=== PATIENT | female | born 1955 | race Caucasian/White ===

== ENCOUNTER 2018-03-20 15:46 | Inpatient (IN) | payer MEDICAID ==
[2018-03-20] MEDS ORDERED: Nystatin Cream 100,000 u/gm Cream 15 gm TP ONE (18:45)
[2018-03-20] MEDS ORDERED: Diatrizoate Meglumine/Diatri 30 mL Sol ONE (19:26)
[2018-03-20 19:33] LABS: % BASOPHILS 0.2 % (0.0-2.0); % LYMPHOCYTES 25.4 % (20.0-50.0); % MONOCYTES 9.1 % (2.0-10.0); % NEUTROPHILS 64.3 % (40.0-80.0); EOSINOPHILE ABSOLUTE 0.1 Th/cmm (0.1-0.4); HEMATOCRIT 45.2 % (41.0-60); HEMOGLOBIN 15.3 gm/dL (12-16); LYMPHOCYTE ABSOLUTE 2.7 Th/cmm (1.5-3.0); MEAN CELL VOLUME 99.4 fl (81-100); MEAN CORPUSCULAR HEMOGLOBIN 33.7 pg (27.0-31.0); MEAN CORPUSCULAR HGB CONC 33.9 pg (28.0-36.0); MEAN PLATELET VOLUME 9.4 fl; NEUTROPHILE ABSOLUTE 6.8 Th/cmm (1.8-8.0); PLATELET COUNT 260 Th/cmm (150-400); RED BLOOD COUNT 4.55 Mil/cmm (3.80-5.10); RED CELL DISTRIBUTION WIDTH 11.1 % (11.5-20.0); WHITE BLOOD COUNT 10.6 Th/cmm (4.8-10.8)
--- NOTE | 2018-03-20 20:17 | ED Physician Chart ---
ED Chief Complaint/HPI - Patient Information Date Seen:: 03/20/18 Time Seen:: 16:06 Chief Complaint:: need for gtube replacement History of Present Illness:: need for gtube replacement in a patient who has a mercedes catheter in place. brown/yellow pus with 4 x 4 Allergies:: Allergies Allergy/AdvReac Type Severity Reaction Status Date / Time No Known Allergies Allergy Verified 03/20/18 15:49 Vitals:: Vital Signs - 8 hr 03/20/18 03/20/18 16:06 19:37 Temp 99.1 F 99.1 F HR 105 105 RR 18 20 BP 121/77 121/77 O2 Sat % 99 99 Review:: Nurse's Note Reviewed, Transfer documents Reviewed ED Review of Systems - Review of Systems General/Constitutional: No fever, No chills, No weight loss, No weakness, No diaphoresis, No edema, No loss of appetite Skin: No skin lesions, Rash, No rash, No bruising, Other (cellulitis around g tube site) Head: No headache, No light-headedness Eyes: No loss of vision, No pain, No diplopia ENT: No earache, No nasal drainage, No sore throat, No tinnitus Neck: No neck pain, No swelling, No thyromegaly, No stiffness, No mass noted Cardio Vascular: No chest pain, No palpitations, No PND, No orthopnea, No edema GI: No nausea, No vomiting, No diarrhea, No pain, No melena, No hematochezia, No constipation, No hematemesis, Other (gtube fell out and was replaced by a mercedes catheter. previous gtube was a 22 slovenian.) G/U: No dysuria, No frequency, No hematuria Musculoskeletal: No bone or joint pain, No back pain, No muscle pain Endocrine: No polyuria, No polydipsia Psychiatric: No prior psych history, No depression, No anxiety, No suicidal ideation Hematopoietic: No bruising, No lymphadenopathy Allergic/Immuno: No urticaria, No angioedema Neurological: No syncope, No focal symptoms, No weakness, No paresthesia, No headache, No seizure, No dizziness, No confusion, No vertigo ED Past Medical History - Past Medical History Obtainable: No Past Medical History: HTN, PUD/GERD, Seizures, Other (Hepatitis B and C; developmentally disabled; quadriplegic) Family Medical History - Family Member Mother History Unknown: Yes ED Physical Exam - Physical Examination General/Constitutional: Awake, Alert, No distress Other Gen/Cons comments:: chronically ill appearing. Head: Atraumatic Eyes: Lids, conjuctiva normal, PERRL, EOMI Other Skin comments:: cellulitis around g tube site. ENMT: External ears, nose nl Neck: Nontender, No nuchal rigidity, No stridor Respiratory: Nl effort/Exclusion, Clear to Auscultation, No Wheeze/Rhonchi/Rales Cardio Vascular: RRR, No murmur, gallop, rubs, NL S1 S2 GI: No tenderness/rebounding/guarding, No organomegaly, No hernia, Normal BS's, Nondistended, No mass/bruits, No McBurney tenderness Other GI comments:: g tube with cellulitis around it of 3 x 3 inches in size. brown/yellow pus on gauze dressing. Other Extremities comments:: contracted extremities. ED Labs/Radiology/EKG Results - Lab Results Results: Laboratory Tests 03/20/18 19:15 WBC 10.6 RBC 4.55 Hgb 15.3 Hct 45.2 MCV 99.4 MCH 33.7 H MCHC Differential 33.9 RDW 11.1 L Plt Count 260 MPV 9.4 Neutrophils % 64.3 Lymphocytes % 25.4 Monocytes % 9.1 Eosinophils % 1.0 Basophils % 0.2 ED Assessment - Assessment General Assessment: gastrograffin extravasation of 50% of dye inserted. 50% in GI tract. Will order a CT scan. sign out to Dr. Green at 8:22 p.m. - Procedures Procedures:: g tube replace with a 22 Danish without any difficulty. ky jelly used and gtube easily inserted without difficulty. ED Septic Shock - . Is Septic Shock (SBP<90, OR Lactate>4 mmol\L) present?: No - <6hrs of presentation: Vital Signs: Vital Signs - 8 hr 03/20/18 03/20/18 16:06 19:37 Temp 99.1 F 99.1 F HR 105 105 RR 18 20 BP 121/77 121/77 O2 Sat % 99 99
[2018-03-20] MEDS: Sodium Chloride 0.9% 1,000 ML IV SCH (20:30)
[2018-03-20 20:38] LABS: ALBUMIN 3.6 gm/dL (3.7-5.3); ALKALINE PHOSPHATASE 93 U/L (34-104); ANION GAP 13.6 (7.0-16.0); BILIRUBIN,TOTAL 0.7 mg/dL (0.3-1.0); BUN - UREA NITROGEN 16 mg/dL (7-25); CALCIUM SERUM 8.9 mg/dL (8.6-10.3); CHLORIDE 104 mEq/L (98-107); CREATININE - SERUM 0.4 mg/dL (0.6-1.2); GFR AFRICAN-AMERICAN > 60.0 ml/min (>90); GFR NON AFRICAN-AMERICAN > 60.0 ml/min; GLUCOSE 109 mg/dL (70-105); MAGNESIUM 1.9 mg/dL (1.9-2.7); PHOSPHOROUS 3.2 mg/dL (2.5-5.0); POTASSIUM SERUM 3.6 mEq/L (3.5-5.1); SGOT 20 U/L (13-39); SGPT/ALT 25 U/L (7-52); SODIUM SERUM 143 mEq/L (136-145); TOTAL PROTEIN,SERUM 7.3 gm/dL (6.0-8.3)
[2018-03-20] MEDS: cefTRIAXone 1 GM in Sodium Chloride 0.9% 50 ML IV SCH (22:04)
[2018-03-21 05:14] LABS: RED CELL DISTRIBUTION WIDTH 11.2 % (11.5-20.0)
[2018-03-21 05:34] LABS: % BASOPHILS 1.1 % (0.0-2.0); % EOSINOPHILS 2.4 % (0.0-5.0); % LYMPHOCYTES 26.9 % (20.0-50.0); % MONOCYTES 8.9 % (2.0-10.0); % NEUTROPHILS 60.7 % (40.0-80.0); BASOPHILE ABSOLUTE 0.1 Th/cumm (0-0.2); EOSINOPHILE ABSOLUTE 0.2 Th/cmm (0.1-0.4); HEMATOCRIT 43.3 % (41.0-60); HEMOGLOBIN 14.9 gm/dL (12-16); LYMPHOCYTE ABSOLUTE 2.5 Th/cmm (1.5-3.0); MEAN CELL VOLUME 99.1 fl (81-100); MEAN CORPUSCULAR HEMOGLOBIN 34.2 pg (27.0-31.0); MEAN CORPUSCULAR HGB CONC 34.5 pg (28.0-36.0); MEAN PLATELET VOLUME 10.1 fl; MONOCYTE ABSOLUTE 0.8 Th/cmm (0.3-1.0); NEUTROPHILE ABSOLUTE 5.7 Th/cmm (1.8-8.0); PLATELET COUNT 263 Th/cmm (150-400); RED BLOOD COUNT 4.37 Mil/cmm (3.80-5.10); WHITE BLOOD COUNT 9.3 Th/cmm (4.8-10.8)
[2018-03-21 05:52] LABS: ANION GAP 15.1 (7.0-16.0); BUN - UREA NITROGEN 18 mg/dL (7-25); CALCIUM SERUM 8.7 mg/dL (8.6-10.3); CARBON DIOXIDE 24.9 mEq/L (21.0-31.0); CHLORIDE 108 mEq/L (98-107); CHOLESTEROL 156 mg/dL (<200); CREATININE - SERUM 0.4 mg/dL (0.6-1.2); GFR AFRICAN-AMERICAN > 60.0 ml/min (>90); GFR NON AFRICAN-AMERICAN > 60.0 ml/min; GLUCOSE 103 mg/dL (70-105); HDL -HIGH DENSITY LIPOPROTEIN 65 mg/dL (23-92); MAGNESIUM 1.9 mg/dL (1.9-2.7); SODIUM SERUM 144 mEq/L (136-145); TRIGLYCERIDES 60 mg/dL (<150)
--- NOTE | 2018-03-21 07:12 | Diagnostic Imaging Report ---
Exam: CT examination abdomen pelvis HISTORY: Gastrostomy tube replacement Total DLP equals 411 CTDI equals 10.1 Findings: Multiple contiguous thin section of the abdomen pelvis obtained from lower thorax to pubic symphysis without the administration of the intravenous contrast material. Oral contrast was utilized. The study was correlated with the prior examination of 07/15/2016. The study demonstrates normal aeration of lung parenchyma the bases. There is evidence for severe scoliosis of thoracic and lumbar spine to the right. The liver parenchyma spleen are normal. There is evidence of nonobstructing calculi bilaterally. Pancreas poorly visualized. The gallbladder contains calcifications consistent with cholelithiasis. No free fluid is noted. There is evidence for fecal impaction. Gastrostomy tube in the stomach. There is evidence for extravasated contrast material on the skin. The insertion of the gastrostomy tube. The uterine bladder is poorly visualized. IMPRESSION: Cholelithiasis. Multiple nonobstructing bilateral calculi. Fecal impaction. Gastrostomy tube in the stomach with extravasated contrast material on the skin surface. Clinical correlation recommended. The oral contrast progresses normal fashion to small bowel loops with reflux into the colon. The uterus is intact. Severe deformity of the hip joints bilaterally appreciated.
--- NOTE | 2018-03-21 07:50 | Diagnostic Imaging Report ---
Exam: Gastrostomy tube placement HISTORY: Replacement gastrostomy tube Findings: Upon injection of contrast material into gastrostomy tube there is normal opacification stomach. IMPRESSION: Gastrostomy tube in the stomach.
[2018-03-21] MEDS: Nystatin Cream 100,000 u/gm Cream 15 gm TP SCH ×2 (08:45→18:14)
[2018-03-21] MEDS ORDERED: Lactulose 10 Gm/15 mL 30mL UDC GT PRN (10:47)
[2018-03-21] MEDS ORDERED: Fleet Enema 135 mL RC PRN (10:47)
[2018-03-21] MEDS ORDERED: Albuterol/Ipratropium Neb 3 ML AERS HHN PRN (10:47)
[2018-03-21] MEDS ORDERED: Magnesium Hydroxide (MOM) 30 mL UDC GT PRN (10:49)
[2018-03-21] MEDS ORDERED: Non-Formulary Item 1 EA (Amino Acids/Protein Hydrolys [Pro-Stat Awc Liquid] 30 ML) GT SCH (11:00)
[2018-03-21] MEDS: Sodium Chloride 0.9% 1,000 ML IV SCH (12:05)
[2018-03-21] MEDS: Calcium Carb/Vit D 500 mg/200 U Tab GT SCH ×2 (13:42→18:10)
[2018-03-21] MEDS: Docusate Sodium 100 mg/10 mL UD GT SCH ×2 (13:42→18:10)
[2018-03-21] MEDS: Levetiracetam 500 mg/5mL 5mL UDSyr *for ORAL USE ONLY GT SCH ×2 (13:42→18:09)
[2018-03-21] MEDS: carBAMazepine 200 mg/10 mL UDC GT SCH ×2 (13:42→22:48)
[2018-03-21] MEDS: Multivitamin w/ Minerals Tab GT SCH (13:42)
--- NOTE | 2018-03-21 15:45 | History & Physical ---
ADMIT DATE: 03/20/2018 CHIEF COMPLAINT: G-tube discharge/cellulitis. HISTORY OF PRESENT ILLNESS: This is a 62-year-old female brought in from [facility] with the above-mentioned findings. It is unclear as to how long it has been noted that her G-tube had drainage and redness. She was brought into the ED where ER physician replaced the G-tube, however the old G-tube site was noted to have copious amounts of brown yellowish discharge as well as extensive surrounding skin redness consistent with cellulitis. Pertinent findings include an abdominal pelvis CT that showed: 1. Cholelithiasis. 2. Multiple obstructing bilateral calculi. 3. Fecal impaction. 4. Gastrostomy tube in the stomach with extravasated contrast material on the skin surface. 5. Oral contrast progresses in normal fashion to the small bowel loops with reflux into the colon. The G-tube was replaced by the ER physician and upper GI series showed confirmation of the G-tube been in place. PAST MEDICAL HISTORY: Previous GI bleed, admitted on 07/15/2016 for GI bleed, previous G-tube cellulitis, history of constipation, seizure disorder, mental retardation, intellectual disability, dementia, and quadriplegia. PAST SURGICAL HISTORY: G-tube placement and replacement. FAMILY HISTORY: Likely noncontributory to this admission. SOCIAL HISTORY: No tobacco, ETOH or illicit drug usage. Lives at a half-way ([facility]). ALLERGIES: NKDA. OUTPATIENT MEDICATIONS: Tylenol 650 q. 4 p.r.n. for fever or pain, amino acids and proteins 30 mL every day, aspirin 81 every day, Dulcolax 10 mg per rectum q.96 hours p.r.n. for constipation, calcium citrate and vitamin D3 b.i.d., carbamazepine 400 mg q. 12, Catapres 0.1 q. 12, docusate sodium 200 mg b.i.d., Nexium 40 mg day, Fleet enema 135 mL per rectum q.96 hours for severe constipation, DuoNeb q. 6 hours p.r.n. for SOB, lactulose 10 grams b.i.d. to every day, Keppra 5 mL via G-tube b.i.d., milk of magnesia 30 mL q. 72 hours, metoprolol 12.5 q.p.m., multivitamins and minerals daily. REVIEW OF SYSTEMS: Unable to be done given patient's condition, but there are no reports of fever, chills, no reports of nausea, vomiting, coffee-ground emesis or diarrhea. There is a chronic component of constipation given her history, but no reports of recent constipation or diarrhea noted. PHYSICAL EXAMINATION: VITAL SIGNS: Temperature 98.2. She has been afebrile, pulse 98-99, respirations 18-19, blood pressure 128/75 with sats of 94-97% on room air. GENERAL: She is a developmentally delayed female who appears to be well nourished, in no distress. Currently, she is curled up in bed, appeared to be comfortable, nontoxic. HEAD AND NECK: Normocephalic, atraumatic. Pupils are reactive to light. Extraocular movements are intact. Oropharynx is moist and clear. NECK: There is no JVD or LAD. CARDIOVASCULAR: Regular rate and rhythm without any murmurs. LUNGS: Decreased at the bases, but otherwise clear to auscultation bilaterally. ABDOMEN: Soft, supple, nontender, nondistended. G-tube site, there is redness around the G-tube stoma and the gauze has a brown yellowish discharge. LOWER EXTREMITIES: No pedal edema. LABORATORY DATA ON ADMISSION: CBC was essentially within normal limits. Chem-7 was essentially within normal limits. Lactic acid level 1.2. LFTs were within normal limits. Albumin 3.6. DIAGNOSTICS: Please refer to the HPI. ASSESSMENT: 1. G-tube site cellulitis, rule out abscess/fistula. 2. History of dysphagia with PEG placement. 3. History of previous GI bleed -- currently stable. 4. History of previous gastritis. 5. History of seizure disorder. 6. History of essential hypertension. 7. History of hepatitis B positive. 8. History of mental retardation/intellectual disability. PLAN: The patient has been admitted to the medical floor for further management and care. The patient has been started on IV antibiotics, IV fluids, and Nystatin cream to cover for possible fungal dermatitis. She will be kept on her other medications as scheduled and I will ask for a GI consult for further management and care. [facility]# [id number] [facility]
[2018-03-21] MEDS: cefTRIAXone 1 GM in Sodium Chloride 0.9% 50 ML IV SCH (22:50)
[2018-03-22 05:10] LABS: % EOSINOPHILS 7.7 % (0.0-5.0); % LYMPHOCYTES 36.5 % (20.0-50.0); % MONOCYTES 10.4 % (2.0-10.0); % NEUTROPHILS 44.4 % (40.0-80.0); BASOPHILE ABSOLUTE 0.1 Th/cumm (0-0.2); EOSINOPHILE ABSOLUTE 0.5 Th/cmm (0.1-0.4); HEMATOCRIT 39.6 % (41.0-60); HEMOGLOBIN 13.4 gm/dL (12-16); LYMPHOCYTE ABSOLUTE 2.4 Th/cmm (1.5-3.0); MEAN CELL VOLUME 99.4 fl (81-100); MEAN CORPUSCULAR HEMOGLOBIN 33.5 pg (27.0-31.0); MEAN CORPUSCULAR HGB CONC 33.7 pg (28.0-36.0); MEAN PLATELET VOLUME 9.3 fl; MONOCYTE ABSOLUTE 0.7 Th/cmm (0.3-1.0); NEUTROPHILE ABSOLUTE 2.9 Th/cmm (1.8-8.0); PLATELET COUNT 242 Th/cmm (150-400); RED BLOOD COUNT 3.99 Mil/cmm (3.80-5.10); WHITE BLOOD COUNT 6.6 Th/cmm (4.8-10.8)
[2018-03-22 05:28] LABS: ANION GAP 11.6 (7.0-16.0); BUN - UREA NITROGEN 15 mg/dL (7-25); CALCIUM SERUM 8.3 mg/dL (8.6-10.3); CARBON DIOXIDE 29.2 mEq/L (21.0-31.0); CHLORIDE 107 mEq/L (98-107); CREATININE - SERUM 0.4 mg/dL (0.6-1.2); GFR AFRICAN-AMERICAN > 60.0 ml/min (>90); GFR NON AFRICAN-AMERICAN > 60.0 ml/min; GLUCOSE 98 mg/dL (70-105); MAGNESIUM 1.8 mg/dL (1.9-2.7); POTASSIUM SERUM 3.8 mEq/L (3.5-5.1); SODIUM SERUM 144 mEq/L (136-145)
[2018-03-22] MEDS: Nystatin Cream 100,000 u/gm Cream 15 gm TP SCH (09:45)
[2018-03-22] MEDS: Levetiracetam 500 mg/5mL 5mL UDSyr *for ORAL USE ONLY GT SCH ×2 (09:45→17:58)
[2018-03-22] MEDS: Multivitamin w/ Minerals Tab GT SCH (09:46)
[2018-03-22] MEDS: carBAMazepine 200 mg/10 mL UDC GT SCH ×2 (09:46→23:04)
[2018-03-22] MEDS: Sodium Chloride 0.9% 1,000 ML IV SCH (09:47)
[2018-03-22] MEDS: Docusate Sodium 100 mg/10 mL UD GT SCH ×2 (09:50→17:57)
[2018-03-22] MEDS: Calcium Carb/Vit D 500 mg/200 U Tab GT SCH ×2 (09:50→17:57)
[2018-03-22 09:59] LABS: ESR SEDIMENTATION SED RATE 41 mm/hr (0-30)
[2018-03-22] MEDS ORDERED: MINERAL OIL ENEMA 135 ML BOTTLE RC ONE (10:00)
[2018-03-22] MEDS ORDERED: D5-0.45NS w/10 mEq KCL 1,000 ML IV SCH ×2 (10:00→16:00)
[2018-03-22] MEDS ORDERED: Mag Sulfate 2gm/50mL Premix 2 GM/50 ML BAG IV ONE (10:04)
--- NOTE | 2018-03-22 12:10 | Diagnostic Imaging Report ---
CHEST X-RAY: AP view INDICATION: Pneumonia COMPARISON: Chest x-ray 07/15/[address] abdomen and pelvis on 03/20/2018 FINDINGS: There is elevation of left hemidiaphragm. Suboptimal lung markings are noted. Left basal atelectatic changes seen with no focal consolidation or effusions. Advanced degenerative changes of spine are noted. Borderline prominent heart is noted. Gas-filled loops of the upper abdomen are noted. IMPRESSION: Left basal subsegmental atelectatic changes. No focal consolidation identified Suboptimal lung volumes. Gas-filled loops of bowel noted possibly due to an ileus..
--- NOTE | 2018-03-22 12:11 | Diagnostic Imaging Report ---
KUB single view HISTORY: Abdominal pain. COMPARISON: CT abdomen and pelvis on 03/20/2018 FINDINGS: There is mild decrease in the burden of stool when compared to prior recent CT examination. Moderate stool is noted greatest within the ascending colon and rectum. Generalized gaseous filled loops of bowel are noted. Advanced degenerative changes of the spine are noted with severe scoliosis. Deformities of the pelvis are again noted. Percutaneous gastric feeding tube is noted. IMPRESSION: Overall mild decrease in stool burden compared recent CT examination on 03/20/2018. Persistent moderate stool is seen in the region of the ascending colon and rectum.
[2018-03-22] MEDS: metroNIDAZOLE 500mg/NS 100mL 500 MG/100 ML BAG IV SCH ×2 (13:47→20:44)
[2018-03-22] MEDS ORDERED: Amino Acids 3% / Electrolytes 1,000 ML IV SCH (16:00)
[2018-03-22] MEDS: Albuterol/Ipratropium Neb 3 ML AERS HHN PRN ×2 (17:24→21:56)
[2018-03-22] MEDS: Zinc Oxide Ointment 60 gm TP SCH (20:44)
[2018-03-22] MEDS: cefTRIAXone 1 GM in Sodium Chloride 0.9% 50 ML IV SCH (23:07)
[2018-03-23] MEDS ORDERED: Levetiracetam 500 mg/5mL 5mL Vial IV ONE (00:40)
[2018-03-23] MEDS: metroNIDAZOLE 500mg/NS 100mL 500 MG/100 ML BAG IV SCH ×3 (05:36→20:38)
[2018-03-23] MEDS: Albuterol/Ipratropium Neb 3 ML AERS HHN PRN (07:16)
[2018-03-23 08:28] LABS: % BASOPHILS 0.2 % (0.0-2.0); % EOSINOPHILS 4.4 % (0.0-5.0); % LYMPHOCYTES 29.3 % (20.0-50.0); % MONOCYTES 9.1 % (2.0-10.0); EOSINOPHILE ABSOLUTE 0.3 Th/cmm (0.1-0.4); HEMATOCRIT 37.8 % (41.0-60); HEMOGLOBIN 12.6 gm/dL (12-16); LYMPHOCYTE ABSOLUTE 1.8 Th/cmm (1.5-3.0); MEAN CORPUSCULAR HEMOGLOBIN 32.9 pg (27.0-31.0); MEAN CORPUSCULAR HGB CONC 33.3 pg (28.0-36.0); MEAN PLATELET VOLUME 9.5 fl; MONOCYTE ABSOLUTE 0.6 Th/cmm (0.3-1.0); NEUTROPHILE ABSOLUTE 3.4 Th/cmm (1.8-8.0); PLATELET COUNT 244 Th/cmm (150-400); RED BLOOD COUNT 3.81 Mil/cmm (3.80-5.10); RED CELL DISTRIBUTION WIDTH 10.7 % (11.5-20.0); WHITE BLOOD COUNT 6.1 Th/cmm (4.8-10.8)
[2018-03-23 08:38] LABS: ANION GAP 12.1 (7.0-16.0); BUN - UREA NITROGEN 10 mg/dL (7-25); CARBON DIOXIDE 25.7 mEq/L (21.0-31.0); CHLORIDE 98 mEq/L (98-107); CREATININE - SERUM 0.4 mg/dL (0.6-1.2); GFR AFRICAN-AMERICAN > 60.0 ml/min (>90); GFR NON AFRICAN-AMERICAN > 60.0 ml/min; GLUCOSE 113 mg/dL (70-105); MAGNESIUM 2.2 mg/dL (1.9-2.7); PHOSPHOROUS 3.7 mg/dL (2.5-5.0); POTASSIUM SERUM 4.8 mEq/L (3.5-5.1); SODIUM SERUM 131 mEq/L (136-145)
[2018-03-23] MEDS ORDERED: D5-0.45NS 1,000 ML IV SCH (09:15)
[2018-03-23] MEDS: Nystatin Cream 100,000 u/gm Cream 15 gm TP SCH (09:34)
[2018-03-23] MEDS ORDERED: MINERAL OIL ENEMA 135 ML BOTTLE RC ONE (09:44)
--- NOTE | 2018-03-23 09:44 | GI Progress Note ---
Subjective - Review of Systems Service Date: 03/23/18 Subjective: G tube site still erythematous, with some drainage around the tube Objective - Results Result Diagrams: 03/23/18 08:08 03/23/18 08:08 Recent Labs: Laboratory Last Values WBC 6.1 Th/cmm (4.8-10.8) 03/23/18 08:08 RBC 3.81 Mil/cmm (3.80-5.10) 03/23/18 08:08 Hgb 12.6 gm/dL (12-16) 03/23/18 08:08 Hct 37.8 % (41.0-60) L 03/23/18 08:08 MCV 99.0 fl (81-100) 03/23/18 08:08 MCH 32.9 pg (27.0-31.0) H 03/23/18 08:08 MCHC Differential 33.3 pg (28.0-36.0) 03/23/18 08:08 RDW 10.7 % (11.5-20.0) L 03/23/18 08:08 Plt Count 244 Th/cmm (150-400) 03/23/18 08:08 MPV 9.5 fl 03/23/18 08:08 Neutrophils % 57.0 % (40.0-80.0) 03/23/18 08:08 Lymphocytes % 29.3 % (20.0-50.0) 03/23/18 08:08 Monocytes % 9.1 % (2.0-10.0) 03/23/18 08:08 Eosinophils % 4.4 % (0.0-5.0) 03/23/18 08:08 Basophils % 0.2 % (0.0-2.0) 03/23/18 08:08 ESR 41 mm/hr (0-30) H 03/22/18 04:50 Sodium 131 mEq/L (136-145) L 03/23/18 08:08 Potassium 4.8 mEq/L (3.5-5.1) 03/23/18 08:08 Chloride 98 mEq/L (98-107) 03/23/18 08:08 Carbon Dioxide 25.7 mEq/L (21.0-31.0) 03/23/18 08:08 Anion Gap 12.1 (7.0-16.0) 03/23/18 08:08 BUN 10 mg/dL (7-25) 03/23/18 08:08 Creatinine 0.4 mg/dL (0.6-1.2) L 03/23/18 08:08 Est GFR ( Amer) > 60.0 ml/min (>90) 03/23/18 08:08 Est GFR (Non-Af Amer) > 60.0 ml/min 03/23/18 08:08 BUN/Creatinine Ratio 25.0 03/23/18 08:08 Glucose 113 mg/dL (70-105) H 03/23/18 08:08 Whole Bld Lactic Acid 1.20 mmol/L (0.60-1.99) 03/20/18 19:15 Calcium 8.0 mg/dL (8.6-10.3) L 03/23/18 08:08 Phosphorus 3.7 mg/dL (2.5-5.0) 03/23/18 08:08 Magnesium 2.2 mg/dL (1.9-2.7) 03/23/18 08:08 Total Bilirubin 0.7 mg/dL (0.3-1.0) 03/20/18 19:15 AST 20 U/L (13-39) 03/20/18 19:15 ALT 25 U/L (7-52) 03/20/18 19:15 Alkaline Phosphatase 93 U/L (34-104) 03/20/18 19:15 C-Reactive Protein < 0.2 mg/dL (0.0-0.9) 03/22/18 04:50 Total Protein 7.3 gm/dL (6.0-8.3) 03/20/18 19:15 Albumin 3.6 gm/dL (3.7-5.3) L 03/20/18 19:15 Globulin 3.7 gm/dL 03/20/18 19:15 Albumin/Globulin Ratio 1.0 (1.0-1.8) 03/20/18 19:15 Prealbumin 13 mg/dL (10-36) 03/22/18 04:50 Triglycerides 60 mg/dL (<150) 03/21/18 04:45 Cholesterol 156 mg/dL (<200) 03/21/18 04:45 LDL Cholesterol Direct 87 mg/dL (75-193) 03/21/18 04:45 HDL Cholesterol 65 mg/dL (23-92) 03/21/18 04:45 TSH 1.11 uIU/ml (0.34-5.60) 03/21/18 04:45 Vancomycin Trough 5.0 ug/mL (5-10) 03/23/18 08:08 - Physical Exam Vitals and I&O: Vital Signs Temp 97.1 F 03/23/18 07:44 Pulse 84 03/23/18 07:44 Resp 18 03/23/18 07:44 BP 135/84 03/23/18 07:44 Pulse Ox 98 03/23/18 07:44 Intake & Output 03/22/18 03/23/18 03/23/18 18:59 06:59 18:59 Intake Total 350 500 Balance 350 500 Weight (lbs) 45.813 kg Intake: Intake, IV Amount 350 100 Vancomycin HCl 1 gm In 250 Sodium Chloride 0.9% 250 ml @ 166.667 mls/hr IV Q24HR@0900 [facility] Rx#: [id number] metroNIDAZOLE 500mg/NS 100 100 100mL 500 mg In 100 ml @ 100 mls/hr IV Q8HR [facility] Rx #:[id number] TPN/PPN 400 Other: # Voids 2 # Bowel Movements 1 Weight Source Bedscale Active Medications: Current Medications Acetaminophen (Tylenol 650mg/20.3ml Suspension) 650 mg GT Q4HR PRN PRN Reason: Pain Or Fever >100 Stop: 05/20/18 10:46 Albuterol/Ipratropium (Duoneb Neb) 3 ml HHN [id number] PRN PRN Reason: sob Stop: 05/20/18 10:46 Last Admin: 03/23/18 07:16 Dose: 3 ml Bisacodyl (Dulcolax 10 Mg Supp) 10 mg RC Q96H PRN PRN Reason: Constipation Stop: 05/20/18 10:46 Last Admin: 03/22/18 19:42 Dose: 10 mg Calcium/Vitamin D (Oscal W/Vitamin D) 2 tab GT BID [facility] Stop: 05/20/18 10:59 Last Admin: 03/22/18 17:57 Dose: Not Given Carbamazepine (Tegretol) 400 mg GT Q12HR@0900,2100 [facility] Stop: 05/20/18 10:59 Last Admin: 03/22/18 23:04 Dose: Not Given Docusate Sodium (Colace) 200 mg GT BID [facility] Stop: 05/20/18 10:59 Last Admin: 03/22/18 17:57 Dose: Not Given Ceftriaxone Sodium 1 gm/ (Sodium Chloride) 50 mls @ 100 mls/hr IV Q24H [facility] Stop: 05/19/18 21:59 Last Admin: 03/22/18 23:07 Dose: 100 mls/hr Vancomycin HCl 1 gm/ Sodium (Chloride) 250 mls @ 166.667 mls/hr IV Q24HR@0900 [facility] Stop: 05/20/18 10:59 Last Admin: 03/23/18 09:34 Dose: 167 mls/hr Metronidazole (Flagyl) 500 mg in 100 mls @ 100 mls/hr IV Q8HR [facility] Stop: 05/21/18 12:59 Last Admin: 03/23/18 05:36 Dose: 100 mls/hr Amino Acids/Electrolytes (Procalamine) 1,000 mls @ 41 mls/hr IV .Q24H [facility] Stop: 05/21/18 15:59 Last Admin: 03/22/18 19:01 Dose: 41 mls/hr Levetiracetam 500 mg/ Sodium (Chloride) 105 mls @ 400 mls/hr IV Q12H [facility] Stop: 05/21/18 22:59 Last Admin: 03/23/18 00:49 Dose: 400 mls/hr Dextrose/Sodium Chloride (D5-0.45ns) 1,000 mls @ 35 mls/hr IV .Q24H [facility] Stop: 05/22/18 09:14 Last Admin: 03/23/18 09:35 Dose: 35 mls/hr Lactulose (Cephulac) 10 gm GT DAILY PRN PRN Reason: Constipation Last Admin: 03/22/18 13:47 Dose: 10 gm Magnesium Hydroxide (Milk Of Magnesia) 30 ml GT Q72H PRN PRN Reason: Constipation Stop: 05/20/18 10:48 Metoprolol Tartrate (Lopressor) 12.5 mg GT QPM [facility] Stop: 05/20/18 16:59 Last Admin: 03/22/18 17:58 Dose: Not Given Miscellaneous (Vancomycin Iv Per Pharmacy) 1 ea MC DAILY [facility] Stop: 05/20/18 11:29 Miscellaneous (Ppn Per Pharmacy) 1 ea PRN PRN PRN Reason: PROTOCOL Stop: 05/21/18 14:48 Nystatin (Mycostatin Cream) 1 appl TP DAILY [facility] Stop: 05/22/18 08:59 Last Admin: 03/23/18 09:34 Dose: 1 appl Petrolatum (Zinc Oxide) 1 appl TP HS [facility] Stop: 05/21/18 20:59 Last Admin: 03/22/18 20:44 Dose: 1 appl Sodium Phosphate (Fleet Enema) 135 ml RC Q96H PRN PRN Reason: IF DULCOLAX INEFFECTIVE Stop: 05/20/18 10:46 General: Alert Cardiovascular: Regular rate Abdomen: Bowel sounds, Other (g tube site with ring of erythema, drainage coming from around the tube), no Soft, no Tender, no Hepatomegaly, no Splenomegaly - Procedures Procedures: Procedures Procedure Code Date ASPIR CURETT UTERUS NEC 69.59 06/12/11 CHANGE FEEDING DEVICE IN UP INTEST TRACT, TELEPHONE BETTING CLERK APPROACH 6J52XQB 01/27/16 CHANGE GASTROSTOMY TUBE 86490 05/21/15 DILATION AND CURETTAGE 32502 06/12/11 EGD BIOPSY SINGLE/MULTIPLE 92875 07/15/16 EXCISION OF STOMACH, ENDO, DIAGN [id number] 07/15/16 INSERTION OF FEEDING DEVICE INTO STOMACH, ENDO [id number] 07/15/16 LAPARO PROC ABDM/PER/OMENT 06553 07/29/13 LAPAROSCOP APPENDECTOMY 47.01 07/29/13 LAPAROSCOP LYSIS-PERITONEAL ADHES 54.51 07/29/13 LAPAROSCOPY APPENDECTOMY 18993 07/29/13 REPLACE GASTROSTOMY TUBE 97.02 07/26/14 Assessment/Plan - Assessment Assessment: # G tube site cellulitis # Dysphagia # Developmental delay At this point, unclear if we will be able to save this tube. The erythema appears about the same today, despite vancomycin and nystatin cream. CT scan does not show obvious abscess Plan: - hold feeding, and convert meds to IV form if possible - if the site does not improve with this conservative approach, then will need to pull the tube. In that case, new G tube would likely need to wait until the area has completely healed - typically 1-2 weeks - nystatin and zinc cream orderd - cont abx
[2018-03-23] MEDS: Docusate Sodium 100 mg/10 mL UD GT SCH ×2 (09:51→16:48)
[2018-03-23] MEDS: carBAMazepine 200 mg/10 mL UDC GT SCH ×2 (09:51→21:06)
[2018-03-23] MEDS: Calcium Carb/Vit D 500 mg/200 U Tab GT SCH (09:51)
[2018-03-23] MEDS: Multivitamin w/ Minerals Tab GT SCH (09:51)
--- NOTE | 2018-03-23 13:47 | Consultation ---
DATE OF CONSULTATION: 03/22/2018 INPATIENT GASTROINTESTINAL CONSULTATION CONSULTING PHYSICIAN: Dr. Loaiza. REASON FOR CONSULTATION: G-tube site cellulitis and leaking around the G-tube. HISTORY OF PRESENT ILLNESS: The patient is a 62-year-old female with past medical history significant for seizure disorder, developmental delay and quadriplegia, admitted to the hospital with leakage and redness around her G-tube from her facility. It is unclear when the patient developed these signs of infection, but on presentation, she has copious leakage around the tube as well as redness around her tube as well. A CT scan has shown that the G-tube is in the correct location and there is no obvious abscess. At current time, she is having some liquid around the tube even though no tube feeds are going in. PAST MEDICAL HISTORY: Developmental delay, quadriplegia, constipation, dysphagia with a G-tube, seizure disorder. PAST SURGICAL HISTORY: G-tube placement. FAMILY HISTORY: Noncontributory. SOCIAL HISTORY: No illicit drug use. She lives at a [place] [facility]. ALLERGIES: No known drug allergies. REVIEW OF SYSTEMS: Not possible, the patient is not able to participate in the interview. CURRENT MEDICATIONS: Include Tylenol, albuterol, bisacodyl, calcium, vitamin D, carbamazepine, ceftriaxone, Colace, lactulose, Keppra, milk of magnesia, Lopressor, Flagyl, Nystatin, zinc, Fleet enema, vancomycin. PHYSICAL EXAMINATION: VITAL SIGNS: Blood pressure is 148/86, pulse 97 beats per minute, respiratory rate of 20, temperature is 98.3. GENERAL: The patient is lying on her back. She is alert and oriented x 0, in no apparent distress. HEAD, EARS, EYES, NOSE AND THROAT: Normocephalic, atraumatic appearing head. Her eyes are open, she does not track. Pupils are otherwise equal and reactive. Moist mucous membrane. NECK: No obvious JVD or thyromegaly. CHEST: There are some crackles at the bases. CARDIOVASCULAR: S1 and S2 are present, regular rate and rhythm. ABDOMEN: The gastrocutaneous fistula is located in the upper left quadrant. There is a 3-4 cm ring of erythema around this as well as some leakage from around the tube itself. There is no obvious induration. Otherwise, the abdomen is soft and nontender. EXTREMITIES: Frail, contracted. No pitting edema. Pulses are not present. SKIN: There is no obvious jaundice. LABORATORY DATA: White blood cell count of 6.6, hemoglobin 13.4, platelet count was 242. Sodium 144, BUN 15, creatinine 0.4. AST 20, ALT 25, total bilirubin 0.7. IMAGING: An abdomen CT scan was performed and this shows evidence of severe scoliosis. Liver parenchyma is normal. Gallbladder contains gallstones. There is no free fluid. Gastrostomy tube is in the stomach. There is extravasated contrast material on the skin. IMPRESSION: This is a 62-year-old female with history of developmental delay, quadriplegia, dysphagia with a G-tube, admitted to the hospital with G-tube site malfunction. 1. G-tube site cellulitis. 2. G-tube site leakage. 3. Developmental delay. 4. Quadriplegia. 5. Dysphagia. DISCUSSION: Given how this G-tube appears on exam, it may not be able to be saved with just antibiotics alone. We will try to stop the feeding and see if the redness may decrease with the appropriate antibiotics as well as zinc and Nystatin creams; however, if the redness stays how it is and she continues to have leakage around the tube, then I think the tube will need to be pulled out and the area should be allowed to heal. In that scenario, we will need to wait likely several weeks before insertion of a new tube so the area can completely heal. RECOMMENDATIONS: 1. We will add zinc based cream to be given at night and then continue the Nystatin cream during the day. 2. Continue antibiotic therapy that covers skin jackie, which she is on vancomycin and Flagyl. 3. We would add at least PPN at this point given I do not think she is going to be able to have feeding for an extended period of time. 4. If the skin looks the same over the next day or two, I think we will have to pull out the tube in which case we would need the skin to completely heal before insertion of a new tube. Thank you for allowing me to participate in her care. Please call with any further questions. JOB# [id number]
[2018-03-23] MEDS ORDERED: TPN 8.5%-70% CUSTOM IV SCH (16:00)
[2018-03-23] MEDS: INSULIN ASPART SLIDING SCALE 100 UNITS/ML UNIT SUBQ SCH (16:09)
[2018-03-23] MEDS: D5-0.45NS 1,000 ML IV SCH (16:34)
[2018-03-23] MEDS: Zinc Oxide Ointment 60 gm TP SCH (21:07)
[2018-03-23] MEDS: cefTRIAXone 1 GM in Sodium Chloride 0.9% 50 ML IV SCH (23:50)
[2018-03-24] MEDS: INSULIN ASPART SLIDING SCALE 100 UNITS/ML UNIT SUBQ SCH ×5 (00:10→22:00)
[2018-03-24] MEDS: metroNIDAZOLE 500mg/NS 100mL 500 MG/100 ML BAG IV SCH ×2 (04:44→12:37)
[2018-03-24 06:24] VITALS: BP 161/104
[2018-03-24 06:43] LABS: % BASOPHILS 0.9 % (0.0-2.0); % EOSINOPHILS 3.7 % (0.0-5.0); % LYMPHOCYTES 25.6 % (20.0-50.0); % NEUTROPHILS 60.8 % (40.0-80.0); BASOPHILE ABSOLUTE 0.1 Th/cumm (0-0.2); EOSINOPHILE ABSOLUTE 0.3 Th/cmm (0.1-0.4); HEMATOCRIT 40.7 % (41.0-60); HEMOGLOBIN 13.4 gm/dL (12-16); LYMPHOCYTE ABSOLUTE 1.8 Th/cmm (1.5-3.0); MEAN CELL VOLUME 99.8 fl (81-100); MEAN CORPUSCULAR HEMOGLOBIN 32.9 pg (27.0-31.0); MEAN PLATELET VOLUME 9.7 fl; MONOCYTE ABSOLUTE 0.6 Th/cmm (0.3-1.0); NEUTROPHILE ABSOLUTE 4.2 Th/cmm (1.8-8.0); PLATELET COUNT 278 Th/cmm (150-400); RED BLOOD COUNT 4.08 Mil/cmm (3.80-5.10); RED CELL DISTRIBUTION WIDTH 10.7 % (11.5-20.0)
[2018-03-24 06:58] LABS: ANION GAP 11.5 (7.0-16.0); BUN - UREA NITROGEN 13 mg/dL (7-25); CALCIUM SERUM 8.2 mg/dL (8.6-10.3); CARBON DIOXIDE 26.3 mEq/L (21.0-31.0); CHLORIDE 106 mEq/L (98-107); CREATININE - SERUM 0.3 mg/dL (0.6-1.2); GFR AFRICAN-AMERICAN > 60.0 ml/min (>90); GFR NON AFRICAN-AMERICAN > 60.0 ml/min; GLUCOSE 122 mg/dL (70-105); MAGNESIUM 1.9 mg/dL (1.9-2.7); PHOSPHOROUS 2.6 mg/dL (2.5-5.0); SODIUM SERUM 141 mEq/L (136-145)
[2018-03-24 07:11] LABS: POTASSIUM SERUM 2.8 mEq/L (3.5-5.1)
[2018-03-24] MEDS: Nystatin Cream 100,000 u/gm Cream 15 gm TP SCH (08:25)
[2018-03-24] MEDS: carBAMazepine 200 mg/10 mL UDC GT SCH ×2 (08:25→20:09)
[2018-03-24] MEDS: Docusate Sodium 100 mg/10 mL UD GT SCH ×2 (08:25→18:26)
[2018-03-24] MEDS: KCL 20mEq/100mL Premix Bag IV SCH ×2 (09:15→11:21)
--- NOTE | 2018-03-24 09:17 | GI Progress Note ---
Subjective - Review of Systems Service Date: 03/24/18 Subjective: G tube site a bit less red today, still some leakage Objective - Results Result Diagrams: 03/24/18 06:00 03/24/18 06:00 Recent Labs: Laboratory Last Values WBC 7.0 Th/cmm (4.8-10.8) 03/24/18 06:00 RBC 4.08 Mil/cmm (3.80-5.10) 03/24/18 06:00 Hgb 13.4 gm/dL (12-16) 03/24/18 06:00 Hct 40.7 % (41.0-60) L 03/24/18 06:00 MCV 99.8 fl (81-100) 03/24/18 06:00 MCH 32.9 pg (27.0-31.0) H 03/24/18 06:00 MCHC Differential 33.0 pg (28.0-36.0) 03/24/18 06:00 RDW 10.7 % (11.5-20.0) L 03/24/18 06:00 Plt Count 278 Th/cmm (150-400) 03/24/18 06:00 MPV 9.7 fl 03/24/18 06:00 Neutrophils % 60.8 % (40.0-80.0) 03/24/18 06:00 Lymphocytes % 25.6 % (20.0-50.0) 03/24/18 06:00 Monocytes % 9.0 % (2.0-10.0) 03/24/18 06:00 Eosinophils % 3.7 % (0.0-5.0) 03/24/18 06:00 Basophils % 0.9 % (0.0-2.0) 03/24/18 06:00 ESR 41 mm/hr (0-30) H 03/22/18 04:50 Sodium 141 mEq/L (136-145) 03/24/18 06:00 Potassium 2.8 mEq/L (3.5-5.1) L* D 03/24/18 06:00 Chloride 106 mEq/L (98-107) 03/24/18 06:00 Carbon Dioxide 26.3 mEq/L (21.0-31.0) 03/24/18 06:00 Anion Gap 11.5 (7.0-16.0) 03/24/18 06:00 BUN 13 mg/dL (7-25) 03/24/18 06:00 Creatinine 0.3 mg/dL (0.6-1.2) L 03/24/18 06:00 Est GFR ( Amer) > 60.0 ml/min (>90) 03/24/18 06:00 Est GFR (Non-Af Amer) > 60.0 ml/min 03/24/18 06:00 BUN/Creatinine Ratio 43.3 03/24/18 06:00 Glucose 122 mg/dL (70-105) H 03/24/18 06:00 POC Glucose 118 MG/DL (70 - 105) H 03/24/18 05:45 Whole Bld Lactic Acid 1.20 mmol/L (0.60-1.99) 03/20/18 19:15 Calcium 8.2 mg/dL (8.6-10.3) L 03/24/18 06:00 Phosphorus 2.6 mg/dL (2.5-5.0) 03/24/18 06:00 Magnesium 1.9 mg/dL (1.9-2.7) 03/24/18 06:00 Total Bilirubin 0.7 mg/dL (0.3-1.0) 03/20/18 19:15 AST 20 U/L (13-39) 03/20/18 19:15 ALT 25 U/L (7-52) 03/20/18 19:15 Alkaline Phosphatase 93 U/L (34-104) 03/20/18 19:15 C-Reactive Protein < 0.2 mg/dL (0.0-0.9) 03/22/18 04:50 Total Protein 7.3 gm/dL (6.0-8.3) 03/20/18 19:15 Albumin 3.6 gm/dL (3.7-5.3) L 03/20/18 19:15 Globulin 3.7 gm/dL 03/20/18 19:15 Albumin/Globulin Ratio 1.0 (1.0-1.8) 03/20/18 19:15 Prealbumin 13 mg/dL (10-36) 03/22/18 04:50 Triglycerides 60 mg/dL (<150) 03/21/18 04:45 Cholesterol 156 mg/dL (<200) 03/21/18 04:45 LDL Cholesterol Direct 87 mg/dL (75-193) 03/21/18 04:45 HDL Cholesterol 65 mg/dL (23-92) 03/21/18 04:45 TSH 1.11 uIU/ml (0.34-5.60) 03/21/18 04:45 Vancomycin Trough 5.0 ug/mL (5-10) 03/23/18 08:08 - Physical Exam Vitals and I&O: Vital Signs Temp 99 F 03/24/18 04:00 Pulse 95 03/24/18 04:00 Resp 18 03/24/18 04:00 BP 161/104 03/24/18 06:23 Pulse Ox 98 03/24/18 04:00 Intake & Output 03/23/18 03/24/18 03/24/18 18:59 06:59 18:59 Intake Total 205 350 Balance 205 350 Intake: Intake, IV Amount 205 350 Levetiracetam 500 mg In 105 Sodium Chloride 0.9% 100 ml @ 400 mls/hr IV Q12H [facility] Rx#:[id number] Vancomycin HCl 1 gm In 250 Sodium Chloride 0.9% 250 ml @ 165 mls/hr IV Q12H [facility] Rx#:[id number] metroNIDAZOLE 500mg/NS 100 100 100mL 500 mg In 100 ml @ 100 mls/hr IV Q8HR [facility] Rx #:[id number] Active Medications: Current Medications Acetaminophen (Tylenol 650mg/20.3ml Suspension) 650 mg GT Q4HR PRN PRN Reason: Pain Or Fever >100 Stop: 05/20/18 10:46 Albuterol/Ipratropium (Duoneb Neb) 3 ml HHN [id number] PRN PRN Reason: sob Stop: 05/20/18 10:46 Last Admin: 03/23/18 07:16 Dose: 3 ml Bisacodyl (Dulcolax 10 Mg Supp) 10 mg RC Q96H PRN PRN Reason: Constipation Stop: 05/20/18 10:46 Last Admin: 03/22/18 19:42 Dose: 10 mg Carbamazepine (Tegretol) 400 mg GT Q12HR@0900,2100 [facility] Stop: 05/20/18 10:59 Last Admin: 03/24/18 08:25 Dose: Not Given Docusate Sodium (Colace) 200 mg GT BID [facility] Stop: 05/20/18 10:59 Last Admin: 03/24/18 08:25 Dose: Not Given Ceftriaxone Sodium 1 gm/ (Sodium Chloride) 50 mls @ 100 mls/hr IV Q24H [facility] Stop: 05/19/18 21:59 Last Admin: 03/23/18 23:50 Dose: 100 mls/hr Metronidazole (Flagyl) 500 mg in 100 mls @ 100 mls/hr IV Q8HR [facility] Stop: 05/21/18 12:59 Last Admin: 03/24/18 04:44 Dose: 100 mls/hr Levetiracetam 500 mg/ Sodium (Chloride) 105 mls @ 400 mls/hr IV Q12H [facility] Stop: 05/21/18 22:59 Last Admin: 03/24/18 00:59 Dose: 400 mls/hr Vancomycin HCl 1 gm/ Sodium (Chloride) 250 mls @ 165 mls/hr IV Q12H [facility] Stop: 05/22/18 20:59 Last Admin: 03/24/18 08:25 Dose: 165 mls/hr Multivitamins/Minerals 5 ml/Chromium/Copper/Manganese/Zinc 1 ml/ Sodium Chloride 45 meq/Sodium Phosphate 10 mmole/Calcium Gluconate 1.5 gm/Magnesium Sulfate 8.7 meq/Dextrose/ Amino Acids/Electrolytes/ Fat Emulsion Intravenous/ Sterile Water 1,560 mls @ 65 mls/hr IV .Q24H [facility] Stop: 04/21/18 15:59 Last Admin: 03/23/18 16:32 Dose: 65 mls/hr Dextrose/Sodium Chloride (D5-0.45ns) 1,000 mls @ 10 mls/hr IV .Q24H [facility] Stop: 05/22/18 15:59 Last Admin: 03/23/18 16:34 Dose: 10 mls/hr Potassium Chloride (Potassium Chloride) 20 meq in 100 mls @ 50 mls/hr IV Q2H [facility] Stop: 03/24/18 12:44 Insulin Aspart (Novolog Insulin Sliding Scale) 0 units SUBQ Q6H [facility]; Protocol Stop: 05/22/18 15:59 Last Admin: 03/24/18 05:46 Dose: Not Given Lactulose (Cephulac) 10 gm GT DAILY PRN PRN Reason: Constipation Last Admin: 03/22/18 13:47 Dose: 10 gm Magnesium Hydroxide (Milk Of Magnesia) 30 ml GT Q72H PRN PRN Reason: Constipation Stop: 05/20/18 10:48 Metoprolol Tartrate (Lopressor) 12.5 mg GT QPM [facility] Stop: 05/20/18 16:59 Last Admin: 03/23/18 16:48 Dose: Not Given Miscellaneous (Vancomycin Iv Per Pharmacy) 1 ea MC DAILY [facility] Stop: 05/20/18 11:29 Miscellaneous (Ppn Per Pharmacy) 1 ea MC PRN PRN PRN Reason: PROTOCOL Stop: 05/21/18 14:48 Nystatin (Mycostatin Cream) 1 appl TP DAILY [facility] Stop: 05/22/18 08:59 Last Admin: 03/24/18 08:25 Dose: 1 appl Petrolatum (Zinc Oxide) 1 appl TP HS [facility] Stop: 05/21/18 20:59 Last Admin: 03/23/18 21:07 Dose: 1 appl Sodium Phosphate (Fleet Enema) 135 ml RC Q96H PRN PRN Reason: IF DULCOLAX INEFFECTIVE Stop: 05/20/18 10:46 General: Alert HEENT: Atraumatic Neck: Supple Cardiovascular: Regular rate Abdomen: Bowel sounds, Other (g tube site with ring of erythema, drainage coming from around the tube), no Soft, no Tender, no Hepatomegaly, no Splenomegaly, no Distended, no Rebound, no Mass Skin: Rash - Procedures Procedures: Procedures Procedure Code Date ASPIR CURETT UTERUS NEC 69.59 06/12/11 CHANGE FEEDING DEVICE IN UP INTEST TRACT, REMOTE SENSING ANALYST APPROACH [id number] 01/27/16 CHANGE GASTROSTOMY TUBE 23132 05/21/15 DILATION AND CURETTAGE 92798 06/12/11 EGD BIOPSY SINGLE/MULTIPLE 08299 07/15/16 EXCISION OF STOMACH, ENDO, DIAGN [id number] 07/15/16 INSERTION OF FEEDING DEVICE INTO STOMACH, ENDO [id number] 07/15/16 [facility]O PROC ABDM/PER/OMENT 77488 07/29/13 LAPAROSCOP APPENDECTOMY 47.01 07/29/13 LAPAROSCOP LYSIS-PERITONEAL ADHES 54.51 07/29/13 LAPAROSCOPY APPENDECTOMY 26998 07/29/13 REPLACE GASTROSTOMY TUBE 97.02 07/26/14 Assessment/Plan - Assessment Assessment: # G tube site cellulitis # Dysphagia # Developmental delay At this point, unclear if we will be able to save this tube. T May be a bit improved as of 03/24/18 in terms of erythema Plan: - cont hold feeds and try avoid using tube during healing - may need another few days to a week to heal up. She can be here or at SNF for this - if the site does not improve with this conservative approach, then will need to pull the tube. In that case, new G tube would likely need to wait until the area has completely healed - typically 1-2 weeks - nystatin and zinc cream orderd - cont abx
[2018-03-24] MEDS ORDERED: Potassium Chloride 20 mEq ER Tab PO ONE (12:41)
--- NOTE | 2018-03-24 13:06 | Internal Medicine Prog Note ---
Internal Medicine Subjective - Subjective Service Date: 03/23/18 Patient seen and examined:: with staff Patient is:: awake, non-verbal Per staff patient has:: no adverse event (TPN STARTED) Internal Medicine Objective - Results Result Diagrams: 03/24/18 06:00 03/24/18 06:00 Recent Labs: Laboratory Last Values WBC 7.0 Th/cmm (4.8-10.8) 03/24/18 06:00 RBC 4.08 Mil/cmm (3.80-5.10) 03/24/18 06:00 Hgb 13.4 gm/dL (12-16) 03/24/18 06:00 Hct 40.7 % (41.0-60) L 03/24/18 06:00 MCV 99.8 fl (81-100) 03/24/18 06:00 MCH 32.9 pg (27.0-31.0) H 03/24/18 06:00 MCHC Differential 33.0 pg (28.0-36.0) 03/24/18 06:00 RDW 10.7 % (11.5-20.0) L 03/24/18 06:00 Plt Count 278 Th/cmm (150-400) 03/24/18 06:00 MPV 9.7 fl 03/24/18 06:00 Neutrophils % 60.8 % (40.0-80.0) 03/24/18 06:00 Lymphocytes % 25.6 % (20.0-50.0) 03/24/18 06:00 Monocytes % 9.0 % (2.0-10.0) 03/24/18 06:00 Eosinophils % 3.7 % (0.0-5.0) 03/24/18 06:00 Basophils % 0.9 % (0.0-2.0) 03/24/18 06:00 ESR 41 mm/hr (0-30) H 03/22/18 04:50 Sodium 141 mEq/L (136-145) 03/24/18 06:00 Potassium 2.8 mEq/L (3.5-5.1) L* D 03/24/18 06:00 Chloride 106 mEq/L (98-107) 03/24/18 06:00 Carbon Dioxide 26.3 mEq/L (21.0-31.0) 03/24/18 06:00 Anion Gap 11.5 (7.0-16.0) 03/24/18 06:00 BUN 13 mg/dL (7-25) 03/24/18 06:00 Creatinine 0.3 mg/dL (0.6-1.2) L 03/24/18 06:00 Est GFR ( Amer) > 60.0 ml/min (>90) 03/24/18 06:00 Est GFR (Non-Af Amer) > 60.0 ml/min 03/24/18 06:00 BUN/Creatinine Ratio 43.3 03/24/18 06:00 Glucose 122 mg/dL (70-105) H 03/24/18 06:00 POC Glucose 118 MG/DL (70 - 105) H 03/24/18 05:45 Whole Bld Lactic Acid 1.20 mmol/L (0.60-1.99) 03/20/18 19:15 Calcium 8.2 mg/dL (8.6-10.3) L 03/24/18 06:00 Phosphorus 2.6 mg/dL (2.5-5.0) 03/24/18 06:00 Magnesium 1.9 mg/dL (1.9-2.7) 03/24/18 06:00 Total Bilirubin 0.7 mg/dL (0.3-1.0) 03/20/18 19:15 AST 20 U/L (13-39) 03/20/18 19:15 ALT 25 U/L (7-52) 03/20/18 19:15 Alkaline Phosphatase 93 U/L (34-104) 03/20/18 19:15 C-Reactive Protein < 0.2 mg/dL (0.0-0.9) 03/22/18 04:50 Total Protein 7.3 gm/dL (6.0-8.3) 03/20/18 19:15 Albumin 3.6 gm/dL (3.7-5.3) L 03/20/18 19:15 Globulin 3.7 gm/dL 03/20/18 19:15 Albumin/Globulin Ratio 1.0 (1.0-1.8) 03/20/18 19:15 Prealbumin 13 mg/dL (10-36) 03/22/18 04:50 Triglycerides 60 mg/dL (<150) 03/21/18 04:45 Cholesterol 156 mg/dL (<200) 03/21/18 04:45 LDL Cholesterol Direct 87 mg/dL (75-193) 03/21/18 04:45 HDL Cholesterol 65 mg/dL (23-92) 03/21/18 04:45 TSH 1.11 uIU/ml (0.34-5.60) 03/21/18 04:45 Vancomycin Trough 5.0 ug/mL (5-10) 03/23/18 08:08 - Physical Exam Vitals and I&O: Vital Signs Temp 98.6 F 03/24/18 11:52 Pulse 72 03/24/18 11:52 Resp 18 03/24/18 11:52 BP 143/70 03/24/18 11:52 Pulse Ox 98 03/24/18 11:52 Intake & Output 03/23/18 03/24/18 03/24/18 18:59 06:59 18:59 Intake Total 205 555 400 Balance 205 555 400 Weight (lbs) 45.949 kg Intake: Intake, IV Amount 205 555 100 KCL 20mEq/100mL Premix 20 100 meq In 100 ml @ 50 mls/ hr IV Q2H [facility] Rx#: [id number] Levetiracetam 500 mg In 105 105 Sodium Chloride 0.9% 100 ml @ 400 mls/hr IV Q12H [facility] Rx#:[id number] Vancomycin HCl 1 gm In 250 Sodium Chloride 0.9% 250 ml @ 165 mls/hr IV Q12H [facility] Rx#:[id number] metroNIDAZOLE 500mg/NS 100 200 100mL 500 mg In 100 ml @ 100 mls/hr IV Q8HR [facility] Rx #:[id number] Oral 0 Tube Feeding 0 TPN/PPN 300 Other: Weight Source Bedscale Active Medications: Current Medications Acetaminophen (Tylenol 650mg/20.3ml Suspension) 650 mg GT Q4HR PRN PRN Reason: Pain Or Fever >100 Stop: 05/20/18 10:46 Albuterol/Ipratropium (Duoneb Neb) 3 ml HHN [id number] PRN PRN Reason: sob Stop: 05/20/18 10:46 Last Admin: 03/23/18 07:16 Dose: 3 ml Bisacodyl (Dulcolax 10 Mg Supp) 10 mg RC Q96H PRN PRN Reason: Constipation Stop: 05/20/18 10:46 Last Admin: 03/22/18 19:42 Dose: 10 mg Carbamazepine (Tegretol) 400 mg GT Q12HR@0900,2100 [facility] Stop: 05/20/18 10:59 Last Admin: 03/24/18 08:25 Dose: Not Given Docusate Sodium (Colace) 200 mg GT BID [facility] Stop: 05/20/18 10:59 Last Admin: 03/24/18 08:25 Dose: Not Given Ceftriaxone Sodium 1 gm/ (Sodium Chloride) 50 mls @ 100 mls/hr IV Q24H [facility] Stop: 05/19/18 21:59 Last Admin: 03/23/18 23:50 Dose: 100 mls/hr Metronidazole (Flagyl) 500 mg in 100 mls @ 100 mls/hr IV Q8HR [facility] Stop: 05/21/18 12:59 Last Admin: 03/24/18 12:37 Dose: 100 mls/hr Levetiracetam 500 mg/ Sodium (Chloride) 105 mls @ 400 mls/hr IV Q12H [facility] Stop: 05/21/18 22:59 Last Admin: 03/24/18 10:21 Dose: 400 mls/hr Vancomycin HCl 1 gm/ Sodium (Chloride) 250 mls @ 165 mls/hr IV Q12H [facility] Stop: 05/22/18 20:59 Last Admin: 03/24/18 08:25 Dose: 165 mls/hr Dextrose/Sodium Chloride (D5-0.45ns) 1,000 mls @ 10 mls/hr IV .Q24H [facility] Stop: 05/22/18 15:59 Last Admin: 03/23/18 16:34 Dose: 10 mls/hr Multivitamins/Minerals 5 ml/Chromium/Copper/Manganese/Zinc 1 ml/ Sodium Chloride 45 meq/Sodium Phosphate 10 mmole/Calcium Gluconate 1.5 gm/Magnesium Sulfate 8.7 meq/Potassium Chloride 30 meq/Dextrose/ Amino Acids/Electrolytes/ Fat Emulsion Intravenous/ Sterile Water 1,560 mls @ 65 mls/hr IV .Q24H [facility] Stop: 05/22/18 15:59 Insulin Aspart (Novolog Insulin Sliding Scale) 0 units SUBQ Q6H [facility]; Protocol Stop: 04/07/19 15:59 Last Admin: 03/24/18 10:19 Dose: Not Given Lactulose (Cephulac) 10 gm GT DAILY PRN PRN Reason: Constipation Last Admin: 03/22/18 13:47 Dose: 10 gm Magnesium Hydroxide (Milk Of Magnesia) 30 ml GT Q72H PRN PRN Reason: Constipation Stop: 05/20/18 10:48 Metoprolol Tartrate (Lopressor) 12.5 mg GT QPM [facility] Stop: 05/20/18 16:59 Last Admin: 03/23/18 16:48 Dose: Not Given Miscellaneous (Vancomycin Iv Per Pharmacy) 1 ea MC DAILY [facility] Stop: 05/20/18 11:29 Miscellaneous (Ppn Per Pharmacy) 1 ea PRN PRN PRN Reason: PROTOCOL Stop: 05/21/18 14:48 Nystatin (Mycostatin Cream) 1 appl TP DAILY [facility] Stop: 05/22/18 08:59 Last Admin: 03/24/18 08:25 Dose: 1 appl Petrolatum (Zinc Oxide) 1 appl TP HS [facility] Stop: 05/21/18 20:59 Last Admin: 03/23/18 21:07 Dose: 1 appl Potassium Chloride (Klor-Con) 40 meq PO X1 [facility] Stop: 03/24/18 12:42 Sodium Phosphate (Fleet Enema) 135 ml RC Q96H PRN PRN Reason: IF DULCOLAX INEFFECTIVE Stop: 05/20/18 10:46 General: NAD HEENT: NC/AT, PERRLA, EOMI Neck: No JVD, no No thyromegaly Lungs: CTAB Cardiovascular: RRR Abdomen: soft, non-tender, +GT - redness, +GT - discharge Extremities: clear - Procedures Procedures: Procedures Procedure Code Date ASPIR CURETT UTERUS NEC 69.59 06/12/11 CHANGE FEEDING DEVICE IN UP INTEST TRACT, DIMENSION WAREHOUSE SUPERVISOR APPROACH [id number] 01/27/16 CHANGE GASTROSTOMY TUBE 90521 05/21/15 DILATION AND CURETTAGE 14869 06/12/11 EGD BIOPSY SINGLE/MULTIPLE 19447 07/15/16 EXCISION OF STOMACH, ENDO, DIAGN [id number] 07/15/16 INSERTION OF FEEDING DEVICE INTO STOMACH, ENDO [id number] 07/15/16 [facility] PROC ABDM/PER/OMENT 16197 07/29/13 LAPAROSCOP APPENDECTOMY 47.01 06/14/14 LAPAROSCOP LYSIS-PERITONEAL ADHES 54.51 07/29/13 LAPAROSCOPY APPENDECTOMY 91838 07/29/13 REPLACE GASTROSTOMY TUBE 97.02 07/26/14 Internal Medicine Assmt/Plan - Assessment Assessment: 1. GTUBE MALFUNCTION WITH LEAKAGE 2. GT SITE CELLULITIS/DRAINAGE 3. HISTORY OF DYSPHAGIA-PEG PLACEMENT 4. HX OF CONSTIPATION 5. HYPONATREMIA 6. HX OF SEIZURE DISORDER-STABLE 7. HX OF INTELLECTUAL DISABILITY - Plan Plan: CONT WITH CURRENT TX PLAN AND MGT CONT TO WITHHOLD GT FEED FOR NOW CONT WITH TPN CONT WITH IV ABXS, AND LOCAL WOUBD CARE FOLLOW C/S, LABS GI PLAN NOTED Nutritional Asmnt/Malnutr-PDOC - Dietary Evaluation Malnutrition Findings (Please click <Entered> for more info): Nutritional Asmnt/Malnutrition Start: 03/21/18 13: 29 Text: Status: Complete Freq: Protocol: Document 03/21/18 13:29 LCHEBERG (Rec: 03/21/18 13:45 LCHEBERG CHARO-FN) Nutritional Asmnt/Malnutrition Patient General Information Nutritional Screening High Risk Consult Diagnosis displacement of Gtube, Gtube site cellulitis Pertinent Medical Hx/Surgical Hx HTN, PUD?GERD, seizures, hepatitis B and C, developmentally disabled, quadriplegic Subjective Information Consult reiceved for shayna score 11. Pt seen in bed, non verbal noted. Per nurse pt is tolerating current tube feeding. CALEB Rdz asked about TF rate since pt was receiving Jevity 1.5 at custod[facility] and our hospital only carries Jevity 1.2. Current Diet Order/ Nutrition Support Jevity 1.2 at 40ml/hr x 20hr, providing 960kcal and 44g protein Pertinent Medications oscal w/vit D, colace, nacl 0. 9%, vancomycin Pertinent Labs 2/4 Cl 108, Cr 0.4 2/3 Cr 0.4, glucose 109, alb 3 .6 Nutritional Hx/Data Height 1.6 m Height (Calculated Centimeters) 160.0 Current Weight (lbs) 45.359 kg Weight (Calculated Kilograms) 45.4 Weight (Calculated Grams) 90682.2 [place] Body Weight 115 Body Mass Index (BMI) 17.6 Weight Status Underweight GI Symptoms GI Symptoms None Last BM not indicated Usual diet at home Jevity 1.5 at 40ml/hr x 20hr at [facility] Skin Integrity/Comment: cellulitis reddened to Gtube site shayna 11 Estimated Nutritional Goals Calories/Kcals/Kg 25-30 IBW 52kg Kcals Calculated 2470-2780 Protein g/k-1.2 Protein Calculated 52-62 Fluid: ml 1300-1560ml (1ml/kcal) Nutritional Problem 1. Problem Problem inadequate intake from enteral feeding Etiology current TF regimen not meeting nutritional needs Signs/Symptoms: current TF providing 960kcal and 44g protein Malnutrition Related to Morbid Obesity Malnutrition related to morbid obesity No Intervention/Recommendation Comments 1. Recommend to increase TF rate to Jevity 1.2 at 55ml/hr x 20hr. It provides 1320kcal, 61g protein, 888ml free water, meeting 100% of nutritional needs. CALEB Rdz notified. 2. Monitor TF rate, tolerance, wt, skin integrity and labs 3. F/U as high risk in 2-3 days, 2/5-2/6 Expected Outcomes/Goals Expected Outcomes/Goals 1. Pt to meet at least 90% of nutritional needs via nutrition support with tolerance 2. Wt stability, skin to remain intact, labs to approach WNL.
[2018-03-24] MEDS: Ciprofloxacin 200mg Premix PB 200 MG/100 ML BAG IV SCH ×2 (15:24→21:43)
[2018-03-24] MEDS: Zinc Oxide Ointment 60 gm TP SCH (21:17)
[2018-03-24] MEDS: [UNRECOGNIZED DRUG - OTHER] IV SCH (22:44)
[2018-03-24] MEDS: MULTIVITAMIN IV SCH (22:44)
[2018-03-24] MEDS: SODIUM CHLORIDE IV SCH (22:44)
[2018-03-24] MEDS: TRACE ELEMENT IV SCH (22:44)
[2018-03-25] MEDS: D5-0.45NS 1,000 ML IV SCH (01:16)
[2018-03-25 06:27] LABS: ANION GAP 14.5 (7.0-16.0); BUN - UREA NITROGEN 12 mg/dL (7-25); CALCIUM SERUM 8.6 mg/dL (8.6-10.3); CARBON DIOXIDE 24.8 mEq/L (21.0-31.0); CHLORIDE 106 mEq/L (98-107); CREATININE - SERUM 0.4 mg/dL (0.6-1.2); GFR AFRICAN-AMERICAN > 60.0 ml/min (>90); GFR NON AFRICAN-AMERICAN > 60.0 ml/min; GLUCOSE 102 mg/dL (70-105); PHOSPHOROUS 2.2 mg/dL (2.5-5.0); POTASSIUM SERUM 3.3 mEq/L (3.5-5.1); SODIUM SERUM 142 mEq/L (136-145)
[2018-03-25] MEDS: INSULIN ASPART SLIDING SCALE 100 UNITS/ML UNIT SUBQ SCH ×4 (06:44→22:08)
[2018-03-25] MEDS: carBAMazepine 200 mg/10 mL UDC GT SCH ×2 (09:12→21:12)
[2018-03-25] MEDS: Docusate Sodium 100 mg/10 mL UD GT SCH ×2 (09:12→16:31)
--- NOTE | 2018-03-25 09:22 | Internal Medicine Prog Note ---
Internal Medicine Subjective - Subjective Patient is:: awake, non-verbal Per staff patient has:: no adverse event (TPN STARTED) Internal Medicine Objective - Results Result Diagrams: 03/24/18 06:00 03/25/18 04:40 Recent Labs: Laboratory Last Values WBC 7.0 Th/cmm (4.8-10.8) 03/24/18 06:00 RBC 4.08 Mil/cmm (3.80-5.10) 03/24/18 06:00 Hgb 13.4 gm/dL (12-16) 03/24/18 06:00 Hct 40.7 % (41.0-60) L 03/24/18 06:00 MCV 99.8 fl (81-100) 03/24/18 06:00 MCH 32.9 pg (27.0-31.0) H 03/24/18 06:00 MCHC Differential 33.0 pg (28.0-36.0) 03/24/18 06:00 RDW 10.7 % (11.5-20.0) L 03/24/18 06:00 Plt Count 278 Th/cmm (150-400) 03/24/18 06:00 MPV 9.7 fl 03/24/18 06:00 Neutrophils % 60.8 % (40.0-80.0) 03/24/18 06:00 Lymphocytes % 25.6 % (20.0-50.0) 03/24/18 06:00 Monocytes % 9.0 % (2.0-10.0) 03/24/18 06:00 Eosinophils % 3.7 % (0.0-5.0) 03/24/18 06:00 Basophils % 0.9 % (0.0-2.0) 03/24/18 06:00 ESR 41 mm/hr (0-30) H 03/22/18 04:50 Sodium 142 mEq/L (136-145) 03/25/18 04:40 Potassium 3.3 mEq/L (3.5-5.1) L 03/25/18 04:40 Chloride 106 mEq/L (98-107) 03/25/18 04:40 Carbon Dioxide 24.8 mEq/L (21.0-31.0) 03/25/18 04:40 Anion Gap 14.5 (7.0-16.0) 03/25/18 04:40 BUN 12 mg/dL (7-25) 03/25/18 04:40 Creatinine 0.4 mg/dL (0.6-1.2) L 03/25/18 04:40 Est GFR ( Amer) > 60.0 ml/min (>90) 03/25/18 04:40 Est GFR (Non-Af Amer) > 60.0 ml/min 03/25/18 04:40 BUN/Creatinine Ratio 30.0 03/25/18 04:40 Glucose 102 mg/dL (70-105) 03/25/18 04:40 POC Glucose 120 MG/DL (70 - 105) H 03/25/18 06:42 Whole Bld Lactic Acid 1.20 mmol/L (0.60-1.99) 03/20/18 19:15 Calcium 8.6 mg/dL (8.6-10.3) 03/25/18 04:40 Phosphorus 2.2 mg/dL (2.5-5.0) L 03/25/18 04:40 Magnesium 2.0 mg/dL (1.9-2.7) 03/25/18 04:40 Total Bilirubin 0.7 mg/dL (0.3-1.0) 03/20/18 19:15 AST 20 U/L (13-39) 03/20/18 19:15 ALT 25 U/L (7-52) 03/20/18 19:15 Alkaline Phosphatase 93 U/L (34-104) 03/20/18 19:15 C-Reactive Protein < 0.2 mg/dL (0.0-0.9) 03/22/18 04:50 Total Protein 7.3 gm/dL (6.0-8.3) 03/20/18 19:15 Albumin 3.6 gm/dL (3.7-5.3) L 03/20/18 19:15 Globulin 3.7 gm/dL 03/20/18 19:15 Albumin/Globulin Ratio 1.0 (1.0-1.8) 03/20/18 19:15 Prealbumin 13 mg/dL (10-36) 03/22/18 04:50 Triglycerides 60 mg/dL (<150) 03/21/18 04:45 Cholesterol 156 mg/dL (<200) 03/21/18 04:45 LDL Cholesterol Direct 87 mg/dL (75-193) 03/21/18 04:45 HDL Cholesterol 65 mg/dL (23-92) 03/21/18 04:45 TSH 1.11 uIU/ml (0.34-5.60) 03/21/18 04:45 Vancomycin Trough 14.4 ug/mL (5-10) H 03/24/18 20:28 - Physical Exam Vitals and I&O: Vital Signs Temp 98.4 F 03/25/18 04:00 Pulse 70 03/25/18 07:30 Resp 18 03/25/18 07:30 BP 122/78 03/25/18 04:00 Pulse Ox 98 03/25/18 07:30 Intake & Output 03/24/18 03/25/18 03/25/18 18:59 06:59 18:59 Intake Total 605 327 Balance 605 327 Weight (lbs) 45.949 kg Intake: Intake, IV Amount 305 327 Ciprofloxacin 200mg 100 Premix PB 200 mg In 100 ml @ 100 mls/hr IV Q12HR [facility] Rx#:[id number] D5-0.45NS 1,000 ml @ 10 327 mls/hr IV .Q24H [facility] Rx#: [id number] KCL 20mEq/100mL Premix 20 100 meq In 100 ml @ 50 mls/ hr IV Q2H [facility] Rx#: [id number] Levetiracetam 500 mg In 105 Sodium Chloride 0.9% 100 ml @ 400 mls/hr IV Q12H [facility] Rx#:[id number] Oral 0 Tube Feeding 0 TPN/PPN 300 Other: Weight Source Bedscale Active Medications: Current Medications Acetaminophen (Tylenol 650mg/20.3ml Suspension) 650 mg GT Q4HR PRN PRN Reason: Pain Or Fever >100 Stop: 05/20/18 10:46 Albuterol/Ipratropium (Duoneb Neb) 3 ml HHN [id number] PRN PRN Reason: sob Stop: 05/20/18 10:46 Last Admin: 03/23/18 07:16 Dose: 3 ml Bisacodyl (Dulcolax 10 Mg Supp) 10 mg RC Q96H PRN PRN Reason: Constipation Stop: 05/20/18 10:46 Last Admin: 03/22/18 19:42 Dose: 10 mg Carbamazepine (Tegretol) 400 mg GT Q12HR@0900,2100 [facility] Stop: 05/20/18 10:59 Last Admin: 03/25/18 09:12 Dose: Not Given Docusate Sodium (Colace) 200 mg GT BID [facility] Stop: 05/20/18 10:59 Last Admin: 03/25/18 09:12 Dose: Not Given Hydralazine HCl (Apresoline 20 Mg/Ml) 20 mg IV Q6HR PRN PRN Reason: SBP>160 Stop: 05/23/18 13:11 Levetiracetam 500 mg/ Sodium (Chloride) 105 mls @ 400 mls/hr IV Q12H [facility] Stop: 05/21/18 22:59 Last Admin: 03/24/18 23:46 Dose: 400 mls/hr Dextrose/Sodium Chloride (D5-0.45ns) 1,000 mls @ 10 mls/hr IV .Q24H [facility] Stop: 05/22/18 15:59 Last Admin: 03/25/18 01:16 Dose: 10 mls/hr Multivitamins/Minerals 5 ml/Chromium/Copper/Manganese/Zinc 1 ml/ Sodium Chloride 45 meq/Sodium Phosphate 10 mmole/Calcium Gluconate 1.5 gm/Magnesium Sulfate 8.7 meq/Potassium Chloride 30 meq/Dextrose/ Amino Acids/Electrolytes/ Fat Emulsion Intravenous/ Sterile Water 1,560 mls @ 65 mls/hr IV .Q24H [facility] Stop: 05/22/18 15:59 Last Admin: 03/24/18 22:44 Dose: 65 mls/hr Ciprofloxacin (Cipro 200mg Premix Pb) 200 mg in 100 mls @ 100 mls/hr IV Q12HR [facility] Stop: 05/23/18 13:29 Last Admin: 03/24/18 21:43 Dose: 100 mls/hr Insulin Aspart (Novolog Insulin Sliding Scale) 0 units SUBQ Q6H [facility]; Protocol Stop: 05/22/18 15:59 Last Admin: 03/25/18 06:44 Dose: Not Given Lactulose (Cephulac) 10 gm GT DAILY PRN PRN Reason: Constipation Last Admin: 03/22/18 13:47 Dose: 10 gm Magnesium Hydroxide (Milk Of Magnesia) 30 ml GT Q72H PRN PRN Reason: Constipation Stop: 05/20/18 10:48 Metoprolol Tartrate (Lopressor) 12.5 mg GT QPM [facility] Stop: 05/20/18 16:59 Last Admin: 03/24/18 16:35 Dose: Not Given Miscellaneous (Ppn Per Pharmacy) 1 ea MC PRN PRN PRN Reason: PROTOCOL Stop: 05/21/18 14:48 Nystatin (Mycostatin Cream) 1 appl TP DAILY [facility] Stop: 05/22/18 08:59 Last Admin: 03/24/18 08:25 Dose: 1 appl Petrolatum (Zinc Oxide) 1 appl TP HS [facility] Stop: 05/21/18 20:59 Last Admin: 03/24/18 21:17 Dose: 1 appl Sodium Phosphate (Fleet Enema) 135 ml RC Q96H PRN PRN Reason: IF DULCOLAX INEFFECTIVE Stop: 05/20/18 10:46 General: NAD HEENT: NC/AT, PERRLA, EOMI Neck: No JVD, no No thyromegaly Lungs: CTAB Cardiovascular: RRR Abdomen: soft, non-tender, +GT - redness, +GT - discharge Extremities: clear - Procedures Procedures: Procedures Procedure Code Date ASPIR CURETT UTERUS NEC 69.59 06/12/11 CHANGE FEEDING DEVICE IN UP INTEST TRACT, PUMP TESTER APPROACH [id number] 01/27/16 CHANGE GASTROSTOMY TUBE 57255 05/21/15 DILATION AND CURETTAGE 18573 06/12/11 EGD BIOPSY SINGLE/MULTIPLE 22613 07/15/16 EXCISION OF STOMACH, ENDO, DIAGN [id number] 07/15/16 INSERTION OF FEEDING DEVICE INTO STOMACH, ENDO [id number] 07/15/16 [facility] PROC ABDM/PER/OMENT 68688 07/29/13 LAPAROSCOP APPENDECTOMY 47.01 07/29/13 LAPAROSCOP LYSIS-PERITONEAL ADHES 54.51 07/29/13 LAPAROSCOPY APPENDECTOMY 18798 07/29/13 REPLACE GASTROSTOMY TUBE 97.02 07/26/14 Internal Medicine Assmt/Plan - Assessment Assessment: 1. GTUBE MALFUNCTION WITH LEAKAGE 2. GT SITE CELLULITIS/DRAINAGE 3. HISTORY OF DYSPHAGIA-PEG PLACEMENT 4. HX OF CONSTIPATION 5. HYPONATREMIA--RESOLVED 6. HX OF SEIZURE DISORDER-STABLE 7. HX OF INTELLECTUAL DISABILITY - Plan Plan: CONT WITH CURRENT TX PLAN AND MGT CONT TO HOLD GT FEEDS FOR NOW CONT WITH PPN CONT WITH IV ABXS, AND LOCAL WOUBD CARE FOLLOW C/S, LABS GI PLAN NOTED Nutritional Asmnt/Malnutr-PDOC - Dietary Evaluation Malnutrition Findings (Please click <Entered> for more info): Nutritional Asmnt/Malnutrition Start: 03/21/18 13: 29 Text: Status: Complete Freq: Protocol: Document 03/21/18 13:29 LCHENG (Rec: 03/21/18 13:45 [email or web address] [email or web address]) Nutritional Asmnt/Malnutrition Patient General Information Nutritional Screening High Risk Consult Diagnosis displacement of Gtube, Gtube site cellulitis Pertinent Medical Hx/Surgical Hx HTN, PUD?GERD, seizures, hepatitis B and C, developmentally disabled, quadriplegic Subjective Information Consult reiceved for shayna score 11. Pt seen in bed, non verbal noted. Per nurse pt is tolerating current tube feeding. CALEB Rdz asked about TF rate since pt was receiving Jevity 1.5 at long term and our hospital only carries Jevity 1.2. Current Diet Order/ Nutrition Support Jevity 1.2 at 40ml/hr x 20hr, providing 960kcal and 44g protein Pertinent Medications oscal w/vit D, colace, nacl 0. 9%, vancomycin Pertinent Labs 2/4 Cl 108, Cr 0.4 2/3 Cr 0.4, glucose 109, alb 3 .6 Nutritional Hx/Data Height 1.6 m Height (Calculated Centimeters) 160.0 Current Weight (lbs) 45.359 kg Weight (Calculated Kilograms) 45.4 Weight (Calculated Grams) 51407.2 [place] Body Weight 115 Body Mass Index (BMI) 17.6 Weight Status Underweight GI Symptoms GI Symptoms None Last BM not indicated Usual diet at home Jevity 1.5 at 40ml/hr x 20hr at [facility] Skin Integrity/Comment: cellulitis reddened to Gtube site shayna 11 Estimated Nutritional Goals Calories/Kcals/Kg 25-30 IBW 52kg Kcals Calculated 7117-7742 Protein g/k-1.2 Protein Calculated 52-62 Fluid: ml 1300-1560ml (1ml/kcal) Nutritional Problem 1. Problem Problem inadequate intake from enteral feeding Etiology current TF regimen not meeting nutritional needs Signs/Symptoms: current TF providing 960kcal and 44g protein Malnutrition Related to Morbid Obesity Malnutrition related to morbid obesity No Intervention/Recommendation Comments 1. Recommend to increase TF rate to Jevity 1.2 at 55ml/hr x 20hr. It provides 1320kcal, 61g protein, 888ml free water, meeting 100% of nutritional needs. CALEB Rdz notified. 2. Monitor TF rate, tolerance, wt, skin integrity and labs 3. F/U as high risk in 2-3 days, 2/-2/ Expected Outcomes/Goals Expected Outcomes/Goals 1. Pt to meet at least 90% of nutritional needs via nutrition support with tolerance 2. Wt stability, skin to remain intact, labs to approach WNL.
[2018-03-25] MEDS: MULTIVITAMIN IV SCH (09:24)
[2018-03-25] MEDS: [UNRECOGNIZED DRUG - OTHER] IV SCH (09:24)
[2018-03-25] MEDS: SODIUM CHLORIDE IV SCH (09:24)
[2018-03-25] MEDS: TRACE ELEMENT IV SCH (09:24)
[2018-03-25] MEDS: Nystatin Cream 100,000 u/gm Cream 15 gm TP SCH (09:27)
[2018-03-25] MEDS ORDERED: KCL 20mEq/100mL Premix 20 MEQ/100 ML PIGGYBACK IV SCH (09:30)
[2018-03-25] MEDS ORDERED: Potassium Phosphate 30 MMOLE in Sodium Chloride 0.9% 250 ML IV ONE (09:30)
--- NOTE | 2018-03-25 09:51 | GI Progress Note ---
Subjective - Review of Systems Service Date: 03/25/18 Subjective: G tube site looks worse today, leakage around the tube Objective - Results Result Diagrams: 03/24/18 06:00 03/25/18 04:40 Recent Labs: Laboratory Last Values WBC 7.0 Th/cmm (4.8-10.8) 03/24/18 06:00 RBC 4.08 Mil/cmm (3.80-5.10) 03/24/18 06:00 Hgb 13.4 gm/dL (12-16) 03/24/18 06:00 Hct 40.7 % (41.0-60) L 03/24/18 06:00 MCV 99.8 fl (81-100) 03/24/18 06:00 MCH 32.9 pg (27.0-31.0) H 03/24/18 06:00 MCHC Differential 33.0 pg (28.0-36.0) 03/24/18 06:00 RDW 10.7 % (11.5-20.0) L 03/24/18 06:00 Plt Count 278 Th/cmm (150-400) 03/24/18 06:00 MPV 9.7 fl 03/24/18 06:00 Neutrophils % 60.8 % (40.0-80.0) 03/24/18 06:00 Lymphocytes % 25.6 % (20.0-50.0) 03/24/18 06:00 Monocytes % 9.0 % (2.0-10.0) 03/24/18 06:00 Eosinophils % 3.7 % (0.0-5.0) 03/24/18 06:00 Basophils % 0.9 % (0.0-2.0) 03/24/18 06:00 ESR 41 mm/hr (0-30) H 03/22/18 04:50 Sodium 142 mEq/L (136-145) 03/25/18 04:40 Potassium 3.3 mEq/L (3.5-5.1) L 03/25/18 04:40 Chloride 106 mEq/L (98-107) 03/25/18 04:40 Carbon Dioxide 24.8 mEq/L (21.0-31.0) 03/25/18 04:40 Anion Gap 14.5 (7.0-16.0) 03/25/18 04:40 BUN 12 mg/dL (7-25) 03/25/18 04:40 Creatinine 0.4 mg/dL (0.6-1.2) L 03/25/18 04:40 Est GFR ( Amer) > 60.0 ml/min (>90) 03/25/18 04:40 Est GFR (Non-Af Amer) > 60.0 ml/min 03/25/18 04:40 BUN/Creatinine Ratio 30.0 03/25/18 04:40 Glucose 102 mg/dL (70-105) 03/25/18 04:40 POC Glucose 128 MG/DL (70 - 105) H 03/25/18 09:17 Whole Bld Lactic Acid 1.20 mmol/L (0.60-1.99) 03/20/18 19:15 Calcium 8.6 mg/dL (8.6-10.3) 03/25/18 04:40 Phosphorus 2.2 mg/dL (2.5-5.0) L 03/25/18 04:40 Magnesium 2.0 mg/dL (1.9-2.7) 03/25/18 04:40 Total Bilirubin 0.7 mg/dL (0.3-1.0) 03/20/18 19:15 AST 20 U/L (13-39) 03/20/18 19:15 ALT 25 U/L (7-52) 03/20/18 19:15 Alkaline Phosphatase 93 U/L (34-104) 03/20/18 19:15 C-Reactive Protein < 0.2 mg/dL (0.0-0.9) 03/22/18 04:50 Total Protein 7.3 gm/dL (6.0-8.3) 03/20/18 19:15 Albumin 3.6 gm/dL (3.7-5.3) L 03/20/18 19:15 Globulin 3.7 gm/dL 03/20/18 19:15 Albumin/Globulin Ratio 1.0 (1.0-1.8) 03/20/18 19:15 Prealbumin 13 mg/dL (10-36) 03/22/18 04:50 Triglycerides 60 mg/dL (<150) 03/21/18 04:45 Cholesterol 156 mg/dL (<200) 03/21/18 04:45 LDL Cholesterol Direct 87 mg/dL (75-193) 03/21/18 04:45 HDL Cholesterol 65 mg/dL (23-92) 03/21/18 04:45 TSH 1.11 uIU/ml (0.34-5.60) 03/21/18 04:45 Vancomycin Trough 14.4 ug/mL (5-10) H 03/24/18 20:28 - Physical Exam Vitals and I&O: Vital Signs Temp 98.4 F 03/25/18 04:00 Pulse 70 03/25/18 07:30 Resp 18 03/25/18 07:30 BP 122/78 03/25/18 04:00 Pulse Ox 98 03/25/18 07:30 Intake & Output 03/24/18 03/25/18 03/25/18 18:59 06:59 18:59 Intake Total 605 327 693.333 Balance 605 327 693.333 Weight (lbs) 45.949 kg Intake: Intake, IV Amount 305 327 693.333 Ciprofloxacin 200mg 100 Premix PB 200 mg In 100 ml @ 100 mls/hr IV Q12HR [facility] Rx#:[id number] D5-0.45NS 1,000 ml @ 10 327 mls/hr IV .Q24H [facility] Rx#: [id number] KCL 20mEq/100mL Premix 20 100 meq In 100 ml @ 50 mls/ hr IV Q2H [facility] Rx#: [id number] Levetiracetam 500 mg In 105 Sodium Chloride 0.9% 100 ml @ 400 mls/hr IV Q12H [facility] Rx#:[id number] Multivitamin Inj 5 ml 693.333 Trace Element 1 ml Sodium Chloride 45 meq Sodium Phosphate 10 mmole Calcium Gluconate 1.5 gm Magnesium Sulfate 8.7 meq Potassium Chloride 30 meq In Dextrose 70% 207. 2739 ml In Amino Acids 8. 5% 600 ml In Intralipids 20% 200 ml In Water, Sterile 500 ml @ 65 mls/ hr IV .Q24H [facility] Rx#: [id number] Oral 0 Tube Feeding 0 TPN/PPN 300 Other: Weight Source Bedscale Active Medications: Current Medications Acetaminophen (Tylenol 650mg/20.3ml Suspension) 650 mg GT Q4HR PRN PRN Reason: Pain Or Fever >100 Stop: 05/20/18 10:46 Albuterol/Ipratropium (Duoneb Neb) 3 ml HHN [id number] PRN PRN Reason: sob Stop: 05/20/18 10:46 Last Admin: 03/23/18 07:16 Dose: 3 ml Bisacodyl (Dulcolax 10 Mg Supp) 10 mg RC Q96H PRN PRN Reason: Constipation Stop: 05/20/18 10:46 Last Admin: 03/22/18 19:42 Dose: 10 mg Carbamazepine (Tegretol) 400 mg GT Q12HR@0900,2100 [facility] Stop: 05/20/18 10:59 Last Admin: 03/25/18 09:12 Dose: Not Given Docusate Sodium (Colace) 200 mg GT BID [facility] Stop: 05/20/18 10:59 Last Admin: 03/25/18 09:12 Dose: Not Given Hydralazine HCl (Apresoline 20 Mg/Ml) 20 mg IV Q6HR PRN PRN Reason: SBP>160 Stop: 05/23/18 13:11 Levetiracetam 500 mg/ Sodium (Chloride) 105 mls @ 400 mls/hr IV Q12H [facility] Stop: 05/21/18 22:59 Last Admin: 03/24/18 23:46 Dose: 400 mls/hr Multivitamins/Minerals 5 ml/Chromium/Copper/Manganese/Zinc 1 ml/ Sodium Chloride 45 meq/Sodium Phosphate 10 mmole/Calcium Gluconate 1.5 gm/Magnesium Sulfate 8.7 meq/Potassium Chloride 30 meq/Dextrose/ Amino Acids/Electrolytes/ Fat Emulsion Intravenous/ Sterile Water 1,560 mls @ 65 mls/hr IV .Q24H [facility] Stop: 03/25/18 16:00 Last Admin: 03/25/18 09:24 Dose: 65 mls/hr Ciprofloxacin (Cipro 200mg Premix Pb) 200 mg in 100 mls @ 100 mls/hr IV Q12HR [facility] Stop: 05/23/18 13:29 Last Admin: 03/24/18 21:43 Dose: 100 mls/hr Multivitamins/Minerals 10 ml/Dextrose/ Amino Acids/Electrolytes/ Sterile Water 1,810 mls @ 75 mls/hr IV .Q24H [facility] Stop: 04/23/18 15:59 Potassium Phosphate 30 mmole/ (Sodium Chloride) 260 mls @ 42.5 mls/hr IV X1 ONE Stop: 03/25/18 15:37 Insulin Aspart (Novolog Insulin Sliding Scale) 0 units SUBQ Q6H [facility]; Protocol Stop: 05/22/18 15:59 Last Admin: 03/25/18 09:26 Dose: Not Given Lactulose (Cephulac) 10 gm GT DAILY PRN PRN Reason: Constipation Last Admin: 03/22/18 13:47 Dose: 10 gm Magnesium Hydroxide (Milk Of Magnesia) 30 ml GT Q72H PRN PRN Reason: Constipation Stop: 05/20/18 10:48 Metoprolol Tartrate (Lopressor) 12.5 mg GT QPM [facility] Stop: 05/20/18 16:59 Last Admin: 03/24/18 16:35 Dose: Not Given Miscellaneous (Ppn Per Pharmacy) 1 ea MC PRN PRN PRN Reason: PROTOCOL Stop: 05/21/18 14:48 Nystatin (Mycostatin Cream) 1 appl TP DAILY [facility] Stop: 05/22/18 08:59 Last Admin: 03/25/18 09:27 Dose: 1 appl Petrolatum (Zinc Oxide) 1 appl TP HS [facility] Stop: 05/21/18 20:59 Last Admin: 03/24/18 21:17 Dose: 1 appl Sodium Phosphate (Fleet Enema) 135 ml RC Q96H PRN PRN Reason: IF DULCOLAX INEFFECTIVE Stop: 05/20/18 10:46 General: Alert HEENT: Atraumatic Neck: Supple Cardiovascular: Regular rate Abdomen: Bowel sounds, Other (g tube site with ring of erythema, drainage coming from around the tube), no Soft, no Tender, no Hepatomegaly, no Splenomegaly, no Distended, no Rebound, no Mass Skin: Rash - Procedures Procedures: Procedures Procedure Code Date ASPIR CURETT UTERUS NEC 69.59 06/12/11 CHANGE FEEDING DEVICE IN UP INTEST TRACT, SEATING CAPTAIN APPROACH [id number] 01/27/16 CHANGE GASTROSTOMY TUBE 46884 05/21/15 DILATION AND CURETTAGE 23101 06/12/11 EGD BIOPSY SINGLE/MULTIPLE 22321 07/15/16 EXCISION OF STOMACH, ENDO, DIAGN [id number] 07/15/16 INSERTION OF FEEDING DEVICE INTO STOMACH, ENDO [id number] 05/31/17 [facility] PROC ABDM/PER/OMENT 85780 07/29/13 LAPAROSCOP APPENDECTOMY 47.01 07/29/13 LAPAROSCOP LYSIS-PERITONEAL ADHES 54.51 07/29/13 LAPAROSCOPY APPENDECTOMY 15801 07/29/13 REPLACE GASTROSTOMY TUBE 97.02 07/26/14 Assessment/Plan - Assessment Assessment: # G tube site cellulitis # Dysphagia # Developmental delay As of 03/25, the site looked worse thus the G tube was pulled. Will need to wait for the area to heal prior to inserting a new one Plan: - can likely insert NG tube in a few days for feeding. Until then, PPN - new G tube will be inserted after the site heals. This can take up to 2 weeks - wound care consult - nystatin and zinc cream orderd - cont abx
[2018-03-25] MEDS: Ciprofloxacin 200mg Premix PB 200 MG/100 ML BAG IV SCH ×2 (09:56→21:02)
[2018-03-25] MEDS: PPN IV SCH (15:47)
[2018-03-25] MEDS ORDERED: Probiotic Screen MC PRN (17:11)
[2018-03-25] MEDS: Albuterol/Ipratropium Neb 3 ML AERS HHN PRN (20:04)
[2018-03-25] MEDS: Zinc Oxide Ointment 60 gm TP SCH (21:06)
[2018-03-26] MEDS: INSULIN ASPART SLIDING SCALE 100 UNITS/ML UNIT SUBQ SCH ×4 (04:19→22:54)
[2018-03-26 06:56] LABS: ANION GAP 14.1 (7.0-16.0); BUN - UREA NITROGEN 15 mg/dL (7-25); CALCIUM SERUM 8.3 mg/dL (8.6-10.3); CARBON DIOXIDE 23.6 mEq/L (21.0-31.0); CHLORIDE 106 mEq/L (98-107); CREATININE - SERUM 0.4 mg/dL (0.6-1.2); GFR AFRICAN-AMERICAN > 60.0 ml/min (>90); GFR NON AFRICAN-AMERICAN > 60.0 ml/min; GLUCOSE 142 mg/dL (70-105); MAGNESIUM 1.9 mg/dL (1.9-2.7); PHOSPHOROUS 2.8 mg/dL (2.5-5.0); POTASSIUM SERUM 3.7 mEq/L (3.5-5.1); SODIUM SERUM 140 mEq/L (136-145)
[2018-03-26] MEDS: Lactobacillus Rhamnosus GG 15 Billion CFU CAP.SPRINK PO SCH (08:02)
[2018-03-26] MEDS: carBAMazepine 200 mg/10 mL UDC GT SCH ×2 (08:02→21:25)
[2018-03-26] MEDS: Docusate Sodium 100 mg/10 mL UD GT SCH ×2 (08:02→16:35)
[2018-03-26] MEDS: Ciprofloxacin 200mg Premix PB 200 MG/100 ML BAG IV SCH ×2 (08:33→21:29)
[2018-03-26] MEDS: Nystatin Cream 100,000 u/gm Cream 15 gm TP SCH (08:33)
--- NOTE | 2018-03-26 14:07 | General Progress Note ---
Subjective - Review of Systems Service Date: 03/26/18 Subjective: alert, nonverbal Objective - Results Result Diagrams: 03/24/18 06:00 03/26/18 05:05 Recent Labs: Laboratory Last Values WBC 7.0 Th/cmm (4.8-10.8) 03/24/18 06:00 RBC 4.08 Mil/cmm (3.80-5.10) 03/24/18 06:00 Hgb 13.4 gm/dL (12-16) 03/24/18 06:00 Hct 40.7 % (41.0-60) L 03/24/18 06:00 MCV 99.8 fl (81-100) 03/24/18 06:00 MCH 32.9 pg (27.0-31.0) H 03/24/18 06:00 MCHC Differential 33.0 pg (28.0-36.0) 03/24/18 06:00 RDW 10.7 % (11.5-20.0) L 03/24/18 06:00 Plt Count 278 Th/cmm (150-400) 03/24/18 06:00 MPV 9.7 fl 03/24/18 06:00 Neutrophils % 60.8 % (40.0-80.0) 03/24/18 06:00 Lymphocytes % 25.6 % (20.0-50.0) 03/24/18 06:00 Monocytes % 9.0 % (2.0-10.0) 03/24/18 06:00 Eosinophils % 3.7 % (0.0-5.0) 03/24/18 06:00 Basophils % 0.9 % (0.0-2.0) 03/24/18 06:00 ESR 41 mm/hr (0-30) H 03/22/18 04:50 Sodium 140 mEq/L (136-145) 03/26/18 05:05 Potassium 3.7 mEq/L (3.5-5.1) 03/26/18 05:05 Chloride 106 mEq/L (98-107) 03/26/18 05:05 Carbon Dioxide 23.6 mEq/L (21.0-31.0) 03/26/18 05:05 Anion Gap 14.1 (7.0-16.0) 03/26/18 05:05 BUN 15 mg/dL (7-25) 03/26/18 05:05 Creatinine 0.4 mg/dL (0.6-1.2) L 03/26/18 05:05 Est GFR ( Amer) > 60.0 ml/min (>90) 03/26/18 05:05 Est GFR (Non-Af Amer) > 60.0 ml/min 03/26/18 05:05 BUN/Creatinine Ratio 37.5 03/26/18 05:05 Glucose 142 mg/dL (70-105) H 03/26/18 05:05 POC Glucose 125 MG/DL (70 - 105) H 03/26/18 09:15 Whole Bld Lactic Acid 1.20 mmol/L (0.60-1.99) 03/20/18 19:15 Calcium 8.3 mg/dL (8.6-10.3) L 03/26/18 05:05 Phosphorus 2.8 mg/dL (2.5-5.0) 03/26/18 05:05 Magnesium 1.9 mg/dL (1.9-2.7) 03/26/18 05:05 Total Bilirubin 0.7 mg/dL (0.3-1.0) 03/20/18 19:15 AST 20 U/L (13-39) 03/20/18 19:15 ALT 25 U/L (7-52) 03/20/18 19:15 Alkaline Phosphatase 93 U/L (34-104) 03/20/18 19:15 C-Reactive Protein < 0.2 mg/dL (0.0-0.9) 03/22/18 04:50 Total Protein 7.3 gm/dL (6.0-8.3) 03/20/18 19:15 Albumin 3.6 gm/dL (3.7-5.3) L 03/20/18 19:15 Globulin 3.7 gm/dL 03/20/18 19:15 Albumin/Globulin Ratio 1.0 (1.0-1.8) 03/20/18 19:15 Prealbumin 13 mg/dL (10-36) 03/22/18 04:50 Triglycerides 60 mg/dL (<150) 03/21/18 04:45 Cholesterol 156 mg/dL (<200) 03/21/18 04:45 LDL Cholesterol Direct 87 mg/dL (75-193) 03/21/18 04:45 HDL Cholesterol 65 mg/dL (23-92) 03/21/18 04:45 TSH 1.11 uIU/ml (0.34-5.60) 03/21/18 04:45 Vancomycin Trough 14.4 ug/mL (5-10) H 03/24/18 20:28 - Physical Exam Vitals and I&O: Vital Signs Temp 96.6 F 03/26/18 12:25 Pulse 60 03/26/18 12:25 Resp 18 03/26/18 12:25 BP 121/69 03/26/18 12:25 Pulse Ox 99 03/26/18 12:25 Intake & Output 03/25/18 03/26/18 03/26/18 18:59 06:59 18:59 Intake Total 1598.333 205 Balance 1598.333 205 Weight (lbs) 46.266 kg Intake: Intake, IV Amount 898.333 205 Ciprofloxacin 200mg 100 100 Premix PB 200 mg In 100 ml @ 100 mls/hr IV Q12HR [facility] Rx#:[id number] Levetiracetam 500 mg In 105 105 Sodium Chloride 0.9% 100 ml @ 400 mls/hr IV Q12H [facility] Rx#:[id number] Multivitamin Inj 5 ml 693.333 Trace Element 1 ml Sodium Chloride 45 meq Sodium Phosphate 10 mmole Calcium Gluconate 1.5 gm Magnesium Sulfate 8.7 meq Potassium Chloride 30 meq In Dextrose 70% 207. 2739 ml In Amino Acids 8. 5% 600 ml In Intralipids 20% 200 ml In Water, Sterile 500 ml @ 65 mls/ hr IV .Q24H [facility] Rx#: [id number] TPN/PPN 700 Other: # Voids 3 # Bowel Movements 0 Weight Source Bedscale Active Medications: Current Medications Acetaminophen (Tylenol 650mg/20.3ml Suspension) 650 mg GT Q4HR PRN PRN Reason: Pain Or Fever >100 Stop: 05/20/18 10:46 Albuterol/Ipratropium (Duoneb Neb) 3 ml HHN [id number] PRN PRN Reason: sob Stop: 05/20/18 10:46 Last Admin: 03/25/18 20:04 Dose: 3 ml Bisacodyl (Dulcolax 10 Mg Supp) 10 mg RC Q96H PRN PRN Reason: Constipation Stop: 05/20/18 10:46 Last Admin: 03/22/18 19:42 Dose: 10 mg Carbamazepine (Tegretol) 400 mg GT Q12HR@0900,2100 [facility] Stop: 05/20/18 10:59 Last Admin: 03/26/18 08:02 Dose: Not Given Docusate Sodium (Colace) 200 mg GT BID [facility] Stop: 05/20/18 10:59 Last Admin: 03/26/18 08:02 Dose: Not Given Hydralazine HCl (Apresoline 20 Mg/Ml) 20 mg IV Q6HR PRN PRN Reason: SBP>160 Stop: 05/23/18 13:11 Levetiracetam 500 mg/ Sodium (Chloride) 105 mls @ 400 mls/hr IV Q12H [facility] Stop: 05/21/18 22:59 Last Admin: 03/26/18 10:16 Dose: 400 mls/hr Ciprofloxacin (Cipro 200mg Premix Pb) 200 mg in 100 mls @ 100 mls/hr IV Q12HR [facility] Stop: 05/23/18 13:29 Last Admin: 03/26/18 08:33 Dose: 100 mls/hr Multivitamins/Minerals 10 ml/Dextrose/ Amino Acids/Electrolytes/ Sterile Water 1,810 mls @ 75 mls/hr IV .Q24H [facility] Stop: 04/23/18 15:59 Last Admin: 03/25/18 15:47 Dose: 75 mls/hr Insulin Aspart (Novolog Insulin Sliding Scale) 0 units SUBQ Q6H [facility]; Protocol Stop: 05/22/18 15:59 Last Admin: 03/26/18 09:22 Dose: Not Given Lactobacillus Rhamnosus (Culturelle 15b) 1 each PO DAILY [facility] Stop: 05/25/18 08:59 Last Admin: 03/26/18 08:02 Dose: Not Given Lactulose (Cephulac) 10 gm GT DAILY PRN PRN Reason: Constipation Last Admin: 03/22/18 13:47 Dose: 10 gm Magnesium Hydroxide (Milk Of Magnesia) 30 ml GT Q72H PRN PRN Reason: Constipation Stop: 05/20/18 10:48 Metoprolol Tartrate (Lopressor) 12.5 mg GT QPM [facility] Stop: 05/20/18 16:59 Last Admin: 03/25/18 16:31 Dose: Not Given Miscellaneous (Ppn Per Pharmacy) 1 ea [facility] PRN PRN PRN Reason: PROTOCOL Stop: 05/21/18 14:48 Miscellaneous (Probiotic Screen) 1 ea [facility] PRN PRN PRN Reason: PROTOCOL Stop: 05/24/18 17:10 Nystatin (Mycostatin Cream) 1 appl TP DAILY [facility] Stop: 05/22/18 08:59 Last Admin: 03/26/18 08:33 Dose: 1 appl Petrolatum (Zinc Oxide) 1 appl TP HS [facility] Stop: 05/21/18 20:59 Last Admin: 03/25/18 21:06 Dose: 1 appl Sodium Phosphate (Fleet Enema) 135 ml RC Q96H PRN PRN Reason: IF DULCOLAX INEFFECTIVE Stop: 05/20/18 10:46 General: Alert, No acute distress HEENT: Atraumatic, Mucous membr. moist/pink Neck: Supple, +2 carotid pulse wo bruit Cardiovascular: Regular rate, Normal S1, Normal S2 Lungs: Clear to auscultation Abdomen: Bowel sounds, Soft, Other (g tube site with ring of erythema, drainage coming from around the tube) Extremities: no Edema Neurological: Sensation intact Skin: Rash Psych/Mental Status: Mood NL - Procedures Procedures: Procedures Procedure Code Date ASPIR CURETT UTERUS NEC 69.59 06/12/11 CHANGE FEEDING DEVICE IN UP INTEST TRACT, TRAVEL RN OR APPROACH [id number] 01/27/16 CHANGE GASTROSTOMY TUBE 07537 05/21/15 DILATION AND CURETTAGE 08791 06/12/11 EGD BIOPSY SINGLE/MULTIPLE 83138 07/15/16 EXCISION OF STOMACH, ENDO, DIAGN [id number] 07/15/16 INSERTION OF FEEDING DEVICE INTO STOMACH, ENDO [id number] 07/15/16 [facility] PROC ABDM/PER/OMENT 17063 07/29/13 LAPAROSCOP APPENDECTOMY 47.01 07/29/13 LAPAROSCOP LYSIS-PERITONEAL ADHES 54.51 07/29/13 LAPAROSCOPY APPENDECTOMY 36018 07/29/13 REPLACE GASTROSTOMY TUBE 97.02 07/26/14 Assessment/Plan - Assessment Assessment: GT site malfunc w/ leakage GT site Cellulitis Hyponatremia resolved Constipation Epilepsy Intellectual Disability - Plan Plan: Lab - Result Diagrams 03/24/18 06:00 03/26/18 05:05 Current Medications Acetaminophen (Tylenol 650mg/20.3ml Suspension) 650 mg GT Q4HR PRN PRN Reason: Pain Or Fever >100 Stop: 05/20/18 10:46 Albuterol/Ipratropium (Duoneb Neb) 3 ml HHN [id number] PRN PRN Reason: sob Stop: 05/20/18 10:46 Last Admin: 03/25/18 20:04 Dose: 3 ml Bisacodyl (Dulcolax 10 Mg Supp) 10 mg RC Q96H PRN PRN Reason: Constipation Stop: 05/20/18 10:46 Last Admin: 03/22/18 19:42 Dose: 10 mg Carbamazepine (Tegretol) 400 mg GT Q12HR@0900,2100 [facility] Stop: 05/20/18 10:59 Last Admin: 03/26/18 08:02 Dose: Not Given Docusate Sodium (Colace) 200 mg GT BID [facility] Stop: 05/20/18 10:59 Last Admin: 03/26/18 08:02 Dose: Not Given Hydralazine HCl (Apresoline 20 Mg/Ml) 20 mg IV Q6HR PRN PRN Reason: SBP>160 Stop: 05/23/18 13:11 Levetiracetam 500 mg/ Sodium (Chloride) 105 mls @ 400 mls/hr IV Q12H [facility] Stop: 05/21/18 22:59 Last Admin: 03/26/18 10:16 Dose: 400 mls/hr Ciprofloxacin (Cipro 200mg Premix Pb) 200 mg in 100 mls @ 100 mls/hr IV Q12HR [facility] Stop: 05/23/18 13:29 Last Admin: 03/26/18 08:33 Dose: 100 mls/hr Multivitamins/Minerals 10 ml/Dextrose/ Amino Acids/Electrolytes/ Sterile Water 1,810 mls @ 75 mls/hr IV .Q24H [facility] Stop: 04/23/18 15:59 Last Admin: 03/25/18 15:47 Dose: 75 mls/hr Insulin Aspart (Novolog Insulin Sliding Scale) 0 units SUBQ Q6H [facility]; Protocol Stop: 05/22/18 15:59 Last Admin: 03/26/18 09:22 Dose: Not Given Lactobacillus Rhamnosus (Culturelle 15b) 1 each PO DAILY [facility] Stop: 05/25/18 08:59 Last Admin: 03/26/18 08:02 Dose: Not Given Lactulose (Cephulac) 10 gm GT DAILY PRN PRN Reason: Constipation Last Admin: 03/22/18 13:47 Dose: 10 gm Magnesium Hydroxide (Milk Of Magnesia) 30 ml GT Q72H PRN PRN Reason: Constipation Stop: 05/20/18 10:48 Metoprolol Tartrate (Lopressor) 12.5 mg GT QPM [facility] Stop: 05/20/18 16:59 Last Admin: 03/25/18 16:31 Dose: Not Given Miscellaneous (Ppn Per Pharmacy) 1 ea PRN PRN PRN Reason: PROTOCOL Stop: 05/21/18 14:48 Miscellaneous (Probiotic Screen) 1 ea [facility] PRN PRN PRN Reason: PROTOCOL Stop: 05/24/18 17:10 Nystatin (Mycostatin Cream) 1 appl TP DAILY [facility] Stop: 05/22/18 08:59 Last Admin: 03/26/18 08:33 Dose: 1 appl Petrolatum (Zinc Oxide) 1 appl TP HS [facility] Stop: 05/21/18 20:59 Last Admin: 03/25/18 21:06 Dose: 1 appl Sodium Phosphate (Fleet Enema) 135 ml RC Q96H PRN PRN Reason: IF DULCOLAX INEFFECTIVE Stop: 05/20/18 10:46 Lab - Result Diagrams 03/24/18 06:00 03/26/18 05:05 continue PPN @ 40 ml/hr maintain on Cipro monitor for fever Nutritional Asmnt/Malnutr-PDOC - Dietary Evaluation Malnutrition Findings (Please click <Entered> for more info): Nutritional Asmnt/Malnutrition Start: 03/21/18 13: 29 Text: Status: Complete Freq: Protocol: Document 03/21/18 13:29 JONY (Rec: 03/21/18 13:45 JONY [email or web address]) Nutritional Asmnt/Malnutrition Patient General Information Nutritional Screening High Risk Consult Diagnosis displacement of Gtube, Gtube site cellulitis Pertinent Medical Hx/Surgical Hx HTN, PUD?GERD, seizures, hepatitis B and C, developmentally disabled, quadriplegic Subjective Information Consult reiceved for shayna score 11. Pt seen in bed, non verbal noted. Per nurse pt is tolerating current tube feeding. CALEB Rdz asked about TF rate since pt was receiving Jevity 1.5 at skilled nursing and our hospital only carries Jevity 1.2. Current Diet Order/ Nutrition Support Jevity 1.2 at 40ml/hr x 20hr, providing 960kcal and 44g protein Pertinent Medications oscal w/vit D, colace, nacl 0. 9%, vancomycin Pertinent Labs 2/4 Cl 108, Cr 0.4 2/3 Cr 0.4, glucose 109, alb 3 .6 Nutritional Hx/Data Height 1.6 m Height (Calculated Centimeters) 160.0 Current Weight (lbs) 45.359 kg Weight (Calculated Kilograms) 45.4 Weight (Calculated Grams) 56777.2 [place] Body Weight 115 Body Mass Index (BMI) 17.6 Weight Status Underweight GI Symptoms GI Symptoms None Last BM not indicated Usual diet at home Jevity 1.5 at 40ml/hr x 20hr at [facility] Skin Integrity/Comment: cellulitis reddened to Gtube site shayna 11 Estimated Nutritional Goals Calories/Kcals/Kg 25-30 IBW 52kg Kcals Calculated 0190-0911 Protein g/k-1.2 Protein Calculated 52-62 Fluid: ml 1300-1560ml (1ml/kcal) Nutritional Problem 1. Problem Problem inadequate intake from enteral feeding Etiology current TF regimen not meeting nutritional needs Signs/Symptoms: current TF providing 960kcal and 44g protein Malnutrition Related to Morbid Obesity Malnutrition related to morbid obesity No Intervention/Recommendation Comments 1. Recommend to increase TF rate to Jevity 1.2 at 55ml/hr x 20hr. It provides 1320kcal, 61g protein, 888ml free water, meeting 100% of nutritional needs. CALEB Rdz notified. 2. Monitor TF rate, tolerance, wt, skin integrity and labs 3. F/U as high risk in 2-3 days, 2/5-2/6 Expected Outcomes/Goals Expected Outcomes/Goals 1. Pt to meet at least 90% of nutritional needs via nutrition support with tolerance 2. Wt stability, skin to remain intact, labs to approach WNL.
[2018-03-26] MEDS: PPN IV SCH (15:01)
[2018-03-26] MEDS: Albuterol/Ipratropium Neb 3 ML AERS HHN PRN (19:00)
--- NOTE | 2018-03-26 21:32 | GI Progress Note ---
Subjective - Review of Systems Service Date: 03/26/18 Events since last encounter: NO EVENTS Subjective: Smiling NAD Objective - Results Result Diagrams: 03/24/18 06:00 03/26/18 05:05 Recent Labs: Laboratory Last Values WBC 7.0 Th/cmm (4.8-10.8) 03/24/18 06:00 RBC 4.08 Mil/cmm (3.80-5.10) 03/24/18 06:00 Hgb 13.4 gm/dL (12-16) 03/24/18 06:00 Hct 40.7 % (41.0-60) L 03/24/18 06:00 MCV 99.8 fl (81-100) 03/24/18 06:00 MCH 32.9 pg (27.0-31.0) H 03/24/18 06:00 MCHC Differential 33.0 pg (28.0-36.0) 03/24/18 06:00 RDW 10.7 % (11.5-20.0) L 03/24/18 06:00 Plt Count 278 Th/cmm (150-400) 03/24/18 06:00 MPV 9.7 fl 03/24/18 06:00 Neutrophils % 60.8 % (40.0-80.0) 03/24/18 06:00 Lymphocytes % 25.6 % (20.0-50.0) 03/24/18 06:00 Monocytes % 9.0 % (2.0-10.0) 03/24/18 06:00 Eosinophils % 3.7 % (0.0-5.0) 03/24/18 06:00 Basophils % 0.9 % (0.0-2.0) 03/24/18 06:00 ESR 41 mm/hr (0-30) H 03/22/18 04:50 Sodium 140 mEq/L (136-145) 03/26/18 05:05 Potassium 3.7 mEq/L (3.5-5.1) 03/26/18 05:05 Chloride 106 mEq/L (98-107) 03/26/18 05:05 Carbon Dioxide 23.6 mEq/L (21.0-31.0) 03/26/18 05:05 Anion Gap 14.1 (7.0-16.0) 03/26/18 05:05 BUN 15 mg/dL (7-25) 03/26/18 05:05 Creatinine 0.4 mg/dL (0.6-1.2) L 03/26/18 05:05 Est GFR ( Amer) > 60.0 ml/min (>90) 03/26/18 05:05 Est GFR (Non-Af Amer) > 60.0 ml/min 03/26/18 05:05 BUN/Creatinine Ratio 37.5 03/26/18 05:05 Glucose 142 mg/dL (70-105) H 03/26/18 05:05 POC Glucose 130 MG/DL (70 - 105) H 03/26/18 15:20 Whole Bld Lactic Acid 1.20 mmol/L (0.60-1.99) 03/20/18 19:15 Calcium 8.3 mg/dL (8.6-10.3) L 03/26/18 05:05 Phosphorus 2.8 mg/dL (2.5-5.0) 03/26/18 05:05 Magnesium 1.9 mg/dL (1.9-2.7) 03/26/18 05:05 Total Bilirubin 0.7 mg/dL (0.3-1.0) 03/20/18 19:15 AST 20 U/L (13-39) 03/20/18 19:15 ALT 25 U/L (7-52) 03/20/18 19:15 Alkaline Phosphatase 93 U/L (34-104) 03/20/18 19:15 C-Reactive Protein < 0.2 mg/dL (0.0-0.9) 03/22/18 04:50 Total Protein 7.3 gm/dL (6.0-8.3) 03/20/18 19:15 Albumin 3.6 gm/dL (3.7-5.3) L 03/20/18 19:15 Globulin 3.7 gm/dL 03/20/18 19:15 Albumin/Globulin Ratio 1.0 (1.0-1.8) 03/20/18 19:15 Prealbumin 13 mg/dL (10-36) 03/22/18 04:50 Triglycerides 60 mg/dL (<150) 03/21/18 04:45 Cholesterol 156 mg/dL (<200) 03/21/18 04:45 LDL Cholesterol Direct 87 mg/dL (75-193) 03/21/18 04:45 HDL Cholesterol 65 mg/dL (23-92) 03/21/18 04:45 TSH 1.11 uIU/ml (0.34-5.60) 03/21/18 04:45 Vancomycin Trough 14.4 ug/mL (5-10) H 03/24/18 20:28 - Physical Exam Vitals and I&O: Vital Signs Temp 96.7 F 03/26/18 15:58 Pulse 89 03/26/18 19:01 Resp 20 03/26/18 19:01 BP 128/71 03/26/18 15:58 Pulse Ox 98 03/26/18 19:01 Intake & Output 03/26/18 03/26/18 03/27/18 06:59 18:59 06:59 Intake Total 205 2567.5 Balance 205 2567.5 Weight (lbs) 45.359 kg Intake: Intake, IV Amount 205 1742.5 Ciprofloxacin 200mg 100 Premix PB 200 mg In 100 ml @ 100 mls/hr IV Q12HR [facility] Rx#:[id number] Levetiracetam 500 mg In 105 Sodium Chloride 0.9% 100 ml @ 400 mls/hr IV Q12H [facility] Rx#:[id number] Multivitamin Inj 10 ml In 1742.5 Dextrose 70% 250 ml In Amino Acids 15% 400 ml In Water, Sterile 1,150 ml @ 75 mls/hr IV .Q24H [facility] Rx#:[id number] TPN/PPN 825 Other: # Voids 4 # Bowel Movements 1 Weight Source Bedscale Active Medications: Current Medications Acetaminophen (Tylenol 650mg/20.3ml Suspension) 650 mg GT Q4HR PRN PRN Reason: Pain Or Fever >100 Stop: 05/20/18 10:46 Albuterol/Ipratropium (Duoneb Neb) 3 ml HHN [id number] PRN PRN Reason: sob Stop: 05/20/18 10:46 Last Admin: 03/26/18 19:00 Dose: 3 ml Bisacodyl (Dulcolax 10 Mg Supp) 10 mg RC Q96H PRN PRN Reason: Constipation Stop: 05/20/18 10:46 Last Admin: 03/22/18 19:42 Dose: 10 mg Carbamazepine (Tegretol) 400 mg GT Q12HR@0900,2100 [facility] Stop: 05/20/18 10:59 Last Admin: 03/26/18 21:25 Dose: Not Given Docusate Sodium (Colace) 200 mg GT BID [facility] Stop: 05/20/18 10:59 Last Admin: 03/26/18 16:35 Dose: Not Given Hydralazine HCl (Apresoline 20 Mg/Ml) 20 mg IV Q6HR PRN PRN Reason: SBP>160 Stop: 05/23/18 13:11 Levetiracetam 500 mg/ Sodium (Chloride) 105 mls @ 400 mls/hr IV Q12H [facility] Stop: 05/21/18 22:59 Last Admin: 03/26/18 10:16 Dose: 400 mls/hr Ciprofloxacin (Cipro 200mg Premix Pb) 200 mg in 100 mls @ 100 mls/hr IV Q12HR [facility] Stop: 05/23/18 13:29 Last Admin: 03/26/18 08:33 Dose: 100 mls/hr Multivitamins/Minerals 10 ml/Dextrose/ Amino Acids/Electrolytes/ Sterile Water 1,810 mls @ 75 mls/hr IV .Q24H [facility] Stop: 04/23/18 15:59 Last Admin: 03/26/18 15:01 Dose: 75 mls/hr Insulin Aspart (Novolog Insulin Sliding Scale) 0 units SUBQ Q6H [facility]; Protocol Stop: 05/22/18 15:59 Last Admin: 03/26/18 15:26 Dose: Not Given Lactobacillus Rhamnosus (Culturelle 15b) 1 each PO DAILY [facility] Stop: 05/25/18 08:59 Last Admin: 03/26/18 08:02 Dose: Not Given Lactulose (Cephulac) 10 gm GT DAILY PRN PRN Reason: Constipation Last Admin: 03/22/18 13:47 Dose: 10 gm Magnesium Hydroxide (Milk Of Magnesia) 30 ml GT Q72H PRN PRN Reason: Constipation Stop: 05/20/18 10:48 Metoprolol Tartrate (Lopressor) 12.5 mg GT QPM [facility] Stop: 05/20/18 16:59 Last Admin: 03/26/18 16:35 Dose: Not Given Miscellaneous (Ppn Per Pharmacy) 1 ea [facility] PRN PRN PRN Reason: PROTOCOL Stop: 05/21/18 14:48 Miscellaneous (Probiotic Screen) 1 [facility] PRN PRN PRN Reason: PROTOCOL Stop: 05/24/18 17:10 Nystatin (Mycostatin Cream) 1 appl TP DAILY [facility] Stop: 05/22/18 08:59 Last Admin: 03/26/18 08:33 Dose: 1 appl Petrolatum (Zinc Oxide) 1 appl TP HS [facility] Stop: 05/21/18 20:59 Last Admin: 03/25/18 21:06 Dose: 1 appl Sodium Phosphate (Fleet Enema) 135 ml RC Q96H PRN PRN Reason: IF DULCOLAX INEFFECTIVE Stop: 05/20/18 10:46 General: Alert, No acute distress HEENT: Atraumatic Neck: Supple Cardiovascular: Regular rate, Normal S1, Normal S2 Lungs: Clear to auscultation Abdomen: Bowel sounds, Soft, Other (g tube site with ring of erythema, drainage coming from the site), no Tender, no Distended, no Rebound Extremities: no Edema Neurological: Sensation intact Skin: Rash Psych/Mental Status: Mood NL - Procedures Procedures: Procedures Procedure Code Date ASPIR CURETT UTERUS NEC 69.59 06/12/11 CHANGE FEEDING DEVICE IN UP INTEST TRACT, AUDIO VIDEO REPAIRER APPROACH [id number] 01/27/16 CHANGE GASTROSTOMY TUBE 96913 05/21/15 DILATION AND CURETTAGE 39832 06/12/11 EGD BIOPSY SINGLE/MULTIPLE 13239 07/15/16 EXCISION OF STOMACH, ENDO, DIAGN [id number] 07/15/16 INSERTION OF FEEDING DEVICE INTO STOMACH, ENDO [id number] 07/15/16 [facility] PROC ABDM/PER/OMENT 45991 07/29/13 LAPAROSCOP APPENDECTOMY 47.01 07/29/13 LAPAROSCOP LYSIS-PERITONEAL ADHES 54.51 07/29/13 LAPAROSCOPY APPENDECTOMY 57600 07/29/13 REPLACE GASTROSTOMY TUBE 97.02 07/26/14 Assessment/Plan - Assessment Assessment: # G tube site cellulitis # Dysphagia # Developmental delay - Plan Plan: # G tube site cellulitis # Dysphagia # Developmental delay As of 03/25, the site looked worse thus the G tube was pulled. Will need to wait for the area to heal prior to inserting a new one Plan: - can likely insert NG tube in a few days for feeding. Until then, PPN - new G tube will be inserted after the site heals. This can take up to 2 weeks - wound care consult - nystatin and zinc cream orderd - cont abx
[2018-03-26] MEDS: Zinc Oxide Ointment 60 gm TP SCH (22:54)
[2018-03-27] MEDS: INSULIN ASPART SLIDING SCALE 100 UNITS/ML UNIT SUBQ SCH ×4 (05:18→22:31)
[2018-03-27 07:35] LABS: ANION GAP 13.6 (7.0-16.0); BUN - UREA NITROGEN 14 mg/dL (7-25); CALCIUM SERUM 8.6 mg/dL (8.6-10.3); CARBON DIOXIDE 25.6 mEq/L (21.0-31.0); CHLORIDE 104 mEq/L (98-107); CREATININE - SERUM 0.4 mg/dL (0.6-1.2); GFR AFRICAN-AMERICAN > 60.0 ml/min (>90); GFR NON AFRICAN-AMERICAN > 60.0 ml/min; GLUCOSE 132 mg/dL (70-105); MAGNESIUM 2.2 mg/dL (1.9-2.7); PHOSPHOROUS 2.9 mg/dL (2.5-5.0); POTASSIUM SERUM 4.2 mEq/L (3.5-5.1); SODIUM SERUM 139 mEq/L (136-145)
[2018-03-27] MEDS: carBAMazepine 200 mg/10 mL UDC GT SCH ×2 (09:03→22:29)
[2018-03-27] MEDS: Docusate Sodium 100 mg/10 mL UD GT SCH ×2 (09:03→16:01)
[2018-03-27] MEDS: Lactobacillus Rhamnosus GG 15 Billion CFU CAP.SPRINK PO SCH (09:03)
[2018-03-27] MEDS: Nystatin Cream 100,000 u/gm Cream 15 gm TP SCH (09:07)
[2018-03-27] MEDS: Ciprofloxacin 200mg Premix PB 200 MG/100 ML BAG IV SCH (09:08)
--- NOTE | 2018-03-27 10:14 | GI Progress Note ---
Subjective - Review of Systems Service Date: 03/27/18 Events since last encounter: No events Subjective: Smiling NAD Objective - Results Result Diagrams: 03/24/18 06:00 03/27/18 06:00 Recent Labs: Laboratory Last Values WBC 7.0 Th/cmm (4.8-10.8) 03/24/18 06:00 RBC 4.08 Mil/cmm (3.80-5.10) 03/24/18 06:00 Hgb 13.4 gm/dL (12-16) 03/24/18 06:00 Hct 40.7 % (41.0-60) L 03/24/18 06:00 MCV 99.8 fl (81-100) 03/24/18 06:00 MCH 32.9 pg (27.0-31.0) H 03/24/18 06:00 MCHC Differential 33.0 pg (28.0-36.0) 03/24/18 06:00 RDW 10.7 % (11.5-20.0) L 03/24/18 06:00 Plt Count 278 Th/cmm (150-400) 03/24/18 06:00 MPV 9.7 fl 03/24/18 06:00 Neutrophils % 60.8 % (40.0-80.0) 03/24/18 06:00 Lymphocytes % 25.6 % (20.0-50.0) 03/24/18 06:00 Monocytes % 9.0 % (2.0-10.0) 03/24/18 06:00 Eosinophils % 3.7 % (0.0-5.0) 03/24/18 06:00 Basophils % 0.9 % (0.0-2.0) 03/24/18 06:00 ESR 41 mm/hr (0-30) H 03/22/18 04:50 Sodium 139 mEq/L (136-145) 03/27/18 06:00 Potassium 4.2 mEq/L (3.5-5.1) 03/27/18 06:00 Chloride 104 mEq/L (98-107) 03/27/18 06:00 Carbon Dioxide 25.6 mEq/L (21.0-31.0) 03/27/18 06:00 Anion Gap 13.6 (7.0-16.0) 03/27/18 06:00 BUN 14 mg/dL (7-25) 03/27/18 06:00 Creatinine 0.4 mg/dL (0.6-1.2) L 03/27/18 06:00 Est GFR ( Amer) > 60.0 ml/min (>90) 03/27/18 06:00 Est GFR (Non-Af Amer) > 60.0 ml/min 03/27/18 06:00 BUN/Creatinine Ratio 35.0 03/27/18 06:00 Glucose 132 mg/dL (70-105) H 03/27/18 06:00 POC Glucose 131 MG/DL (70 - 105) H 03/27/18 05:15 Whole Bld Lactic Acid 1.20 mmol/L (0.60-1.99) 03/20/18 19:15 Calcium 8.6 mg/dL (8.6-10.3) 03/27/18 06:00 Phosphorus 2.9 mg/dL (2.5-5.0) 03/27/18 06:00 Magnesium 2.2 mg/dL (1.9-2.7) 03/27/18 06:00 Total Bilirubin 0.7 mg/dL (0.3-1.0) 03/20/18 19:15 AST 20 U/L (13-39) 03/20/18 19:15 ALT 25 U/L (7-52) 03/20/18 19:15 Alkaline Phosphatase 93 U/L (34-104) 03/20/18 19:15 C-Reactive Protein < 0.2 mg/dL (0.0-0.9) 03/22/18 04:50 Total Protein 7.3 gm/dL (6.0-8.3) 03/20/18 19:15 Albumin 3.6 gm/dL (3.7-5.3) L 03/20/18 19:15 Globulin 3.7 gm/dL 03/20/18 19:15 Albumin/Globulin Ratio 1.0 (1.0-1.8) 03/20/18 19:15 Prealbumin 13 mg/dL (10-36) 03/22/18 04:50 Triglycerides 60 mg/dL (<150) 03/21/18 04:45 Cholesterol 156 mg/dL (<200) 03/21/18 04:45 LDL Cholesterol Direct 87 mg/dL (75-193) 03/21/18 04:45 HDL Cholesterol 65 mg/dL (23-92) 03/21/18 04:45 TSH 1.11 uIU/ml (0.34-5.60) 03/21/18 04:45 Vancomycin Trough 14.4 ug/mL (5-10) H 03/24/18 20:28 - Physical Exam Vitals and I&O: Vital Signs Temp 98.0 F 03/27/18 08:00 Pulse 97 03/27/18 08:00 Resp 18 03/27/18 08:00 BP 138/89 03/27/18 08:00 Pulse Ox 100 03/27/18 08:00 Intake & Output 03/26/18 03/27/18 03/27/18 18:59 06:59 18:59 Intake Total 2772.5 100 Balance 2772.5 100 Weight (lbs) 45.359 kg 40.234 kg Intake: Intake, IV Amount 1947.5 100 Ciprofloxacin 200mg 100 100 Premix PB 200 mg In 100 ml @ 100 mls/hr IV Q12HR [facility] Rx#:[id number] Levetiracetam 500 mg In 105 Sodium Chloride 0.9% 100 ml @ 400 mls/hr IV Q12H [facility] Rx#:[id number] Multivitamin Inj 10 ml In 1742.5 Dextrose 70% 250 ml In Amino Acids 15% 400 ml In Water, Sterile 1,150 ml @ 75 mls/hr IV .Q24H [facility] Rx#:[id number] TPN/PPN 825 Other: # Voids 4 2 # Bowel Movements 1 Weight Source Bedscale Bedscale Active Medications: Current Medications Acetaminophen (Tylenol 650mg/20.3ml Suspension) 650 mg GT Q4HR PRN PRN Reason: Pain Or Fever >100 Stop: 05/20/18 10:46 Albuterol/Ipratropium (Duoneb Neb) 3 ml HHN [id number] PRN PRN Reason: sob Stop: 05/20/18 10:46 Last Admin: 03/26/18 19:00 Dose: 3 ml Bisacodyl (Dulcolax 10 Mg Supp) 10 mg RC Q96H PRN PRN Reason: Constipation Stop: 05/20/18 10:46 Last Admin: 03/22/18 19:42 Dose: 10 mg Carbamazepine (Tegretol) 400 mg GT Q12HR@0900,2100 [facility] Stop: 05/20/18 10:59 Last Admin: 03/27/18 09:03 Dose: Not Given Docusate Sodium (Colace) 200 mg GT BID [facility] Stop: 05/20/18 10:59 Last Admin: 03/27/18 09:03 Dose: Not Given Hydralazine HCl (Apresoline 20 Mg/Ml) 20 mg IV Q6HR PRN PRN Reason: SBP>160 Stop: 05/23/18 13:11 Levetiracetam 500 mg/ Sodium (Chloride) 105 mls @ 400 mls/hr IV Q12H [facility] Stop: 05/21/18 22:59 Last Admin: 03/26/18 23:05 Dose: 400 mls/hr Ciprofloxacin (Cipro 200mg Premix Pb) 200 mg in 100 mls @ 100 mls/hr IV Q12HR [facility] Stop: 05/23/18 13:29 Last Admin: 03/27/18 09:08 Dose: 100 mls/hr Multivitamins/Minerals 10 ml/Dextrose/ Amino Acids/Electrolytes/ Sterile Water 1,810 mls @ 75 mls/hr IV .Q24H [facility] Stop: 04/23/18 15:59 Last Admin: 03/26/18 15:01 Dose: 75 mls/hr Insulin Aspart (Novolog Insulin Sliding Scale) 0 units SUBQ Q6H [facility]; Protocol Stop: 05/22/18 15:59 Last Admin: 03/27/18 05:18 Dose: Not Given Lactobacillus Rhamnosus (Culturelle 15b) 1 each PO DAILY [facility] Stop: 05/25/18 08:59 Last Admin: 03/27/18 09:03 Dose: Not Given Lactulose (Cephulac) 10 gm GT DAILY PRN PRN Reason: Constipation Last Admin: 03/22/18 13:47 Dose: 10 gm Magnesium Hydroxide (Milk Of Magnesia) 30 ml GT Q72H PRN PRN Reason: Constipation Stop: 05/20/18 10:48 Metoprolol Tartrate (Lopressor) 12.5 mg GT QPM [facility] Stop: 05/20/18 16:59 Last Admin: 03/26/18 16:35 Dose: Not Given Miscellaneous (Ppn Per Pharmacy) 1 ea PRN PRN PRN Reason: PROTOCOL Stop: 05/21/18 14:48 Miscellaneous (Probiotic Screen) 1 [facility] PRN PRN PRN Reason: PROTOCOL Stop: 05/24/18 17:10 Nystatin (Mycostatin Cream) 1 appl TP DAILY [facility] Stop: 05/22/18 08:59 Last Admin: 03/27/18 09:07 Dose: 1 appl Petrolatum (Zinc Oxide) 1 appl TP HS [facility] Stop: 05/21/18 20:59 Last Admin: 03/26/18 22:54 Dose: 1 appl Sodium Phosphate (Fleet Enema) 135 ml RC Q96H PRN PRN Reason: IF DULCOLAX INEFFECTIVE Stop: 05/20/18 10:46 General: Alert, No acute distress HEENT: Atraumatic Neck: Supple Cardiovascular: Regular rate, Normal S1, Normal S2 Lungs: Clear to auscultation Abdomen: Bowel sounds, Soft, Other (g tube site with ring of erythema, drainage coming from the site), no Tender, no Distended, no Rebound Extremities: no Edema Neurological: Sensation intact Skin: Rash Psych/Mental Status: Mood NL - Procedures Procedures: Procedures Procedure Code Date ASPIR CURETT UTERUS NEC 69.59 06/12/11 CHANGE FEEDING DEVICE IN UP INTEST TRACT, HIDE EXAMINER APPROACH [id number] 01/27/16 CHANGE GASTROSTOMY TUBE 15030 05/21/15 DILATION AND CURETTAGE 51909 06/12/11 EGD BIOPSY SINGLE/MULTIPLE 67137 07/15/16 EXCISION OF STOMACH, ENDO, DIAGN [id number] 07/15/16 INSERTION OF FEEDING DEVICE INTO STOMACH, ENDO [id number] 07/15/16 LAPARO PROC ABDM/PER/OMENT 34900 07/29/13 LAPAROSCOP APPENDECTOMY 47.01 07/29/13 LAPAROSCOP LYSIS-PERITONEAL ADHES 54.51 07/29/13 LAPAROSCOPY APPENDECTOMY 13681 07/29/13 REPLACE GASTROSTOMY TUBE 97.02 07/26/14 Assessment/Plan - Assessment Assessment: # G tube site cellulitis # Dysphagia # Developmental delay - Plan Plan: # G tube site cellulitis # Dysphagia # Developmental delay As of 03/25, the site looked worse thus the G tube was pulled. Will need to wait for the area to heal prior to inserting a new one Plan: - can likely insert NG tube in a few days for feeding. Until then, PPN - new G tube will be inserted after the site heals. This can take up to 2 weeks - wound care consult - nystatin and zinc cream orderd - cont abx
[2018-03-27] MEDS: PPN IV SCH (15:43)
--- NOTE | 2018-03-27 16:19 | General Progress Note ---
Subjective - Review of Systems Service Date: 03/27/18 Subjective: alert, nonverbal Objective - Results Result Diagrams: 03/24/18 06:00 03/27/18 06:00 Recent Labs: Laboratory Last Values WBC 7.0 Th/cmm (4.8-10.8) 03/24/18 06:00 RBC 4.08 Mil/cmm (3.80-5.10) 03/24/18 06:00 Hgb 13.4 gm/dL (12-16) 03/24/18 06:00 Hct 40.7 % (41.0-60) L 03/24/18 06:00 MCV 99.8 fl (81-100) 03/24/18 06:00 MCH 32.9 pg (27.0-31.0) H 03/24/18 06:00 MCHC Differential 33.0 pg (28.0-36.0) 03/24/18 06:00 RDW 10.7 % (11.5-20.0) L 03/24/18 06:00 Plt Count 278 Th/cmm (150-400) 03/24/18 06:00 MPV 9.7 fl 03/24/18 06:00 Neutrophils % 60.8 % (40.0-80.0) 03/24/18 06:00 Lymphocytes % 25.6 % (20.0-50.0) 03/24/18 06:00 Monocytes % 9.0 % (2.0-10.0) 03/24/18 06:00 Eosinophils % 3.7 % (0.0-5.0) 03/24/18 06:00 Basophils % 0.9 % (0.0-2.0) 03/24/18 06:00 ESR 41 mm/hr (0-30) H 03/22/18 04:50 Sodium 139 mEq/L (136-145) 03/27/18 06:00 Potassium 4.2 mEq/L (3.5-5.1) 03/27/18 06:00 Chloride 104 mEq/L (98-107) 03/27/18 06:00 Carbon Dioxide 25.6 mEq/L (21.0-31.0) 03/27/18 06:00 Anion Gap 13.6 (7.0-16.0) 03/27/18 06:00 BUN 14 mg/dL (7-25) 03/27/18 06:00 Creatinine 0.4 mg/dL (0.6-1.2) L 03/27/18 06:00 Est GFR ( Amer) > 60.0 ml/min (>90) 03/27/18 06:00 Est GFR (Non-Af Amer) > 60.0 ml/min 03/27/18 06:00 BUN/Creatinine Ratio 35.0 03/27/18 06:00 Glucose 132 mg/dL (70-105) H 03/27/18 06:00 POC Glucose 109 MG/DL (70 - 105) H 03/27/18 15:59 Whole Bld Lactic Acid 1.20 mmol/L (0.60-1.99) 03/20/18 19:15 Calcium 8.6 mg/dL (8.6-10.3) 03/27/18 06:00 Phosphorus 2.9 mg/dL (2.5-5.0) 03/27/18 06:00 Magnesium 2.2 mg/dL (1.9-2.7) 03/27/18 06:00 Total Bilirubin 0.7 mg/dL (0.3-1.0) 03/20/18 19:15 AST 20 U/L (13-39) 03/20/18 19:15 ALT 25 U/L (7-52) 03/20/18 19:15 Alkaline Phosphatase 93 U/L (34-104) 03/20/18 19:15 C-Reactive Protein < 0.2 mg/dL (0.0-0.9) 03/22/18 04:50 Total Protein 7.3 gm/dL (6.0-8.3) 03/20/18 19:15 Albumin 3.6 gm/dL (3.7-5.3) L 03/20/18 19:15 Globulin 3.7 gm/dL 03/20/18 19:15 Albumin/Globulin Ratio 1.0 (1.0-1.8) 03/20/18 19:15 Prealbumin 13 mg/dL (10-36) 03/22/18 04:50 Triglycerides 60 mg/dL (<150) 03/21/18 04:45 Cholesterol 156 mg/dL (<200) 03/21/18 04:45 LDL Cholesterol Direct 87 mg/dL (75-193) 03/21/18 04:45 HDL Cholesterol 65 mg/dL (23-92) 03/21/18 04:45 TSH 1.11 uIU/ml (0.34-5.60) 03/21/18 04:45 Vancomycin Trough 14.4 ug/mL (5-10) H 03/24/18 20:28 - Physical Exam Vitals and I&O: Vital Signs Temp 98.0 F 03/27/18 16:10 Pulse 85 03/27/18 16:10 Resp 19 03/27/18 16:10 BP 132/91 03/27/18 16:10 Pulse Ox 100 03/27/18 16:10 Intake & Output 03/26/18 03/27/18 03/27/18 18:59 06:59 18:59 Intake Total 2772.5 205 2014 Balance 2772.5 205 2014 Weight (lbs) 45.359 kg 40.234 kg Intake: Intake, IV Amount 1947.5 205 2014 Ciprofloxacin 200mg 100 100 100 Premix PB 200 mg In 100 ml @ 100 mls/hr IV Q12HR [facility] Rx#:[id number] Levetiracetam 500 mg In 105 105 105 Sodium Chloride 0.9% 100 ml @ 400 mls/hr IV Q12H [facility] Rx#:[id number] Multivitamin Inj 10 ml In 1742.5 1810 Dextrose 70% 250 ml In Amino Acids 15% 400 ml In Water, Sterile 1,150 ml @ 75 mls/hr IV .Q24H [facility] Rx#:[id number] TPN/PPN 825 Other: # Voids 4 2 # Bowel Movements 1 Weight Source Bedscale Bedscale Active Medications: Current Medications Acetaminophen (Tylenol 650mg/20.3ml Suspension) 650 mg GT Q4HR PRN PRN Reason: Pain Or Fever >100 Stop: 05/20/18 10:46 Albuterol/Ipratropium (Duoneb Neb) 3 ml HHN [id number] PRN PRN Reason: sob Stop: 05/20/18 10:46 Last Admin: 03/26/18 19:00 Dose: 3 ml Bisacodyl (Dulcolax 10 Mg Supp) 10 mg RC Q96H PRN PRN Reason: Constipation Stop: 05/20/18 10:46 Last Admin: 03/22/18 19:42 Dose: 10 mg Carbamazepine (Tegretol) 400 mg GT Q12HR@0900,2100 [facility] Stop: 05/20/18 10:59 Last Admin: 03/27/18 09:03 Dose: Not Given Docusate Sodium (Colace) 200 mg GT BID [facility] Stop: 05/20/18 10:59 Last Admin: 03/27/18 16:01 Dose: Not Given Hydralazine HCl (Apresoline 20 Mg/Ml) 20 mg IV Q6HR PRN PRN Reason: SBP>160 Stop: 05/23/18 13:11 Levetiracetam 500 mg/ Sodium (Chloride) 105 mls @ 400 mls/hr IV Q12H [facility] Stop: 05/21/18 22:59 Last Infusion: 03/27/18 15:56 Dose: Infused Ciprofloxacin (Cipro 200mg Premix Pb) 200 mg in 100 mls @ 100 mls/hr IV Q12HR [facility] Stop: 05/23/18 13:29 Last Infusion: 03/27/18 10:53 Dose: Infused Multivitamins/Minerals 10 ml/Dextrose/ Amino Acids/Electrolytes/ Sterile Water 1,810 mls @ 75 mls/hr IV .Q24H [facility] Stop: 04/23/18 15:59 Last Admin: 03/27/18 15:43 Dose: 75 mls/hr Insulin Aspart (Novolog Insulin Sliding Scale) 0 units SUBQ Q6H [facility]; Protocol Stop: 05/22/18 15:59 Last Admin: 03/27/18 16:00 Dose: Not Given Lactobacillus Rhamnosus (Culturelle 15b) 1 each PO DAILY [facility] Stop: 05/25/18 08:59 Last Admin: 03/27/18 09:03 Dose: Not Given Lactulose (Cephulac) 10 gm GT DAILY PRN PRN Reason: Constipation Last Admin: 03/22/18 13:47 Dose: 10 gm Magnesium Hydroxide (Milk Of Magnesia) 30 ml GT Q72H PRN PRN Reason: Constipation Stop: 05/20/18 10:48 Metoprolol Tartrate (Lopressor) 12.5 mg GT QPM [facility] Stop: 05/20/18 16:59 Last Admin: 03/27/18 16:01 Dose: Not Given Miscellaneous (Ppn Per Pharmacy) 1 ea [facility] PRN PRN PRN Reason: PROTOCOL Stop: 05/21/18 14:48 Miscellaneous (Probiotic Screen) 1 ea [facility] PRN PRN PRN Reason: PROTOCOL Stop: 05/24/18 17:10 Nystatin (Mycostatin Cream) 1 appl TP DAILY [facility] Stop: 05/22/18 08:59 Last Admin: 03/27/18 09:07 Dose: 1 appl Petrolatum (Zinc Oxide) 1 appl TP HS [facility] Stop: 05/21/18 20:59 Last Admin: 03/26/18 22:54 Dose: 1 appl Sodium Phosphate (Fleet Enema) 135 ml RC Q96H PRN PRN Reason: IF DULCOLAX INEFFECTIVE Stop: 05/20/18 10:46 General: Alert, No acute distress HEENT: Atraumatic, Mucous membr. moist/pink Neck: Supple, +2 carotid pulse wo bruit Cardiovascular: Regular rate, Normal S1, Normal S2 Lungs: Clear to auscultation Abdomen: Bowel sounds, Soft, Other (g tube site with ring of erythema, drainage coming from the site), no Tender, no Distended, no Rebound Extremities: no Edema Neurological: Sensation intact Skin: Rash Psych/Mental Status: Mood NL - Procedures Procedures: Procedures Procedure Code Date ASPIR CURETT UTERUS NEC 69.59 06/12/11 CHANGE FEEDING DEVICE IN UP INTEST TRACT, GROMMET WORKER APPROACH [id number] 01/27/16 CHANGE GASTROSTOMY TUBE 93962 05/21/15 DILATION AND CURETTAGE 58389 06/12/11 EGD BIOPSY SINGLE/MULTIPLE 12148 07/15/16 EXCISION OF STOMACH, ENDO, DIAGN [id number] 07/15/16 INSERTION OF FEEDING DEVICE INTO STOMACH, ENDO [id number] 07/15/16 [facility] PROC ABDM/PER/OMENT 81882 07/29/13 LAPAROSCOP APPENDECTOMY 47.01 07/29/13 LAPAROSCOP LYSIS-PERITONEAL ADHES 54.51 07/29/13 LAPAROSCOPY APPENDECTOMY 59571 07/29/13 REPLACE GASTROSTOMY TUBE 97.02 07/26/14 Assessment/Plan - Assessment Assessment: GT site malfunc w/ leakage GT site Cellulitis Hyponatremia resolved Constipation Epilepsy Intellectual Disability - Plan Plan: Lab - Result Diagrams 03/24/18 06:00 03/26/18 05:05 Current Medications Acetaminophen (Tylenol 650mg/20.3ml Suspension) 650 mg GT Q4HR PRN PRN Reason: Pain Or Fever >100 Stop: 05/20/18 10:46 Albuterol/Ipratropium (Duoneb Neb) 3 ml HHN [id number] PRN PRN Reason: sob Stop: 05/20/18 10:46 Last Admin: 03/25/18 20:04 Dose: 3 ml Bisacodyl (Dulcolax 10 Mg Supp) 10 mg RC Q96H PRN PRN Reason: Constipation Stop: 05/20/18 10:46 Last Admin: 03/22/18 19:42 Dose: 10 mg Carbamazepine (Tegretol) 400 mg GT Q12HR@0900,2100 [facility] Stop: 05/20/18 10:59 Last Admin: 03/26/18 08:02 Dose: Not Given Docusate Sodium (Colace) 200 mg GT BID [facility] Stop: 05/20/18 10:59 Last Admin: 03/26/18 08:02 Dose: Not Given Hydralazine HCl (Apresoline 20 Mg/Ml) 20 mg IV Q6HR PRN PRN Reason: SBP>160 Stop: 05/23/18 13:11 Levetiracetam 500 mg/ Sodium (Chloride) 105 mls @ 400 mls/hr IV Q12H [facility] Stop: 05/21/18 22:59 Last Admin: 03/26/18 10:16 Dose: 400 mls/hr Ciprofloxacin (Cipro 200mg Premix Pb) 200 mg in 100 mls @ 100 mls/hr IV Q12HR [facility] Stop: 05/23/18 13:29 Last Admin: 03/26/18 08:33 Dose: 100 mls/hr Multivitamins/Minerals 10 ml/Dextrose/ Amino Acids/Electrolytes/ Sterile Water 1,810 mls @ 75 mls/hr IV .Q24H [facility] Stop: 04/23/18 15:59 Last Admin: 03/25/18 15:47 Dose: 75 mls/hr Insulin Aspart (Novolog Insulin Sliding Scale) 0 units SUBQ Q6H [facility]; Protocol Stop: 05/22/18 15:59 Last Admin: 03/26/18 09:22 Dose: Not Given Lactobacillus Rhamnosus (Culturelle 15b) 1 each PO DAILY [facility] Stop: 05/25/18 08:59 Last Admin: 03/26/18 08:02 Dose: Not Given Lactulose (Cephulac) 10 gm GT DAILY PRN PRN Reason: Constipation Last Admin: 03/22/18 13:47 Dose: 10 gm Magnesium Hydroxide (Milk Of Magnesia) 30 ml GT Q72H PRN PRN Reason: Constipation Stop: 05/20/18 10:48 Metoprolol Tartrate (Lopressor) 12.5 mg GT QPM [facility] Stop: 05/20/18 16:59 Last Admin: 03/25/18 16:31 Dose: Not Given Miscellaneous (Ppn Per Pharmacy) 1 ea PRN PRN PRN Reason: PROTOCOL Stop: 05/21/18 14:48 Miscellaneous (Probiotic Screen) 1 ea PRN PRN PRN Reason: PROTOCOL Stop: 05/24/18 17:10 Nystatin (Mycostatin Cream) 1 appl TP DAILY [facility] Stop: 05/22/18 08:59 Last Admin: 03/26/18 08:33 Dose: 1 appl Petrolatum (Zinc Oxide) 1 appl TP HS [facility] Stop: 05/21/18 20:59 Last Admin: 03/25/18 21:06 Dose: 1 appl Sodium Phosphate (Fleet Enema) 135 ml RC Q96H PRN PRN Reason: IF DULCOLAX INEFFECTIVE Stop: 05/20/18 10:46 Lab - Result Diagrams 03/24/18 06:00 Lab - Result Diagrams 03/27/18 06:00 continue PPN @ 40 ml/hr maintain on Cipro monitor for fever Nutritional Asmnt/Malnutr-PDOC - Dietary Evaluation Malnutrition Findings (Please click <Entered> for more info): Nutritional Asmnt/Malnutrition Start: 03/21/18 13: 29 Text: Status: Complete Freq: Protocol: Document 03/21/18 13:29 LCHENG (Rec: 03/21/18 13:45 [email or web address] [email or web address]) Nutritional Asmnt/Malnutrition Patient General Information Nutritional Screening High Risk Consult Diagnosis displacement of Gtube, Gtube site cellulitis Pertinent Medical Hx/Surgical Hx HTN, PUD?GERD, seizures, hepatitis B and C, developmentally disabled, quadriplegic Subjective Information Consult reiceved for shayna score 11. Pt seen in bed, non verbal noted. Per nurse pt is tolerating current tube feeding. CALEB Rdz asked about TF rate since pt was receiving Jevity 1.5 at alf and our hospital only carries Jevity 1.2. Current Diet Order/ Nutrition Support Jevity 1.2 at 40ml/hr x 20hr, providing 960kcal and 44g protein Pertinent Medications oscal w/vit D, colace, nacl 0. 9%, vancomycin Pertinent Labs 2/4 Cl 108, Cr 0.4 2/3 Cr 0.4, glucose 109, alb 3 .6 Nutritional Hx/Data Height 1.6 m Height (Calculated Centimeters) 160.0 Current Weight (lbs) 45.359 kg Weight (Calculated Kilograms) 45.4 Weight (Calculated Grams) 26544.2 [place] Body Weight 115 Body Mass Index (BMI) 17.6 Weight Status Underweight GI Symptoms GI Symptoms None Last BM not indicated Usual diet at home Jevity 1.5 at 40ml/hr x 20hr at [facility] Skin Integrity/Comment: cellulitis reddened to Gtube site shayna 11 Estimated Nutritional Goals Calories/Kcals/Kg 25-30 IBW 52kg Kcals Calculated 4224-9171 Protein g/k-1.2 Protein Calculated 52-62 Fluid: ml 1300-1560ml (1ml/kcal) Nutritional Problem 1. Problem Problem inadequate intake from enteral feeding Etiology current TF regimen not meeting nutritional needs Signs/Symptoms: current TF providing 960kcal and 44g protein Malnutrition Related to Morbid Obesity Malnutrition related to morbid obesity No Intervention/Recommendation Comments 1. Recommend to increase TF rate to Jevity 1.2 at 55ml/hr x 20hr. It provides 1320kcal, 61g protein, 888ml free water, meeting 100% of nutritional needs. CALEB Rdz notified. 2. Monitor TF rate, tolerance, wt, skin integrity and labs 3. F/U as high risk in 2-3 days, 2/5-2/6 Expected Outcomes/Goals Expected Outcomes/Goals 1. Pt to meet at least 90% of nutritional needs via nutrition support with tolerance 2. Wt stability, skin to remain intact, labs to approach WNL.
[2018-03-27] MEDS: Zinc Oxide Ointment 60 gm TP SCH (22:37)
[2018-03-28] MEDS: Ciprofloxacin 200mg Premix PB 200 MG/100 ML BAG IV SCH ×3 (00:41→21:45)
[2018-03-28] MEDS: INSULIN ASPART SLIDING SCALE 100 UNITS/ML UNIT SUBQ SCH (04:43)
[2018-03-28 05:59] LABS: ANION GAP 15.5 (7.0-16.0); BUN - UREA NITROGEN 14 mg/dL (7-25); CHLORIDE 104 mEq/L (98-107); CREATININE - SERUM 0.4 mg/dL (0.6-1.2); GFR AFRICAN-AMERICAN > 60.0 ml/min (>90); GFR NON AFRICAN-AMERICAN > 60.0 ml/min; GLUCOSE 127 mg/dL (70-105); PHOSPHOROUS 3.6 mg/dL (2.5-5.0); POTASSIUM SERUM 4.5 mEq/L (3.5-5.1); SODIUM SERUM 140 mEq/L (136-145)
--- NOTE | 2018-03-28 08:49 | GI Progress Note ---
Subjective - Review of Systems Service Date: 03/28/18 Subjective: No overnight events Objective - Results Result Diagrams: 03/24/18 06:00 03/28/18 04:55 Recent Labs: Laboratory Last Values WBC 7.0 Th/cmm (4.8-10.8) 03/24/18 06:00 RBC 4.08 Mil/cmm (3.80-5.10) 03/24/18 06:00 Hgb 13.4 gm/dL (12-16) 03/24/18 06:00 Hct 40.7 % (41.0-60) L 03/24/18 06:00 MCV 99.8 fl (81-100) 03/24/18 06:00 MCH 32.9 pg (27.0-31.0) H 03/24/18 06:00 MCHC Differential 33.0 pg (28.0-36.0) 03/24/18 06:00 RDW 10.7 % (11.5-20.0) L 03/24/18 06:00 Plt Count 278 Th/cmm (150-400) 03/24/18 06:00 MPV 9.7 fl 03/24/18 06:00 Neutrophils % 60.8 % (40.0-80.0) 03/24/18 06:00 Lymphocytes % 25.6 % (20.0-50.0) 03/24/18 06:00 Monocytes % 9.0 % (2.0-10.0) 03/24/18 06:00 Eosinophils % 3.7 % (0.0-5.0) 03/24/18 06:00 Basophils % 0.9 % (0.0-2.0) 03/24/18 06:00 ESR 41 mm/hr (0-30) H 03/22/18 04:50 Sodium 140 mEq/L (136-145) 03/28/18 04:55 Potassium 4.5 mEq/L (3.5-5.1) 03/28/18 04:55 Chloride 104 mEq/L (98-107) 03/28/18 04:55 Carbon Dioxide 25.0 mEq/L (21.0-31.0) 03/28/18 04:55 Anion Gap 15.5 (7.0-16.0) 03/28/18 04:55 BUN 14 mg/dL (7-25) 03/28/18 04:55 Creatinine 0.4 mg/dL (0.6-1.2) L 03/28/18 04:55 Est GFR ( Amer) > 60.0 ml/min (>90) 03/28/18 04:55 Est GFR (Non-Af Amer) > 60.0 ml/min 03/28/18 04:55 BUN/Creatinine Ratio 35.0 03/28/18 04:55 Glucose 127 mg/dL (70-105) H 03/28/18 04:55 POC Glucose 108 MG/DL (70 - 105) H 03/28/18 04:37 Whole Bld Lactic Acid 1.20 mmol/L (0.60-1.99) 03/20/18 19:15 Calcium 9.0 mg/dL (8.6-10.3) 03/28/18 04:55 Phosphorus 3.6 mg/dL (2.5-5.0) 03/28/18 04:55 Magnesium 2.0 mg/dL (1.9-2.7) 03/28/18 04:55 Total Bilirubin 0.7 mg/dL (0.3-1.0) 03/20/18 19:15 AST 20 U/L (13-39) 03/20/18 19:15 ALT 25 U/L (7-52) 03/20/18 19:15 Alkaline Phosphatase 93 U/L (34-104) 03/20/18 19:15 C-Reactive Protein < 0.2 mg/dL (0.0-0.9) 03/22/18 04:50 Total Protein 7.3 gm/dL (6.0-8.3) 03/20/18 19:15 Albumin 3.6 gm/dL (3.7-5.3) L 03/20/18 19:15 Globulin 3.7 gm/dL 03/20/18 19:15 Albumin/Globulin Ratio 1.0 (1.0-1.8) 03/20/18 19:15 Prealbumin 13 mg/dL (10-36) 03/22/18 04:50 Triglycerides 60 mg/dL (<150) 03/21/18 04:45 Cholesterol 156 mg/dL (<200) 03/21/18 04:45 LDL Cholesterol Direct 87 mg/dL (75-193) 03/21/18 04:45 HDL Cholesterol 65 mg/dL (23-92) 03/21/18 04:45 TSH 1.11 uIU/ml (0.34-5.60) 03/21/18 04:45 Vancomycin Trough 14.4 ug/mL (5-10) H 03/24/18 20:28 - Physical Exam Vitals and I&O: Vital Signs Temp 98.7 F 03/28/18 04:00 Pulse 82 03/28/18 04:00 Resp 17 03/28/18 04:00 BP 132/74 03/28/18 04:00 Pulse Ox 99 03/28/18 04:00 Intake & Output 03/27/18 03/28/18 03/28/18 18:59 06:59 18:59 Intake Total 2014 1105 Balance 2014 1105 Weight (lbs) 40.234 kg 39.916 kg Intake: Intake, IV Amount 2014 205 Ciprofloxacin 200mg 100 100 Premix PB 200 mg In 100 ml @ 100 mls/hr IV Q12HR [facility] Rx#:[id number] Levetiracetam 500 mg In 105 105 Sodium Chloride 0.9% 100 ml @ 400 mls/hr IV Q12H [facility] Rx#:[id number] Multivitamin Inj 10 ml In 1810 Dextrose 70% 250 ml In Amino Acids 15% 400 ml In Water, Sterile 1,150 ml @ 75 mls/hr IV .Q24H [facility] Rx#:[id number] Oral 0 TPN/PPN 900 Other: # Voids 2 2 # Bowel Movements 0 Weight Source Bedscale Bedscale Active Medications: Current Medications Acetaminophen (Tylenol 650mg/20.3ml Suspension) 650 mg GT Q4HR PRN PRN Reason: Pain Or Fever >100 Stop: 05/20/18 10:46 Albuterol/Ipratropium (Duoneb Neb) 3 ml HHN [id number] PRN PRN Reason: sob Stop: 05/20/18 10:46 Last Admin: 03/26/18 19:00 Dose: 3 ml Bisacodyl (Dulcolax 10 Mg Supp) 10 mg RC Q96H PRN PRN Reason: Constipation Stop: 05/20/18 10:46 Last Admin: 03/22/18 19:42 Dose: 10 mg Carbamazepine (Tegretol) 400 mg GT Q12HR@0900,2100 [facility] Stop: 05/20/18 10:59 Last Admin: 03/27/18 22:29 Dose: Not Given Docusate Sodium (Colace) 200 mg GT BID [facility] Stop: 05/20/18 10:59 Last Admin: 03/27/18 16:01 Dose: Not Given Hydralazine HCl (Apresoline 20 Mg/Ml) 20 mg IV Q6HR PRN PRN Reason: SBP>160 Stop: 05/23/18 13:11 Levetiracetam 500 mg/ Sodium (Chloride) 105 mls @ 400 mls/hr IV Q12H [facility] Stop: 05/21/18 22:59 Last Infusion: 03/28/18 04:19 Dose: Infused Ciprofloxacin (Cipro 200mg Premix Pb) 200 mg in 100 mls @ 100 mls/hr IV Q12HR [facility] Stop: 05/23/18 13:29 Last Infusion: 03/28/18 00:55 Dose: Infused Multivitamins/Minerals 10 ml/Dextrose/ Amino Acids/Electrolytes/ Sterile Water 1,810 mls @ 75 mls/hr IV .Q24H [facility] Stop: 04/23/18 15:59 Last Admin: 03/27/18 15:43 Dose: 75 mls/hr Insulin Aspart (Novolog Insulin Sliding Scale) 0 units SUBQ Q6H [facility]; Protocol Stop: 05/22/18 15:59 Last Admin: 03/28/18 04:43 Dose: Not Given Lactobacillus Rhamnosus (Culturelle 15b) 1 each PO DAILY [facility] Stop: 05/25/18 08:59 Last Admin: 03/27/18 09:03 Dose: Not Given Lactulose (Cephulac) 10 gm GT DAILY PRN PRN Reason: Constipation Last Admin: 03/22/18 13:47 Dose: 10 gm Magnesium Hydroxide (Milk Of Magnesia) 30 ml GT Q72H PRN PRN Reason: Constipation Stop: 05/20/18 10:48 Metoprolol Tartrate (Lopressor) 12.5 mg GT QPM [facility] Stop: 05/20/18 16:59 Last Admin: 03/27/18 16:01 Dose: Not Given Miscellaneous (Ppn Per Pharmacy) 1 ea MC PRN PRN PRN Reason: PROTOCOL Stop: 05/21/18 14:48 Miscellaneous (Probiotic Screen) 1 ea MC PRN PRN PRN Reason: PROTOCOL Stop: 05/24/18 17:10 Nystatin (Mycostatin Cream) 1 appl TP DAILY [facility] Stop: 05/22/18 08:59 Last Admin: 03/27/18 09:07 Dose: 1 appl Petrolatum (Zinc Oxide) 1 appl TP HS [facility] Stop: 05/21/18 20:59 Last Admin: 03/27/18 22:37 Dose: 1 appl Sodium Phosphate (Fleet Enema) 135 ml RC Q96H PRN PRN Reason: IF DULCOLAX INEFFECTIVE Stop: 05/20/18 10:46 General: Alert, No acute distress HEENT: Atraumatic, Mucous membr. moist/pink Neck: Supple Cardiovascular: Regular rate Lungs: Clear to auscultation Abdomen: Bowel sounds, Soft, Other (GC fistula with erythema, bandaged. Scant leakage), no Tender, no Distended, no Rebound Extremities: no Edema Neurological: Sensation intact Skin: Rash Psych/Mental Status: Mood NL - Procedures Procedures: Procedures Procedure Code Date ASPIR CURETT UTERUS NEC 69.59 06/12/11 CHANGE FEEDING DEVICE IN UP INTEST TRACT, H[employer] MAN APPROACH [id number] 01/27/16 CHANGE GASTROSTOMY TUBE 10695 05/21/15 DILATION AND CURETTAGE 46098 06/12/11 EGD BIOPSY SINGLE/MULTIPLE 93768 07/15/16 EXCISION OF STOMACH, ENDO, DIAGN [id number] 07/15/16 INSERTION OF FEEDING DEVICE INTO STOMACH, ENDO [id number] 07/15/16 LAPARO PROC ABDM/PER/OMENT 87089 07/29/13 LAPAROSCOP APPENDECTOMY 47.01 07/29/13 LAPAROSCOP LYSIS-PERITONEAL ADHES 54.51 07/29/13 LAPAROSCOPY APPENDECTOMY 97199 07/29/13 REPLACE GASTROSTOMY TUBE 97.02 07/26/14 Assessment/Plan - Assessment Assessment: # G tube site cellulitis # Dysphagia # Developmental delay As of 03/25, the site looked worse thus the G tube was pulled. Will need to wait for the area to heal prior to inserting a new one Plan: - can likely insert NG tube in one or 2 days for feeding. Until then, PPN - new G tube will be inserted after the site heals. This can take up to 2 weeks - wound care consult - nystatin and zinc cream orderd - cont abx to complete a 7 day course
--- NOTE | 2018-03-28 09:31 | Internal Medicine Prog Note ---
Internal Medicine Subjective - Subjective Service Date: 03/28/17 Patient is:: awake, non-verbal Per staff patient has:: no adverse event (TPN STARTED) Internal Medicine Objective - Results Result Diagrams: 03/24/18 06:00 03/28/18 04:55 Recent Labs: Laboratory Last Values WBC 7.0 Th/cmm (4.8-10.8) 03/24/18 06:00 RBC 4.08 Mil/cmm (3.80-5.10) 03/24/18 06:00 Hgb 13.4 gm/dL (12-16) 03/24/18 06:00 Hct 40.7 % (41.0-60) L 03/24/18 06:00 MCV 99.8 fl (81-100) 03/24/18 06:00 MCH 32.9 pg (27.0-31.0) H 03/24/18 06:00 MCHC Differential 33.0 pg (28.0-36.0) 03/24/18 06:00 RDW 10.7 % (11.5-20.0) L 03/24/18 06:00 Plt Count 278 Th/cmm (150-400) 03/24/18 06:00 MPV 9.7 fl 03/24/18 06:00 Neutrophils % 60.8 % (40.0-80.0) 03/24/18 06:00 Lymphocytes % 25.6 % (20.0-50.0) 03/24/18 06:00 Monocytes % 9.0 % (2.0-10.0) 03/24/18 06:00 Eosinophils % 3.7 % (0.0-5.0) 03/24/18 06:00 Basophils % 0.9 % (0.0-2.0) 03/24/18 06:00 ESR 41 mm/hr (0-30) H 03/22/18 04:50 Sodium 140 mEq/L (136-145) 03/28/18 04:55 Potassium 4.5 mEq/L (3.5-5.1) 03/28/18 04:55 Chloride 104 mEq/L (98-107) 03/28/18 04:55 Carbon Dioxide 25.0 mEq/L (21.0-31.0) 03/28/18 04:55 Anion Gap 15.5 (7.0-16.0) 03/28/18 04:55 BUN 14 mg/dL (7-25) 03/28/18 04:55 Creatinine 0.4 mg/dL (0.6-1.2) L 03/28/18 04:55 Est GFR ( Amer) > 60.0 ml/min (>90) 03/28/18 04:55 Est GFR (Non-Af Amer) > 60.0 ml/min 03/28/18 04:55 BUN/Creatinine Ratio 35.0 03/28/18 04:55 Glucose 127 mg/dL (70-105) H 03/28/18 04:55 POC Glucose 108 MG/DL (70 - 105) H 03/28/18 04:37 Whole Bld Lactic Acid 1.20 mmol/L (0.60-1.99) 03/20/18 19:15 Calcium 9.0 mg/dL (8.6-10.3) 03/28/18 04:55 Phosphorus 3.6 mg/dL (2.5-5.0) 03/28/18 04:55 Magnesium 2.0 mg/dL (1.9-2.7) 03/28/18 04:55 Total Bilirubin 0.7 mg/dL (0.3-1.0) 03/20/18 19:15 AST 20 U/L (13-39) 03/20/18 19:15 ALT 25 U/L (7-52) 03/20/18 19:15 Alkaline Phosphatase 93 U/L (34-104) 03/20/18 19:15 C-Reactive Protein < 0.2 mg/dL (0.0-0.9) 03/22/18 04:50 Total Protein 7.3 gm/dL (6.0-8.3) 03/20/18 19:15 Albumin 3.6 gm/dL (3.7-5.3) L 03/20/18 19:15 Globulin 3.7 gm/dL 03/20/18 19:15 Albumin/Globulin Ratio 1.0 (1.0-1.8) 03/20/18 19:15 Prealbumin 13 mg/dL (10-36) 03/22/18 04:50 Triglycerides 60 mg/dL (<150) 03/21/18 04:45 Cholesterol 156 mg/dL (<200) 03/21/18 04:45 LDL Cholesterol Direct 87 mg/dL (75-193) 03/21/18 04:45 HDL Cholesterol 65 mg/dL (23-92) 03/21/18 04:45 TSH 1.11 uIU/ml (0.34-5.60) 03/21/18 04:45 Vancomycin Trough 14.4 ug/mL (5-10) H 03/24/18 20:28 - Physical Exam Vitals and I&O: Vital Signs Temp 97.2 F 03/28/18 08:00 Pulse 105 03/28/18 08:00 Resp 18 03/28/18 08:00 BP 151/76 03/28/18 08:00 Pulse Ox 98 03/28/18 08:00 Intake & Output 03/27/18 03/28/18 03/28/18 18:59 06:59 18:59 Intake Total 2014 1105 Balance 2014 1105 Weight (lbs) 40.234 kg 39.916 kg Intake: Intake, IV Amount 2014 205 Ciprofloxacin 200mg 100 100 Premix PB 200 mg In 100 ml @ 100 mls/hr IV Q12HR [facility] Rx#:[id number] Levetiracetam 500 mg In 105 105 Sodium Chloride 0.9% 100 ml @ 400 mls/hr IV Q12H [facility] Rx#:[id number] Multivitamin Inj 10 ml In 1810 Dextrose 70% 250 ml In Amino Acids 15% 400 ml In Water, Sterile 1,150 ml @ 75 mls/hr IV .Q24H [facility] Rx#:[id number] Oral 0 TPN/PPN 900 Other: # Voids 2 2 # Bowel Movements 0 Weight Source Bedscale Bedscale Active Medications: Current Medications Acetaminophen (Tylenol 650mg/20.3ml Suspension) 650 mg GT Q4HR PRN PRN Reason: Pain Or Fever >100 Stop: 05/20/18 10:46 Albuterol/Ipratropium (Duoneb Neb) 3 ml HHN [id number] PRN PRN Reason: sob Stop: 05/20/18 10:46 Last Admin: 03/26/18 19:00 Dose: 3 ml Bisacodyl (Dulcolax 10 Mg Supp) 10 mg RC Q96H PRN PRN Reason: Constipation Stop: 05/20/18 10:46 Last Admin: 03/22/18 19:42 Dose: 10 mg Carbamazepine (Tegretol) 400 mg GT Q12HR@0900,2100 [facility] Stop: 05/20/18 10:59 Last Admin: 03/27/18 22:29 Dose: Not Given Docusate Sodium (Colace) 200 mg GT BID [facility] Stop: 05/20/18 10:59 Last Admin: 03/27/18 16:01 Dose: Not Given Hydralazine HCl (Apresoline 20 Mg/Ml) 20 mg IV Q6HR PRN PRN Reason: SBP>160 Stop: 05/23/18 13:11 Levetiracetam 500 mg/ Sodium (Chloride) 105 mls @ 400 mls/hr IV Q12H [facility] Stop: 05/21/18 22:59 Last Infusion: 03/28/18 04:19 Dose: Infused Ciprofloxacin (Cipro 200mg Premix Pb) 200 mg in 100 mls @ 100 mls/hr IV Q12HR [facility] Stop: 05/23/18 13:29 Last Infusion: 03/28/18 00:55 Dose: Infused Multivitamins/Minerals 10 ml/Dextrose/ Amino Acids/Electrolytes/ Sterile Water 1,810 mls @ 75 mls/hr IV .Q24H [facility] Stop: 04/23/18 15:59 Last Admin: 03/27/18 15:43 Dose: 75 mls/hr Insulin Aspart (Novolog Insulin Sliding Scale) 0 units SUBQ Q6H [facility]; Protocol Stop: 05/22/18 15:59 Last Admin: 03/28/18 04:43 Dose: Not Given Lactobacillus Rhamnosus (Culturelle 15b) 1 each PO DAILY [facility] Stop: 05/25/18 08:59 Last Admin: 03/27/18 09:03 Dose: Not Given Lactulose (Cephulac) 10 gm GT DAILY PRN PRN Reason: Constipation Last Admin: 03/22/18 13:47 Dose: 10 gm Magnesium Hydroxide (Milk Of Magnesia) 30 ml GT Q72H PRN PRN Reason: Constipation Stop: 05/20/18 10:48 Metoprolol Tartrate (Lopressor) 12.5 mg GT QPM [facility] Stop: 05/20/18 16:59 Last Admin: 03/27/18 16:01 Dose: Not Given Miscellaneous (Ppn Per Pharmacy) 1 ea PRN PRN PRN Reason: PROTOCOL Stop: 05/21/18 14:48 Miscellaneous (Probiotic Screen) 1 ea MC PRN PRN PRN Reason: PROTOCOL Stop: 05/24/18 17:10 Nystatin (Mycostatin Cream) 1 appl TP DAILY [facility] Stop: 05/22/18 08:59 Last Admin: 03/27/18 09:07 Dose: 1 appl Petrolatum (Zinc Oxide) 1 appl TP HS [facility] Stop: 05/21/18 20:59 Last Admin: 03/27/18 22:37 Dose: 1 appl Sodium Phosphate (Fleet Enema) 135 ml RC Q96H PRN PRN Reason: IF DULCOLAX INEFFECTIVE Stop: 05/20/18 10:46 General: NAD HEENT: NC/AT, PERRLA, EOMI Neck: No JVD, no No thyromegaly Lungs: CTAB Cardiovascular: RRR Abdomen: soft, non-tender, +GT - redness, +GT - discharge Extremities: clear - Procedures Procedures: Procedures Procedure Code Date ASPIR CURETT UTERUS NEC 69.59 06/12/11 CHANGE FEEDING DEVICE IN UP INTEST TRACT, GENERAL STORE MANAGER APPROACH [id number] 01/27/16 CHANGE GASTROSTOMY TUBE 63734 05/21/15 DILATION AND CURETTAGE 79521 06/12/11 EGD BIOPSY SINGLE/MULTIPLE 08417 07/15/16 EXCISION OF STOMACH, ENDO, DIAGN [id number] 07/15/16 INSERTION OF FEEDING DEVICE INTO STOMACH, ENDO [id number] 07/15/16 [facility] PROC ABDM/PER/OMENT 86928 07/29/13 LAPAROSCOP APPENDECTOMY 47.01 07/29/13 LAPAROSCOP LYSIS-PERITONEAL ADHES 54.51 07/29/13 LAPAROSCOPY APPENDECTOMY 66738 07/29/13 REPLACE GASTROSTOMY TUBE 97.02 07/26/14 Internal Medicine Assmt/Plan - Assessment Assessment: 1. GTUBE MALFUNCTION WITH LEAKAGE 2. GT SITE CELLULITIS/DRAINAGE (GC FISTULA) 3. HISTORY OF DYSPHAGIA-PEG PLACEMENT 4. HX OF CONSTIPATION 5. HYPONATREMIA--RESOLVED 6. HX OF SEIZURE DISORDER-STABLE 7. HX OF INTELLECTUAL DISABILITY - Plan Plan: CONT WITH CURRENT TX PLAN AND MGT CONT TO HOLD GT FEEDS FOR NOW CONT WITH PPN CONT WITH IV ABXS, AND LOCAL WOUND CARE FOLLOW C/S, LABS GI FU Nutritional Asmnt/Malnutr-PDOC - Dietary Evaluation Malnutrition Findings (Please click <Entered> for more info): Nutritional Asmnt/Malnutrition Start: 03/21/18 13: 29 Text: Status: Complete Freq: Protocol: Document 03/21/18 13:29 JONY (Rec: 03/21/18 13:45 [id number] [id number]) Nutritional Asmnt/Malnutrition Patient General Information Nutritional Screening High Risk Consult Diagnosis displacement of Gtube, Gtube site cellulitis Pertinent Medical Hx/Surgical Hx HTN, PUD?GERD, seizures, hepatitis B and C, developmentally disabled, quadriplegic Subjective Information Consult reiceved for shayna score 11. Pt seen in bed, non verbal noted. Per nurse pt is tolerating current tube feeding. CALEB Rdz asked about TF rate since pt was receiving Jevity 1.5 at [facility] and our hospital only carries Jevity 1.2. Current Diet Order/ Nutrition Support Jevity 1.2 at 40ml/hr x 20hr, providing 960kcal and 44g protein Pertinent Medications oscal w/vit D, colace, nacl 0. 9%, vancomycin Pertinent Labs 2/4 Cl 108, Cr 0.4 2/3 Cr 0.4, glucose 109, alb 3 .6 Nutritional Hx/Data Height 1.6 m Height (Calculated Centimeters) 160.0 Current Weight (lbs) 45.359 kg Weight (Calculated Kilograms) 45.4 Weight (Calculated Grams) 42385.2 [place] Body Weight 115 Body Mass Index (BMI) 17.6 Weight Status Underweight GI Symptoms GI Symptoms None Last BM not indicated Usual diet at home Jevity 1.5 at 40ml/hr x 20hr at [facility] Skin Integrity/Comment: cellulitis reddened to Gtube site shayna 11 Estimated Nutritional Goals Calories/Kcals/Kg 25-30 IBW 52kg Kcals Calculated 7915-5438 Protein g/k-1.2 Protein Calculated 52-62 Fluid: ml 1300-1560ml (1ml/kcal) Nutritional Problem 1. Problem Problem inadequate intake from enteral feeding Etiology current TF regimen not meeting nutritional needs Signs/Symptoms: current TF providing 960kcal and 44g protein Malnutrition Related to Morbid Obesity Malnutrition related to morbid obesity No Intervention/Recommendation Comments 1. Recommend to increase TF rate to Jevity 1.2 at 55ml/hr x 20hr. It provides 1320kcal, 61g protein, 888ml free water, meeting 100% of nutritional needs. RN Kajal notified. 2. Monitor TF rate, tolerance, wt, skin integrity and labs 3. F/U as high risk in 2-3 days, 03/22-03/23 Expected Outcomes/Goals Expected Outcomes/Goals 1. Pt to meet at least 90% of nutritional needs via nutrition support with tolerance 2. Wt stability, skin to remain intact, labs to approach WNL.
[2018-03-28] MEDS: Docusate Sodium 100 mg/10 mL UD GT SCH ×4 (11:39→18:11)
[2018-03-28] MEDS: Nystatin Cream 100,000 u/gm Cream 15 gm TP SCH (11:43)
[2018-03-28] MEDS: INSULIN LISPRO SLIDING SCALE 100 UNITS/ML UNIT SUBQ SCH ×3 (12:00→23:58)
[2018-03-28] MEDS: carBAMazepine 200 mg/10 mL UDC GT SCH ×3 (17:50→22:03)
[2018-03-28] MEDS: PPN IV SCH (17:55)
[2018-03-28] MEDS: Lactobacillus Rhamnosus GG 15 Billion CFU CAP.SPRINK PO SCH ×2 (18:07→18:10)
[2018-03-28] MEDS: Zinc Oxide Ointment 60 gm TP SCH (21:46)
[2018-03-29] MEDS: INSULIN LISPRO SLIDING SCALE 100 UNITS/ML UNIT SUBQ SCH ×3 (04:35→21:18)
[2018-03-29 05:17] LABS: ALB/GLOB RATIO 0.9 (1.0-1.8); ALBUMIN 3.3 gm/dL (3.7-5.3); ALKALINE PHOSPHATASE 84 U/L (34-104); ANION GAP 13.6 (7.0-16.0); BILIRUBIN,DIRECT 0.47 mg/dL (0.0-0.2); BILIRUBIN,TOTAL 0.9 mg/dL (0.3-1.0); BUN - UREA NITROGEN 17 mg/dL (7-25); CALCIUM SERUM 8.9 mg/dL (8.6-10.3); CARBON DIOXIDE 27.8 mEq/L (21.0-31.0); CHLORIDE 104 mEq/L (98-107); CHOLESTEROL 140 mg/dL (<200); CREATININE - SERUM 0.3 mg/dL (0.6-1.2); GFR AFRICAN-AMERICAN > 60.0 ml/min (>90); GFR NON AFRICAN-AMERICAN > 60.0 ml/min; GLUCOSE 114 mg/dL (70-105); MAGNESIUM 1.8 mg/dL (1.9-2.7); POTASSIUM SERUM 4.4 mEq/L (3.5-5.1); SGOT 37 U/L (13-39); SGPT/ALT 56 U/L (7-52); SODIUM SERUM 141 mEq/L (136-145); TOTAL PROTEIN,SERUM 6.8 gm/dL (6.0-8.3); TRIGLYCERIDES 72 mg/dL (<150)
--- NOTE | 2018-03-29 09:05 | GI Progress Note ---
Subjective - Review of Systems Service Date: 03/29/18 Subjective: No overnight events Objective - Results Result Diagrams: 03/24/18 06:00 03/29/18 04:35 Recent Labs: Laboratory Last Values WBC 7.0 Th/cmm (4.8-10.8) 03/24/18 06:00 RBC 4.08 Mil/cmm (3.80-5.10) 03/24/18 06:00 Hgb 13.4 gm/dL (12-16) 03/24/18 06:00 Hct 40.7 % (41.0-60) L 03/24/18 06:00 MCV 99.8 fl (81-100) 03/24/18 06:00 MCH 32.9 pg (27.0-31.0) H 03/24/18 06:00 MCHC Differential 33.0 pg (28.0-36.0) 03/24/18 06:00 RDW 10.7 % (11.5-20.0) L 03/24/18 06:00 Plt Count 278 Th/cmm (150-400) 03/24/18 06:00 MPV 9.7 fl 03/24/18 06:00 Neutrophils % 60.8 % (40.0-80.0) 03/24/18 06:00 Lymphocytes % 25.6 % (20.0-50.0) 03/24/18 06:00 Monocytes % 9.0 % (2.0-10.0) 03/24/18 06:00 Eosinophils % 3.7 % (0.0-5.0) 03/24/18 06:00 Basophils % 0.9 % (0.0-2.0) 03/24/18 06:00 ESR 41 mm/hr (0-30) H 03/22/18 04:50 Sodium 141 mEq/L (136-145) 03/29/18 04:35 Potassium 4.4 mEq/L (3.5-5.1) 03/29/18 04:35 Chloride 104 mEq/L (98-107) 03/29/18 04:35 Carbon Dioxide 27.8 mEq/L (21.0-31.0) 03/29/18 04:35 Anion Gap 13.6 (7.0-16.0) 03/29/18 04:35 BUN 17 mg/dL (7-25) 03/29/18 04:35 Creatinine 0.3 mg/dL (0.6-1.2) L 03/29/18 04:35 Est GFR ( Amer) > 60.0 ml/min (>90) 03/29/18 04:35 Est GFR (Non-Af Amer) > 60.0 ml/min 03/29/18 04:35 BUN/Creatinine Ratio 56.7 03/29/18 04:35 Glucose 114 mg/dL (70-105) H 03/29/18 04:35 POC Glucose 102 MG/DL (70 - 105) 03/29/18 04:20 Whole Bld Lactic Acid 1.20 mmol/L (0.60-1.99) 03/20/18 19:15 Calcium 8.9 mg/dL (8.6-10.3) 03/29/18 04:35 Phosphorus 4.0 mg/dL (2.5-5.0) 03/29/18 04:35 Magnesium 1.8 mg/dL (1.9-2.7) L 03/29/18 04:35 Total Bilirubin 0.9 mg/dL (0.3-1.0) 03/29/18 04:35 Direct Bilirubin 0.47 mg/dL (0.0-0.2) H 03/29/18 04:35 AST 37 U/L (13-39) 03/29/18 04:35 ALT 56 U/L (7-52) H 03/29/18 04:35 Alkaline Phosphatase 84 U/L (34-104) 03/29/18 04:35 C-Reactive Protein < 0.2 mg/dL (0.0-0.9) 03/22/18 04:50 Total Protein 6.8 gm/dL (6.0-8.3) 03/29/18 04:35 Albumin 3.3 gm/dL (3.7-5.3) L 03/29/18 04:35 Globulin 3.5 gm/dL 03/29/18 04:35 Albumin/Globulin Ratio 0.9 (1.0-1.8) L 03/29/18 04:35 Prealbumin 13 mg/dL (10-36) 03/22/18 04:50 Triglycerides 72 mg/dL (<150) 03/29/18 04:35 Cholesterol 140 mg/dL (<200) 03/29/18 04:35 LDL Cholesterol Direct 87 mg/dL (75-193) 03/21/18 04:45 HDL Cholesterol 65 mg/dL (23-92) 03/21/18 04:45 TSH 1.11 uIU/ml (0.34-5.60) 03/21/18 04:45 Vancomycin Trough 14.4 ug/mL (5-10) H 03/24/18 20:28 - Physical Exam Vitals and I&O: Vital Signs Temp 98.2 F 03/29/18 04:00 Pulse 82 03/29/18 07:16 Resp 18 03/29/18 07:16 BP 128/67 03/29/18 04:00 Pulse Ox 97 03/29/18 07:16 Intake & Output 03/28/18 03/29/18 03/29/18 18:59 06:59 18:59 Intake Total 1910 100 Balance 1910 100 Weight (lbs) 39.916 kg Intake: Intake, IV Amount 1910 100 Ciprofloxacin 200mg 100 100 Premix PB 200 mg In 100 ml @ 100 mls/hr IV Q12HR [facility] Rx#:[id number] Multivitamin Inj 10 ml In 1810 Dextrose 70% 250 ml In Amino Acids 15% 400 ml In Water, Sterile 1,150 ml @ 75 mls/hr IV .Q24H [facility] Rx#:[id number] Other: # Voids 4 # Bowel Movements 0 Weight Source Bedscale Active Medications: Current Medications Acetaminophen (Tylenol 650mg/20.3ml Suspension) 650 mg GT Q4HR PRN PRN Reason: Pain Or Fever >100 Stop: 05/20/18 10:46 Albuterol/Ipratropium (Duoneb Neb) 3 ml HHN [id number] PRN PRN Reason: sob Stop: 05/20/18 10:46 Last Admin: 03/26/18 19:00 Dose: 3 ml Bisacodyl (Dulcolax 10 Mg Supp) 10 mg RC Q96H PRN PRN Reason: Constipation Stop: 05/20/18 10:46 Last Admin: 03/22/18 19:42 Dose: 10 mg Carbamazepine (Tegretol) 400 mg GT Q12HR@0900,2100 [facility] Stop: 05/20/18 10:59 Last Admin: 03/28/18 22:03 Dose: Not Given Docusate Sodium (Colace) 200 mg GT BID [facility] Stop: 05/20/18 10:59 Last Admin: 03/28/18 18:11 Dose: Not Given Hydralazine HCl (Apresoline 20 Mg/Ml) 20 mg IV Q6HR PRN PRN Reason: SBP>160 Stop: 05/23/18 13:11 Levetiracetam 500 mg/ Sodium (Chloride) 105 mls @ 400 mls/hr IV Q12H [facility] Stop: 05/21/18 22:59 Last Admin: 03/28/18 23:59 Dose: Not Given Ciprofloxacin (Cipro 200mg Premix Pb) 200 mg in 100 mls @ 100 mls/hr IV Q12HR [facility] Stop: 05/23/18 13:29 Last Infusion: 03/28/18 23:59 Dose: Infused Multivitamins/Minerals 10 ml/Dextrose/ Amino Acids/Electrolytes/ Sterile Water 1,810 mls @ 75 mls/hr IV .Q24H [facility] Stop: 04/23/18 15:59 Last Admin: 03/28/18 17:55 Dose: 75 mls/hr Insulin Human Lispro (Humalog Insulin Sliding Scale) 0 units SUBQ Q6H [facility]; Protocol Stop: 05/22/18 15:59 Last Admin: 03/29/18 04:35 Dose: Not Given Lactobacillus Rhamnosus (Culturelle 15b) 1 each PO DAILY [facility] Stop: 05/25/18 08:59 Last Admin: 03/28/18 18:10 Dose: Not Given Lactulose (Cephulac) 10 gm GT DAILY PRN PRN Reason: Constipation Last Admin: 03/22/18 13:47 Dose: 10 gm Magnesium Hydroxide (Milk Of Magnesia) 30 ml GT Q72H PRN PRN Reason: Constipation Stop: 05/20/18 10:48 Metoprolol Tartrate (Lopressor) 12.5 mg GT QPM [facility] Stop: 05/20/18 16:59 Last Admin: 03/28/18 18:08 Dose: Not Given Miscellaneous (Ppn Per Pharmacy) 1 ea PRN PRN PRN Reason: PROTOCOL Stop: 05/21/18 14:48 Miscellaneous (Probiotic Screen) 1 ea PRN PRN PRN Reason: PROTOCOL Stop: 05/24/18 17:10 Nystatin (Mycostatin Cream) 1 appl TP DAILY [facility] Stop: 05/22/18 08:59 Last Admin: 03/28/18 11:43 Dose: 1 appl Petrolatum (Zinc Oxide) 1 appl TP HS [facility] Stop: 05/21/18 20:59 Last Admin: 03/28/18 21:46 Dose: 1 appl Sodium Phosphate (Fleet Enema) 135 ml RC Q96H PRN PRN Reason: IF DULCOLAX INEFFECTIVE Stop: 05/20/18 10:46 General: Alert, No acute distress HEENT: Atraumatic, Mucous membr. moist/pink Neck: Supple Cardiovascular: Regular rate Lungs: Clear to auscultation Abdomen: Bowel sounds, Soft, Other (GC fistula with erythema, bandaged. Scant leakage), no Tender, no Distended, no Rebound Extremities: no Edema Neurological: Sensation intact Skin: Rash Psych/Mental Status: Mood NL - Procedures Procedures: Procedures Procedure Code Date ASPIR CURETT UTERUS NEC 69.59 06/12/11 CHANGE FEEDING DEVICE IN UP INTEST TRACT, [employer] APPROACH [id number] 01/27/16 CHANGE GASTROSTOMY TUBE 50542 05/21/15 DILATION AND CURETTAGE 99428 06/12/11 EGD BIOPSY SINGLE/MULTIPLE 34210 07/15/16 EXCISION OF STOMACH, ENDO, DIAGN [id number] 07/15/16 INSERTION OF FEEDING DEVICE INTO STOMACH, ENDO [id number] 07/15/16 LAPARO PROC ABDM/PER/OMENT 78027 07/29/13 LAPAROSCOP APPENDECTOMY 47.01 07/29/13 LAPAROSCOP LYSIS-PERITONEAL ADHES 54.51 07/29/13 LAPAROSCOPY APPENDECTOMY 63591 07/29/13 REPLACE GASTROSTOMY TUBE 97.02 07/26/14 Assessment/Plan - Assessment Assessment: # G tube site cellulitis # Dysphagia # Developmental delay As of 03/25, the site looked worse thus the G tube was pulled. Will need to wait for the area to heal prior to inserting a new one Plan: - can likely insert NG tube in one or 2 days for feeding. Until then, PPN - new G tube will be inserted after the site heals. This can take up to 2 weeks - wound care consult - nystatin and zinc cream orderd - cont abx to complete a 7 day course
[2018-03-29] MEDS: Ciprofloxacin 200mg Premix PB 200 MG/100 ML BAG IV SCH ×2 (09:46→20:30)
[2018-03-29] MEDS: carBAMazepine 200 mg/10 mL UDC GT SCH ×2 (09:49→21:13)
[2018-03-29] MEDS: Docusate Sodium 100 mg/10 mL UD GT SCH (09:50)
--- NOTE | 2018-03-29 10:22 | Internal Medicine Prog Note ---
Internal Medicine Subjective - Subjective Service Date: 03/29/18 (continues with PPN/s/p peripheral line change-yesterday) Patient seen and examined:: with staff Patient is:: awake, non-verbal Per staff patient has:: no adverse event (TPN STARTED) Internal Medicine Objective - Results Result Diagrams: 03/24/18 06:00 03/29/18 04:35 Recent Labs: Laboratory Last Values WBC 7.0 Th/cmm (4.8-10.8) 03/24/18 06:00 RBC 4.08 Mil/cmm (3.80-5.10) 03/24/18 06:00 Hgb 13.4 gm/dL (12-16) 03/24/18 06:00 Hct 40.7 % (41.0-60) L 03/24/18 06:00 MCV 99.8 fl (81-100) 03/24/18 06:00 MCH 32.9 pg (27.0-31.0) H 03/24/18 06:00 MCHC Differential 33.0 pg (28.0-36.0) 03/24/18 06:00 RDW 10.7 % (11.5-20.0) L 03/24/18 06:00 Plt Count 278 Th/cmm (150-400) 03/24/18 06:00 MPV 9.7 fl 03/24/18 06:00 Neutrophils % 60.8 % (40.0-80.0) 03/24/18 06:00 Lymphocytes % 25.6 % (20.0-50.0) 03/24/18 06:00 Monocytes % 9.0 % (2.0-10.0) 03/24/18 06:00 Eosinophils % 3.7 % (0.0-5.0) 03/24/18 06:00 Basophils % 0.9 % (0.0-2.0) 03/24/18 06:00 ESR 41 mm/hr (0-30) H 03/22/18 04:50 Sodium 141 mEq/L (136-145) 03/29/18 04:35 Potassium 4.4 mEq/L (3.5-5.1) 03/29/18 04:35 Chloride 104 mEq/L (98-107) 03/29/18 04:35 Carbon Dioxide 27.8 mEq/L (21.0-31.0) 03/29/18 04:35 Anion Gap 13.6 (7.0-16.0) 03/29/18 04:35 BUN 17 mg/dL (7-25) 03/29/18 04:35 Creatinine 0.3 mg/dL (0.6-1.2) L 03/29/18 04:35 Est GFR ( Amer) > 60.0 ml/min (>90) 03/29/18 04:35 Est GFR (Non-Af Amer) > 60.0 ml/min 03/29/18 04:35 BUN/Creatinine Ratio 56.7 03/29/18 04:35 Glucose 114 mg/dL (70-105) H 03/29/18 04:35 POC Glucose 103 MG/DL (70 - 105) 03/29/18 09:59 Whole Bld Lactic Acid 1.20 mmol/L (0.60-1.99) 03/20/18 19:15 Calcium 8.9 mg/dL (8.6-10.3) 03/29/18 04:35 Phosphorus 4.0 mg/dL (2.5-5.0) 03/29/18 04:35 Magnesium 1.8 mg/dL (1.9-2.7) L 03/29/18 04:35 Total Bilirubin 0.9 mg/dL (0.3-1.0) 03/29/18 04:35 Direct Bilirubin 0.47 mg/dL (0.0-0.2) H 03/29/18 04:35 AST 37 U/L (13-39) 03/29/18 04:35 ALT 56 U/L (7-52) H 03/29/18 04:35 Alkaline Phosphatase 84 U/L (34-104) 03/29/18 04:35 C-Reactive Protein < 0.2 mg/dL (0.0-0.9) 03/22/18 04:50 Total Protein 6.8 gm/dL (6.0-8.3) 03/29/18 04:35 Albumin 3.3 gm/dL (3.7-5.3) L 03/29/18 04:35 Globulin 3.5 gm/dL 03/29/18 04:35 Albumin/Globulin Ratio 0.9 (1.0-1.8) L 03/29/18 04:35 Prealbumin 13 mg/dL (10-36) 03/22/18 04:50 Triglycerides 72 mg/dL (<150) 03/29/18 04:35 Cholesterol 140 mg/dL (<200) 03/29/18 04:35 LDL Cholesterol Direct 87 mg/dL (75-193) 03/21/18 04:45 HDL Cholesterol 65 mg/dL (23-92) 03/21/18 04:45 TSH 1.11 uIU/ml (0.34-5.60) 03/21/18 04:45 Vancomycin Trough 14.4 ug/mL (5-10) H 03/24/18 20:28 - Physical Exam Vitals and I&O: Vital Signs Temp 98.2 F 03/29/18 04:00 Pulse 82 03/29/18 07:16 Resp 18 03/29/18 07:16 BP 128/67 03/29/18 04:00 Pulse Ox 97 03/29/18 07:16 Intake & Output 03/28/18 03/29/18 03/29/18 18:59 06:59 18:59 Intake Total 1910 100 Balance 1910 100 Weight (lbs) 39.916 kg Intake: Intake, IV Amount 1910 100 Ciprofloxacin 200mg 100 100 Premix PB 200 mg In 100 ml @ 100 mls/hr IV Q12HR [facility] Rx#:[id number] Multivitamin Inj 10 ml In 1810 Dextrose 70% 250 ml In Amino Acids 15% 400 ml In Water, Sterile 1,150 ml @ 75 mls/hr IV .Q24H [facility] Rx#:[id number] Other: # Voids 4 # Bowel Movements 0 Weight Source Bedscale Active Medications: Current Medications Acetaminophen (Tylenol 650mg/20.3ml Suspension) 650 mg GT Q4HR PRN PRN Reason: Pain Or Fever >100 Stop: 05/20/18 10:46 Albuterol/Ipratropium (Duoneb Neb) 3 ml HHN [id number] PRN PRN Reason: sob Stop: 05/20/18 10:46 Last Admin: 03/26/18 19:00 Dose: 3 ml Bisacodyl (Dulcolax 10 Mg Supp) 10 mg RC Q96H PRN PRN Reason: Constipation Stop: 05/20/18 10:46 Last Admin: 03/22/18 19:42 Dose: 10 mg Carbamazepine (Tegretol) 400 mg GT Q12HR@0900,2100 [facility] Stop: 05/20/18 10:59 Last Admin: 03/29/18 09:49 Dose: Not Given Docusate Sodium (Colace) 200 mg GT BID [facility] Stop: 05/20/18 10:59 Last Admin: 03/29/18 09:50 Dose: Not Given Hydralazine HCl (Apresoline 20 Mg/Ml) 20 mg IV Q6HR PRN PRN Reason: SBP>160 Stop: 05/23/18 13:11 Levetiracetam 500 mg/ Sodium (Chloride) 105 mls @ 400 mls/hr IV Q12H [facility] Stop: 05/21/18 22:59 Last Admin: 03/28/18 23:59 Dose: Not Given Ciprofloxacin (Cipro 200mg Premix Pb) 200 mg in 100 mls @ 100 mls/hr IV Q12HR [facility] Stop: 05/23/18 13:29 Last Admin: 03/29/18 09:46 Dose: 100 mls/hr Multivitamins/Minerals 10 ml/Dextrose/ Amino Acids/Electrolytes/ Sterile Water 1,810 mls @ 75 mls/hr IV .Q24H [facility] Stop: 04/23/18 15:59 Last Admin: 03/28/18 17:55 Dose: 75 mls/hr Insulin Human Lispro (Humalog Insulin Sliding Scale) 0 units SUBQ Q6H [facility]; Protocol Stop: 05/22/18 15:59 Last Admin: 03/29/18 04:35 Dose: Not Given Lactobacillus Rhamnosus (Culturelle 15b) 1 each PO DAILY [facility] Stop: 05/25/18 08:59 Last Admin: 03/28/18 18:10 Dose: Not Given Lactulose (Cephulac) 10 gm GT DAILY PRN PRN Reason: Constipation Last Admin: 03/22/18 13:47 Dose: 10 gm Magnesium Hydroxide (Milk Of Magnesia) 30 ml GT Q72H PRN PRN Reason: Constipation Stop: 05/20/18 10:48 Metoprolol Tartrate (Lopressor) 12.5 mg GT QPM [facility] Stop: 05/20/18 16:59 Last Admin: 03/28/18 18:08 Dose: Not Given Miscellaneous (Ppn Per Pharmacy) 1 ea MC PRN PRN PRN Reason: PROTOCOL Stop: 05/21/18 14:48 Miscellaneous (Probiotic Screen) 1 ea MC PRN PRN PRN Reason: PROTOCOL Stop: 05/24/18 17:10 Nystatin (Mycostatin Cream) 1 appl TP DAILY [facility] Stop: 05/22/18 08:59 Last Admin: 03/28/18 11:43 Dose: 1 appl Petrolatum (Zinc Oxide) 1 appl TP HS [facility] Stop: 05/21/18 20:59 Last Admin: 03/28/18 21:46 Dose: 1 appl Sodium Phosphate (Fleet Enema) 135 ml RC Q96H PRN PRN Reason: IF DULCOLAX INEFFECTIVE Stop: 05/20/18 10:46 General: thin, NAD HEENT: NC/AT, PERRLA, EOMI Neck: No JVD, no No thyromegaly Lungs: CTAB Cardiovascular: RRR Abdomen: soft, non-tender, +GT - redness, +GT - discharge Extremities: clear - Procedures Procedures: Procedures Procedure Code Date ASPIR CURETT UTERUS NEC 69.59 06/12/11 CHANGE FEEDING DEVICE IN UP INTEST TRACT, TOBACCO WETTER APPROACH [id number] 01/27/16 CHANGE GASTROSTOMY TUBE 34303 05/21/15 DILATION AND CURETTAGE 60186 06/12/11 EGD BIOPSY SINGLE/MULTIPLE 77473 07/15/16 EXCISION OF STOMACH, ENDO, DIAGN [id number] 07/15/16 INSERTION OF FEEDING DEVICE INTO STOMACH, ENDO [id number] 07/15/16 [facility]ARO PROC ABDM/PER/OMENT 94106 07/29/13 LAPAROSCOP APPENDECTOMY 47.01 07/29/13 LAPAROSCOP LYSIS-PERITONEAL ADHES 54.51 07/29/13 LAPAROSCOPY APPENDECTOMY 81230 07/29/13 REPLACE GASTROSTOMY TUBE 97.02 07/26/14 Internal Medicine Assmt/Plan - Assessment Assessment: 1. GTUBE MALFUNCTION WITH LEAKAGE 2. GT SITE CELLULITIS/DRAINAGE (GC FISTULA?) 3. HISTORY OF DYSPHAGIA-PEG PLACEMENT 4. HX OF CONSTIPATION 5. HYPONATREMIA--RESOLVED 6. HX OF SEIZURE DISORDER-STABLE 7. HX OF INTELLECTUAL DISABILITY - Plan Plan: CONT WITH CURRENT TX PLAN AND MGT CONT TO HOLD GT FEEDS FOR NOW CONT WITH PPN CONT WITH IV ABXS, AND LOCAL WOUND CARE FOLLOW C/S, LABS PICC LINE PLACEMENT OK TO TRANSFER TO SNF--SHORT-TERM STAY (FOR COMPLETION OF IV ABXS) GI FU Nutritional Asmnt/Malnutr-PDOC - Dietary Evaluation Malnutrition Findings (Please click <Entered> for more info): Nutritional Asmnt/Malnutrition Start: 03/21/18 13: 29 Text: Status: Complete Freq: Protocol: Document 03/21/18 13:29 LCHENG (Rec: 03/21/18 13:45 LCHENG [email or web address]) Nutritional Asmnt/Malnutrition Patient General Information Nutritional Screening High Risk Consult Diagnosis displacement of Gtube, Gtube site cellulitis Pertinent Medical Hx/Surgical Hx HTN, PUD?GERD, seizures, hepatitis B and C, developmentally disabled, quadriplegic Subjective Information Consult reiceved for shayna score 11. Pt seen in bed, non verbal noted. Per nurse pt is tolerating current tube feeding. CALEB Rdz asked about TF rate since pt was receiving Jevity 1.5 at [facility] and our hospital only carries Jevity 1.2. Current Diet Order/ Nutrition Support Jevity 1.2 at 40ml/hr x 20hr, providing 960kcal and 44g protein Pertinent Medications oscal w/vit D, colace, nacl 0. 9%, vancomycin Pertinent Labs 2/4 Cl 108, Cr 0.4 2/3 Cr 0.4, glucose 109, alb 3 .6 Nutritional Hx/Data Height 1.6 m Height (Calculated Centimeters) 160.0 Current Weight (lbs) 45.359 kg Weight (Calculated Kilograms) 45.4 Weight (Calculated Grams) 50802.2 [place] Body Weight 115 Body Mass Index (BMI) 17.6 Weight Status Underweight GI Symptoms GI Symptoms None Last BM not indicated Usual diet at home Jevity 1.5 at 40ml/hr x 20hr at [facility] Skin Integrity/Comment: cellulitis reddened to Gtube site shayna 11 Estimated Nutritional Goals Calories/Kcals/Kg 25-30 IBW 52kg Kcals Calculated 8155-9599 Protein g/k-1.2 Protein Calculated 52-62 Fluid: ml 1300-1560ml (1ml/kcal) Nutritional Problem 1. Problem Problem inadequate intake from enteral feeding Etiology current TF regimen not meeting nutritional needs Signs/Symptoms: current TF providing 960kcal and 44g protein Malnutrition Related to Morbid Obesity Malnutrition related to morbid obesity No Intervention/Recommendation Comments 1. Recommend to increase TF rate to Jevity 1.2 at 55ml/hr x 20hr. It provides 1320kcal, 61g protein, 888ml free water, meeting 100% of nutritional needs. CALEB Rdz notified. 2. Monitor TF rate, tolerance, wt, skin integrity and labs 3. F/U as high risk in 2-3 days, 2-2/ Expected Outcomes/Goals Expected Outcomes/Goals 1. Pt to meet at least 90% of nutritional needs via nutrition support with tolerance 2. Wt stability, skin to remain intact, labs to approach WNL.
[2018-03-29] MEDS: Lactobacillus Rhamnosus GG 15 Billion CFU CAP.SPRINK PO SCH (11:36)
[2018-03-29] MEDS: Zinc Oxide Ointment 60 gm TP SCH (21:19)
[2018-03-30] MEDS: INSULIN LISPRO SLIDING SCALE 100 UNITS/ML UNIT SUBQ SCH ×5 (04:42→22:48)
[2018-03-30 06:44] LABS: ALBUMIN 3.1 gm/dL (3.7-5.3); ALKALINE PHOSPHATASE 79 U/L (34-104); ANION GAP 12.5 (7.0-16.0); BILIRUBIN,TOTAL 0.5 mg/dL (0.3-1.0); BUN - UREA NITROGEN 15 mg/dL (7-25); CALCIUM SERUM 8.5 mg/dL (8.6-10.3); CARBON DIOXIDE 25.2 mEq/L (21.0-31.0); CHLORIDE 106 mEq/L (98-107); CREATININE - SERUM 0.3 mg/dL (0.6-1.2); GFR AFRICAN-AMERICAN > 60.0 ml/min (>90); GFR NON AFRICAN-AMERICAN > 60.0 ml/min; GLUCOSE 143 mg/dL (70-105); MAGNESIUM 1.9 mg/dL (1.9-2.7); PHOSPHOROUS 3.1 mg/dL (2.5-5.0); POTASSIUM SERUM 3.7 mEq/L (3.5-5.1); SGOT 32 U/L (13-39); SGPT/ALT 46 U/L (7-52); SODIUM SERUM 140 mEq/L (136-145); TOTAL PROTEIN,SERUM 6.3 gm/dL (6.0-8.3)
[2018-03-30] MEDS: Ciprofloxacin 200mg Premix PB 200 MG/100 ML BAG IV SCH ×2 (08:13→20:28)
[2018-03-30] MEDS: carBAMazepine 200 mg/10 mL UDC GT SCH ×2 (08:19→20:29)
--- NOTE | 2018-03-30 08:25 | Diagnostic Imaging Report ---
Exam: Chest x-ray HISTORY: PICC line placement COMPARISON 03/22/2018 Frontal examination of chest demonstrates left-sided PICC line terminates in superior vena cava in most likely entering the right atrium. There is evidence for severe scoliosis thoracic spine. No acute pulmonic infiltrates are noted mild congestion cannot be excluded. Pression: Left-sided PICC line terminates in the distal superior vena cava most likely entering the right atrium, pullback 3 cm recommended. Mild congestion cannot be excluded.
--- NOTE | 2018-03-30 09:00 | GI Progress Note ---
Subjective - Review of Systems Service Date: 03/30/18 Subjective: GC fistula site appears a bit worse today, some leakage noted Objective - Results Result Diagrams: 03/24/18 06:00 03/30/18 05:25 Recent Labs: Laboratory Last Values WBC 7.0 Th/cmm (4.8-10.8) 03/24/18 06:00 RBC 4.08 Mil/cmm (3.80-5.10) 03/24/18 06:00 Hgb 13.4 gm/dL (12-16) 03/24/18 06:00 Hct 40.7 % (41.0-60) L 03/24/18 06:00 MCV 99.8 fl (81-100) 03/24/18 06:00 MCH 32.9 pg (27.0-31.0) H 03/24/18 06:00 MCHC Differential 33.0 pg (28.0-36.0) 03/24/18 06:00 RDW 10.7 % (11.5-20.0) L 03/24/18 06:00 Plt Count 278 Th/cmm (150-400) 03/24/18 06:00 MPV 9.7 fl 03/24/18 06:00 Neutrophils % 60.8 % (40.0-80.0) 03/24/18 06:00 Lymphocytes % 25.6 % (20.0-50.0) 03/24/18 06:00 Monocytes % 9.0 % (2.0-10.0) 03/24/18 06:00 Eosinophils % 3.7 % (0.0-5.0) 03/24/18 06:00 Basophils % 0.9 % (0.0-2.0) 03/24/18 06:00 ESR 41 mm/hr (0-30) H 03/22/18 04:50 Sodium 140 mEq/L (136-145) 03/30/18 05:25 Potassium 3.7 mEq/L (3.5-5.1) 03/30/18 05:25 Chloride 106 mEq/L (98-107) 03/30/18 05:25 Carbon Dioxide 25.2 mEq/L (21.0-31.0) 03/30/18 05:25 Anion Gap 12.5 (7.0-16.0) 03/30/18 05:25 BUN 15 mg/dL (7-25) 03/30/18 05:25 Creatinine 0.3 mg/dL (0.6-1.2) L 03/30/18 05:25 Est GFR ( Amer) > 60.0 ml/min (>90) 03/30/18 05:25 Est GFR (Non-Af Amer) > 60.0 ml/min 03/30/18 05:25 BUN/Creatinine Ratio 50.0 03/30/18 05:25 Glucose 143 mg/dL (70-105) H 03/30/18 05:25 POC Glucose 107 MG/DL (70 - 105) H 03/30/18 04:03 Whole Bld Lactic Acid 1.20 mmol/L (0.60-1.99) 03/20/18 19:15 Calcium 8.5 mg/dL (8.6-10.3) L 03/30/18 05:25 Phosphorus 3.1 mg/dL (2.5-5.0) 03/30/18 05:25 Magnesium 1.9 mg/dL (1.9-2.7) 03/30/18 05:25 Total Bilirubin 0.5 mg/dL (0.3-1.0) 03/30/18 05:25 Direct Bilirubin 0.47 mg/dL (0.0-0.2) H 03/29/18 04:35 AST 32 U/L (13-39) 03/30/18 05:25 ALT 46 U/L (7-52) 03/30/18 05:25 Alkaline Phosphatase 79 U/L (34-104) 03/30/18 05:25 C-Reactive Protein < 0.2 mg/dL (0.0-0.9) 03/22/18 04:50 Total Protein 6.3 gm/dL (6.0-8.3) 03/30/18 05:25 Albumin 3.1 gm/dL (3.7-5.3) L 03/30/18 05:25 Globulin 3.2 gm/dL 03/30/18 05:25 Albumin/Globulin Ratio 1.0 (1.0-1.8) 03/30/18 05:25 Prealbumin 13 mg/dL (10-36) 03/22/18 04:50 Triglycerides 72 mg/dL (<150) 03/29/18 04:35 Cholesterol 140 mg/dL (<200) 03/29/18 04:35 LDL Cholesterol Direct 87 mg/dL (75-193) 03/21/18 04:45 HDL Cholesterol 65 mg/dL (23-92) 03/21/18 04:45 TSH 1.11 uIU/ml (0.34-5.60) 03/21/18 04:45 Vancomycin Trough 14.4 ug/mL (5-10) H 03/24/18 20:28 - Physical Exam Vitals and I&O: Vital Signs Temp 96.1 F 03/30/18 08:23 Pulse 81 03/30/18 08:23 Resp 18 03/30/18 08:23 BP 129/75 03/30/18 08:23 Pulse Ox 100 03/30/18 08:23 Intake & Output 03/29/18 03/30/18 03/30/18 18:59 06:59 18:59 Intake Total 205 205 Balance 205 205 Weight (lbs) 39.916 kg Intake: Intake, IV Amount 205 205 Ciprofloxacin 200mg 100 100 Premix PB 200 mg In 100 ml @ 100 mls/hr IV Q12HR [facility] Rx#:[id number] Levetiracetam 500 mg In 105 105 Sodium Chloride 0.9% 100 ml @ 400 mls/hr IV Q12H [facility] Rx#:[id number] Oral 0 Other: # Voids 3 # Bowel Movements 0 Weight Source Bedscale Active Medications: Current Medications Acetaminophen (Tylenol 650mg/20.3ml Suspension) 650 mg GT Q4HR PRN PRN Reason: Pain Or Fever >100 Stop: 05/20/18 10:46 Albuterol/Ipratropium (Duoneb Neb) 3 ml HHN [id number] PRN PRN Reason: sob Stop: 05/20/18 10:46 Last Admin: 03/26/18 19:00 Dose: 3 ml Bisacodyl (Dulcolax 10 Mg Supp) 10 mg RC Q96H PRN PRN Reason: Constipation Stop: 05/20/18 10:46 Last Admin: 03/22/18 19:42 Dose: 10 mg Carbamazepine (Tegretol) 400 mg GT Q12HR@0900,2100 [facility] Stop: 05/20/18 10:59 Last Admin: 03/30/18 08:19 Dose: Not Given Docusate Sodium (Colace) 200 mg GT BID [facility] [place] Stop: 05/20/18 10:59 Last Admin: 03/29/18 09:50 Dose: Not Given Hydralazine HCl (Apresoline 20 Mg/Ml) 20 mg IV Q6HR PRN PRN Reason: SBP>160 Stop: 05/23/18 13:11 Levetiracetam 500 mg/ Sodium (Chloride) 105 mls @ 400 mls/hr IV Q12H [facility] Stop: 05/21/18 22:59 Last Infusion: 03/30/18 00:02 Dose: Infused Ciprofloxacin (Cipro 200mg Premix Pb) 200 mg in 100 mls @ 100 mls/hr IV Q12HR [facility] [place] Stop: 05/23/18 13:29 Last Admin: 03/30/18 08:13 Dose: 100 mls/hr Multivitamins/Minerals 10 ml/Dextrose/ Amino Acids/Electrolytes/ Sterile Water 1,810 mls @ 75 mls/hr IV .Q24H [facility] [place] Stop: 04/23/18 15:59 Last Admin: 03/28/18 17:55 Dose: 75 mls/hr Insulin Human Lispro (Humalog Insulin Sliding Scale) 0 units SUBQ Q6H [facility] [place]; Protocol Stop: 05/22/18 15:59 Last Admin: 03/30/18 04:42 Dose: Not Given Lactobacillus Rhamnosus (Culturelle 15b) 1 each PO DAILY [facility] [place] Stop: 05/25/18 08:59 Last Admin: 03/29/18 11:36 Dose: Not Given Lactulose (Cephulac) 10 gm GT DAILY PRN PRN Reason: Constipation Last Admin: 03/22/18 13:47 Dose: 10 gm Magnesium Hydroxide (Milk Of Magnesia) 30 ml GT Q72H PRN PRN Reason: Constipation Stop: 05/20/18 10:48 Metoprolol Tartrate (Lopressor) 12.5 mg GT QPM [facility] Stop: 05/20/18 16:59 Last Admin: 03/28/18 18:08 Dose: Not Given Miscellaneous (Ppn Per Pharmacy) 1 ea PRN PRN PRN Reason: PROTOCOL Stop: 05/21/18 14:48 Miscellaneous (Probiotic Screen) 1 ea PRN PRN PRN Reason: PROTOCOL Stop: 05/24/18 17:10 Nystatin (Mycostatin Cream) 1 appl TP DAILY [facility] Stop: 05/22/18 08:59 Last Admin: 03/28/18 11:43 Dose: 1 appl Petrolatum (Zinc Oxide) 1 appl TP HS [facility] Stop: 05/21/18 20:59 Last Admin: 03/29/18 21:19 Dose: 1 appl Sodium Phosphate (Fleet Enema) 135 ml RC Q96H PRN PRN Reason: IF DULCOLAX INEFFECTIVE Stop: 05/20/18 10:46 General: Alert, No acute distress HEENT: Atraumatic, Mucous membr. moist/pink Neck: Supple Cardiovascular: Regular rate Lungs: Clear to auscultation Abdomen: Bowel sounds, Soft, Other (GC fistula with erythema, bandaged. Scant leakage), no Tender, no Distended, no Rebound Extremities: no Edema Neurological: Sensation intact Skin: Rash Psych/Mental Status: Mood NL - Procedures Procedures: Procedures Procedure Code Date ASPIR CURETT UTERUS NEC 69.59 06/12/11 CHANGE FEEDING DEVICE IN UP INTEST TRACT, INSTANT PRINTER OPERATOR APPROACH [id number] 01/27/16 CHANGE GASTROSTOMY TUBE 60950 05/21/15 DILATION AND CURETTAGE 16491 06/12/11 EGD BIOPSY SINGLE/MULTIPLE 77585 07/15/16 EXCISION OF STOMACH, ENDO, DIAGN [id number] 07/15/16 INSERTION OF FEEDING DEVICE INTO STOMACH, ENDO [id number] 07/15/16 LAP[facility]O PROC ABDM/PER/OMENT 32582 07/29/13 LAPAROSCOP APPENDECTOMY 47.01 07/29/13 LAPAROSCOP LYSIS-PERITONEAL ADHES 54.51 07/29/13 LAPAROSCOPY APPENDECTOMY 51808 07/29/13 REPLACE GASTROSTOMY TUBE 97.02 07/26/14 Assessment/Plan - Assessment Assessment: # G tube site cellulitis # Dysphagia # Developmental delay As of 03/25, the site looked worse thus the G tube was pulled. Will need to wait for the area to heal prior to inserting a new one On 03/30, there is still erythema and some leakage from the area. Unclear if proper wound care is being applied to this area. Plan: - ideally would want to put NG tube for feeding, but there is still leakage from the GC fistula. I stressed the importance of wound care to nursing staff - new G tube will be inserted after the site heals. This can take up to 2 weeks - wound care consult - nystatin and zinc cream orderd - cont abx to complete a 7 day course
--- NOTE | 2018-03-30 09:34 | Internal Medicine Prog Note ---
Internal Medicine Subjective - Subjective Service Date: 03/30/18 (S/P PICC LINE PLACEMENT YESTERDAY (lue)) Patient is:: awake, non-verbal Per staff patient has:: no adverse event (TPN STARTED) Internal Medicine Objective - Results Result Diagrams: 03/24/18 06:00 03/30/18 05:25 Recent Labs: Laboratory Last Values WBC 7.0 Th/cmm (4.8-10.8) 03/24/18 06:00 RBC 4.08 Mil/cmm (3.80-5.10) 03/24/18 06:00 Hgb 13.4 gm/dL (12-16) 03/24/18 06:00 Hct 40.7 % (41.0-60) L 03/24/18 06:00 MCV 99.8 fl (81-100) 03/24/18 06:00 MCH 32.9 pg (27.0-31.0) H 03/24/18 06:00 MCHC Differential 33.0 pg (28.0-36.0) 03/24/18 06:00 RDW 10.7 % (11.5-20.0) L 03/24/18 06:00 Plt Count 278 Th/cmm (150-400) 03/24/18 06:00 MPV 9.7 fl 03/24/18 06:00 Neutrophils % 60.8 % (40.0-80.0) 03/24/18 06:00 Lymphocytes % 25.6 % (20.0-50.0) 03/24/18 06:00 Monocytes % 9.0 % (2.0-10.0) 03/24/18 06:00 Eosinophils % 3.7 % (0.0-5.0) 03/24/18 06:00 Basophils % 0.9 % (0.0-2.0) 03/24/18 06:00 ESR 41 mm/hr (0-30) H 03/22/18 04:50 Sodium 140 mEq/L (136-145) 03/30/18 05:25 Potassium 3.7 mEq/L (3.5-5.1) 03/30/18 05:25 Chloride 106 mEq/L (98-107) 03/30/18 05:25 Carbon Dioxide 25.2 mEq/L (21.0-31.0) 03/30/18 05:25 Anion Gap 12.5 (7.0-16.0) 03/30/18 05:25 BUN 15 mg/dL (7-25) 03/30/18 05:25 Creatinine 0.3 mg/dL (0.6-1.2) L 03/30/18 05:25 Est GFR ( Amer) > 60.0 ml/min (>90) 03/30/18 05:25 Est GFR (Non-Af Amer) > 60.0 ml/min 03/30/18 05:25 BUN/Creatinine Ratio 50.0 03/30/18 05:25 Glucose 143 mg/dL (70-105) H 03/30/18 05:25 POC Glucose 107 MG/DL (70 - 105) H 03/30/18 04:03 Whole Bld Lactic Acid 1.20 mmol/L (0.60-1.99) 03/20/18 19:15 Calcium 8.5 mg/dL (8.6-10.3) L 03/30/18 05:25 Phosphorus 3.1 mg/dL (2.5-5.0) 03/30/18 05:25 Magnesium 1.9 mg/dL (1.9-2.7) 03/30/18 05:25 Total Bilirubin 0.5 mg/dL (0.3-1.0) 03/30/18 05:25 Direct Bilirubin 0.47 mg/dL (0.0-0.2) H 03/29/18 04:35 AST 32 U/L (13-39) 03/30/18 05:25 ALT 46 U/L (7-52) 03/30/18 05:25 Alkaline Phosphatase 79 U/L (34-104) 03/30/18 05:25 C-Reactive Protein < 0.2 mg/dL (0.0-0.9) 03/22/18 04:50 Total Protein 6.3 gm/dL (6.0-8.3) 03/30/18 05:25 Albumin 3.1 gm/dL (3.7-5.3) L 03/30/18 05:25 Globulin 3.2 gm/dL 03/30/18 05:25 Albumin/Globulin Ratio 1.0 (1.0-1.8) 03/30/18 05:25 Prealbumin 14 mg/dL (10-36) 03/29/18 04:35 Triglycerides 72 mg/dL (<150) 03/29/18 04:35 Cholesterol 140 mg/dL (<200) 03/29/18 04:35 LDL Cholesterol Direct 87 mg/dL (75-193) 03/21/18 04:45 HDL Cholesterol 65 mg/dL (23-92) 03/21/18 04:45 TSH 1.11 uIU/ml (0.34-5.60) 03/21/18 04:45 Vancomycin Trough 14.4 ug/mL (5-10) H 03/24/18 20:28 - Physical Exam Vitals and I&O: Vital Signs Temp 96.1 F 03/30/18 08:23 Pulse 81 03/30/18 08:23 Resp 18 03/30/18 08:23 BP 129/75 03/30/18 08:23 Pulse Ox 100 03/30/18 08:23 Intake & Output 03/29/18 03/30/18 03/30/18 18:59 06:59 18:59 Intake Total 205 205 Balance 205 205 Weight (lbs) 39.916 kg Intake: Intake, IV Amount 205 205 Ciprofloxacin 200mg 100 100 Premix PB 200 mg In 100 ml @ 100 mls/hr IV Q12HR COUNT INCLUDES THE [facility] Rx#:[id number] Levetiracetam 500 mg In 105 105 Sodium Chloride 0.9% 100 ml @ 400 mls/hr IV Q12H COUNT INCLUDES THE [facility] Rx#:[id number] Oral 0 Other: # Voids 3 # Bowel Movements 0 Weight Source Bedscale Active Medications: Current Medications Acetaminophen (Tylenol 650mg/20.3ml Suspension) 650 mg GT Q4HR PRN PRN Reason: Pain Or Fever >100 Stop: 05/20/18 10:46 Albuterol/Ipratropium (Duoneb Neb) 3 ml HHN [id number] PRN PRN Reason: sob Stop: 05/20/18 10:46 Last Admin: 03/26/18 19:00 Dose: 3 ml Bisacodyl (Dulcolax 10 Mg Supp) 10 mg RC Q96H PRN PRN Reason: Constipation Stop: 05/20/18 10:46 Last Admin: 03/22/18 19:42 Dose: 10 mg Carbamazepine (Tegretol) 400 mg GT Q12HR@0900,2100 COUNT INCLUDES THE [facility] Stop: 05/20/18 10:59 Last Admin: 03/30/18 08:19 Dose: Not Given Docusate Sodium (Colace) 200 mg GT BID COUNT INCLUDES THE [facility] Stop: 05/20/18 10:59 Last Admin: 03/29/18 09:50 Dose: Not Given Hydralazine HCl (Apresoline 20 Mg/Ml) 20 mg IV Q6HR PRN PRN Reason: SBP>160 Stop: 05/23/18 13:11 Levetiracetam 500 mg/ Sodium (Chloride) 105 mls @ 400 mls/hr IV Q12H COUNT INCLUDES THE [facility] Stop: 05/21/18 22:59 Last Infusion: 03/30/18 00:02 Dose: Infused Ciprofloxacin (Cipro 200mg Premix Pb) 200 mg in 100 mls @ 100 mls/hr IV Q12HR COUNT INCLUDES THE [facility] Stop: 05/23/18 13:29 Last Admin: 03/30/18 08:13 Dose: 100 mls/hr Multivitamins/Minerals 10 ml/Dextrose/ Amino Acids/Electrolytes/ Sterile Water 1,810 mls @ 75 mls/hr IV .Q24H COUNT INCLUDES THE [facility] Stop: 04/23/18 15:59 Last Admin: 03/28/18 17:55 Dose: 75 mls/hr Insulin Human Lispro (Humalog Insulin Sliding Scale) 0 units SUBQ Q6H COUNT INCLUDES THE [facility]; Protocol Stop: 05/22/18 15:59 Last Admin: 03/30/18 04:42 Dose: Not Given Lactobacillus Rhamnosus (Culturelle 15b) 1 each PO DAILY COUNT INCLUDES THE [facility] Stop: 05/25/18 08:59 Last Admin: 03/29/18 11:36 Dose: Not Given Lactulose (Cephulac) 10 gm GT DAILY PRN PRN Reason: Constipation Last Admin: 03/22/18 13:47 Dose: 10 gm Magnesium Hydroxide (Milk Of Magnesia) 30 ml GT Q72H PRN PRN Reason: Constipation Stop: 05/20/18 10:48 Metoprolol Tartrate (Lopressor) 12.5 mg GT QPM [facility] Stop: 05/20/18 16:59 Last Admin: 03/28/18 18:08 Dose: Not Given Miscellaneous (Ppn Per Pharmacy) 1 ea MC PRN PRN PRN Reason: PROTOCOL Stop: 05/21/18 14:48 Miscellaneous (Probiotic Screen) 1 ea MC PRN PRN PRN Reason: PROTOCOL Stop: 05/24/18 17:10 Nystatin (Mycostatin Cream) 1 appl TP DAILY [facility] Stop: 05/22/18 08:59 Last Admin: 03/28/18 11:43 Dose: 1 appl Petrolatum (Zinc Oxide) 1 appl TP HS [facility] Stop: 05/21/18 20:59 Last Admin: 03/29/18 21:19 Dose: 1 appl Sodium Phosphate (Fleet Enema) 135 ml RC Q96H PRN PRN Reason: IF DULCOLAX INEFFECTIVE Stop: 05/20/18 10:46 General: thin, NAD HEENT: NC/AT, PERRLA, EOMI Neck: No JVD, no No thyromegaly Lungs: CTAB Cardiovascular: RRR Abdomen: soft, non-tender, +GT - redness, +GT - discharge Extremities: clear - Procedures Procedures: Procedures Procedure Code Date ASPIR CURETT UTERUS NEC 69.59 06/12/11 CHANGE FEEDING DEVICE IN UP INTEST TRACT, DIRECTOR OF CONTRACTS APPROACH [id number] 01/27/16 CHANGE GASTROSTOMY TUBE 04162 05/21/15 DILATION AND CURETTAGE 35901 06/12/11 EGD BIOPSY SINGLE/MULTIPLE 26831 07/15/16 EXCISION OF STOMACH, ENDO, DIAGN [id number] 07/15/16 INSERTION OF FEEDING DEVICE INTO STOMACH, ENDO [id number] 07/15/16 [facility] PROC ABDM/PER/OMENT 01107 07/29/13 LAPAROSCOP APPENDECTOMY 47.01 07/29/13 LAPAROSCOP LYSIS-PERITONEAL ADHES 54.51 07/29/13 LAPAROSCOPY APPENDECTOMY 86659 07/29/13 REPLACE GASTROSTOMY TUBE 97.02 07/26/14 Internal Medicine Assmt/Plan - Assessment Assessment: 1. GTUBE MALFUNCTION WITH LEAKAGE 2. GT SITE CELLULITIS/DRAINAGE (GC FISTULA?) 3. HISTORY OF DYSPHAGIA-PEG PLACEMENT 4. HX OF CONSTIPATION 5. HYPONATREMIA--RESOLVED 6. HX OF SEIZURE DISORDER-STABLE 7. HX OF INTELLECTUAL DISABILITY 8. S/P PICC LINE PLACEMENT - Plan Plan: CONT WITH CURRENT TX PLAN AND MGT CONT TO HOLD GT FEEDS FOR NOW CONT WITH TPN CONT WITH IV ABXS, AND LOCAL WOUND CARE FOLLOW C/S, LABS OK TO TRANSFER TO SNF ONCE BED AVAILABLE--SHORT-TERM STAY (FOR COMPLETION OF IV ABXS) GI FU Nutritional Asmnt/Malnutr-PDOC - Dietary Evaluation Malnutrition Findings (Please click <Entered> for more info): Nutritional Asmnt/Malnutrition Start: 03/21/18 13: 29 Text: Status: Complete Freq: Protocol: Document 03/21/18 13:29 GREYLIZBETH (Rec: 03/21/18 13:45 LCILZBETH [email or web address]) Nutritional Asmnt/Malnutrition Patient General Information Nutritional Screening High Risk Consult Diagnosis displacement of Gtube, Gtube site cellulitis Pertinent Medical Hx/Surgical Hx HTN, PUD?GERD, seizures, hepatitis B and C, developmentally disabled, quadriplegic Subjective Information Consult reiceved for shayna score 11. Pt seen in bed, non verbal noted. Per nurse pt is tolerating current tube feeding. CALEB Rdz asked about TF rate since pt was receiving Jevity 1.5 at shelter and our hospital only carries Jevity 1.2. Current Diet Order/ Nutrition Support Jevity 1.2 at 40ml/hr x 20hr, providing 960kcal and 44g protein Pertinent Medications oscal w/vit D, colace, nacl 0. 9%, vancomycin Pertinent Labs 2/4 Cl 108, Cr 0.4 2/3 Cr 0.4, glucose 109, alb 3 .6 Nutritional Hx/Data Height 1.6 m Height (Calculated Centimeters) 160.0 Current Weight (lbs) 45.359 kg Weight (Calculated Kilograms) 45.4 Weight (Calculated Grams) 19881.2 [place] Body Weight 115 Body Mass Index (BMI) 17.6 Weight Status Underweight GI Symptoms GI Symptoms None Last BM not indicated Usual diet at home Jevity 1.5 at 40ml/hr x 20hr at [facility] Skin Integrity/Comment: cellulitis reddened to Gtube site shayna 11 Estimated Nutritional Goals Calories/Kcals/Kg 25-30 IBW 52kg Kcals Calculated 9585-6766 Protein g/k-1.2 Protein Calculated 52-62 Fluid: ml 1300-1560ml (1ml/kcal) Nutritional Problem 1. Problem Problem inadequate intake from enteral feeding Etiology current TF regimen not meeting nutritional needs Signs/Symptoms: current TF providing 960kcal and 44g protein Malnutrition Related to Morbid Obesity Malnutrition related to morbid obesity No Intervention/Recommendation Comments 1. Recommend to increase TF rate to Jevity 1.2 at 55ml/hr x 20hr. It provides 1320kcal, 61g protein, 888ml free water, meeting 100% of nutritional needs. RN Kaajl notified. 2. Monitor TF rate, tolerance, wt, skin integrity and labs 3. F/U as high risk in 2-3 days, 2/5-2/ Expected Outcomes/Goals Expected Outcomes/Goals 1. Pt to meet at least 90% of nutritional needs via nutrition support with tolerance 2. Wt stability, skin to remain intact, labs to approach WNL.
[2018-03-30] MEDS: Nystatin Cream 100,000 u/gm Cream 15 gm TP SCH (15:26)
[2018-03-30] MEDS: Lactobacillus Rhamnosus GG 15 Billion CFU CAP.SPRINK PO SCH (15:26)
[2018-03-30] MEDS: PPN IV SCH (18:07)
[2018-03-30] MEDS: Zinc Oxide Ointment 60 gm TP SCH (20:30)
[2018-03-31] MEDS: INSULIN LISPRO SLIDING SCALE 100 UNITS/ML UNIT SUBQ SCH ×4 (04:28→22:32)
[2018-03-31] MEDS: Albuterol/Ipratropium Neb 3 ML AERS HHN PRN ×2 (07:46→16:12)
--- NOTE | 2018-03-31 08:14 | GI Progress Note ---
Subjective - Review of Systems Service Date: 03/31/18 Subjective: Erythema and leakage around the GC fistula Objective - Results Result Diagrams: 03/24/18 06:00 03/30/18 05:25 Recent Labs: Laboratory Last Values WBC 7.0 Th/cmm (4.8-10.8) 03/24/18 06:00 RBC 4.08 Mil/cmm (3.80-5.10) 03/24/18 06:00 Hgb 13.4 gm/dL (12-16) 03/24/18 06:00 Hct 40.7 % (41.0-60) L 03/24/18 06:00 MCV 99.8 fl (81-100) 03/24/18 06:00 MCH 32.9 pg (27.0-31.0) H 03/24/18 06:00 MCHC Differential 33.0 pg (28.0-36.0) 03/24/18 06:00 RDW 10.7 % (11.5-20.0) L 03/24/18 06:00 Plt Count 278 Th/cmm (150-400) 03/24/18 06:00 MPV 9.7 fl 03/24/18 06:00 Neutrophils % 60.8 % (40.0-80.0) 03/24/18 06:00 Lymphocytes % 25.6 % (20.0-50.0) 03/24/18 06:00 Monocytes % 9.0 % (2.0-10.0) 03/24/18 06:00 Eosinophils % 3.7 % (0.0-5.0) 03/24/18 06:00 Basophils % 0.9 % (0.0-2.0) 03/24/18 06:00 ESR 41 mm/hr (0-30) H 03/22/18 04:50 Sodium 140 mEq/L (136-145) 03/30/18 05:25 Potassium 3.7 mEq/L (3.5-5.1) 03/30/18 05:25 Chloride 106 mEq/L (98-107) 03/30/18 05:25 Carbon Dioxide 25.2 mEq/L (21.0-31.0) 03/30/18 05:25 Anion Gap 12.5 (7.0-16.0) 03/30/18 05:25 BUN 15 mg/dL (7-25) 03/30/18 05:25 Creatinine 0.3 mg/dL (0.6-1.2) L 03/30/18 05:25 Est GFR ( Amer) > 60.0 ml/min (>90) 03/30/18 05:25 Est GFR (Non-Af Amer) > 60.0 ml/min 03/30/18 05:25 BUN/Creatinine Ratio 50.0 03/30/18 05:25 Glucose 143 mg/dL (70-105) H 03/30/18 05:25 POC Glucose 127 MG/DL (70 - 105) H 03/31/18 04:26 Whole Bld Lactic Acid 1.20 mmol/L (0.60-1.99) 03/20/18 19:15 Calcium 8.5 mg/dL (8.6-10.3) L 03/30/18 05:25 Phosphorus 3.1 mg/dL (2.5-5.0) 03/30/18 05:25 Magnesium 1.9 mg/dL (1.9-2.7) 03/30/18 05:25 Total Bilirubin 0.5 mg/dL (0.3-1.0) 03/30/18 05:25 Direct Bilirubin 0.47 mg/dL (0.0-0.2) H 03/29/18 04:35 AST 32 U/L (13-39) 03/30/18 05:25 ALT 46 U/L (7-52) 03/30/18 05:25 Alkaline Phosphatase 79 U/L (34-104) 03/30/18 05:25 C-Reactive Protein < 0.2 mg/dL (0.0-0.9) 03/22/18 04:50 Total Protein 6.3 gm/dL (6.0-8.3) 03/30/18 05:25 Albumin 3.1 gm/dL (3.7-5.3) L 03/30/18 05:25 Globulin 3.2 gm/dL 03/30/18 05:25 Albumin/Globulin Ratio 1.0 (1.0-1.8) 03/30/18 05:25 Prealbumin 14 mg/dL (10-36) 03/29/18 04:35 Triglycerides 72 mg/dL (<150) 03/29/18 04:35 Cholesterol 140 mg/dL (<200) 03/29/18 04:35 LDL Cholesterol Direct 87 mg/dL (75-193) 03/21/18 04:45 HDL Cholesterol 65 mg/dL (23-92) 03/21/18 04:45 TSH 1.11 uIU/ml (0.34-5.60) 03/21/18 04:45 Vancomycin Trough 14.4 ug/mL (5-10) H 03/24/18 20:28 - Physical Exam Vitals and I&O: Vital Signs Temp 99.3 F 03/31/18 08:00 Pulse 85 03/31/18 08:00 Resp 18 03/31/18 08:00 BP 151/86 03/31/18 08:00 Pulse Ox 100 03/31/18 08:00 Intake & Output 03/30/18 03/31/18 03/31/18 18:59 06:59 18:59 Intake Total 1105 1105 Balance 1105 1105 Weight (lbs) 44.497 kg 44.77 kg Intake: Intake, IV Amount 205 205 Ciprofloxacin 200mg 100 100 Premix PB 200 mg In 100 ml @ 100 mls/hr IV Q12HR [facility] Rx#:[id number] Levetiracetam 500 mg In 105 105 Sodium Chloride 0.9% 100 ml @ 400 mls/hr IV Q12H [facility] Rx#:[id number] Oral 0 TPN/PPN 900 900 Other: # Voids 3 Weight Source Bedscale Bedscale Active Medications: Current Medications Acetaminophen (Tylenol 650mg/20.3ml Suspension) 650 mg GT Q4HR PRN PRN Reason: Pain Or Fever >100 Stop: 05/20/18 10:46 Albuterol/Ipratropium (Duoneb Neb) 3 ml HHN [id number] PRN PRN Reason: sob Stop: 05/20/18 10:46 Last Admin: 03/31/18 07:46 Dose: 3 ml Bisacodyl (Dulcolax 10 Mg Supp) 10 mg RC Q96H PRN PRN Reason: Constipation Stop: 05/20/18 10:46 Last Admin: 03/22/18 19:42 Dose: 10 mg Carbamazepine (Tegretol) 400 mg GT Q12HR@0900,2100 [facility] Stop: 05/20/18 10:59 Last Admin: 03/30/18 20:29 Dose: Not Given Docusate Sodium (Colace) 200 mg GT BID [facility] Stop: 05/20/18 10:59 Last Admin: 03/29/18 09:50 Dose: Not Given Hydralazine HCl (Apresoline 20 Mg/Ml) 20 mg IV Q6HR PRN PRN Reason: SBP>160 Stop: 05/23/18 13:11 Levetiracetam 500 mg/ Sodium (Chloride) 105 mls @ 400 mls/hr IV Q12H [facility] Stop: 05/21/18 22:59 Last Infusion: 03/30/18 23:50 Dose: Infused Ciprofloxacin (Cipro 200mg Premix Pb) 200 mg in 100 mls @ 100 mls/hr IV Q12HR [facility] Stop: 05/23/18 13:29 Last Infusion: 03/30/18 21:28 Dose: Infused Multivitamins/Minerals 10 ml/Dextrose/ Amino Acids/Electrolytes/ Sterile Water 1,810 mls @ 75 mls/hr IV .Q24H [facility] Stop: 04/23/18 15:59 Last Admin: 03/30/18 18:07 Dose: 75 mls/hr Insulin Human Lispro (Humalog Insulin Sliding Scale) 0 units SUBQ Q6H [facility]; Protocol Stop: 05/22/18 15:59 Last Admin: 03/31/18 04:28 Dose: Not Given Lactobacillus Rhamnosus (Culturelle 15b) 1 each PO DAILY [facility] Stop: 05/25/18 08:59 Last Admin: 03/30/18 15:26 Dose: 1 each Lactulose (Cephulac) 10 gm GT DAILY PRN PRN Reason: Constipation Last Admin: 03/22/18 13:47 Dose: 10 gm Magnesium Hydroxide (Milk Of Magnesia) 30 ml GT Q72H PRN PRN Reason: Constipation Stop: 05/20/18 10:48 Metoprolol Tartrate (Lopressor) 12.5 mg GT QPM [facility] Stop: 05/20/18 16:59 Last Admin: 03/30/18 15:44 Dose: Not Given Miscellaneous (Ppn Per Pharmacy) 1 ea PRN PRN PRN Reason: PROTOCOL Stop: 05/21/18 14:48 Miscellaneous (Probiotic Screen) 1 ea PRN PRN PRN Reason: PROTOCOL Stop: 05/24/18 17:10 Petrolatum (Zinc Oxide) 1 appl TP HS [facility] Stop: 05/21/18 20:59 Last Admin: 03/30/18 20:30 Dose: 1 appl Sodium Phosphate (Fleet Enema) 135 ml RC Q96H PRN PRN Reason: IF DULCOLAX INEFFECTIVE Stop: 05/20/18 10:46 General: Alert, No acute distress HEENT: Atraumatic Neck: Supple Cardiovascular: Regular rate Lungs: Clear to auscultation Abdomen: Bowel sounds, Soft, Other (GC fistula with erythema, bandaged. Scant leakage), no Tender, no Distended, no Rebound, no Mass, no Guarding Extremities: no Edema Neurological: Sensation intact Skin: Rash - Procedures Procedures: Procedures Procedure Code Date ASPIR CURETT UTERUS NEC 69.59 06/12/11 CHANGE FEEDING DEVICE IN UP INTEST TRACT, CALL CENTER TRAINER APPROACH [id number] 01/27/16 CHANGE GASTROSTOMY TUBE 26985 05/21/15 DILATION AND CURETTAGE 08526 06/12/11 EGD BIOPSY SINGLE/MULTIPLE 15639 07/15/16 EXCISION OF STOMACH, ENDO, DIAGN [id number] 07/15/16 INSERTION OF FEEDING DEVICE INTO STOMACH, ENDO [id number] 07/15/16 [facility]O PROC ABDM/PER/OMENT 99110 07/29/13 LAPAROSCOP APPENDECTOMY 47.01 07/29/13 LAPAROSCOP LYSIS-PERITONEAL ADHES 54.51 07/29/13 LAPAROSCOPY APPENDECTOMY 13023 07/29/13 REPLACE GASTROSTOMY TUBE 97.02 07/26/14 Assessment/Plan - Assessment Assessment: # G tube site cellulitis # Dysphagia # Developmental delay As of 03/25, the site looked worse thus the G tube was pulled. Will need to wait for the area to heal prior to inserting a new one On 03/30, there is still erythema and some leakage from the area. Unclear if proper wound care is being applied to this area. Plan: - Will try NG tube feeding. If there is worse and copious leakage from the GC fistula, the feeds will need to be stopped. If she tolerates NG feeding, then she can be d/c-ed to SNF and await a new G tube in 1-2 weeks after the skin has healed - new G tube will be inserted after the site heals. This can take up to 2 weeks - wound care consult - nystatin and zinc cream orderd - cont abx to complete a 7 day course
[2018-03-31 08:36] LABS: ANION GAP 12.5 (7.0-16.0); BUN - UREA NITROGEN 14 mg/dL (7-25); CALCIUM SERUM 8.5 mg/dL (8.6-10.3); CARBON DIOXIDE 27.3 mEq/L (21.0-31.0); CHLORIDE 105 mEq/L (98-107); CREATININE - SERUM 0.3 mg/dL (0.6-1.2); GFR AFRICAN-AMERICAN > 60.0 ml/min (>90); GFR NON AFRICAN-AMERICAN > 60.0 ml/min; GLUCOSE 125 mg/dL (70-105); PHOSPHOROUS 3.4 mg/dL (2.5-5.0); POTASSIUM SERUM 3.8 mEq/L (3.5-5.1); SODIUM SERUM 141 mEq/L (136-145)
[2018-03-31] MEDS: Docusate Sodium 100 mg/10 mL UD GT SCH ×2 (09:00→17:12)
[2018-03-31] MEDS: Lactobacillus Rhamnosus GG 15 Billion CFU CAP.SPRINK PO SCH (09:00)
[2018-03-31] MEDS: carBAMazepine 200 mg/10 mL UDC GT SCH ×2 (09:00→22:21)
[2018-03-31] MEDS: Ciprofloxacin 200mg Premix PB 200 MG/100 ML BAG IV SCH ×2 (09:37→21:39)
--- NOTE | 2018-03-31 11:33 | Internal Medicine Prog Note ---
Internal Medicine Subjective - Subjective Service Date: 03/31/18 (above noted and reviewed. No acute events.) Patient is:: awake, non-verbal Per staff patient has:: no adverse event (TPN STARTED) Internal Medicine Objective - Results Result Diagrams: 03/24/18 06:00 03/31/18 06:10 Recent Labs: Laboratory Last Values WBC 7.0 Th/cmm (4.8-10.8) 03/24/18 06:00 RBC 4.08 Mil/cmm (3.80-5.10) 03/24/18 06:00 Hgb 13.4 gm/dL (12-16) 03/24/18 06:00 Hct 40.7 % (41.0-60) L 03/24/18 06:00 MCV 99.8 fl (81-100) 03/24/18 06:00 MCH 32.9 pg (27.0-31.0) H 03/24/18 06:00 MCHC Differential 33.0 pg (28.0-36.0) 03/24/18 06:00 RDW 10.7 % (11.5-20.0) L 03/24/18 06:00 Plt Count 278 Th/cmm (150-400) 03/24/18 06:00 MPV 9.7 fl 03/24/18 06:00 Neutrophils % 60.8 % (40.0-80.0) 03/24/18 06:00 Lymphocytes % 25.6 % (20.0-50.0) 03/24/18 06:00 Monocytes % 9.0 % (2.0-10.0) 03/24/18 06:00 Eosinophils % 3.7 % (0.0-5.0) 03/24/18 06:00 Basophils % 0.9 % (0.0-2.0) 03/24/18 06:00 ESR 41 mm/hr (0-30) H 03/22/18 04:50 Sodium 141 mEq/L (136-145) 03/31/18 06:10 Potassium 3.8 mEq/L (3.5-5.1) 03/31/18 06:10 Chloride 105 mEq/L (98-107) 03/31/18 06:10 Carbon Dioxide 27.3 mEq/L (21.0-31.0) 03/31/18 06:10 Anion Gap 12.5 (7.0-16.0) 03/31/18 06:10 BUN 14 mg/dL (7-25) 03/31/18 06:10 Creatinine 0.3 mg/dL (0.6-1.2) L 03/31/18 06:10 Est GFR ( Amer) > 60.0 ml/min (>90) 03/31/18 06:10 Est GFR (Non-Af Amer) > 60.0 ml/min 03/31/18 06:10 BUN/Creatinine Ratio 46.7 03/31/18 06:10 Glucose 125 mg/dL (70-105) H 03/31/18 06:10 POC Glucose 127 MG/DL (70 - 105) H 03/31/18 04:26 Whole Bld Lactic Acid 1.20 mmol/L (0.60-1.99) 03/20/18 19:15 Calcium 8.5 mg/dL (8.6-10.3) L 03/31/18 06:10 Phosphorus 3.4 mg/dL (2.5-5.0) 03/31/18 06:10 Magnesium 2.0 mg/dL (1.9-2.7) 03/31/18 06:10 Total Bilirubin 0.5 mg/dL (0.3-1.0) 03/30/18 05:25 Direct Bilirubin 0.47 mg/dL (0.0-0.2) H 03/29/18 04:35 AST 32 U/L (13-39) 03/30/18 05:25 ALT 46 U/L (7-52) 03/30/18 05:25 Alkaline Phosphatase 79 U/L (34-104) 03/30/18 05:25 C-Reactive Protein < 0.2 mg/dL (0.0-0.9) 03/22/18 04:50 Total Protein 6.3 gm/dL (6.0-8.3) 03/30/18 05:25 Albumin 3.1 gm/dL (3.7-5.3) L 03/30/18 05:25 Globulin 3.2 gm/dL 03/30/18 05:25 Albumin/Globulin Ratio 1.0 (1.0-1.8) 03/30/18 05:25 Prealbumin 14 mg/dL (10-36) 03/29/18 04:35 Triglycerides 72 mg/dL (<150) 03/29/18 04:35 Cholesterol 140 mg/dL (<200) 03/29/18 04:35 LDL Cholesterol Direct 87 mg/dL (75-193) 03/21/18 04:45 HDL Cholesterol 65 mg/dL (23-92) 03/21/18 04:45 TSH 1.11 uIU/ml (0.34-5.60) 03/21/18 04:45 Vancomycin Trough 14.4 ug/mL (5-10) H 03/24/18 20:28 - Physical Exam Vitals and I&O: Vital Signs Temp 97.1 F 03/31/18 08:00 Pulse 105 03/31/18 08:00 Resp 17 03/31/18 08:00 BP 115/80 03/31/18 08:00 Pulse Ox 93 03/31/18 08:00 Intake & Output 03/30/18 03/31/18 03/31/18 18:59 06:59 18:59 Intake Total 1105 1105 Balance 1105 1105 Weight (lbs) 44.497 kg 44.77 kg 44.77 kg Intake: Intake, IV Amount 205 205 Ciprofloxacin 200mg 100 100 Premix PB 200 mg In 100 ml @ 100 mls/hr IV Q12HR [facility] Rx#:[id number] Levetiracetam 500 mg In 105 105 Sodium Chloride 0.9% 100 ml @ 400 mls/hr IV Q12H [facility] Rx#:[id number] Oral 0 TPN/PPN 900 900 Other: # Voids 3 Weight Source Bedscale Bedscale Bedscale Active Medications: Current Medications Acetaminophen (Tylenol 650mg/20.3ml Suspension) 650 mg GT Q4HR PRN PRN Reason: Pain Or Fever >100 Stop: 05/20/18 10:46 Albuterol/Ipratropium (Duoneb Neb) 3 ml HHN [id number] PRN PRN Reason: sob Stop: 05/20/18 10:46 Last Admin: 03/31/18 07:46 Dose: 3 ml Bisacodyl (Dulcolax 10 Mg Supp) 10 mg RC Q96H PRN PRN Reason: Constipation Stop: 05/20/18 10:46 Last Admin: 03/22/18 19:42 Dose: 10 mg Carbamazepine (Tegretol) 400 mg GT Q12HR@0900,2100 [facility] Stop: 05/20/18 10:59 Last Admin: 03/31/18 09:00 Dose: Not Given Docusate Sodium (Colace) 200 mg GT BID [facility] Stop: 05/20/18 10:59 Last Admin: 03/31/18 09:00 Dose: Not Given Hydralazine HCl (Apresoline 20 Mg/Ml) 20 mg IV Q6HR PRN PRN Reason: SBP>160 Stop: 05/23/18 13:11 Levetiracetam 500 mg/ Sodium (Chloride) 105 mls @ 400 mls/hr IV Q12H [facility] Stop: 05/21/18 22:59 Last Infusion: 03/30/18 23:50 Dose: Infused Ciprofloxacin (Cipro 200mg Premix Pb) 200 mg in 100 mls @ 100 mls/hr IV Q12HR [facility] Stop: 05/23/18 13:29 Last Admin: 03/31/18 09:37 Dose: 100 mls/hr Multivitamins/Minerals 10 ml/Dextrose/ Amino Acids/Electrolytes/ Sterile Water 1,810 mls @ 75 mls/hr IV .Q24H [facility] Stop: 04/23/18 15:59 Last Admin: 03/30/18 18:07 Dose: 75 mls/hr Insulin Human Lispro (Humalog Insulin Sliding Scale) 0 units SUBQ Q6H [facility]; Protocol Stop: 05/22/18 15:59 Last Admin: 03/31/18 04:28 Dose: Not Given Lactobacillus Rhamnosus (Culturelle 15b) 1 each PO DAILY [facility] Stop: 05/25/18 08:59 Last Admin: 03/30/18 15:26 Dose: 1 each Lactulose (Cephulac) 10 gm GT DAILY PRN PRN Reason: Constipation Last Admin: 03/22/18 13:47 Dose: 10 gm Magnesium Hydroxide (Milk Of Magnesia) 30 ml GT Q72H PRN PRN Reason: Constipation Stop: 05/20/18 10:48 Metoprolol Tartrate (Lopressor) 12.5 mg GT QPM [facility] Stop: 05/20/18 16:59 Last Admin: 03/30/18 15:44 Dose: Not Given Miscellaneous (Ppn Per Pharmacy) 1 ea [facility] PRN PRN PRN Reason: PROTOCOL Stop: 05/21/18 14:48 Miscellaneous (Probiotic Screen) 1 [facility] PRN PRN PRN Reason: PROTOCOL Stop: 05/24/18 17:10 Petrolatum (Zinc Oxide) 1 appl TP HS [facility] Stop: 05/21/18 20:59 Last Admin: 03/30/18 20:30 Dose: 1 appl Sodium Phosphate (Fleet Enema) 135 ml RC Q96H PRN PRN Reason: IF DULCOLAX INEFFECTIVE Stop: 05/20/18 10:46 General: thin, NAD HEENT: NC/AT, PERRLA, EOMI Neck: No JVD, no No thyromegaly Lungs: CTAB Cardiovascular: RRR Abdomen: soft, non-tender, +GT - redness, +GT - discharge Extremities: clear - Procedures Procedures: Procedures Procedure Code Date ASPIR CURETT UTERUS NEC 69.59 06/12/11 CHANGE FEEDING DEVICE IN UP INTEST TRACT, VENDING MANAGER APPROACH [id number] 01/27/16 CHANGE GASTROSTOMY TUBE 63371 05/21/15 DILATION AND CURETTAGE 94437 06/12/11 EGD BIOPSY SINGLE/MULTIPLE 18960 07/15/16 EXCISION OF STOMACH, ENDO, DIAGN [id number] 07/15/16 INSERTION OF FEEDING DEVICE INTO STOMACH, ENDO [id number] 07/15/16 [facility]ARO PROC ABDM/PER/OMENT 50545 07/29/13 LAPAROSCOP APPENDECTOMY 47.01 07/29/13 LAPAROSCOP LYSIS-PERITONEAL ADHES 54.51 07/29/13 LAPAROSCOPY APPENDECTOMY 85483 07/29/13 REPLACE GASTROSTOMY TUBE 97.02 07/26/14 Internal Medicine Assmt/Plan - Assessment Assessment: 1. GTUBE MALFUNCTION WITH LEAKAGE 2. GT SITE CELLULITIS/DRAINAGE (GC FISTULA) 3. COMPLEX WOUND INFX-PSEUDOMONAS AERUGINOSA 3. HISTORY OF DYSPHAGIA-PEG PLACEMENT 4. HX OF CONSTIPATION 5. HYPONATREMIA--RESOLVED 6. HX OF SEIZURE DISORDER-STABLE 7. HX OF INTELLECTUAL DISABILITY 8. S/P PICC LINE PLACEMENT - Plan Plan: CONT WITH CURRENT TX PLAN AND MGT CONT TO HOLD GT FEEDS FOR NOW CONT WITH TPN CONT WITH IV ABXS (MEROPENEM), AND LOCAL WOUND CARE GI PLAN NOTED: NGT PLACEMENT-IF TOLERATED (NO LEAKAGE), WILL DC TO SNF FOR WC AND IV ABXS WITH EVENTUAL RE-INSERTION WHEN SITE HEALS. FOLLOW C/S, LABS OK TO TRANSFER TO SNF ONCE BED AVAILABLE--SHORT-TERM STAY (FOR COMPLETION OF IV ABXS) GI FU Nutritional Asmnt/Malnutr-PDOC - Dietary Evaluation Malnutrition Findings (Please click <Entered> for more info): Nutritional Asmnt/Malnutrition Start: 03/21/18 13: 29 Text: Status: Complete Freq: Protocol: Document 03/21/18 13:29 LCHENG (Rec: 03/21/18 13:45 LCHENG [email or web address]) Nutritional Asmnt/Malnutrition Patient General Information Nutritional Screening High Risk Consult Diagnosis displacement of Gtube, Gtube site cellulitis Pertinent Medical Hx/Surgical Hx HTN, PUD?GERD, seizures, hepatitis B and C, developmentally disabled, quadriplegic Subjective Information Consult reiceved for shayna score 11. Pt seen in bed, non verbal noted. Per nurse pt is tolerating current tube feeding. CALEB Rdz asked about TF rate since pt was receiving Jevity 1.5 at assisted and our hospital only carries Jevity 1.2. Current Diet Order/ Nutrition Support Jevity 1.2 at 40ml/hr x 20hr, providing 960kcal and 44g protein Pertinent Medications oscal w/vit D, colace, nacl 0. 9%, vancomycin Pertinent Labs 2/4 Cl 108, Cr 0.4 2/3 Cr 0.4, glucose 109, alb 3 .6 Nutritional Hx/Data Height 1.6 m Height (Calculated Centimeters) 160.0 Current Weight (lbs) 45.359 kg Weight (Calculated Kilograms) 45.4 Weight (Calculated Grams) 74778.2 [place]sprey Body Weight 115 Body Mass Index (BMI) 17.6 Weight Status Underweight GI Symptoms GI Symptoms None Last BM not indicated Usual diet at home Jevity 1.5 at 40ml/hr x 20hr at SNF Skin Integrity/Comment: cellulitis reddened to Gtube site shayna 11 Estimated Nutritional Goals Calories/Kcals/Kg 25-30 IBW 52kg Kcals Calculated 8854-2322 Protein g/k-1.2 Protein Calculated 52-62 Fluid: ml 1300-1560ml (1ml/kcal) Nutritional Problem 1. Problem Problem inadequate intake from enteral feeding Etiology current TF regimen not meeting nutritional needs Signs/Symptoms: current TF providing 960kcal and 44g protein Malnutrition Related to Morbid Obesity Malnutrition related to morbid obesity No Intervention/Recommendation Comments 1. Recommend to increase TF rate to Jevity 1.2 at 55ml/hr x 20hr. It provides 1320kcal, 61g protein, 888ml free water, meeting 100% of nutritional needs. RN Kajal notified. 2. Monitor TF rate, tolerance, wt, skin integrity and labs 3. F/U as high risk in 2-3 days, 03/22-2/ Expected Outcomes/Goals Expected Outcomes/Goals 1. Pt to meet at least 90% of nutritional needs via nutrition support with tolerance 2. Wt stability, skin to remain intact, labs to approach WNL.
[2018-03-31] MEDS: Meropenem 1 GM in Sodium Chloride 0.9% 100 ML IV SCH ×2 (12:06→20:36)
[2018-03-31] MEDS: Zinc Oxide Ointment 60 gm TP SCH (23:01)
[2018-04-01] MEDS: INSULIN LISPRO SLIDING SCALE 100 UNITS/ML UNIT SUBQ SCH ×2 (04:41→23:05)
[2018-04-01] MEDS: Meropenem 1 GM in Sodium Chloride 0.9% 100 ML IV SCH ×3 (05:59→20:30)
[2018-04-01 06:49] LABS: ANION GAP 9.6 (7.0-16.0); BUN - UREA NITROGEN 18 mg/dL (7-25); CARBON DIOXIDE 27.8 mEq/L (21.0-31.0); CHLORIDE 107 mEq/L (98-107); GLUCOSE 136 mg/dL (70-105); POTASSIUM SERUM 3.4 mEq/L (3.5-5.1); SODIUM SERUM 141 mEq/L (136-145)
[2018-04-01 06:50] LABS: CALCIUM SERUM 8.2 mg/dL (8.6-10.3); CREATININE - SERUM 0.3 mg/dL (0.6-1.2); GFR AFRICAN-AMERICAN > 60.0 ml/min (>90); GFR NON AFRICAN-AMERICAN > 60.0 ml/min; MAGNESIUM 1.8 mg/dL (1.9-2.7); PHOSPHOROUS 3.1 mg/dL (2.5-5.0)
--- NOTE | 2018-04-01 07:05 | GI Progress Note ---
Subjective - Review of Systems Service Date: 04/01/18 Subjective: GC fistula site looks more inflamed, erythematous Objective - Results Result Diagrams: 03/24/18 06:00 03/31/18 06:10 Recent Labs: Laboratory Last Values WBC 7.0 Th/cmm (4.8-10.8) 03/24/18 06:00 RBC 4.08 Mil/cmm (3.80-5.10) 03/24/18 06:00 Hgb 13.4 gm/dL (12-16) 03/24/18 06:00 Hct 40.7 % (41.0-60) L 03/24/18 06:00 MCV 99.8 fl (81-100) 03/24/18 06:00 MCH 32.9 pg (27.0-31.0) H 03/24/18 06:00 MCHC Differential 33.0 pg (28.0-36.0) 03/24/18 06:00 RDW 10.7 % (11.5-20.0) L 03/24/18 06:00 Plt Count 278 Th/cmm (150-400) 03/24/18 06:00 MPV 9.7 fl 03/24/18 06:00 Neutrophils % 60.8 % (40.0-80.0) 03/24/18 06:00 Lymphocytes % 25.6 % (20.0-50.0) 03/24/18 06:00 Monocytes % 9.0 % (2.0-10.0) 03/24/18 06:00 Eosinophils % 3.7 % (0.0-5.0) 03/24/18 06:00 Basophils % 0.9 % (0.0-2.0) 03/24/18 06:00 ESR 41 mm/hr (0-30) H 03/22/18 04:50 Sodium 141 mEq/L (136-145) 03/31/18 06:10 Potassium 3.8 mEq/L (3.5-5.1) 03/31/18 06:10 Chloride 105 mEq/L (98-107) 03/31/18 06:10 Carbon Dioxide 27.3 mEq/L (21.0-31.0) 03/31/18 06:10 Anion Gap 12.5 (7.0-16.0) 03/31/18 06:10 BUN 14 mg/dL (7-25) 03/31/18 06:10 Creatinine 0.3 mg/dL (0.6-1.2) L 03/31/18 06:10 Est GFR ( Amer) > 60.0 ml/min (>90) 03/31/18 06:10 Est GFR (Non-Af Amer) > 60.0 ml/min 03/31/18 06:10 BUN/Creatinine Ratio 46.7 03/31/18 06:10 Glucose 125 mg/dL (70-105) H 03/31/18 06:10 POC Glucose 116 MG/DL (70 - 105) H 04/01/18 04:39 Whole Bld Lactic Acid 1.20 mmol/L (0.60-1.99) 03/20/18 19:15 Calcium 8.5 mg/dL (8.6-10.3) L 03/31/18 06:10 Phosphorus 3.4 mg/dL (2.5-5.0) 03/31/18 06:10 Magnesium 2.0 mg/dL (1.9-2.7) 03/31/18 06:10 Total Bilirubin 0.5 mg/dL (0.3-1.0) 03/30/18 05:25 Direct Bilirubin 0.47 mg/dL (0.0-0.2) H 03/29/18 04:35 AST 32 U/L (13-39) 03/30/18 05:25 ALT 46 U/L (7-52) 03/30/18 05:25 Alkaline Phosphatase 79 U/L (34-104) 03/30/18 05:25 C-Reactive Protein < 0.2 mg/dL (0.0-0.9) 03/22/18 04:50 Total Protein 6.3 gm/dL (6.0-8.3) 03/30/18 05:25 Albumin 3.1 gm/dL (3.7-5.3) L 03/30/18 05:25 Globulin 3.2 gm/dL 03/30/18 05:25 Albumin/Globulin Ratio 1.0 (1.0-1.8) 03/30/18 05:25 Prealbumin 14 mg/dL (10-36) 03/29/18 04:35 Triglycerides 72 mg/dL (<150) 03/29/18 04:35 Cholesterol 140 mg/dL (<200) 03/29/18 04:35 LDL Cholesterol Direct 87 mg/dL (75-193) 03/21/18 04:45 HDL Cholesterol 65 mg/dL (23-92) 03/21/18 04:45 TSH 1.11 uIU/ml (0.34-5.60) 03/21/18 04:45 Vancomycin Trough 14.4 ug/mL (5-10) H 03/24/18 20:28 - Physical Exam Vitals and I&O: Vital Signs Temp 97.5 F 04/01/18 04:00 Pulse 99 04/01/18 04:00 Resp 18 04/01/18 04:00 BP 110/75 04/01/18 04:00 Pulse Ox 94 04/01/18 04:00 Intake & Output 03/31/18 04/01/18 04/01/18 18:59 06:59 18:59 Intake Total 305 405 Balance 305 405 Weight (lbs) 44.77 kg 44.135 kg Intake: Intake, IV Amount 305 405 Ciprofloxacin 200mg 100 100 Premix PB 200 mg In 100 ml @ 100 mls/hr IV Q12HR [facility] Rx#:[id number] Levetiracetam 500 mg In 105 105 Sodium Chloride 0.9% 100 ml @ 400 mls/hr IV Q12H [facility] Rx#:[id number] Meropenem 1 gm In Sodium 100 200 Chloride 0.9% 100 ml @ 100 mls/hr IV Q8H [facility] Rx# :[id number] Other: # Voids 2 # Bowel Movements 0 Weight Source Bedscale Bedscale Active Medications: Current Medications Acetaminophen (Tylenol 650mg/20.3ml Suspension) 650 mg GT Q4HR PRN PRN Reason: Pain Or Fever >100 Stop: 05/20/18 10:46 Albuterol/Ipratropium (Duoneb Neb) 3 ml HHN [id number] PRN PRN Reason: sob Stop: 05/20/18 10:46 Last Admin: 03/31/18 16:12 Dose: 3 ml Bisacodyl (Dulcolax 10 Mg Supp) 10 mg RC Q96H PRN PRN Reason: Constipation Stop: 05/20/18 10:46 Last Admin: 03/22/18 19:42 Dose: 10 mg Calcium/Vitamin D (Oscal W/Vitamin D) 2 tab GT BID [facility] Stop: 05/31/18 08:59 Carbamazepine (Tegretol) 400 mg GT Q12HR@0900,2100 [facility] Stop: 05/20/18 10:59 Last Admin: 03/31/18 22:21 Dose: 400 mg Docusate Sodium (Colace) 200 mg GT BID [facility] Stop: 05/20/18 10:59 Last Admin: 03/31/18 17:12 Dose: 200 mg Hydralazine HCl (Apresoline 20 Mg/Ml) 20 mg IV Q6HR PRN PRN Reason: SBP>160 Stop: 05/23/18 13:11 Levetiracetam 500 mg/ Sodium (Chloride) 105 mls @ 400 mls/hr IV Q12H [facility] Stop: 05/21/18 22:59 Last Infusion: 04/01/18 00:25 Dose: Infused Meropenem 1 gm/ Sodium (Chloride) 100 mls @ 100 mls/hr IV Q8H [facility] Stop: 05/30/18 11:35 Last Infusion: 04/01/18 06:49 Dose: Infused Insulin Human Lispro (Humalog Insulin Sliding Scale) 0 units SUBQ Q6H [facility]; Protocol Stop: 05/22/18 15:59 Last Admin: 04/01/18 04:41 Dose: Not Given Lactobacillus Rhamnosus (Culturelle 15b) 1 each PO DAILY [facility] Stop: 05/25/18 08:59 Last Admin: 03/31/18 09:00 Dose: Not Given Lactulose (Cephulac) 10 gm GT DAILY PRN PRN Reason: Constipation Last Admin: 03/22/18 13:47 Dose: 10 gm Magnesium Hydroxide (Milk Of Magnesia) 30 ml GT Q72H PRN PRN Reason: Constipation Stop: 05/20/18 10:48 Metoprolol Tartrate (Lopressor) 12.5 mg GT QPM [facility] Stop: 05/20/18 16:59 Last Admin: 03/31/18 17:13 Dose: 12.5 mg Miscellaneous (Probiotic Screen) 1 ea [facility] PRN PRN PRN Reason: PROTOCOL Stop: 05/24/18 17:10 Multivitamins/Minerals (Theragran M) 15 ml GT DAILY [facility] Stop: 05/31/18 08:59 Petrolatum (Zinc Oxide) 1 appl TP HS [facility] Stop: 05/21/18 20:59 Last Admin: 03/31/18 23:01 Dose: Not Given Sodium Phosphate (Fleet Enema) 135 ml RC Q96H PRN PRN Reason: IF DULCOLAX INEFFECTIVE Stop: 05/20/18 10:46 General: Alert HEENT: Atraumatic Neck: Supple Cardiovascular: Regular rate Lungs: Clear to auscultation Abdomen: Bowel sounds, Soft, Other (GC fistula with erythema, bandaged. Some purulent drainage), no Tender, no Distended, no Rebound, no Mass, no Guarding Extremities: no Edema Neurological: Sensation intact Skin: Rash - Procedures Procedures: Procedures Procedure Code Date ASPIR CURETT UTERUS NEC 69.59 06/12/11 CHANGE FEEDING DEVICE IN UP INTEST TRACT, HOOP BENDER TANK APPROACH [id number] 01/27/16 CHANGE GASTROSTOMY TUBE 72190 05/21/15 DILATION AND CURETTAGE 74511 06/12/11 EGD BIOPSY SINGLE/MULTIPLE 27080 07/15/16 EXCISION OF STOMACH, ENDO, DIAGN [id number] 07/15/16 INSERTION OF FEEDING DEVICE INTO STOMACH, ENDO [id number] 07/15/16 LAPARO PROC ABDM/PER/OMENT 18039 07/29/13 LAPAROSCOP APPENDECTOMY 47.01 07/29/13 LAPAROSCOP LYSIS-PERITONEAL ADHES 54.51 07/29/13 LAPAROSCOPY APPENDECTOMY 03103 07/29/13 REPLACE GASTROSTOMY TUBE 97.02 07/26/14 Assessment/Plan - Assessment Assessment: # G tube site cellulitis # Dysphagia # Developmental delay As of 03/25, the site looked worse thus the G tube was pulled. Will need to wait for the area to heal prior to inserting a new one On 03/30, there is still erythema and some leakage from the area. Unclear if proper wound care is being applied to this area. On 04/01, the site looks more inflamed. Does not appear to be leakage from NG feeding, but infection on the skin is not improving. Plan: - suggest ID consult to help with unresolving cellulitis. She may need vancomycin in addition to meropenem that is already ordered - consider repeat CT scan to look for abscess formation - cont NG feeding as there does not appear to be leakage through the fistula of tube feeds - new G tube will be inserted after the site heals. This can take up to 2 weeks - wound care consult, this service should see the pt daily - nystatin and zinc cream orderd
[2018-04-01 07:12] LABS: % BASOPHILS 0.9 % (0.0-2.0); % EOSINOPHILS 3.5 % (0.0-5.0); % LYMPHOCYTES 22.6 % (20.0-50.0); % MONOCYTES 10.7 % (2.0-10.0); % NEUTROPHILS 62.3 % (40.0-80.0); BASOPHILE ABSOLUTE 0.1 Th/cumm (0-0.2); EOSINOPHILE ABSOLUTE 0.3 Th/cmm (0.1-0.4); HEMATOCRIT 38.5 % (41.0-60); HEMOGLOBIN 12.8 gm/dL (12-16); LYMPHOCYTE ABSOLUTE 2.1 Th/cmm (1.5-3.0); MEAN CELL VOLUME 98.9 fl (81-100); MEAN CORPUSCULAR HEMOGLOBIN 32.9 pg (27.0-31.0); MEAN CORPUSCULAR HGB CONC 33.2 pg (28.0-36.0); MEAN PLATELET VOLUME 10.2 fl; NEUTROPHILE ABSOLUTE 5.9 Th/cmm (1.8-8.0); PLATELET COUNT 223 Th/cmm (150-400); RED BLOOD COUNT 3.89 Mil/cmm (3.80-5.10); RED CELL DISTRIBUTION WIDTH 10.9 % (11.5-20.0); WHITE BLOOD COUNT 9.4 Th/cmm (4.8-10.8)
[2018-04-01] MEDS: Albuterol/Ipratropium Neb 3 ML AERS HHN PRN (07:45)
[2018-04-01] MEDS: Calcium Carb/Vit D 500 mg/200 U Tab GT SCH (08:39)
[2018-04-01] MEDS: carBAMazepine 200 mg/10 mL UDC GT SCH ×2 (08:39→23:02)
[2018-04-01] MEDS: Multivitamin w/ Minerals 15 mL UDC GT SCH (08:39)
[2018-04-01] MEDS: Lactobacillus Rhamnosus GG 15 Billion CFU CAP.SPRINK PO SCH (08:39)
[2018-04-01] MEDS: Docusate Sodium 100 mg/10 mL UD GT SCH (08:40)
--- NOTE | 2018-04-01 09:25 | Internal Medicine Prog Note ---
Internal Medicine Subjective - Subjective Service Date: 04/01/18 (OFF TPN. TOLERATING NGT FEEDS WELL. CURRENTLY NO LEAKAGE FROM GT SITE NOTED.) Patient seen and examined:: with staff Patient is:: awake, non-verbal Per staff patient has:: no adverse event (TPN STARTED) Internal Medicine Objective - Results Result Diagrams: 04/01/18 06:15 04/01/18 06:15 Recent Labs: Laboratory Last Values WBC 9.4 Th/cmm (4.8-10.8) 04/01/18 06:15 RBC 3.89 Mil/cmm (3.80-5.10) 04/01/18 06:15 Hgb 12.8 gm/dL (12-16) 04/01/18 06:15 Hct 38.5 % (41.0-60) L 04/01/18 06:15 MCV 98.9 fl (81-100) 04/01/18 06:15 MCH 32.9 pg (27.0-31.0) H 04/01/18 06:15 MCHC Differential 33.2 pg (28.0-36.0) 04/01/18 06:15 RDW 10.9 % (11.5-20.0) L 04/01/18 06:15 Plt Count 223 Th/cmm (150-400) 04/01/18 06:15 MPV 10.2 fl 04/01/18 06:15 Neutrophils % 62.3 % (40.0-80.0) 04/01/18 06:15 Lymphocytes % 22.6 % (20.0-50.0) 04/01/18 06:15 Monocytes % 10.7 % (2.0-10.0) H 04/01/18 06:15 Eosinophils % 3.5 % (0.0-5.0) 04/01/18 06:15 Basophils % 0.9 % (0.0-2.0) 04/01/18 06:15 ESR 41 mm/hr (0-30) H 03/22/18 04:50 Sodium 141 mEq/L (136-145) 04/01/18 06:15 Potassium 3.4 mEq/L (3.5-5.1) L 04/01/18 06:15 Chloride 107 mEq/L (98-107) 04/01/18 06:15 Carbon Dioxide 27.8 mEq/L (21.0-31.0) 04/01/18 06:15 Anion Gap 9.6 (7.0-16.0) 04/01/18 06:15 BUN 18 mg/dL (7-25) 04/01/18 06:15 Creatinine 0.3 mg/dL (0.6-1.2) L 04/01/18 06:15 Est GFR ( Amer) > 60.0 ml/min (>90) 04/01/18 06:15 Est GFR (Non-Af Amer) > 60.0 ml/min 04/01/18 06:15 BUN/Creatinine Ratio 60.0 04/01/18 06:15 Glucose 136 mg/dL (70-105) H 04/01/18 06:15 POC Glucose 116 MG/DL (70 - 105) H 04/01/18 04:39 Whole Bld Lactic Acid 1.20 mmol/L (0.60-1.99) 03/20/18 19:15 Calcium 8.2 mg/dL (8.6-10.3) L 04/01/18 06:15 Phosphorus 3.1 mg/dL (2.5-5.0) 04/01/18 06:15 Magnesium 1.8 mg/dL (1.9-2.7) L 04/01/18 06:15 Total Bilirubin 0.5 mg/dL (0.3-1.0) 03/30/18 05:25 Direct Bilirubin 0.47 mg/dL (0.0-0.2) H 03/29/18 04:35 AST 32 U/L (13-39) 03/30/18 05:25 ALT 46 U/L (7-52) 03/30/18 05:25 Alkaline Phosphatase 79 U/L (34-104) 03/30/18 05:25 C-Reactive Protein < 0.2 mg/dL (0.0-0.9) 03/22/18 04:50 Total Protein 6.3 gm/dL (6.0-8.3) 03/30/18 05:25 Albumin 3.1 gm/dL (3.7-5.3) L 03/30/18 05:25 Globulin 3.2 gm/dL 03/30/18 05:25 Albumin/Globulin Ratio 1.0 (1.0-1.8) 03/30/18 05:25 Prealbumin 14 mg/dL (10-36) 03/29/18 04:35 Triglycerides 72 mg/dL (<150) 03/29/18 04:35 Cholesterol 140 mg/dL (<200) 03/29/18 04:35 LDL Cholesterol Direct 87 mg/dL (75-193) 03/21/18 04:45 HDL Cholesterol 65 mg/dL (23-92) 03/21/18 04:45 TSH 1.11 uIU/ml (0.34-5.60) 03/21/18 04:45 Vancomycin Trough 14.4 ug/mL (5-10) H 03/24/18 20:28 - Physical Exam Vitals and I&O: Vital Signs Temp 95.5 F 04/01/18 08:18 Pulse 107 04/01/18 08:18 Resp 19 04/01/18 08:18 BP 104/68 04/01/18 08:18 Pulse Ox 97 04/01/18 08:18 Intake & Output 03/31/18 04/01/18 04/01/18 18:59 06:59 18:59 Intake Total 305 405 Balance 305 405 Weight (lbs) 44.77 kg 44.135 kg Intake: Intake, IV Amount 305 405 Ciprofloxacin 200mg 100 100 Premix PB 200 mg In 100 ml @ 100 mls/hr IV Q12HR [facility] Rx#:[id number] Levetiracetam 500 mg In 105 105 Sodium Chloride 0.9% 100 ml @ 400 mls/hr IV Q12H [facility] Rx#:[id number] Meropenem 1 gm In Sodium 100 200 Chloride 0.9% 100 ml @ 100 mls/hr IV Q8H [facility] Rx# :[id number] Other: # Voids 2 # Bowel Movements 0 Weight Source Bedscale Bedscale Active Medications: Current Medications Acetaminophen (Tylenol 650mg/20.3ml Suspension) 650 mg GT Q4HR PRN PRN Reason: Pain Or Fever >100 Stop: 05/20/18 10:46 Albuterol/Ipratropium (Duoneb Neb) 3 ml HHN [id number] PRN PRN Reason: sob Stop: 05/20/18 10:46 Last Admin: 04/01/18 07:45 Dose: 3 ml Bisacodyl (Dulcolax 10 Mg Supp) 10 mg RC Q96H PRN PRN Reason: Constipation Stop: 05/20/18 10:46 Last Admin: 03/22/18 19:42 Dose: 10 mg Calcium/Vitamin D (Oscal W/Vitamin D) 2 tab GT BID [facility] Stop: 05/31/18 08:59 Last Admin: 04/01/18 08:39 Dose: 2 tab Carbamazepine (Tegretol) 400 mg GT Q12HR@0900,2100 [facility] Stop: 05/20/18 10:59 Last Admin: 04/01/18 08:39 Dose: 400 mg Docusate Sodium (Colace) 200 mg GT BID [facility] Stop: 05/20/18 10:59 Last Admin: 04/01/18 08:40 Dose: 200 mg Hydralazine HCl (Apresoline 20 Mg/Ml) 20 mg IV Q6HR PRN PRN Reason: SBP>160 Stop: 05/23/18 13:11 Levetiracetam 500 mg/ Sodium (Chloride) 105 mls @ 400 mls/hr IV Q12H [facility] Stop: 05/21/18 22:59 Last Infusion: 04/01/18 00:25 Dose: Infused Meropenem 1 gm/ Sodium (Chloride) 100 mls @ 100 mls/hr IV Q8H [facility] Stop: 05/30/18 11:35 Last Infusion: 04/01/18 06:49 Dose: Infused Insulin Human Lispro (Humalog Insulin Sliding Scale) 0 units SUBQ Q6H [facility]; Protocol Stop: 05/22/18 15:59 Last Admin: 04/01/18 04:41 Dose: Not Given Lactobacillus Rhamnosus (Culturelle 15b) 1 each PO DAILY [facility] Stop: 05/25/18 08:59 Last Admin: 04/01/18 08:39 Dose: 1 each Lactulose (Cephulac) 10 gm GT DAILY PRN PRN Reason: Constipation Last Admin: 03/22/18 13:47 Dose: 10 gm Magnesium Hydroxide (Milk Of Magnesia) 30 ml GT Q72H PRN PRN Reason: Constipation Stop: 05/20/18 10:48 Metoprolol Tartrate (Lopressor) 12.5 mg GT QPM [facility] Stop: 05/20/18 16:59 Last Admin: 03/31/18 17:13 Dose: 12.5 mg Miscellaneous (Probiotic Screen) 1 ea MC PRN PRN PRN Reason: PROTOCOL Stop: 05/24/18 17:10 Multivitamins/Minerals (Theragran M) 15 ml GT DAILY [facility] Stop: 05/31/18 08:59 Last Admin: 04/01/18 08:39 Dose: 15 ml Petrolatum (Zinc Oxide) 1 appl TP HS [facility] Stop: 05/21/18 20:59 Last Admin: 03/31/18 23:01 Dose: Not Given Sodium Phosphate (Fleet Enema) 135 ml RC Q96H PRN PRN Reason: IF DULCOLAX INEFFECTIVE Stop: 05/20/18 10:46 General: thin, NAD HEENT: NC/AT, PERRLA, EOMI Neck: No JVD, no No thyromegaly Lungs: CTAB Cardiovascular: RRR Abdomen: soft, non-tender, +GT - redness, +GT - discharge, other Extremities: clear Neurological: no change, spastic - Procedures Procedures: Procedures Procedure Code Date ASPIR CURETT UTERUS NEC 69.59 06/12/11 CHANGE FEEDING DEVICE IN UP INTEST TRACT, RESIDENT MEDICAL OFFICER APPROACH [id number] 01/27/16 CHANGE GASTROSTOMY TUBE 83784 05/21/15 DILATION AND CURETTAGE 93512 06/12/11 EGD BIOPSY SINGLE/MULTIPLE 22378 07/15/16 EXCISION OF STOMACH, ENDO, DIAGN [id number] 07/15/16 INSERTION OF FEEDING DEVICE INTO STOMACH, ENDO [id number] 07/15/16 [facility] PROC ABDM/PER/OMENT 38495 07/29/13 LAPAROSCOP APPENDECTOMY 47.01 07/29/13 LAPAROSCOP LYSIS-PERITONEAL ADHES 54.51 07/29/13 LAPAROSCOPY APPENDECTOMY 31840 07/29/13 REPLACE GASTROSTOMY TUBE 97.02 07/26/14 Internal Medicine Assmt/Plan - Assessment Assessment: 1. GTUBE MALFUNCTION WITH LEAKAGE 2. GT SITE CELLULITIS/DRAINAGE (GC FISTULA) 3. COMPLEX WOUND INFX-PSEUDOMONAS AERUGINOSA 3. HISTORY OF DYSPHAGIA-PEG PLACEMENT 4. HX OF CONSTIPATION 5. HYPONATREMIA--RESOLVED 6. HX OF SEIZURE DISORDER-STABLE 7. HX OF INTELLECTUAL DISABILITY 8. S/P PICC LINE PLACEMENT 9. ELECTROLYTE IMBALANCE-REPLETE/MONITOR. - Plan Plan: CONT WITH CURRENT TX PLAN AND MGT CONT TO HOLD GT FEEDS FOR NOW CONT WITH IV ABXS (MEROPENEM), AND LOCAL WOUND CARE. ID EVAL CONT WITH NGT FEEDS AND MONITOR FOR GT SITE LEAKAGE. REPLETE LYTES/MONITOR. GI FU Nutritional Asmnt/Malnutr-PDOC - Dietary Evaluation Malnutrition Findings (Please click <Entered> for more info): Nutritional Asmnt/Malnutrition Start: 03/21/18 13: 29 Text: Status: Complete Freq: Protocol: Document 03/21/18 13:29 LCHENG (Rec: 03/21/18 13:45 LCHENG [email or web address]) Nutritional Asmnt/Malnutrition Patient General Information Nutritional Screening High Risk Consult Diagnosis displacement of Gtube, Gtube site cellulitis Pertinent Medical Hx/Surgical Hx HTN, PUD?GERD, seizures, hepatitis B and C, developmentally disabled, quadriplegic Subjective Information Consult reiceved for shayna score 11. Pt seen in bed, non verbal noted. Per nurse pt is tolerating current tube feeding. CALEB Rdz asked about TF rate since pt was receiving Jevity 1.5 at [facility] and our hospital only carries Jevity 1.2. Current Diet Order/ Nutrition Support Jevity 1.2 at 40ml/hr x 20hr, providing 960kcal and 44g protein Pertinent Medications oscal w/vit D, colace, nacl 0. 9%, vancomycin Pertinent Labs 2/4 Cl 108, Cr 0.4 2/3 Cr 0.4, glucose 109, alb 3 .6 Nutritional Hx/Data Height 1.6 m Height (Calculated Centimeters) 160.0 Current Weight (lbs) 45.359 kg Weight (Calculated Kilograms) 45.4 Weight (Calculated Grams) 16959.2 [place] Body Weight 115 Body Mass Index (BMI) 17.6 Weight Status Underweight GI Symptoms GI Symptoms None Last BM not indicated Usual diet at home Jevity 1.5 at 40ml/hr x 20hr at [facility] Skin Integrity/Comment: cellulitis reddened to Gtube site shayna 11 Estimated Nutritional Goals Calories/Kcals/Kg 25-30 IBW 52kg Kcals Calculated 3418-7667 Protein g/k-1.2 Protein Calculated 52-62 Fluid: ml 1300-1560ml (1ml/kcal) Nutritional Problem 1. Problem Problem inadequate intake from enteral feeding Etiology current TF regimen not meeting nutritional needs Signs/Symptoms: current TF providing 960kcal and 44g protein Malnutrition Related to Morbid Obesity Malnutrition related to morbid obesity No Intervention/Recommendation Comments 1. Recommend to increase TF rate to Jevity 1.2 at 55ml/hr x 20hr. It provides 1320kcal, 61g protein, 888ml free water, meeting 100% of nutritional needs. CALEB Rdz notified. 2. Monitor TF rate, tolerance, wt, skin integrity and labs 3. F/U as high risk in 2-3 days, 03/22-2/ Expected Outcomes/Goals Expected Outcomes/Goals 1. Pt to meet at least 90% of nutritional needs via nutrition support with tolerance 2. Wt stability, skin to remain intact, labs to approach WNL.
[2018-04-01] MEDS: Zinc Oxide Ointment 60 gm TP SCH (23:03)
[2018-04-02] MEDS: Meropenem 1 GM in Sodium Chloride 0.9% 100 ML IV SCH ×2 (03:51→12:10)
[2018-04-02] MEDS: INSULIN LISPRO SLIDING SCALE 100 UNITS/ML UNIT SUBQ SCH ×4 (05:07→23:53)
[2018-04-02 06:47] LABS: ANION GAP 12.8 (7.0-16.0); BUN - UREA NITROGEN 14 mg/dL (7-25); CALCIUM SERUM 8.3 mg/dL (8.6-10.3); CARBON DIOXIDE 28.7 mEq/L (21.0-31.0); CHLORIDE 104 mEq/L (98-107); CREATININE - SERUM 0.4 mg/dL (0.6-1.2); GFR AFRICAN-AMERICAN > 60.0 ml/min (>90); GFR NON AFRICAN-AMERICAN > 60.0 ml/min; GLUCOSE 111 mg/dL (70-105); MAGNESIUM 1.8 mg/dL (1.9-2.7); PHOSPHOROUS 2.6 mg/dL (2.5-5.0); POTASSIUM SERUM 3.5 mEq/L (3.5-5.1); SODIUM SERUM 142 mEq/L (136-145)
--- NOTE | 2018-04-02 09:12 | Diagnostic Imaging Report ---
KUB abdominal film HISTORY: Nasogastric tube placement, pain The exam demonstrates a nasogastric tube projecting over the left upper abdomen over the area of the stomach. Residual contrast noted in nondilated colon. Bowel gas pattern otherwise nonspecific. No free and. No air. Severe scoliosis of the spine along with extensive deformity noted about the pelvis and hips. IMPRESSION: 1. Nasogastric tube projecting over the gastric. 2. Residual contrast within nondilated large bowel along with stool. Degree of constipation cannot be excluded. Bowel gas pattern otherwise nonspecific. 3. Severe chronic skeletal deformities
[2018-04-02] MEDS: Docusate Sodium 100 mg/10 mL UD GT SCH ×2 (10:33→17:05)
[2018-04-02] MEDS: carBAMazepine 200 mg/10 mL UDC GT SCH ×2 (10:34→21:16)
[2018-04-02] MEDS: Lactobacillus Rhamnosus GG 15 Billion CFU CAP.SPRINK PO SCH (10:34)
[2018-04-02] MEDS: Calcium Carb/Vit D 500 mg/200 U Tab GT SCH ×2 (10:34→17:05)
[2018-04-02] MEDS: Multivitamin w/ Minerals 15 mL UDC GT SCH (10:35)
--- NOTE | 2018-04-02 15:14 | Internal Medicine Prog Note ---
Internal Medicine Subjective - Subjective Service Date: 04/02/18 (GT SITE WITH LEAKAGE PER STAFF) Patient seen and examined:: with staff Patient is:: awake, non-verbal Per staff patient has:: no adverse event (TPN STARTED) Internal Medicine Objective - Results Result Diagrams: 04/01/18 06:15 04/02/18 06:00 Recent Labs: Laboratory Last Values WBC 9.4 Th/cmm (4.8-10.8) 04/01/18 06:15 RBC 3.89 Mil/cmm (3.80-5.10) 04/01/18 06:15 Hgb 12.8 gm/dL (12-16) 04/01/18 06:15 Hct 38.5 % (41.0-60) L 04/01/18 06:15 MCV 98.9 fl (81-100) 04/01/18 06:15 MCH 32.9 pg (27.0-31.0) H 04/01/18 06:15 MCHC Differential 33.2 pg (28.0-36.0) 04/01/18 06:15 RDW 10.9 % (11.5-20.0) L 04/01/18 06:15 Plt Count 223 Th/cmm (150-400) 04/01/18 06:15 MPV 10.2 fl 04/01/18 06:15 Neutrophils % 62.3 % (40.0-80.0) 04/01/18 06:15 Lymphocytes % 22.6 % (20.0-50.0) 04/01/18 06:15 Monocytes % 10.7 % (2.0-10.0) H 04/01/18 06:15 Eosinophils % 3.5 % (0.0-5.0) 04/01/18 06:15 Basophils % 0.9 % (0.0-2.0) 04/01/18 06:15 ESR 41 mm/hr (0-30) H 03/22/18 04:50 Sodium 142 mEq/L (136-145) 04/02/18 06:00 Potassium 3.5 mEq/L (3.5-5.1) 04/02/18 06:00 Chloride 104 mEq/L (98-107) 04/02/18 06:00 Carbon Dioxide 28.7 mEq/L (21.0-31.0) 04/02/18 06:00 Anion Gap 12.8 (7.0-16.0) 04/02/18 06:00 BUN 14 mg/dL (7-25) 04/02/18 06:00 Creatinine 0.4 mg/dL (0.6-1.2) L 04/02/18 06:00 Est GFR ( Amer) > 60.0 ml/min (>90) 04/02/18 06:00 Est GFR (Non-Af Amer) > 60.0 ml/min 04/02/18 06:00 BUN/Creatinine Ratio 35.0 04/02/18 06:00 Glucose 111 mg/dL (70-105) H 04/02/18 06:00 POC Glucose 127 MG/DL (70 - 105) H 04/02/18 10:06 Whole Bld Lactic Acid 1.20 mmol/L (0.60-1.99) 03/20/18 19:15 Calcium 8.3 mg/dL (8.6-10.3) L 04/02/18 06:00 Phosphorus 2.6 mg/dL (2.5-5.0) 04/02/18 06:00 Magnesium 1.8 mg/dL (1.9-2.7) L 04/02/18 06:00 Total Bilirubin 0.5 mg/dL (0.3-1.0) 03/30/18 05:25 Direct Bilirubin 0.47 mg/dL (0.0-0.2) H 03/29/18 04:35 AST 32 U/L (13-39) 03/30/18 05:25 ALT 46 U/L (7-52) 03/30/18 05:25 Alkaline Phosphatase 79 U/L (34-104) 03/30/18 05:25 C-Reactive Protein < 0.2 mg/dL (0.0-0.9) 03/22/18 04:50 Total Protein 6.3 gm/dL (6.0-8.3) 03/30/18 05:25 Albumin 3.1 gm/dL (3.7-5.3) L 03/30/18 05:25 Globulin 3.2 gm/dL 03/30/18 05:25 Albumin/Globulin Ratio 1.0 (1.0-1.8) 03/30/18 05:25 Prealbumin 14 mg/dL (10-36) 03/29/18 04:35 Triglycerides 72 mg/dL (<150) 03/29/18 04:35 Cholesterol 140 mg/dL (<200) 03/29/18 04:35 LDL Cholesterol Direct 87 mg/dL (75-193) 03/21/18 04:45 HDL Cholesterol 65 mg/dL (23-92) 03/21/18 04:45 TSH 1.11 uIU/ml (0.34-5.60) 03/21/18 04:45 Vancomycin Trough 14.4 ug/mL (5-10) H 03/24/18 20:28 - Physical Exam Vitals and I&O: Vital Signs Temp 96.8 F 04/02/18 12:00 Pulse 107 04/02/18 12:00 Resp 18 04/02/18 12:00 BP 163/93 04/02/18 12:00 Pulse Ox 99 04/02/18 12:00 Intake & Output 04/01/18 04/02/18 04/02/18 18:59 06:59 18:59 Intake Total 645 305 Balance 645 305 Weight (lbs) 43.998 kg Intake: Intake, IV Amount 205 305 Levetiracetam 500 mg In 105 105 Sodium Chloride 0.9% 100 ml @ 400 mls/hr IV Q12H [facility] Rx#:[id number] Meropenem 1 gm In Sodium 100 200 Chloride 0.9% 100 ml @ 100 mls/hr IV Q8H [facility] Rx# :[id number] Tube Feeding 120 Other 320 Other: Weight Source Patient stated Active Medications: Current Medications Acetaminophen (Tylenol 650mg/20.3ml Suspension) 650 mg GT Q4HR PRN PRN Reason: Pain Or Fever >100 Stop: 05/20/18 10:46 Albuterol/Ipratropium (Duoneb Neb) 3 ml HHN [id number] PRN PRN Reason: sob Stop: 05/20/18 10:46 Last Admin: 04/01/18 07:45 Dose: 3 ml Bisacodyl (Dulcolax 10 Mg Supp) 10 mg RC Q96H PRN PRN Reason: Constipation Stop: 05/20/18 10:46 Last Admin: 03/22/18 19:42 Dose: 10 mg Calcium/Vitamin D (Oscal W/Vitamin D) 2 tab GT BID [facility] Stop: 05/31/18 08:59 Last Admin: 04/02/18 10:34 Dose: Not Given Carbamazepine (Tegretol) 400 mg GT Q12HR@0900,2100 [facility] Stop: 05/20/18 10:59 Last Admin: 04/02/18 10:34 Dose: Not Given Docusate Sodium (Colace) 200 mg GT BID [facility] Stop: 05/20/18 10:59 Last Admin: 04/02/18 10:33 Dose: Not Given Hydralazine HCl (Apresoline 20 Mg/Ml) 20 mg IV Q6HR PRN PRN Reason: SBP>160 Stop: 05/23/18 13:11 Levetiracetam 500 mg/ Sodium (Chloride) 105 mls @ 400 mls/hr IV Q12H [facility] Stop: 05/21/18 22:59 Last Admin: 04/02/18 11:33 Dose: 100 mls/hr Meropenem 1 gm/ Sodium (Chloride) 100 mls @ 100 mls/hr IV Q8H [facility] Stop: 05/30/18 11:35 Last Admin: 04/02/18 12:10 Dose: 100 mls/hr Insulin Human Lispro (Humalog Insulin Sliding Scale) 0 units SUBQ Q6H [facility]; Protocol Stop: 05/22/18 15:59 Last Admin: 04/02/18 10:34 Dose: Not Given Lactobacillus Rhamnosus (Culturelle 15b) 1 each PO DAILY [facility] Stop: 05/25/18 08:59 Last Admin: 04/02/18 10:34 Dose: Not Given Lactulose (Cephulac) 10 gm GT DAILY PRN PRN Reason: Constipation Last Admin: 03/22/18 13:47 Dose: 10 gm Magnesium Hydroxide (Milk Of Magnesia) 30 ml GT Q72H PRN PRN Reason: Constipation Stop: 05/20/18 10:48 Metoprolol Tartrate (Lopressor) 12.5 mg GT QPM [facility] Stop: 05/20/18 16:59 Last Admin: 03/31/18 17:13 Dose: 12.5 mg Miscellaneous (Probiotic Screen) 1 ea MC PRN PRN PRN Reason: PROTOCOL Stop: 05/24/18 17:10 Multivitamins/Minerals (Theragran M) 15 ml GT DAILY [facility] Stop: 05/31/18 08:59 Last Admin: 04/02/18 10:35 Dose: Not Given Petrolatum (Zinc Oxide) 1 appl TP HS [facility] Stop: 05/21/18 20:59 Last Admin: 04/01/18 23:03 Dose: Not Given Sodium Phosphate (Fleet Enema) 135 ml RC Q96H PRN PRN Reason: IF DULCOLAX INEFFECTIVE Stop: 05/20/18 10:46 General: thin, NAD HEENT: NC/AT, PERRLA, EOMI Neck: No JVD, no No thyromegaly Lungs: CTAB Cardiovascular: RRR Abdomen: soft, non-tender, +GT - redness, +GT - discharge, other (GT SITE WITH LEAKAGE) Extremities: clear Neurological: no change, spastic - Procedures Procedures: Procedures Procedure Code Date ASPIR CURETT UTERUS NEC 69.59 06/12/11 CHANGE FEEDING DEVICE IN UP INTEST TRACT, CONDITIONER TUMBLER APPROACH [id number] 01/27/16 CHANGE GASTROSTOMY TUBE 49591 05/21/15 DILATION AND CURETTAGE 89752 06/12/11 EGD BIOPSY SINGLE/MULTIPLE 45180 07/15/16 EXCISION OF STOMACH, ENDO, DIAGN [id number] 07/15/16 INSERTION OF FEEDING DEVICE INTO STOMACH, ENDO [id number] 07/15/16 LAPARO PROC ABDM/PER/OMENT 44755 07/29/13 LAPAROSCOP APPENDECTOMY 47.01 07/29/13 LAPAROSCOP LYSIS-PERITONEAL ADHES 54.51 07/29/13 LAPAROSCOPY APPENDECTOMY 56279 07/29/13 REPLACE GASTROSTOMY TUBE 97.02 07/26/14 Internal Medicine Assmt/Plan - Assessment Assessment: 1. GTUBE MALFUNCTION WITH LEAKAGE 2. GT SITE CELLULITIS/DRAINAGE (GC FISTULA) 3. COMPLEX WOUND INFX-PSEUDOMONAS AERUGINOSA 3. HISTORY OF DYSPHAGIA-PEG PLACEMENT 4. HX OF CONSTIPATION 5. HYPONATREMIA--RESOLVED 6. HX OF SEIZURE DISORDER-STABLE 7. HX OF INTELLECTUAL DISABILITY 8. S/P PICC LINE PLACEMENT 9. ELECTROLYTE IMBALANCE-REPLETE/MONITOR. - Plan Plan: CONT WITH CURRENT TX PLAN AND MGT CONT TO HOLD GT FEEDS FOR NOW CONT WITH IV ABXS (MEROPENEM), AND LOCAL WOUND CARE. ID EVAL CONT WITH NGT FEEDS AND MONITOR FOR GT SITE LEAKAGE. REPLETE LYTES/MONITOR. GI FU, ID/SURGICAL EVAL Nutritional Asmnt/Malnutr-PDOC - Dietary Evaluation Malnutrition Findings (Please click <Entered> for more info): Nutritional Asmnt/Malnutrition Start: 03/21/18 13: 29 Text: Status: Complete Freq: Protocol: Document 03/21/18 13:29 LCHEBERG (Rec: 03/21/18 13:45 LCHENG [email or web address]) Nutritional Asmnt/Malnutrition Patient General Information Nutritional Screening High Risk Consult Diagnosis displacement of Gtube, Gtube site cellulitis Pertinent Medical Hx/Surgical Hx HTN, PUD?GERD, seizures, hepatitis B and C, developmentally disabled, quadriplegic Subjective Information Consult reiceved for shayna score 11. Pt seen in bed, non verbal noted. Per nurse pt is tolerating current tube feeding. CALEB Rdz asked about TF rate since pt was receiving Jevity 1.5 [facility] and [facility] only carries Jevity 1.2. Current Diet Order/ Nutrition Support Jevity 1.2 at 40ml/hr x 20hr, providing 960kcal and 44g protein Pertinent Medications oscal w/vit D, colace, nacl 0. 9%, vancomycin Pertinent Labs 2/4 Cl 108, Cr 0.4 2/3 Cr 0.4, glucose 109, alb 3 .6 Nutritional Hx/Data Height 1.6 m Height (Calculated Centimeters) 160.0 Current Weight (lbs) 45.359 kg Weight (Calculated Kilograms) 45.4 Weight (Calculated Grams) 11736.2 [place] Body Weight 115 Body Mass Index (BMI) 17.6 Weight Status Underweight GI Symptoms GI Symptoms None Last BM not indicated Usual diet at home Jevity 1.5 at 40ml/hr x 20hr at [facility] Skin Integrity/Comment: cellulitis reddened to Gtube site shayna 11 Estimated Nutritional Goals Calories/Kcals/Kg 25-30 IBW 52kg Kcals Calculated 7962-1156 Protein g/k-1.2 Protein Calculated 52-62 Fluid: ml 1300-1560ml (1ml/kcal) Nutritional Problem 1. Problem Problem inadequate intake from enteral feeding Etiology current TF regimen not meeting nutritional needs Signs/Symptoms: current TF providing 960kcal and 44g protein Malnutrition Related to Morbid Obesity Malnutrition related to morbid obesity No Intervention/Recommendation Comments 1. Recommend to increase TF rate to Jevity 1.2 at 55ml/hr x 20hr. It provides 1320kcal, 61g protein, 888ml free water, meeting 100% of nutritional needs. RN Kajal notified. 2. Monitor TF rate, tolerance, wt, skin integrity and labs 3. F/U as high risk in 2-3 days, 2/5-2/6 Expected Outcomes/Goals Expected Outcomes/Goals 1. Pt to meet at least 90% of nutritional needs via nutrition support with tolerance 2. Wt stability, skin to remain intact, labs to approach WNL.
[2018-04-02] MEDS: Amino Acids 3% / Electrolytes 1,000 ML IV SCH (15:59)
[2018-04-02] MEDS ORDERED: Ciprofloxacin 400mg Premix PB 400 MG/200 ML BAG IV ONE (21:08)
[2018-04-02] MEDS: Ciprofloxacin 400mg Premix PB 400 MG/200 ML BAG IV SCH (21:22)
[2018-04-02] MEDS: Zinc Oxide Ointment 60 gm TP SCH (22:03)
[2018-04-03] MEDS: INSULIN LISPRO SLIDING SCALE 100 UNITS/ML UNIT SUBQ SCH ×3 (05:09→22:28)
[2018-04-03] MEDS: Amino Acids 3% / Electrolytes 1,000 ML IV SCH (06:05)
[2018-04-03 06:36] LABS: ANION GAP 11.6 (7.0-16.0); BUN - UREA NITROGEN 14 mg/dL (7-25); CALCIUM SERUM 8.6 mg/dL (8.6-10.3); CARBON DIOXIDE 29.9 mEq/L (21.0-31.0); CHLORIDE 101 mEq/L (98-107); CREATININE - SERUM 0.4 mg/dL (0.6-1.2); GFR AFRICAN-AMERICAN > 60.0 ml/min (>90); GFR NON AFRICAN-AMERICAN > 60.0 ml/min; GLUCOSE 107 mg/dL (70-105); PHOSPHOROUS 2.2 mg/dL (2.5-5.0); POTASSIUM SERUM 3.5 mEq/L (3.5-5.1); SODIUM SERUM 139 mEq/L (136-145)
--- NOTE | 2018-04-03 07:49 | Consultation ---
DATE OF CONSULTATION: 04/02/2018 REFERRING PHYSICIAN: Dr. Loaiza. REASON FOR CONSULTATION: G-tube site cellulitis with NG tube coming out from the gastrocutaneous fistula. HISTORY OF PRESENT ILLNESS: The patient is a 62-year-old female with a past medical history of hypertension, peptic ulcers, seizure disorder, hepatitis B, hepatitis C, developmental delayed, quadriplegic admitted on 03/20/2018 for dislodgement of the G-tube. In the place of G-tube they put a Scales catheter and sent to the ER for further evaluation and management. There was some brown yellow pus present in the G-tube site. On initial evaluation, the patient was afebrile and WBC count was 10,600. The wound culture grew Pseudomonas aeruginosa. He has had radiologic and awake. Initially the condition improved. The cellulitis improved. NG tube was placed in for feeding. Last night, it was noted the tip of the NG tube was coming out from the gastric arteriovenous fistula at G-tube site. Feeding was put on hold. There is surrounding erythema and some active bleeding noted. ID consult was called for antibiotic management and further evaluation. The patient has no fever, no chills. ANTIBIOTIC JANSEN: The patient is receiving meropenem. The patient was treated with ciprofloxacin. Ciprofloxacin was changed to meropenem. PAST MEDICAL HISTORY: Hepatitis B, hepatitis C, cholelithiasis, dysphagia, G-tube placement, history of GI bleed, seizure disorder, mental retardation, dementia, quadriplegia, hypertension, functional quadriplegia. ALLERGIES: NKDA. MEDICATIONS: Per medication reconciliation sheet. Antibiotic jansen, the patient is receiving meropenem. SOCIAL HISTORY: The patient lives in a nursing facility. No history of smoking, alcohol or drug use. REVIEW OF SYSTEMS: GENERAL: The patient has no fever, no chills. HEENT: No diplopia, no photophobia, no sore throat. RESPIRATORY: No cough, no shortness of breath. CARDIOVASCULAR: No chest pain or palpitation. GASTROINTESTINAL: No nausea, no vomiting, no diarrhea, no constipation. Has G-tube site erythema with NG tube coming out from the exit site. GENITOURINARY: No dysuria. NEUROLOGIC: No headache, no dizziness, no focal weakness. PHYSICAL EXAMINATION: VITAL SIGNS: Current vital signs show temperature is 97.1 degrees Fahrenheit, pulse 108, respirations 14, blood pressure 150/86, oxygen saturation 98%. GENERAL: The patient is comfortable lying in the bed, not in acute distress, cachectic. HEENT: Head is normocephalic, atraumatic. Oral cavity moist, pink tongue. Eyes: Pallor is present, no icterus. NECK: Supple, no JVD, no carotid bruit. Trachea midline. The patient had NG tube in place. No use of accessory neck muscle. CHEST: Bilateral breath sounds. No crackles or wheezing. HEART: S1, S2 within normal limits. Regular rhythm. No murmur or gallop. ABDOMEN: Soft, nontender, nondistended. The patient has gastrocutaneous fistula. G-tube site and distal part of the NG tube is coming out from the fistula and there is some bleeding and clots. There is surrounding erythema and excoriation. EXTREMITIES: No cyanosis, no clubbing, no edema. Mild flexion contracture present. NEUROLOGIC: Alert and awake. LABORATORY DATA: Current lab shows WBC count is 9400, hemoglobin 12.8, hematocrit 38.5, platelets are 223,000, neutrophils 62.3%. Sodium 142, potassium 3.5, chloride 104, bicarbonate is 29, BUN is 14, creatinine 0.4, glucose is 111. Vancomycin trough is 14.4. The G-tube site culture grew Pseudomonas aeruginosa. Blood culture had no growth and nares negative. CT scan of the abdomen and pelvis suggested cholelithiasis, multiple nonobstructing bilateral calculi, fecal impaction. G-tube in the stomach with extravasated contrast material on the skin surface, oral contrast progresses normal ____ small bowel, severe deformity of the hip joints bilaterally. IMPRESSION: 1. G-tube site cellulitis excoriation. 2. Misplacement of the NG tube with distal and coming out from the gastrocutaneous fistula to the abdominal surface. 3. Hypertension. 4. Mental retardation. 5. Quadriplegia. 6. Hepatitis B and C, chronic. 7. Dislodgement of G-tube. 8. Dysphagia. PLAN AND RECOMMENDATIONS: We will pull out G-tube and NG was done without any complication. We will put a pressure dressing on the G-tube site. Hold the NG tube feeding for further orders. Discontinue meropenem. Resume Cipro IV. Wound care is the mainstay of the treatment. Thank you, Dr. Loaiza for involving me in taking care of this patient. The patient will need surgical consult for the correction of the gastrocutaneous fistula. Thank you, Dr. Loaiza for involving me in taking care of this patient. JOB# [id number] [email or web address]
[2018-04-03] MEDS: Albuterol/Ipratropium Neb 3 ML AERS HHN PRN (08:11)
--- NOTE | 2018-04-03 09:40 | GI Progress Note ---
Subjective - Review of Systems Service Date: 04/03/18 Events since last encounter: Pt had NG placed and removed because tip was projecting out of GC fistula site Objective - Results Result Diagrams: 04/01/18 06:15 04/03/18 05:30 Recent Labs: Laboratory Last Values WBC 9.4 Th/cmm (4.8-10.8) 04/01/18 06:15 RBC 3.89 Mil/cmm (3.80-5.10) 04/01/18 06:15 Hgb 12.8 gm/dL (12-16) 04/01/18 06:15 Hct 38.5 % (41.0-60) L 04/01/18 06:15 MCV 98.9 fl (81-100) 04/01/18 06:15 MCH 32.9 pg (27.0-31.0) H 04/01/18 06:15 MCHC Differential 33.2 pg (28.0-36.0) 04/01/18 06:15 RDW 10.9 % (11.5-20.0) L 04/01/18 06:15 Plt Count 223 Th/cmm (150-400) 04/01/18 06:15 MPV 10.2 fl 04/01/18 06:15 Neutrophils % 62.3 % (40.0-80.0) 04/01/18 06:15 Lymphocytes % 22.6 % (20.0-50.0) 04/01/18 06:15 Monocytes % 10.7 % (2.0-10.0) H 04/01/18 06:15 Eosinophils % 3.5 % (0.0-5.0) 04/01/18 06:15 Basophils % 0.9 % (0.0-2.0) 04/01/18 06:15 ESR 41 mm/hr (0-30) H 03/22/18 04:50 Sodium 139 mEq/L (136-145) 04/03/18 05:30 Potassium 3.5 mEq/L (3.5-5.1) 04/03/18 05:30 Chloride 101 mEq/L (98-107) 04/03/18 05:30 Carbon Dioxide 29.9 mEq/L (21.0-31.0) 04/03/18 05:30 Anion Gap 11.6 (7.0-16.0) 04/03/18 05:30 BUN 14 mg/dL (7-25) 04/03/18 05:30 Creatinine 0.4 mg/dL (0.6-1.2) L 04/03/18 05:30 Est GFR ( Amer) > 60.0 ml/min (>90) 04/03/18 05:30 Est GFR (Non-Af Amer) > 60.0 ml/min 04/03/18 05:30 BUN/Creatinine Ratio 35.0 04/03/18 05:30 Glucose 107 mg/dL (70-105) H 04/03/18 05:30 POC Glucose 114 MG/DL (70 - 105) H 04/03/18 09:08 Whole Bld Lactic Acid 1.20 mmol/L (0.60-1.99) 03/20/18 19:15 Calcium 8.6 mg/dL (8.6-10.3) 04/03/18 05:30 Phosphorus 2.2 mg/dL (2.5-5.0) L 04/03/18 05:30 Magnesium 2.0 mg/dL (1.9-2.7) 04/03/18 05:30 Total Bilirubin 0.5 mg/dL (0.3-1.0) 03/30/18 05:25 Direct Bilirubin 0.47 mg/dL (0.0-0.2) H 03/29/18 04:35 AST 32 U/L (13-39) 03/30/18 05:25 ALT 46 U/L (7-52) 03/30/18 05:25 Alkaline Phosphatase 79 U/L (34-104) 03/30/18 05:25 C-Reactive Protein < 0.2 mg/dL (0.0-0.9) 03/22/18 04:50 Total Protein 6.3 gm/dL (6.0-8.3) 03/30/18 05:25 Albumin 3.1 gm/dL (3.7-5.3) L 03/30/18 05:25 Globulin 3.2 gm/dL 03/30/18 05:25 Albumin/Globulin Ratio 1.0 (1.0-1.8) 03/30/18 05:25 Prealbumin 14 mg/dL (10-36) 03/29/18 04:35 Triglycerides 72 mg/dL (<150) 03/29/18 04:35 Cholesterol 140 mg/dL (<200) 03/29/18 04:35 LDL Cholesterol Direct 87 mg/dL (75-193) 03/21/18 04:45 HDL Cholesterol 65 mg/dL (23-92) 03/21/18 04:45 TSH 1.11 uIU/ml (0.34-5.60) 03/21/18 04:45 Vancomycin Trough 14.4 ug/mL (5-10) H 03/24/18 20:28 - Physical Exam Vitals and I&O: Vital Signs Temp 98.5 F 04/03/18 08:10 Pulse 112 04/03/18 08:13 Resp 16 04/03/18 08:13 BP 142/89 04/03/18 08:10 Pulse Ox 99 04/03/18 08:13 Intake & Output 04/02/18 04/03/18 04/03/18 18:59 06:59 18:59 Intake Total 105 1000 Balance 105 1000 Weight (lbs) 43.998 kg Intake: Intake, IV Amount 105 1000 Amino Acids 3% / 1000 Electrolytes 1,000 ml @ 75 mls/hr IV .[id number] [facility] Rx#:[id number] Levetiracetam 500 mg In 105 Sodium Chloride 0.9% 100 ml @ 400 mls/hr IV Q12H [facility] Rx#:[id number] Other: # Voids 2 # Bowel Movements 0 Weight Source Bedscale Active Medications: Current Medications Acetaminophen (Tylenol 650mg/20.3ml Suspension) 650 mg GT Q4HR PRN PRN Reason: Pain Or Fever >100 Stop: 05/20/18 10:46 Albuterol/Ipratropium (Duoneb Neb) 3 ml HHN [id number] PRN PRN Reason: sob Stop: 05/20/18 10:46 Last Admin: 04/03/18 08:11 Dose: 3 ml Bisacodyl (Dulcolax 10 Mg Supp) 10 mg RC Q96H PRN PRN Reason: Constipation Stop: 05/20/18 10:46 Last Admin: 03/22/18 19:42 Dose: 10 mg Calcium/Vitamin D (Oscal W/Vitamin D) 2 tab GT BID [facility] Stop: 05/31/18 08:59 Last Admin: 04/02/18 17:05 Dose: Not Given Carbamazepine (Tegretol) 400 mg GT Q12HR@0900,2100 [facility] Stop: 05/20/18 10:59 Last Admin: 04/02/18 21:16 Dose: Not Given Docusate Sodium (Colace) 200 mg GT BID [facility] Stop: 05/20/18 10:59 Last Admin: 04/02/18 17:05 Dose: Not Given Hydralazine HCl (Apresoline 20 Mg/Ml) 20 mg IV Q6HR PRN PRN Reason: SBP>160 Stop: 05/23/18 13:11 Levetiracetam 500 mg/ Sodium (Chloride) 105 mls @ 400 mls/hr IV Q12H [facility] Stop: 05/21/18 22:59 Last Admin: 04/02/18 23:04 Dose: 100 mls/hr Ciprofloxacin (Cipro 400mg Premix Pb) 400 mg in 200 mls @ 200 mls/hr IV Q12HR [facility] Stop: 06/01/18 20:59 Last Admin: 04/02/18 21:22 Dose: 200 mls/hr Sodium Chloride 40 meq/Potassium Chloride 40 meq/Calcium Gluconate 1 gm/ Potassium Phosphate 20 mmole/Amino Acids/ Fat Emulsion Intravenous 1,246.6667 mls @ 75 mls/hr IV .[id number] [facility] Stop: 06/02/18 15:59 Insulin Human Lispro (Humalog Insulin Sliding Scale) 0 units SUBQ Q6H [facility]; Protocol Stop: 05/22/18 15:59 Last Admin: 04/03/18 05:09 Dose: Not Given Lactobacillus Rhamnosus (Culturelle 15b) 1 each PO DAILY [facility] Stop: 05/25/18 08:59 Last Admin: 04/02/18 10:34 Dose: Not Given Lactulose (Cephulac) 10 gm GT DAILY PRN PRN Reason: Constipation Last Admin: 03/22/18 13:47 Dose: 10 gm Magnesium Hydroxide (Milk Of Magnesia) 30 ml GT Q72H PRN PRN Reason: Constipation Stop: 05/20/18 10:48 Metoprolol Tartrate (Lopressor) 12.5 mg GT QPM [facility] Stop: 05/20/18 16:59 Last Admin: 04/02/18 17:05 Dose: Not Given Miscellaneous (Probiotic Screen) 1 ea PRN PRN PRN Reason: PROTOCOL Stop: 05/24/18 17:10 Miscellaneous (Ppn Per Pharmacy) 1 ea PRN PRN PRN Reason: PROTOCOL Stop: 06/01/18 15:22 Petrolatum (Zinc Oxide) 1 appl TP HS [facility] Stop: 05/21/18 20:59 Last Admin: 04/02/18 22:03 Dose: Not Given Sodium Phosphate (Fleet Enema) 135 ml RC Q96H PRN PRN Reason: IF DULCOLAX INEFFECTIVE Stop: 05/20/18 10:46 General: Alert HEENT: Atraumatic Neck: Supple Cardiovascular: Regular rate Lungs: Clear to auscultation Abdomen: Bowel sounds, Soft, Other (GC fistula with erythema, bandaged. Some purulent drainage), no Tender, no Distended, no Rebound, no Mass, no Guarding Extremities: no Edema Neurological: Sensation intact Skin: Rash Psych/Mental Status: Mood NL - Procedures Procedures: Procedures Procedure Code Date ASPIR CURETT UTERUS NEC 69.59 06/12/11 CHANGE FEEDING DEVICE IN UP INTEST TRACT, OUTSOLES CHANNEL OPENER APPROACH [id number] 01/27/16 CHANGE GASTROSTOMY TUBE 50886 05/21/15 DILATION AND CURETTAGE 37958 06/12/11 EGD BIOPSY SINGLE/MULTIPLE 33047 07/15/16 EXCISION OF STOMACH, ENDO, DIAGN [id number] 07/15/16 INSERTION OF FEEDING DEVICE INTO STOMACH, ENDO [id number] 07/15/16 [facility] PROC ABDM/PER/OMENT 40894 07/29/13 LAPAROSCOP APPENDECTOMY 47.01 07/29/13 LAPAROSCOP LYSIS-PERITONEAL ADHES 54.51 07/29/13 LAPAROSCOPY APPENDECTOMY 89145 07/29/13 REPLACE GASTROSTOMY TUBE 97.02 07/26/14 Assessment/Plan - Assessment Assessment: Assessment: # G tube site cellulitis # Dysphagia # Developmental delay As of 03/25, the site looked worse thus the G tube was pulled. Will need to wait for the area to heal prior to inserting a new one On 03/30, there is still erythema and some leakage from the area. Unclear if proper wound care is being applied to this area. On 04/01, the site looks more inflamed. Does not appear to be leakage from NG feeding, but infection on the skin is not improving. on 04/02 - NG tube was pulled bc of tip extruding out of gc fistula site Plan: - appreciate ID consult to help with unresolving cellulitis. - agree with holding NG feedings, will allow site to heal faster - new G tube will be inserted after the site heals. This can take up to 2 weeks - wound care consult, this service should see the pt daily - nystatin and zinc cream orderd
--- NOTE | 2018-04-03 13:15 | Internal Medicine Prog Note ---
Internal Medicine Subjective - Subjective Service Date: 04/03/18 (above noted and reviewed. NGT removed-protruding from GC [facility]) Patient is:: awake, non-verbal Per staff patient has:: no adverse event (TPN STARTED) Internal Medicine Objective - Results Result Diagrams: 04/01/18 06:15 04/03/18 05:30 Recent Labs: Laboratory Last Values WBC 9.4 Th/cmm (4.8-10.8) 04/01/18 06:15 RBC 3.89 Mil/cmm (3.80-5.10) 04/01/18 06:15 Hgb 12.8 gm/dL (12-16) 04/01/18 06:15 Hct 38.5 % (41.0-60) L 04/01/18 06:15 MCV 98.9 fl (81-100) 04/01/18 06:15 MCH 32.9 pg (27.0-31.0) H 04/01/18 06:15 MCHC Differential 33.2 pg (28.0-36.0) 04/01/18 06:15 RDW 10.9 % (11.5-20.0) L 04/01/18 06:15 Plt Count 223 Th/cmm (150-400) 04/01/18 06:15 MPV 10.2 fl 04/01/18 06:15 Neutrophils % 62.3 % (40.0-80.0) 04/01/18 06:15 Lymphocytes % 22.6 % (20.0-50.0) 04/01/18 06:15 Monocytes % 10.7 % (2.0-10.0) H 04/01/18 06:15 Eosinophils % 3.5 % (0.0-5.0) 04/01/18 06:15 Basophils % 0.9 % (0.0-2.0) 04/01/18 06:15 ESR 41 mm/hr (0-30) H 03/22/18 04:50 Sodium 139 mEq/L (136-145) 04/03/18 05:30 Potassium 3.5 mEq/L (3.5-5.1) 04/03/18 05:30 Chloride 101 mEq/L (98-107) 04/03/18 05:30 Carbon Dioxide 29.9 mEq/L (21.0-31.0) 04/03/18 05:30 Anion Gap 11.6 (7.0-16.0) 04/03/18 05:30 BUN 14 mg/dL (7-25) 04/03/18 05:30 Creatinine 0.4 mg/dL (0.6-1.2) L 04/03/18 05:30 Est GFR ( Amer) > 60.0 ml/min (>90) 04/03/18 05:30 Est GFR (Non-Af Amer) > 60.0 ml/min 04/03/18 05:30 BUN/Creatinine Ratio 35.0 04/03/18 05:30 Glucose 107 mg/dL (70-105) H 04/03/18 05:30 POC Glucose 114 MG/DL (70 - 105) H 04/03/18 09:08 Whole Bld Lactic Acid 1.20 mmol/L (0.60-1.99) 03/20/18 19:15 Calcium 8.6 mg/dL (8.6-10.3) 04/03/18 05:30 Phosphorus 2.2 mg/dL (2.5-5.0) L 04/03/18 05:30 Magnesium 2.0 mg/dL (1.9-2.7) 04/03/18 05:30 Total Bilirubin 0.5 mg/dL (0.3-1.0) 03/30/18 05:25 Direct Bilirubin 0.47 mg/dL (0.0-0.2) H 03/29/18 04:35 AST 32 U/L (13-39) 03/30/18 05:25 ALT 46 U/L (7-52) 03/30/18 05:25 Alkaline Phosphatase 79 U/L (34-104) 03/30/18 05:25 C-Reactive Protein < 0.2 mg/dL (0.0-0.9) 03/22/18 04:50 Total Protein 6.3 gm/dL (6.0-8.3) 03/30/18 05:25 Albumin 3.1 gm/dL (3.7-5.3) L 03/30/18 05:25 Globulin 3.2 gm/dL 03/30/18 05:25 Albumin/Globulin Ratio 1.0 (1.0-1.8) 03/30/18 05:25 Prealbumin 14 mg/dL (10-36) 03/29/18 04:35 Triglycerides 72 mg/dL (<150) 03/29/18 04:35 Cholesterol 140 mg/dL (<200) 03/29/18 04:35 LDL Cholesterol Direct 87 mg/dL (75-193) 03/21/18 04:45 HDL Cholesterol 65 mg/dL (23-92) 03/21/18 04:45 TSH 1.11 uIU/ml (0.34-5.60) 03/21/18 04:45 Vancomycin Trough 14.4 ug/mL (5-10) H 03/24/18 20:28 - Physical Exam Vitals and I&O: Vital Signs Temp 98.4 F 04/03/18 11:18 Pulse 95 04/03/18 11:18 Resp 18 04/03/18 11:18 BP 139/87 04/03/18 11:18 Pulse Ox 98 04/03/18 11:18 Intake & Output 04/02/18 04/03/18 04/03/18 18:59 06:59 18:59 Intake Total 105 1000 Balance 105 1000 Weight (lbs) 43.998 kg Intake: Intake, IV Amount 105 1000 Amino Acids 3% / 1000 Electrolytes 1,000 ml @ 75 mls/hr IV .[id number] [facility] Rx#:[id number] Levetiracetam 500 mg In 105 Sodium Chloride 0.9% 100 ml @ 400 mls/hr IV Q12H [facility] Rx#:[id number] Other: # Voids 2 # Bowel Movements 0 Weight Source Bedscale Active Medications: Current Medications Acetaminophen (Tylenol 650mg/20.3ml Suspension) 650 mg GT Q4HR PRN PRN Reason: Pain Or Fever >100 Stop: 05/20/18 10:46 Albuterol/Ipratropium (Duoneb Neb) 3 ml HHN [id number] PRN PRN Reason: sob Stop: 05/20/18 10:46 Last Admin: 04/03/18 08:11 Dose: 3 ml Bisacodyl (Dulcolax 10 Mg Supp) 10 mg RC Q96H PRN PRN Reason: Constipation Stop: 05/20/18 10:46 Last Admin: 03/22/18 19:42 Dose: 10 mg Calcium/Vitamin D (Oscal W/Vitamin D) 2 tab GT BID [facility] Stop: 05/31/18 08:59 Last Admin: 04/02/18 17:05 Dose: Not Given Carbamazepine (Tegretol) 400 mg GT Q12HR@0900,2100 [facility] Stop: 05/20/18 10:59 Last Admin: 04/02/18 21:16 Dose: Not Given Docusate Sodium (Colace) 200 mg GT BID [facility] Stop: 05/20/18 10:59 Last Admin: 04/02/18 17:05 Dose: Not Given Hydralazine HCl (Apresoline 20 Mg/Ml) 20 mg IV Q6HR PRN PRN Reason: SBP>160 Stop: 05/23/18 13:11 Levetiracetam 500 mg/ Sodium (Chloride) 105 mls @ 400 mls/hr IV Q12H [facility] Stop: 05/21/18 22:59 Last Admin: 04/02/18 23:04 Dose: 100 mls/hr Ciprofloxacin (Cipro 400mg Premix Pb) 400 mg in 200 mls @ 200 mls/hr IV Q12HR [facility] Stop: 06/01/18 20:59 Last Admin: 04/02/18 21:22 Dose: 200 mls/hr Sodium Chloride 40 meq/Potassium Chloride 40 meq/Calcium Gluconate 1 gm/ Potassium Phosphate 20 mmole/Amino Acids/ Fat Emulsion Intravenous 1,246.6667 mls @ 75 mls/hr IV .[id number] [facility] Stop: 06/02/18 15:59 Insulin Human Lispro (Humalog Insulin Sliding Scale) 0 units SUBQ Q6H [facility]; Protocol Stop: 05/22/18 15:59 Last Admin: 04/03/18 05:09 Dose: Not Given Lactobacillus Rhamnosus (Culturelle 15b) 1 each PO DAILY [facility] Stop: 05/25/18 08:59 Last Admin: 04/02/18 10:34 Dose: Not Given Lactulose (Cephulac) 10 gm GT DAILY PRN PRN Reason: Constipation Last Admin: 03/22/18 13:47 Dose: 10 gm Magnesium Hydroxide (Milk Of Magnesia) 30 ml GT Q72H PRN PRN Reason: Constipation Stop: 05/20/18 10:48 Metoprolol Tartrate (Lopressor) 12.5 mg GT QPM [facility] Stop: 05/20/18 16:59 Last Admin: 04/02/18 17:05 Dose: Not Given Miscellaneous (Probiotic Screen) 1 ea PRN PRN PRN Reason: PROTOCOL Stop: 05/24/18 17:10 Miscellaneous (Ppn Per Pharmacy) 1 ea PRN PRN PRN Reason: PROTOCOL Stop: 06/01/18 15:22 Petrolatum (Zinc Oxide) 1 appl TP HS [facility] Stop: 05/21/18 20:59 Last Admin: 04/02/18 22:03 Dose: Not Given Sodium Phosphate (Fleet Enema) 135 ml RC Q96H PRN PRN Reason: IF DULCOLAX INEFFECTIVE Stop: 05/20/18 10:46 General: thin, NAD HEENT: NC/AT, PERRLA, EOMI Neck: No JVD, no No thyromegaly Lungs: CTAB Cardiovascular: RRR Abdomen: soft, non-tender, +GT - redness, +GT - discharge, other (GT SITE WITH LEAKAGE) Extremities: clear Neurological: no change, spastic - Procedures Procedures: Procedures Procedure Code Date ASPIR CURETT UTERUS NEC 69.59 06/12/11 CHANGE FEEDING DEVICE IN UP INTEST TRACT, HOME CARE RN APPROACH [id number] 01/27/16 CHANGE GASTROSTOMY TUBE 14919 05/21/15 DILATION AND CURETTAGE 41993 06/12/11 EGD BIOPSY SINGLE/MULTIPLE 68884 07/15/16 EXCISION OF STOMACH, ENDO, DIAGN [id number] 07/15/16 INSERTION OF FEEDING DEVICE INTO STOMACH, ENDO [id number] 07/15/16 [facility] PROC ABDM/PER/OMENT 84640 07/29/13 LAPAROSCOP APPENDECTOMY 47.01 07/29/13 LAPAROSCOP LYSIS-PERITONEAL ADHES 54.51 07/29/13 LAPAROSCOPY APPENDECTOMY 23394 07/29/13 REPLACE GASTROSTOMY TUBE 97.02 07/26/14 Internal Medicine Assmt/Plan - Assessment Assessment: 1. GTUBE MALFUNCTION WITH LEAKAGE 2. GT SITE CELLULITIS/DRAINAGE (GC FISTULA) 3. COMPLEX WOUND INFX-PSEUDOMONAS AERUGINOSA 3. HISTORY OF DYSPHAGIA-PEG PLACEMENT 4. HX OF CONSTIPATION 5. HYPONATREMIA--RESOLVED 6. HX OF SEIZURE DISORDER-STABLE 7. HX OF INTELLECTUAL DISABILITY 8. S/P PICC LINE PLACEMENT 9. ELECTROLYTE IMBALANCE-STABLE/MONITOR. - Plan Plan: CONT WITH CURRENT TX PLAN AND MGT CONT WITH TPN, CONT TO HOLD GT FEEDS FOR NOW CONT WITH IV ABXS (CIPRO), AND LOCAL WOUND CARE REPLETE LYTES/MONITOR. GI, ID FU/SURGICAL EVAL Nutritional Asmnt/Malnutr-PDOC - Dietary Evaluation Malnutrition Findings (Please click <Entered> for more info): Nutritional Asmnt/Malnutrition Start: 03/21/18 13: 29 Text: Status: Complete Freq: Protocol: Document 03/21/18 13:29 LCHENG (Rec: 03/21/18 13:45 LCHENG [email or web address]) Nutritional Asmnt/Malnutrition Patient General Information Nutritional Screening High Risk Consult Diagnosis displacement of Gtube, Gtube site cellulitis Pertinent Medical Hx/Surgical Hx HTN, PUD?GERD, seizures, hepatitis B and C, developmentally disabled, quadriplegic Subjective Information Consult reiceved for shayna score 11. Pt seen in bed, non verbal noted. Per nurse pt is tolerating current tube feeding. CALEB Rdz asked about TF rate since pt was receiving Jevity 1.5 at longterm and our hospital only carries Jevity 1.2. Current Diet Order/ Nutrition Support Jevity 1.2 at 40ml/hr x 20hr, providing 960kcal and 44g protein Pertinent Medications oscal w/vit D, colace, nacl 0. 9%, vancomycin Pertinent Labs 2/4 Cl 108, Cr 0.4 2/3 Cr 0.4, glucose 109, alb 3 .6 Nutritional Hx/Data Height 1.6 m Height (Calculated Centimeters) 160.0 Current Weight (lbs) 45.359 kg Weight (Calculated Kilograms) 45.4 Weight (Calculated Grams) 90525.2 Hope Body Weight 115 Body Mass Index (BMI) 17.6 Weight Status Underweight GI Symptoms GI Symptoms None Last BM not indicated Usual diet at home Jevity 1.5 at 40ml/hr x 20hr at Skin Integrity/Comment: cellulitis reddened to Gtube site shayna 11 Estimated Nutritional Goals Calories/Kcals/Kg 25-30 IBW 52kg Kcals Calculated [id number] Protein g/k-1.2 Protein Calculated 52-62 Fluid: ml 1300-1560ml (1ml/kcal) Nutritional Problem 1. Problem Problem inadequate intake from enteral feeding Etiology current TF regimen not meeting nutritional needs Signs/Symptoms: current TF providing 960kcal and 44g protein Malnutrition Related to Morbid Obesity Malnutrition related to morbid obesity No Intervention/Recommendation Comments 1. Recommend to increase TF rate to Jevity 1.2 at 55ml/hr x 20hr. It provides 1320kcal, 61g protein, 888ml free water, meeting 100% of nutritional needs. CALEB Rdz notified. 2. Monitor TF rate, tolerance, wt, skin integrity and labs 3. F/U as high risk in 2-3 days, 2/5-2/6 Expected Outcomes/Goals Expected Outcomes/Goals 1. Pt to meet at least 90% of nutritional needs via nutrition support with tolerance 2. Wt stability, skin to remain intact, labs to approach WNL.
[2018-04-03] MEDS: [UNRECOGNIZED DRUG - OTHER] IV SCH (15:41)
[2018-04-03] MEDS: POTASSIUM CHLORIDE IV SCH (15:41)
[2018-04-03] MEDS: CALCIUM GLUCONATE IV SCH (15:41)
[2018-04-03] MEDS: SODIUM CHLORIDE IV SCH (15:41)
[2018-04-03] MEDS: Docusate Sodium 100 mg/10 mL UD GT SCH ×2 (16:06→19:07)
[2018-04-03] MEDS: carBAMazepine 200 mg/10 mL UDC GT SCH ×2 (16:07→20:45)
[2018-04-03] MEDS: Lactobacillus Rhamnosus GG 15 Billion CFU CAP.SPRINK PO SCH (16:07)
[2018-04-03] MEDS: Calcium Carb/Vit D 500 mg/200 U Tab GT SCH ×2 (16:07→19:07)
[2018-04-03] MEDS: Ciprofloxacin 400mg Premix PB 400 MG/200 ML BAG IV SCH ×2 (16:17→20:53)
[2018-04-03] MEDS: Zinc Oxide Ointment 60 gm TP SCH (22:28)
[2018-04-04] MEDS: INSULIN LISPRO SLIDING SCALE 100 UNITS/ML UNIT SUBQ SCH ×4 (04:21→21:55)
[2018-04-04 05:16] LABS: BUN - UREA NITROGEN 19 mg/dL (7-25); CALCIUM SERUM 8.7 mg/dL (8.6-10.3); CARBON DIOXIDE 28.2 mEq/L (21.0-31.0); CHLORIDE 104 mEq/L (98-107); CREATININE - SERUM 0.4 mg/dL (0.6-1.2); GFR AFRICAN-AMERICAN > 60.0 ml/min (>90); GFR NON AFRICAN-AMERICAN > 60.0 ml/min; GLUCOSE 109 mg/dL (70-105); PHOSPHOROUS 3.2 mg/dL (2.5-5.0); POTASSIUM SERUM 4.2 mEq/L (3.5-5.1); SODIUM SERUM 140 mEq/L (136-145)
[2018-04-04] MEDS: Calcium Carb/Vit D 500 mg/200 U Tab GT SCH ×2 (10:06→17:17)
[2018-04-04] MEDS: Docusate Sodium 100 mg/10 mL UD GT SCH ×2 (10:06→17:16)
[2018-04-04] MEDS: Lactobacillus Rhamnosus GG 15 Billion CFU CAP.SPRINK PO SCH (10:07)
[2018-04-04] MEDS: carBAMazepine 200 mg/10 mL UDC GT SCH ×2 (10:07→21:16)
[2018-04-04] MEDS: Ciprofloxacin 400mg Premix PB 400 MG/200 ML BAG IV SCH ×2 (10:10→22:33)
--- NOTE | 2018-04-04 11:30 | Internal Medicine Prog Note ---
Internal Medicine Subjective - Subjective Service Date: 04/04/18 Patient is:: awake, non-verbal Per staff patient has:: no adverse event (TPN STARTED) Internal Medicine Objective - Results Result Diagrams: 04/01/18 06:15 04/04/18 04:45 Recent Labs: Laboratory Last Values WBC 9.4 Th/cmm (4.8-10.8) 04/01/18 06:15 RBC 3.89 Mil/cmm (3.80-5.10) 04/01/18 06:15 Hgb 12.8 gm/dL (12-16) 04/01/18 06:15 Hct 38.5 % (41.0-60) L 04/01/18 06:15 MCV 98.9 fl (81-100) 04/01/18 06:15 MCH 32.9 pg (27.0-31.0) H 04/01/18 06:15 MCHC Differential 33.2 pg (28.0-36.0) 04/01/18 06:15 RDW 10.9 % (11.5-20.0) L 04/01/18 06:15 Plt Count 223 Th/cmm (150-400) 04/01/18 06:15 MPV 10.2 fl 04/01/18 06:15 Neutrophils % 62.3 % (40.0-80.0) 04/01/18 06:15 Lymphocytes % 22.6 % (20.0-50.0) 04/01/18 06:15 Monocytes % 10.7 % (2.0-10.0) H 04/01/18 06:15 Eosinophils % 3.5 % (0.0-5.0) 04/01/18 06:15 Basophils % 0.9 % (0.0-2.0) 04/01/18 06:15 ESR 41 mm/hr (0-30) H 03/22/18 04:50 Sodium 140 mEq/L (136-145) 04/04/18 04:45 Potassium 4.2 mEq/L (3.5-5.1) 04/04/18 04:45 Chloride 104 mEq/L (98-107) 04/04/18 04:45 Carbon Dioxide 28.2 mEq/L (21.0-31.0) 04/04/18 04:45 Anion Gap 12.0 (7.0-16.0) 04/04/18 04:45 BUN 19 mg/dL (7-25) 04/04/18 04:45 Creatinine 0.4 mg/dL (0.6-1.2) L 04/04/18 04:45 Est GFR ( Amer) > 60.0 ml/min (>90) 04/04/18 04:45 Est GFR (Non-Af Amer) > 60.0 ml/min 04/04/18 04:45 BUN/Creatinine Ratio 47.5 04/04/18 04:45 Glucose 109 mg/dL (70-105) H 04/04/18 04:45 POC Glucose 147 MG/DL (70 - 105) H 04/04/18 11:01 Whole Bld Lactic Acid 1.20 mmol/L (0.60-1.99) 03/20/18 19:15 Calcium 8.7 mg/dL (8.6-10.3) 04/04/18 04:45 Phosphorus 3.2 mg/dL (2.5-5.0) 04/04/18 04:45 Magnesium 2.0 mg/dL (1.9-2.7) 04/04/18 04:45 Total Bilirubin 0.5 mg/dL (0.3-1.0) 03/30/18 05:25 Direct Bilirubin 0.47 mg/dL (0.0-0.2) H 03/29/18 04:35 AST 32 U/L (13-39) 03/30/18 05:25 ALT 46 U/L (7-52) 03/30/18 05:25 Alkaline Phosphatase 79 U/L (34-104) 03/30/18 05:25 C-Reactive Protein < 0.2 mg/dL (0.0-0.9) 03/22/18 04:50 Total Protein 6.3 gm/dL (6.0-8.3) 03/30/18 05:25 Albumin 3.1 gm/dL (3.7-5.3) L 03/30/18 05:25 Globulin 3.2 gm/dL 03/30/18 05:25 Albumin/Globulin Ratio 1.0 (1.0-1.8) 03/30/18 05:25 Prealbumin 14 mg/dL (10-36) 03/29/18 04:35 Triglycerides 72 mg/dL (<150) 03/29/18 04:35 Cholesterol 140 mg/dL (<200) 03/29/18 04:35 LDL Cholesterol Direct 87 mg/dL (75-193) 03/21/18 04:45 HDL Cholesterol 65 mg/dL (23-92) 03/21/18 04:45 TSH 1.11 uIU/ml (0.34-5.60) 03/21/18 04:45 Vancomycin Trough 14.4 ug/mL (5-10) H 03/24/18 20:28 - Physical Exam Vitals and I&O: Vital Signs Temp 98.2 F 04/04/18 04:00 Pulse 98 04/04/18 08:43 Resp 16 04/04/18 08:43 BP 115/72 04/04/18 04:00 Pulse Ox 93 04/04/18 08:43 Intake & Output 04/03/18 04/04/18 04/04/18 18:59 06:59 18:59 Intake Total 305 305 Balance 305 305 Weight (lbs) 45.269 kg Intake: Intake, IV Amount 305 305 Ciprofloxacin 400mg 200 200 Premix PB 400 mg In 200 ml @ 200 mls/hr IV Q12HR [facility] Rx#:[id number] Levetiracetam 500 mg In 105 105 Sodium Chloride 0.9% 100 ml @ 400 mls/hr IV Q12H [facility] Rx#:[id number] Other: # Voids 2 # Bowel Movements 0 Weight Source Bedscale Active Medications: Current Medications Acetaminophen (Tylenol 650mg/20.3ml Suspension) 650 mg GT Q4HR PRN PRN Reason: Pain Or Fever >100 Stop: 05/20/18 10:46 Albuterol/Ipratropium (Duoneb Neb) 3 ml HHN [id number] PRN PRN Reason: sob Stop: 05/20/18 10:46 Last Admin: 04/03/18 08:11 Dose: 3 ml Bisacodyl (Dulcolax 10 Mg Supp) 10 mg RC Q96H PRN PRN Reason: Constipation Stop: 05/20/18 10:46 Last Admin: 03/22/18 19:42 Dose: 10 mg Calcium/Vitamin D (Oscal W/Vitamin D) 2 tab GT BID [facility] Stop: 05/31/18 08:59 Last Admin: 04/04/18 10:06 Dose: Not Given Carbamazepine (Tegretol) 400 mg GT Q12HR@0900,2100 [facility] Stop: 05/20/18 10:59 Last Admin: 04/04/18 10:07 Dose: Not Given Docusate Sodium (Colace) 200 mg GT BID [facility] Stop: 05/20/18 10:59 Last Admin: 04/04/18 10:06 Dose: Not Given Hydralazine HCl (Apresoline 20 Mg/Ml) 20 mg IV Q6HR PRN PRN Reason: SBP>160 Stop: 05/23/18 13:11 Levetiracetam 500 mg/ Sodium (Chloride) 105 mls @ 400 mls/hr IV Q12H [facility] Stop: 05/21/18 22:59 Last Admin: 04/04/18 11:01 Dose: 100 mls/hr Ciprofloxacin (Cipro 400mg Premix Pb) 400 mg in 200 mls @ 200 mls/hr IV Q12HR [facility] Stop: 06/01/18 20:59 Last Admin: 04/04/18 10:10 Dose: 200 mls/hr Sodium Chloride 40 meq/Potassium Chloride 40 meq/Calcium Gluconate 1 gm/ Potassium Phosphate 20 mmole/Amino Acids/ Fat Emulsion Intravenous 1,246.6667 mls @ 75 mls/hr IV .[id number] [facility] Stop: 06/02/18 15:59 Last Admin: 04/03/18 15:41 Dose: 75 mls/hr Insulin Human Lispro (Humalog Insulin Sliding Scale) 0 units SUBQ Q6H [facility]; Protocol Stop: 05/22/18 15:59 Last Admin: 04/04/18 11:03 Dose: Not Given Lactobacillus Rhamnosus (Culturelle 15b) 1 each PO DAILY [facility] Stop: 05/25/18 08:59 Last Admin: 04/04/18 10:07 Dose: Not Given Lactulose (Cephulac) 10 gm GT DAILY PRN PRN Reason: Constipation Last Admin: 03/22/18 13:47 Dose: 10 gm Magnesium Hydroxide (Milk Of Magnesia) 30 ml GT Q72H PRN PRN Reason: Constipation Stop: 05/20/18 10:48 Metoprolol Tartrate (Lopressor) 12.5 mg GT QPM [facility] Stop: 05/20/18 16:59 Last Admin: 04/03/18 19:07 Dose: Not Given Miscellaneous (Probiotic Screen) 1 ea PRN PRN PRN Reason: PROTOCOL Stop: 05/24/18 17:10 Miscellaneous (Ppn Per Pharmacy) 1 ea PRN PRN PRN Reason: PROTOCOL Stop: 06/01/18 15:22 Petrolatum (Zinc Oxide) 1 appl TP HS [facility] Stop: 05/21/18 20:59 Last Admin: 04/03/18 22:28 Dose: 1 appl Sodium Phosphate (Fleet Enema) 135 ml RC Q96H PRN PRN Reason: IF DULCOLAX INEFFECTIVE Stop: 05/20/18 10:46 General: thin, NAD HEENT: NC/AT, PERRLA, EOMI Neck: No JVD, no No thyromegaly Lungs: CTAB Cardiovascular: RRR Abdomen: soft, non-tender, +GT - redness, +GT - discharge, other (GT SITE WITH LEAKAGE) Extremities: clear Neurological: no change, spastic - Procedures Procedures: Procedures Procedure Code Date ASPIR CURETT UTERUS NEC 69.59 06/12/11 CHANGE FEEDING DEVICE IN UP INTEST TRACT, RESTAURANT ASSISTANT APPROACH [id number] 01/27/16 CHANGE GASTROSTOMY TUBE 80829 05/21/15 DILATION AND CURETTAGE 81267 06/12/11 EGD BIOPSY SINGLE/MULTIPLE 59876 07/15/16 EXCISION OF STOMACH, ENDO, DIAGN [id number] 07/15/16 INSERTION OF FEEDING DEVICE INTO STOMACH, ENDO [id number] 07/15/16 LAPARO PROC ABDM/PER/OMENT 19808 07/29/13 LAPAROSCOP APPENDECTOMY 47.01 07/29/13 LAPAROSCOP LYSIS-PERITONEAL ADHES 54.51 07/29/13 LAPAROSCOPY APPENDECTOMY 96743 07/29/13 REPLACE GASTROSTOMY TUBE 97.02 07/26/14 Internal Medicine Assmt/Plan - Assessment Assessment: 1. GTUBE MALFUNCTION WITH LEAKAGE 2. GT SITE CELLULITIS/DRAINAGE (GC FISTULA) 3. COMPLEX WOUND INFX-PSEUDOMONAS AERUGINOSA 3. HISTORY OF DYSPHAGIA-PEG PLACEMENT 4. HX OF CONSTIPATION 5. HYPONATREMIA--RESOLVED 6. HX OF SEIZURE DISORDER-STABLE 7. HX OF INTELLECTUAL DISABILITY 8. S/P PICC LINE PLACEMENT 9. ELECTROLYTE IMBALANCE-STABLE/MONITOR. - Plan Plan: CONT WITH CURRENT TX PLAN AND MGT CONT WITH TPN, CONT TO HOLD GT FEEDS FOR NOW CONT WITH IV ABXS (CIPRO), AND LOCAL WOUND CARE REPLETE LYTES/MONITOR. GI, ID FU/SURGICAL EVAL Nutritional Asmnt/Malnutr-PDOC - Dietary Evaluation Malnutrition Findings (Please click <Entered> for more info): Nutritional Asmnt/Malnutrition Start: 03/21/18 13: 29 Text: Status: Complete Freq: Protocol: Document 03/21/18 13:29 LCHENG (Rec: 03/21/18 13:45 LCHENG [email or web address]) Nutritional Asmnt/Malnutrition Patient General Information Nutritional Screening High Risk Consult Diagnosis displacement of Gtube, Gtube site cellulitis Pertinent Medical Hx/Surgical Hx HTN, PUD?GERD, seizures, hepatitis B and C, developmentally disabled, quadriplegic Subjective Information Consult reiceved for shayna score 11. Pt seen in bed, non verbal noted. Per nurse pt is tolerating current tube feeding. CALEB Rdz asked about TF rate since pt was receiving Jevity 1.5 at [facility] and our hospital only carries Jevity 1.2. Current Diet Order/ Nutrition Support Jevity 1.2 at 40ml/hr x 20hr, providing 960kcal and 44g protein Pertinent Medications oscal w/vit D, colace, nacl 0. 9%, vancomycin Pertinent Labs 2/4 Cl 108, Cr 0.4 2/3 Cr 0.4, glucose 109, alb 3 .6 Nutritional Hx/Data Height 1.6 m Height (Calculated Centimeters) 160.0 Current Weight (lbs) 45.359 kg Weight (Calculated Kilograms) 45.4 Weight (Calculated Grams) 63282.2 [place] Body Weight 115 Body Mass Index (BMI) 17.6 Weight Status Underweight GI Symptoms GI Symptoms None Last BM not indicated Usual diet at home Jevity 1.5 at 40ml/hr x 20hr at [facility] Skin Integrity/Comment: cellulitis reddened to Gtube site shayna 11 Estimated Nutritional Goals Calories/Kcals/Kg 25-30 IBW 52kg Kcals Calculated 3709-8050 Protein g/k-1.2 Protein Calculated 52-62 Fluid: ml 1300-1560ml (1ml/kcal) Nutritional Problem 1. Problem Problem inadequate intake from enteral feeding Etiology current TF regimen not meeting nutritional needs Signs/Symptoms: current TF providing 960kcal and 44g protein Malnutrition Related to Morbid Obesity Malnutrition related to morbid obesity No Intervention/Recommendation Comments 1. Recommend to increase TF rate to Jevity 1.2 at 55ml/hr x 20hr. It provides 1320kcal, 61g protein, 888ml free water, meeting 100% of nutritional needs. RN Kajal notified. 2. Monitor TF rate, tolerance, wt, skin integrity and labs 3. F/U as high risk in 2-3 days, 2/5-2/6 Expected Outcomes/Goals Expected Outcomes/Goals 1. Pt to meet at least 90% of nutritional needs via nutrition support with tolerance 2. Wt stability, skin to remain intact, labs to approach WNL.
--- NOTE | 2018-04-04 14:12 | GI Progress Note ---
Subjective - Review of Systems Service Date: 04/04/18 Events since last encounter: No new events, still with open fistula ; on TPN; discussed case with Dr Molina Objective - Results Result Diagrams: 04/01/18 06:15 04/04/18 04:45 Recent Labs: Laboratory Last Values WBC 9.4 Th/cmm (4.8-10.8) 04/01/18 06:15 RBC 3.89 Mil/cmm (3.80-5.10) 04/01/18 06:15 Hgb 12.8 gm/dL (12-16) 04/01/18 06:15 Hct 38.5 % (41.0-60) L 04/01/18 06:15 MCV 98.9 fl (81-100) 04/01/18 06:15 MCH 32.9 pg (27.0-31.0) H 04/01/18 06:15 MCHC Differential 33.2 pg (28.0-36.0) 04/01/18 06:15 RDW 10.9 % (11.5-20.0) L 04/01/18 06:15 Plt Count 223 Th/cmm (150-400) 04/01/18 06:15 MPV 10.2 fl 04/01/18 06:15 Neutrophils % 62.3 % (40.0-80.0) 04/01/18 06:15 Lymphocytes % 22.6 % (20.0-50.0) 04/01/18 06:15 Monocytes % 10.7 % (2.0-10.0) H 04/01/18 06:15 Eosinophils % 3.5 % (0.0-5.0) 04/01/18 06:15 Basophils % 0.9 % (0.0-2.0) 04/01/18 06:15 ESR 41 mm/hr (0-30) H 03/22/18 04:50 Sodium 140 mEq/L (136-145) 04/04/18 04:45 Potassium 4.2 mEq/L (3.5-5.1) 04/04/18 04:45 Chloride 104 mEq/L (98-107) 04/04/18 04:45 Carbon Dioxide 28.2 mEq/L (21.0-31.0) 04/04/18 04:45 Anion Gap 12.0 (7.0-16.0) 04/04/18 04:45 BUN 19 mg/dL (7-25) 04/04/18 04:45 Creatinine 0.4 mg/dL (0.6-1.2) L 04/04/18 04:45 Est GFR ( Amer) > 60.0 ml/min (>90) 04/04/18 04:45 Est GFR (Non-Af Amer) > 60.0 ml/min 04/04/18 04:45 BUN/Creatinine Ratio 47.5 04/04/18 04:45 Glucose 109 mg/dL (70-105) H 04/04/18 04:45 POC Glucose 147 MG/DL (70 - 105) H 04/04/18 11:01 Whole Bld Lactic Acid 1.20 mmol/L (0.60-1.99) 03/20/18 19:15 Calcium 8.7 mg/dL (8.6-10.3) 04/04/18 04:45 Phosphorus 3.2 mg/dL (2.5-5.0) 04/04/18 04:45 Magnesium 2.0 mg/dL (1.9-2.7) 04/04/18 04:45 Total Bilirubin 0.5 mg/dL (0.3-1.0) 03/30/18 05:25 Direct Bilirubin 0.47 mg/dL (0.0-0.2) H 03/29/18 04:35 AST 32 U/L (13-39) 03/30/18 05:25 ALT 46 U/L (7-52) 03/30/18 05:25 Alkaline Phosphatase 79 U/L (34-104) 03/30/18 05:25 C-Reactive Protein < 0.2 mg/dL (0.0-0.9) 03/22/18 04:50 Total Protein 6.3 gm/dL (6.0-8.3) 03/30/18 05:25 Albumin 3.1 gm/dL (3.7-5.3) L 03/30/18 05:25 Globulin 3.2 gm/dL 03/30/18 05:25 Albumin/Globulin Ratio 1.0 (1.0-1.8) 03/30/18 05:25 Prealbumin 14 mg/dL (10-36) 03/29/18 04:35 Triglycerides 72 mg/dL (<150) 03/29/18 04:35 Cholesterol 140 mg/dL (<200) 03/29/18 04:35 LDL Cholesterol Direct 87 mg/dL (75-193) 03/21/18 04:45 HDL Cholesterol 65 mg/dL (23-92) 03/21/18 04:45 TSH 1.11 uIU/ml (0.34-5.60) 03/21/18 04:45 Vancomycin Trough 14.4 ug/mL (5-10) H 03/24/18 20:28 - Physical Exam Vitals and I&O: Vital Signs Temp 98.2 F 04/04/18 04:00 Pulse 98 04/04/18 08:43 Resp 16 04/04/18 08:43 BP 115/72 04/04/18 04:00 Pulse Ox 93 04/04/18 08:43 Intake & Output 04/03/18 04/04/18 04/04/18 18:59 06:59 18:59 Intake Total 305 305 Balance 305 305 Weight (lbs) 45.269 kg Intake: Intake, IV Amount 305 305 Ciprofloxacin 400mg 200 200 Premix PB 400 mg In 200 ml @ 200 mls/hr IV Q12HR [facility]PLACED BY [facility] Rx#:[id number] Levetiracetam 500 mg In 105 105 Sodium Chloride 0.9% 100 ml @ 400 mls/hr IV Q12H [facility]PLACED BY [facility] Rx#:[id number] Other: # Voids 2 # Bowel Movements 0 Weight Source Bedscale Active Medications: Current Medications Acetaminophen (Tylenol 650mg/20.3ml Suspension) 650 mg GT Q4HR PRN PRN Reason: Pain Or Fever >100 Stop: 05/20/18 10:46 Albuterol/Ipratropium (Duoneb Neb) 3 ml HHN [id number] PRN PRN Reason: sob Stop: 05/20/18 10:46 Last Admin: 04/03/18 08:11 Dose: 3 ml Bisacodyl (Dulcolax 10 Mg Supp) 10 mg RC Q96H PRN PRN Reason: Constipation Stop: 05/20/18 10:46 Last Admin: 03/22/18 19:42 Dose: 10 mg Calcium/Vitamin D (Oscal W/Vitamin D) 2 tab GT BID [facility] Stop: 05/31/18 08:59 Last Admin: 04/04/18 10:06 Dose: Not Given Carbamazepine (Tegretol) 400 mg GT Q12HR@0900,2100 [facility] Stop: 05/20/18 10:59 Last Admin: 04/04/18 10:07 Dose: Not Given Docusate Sodium (Colace) 200 mg GT BID [facility] Stop: 05/20/18 10:59 Last Admin: 04/04/18 10:06 Dose: Not Given Hydralazine HCl (Apresoline 20 Mg/Ml) 20 mg IV Q6HR PRN PRN Reason: SBP>160 Stop: 05/23/18 13:11 Levetiracetam 500 mg/ Sodium (Chloride) 105 mls @ 400 mls/hr IV Q12H [facility]PL[facility] Stop: 05/21/18 22:59 Last Admin: 04/04/18 11:01 Dose: 100 mls/hr Ciprofloxacin (Cipro 400mg Premix Pb) 400 mg in 200 mls @ 200 mls/hr IV Q12HR [facility] Stop: 06/01/18 20:59 Last Admin: 04/04/18 10:10 Dose: 200 mls/hr Sodium Chloride 40 meq/Potassium Chloride 40 meq/Calcium Gluconate 1 gm/ Potassium Phosphate 20 mmole/Amino Acids/ Fat Emulsion Intravenous 1,246.6667 mls @ 75 mls/hr IV .[id number] REPLACED BY [facility] Stop: 06/02/18 15:59 Last Admin: 04/03/18 15:41 Dose: 75 mls/hr Insulin Human Lispro (Humalog Insulin Sliding Scale) 0 units SUBQ Q6H REPL[facility]ED BY [facility]; Protocol Stop: 05/22/18 15:59 Last Admin: 04/04/18 11:03 Dose: Not Given Lactobacillus Rhamnosus (Culturelle 15b) 1 each PO DAILY [facility] Stop: 05/25/18 08:59 Last Admin: 04/04/18 10:07 Dose: Not Given Lactulose (Cephulac) 10 gm GT DAILY PRN PRN Reason: Constipation Last Admin: 03/22/18 13:47 Dose: 10 gm Magnesium Hydroxide (Milk Of Magnesia) 30 ml GT Q72H PRN PRN Reason: Constipation Stop: 05/20/18 10:48 Metoprolol Tartrate (Lopressor) 12.5 mg GT QPM [facility] Stop: 05/20/18 16:59 Last Admin: 04/03/18 19:07 Dose: Not Given Miscellaneous (Probiotic Screen) 1 ea PRN PRN PRN Reason: PROTOCOL Stop: 05/24/18 17:10 Miscellaneous (Ppn Per Pharmacy) 1 ea PRN PRN PRN Reason: PROTOCOL Stop: 06/01/18 15:22 Petrolatum (Zinc Oxide) 1 appl TP HS [facility] Stop: 05/21/18 20:59 Last Admin: 04/03/18 22:28 Dose: 1 appl Sodium Phosphate (Fleet Enema) 135 ml RC Q96H PRN PRN Reason: IF DULCOLAX INEFFECTIVE Stop: 05/20/18 10:46 General: Alert HEENT: Atraumatic Neck: Supple Cardiovascular: Regular rate Lungs: Clear to auscultation Abdomen: Bowel sounds, Soft, Other (GC fistula with erythema, bandaged. Some purulent drainage), no Tender, no Distended, no Rebound, no Mass, no Guarding Extremities: no Edema Neurological: Sensation intact Skin: Rash Psych/Mental Status: Mood NL - Procedures Procedures: Procedures Procedure Code Date ASPIR CURETT UTERUS NEC 69.59 06/12/11 CHANGE FEEDING DEVICE IN UP INTEST TRACT, LIBRARY SCIENCE PROFESSOR APPROACH [id number] 01/27/16 CHANGE GASTROSTOMY TUBE 14934 05/21/15 DILATION AND CURETTAGE 29847 06/12/11 EGD BIOPSY SINGLE/MULTIPLE 81568 07/15/16 EXCISION OF STOMACH, ENDO, DIAGN [id number] 07/15/16 INSERTION OF FEEDING DEVICE INTO STOMACH, ENDO [id number] 07/15/16 LAPARO PROC ABDM/PER/OMENT 08568 07/29/13 LAPAROSCOP APPENDECTOMY 47.01 07/29/13 LAPAROSCOP LYSIS-PERITONEAL ADHES 54.51 07/29/13 LAPAROSCOPY APPENDECTOMY 90821 07/29/13 REPLACE GASTROSTOMY TUBE 97.02 07/26/14 Assessment/Plan - Assessment Assessment: Assessment: # G tube site cellulitis # Dysphagia # Developmental delay As of 03/25, the site looked worse thus the G tube was pulled. Will need to wait for the area to heal prior to inserting a new one On 03/30, there is still erythema and some leakage from the area. Unclear if proper wound care is being applied to this area. On 04/01, the site looks more inflamed. Does not appear to be leakage from NG feeding, but infection on the skin is not improving. on 04/02 - NG tube was pulled bc of tip extruding out of gc fistula site Plan: - appreciate ID consult to help with unresolving cellulitis. - site has not healed or closed on its own; Discussed case with Dr Molina: most likely Plan will be likely fistula closure and surgical PEG -Discussed other option of Over the scope clip closure, but likely this will increase hospital LOS and take 1-2 weeks before safe to insert new PEG tube but certainly an option, but not the best option in this case -wound care
--- NOTE | 2018-04-04 15:10 | Infectious Disease Prog Note ---
Infectious Disease Subjective - Review of Systems Service Date: 04/04/18 Subjective: There is no new changes. The erythema and excoriation at epigastric area is improving. No fever. Infectious Disease Objective - Results Result Diagrams: 04/01/18 06:15 04/04/18 04:45 Recent Labs: Laboratory Last Values WBC 9.4 Th/cmm (4.8-10.8) 04/01/18 06:15 RBC 3.89 Mil/cmm (3.80-5.10) 04/01/18 06:15 Hgb 12.8 gm/dL (12-16) 04/01/18 06:15 Hct 38.5 % (41.0-60) L 04/01/18 06:15 MCV 98.9 fl (81-100) 04/01/18 06:15 MCH 32.9 pg (27.0-31.0) H 04/01/18 06:15 MCHC Differential 33.2 pg (28.0-36.0) 04/01/18 06:15 RDW 10.9 % (11.5-20.0) L 04/01/18 06:15 Plt Count 223 Th/cmm (150-400) 04/01/18 06:15 MPV 10.2 fl 04/01/18 06:15 Neutrophils % 62.3 % (40.0-80.0) 04/01/18 06:15 Lymphocytes % 22.6 % (20.0-50.0) 04/01/18 06:15 Monocytes % 10.7 % (2.0-10.0) H 04/01/18 06:15 Eosinophils % 3.5 % (0.0-5.0) 04/01/18 06:15 Basophils % 0.9 % (0.0-2.0) 04/01/18 06:15 ESR 41 mm/hr (0-30) H 03/22/18 04:50 Sodium 140 mEq/L (136-145) 04/04/18 04:45 Potassium 4.2 mEq/L (3.5-5.1) 04/04/18 04:45 Chloride 104 mEq/L (98-107) 04/04/18 04:45 Carbon Dioxide 28.2 mEq/L (21.0-31.0) 04/04/18 04:45 Anion Gap 12.0 (7.0-16.0) 04/04/18 04:45 BUN 19 mg/dL (7-25) 04/04/18 04:45 Creatinine 0.4 mg/dL (0.6-1.2) L 04/04/18 04:45 Est GFR ( Amer) > 60.0 ml/min (>90) 04/04/18 04:45 Est GFR (Non-Af Amer) > 60.0 ml/min 04/04/18 04:45 BUN/Creatinine Ratio 47.5 04/04/18 04:45 Glucose 109 mg/dL (70-105) H 04/04/18 04:45 POC Glucose 147 MG/DL (70 - 105) H 04/04/18 11:01 Whole Bld Lactic Acid 1.20 mmol/L (0.60-1.99) 03/20/18 19:15 Calcium 8.7 mg/dL (8.6-10.3) 04/04/18 04:45 Phosphorus 3.2 mg/dL (2.5-5.0) 04/04/18 04:45 Magnesium 2.0 mg/dL (1.9-2.7) 04/04/18 04:45 Total Bilirubin 0.5 mg/dL (0.3-1.0) 03/30/18 05:25 Direct Bilirubin 0.47 mg/dL (0.0-0.2) H 03/29/18 04:35 AST 32 U/L (13-39) 03/30/18 05:25 ALT 46 U/L (7-52) 03/30/18 05:25 Alkaline Phosphatase 79 U/L (34-104) 03/30/18 05:25 C-Reactive Protein < 0.2 mg/dL (0.0-0.9) 03/22/18 04:50 Total Protein 6.3 gm/dL (6.0-8.3) 03/30/18 05:25 Albumin 3.1 gm/dL (3.7-5.3) L 03/30/18 05:25 Globulin 3.2 gm/dL 03/30/18 05:25 Albumin/Globulin Ratio 1.0 (1.0-1.8) 03/30/18 05:25 Prealbumin 14 mg/dL (10-36) 03/29/18 04:35 Triglycerides 72 mg/dL (<150) 03/29/18 04:35 Cholesterol 140 mg/dL (<200) 03/29/18 04:35 LDL Cholesterol Direct 87 mg/dL (75-193) 03/21/18 04:45 HDL Cholesterol 65 mg/dL (23-92) 03/21/18 04:45 TSH 1.11 uIU/ml (0.34-5.60) 03/21/18 04:45 Vancomycin Trough 14.4 ug/mL (5-10) H 03/24/18 20:28 - Physical Exam Vitals and I&O: Vital Signs Temp 98.2 F 04/04/18 04:00 Pulse 98 04/04/18 08:43 Resp 16 04/04/18 08:43 BP 115/72 04/04/18 04:00 Pulse Ox 93 04/04/18 08:43 Intake & Output 04/03/18 04/04/18 04/04/18 18:59 06:59 18:59 Intake Total 305 305 Balance 305 305 Weight (lbs) 45.269 kg Intake: Intake, IV Amount 305 305 Ciprofloxacin 400mg 200 200 Premix PB 400 mg In 200 ml @ 200 mls/hr IV Q12HR [facility] Rx#:[id number] Levetiracetam 500 mg In 105 105 Sodium Chloride 0.9% 100 ml @ 400 mls/hr IV Q12H [facility] Rx#:[id number] Other: # Voids 2 # Bowel Movements 0 Weight Source Bedscale Active Medications: Current Medications Acetaminophen (Tylenol 650mg/20.3ml Suspension) 650 mg GT Q4HR PRN PRN Reason: Pain Or Fever >100 Stop: 05/20/18 10:46 Albuterol/Ipratropium (Duoneb Neb) 3 ml HHN [id number] PRN PRN Reason: sob Stop: 05/20/18 10:46 Last Admin: 04/03/18 08:11 Dose: 3 ml Bisacodyl (Dulcolax 10 Mg Supp) 10 mg RC Q96H PRN PRN Reason: Constipation Stop: 05/20/18 10:46 Last Admin: 03/22/18 19:42 Dose: 10 mg Calcium/Vitamin D (Oscal W/Vitamin D) 2 tab GT BID [facility] Stop: 05/31/18 08:59 Last Admin: 04/04/18 10:06 Dose: Not Given Carbamazepine (Tegretol) 400 mg GT Q12HR@0900,2100 [facility] Stop: 05/20/18 10:59 Last Admin: 04/04/18 10:07 Dose: Not Given Docusate Sodium (Colace) 200 mg GT BID [facility] Stop: 05/20/18 10:59 Last Admin: 04/04/18 10:06 Dose: Not Given Hydralazine HCl (Apresoline 20 Mg/Ml) 20 mg IV Q6HR PRN PRN Reason: SBP>160 Stop: 05/23/18 13:11 Levetiracetam 500 mg/ Sodium (Chloride) 105 mls @ 400 mls/hr IV Q12H [facility] Stop: 05/21/18 22:59 Last Admin: 04/04/18 11:01 Dose: 100 mls/hr Ciprofloxacin (Cipro 400mg Premix Pb) 400 mg in 200 mls @ 200 mls/hr IV Q12HR [facility] Stop: 06/01/18 20:59 Last Admin: 04/04/18 10:10 Dose: 200 mls/hr Sodium Chloride 40 meq/Potassium Chloride 40 meq/Calcium Gluconate 1 gm/ Potassium Phosphate 20 mmole/Amino Acids/ Fat Emulsion Intravenous 1,246.6667 mls @ 75 mls/hr IV .[id number] [facility] Stop: 06/02/18 15:59 Last Admin: 04/03/18 15:41 Dose: 75 mls/hr Insulin Human Lispro (Humalog Insulin Sliding Scale) 0 units SUBQ Q6H [facility]; Protocol Stop: 05/22/18 15:59 Last Admin: 04/04/18 11:03 Dose: Not Given Lactobacillus Rhamnosus (Culturelle 15b) 1 each PO DAILY [facility] Stop: 05/25/18 08:59 Last Admin: 04/04/18 10:07 Dose: Not Given Lactulose (Cephulac) 10 gm GT DAILY PRN PRN Reason: Constipation Last Admin: 03/22/18 13:47 Dose: 10 gm Magnesium Hydroxide (Milk Of Magnesia) 30 ml GT Q72H PRN PRN Reason: Constipation Stop: 05/20/18 10:48 Metoprolol Tartrate (Lopressor) 12.5 mg GT QPM [facility] Stop: 05/20/18 16:59 Last Admin: 04/03/18 19:07 Dose: Not Given Miscellaneous (Probiotic Screen) 1 [facility] PRN PRN PRN Reason: PROTOCOL Stop: 05/24/18 17:10 Miscellaneous (Ppn Per Pharmacy) 1 [facility] PRN PRN PRN Reason: PROTOCOL Stop: 06/01/18 15:22 Petrolatum (Zinc Oxide) 1 appl TP HS [facility] Stop: 05/21/18 20:59 Last Admin: 04/03/18 22:28 Dose: 1 appl Sodium Phosphate (Fleet Enema) 135 ml RC Q96H PRN PRN Reason: IF DULCOLAX INEFFECTIVE Stop: 05/20/18 10:46 General: no acute distress, cachectic HEENT: atraumatic, normocephalic, PERRLA, EOMI Neck: supple, no thyromegaly Cardiovascular: S1S2, regular Lungs: clear to auscultation bilaterally, clear to percussion Abdomen: soft, other (the erythema and excoriation at epigastric area is improving. No active bleeding anymore.), no tender, no distended, no hepatomegaly Extremities: no cyanosis, no clubbing, no edema Neurological: awake, alert - Procedures Procedures: Procedures Procedure Code Date ASPIR CURETT UTERUS NEC 69.59 06/12/11 CHANGE FEEDING DEVICE IN UP INTEST TRACT, RADIOLOGY TRANSPORTER APPROACH [id number] 01/27/16 CHANGE GASTROSTOMY TUBE 74107 05/21/15 DILATION AND CURETTAGE 28447 06/12/11 EGD BIOPSY SINGLE/MULTIPLE 80504 07/15/16 EXCISION OF STOMACH, ENDO, DIAGN [id number] 07/15/16 INSERTION OF FEEDING DEVICE INTO STOMACH, ENDO [id number] 07/15/16 LAPARO PROC ABDM/PER/OMENT 10308 07/29/13 LAPAROSCOP APPENDECTOMY 47.01 07/29/13 LAPAROSCOP LYSIS-PERITONEAL ADHES 54.51 07/29/13 LAPAROSCOPY APPENDECTOMY 40196 07/29/13 REPLACE GASTROSTOMY TUBE 97.02 07/26/14 Infectious Disease Assmt/Plan - Assessment Assessment: 1. Abdominal wall cellulitis, excoriation. 2. Malposition of NGT. 3. Hepatitis C. 4. Hepatitis B. 5. G-tube malfunction. Currently receiving, TPN did 6. Seizure disorder. - Plan Plan: Continue symptomatic treatment. Wound care is the mainstay of the treatment. Continue ciprofloxacin for few more days. Nutritional Asmnt/Malnutr-PDOC - Dietary Evaluation Malnutrition Findings (Please click <Entered> for more info): Nutritional Asmnt/Malnutrition Start: 03/21/18 13: 29 Text: Status: Complete Freq: Protocol: Document 03/21/18 13:29 LCHEBERG (Rec: 03/21/18 13:45 LCHENG CHARO-FN) Nutritional Asmnt/Malnutrition Patient General Information Nutritional Screening High Risk Consult Diagnosis displacement of Gtube, Gtube site cellulitis Pertinent Medical Hx/Surgical Hx HTN, PUD?GERD, seizures, hepatitis B and C, developmentally disabled, quadriplegic Subjective Information Consult reiceved for shayna score 11. Pt seen in bed, non verbal noted. Per nurse pt is tolerating current tube feeding. CALEB Rdz asked about TF rate since pt was receiving Jevity 1.5 at care home and our hospital only carries Jevity 1.2. Current Diet Order/ Nutrition Support Jevity 1.2 at 40ml/hr x 20hr, providing 960kcal and 44g protein Pertinent Medications oscal w/vit D, colace, nacl 0. 9%, vancomycin Pertinent Labs 2/4 Cl 108, Cr 0.4 2/3 Cr 0.4, glucose 109, alb 3 .6 Nutritional Hx/Data Height 1.6 m Height (Calculated Centimeters) 160.0 Current Weight (lbs) 45.359 kg Weight (Calculated Kilograms) 45.4 Weight (Calculated Grams) 09365.2 [place] Body Weight 115 Body Mass Index (BMI) 17.6 Weight Status Underweight GI Symptoms GI Symptoms None Last BM not indicated Usual diet at home Jevity 1.5 at 40ml/hr x 20hr at [facility] Skin Integrity/Comment: cellulitis reddened to Gtube site shayna 11 Estimated Nutritional Goals Calories/Kcals/Kg 25-30 IBW 52kg Kcals Calculated 3732-8554 Protein g/k-1.2 Protein Calculated 52-62 Fluid: ml 1300-1560ml (1ml/kcal) Nutritional Problem 1. Problem Problem inadequate intake from enteral feeding Etiology current TF regimen not meeting nutritional needs Signs/Symptoms: current TF providing 960kcal and 44g protein Malnutrition Related to Morbid Obesity Malnutrition related to morbid obesity No Intervention/Recommendation Comments 1. Recommend to increase TF rate to Jevity 1.2 at 55ml/hr x 20hr. It provides 1320kcal, 61g protein, 888ml free water, meeting 100% of nutritional needs. CALEB Rdz notified. 2. Monitor TF rate, tolerance, wt, skin integrity and labs 3. F/U as high risk in 2-3 days, 2/-2/ Expected Outcomes/Goals Expected Outcomes/Goals 1. Pt to meet at least 90% of nutritional needs via nutrition support with tolerance 2. Wt stability, skin to remain intact, labs to approach WNL.
[2018-04-04] MEDS: SODIUM CHLORIDE IV SCH (17:18)
[2018-04-04] MEDS: CALCIUM GLUCONATE IV SCH (17:18)
[2018-04-04] MEDS: POTASSIUM CHLORIDE IV SCH (17:18)
[2018-04-04] MEDS: [UNRECOGNIZED DRUG - OTHER] IV SCH (17:18)
--- NOTE | 2018-04-04 17:36 | Consultation ---
DATE OF CONSULTATION: 04/04/2018 TIME OF CONSULTATION: 12:05 p.m. HISTORY OF PRESENT ILLNESS: The patient is a 62-year-old female brought in from [facility] with a G-tube discharge and cellulitis. The patient has a significant gastrocutaneous fistula. CT of the abdomen and pelvis showed gallstones, multiple obstructing bilateral calculi, fecal impaction, gastrostomy tube in the stomach with extravasated contrast material on the skin surface. Oral contrast progression in normal fashion to the small bowel loops with reflux into the colon. History of GI bleed. The patient is mentally retarded, intellectual disability, dementia and quadriplegia. Surgical consultation requested for gastrocutaneous fistula and for management of abdominal wall cellulitis and to reestablish a feeding access. The patient has been seen by the GI doctors. She is afebrile. PAST SURGICAL HISTORY: G-tube placement and replacement in the past. PAST SOCIAL HISTORY: No significant history of alcohol, tobacco or recreational drug use. ALLERGIES: No known drug allergies. MEDICATIONS: The patient is on aspirin, Nexium. PHYSICAL EXAMINATION: GENERAL: A 45 kg, BMI of 17. The patient is afebrile. VITAL SIGNS: Otherwise stable. She is a quadriplegic with significant contractures of the upper and lower extremities. HEENT AND NECK: Within normal limits. CHEST: Clear to auscultation bilaterally. CARDIAC: Regular rate. ABDOMEN: Otherwise, soft, nontender, nondistended. The patient has a G-tube site with significant cellulitis and indentation of the G-tube site. There is a gastric drainage on to the 4 x 4 gauze overlying it. The patient has severe lower extremity contractures. LABORATORY DATA: The patient's Chem-7 is otherwise unremarkable. The white blood cell count 9.4, H and H is 12.8 and 38.5, platelet count 223. Complete metabolic panel is otherwise unremarkable. MEDICATIONS: The patient is on acetaminophen, ciprofloxacin, hydralazine, insulin, lactulose. The patient has a recent KUB on 03/22/2018, which shows overall mild decrease in stool burden compared to recent CT examination on 03/20/2018. Persistent moderate stool seen in the region of the ascending colon and rectum. The patient had upper GI series on 03/20/2018 which revealed gastrostomy tube in the stomach, normal opacification of the stomach. IMPRESSION/PLAN: The patient is being seen by multiple consultants. The patient seen by Dr. Jorden Lees yesterday as the on-call GI doctor. NG tube placed and removed because the tip was projecting out of the gastrocutaneous fistula site. We will hold NG tube feedings at this time. New G-tube will be inserted after the site heals. This can take up to 2 weeks. We will talk with Dr. Jorden Lees about the possibility of exploratory laparotomy, mini laparotomy, takedown of the gastrocutaneous fistula and an open gastrostomy tube placement. But for now, the patient will need parenteral nutrition and the patient may be of somewhat moderate to high risk with anesthesia given her developmental delay. We will also speak with family about what their opinions are regarding nonoperative management versus surgery to takedown the gastrocutaneous fistula and do an open gastrostomy tube placement. JOB# [id number]
[2018-04-04] MEDS: Zinc Oxide Ointment 60 gm TP SCH (22:38)
[2018-04-05 05:27] LABS: ALB/GLOB RATIO 0.9 (1.0-1.8); ALBUMIN 3.2 gm/dL (3.7-5.3); ALKALINE PHOSPHATASE 85 U/L (34-104); ANION GAP 12.6 (7.0-16.0); BILIRUBIN,TOTAL 0.4 mg/dL (0.3-1.0); BUN - UREA NITROGEN 19 mg/dL (7-25); CALCIUM SERUM 8.6 mg/dL (8.6-10.3); CARBON DIOXIDE 26.7 mEq/L (21.0-31.0); CHLORIDE 105 mEq/L (98-107); CHOLESTEROL 143 mg/dL (<200); CREATININE - SERUM 0.4 mg/dL (0.6-1.2); GFR AFRICAN-AMERICAN > 60.0 ml/min (>90); GFR NON AFRICAN-AMERICAN > 60.0 ml/min; GLUCOSE 124 mg/dL (70-105); PHOSPHOROUS 3.7 mg/dL (2.5-5.0); POTASSIUM SERUM 4.3 mEq/L (3.5-5.1); SGOT 36 U/L (13-39); SGPT/ALT 38 U/L (7-52); SODIUM SERUM 140 mEq/L (136-145); TOTAL PROTEIN,SERUM 6.8 gm/dL (6.0-8.3); TRIGLYCERIDES 109 mg/dL (<150)
[2018-04-05] MEDS: INSULIN LISPRO SLIDING SCALE 100 UNITS/ML UNIT SUBQ SCH ×4 (06:53→22:16)
[2018-04-05] MEDS: Docusate Sodium 100 mg/10 mL UD GT SCH ×2 (09:13→17:57)
[2018-04-05] MEDS: Calcium Carb/Vit D 500 mg/200 U Tab GT SCH ×2 (09:15→17:57)
[2018-04-05] MEDS: carBAMazepine 200 mg/10 mL UDC GT SCH ×2 (09:16→21:45)
[2018-04-05] MEDS: Lactobacillus Rhamnosus GG 15 Billion CFU CAP.SPRINK PO SCH (09:16)
[2018-04-05] MEDS: Ciprofloxacin 400mg Premix PB 400 MG/200 ML BAG IV SCH ×2 (09:21→20:57)
--- NOTE | 2018-04-05 11:49 | Internal Medicine Prog Note ---
Internal Medicine Subjective - Subjective Service Date: 04/05/18 (COMFORTABLE, NO ACUTE EVENTS) Patient is:: awake, non-verbal Per staff patient has:: no adverse event (TPN STARTED) Internal Medicine Objective - Results Result Diagrams: 04/01/18 06:15 04/05/18 04:35 Recent Labs: Laboratory Last Values WBC 9.4 Th/cmm (4.8-10.8) 04/01/18 06:15 RBC 3.89 Mil/cmm (3.80-5.10) 04/01/18 06:15 Hgb 12.8 gm/dL (12-16) 04/01/18 06:15 Hct 38.5 % (41.0-60) L 04/01/18 06:15 MCV 98.9 fl (81-100) 04/01/18 06:15 MCH 32.9 pg (27.0-31.0) H 04/01/18 06:15 MCHC Differential 33.2 pg (28.0-36.0) 04/01/18 06:15 RDW 10.9 % (11.5-20.0) L 04/01/18 06:15 Plt Count 223 Th/cmm (150-400) 04/01/18 06:15 MPV 10.2 fl 04/01/18 06:15 Neutrophils % 62.3 % (40.0-80.0) 04/01/18 06:15 Lymphocytes % 22.6 % (20.0-50.0) 04/01/18 06:15 Monocytes % 10.7 % (2.0-10.0) H 04/01/18 06:15 Eosinophils % 3.5 % (0.0-5.0) 04/01/18 06:15 Basophils % 0.9 % (0.0-2.0) 04/01/18 06:15 ESR 41 mm/hr (0-30) H 03/22/18 04:50 Sodium 140 mEq/L (136-145) 04/05/18 04:35 Potassium 4.3 mEq/L (3.5-5.1) 04/05/18 04:35 Chloride 105 mEq/L (98-107) 04/05/18 04:35 Carbon Dioxide 26.7 mEq/L (21.0-31.0) 04/05/18 04:35 Anion Gap 12.6 (7.0-16.0) 04/05/18 04:35 BUN 19 mg/dL (7-25) 04/05/18 04:35 Creatinine 0.4 mg/dL (0.6-1.2) L 04/05/18 04:35 Est GFR ( Amer) > 60.0 ml/min (>90) 04/05/18 04:35 Est GFR (Non-Af Amer) > 60.0 ml/min 04/05/18 04:35 BUN/Creatinine Ratio 47.5 04/05/18 04:35 Glucose 124 mg/dL (70-105) H 04/05/18 04:35 POC Glucose 141 MG/DL (70 - 105) H 04/05/18 10:25 Whole Bld Lactic Acid 1.20 mmol/L (0.60-1.99) 03/20/18 19:15 Calcium 8.6 mg/dL (8.6-10.3) 04/05/18 04:35 Phosphorus 3.7 mg/dL (2.5-5.0) 04/05/18 04:35 Magnesium 2.0 mg/dL (1.9-2.7) 04/05/18 04:35 Total Bilirubin 0.4 mg/dL (0.3-1.0) 04/05/18 04:35 Direct Bilirubin 0.47 mg/dL (0.0-0.2) H 03/29/18 04:35 AST 36 U/L (13-39) 04/05/18 04:35 ALT 38 U/L (7-52) 04/05/18 04:35 Alkaline Phosphatase 85 U/L (34-104) 04/05/18 04:35 C-Reactive Protein < 0.2 mg/dL (0.0-0.9) 03/22/18 04:50 Total Protein 6.8 gm/dL (6.0-8.3) 04/05/18 04:35 Albumin 3.2 gm/dL (3.7-5.3) L 04/05/18 04:35 Globulin 3.6 gm/dL 04/05/18 04:35 Albumin/Globulin Ratio 0.9 (1.0-1.8) L 04/05/18 04:35 Prealbumin 14 mg/dL (10-36) 03/29/18 04:35 Triglycerides 109 mg/dL (<150) 04/05/18 04:35 Cholesterol 143 mg/dL (<200) 04/05/18 04:35 LDL Cholesterol Direct 87 mg/dL (75-193) 03/21/18 04:45 HDL Cholesterol 65 mg/dL (23-92) 03/21/18 04:45 TSH 1.11 uIU/ml (0.34-5.60) 03/21/18 04:45 Vancomycin Trough 14.4 ug/mL (5-10) H 03/24/18 20:28 - Physical Exam Vitals and I&O: Vital Signs Temp 97.4 F 04/05/18 08:22 Pulse 97 04/05/18 08:50 Resp 16 04/05/18 09:22 BP 114/84 04/05/18 08:22 Pulse Ox 96 04/05/18 08:50 Intake & Output 04/04/18 04/05/18 04/05/18 18:59 06:59 18:59 Intake Total 1551.6667 305 Output Total 0 Balance 1551.6667 305 Weight (lbs) 44.906 kg 44.951 kg Intake: Intake, IV Amount 1551.6667 305 Ciprofloxacin 400mg 200 200 Premix PB 400 mg In 200 ml @ 200 mls/hr IV Q12HR [facility] Rx#:[id number] Levetiracetam 500 mg In 105 105 Sodium Chloride 0.9% 100 ml @ 400 mls/hr IV Q12H [facility] Rx#:[id number] Sodium Chloride 40 meq 1246.6667 Potassium Chloride 40 meq Calcium Gluconate 1 gm Potassium Phosphate 20 mmole In Amino Acids 4.25 % /Dext 10% 1,000 ml In Intralipids 20% 200 ml @ 75 mls/hr IV .[id number] [facility] Rx#:[id number] Oral 0 Output: Stool 0 Other: # Voids 4 Weight Source Bedscale Bedscale Active Medications: Current Medications Acetaminophen (Tylenol 650mg/20.3ml Suspension) 650 mg GT Q4HR PRN PRN Reason: Pain Or Fever >100 Stop: 05/20/18 10:46 Albuterol/Ipratropium (Duoneb Neb) 3 ml HHN [id number] PRN PRN Reason: sob Stop: 05/20/18 10:46 Last Admin: 04/03/18 08:11 Dose: 3 ml Bisacodyl (Dulcolax 10 Mg Supp) 10 mg RC Q96H PRN PRN Reason: Constipation Stop: 05/20/18 10:46 Last Admin: 03/22/18 19:42 Dose: 10 mg Calcium/Vitamin D (Oscal W/Vitamin D) 2 tab GT BID [facility] Stop: 05/31/18 08:59 Last Admin: 04/05/18 09:15 Dose: Not Given Carbamazepine (Tegretol) 400 mg GT Q12HR@0900,2100 [facility] Stop: 05/20/18 10:59 Last Admin: 04/05/18 09:16 Dose: Not Given Docusate Sodium (Colace) 200 mg GT BID [facility] Stop: 05/20/18 10:59 Last Admin: 04/05/18 09:13 Dose: Not Given Hydralazine HCl (Apresoline 20 Mg/Ml) 20 mg IV Q6HR PRN PRN Reason: SBP>160 Stop: 05/23/18 13:11 Levetiracetam 500 mg/ Sodium (Chloride) 105 mls @ 400 mls/hr IV Q12H [facility] Stop: 05/21/18 22:59 Last Admin: 04/05/18 10:22 Dose: 400 mls/hr Ciprofloxacin (Cipro 400mg Premix Pb) 400 mg in 200 mls @ 200 mls/hr IV Q12HR [facility] Stop: 06/01/18 20:59 Last Admin: 04/05/18 09:21 Dose: 200 mls/hr Sodium Chloride 40 meq/Potassium Chloride 40 meq/Calcium Gluconate 1 gm/ Potassium Phosphate 20 mmole/Amino Acids/ Fat Emulsion Intravenous 1,246.6667 mls @ 75 mls/hr IV .[id number] [facility] Stop: 06/02/18 15:59 Last Admin: 04/04/18 17:18 Dose: 75 mls/hr Insulin Human Lispro (Humalog Insulin Sliding Scale) 0 units SUBQ Q6H [facility]; Protocol Stop: 05/22/18 15:59 Last Admin: 04/05/18 10:33 Dose: Not Given Lactobacillus Rhamnosus (Culturelle 15b) 1 each PO DAILY [facility] Stop: 05/25/18 08:59 Last Admin: 04/05/18 09:16 Dose: Not Given Lactulose (Cephulac) 10 gm GT DAILY PRN PRN Reason: Constipation Last Admin: 03/22/18 13:47 Dose: 10 gm Magnesium Hydroxide (Milk Of Magnesia) 30 ml GT Q72H PRN PRN Reason: Constipation Stop: 05/20/18 10:48 Metoprolol Tartrate (Lopressor) 12.5 mg GT QPM [facility] Stop: 05/20/18 16:59 Last Admin: 04/04/18 17:16 Dose: Not Given Miscellaneous (Probiotic Screen) 1 [facility] PRN PRN PRN Reason: PROTOCOL Stop: 05/24/18 17:10 Miscellaneous (Ppn Per Pharmacy) 1 [facility] PRN PRN PRN Reason: PROTOCOL Stop: 06/01/18 15:22 Petrolatum (Zinc Oxide) 1 appl TP HS [facility] Stop: 05/21/18 20:59 Last Admin: 04/04/18 22:38 Dose: 1 appl Sodium Phosphate (Fleet Enema) 135 ml RC Q96H PRN PRN Reason: IF DULCOLAX INEFFECTIVE Stop: 05/20/18 10:46 General: thin, NAD HEENT: NC/AT, PERRLA, EOMI Neck: No JVD, no No thyromegaly Lungs: CTAB Cardiovascular: RRR Abdomen: soft, non-tender, +GT - redness, +GT - discharge, other (GT SITE WITH IMPROVED ERYTHEMA) Extremities: clear Neurological: no change, spastic - Procedures Procedures: Procedures Procedure Code Date ASPIR CURETT UTERUS NEC 69.59 06/12/11 CHANGE FEEDING DEVICE IN UP INTEST TRACT, MAINFRAME CONSULTANT APPROACH 1M35PHP 01/27/16 CHANGE GASTROSTOMY TUBE 61874 05/21/15 DILATION AND CURETTAGE 67256 06/12/11 EGD BIOPSY SINGLE/MULTIPLE 99404 07/15/16 EXCISION OF STOMACH, ENDO, DIAGN [id number] 07/15/16 INSERTION OF FEEDING DEVICE INTO STOMACH, ENDO [id number] 07/15/16 LAPARO PROC ABDM/PER/OMENT 32760 07/29/13 LAPAROSCOP APPENDECTOMY 47.01 07/29/13 LAPAROSCOP LYSIS-PERITONEAL ADHES 54.51 07/29/13 LAPAROSCOPY APPENDECTOMY 96976 06/14/14 REPLACE GASTROSTOMY TUBE 97.02 06/11/15 Internal Medicine Assmt/Plan - Assessment Assessment: 1. GTUBE MALFUNCTION WITH LEAKAGE 2. GT SITE CELLULITIS/DRAINAGE (GC FISTULA) 3. COMPLEX WOUND INFX-PSEUDOMONAS AERUGINOSA 3. HISTORY OF DYSPHAGIA-PEG PLACEMENT 4. HX OF CONSTIPATION 5. HYPONATREMIA--RESOLVED 6. HX OF SEIZURE DISORDER-STABLE 7. HX OF INTELLECTUAL DISABILITY 8. S/P PICC LINE PLACEMENT 9. ELECTROLYTE IMBALANCE-STABLE/MONITOR. - Plan Plan: CONT WITH CURRENT TX PLAN AND MGT CONT WITH TPN, CONT TO HOLD GT FEEDS FOR NOW CONT WITH IV ABXS (CIPRO), AND LOCAL WOUND CARE REPLETE LYTES/MONITOR. SURGICAL PLAN NOTED/EVAL APPRECIATED GI/ID FU Nutritional Asmnt/Malnutr-PDOC - Dietary Evaluation Malnutrition Findings (Please click <Entered> for more info): Nutritional Asmnt/Malnutrition Start: 03/21/18 13: 29 Text: Status: Complete Freq: Protocol: Document 03/21/18 13:29 LCHENG (Rec: 03/21/18 13:45 [email or web address] Nutritional Asmnt/Malnutrition Patient General Information Nutritional Screening High Risk Consult Diagnosis displacement of Gtube, Gtube site cellulitis Pertinent Medical Hx/Surgical Hx HTN, PUD?GERD, seizures, hepatitis B and C, developmentally disabled, quadriplegic Subjective Information Consult reiceved for shayna score 11. Pt seen in bed, non verbal noted. Per nurse pt is tolerating current tube feeding. CALEB Rdz asked about TF rate since pt was receiving Jevity 1.5 at halfway and our hospital only carries Jevity 1.2. Current Diet Order/ Nutrition Support Jevity 1.2 at 40ml/hr x 20hr, providing 960kcal and 44g protein Pertinent Medications oscal w/vit D, colace, nacl 0. 9%, vancomycin Pertinent Labs 2/4 Cl 108, Cr 0.4 2/3 Cr 0.4, glucose 109, alb 3 .6 Nutritional Hx/Data Height 1.6 m Height (Calculated Centimeters) 160.0 Current Weight (lbs) 45.359 kg Weight (Calculated Kilograms) 45.4 Weight (Calculated Grams) 39418.2 [place] Body Weight 115 Body Mass Index (BMI) 17.6 Weight Status Underweight GI Symptoms GI Symptoms None Last BM not indicated Usual diet at home Jevity 1.5 at 40ml/hr x 20hr at [facility] Skin Integrity/Comment: cellulitis reddened to Gtube site shayna 11 Estimated Nutritional Goals Calories/Kcals/Kg 25-30 IBW 52kg Kcals Calculated 8333-1547 Protein g/k-1.2 Protein Calculated 52-62 Fluid: ml 1300-1560ml (1ml/kcal) Nutritional Problem 1. Problem Problem inadequate intake from enteral feeding Etiology current TF regimen not meeting nutritional needs Signs/Symptoms: current TF providing 960kcal and 44g protein Malnutrition Related to Morbid Obesity Malnutrition related to morbid obesity No Intervention/Recommendation Comments 1. Recommend to increase TF rate to Jevity 1.2 at 55ml/hr x 20hr. It provides 1320kcal, 61g protein, 888ml free water, meeting 100% of nutritional needs. CALEB Rdz notified. 2. Monitor TF rate, tolerance, wt, skin integrity and labs 3. F/U as high risk in 2-3 days, 2/5-2/6 Expected Outcomes/Goals Expected Outcomes/Goals 1. Pt to meet at least 90% of nutritional needs via nutrition support with tolerance 2. Wt stability, skin to remain intact, labs to approach WNL.
--- NOTE | 2018-04-05 15:14 | GI Progress Note ---
Subjective - Review of Systems Service Date: 04/05/18 Events since last encounter: No events Objective - Results Result Diagrams: 04/01/18 06:15 04/05/18 04:35 Recent Labs: Laboratory Last Values WBC 9.4 Th/cmm (4.8-10.8) 04/01/18 06:15 RBC 3.89 Mil/cmm (3.80-5.10) 04/01/18 06:15 Hgb 12.8 gm/dL (12-16) 04/01/18 06:15 Hct 38.5 % (41.0-60) L 04/01/18 06:15 MCV 98.9 fl (81-100) 04/01/18 06:15 MCH 32.9 pg (27.0-31.0) H 04/01/18 06:15 MCHC Differential 33.2 pg (28.0-36.0) 04/01/18 06:15 RDW 10.9 % (11.5-20.0) L 04/01/18 06:15 Plt Count 223 Th/cmm (150-400) 04/01/18 06:15 MPV 10.2 fl 04/01/18 06:15 Neutrophils % 62.3 % (40.0-80.0) 04/01/18 06:15 Lymphocytes % 22.6 % (20.0-50.0) 04/01/18 06:15 Monocytes % 10.7 % (2.0-10.0) H 04/01/18 06:15 Eosinophils % 3.5 % (0.0-5.0) 04/01/18 06:15 Basophils % 0.9 % (0.0-2.0) 04/01/18 06:15 ESR 41 mm/hr (0-30) H 03/22/18 04:50 Sodium 140 mEq/L (136-145) 04/05/18 04:35 Potassium 4.3 mEq/L (3.5-5.1) 04/05/18 04:35 Chloride 105 mEq/L (98-107) 04/05/18 04:35 Carbon Dioxide 26.7 mEq/L (21.0-31.0) 04/05/18 04:35 Anion Gap 12.6 (7.0-16.0) 04/05/18 04:35 BUN 19 mg/dL (7-25) 04/05/18 04:35 Creatinine 0.4 mg/dL (0.6-1.2) L 04/05/18 04:35 Est GFR ( Amer) > 60.0 ml/min (>90) 04/05/18 04:35 Est GFR (Non-Af Amer) > 60.0 ml/min 04/05/18 04:35 BUN/Creatinine Ratio 47.5 04/05/18 04:35 Glucose 124 mg/dL (70-105) H 04/05/18 04:35 POC Glucose 141 MG/DL (70 - 105) H 04/05/18 10:25 Whole Bld Lactic Acid 1.20 mmol/L (0.60-1.99) 03/20/18 19:15 Calcium 8.6 mg/dL (8.6-10.3) 04/05/18 04:35 Phosphorus 3.7 mg/dL (2.5-5.0) 04/05/18 04:35 Magnesium 2.0 mg/dL (1.9-2.7) 04/05/18 04:35 Total Bilirubin 0.4 mg/dL (0.3-1.0) 04/05/18 04:35 Direct Bilirubin 0.47 mg/dL (0.0-0.2) H 03/29/18 04:35 AST 36 U/L (13-39) 04/05/18 04:35 ALT 38 U/L (7-52) 04/05/18 04:35 Alkaline Phosphatase 85 U/L (34-104) 04/05/18 04:35 C-Reactive Protein < 0.2 mg/dL (0.0-0.9) 03/22/18 04:50 Total Protein 6.8 gm/dL (6.0-8.3) 04/05/18 04:35 Albumin 3.2 gm/dL (3.7-5.3) L 04/05/18 04:35 Globulin 3.6 gm/dL 04/05/18 04:35 Albumin/Globulin Ratio 0.9 (1.0-1.8) L 04/05/18 04:35 Prealbumin 14 mg/dL (10-36) 03/29/18 04:35 Triglycerides 109 mg/dL (<150) 04/05/18 04:35 Cholesterol 143 mg/dL (<200) 04/05/18 04:35 LDL Cholesterol Direct 87 mg/dL (75-193) 03/21/18 04:45 HDL Cholesterol 65 mg/dL (23-92) 03/21/18 04:45 TSH 1.11 uIU/ml (0.34-5.60) 03/21/18 04:45 Vancomycin Trough 14.4 ug/mL (5-10) H 03/24/18 20:28 - Physical Exam Vitals and I&O: Vital Signs Temp 97.6 F 04/05/18 15:05 Pulse 98 04/05/18 15:05 Resp 18 04/05/18 15:05 BP 119/71 04/05/18 15:05 Pulse Ox 97 04/05/18 15:05 Intake & Output 04/04/18 04/05/18 04/05/18 18:59 06:59 18:59 Intake Total 1551.6667 305 200 Output Total 0 Balance 1551.6667 305 200 Weight (lbs) 44.906 kg 44.951 kg Intake: Intake, IV Amount 1551.6667 305 200 Ciprofloxacin 400mg 200 200 200 Premix PB 400 mg In 200 ml @ 200 mls/hr IV Q12HR [facility] Rx#:[id number] Levetiracetam 500 mg In 105 105 Sodium Chloride 0.9% 100 ml @ 400 mls/hr IV Q12H [facility] Rx#:[id number] Sodium Chloride 40 meq 1246.6667 Potassium Chloride 40 meq Calcium Gluconate 1 gm Potassium Phosphate 20 mmole In Amino Acids 4.25 % /Dext 10% 1,000 ml In Intralipids 20% 200 ml @ 75 mls/hr IV .[id number] [facility] Rx#:[id number] Oral 0 Output: Stool 0 Other: # Voids 4 Weight Source Bedscale Bedscale Active Medications: Current Medications Acetaminophen (Tylenol 650mg/20.3ml Suspension) 650 mg GT Q4HR PRN PRN Reason: Pain Or Fever >100 Stop: 05/20/18 10:46 Albuterol/Ipratropium (Duoneb Neb) 3 ml HHN [id number] PRN PRN Reason: sob Stop: 05/20/18 10:46 Last Admin: 04/03/18 08:11 Dose: 3 ml Bisacodyl (Dulcolax 10 Mg Supp) 10 mg RC Q96H PRN PRN Reason: Constipation Stop: 05/20/18 10:46 Last Admin: 03/22/18 19:42 Dose: 10 mg Calcium/Vitamin D (Oscal W/Vitamin D) 2 tab GT BID [facility] Stop: 05/31/18 08:59 Last Admin: 04/05/18 09:15 Dose: Not Given Carbamazepine (Tegretol) 400 mg GT Q12HR@0900,2100 [facility] Stop: 05/20/18 10:59 Last Admin: 04/05/18 09:16 Dose: Not Given Docusate Sodium (Colace) 200 mg GT BID [facility] Stop: 05/20/18 10:59 Last Admin: 04/05/18 09:13 Dose: Not Given Hydralazine HCl (Apresoline 20 Mg/Ml) 20 mg IV Q6HR PRN PRN Reason: SBP>160 Stop: 05/23/18 13:11 Levetiracetam 500 mg/ Sodium (Chloride) 105 mls @ 400 mls/hr IV Q12H [facility] Stop: 05/21/18 22:59 Last Admin: 04/05/18 10:22 Dose: 400 mls/hr Ciprofloxacin (Cipro 400mg Premix Pb) 400 mg in 200 mls @ 200 mls/hr IV Q12HR [facility] Stop: 06/01/18 20:59 Last Infusion: 04/05/18 10:25 Dose: Infused Sodium Chloride 40 meq/Potassium Chloride 40 meq/Calcium Gluconate 1 gm/ Potassium Phosphate 20 mmole/Amino Acids/ Fat Emulsion Intravenous 1,246.6667 mls @ 75 mls/hr IV .[id number] [facility] Stop: 06/02/18 15:59 Last Admin: 04/04/18 17:18 Dose: 75 mls/hr Insulin Human Lispro (Humalog Insulin Sliding Scale) 0 units SUBQ Q6H [facility]; Protocol Stop: 05/22/18 15:59 Last Admin: 04/05/18 10:33 Dose: Not Given Lactobacillus Rhamnosus (Culturelle 15b) 1 each PO DAILY [facility] Stop: 05/25/18 08:59 Last Admin: 04/05/18 09:16 Dose: Not Given Lactulose (Cephulac) 10 gm GT DAILY PRN PRN Reason: Constipation Last Admin: 03/22/18 13:47 Dose: 10 gm Magnesium Hydroxide (Milk Of Magnesia) 30 ml GT Q72H PRN PRN Reason: Constipation Stop: 05/20/18 10:48 Metoprolol Tartrate (Lopressor) 12.5 mg GT QPM [facility] Stop: 05/20/18 16:59 Last Admin: 04/04/18 17:16 Dose: Not Given Miscellaneous (Probiotic Screen) 1 ea PRN PRN PRN Reason: PROTOCOL Stop: 05/24/18 17:10 Miscellaneous (Ppn Per Pharmacy) 1 ea PRN PRN PRN Reason: PROTOCOL Stop: 06/01/18 15:22 Petrolatum (Zinc Oxide) 1 appl TP HS [facility] Stop: 05/21/18 20:59 Last Admin: 04/04/18 22:38 Dose: 1 appl Sodium Phosphate (Fleet Enema) 135 ml RC Q96H PRN PRN Reason: IF DULCOLAX INEFFECTIVE Stop: 05/20/18 10:46 General: Alert HEENT: Atraumatic Neck: Supple Cardiovascular: Regular rate Lungs: Clear to auscultation Abdomen: Bowel sounds, Soft, Other (GC fistula with erythema, bandaged. Some purulent drainage), no Tender, no Distended, no Rebound, no Mass, no Guarding Extremities: no Edema Neurological: Sensation intact Skin: Rash Psych/Mental Status: Mood NL - Procedures Procedures: Procedures Procedure Code Date ASPIR CURETT UTERUS NEC 69.59 06/12/11 CHANGE FEEDING DEVICE IN UP INTEST TRACT, SAFETY LEAD APPROACH [id number] 01/27/16 CHANGE GASTROSTOMY TUBE 08746 05/21/15 DILATION AND CURETTAGE 27027 06/12/11 EGD BIOPSY SINGLE/MULTIPLE 58518 07/15/16 EXCISION OF STOMACH, ENDO, DIAGN [id number] 07/15/16 INSERTION OF FEEDING DEVICE INTO STOMACH, ENDO [id number] 07/15/16 LAPARO PROC ABDM/PER/OMENT 79337 07/29/13 LAPAROSCOP APPENDECTOMY 47.01 07/29/13 LAPAROSCOP LYSIS-PERITONEAL ADHES 54.51 07/29/13 LAPAROSCOPY APPENDECTOMY 97168 07/29/13 REPLACE GASTROSTOMY TUBE 97.02 07/26/14 Assessment/Plan - Assessment Assessment: Assessment: # G tube site cellulitis # Dysphagia # Developmental delay As of 03/25, the site looked worse thus the G tube was pulled. Will need to wait for the area to heal prior to inserting a new one On 03/30, there is still erythema and some leakage from the area. Unclear if proper wound care is being applied to this area. On 04/01, the site looks more inflamed. Does not appear to be leakage from NG feeding, but infection on the skin is not improving. on 04/02 - NG tube was pulled bc of tip extruding out of gc fistula site Plan: - appreciate ID consult to help with unresolving cellulitis. - site has not healed or closed on its own; Discussed case with Dr Molina: most likely Plan will be likely fistula closure and surgical PEG -Discussed other option of Over the scope clip closure, but likely this will increase hospital LOS and take 1-2 weeks before safe to insert new PEG tube but certainly an option, but not the best option in this case -wound care
[2018-04-05] MEDS: SODIUM CHLORIDE IV SCH (16:38)
[2018-04-05] MEDS: [UNRECOGNIZED DRUG - OTHER] IV SCH (16:38)
[2018-04-05] MEDS: CALCIUM GLUCONATE IV SCH (16:38)
[2018-04-05] MEDS: POTASSIUM CHLORIDE IV SCH (16:38)
[2018-04-05] MEDS: Albuterol/Ipratropium Neb 3 ML AERS HHN PRN (19:26)
[2018-04-05] MEDS: Zinc Oxide Ointment 60 gm TP SCH (20:58)
--- NOTE | 2018-04-06 03:55 | Progress Notes ---
DATE: 04/05/2018 TIME: 11:41 p.m. SUBJECTIVE: The patient is resting in bed comfortably, in no acute distress. OBJECTIVE: VITAL SIGNS: Afebrile, vital signs stable, encephalopathic, severe contractures of all 4 extremities. CHEST: Clear to auscultation bilaterally. HEART: Regular rate. ABDOMEN: Soft, nontender, nondistended. NEUROVASCULAR AND EXTREMITY: Otherwise normal. G-tube has been removed. The patient's creatinine 0.4. LABORATORY DATA: White blood cell count last checked was on 04/01/2018, with white blood cell count 9.4. The patient is on ciprofloxacin for antibiotics. IMPRESSION AND PLAN: All reports notes by multiple consultants have been read. 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 According to the nurses, there is not significant drainage from the old G-tube site. Personally what I would do is in a few days I would consider a replacement G-tube with a large balloon and put a G-tube stabilizer to anchor the balloon to the abdominal wall to prevent leaking. If this still causes leaking around the G-tube site and persistent cellulitis, then I would proceed with mini laparotomy, takedown of the gastrocutaneous fistula, and new gastrostomy tube placement. Considering replacement of the G-tube with the large balloon and G-tube stabilizer would be a less invasive procedure. I personally think that clipping of this G-tube site probably has a 50% failure rate and may prolong the patient's hospitalization. The patient has no obvious signs of sepsis. Continue antibiotics at this point. I will inquire with the OR and GI services to find out what replacement G-tubes are available. JOB# [id number]
[2018-04-06] MEDS: INSULIN LISPRO SLIDING SCALE 100 UNITS/ML UNIT SUBQ SCH ×4 (05:28→22:50)
[2018-04-06 06:20] LABS: ANION GAP 13.3 (7.0-16.0); BUN - UREA NITROGEN 18 mg/dL (7-25); CALCIUM SERUM 8.6 mg/dL (8.6-10.3); CARBON DIOXIDE 22.8 mEq/L (21.0-31.0); CHLORIDE 106 mEq/L (98-107); CREATININE - SERUM 0.3 mg/dL (0.6-1.2); GFR AFRICAN-AMERICAN > 60.0 ml/min (>90); GFR NON AFRICAN-AMERICAN > 60.0 ml/min; GLUCOSE 126 mg/dL (70-105); MAGNESIUM 1.9 mg/dL (1.9-2.7); PHOSPHOROUS 3.8 mg/dL (2.5-5.0); POTASSIUM SERUM 4.1 mEq/L (3.5-5.1); SODIUM SERUM 138 mEq/L (136-145)
--- NOTE | 2018-04-06 08:52 | Internal Medicine Prog Note ---
Internal Medicine Subjective - Subjective Service Date: 04/06/18 (no acute events) Patient is:: awake, non-verbal Per staff patient has:: no adverse event (TPN STARTED) Internal Medicine Objective - Results Result Diagrams: 04/01/18 06:15 04/06/18 06:00 Recent Labs: Laboratory Last Values WBC 9.4 Th/cmm (4.8-10.8) 04/01/18 06:15 RBC 3.89 Mil/cmm (3.80-5.10) 04/01/18 06:15 Hgb 12.8 gm/dL (12-16) 04/01/18 06:15 Hct 38.5 % (41.0-60) L 04/01/18 06:15 MCV 98.9 fl (81-100) 04/01/18 06:15 MCH 32.9 pg (27.0-31.0) H 04/01/18 06:15 MCHC Differential 33.2 pg (28.0-36.0) 04/01/18 06:15 RDW 10.9 % (11.5-20.0) L 04/01/18 06:15 Plt Count 223 Th/cmm (150-400) 04/01/18 06:15 MPV 10.2 fl 04/01/18 06:15 Neutrophils % 62.3 % (40.0-80.0) 04/01/18 06:15 Lymphocytes % 22.6 % (20.0-50.0) 04/01/18 06:15 Monocytes % 10.7 % (2.0-10.0) H 04/01/18 06:15 Eosinophils % 3.5 % (0.0-5.0) 04/01/18 06:15 Basophils % 0.9 % (0.0-2.0) 04/01/18 06:15 ESR 41 mm/hr (0-30) H 03/22/18 04:50 Sodium 138 mEq/L (136-145) 04/06/18 06:00 Potassium 4.1 mEq/L (3.5-5.1) 04/06/18 06:00 Chloride 106 mEq/L (98-107) 04/06/18 06:00 Carbon Dioxide 22.8 mEq/L (21.0-31.0) 04/06/18 06:00 Anion Gap 13.3 (7.0-16.0) 04/06/18 06:00 BUN 18 mg/dL (7-25) 04/06/18 06:00 Creatinine 0.3 mg/dL (0.6-1.2) L 04/06/18 06:00 Est GFR ( Amer) > 60.0 ml/min (>90) 04/06/18 06:00 Est GFR (Non-Af Amer) > 60.0 ml/min 04/06/18 06:00 BUN/Creatinine Ratio 60.0 04/06/18 06:00 Glucose 126 mg/dL (70-105) H 04/06/18 06:00 POC Glucose 123 MG/DL (70 - 105) H 04/06/18 05:25 Whole Bld Lactic Acid 1.20 mmol/L (0.60-1.99) 03/20/18 19:15 Calcium 8.6 mg/dL (8.6-10.3) 04/06/18 06:00 Phosphorus 3.8 mg/dL (2.5-5.0) 04/06/18 06:00 Magnesium 1.9 mg/dL (1.9-2.7) 04/06/18 06:00 Total Bilirubin 0.4 mg/dL (0.3-1.0) 04/05/18 04:35 Direct Bilirubin 0.47 mg/dL (0.0-0.2) H 03/29/18 04:35 AST 36 U/L (13-39) 04/05/18 04:35 ALT 38 U/L (7-52) 04/05/18 04:35 Alkaline Phosphatase 85 U/L (34-104) 04/05/18 04:35 C-Reactive Protein < 0.2 mg/dL (0.0-0.9) 03/22/18 04:50 Total Protein 6.8 gm/dL (6.0-8.3) 04/05/18 04:35 Albumin 3.2 gm/dL (3.7-5.3) L 04/05/18 04:35 Globulin 3.6 gm/dL 04/05/18 04:35 Albumin/Globulin Ratio 0.9 (1.0-1.8) L 04/05/18 04:35 Prealbumin 13 mg/dL (10-36) 04/05/18 04:35 Triglycerides 109 mg/dL (<150) 04/05/18 04:35 Cholesterol 143 mg/dL (<200) 04/05/18 04:35 LDL Cholesterol Direct 87 mg/dL (75-193) 03/21/18 04:45 HDL Cholesterol 65 mg/dL (23-92) 03/21/18 04:45 TSH 1.11 uIU/ml (0.34-5.60) 03/21/18 04:45 Vancomycin Trough 14.4 ug/mL (5-10) H 03/24/18 20:28 - Physical Exam Vitals and I&O: Vital Signs Temp 98.9 F 04/06/18 07:26 Pulse 95 04/06/18 07:27 Resp 18 04/06/18 07:27 BP 121/71 04/06/18 07:26 Pulse Ox 96 04/06/18 07:27 Intake & Output 04/05/18 04/06/18 04/06/18 18:59 06:59 18:59 Intake Total 2451.6667 Balance 2451.6667 Weight (lbs) 44.906 kg 44.906 kg Intake: Intake, IV Amount 1551.6667 Ciprofloxacin 400mg 200 Premix PB 400 mg In 200 ml @ 200 mls/hr IV Q12HR [facility] Rx#:[id number] Levetiracetam 500 mg In 105 Sodium Chloride 0.9% 100 ml @ 400 mls/hr IV Q12H [facility] Rx#:[id number] Sodium Chloride 40 meq 1246.6667 Potassium Chloride 40 meq Calcium Gluconate 1 gm Potassium Phosphate 20 mmole In Amino Acids 4.25 % /Dext 10% 1,000 ml In Intralipids 20% 200 ml @ 75 mls/hr IV .[id number] [facility] Rx#:[id number] TPN/PPN 900 Other: # Voids 4 3 # Bowel Movements 0 Weight Source Bedscale Bedscale Active Medications: Current Medications Acetaminophen (Tylenol 650mg/20.3ml Suspension) 650 mg GT Q4HR PRN PRN Reason: Pain Or Fever >100 Stop: 05/20/18 10:46 Albuterol/Ipratropium (Duoneb Neb) 3 ml HHN [id number] PRN PRN Reason: sob Stop: 05/20/18 10:46 Last Admin: 04/05/18 19:26 Dose: 3 ml Bisacodyl (Dulcolax 10 Mg Supp) 10 mg RC Q96H PRN PRN Reason: Constipation Stop: 05/20/18 10:46 Last Admin: 03/22/18 19:42 Dose: 10 mg Calcium/Vitamin D (Oscal W/Vitamin D) 2 tab GT BID [facility] Stop: 05/31/18 08:59 Last Admin: 04/05/18 17:57 Dose: Not Given Carbamazepine (Tegretol) 400 mg GT Q12HR@0900,2100 [facility] Stop: 05/20/18 10:59 Last Admin: 04/05/18 21:45 Dose: Not Given Docusate Sodium (Colace) 200 mg GT BID [facility] Stop: 05/20/18 10:59 Last Admin: 04/05/18 17:57 Dose: Not Given Hydralazine HCl (Apresoline 20 Mg/Ml) 20 mg IV Q6HR PRN PRN Reason: SBP>160 Stop: 05/23/18 13:11 Levetiracetam 500 mg/ Sodium (Chloride) 105 mls @ 400 mls/hr IV Q12H [facility] Stop: 05/21/18 22:59 Last Admin: 04/05/18 22:32 Dose: 400 mls/hr Ciprofloxacin (Cipro 400mg Premix Pb) 400 mg in 200 mls @ 200 mls/hr IV Q12HR [facility] Stop: 06/01/18 20:59 Last Admin: 04/05/18 20:57 Dose: 200 mls/hr Sodium Chloride 40 meq/Potassium Chloride 40 meq/Calcium Gluconate 1 gm/ Potassium Phosphate 20 mmole/Amino Acids/ Fat Emulsion Intravenous 1,246.6667 mls @ 75 mls/hr IV .[id number] [facility] Stop: 06/02/18 15:59 Last Admin: 04/05/18 16:38 Dose: 75 mls/hr Insulin Human Lispro (Humalog Insulin Sliding Scale) 0 units SUBQ Q6H [facility]; Protocol Stop: 05/22/18 15:59 Last Admin: 04/06/18 05:28 Dose: Not Given Lactobacillus Rhamnosus (Culturelle 15b) 1 each PO DAILY [facility] Stop: 05/25/18 08:59 Last Admin: 04/05/18 09:16 Dose: Not Given Lactulose (Cephulac) 10 gm GT DAILY PRN PRN Reason: Constipation Last Admin: 03/22/18 13:47 Dose: 10 gm Magnesium Hydroxide (Milk Of Magnesia) 30 ml GT Q72H PRN PRN Reason: Constipation Stop: 05/20/18 10:48 Metoprolol Tartrate (Lopressor) 12.5 mg GT QPM [facility] Stop: 05/20/18 16:59 Last Admin: 04/05/18 17:56 Dose: Not Given Miscellaneous (Probiotic Screen) 1 [facility] PRN PRN PRN Reason: PROTOCOL Stop: 05/24/18 17:10 Miscellaneous (Ppn Per Pharmacy) 1 [facility] PRN PRN PRN Reason: PROTOCOL Stop: 06/01/18 15:22 Petrolatum (Zinc Oxide) 1 appl TP HS [facility] Stop: 05/21/18 20:59 Last Admin: 04/05/18 20:58 Dose: 1 appl Sodium Phosphate (Fleet Enema) 135 ml RC Q96H PRN PRN Reason: IF DULCOLAX INEFFECTIVE Stop: 05/20/18 10:46 General: thin, NAD HEENT: NC/AT, PERRLA, EOMI Neck: No JVD, no No thyromegaly Lungs: CTAB Cardiovascular: RRR Abdomen: soft, non-tender, +GT - redness, +GT - discharge, other (GT SITE WITH IMPROVED ERYTHEMA) Extremities: clear Neurological: no change, spastic - Procedures Procedures: Procedures Procedure Code Date ASPIR CURETT UTERUS NEC 69.59 06/12/11 CHANGE FEEDING DEVICE IN UP INTEST TRACT, POLISHING MACHINE TENDER APPROACH [id number] 01/27/16 CHANGE GASTROSTOMY TUBE 35777 05/21/15 DILATION AND CURETTAGE 16839 06/12/11 EGD BIOPSY SINGLE/MULTIPLE 11566 07/15/16 EXCISION OF STOMACH, ENDO, DIAGN [id number] 07/15/16 INSERTION OF FEEDING DEVICE INTO STOMACH, ENDO [id number] 07/15/16 [facility] PROC ABDM/PER/OMENT 09054 07/29/13 LAPAROSCOP APPENDECTOMY 47.01 07/29/13 LAPAROSCOP LYSIS-PERITONEAL ADHES 54.51 07/29/13 LAPAROSCOPY APPENDECTOMY 51181 07/29/13 REPLACE GASTROSTOMY TUBE 97.02 07/26/14 Internal Medicine Assmt/Plan - Assessment Assessment: 1. GTUBE MALFUNCTION WITH LEAKAGE 2. GT SITE CELLULITIS/DRAINAGE (GC FISTULA) 3. COMPLEX WOUND INFX-PSEUDOMONAS AERUGINOSA 3. HISTORY OF DYSPHAGIA-PEG PLACEMENT 4. HX OF CONSTIPATION 5. HYPONATREMIA--RESOLVED 6. HX OF SEIZURE DISORDER-STABLE 7. HX OF INTELLECTUAL DISABILITY 8. S/P PICC LINE PLACEMENT 9. ELECTROLYTE IMBALANCE-STABLE/MONITOR. - Plan Plan: CONT WITH CURRENT TX PLAN AND MGT CONT WITH TPN, CONT TO HOLD GT FEEDS FOR NOW CONT WITH IV ABXS (CIPRO), AND LOCAL WOUND CARE REPLETE LYTES/MONITOR. SURGICAL PLAN NOTED/EVAL APPRECIATED GI/ID FU Nutritional Asmnt/Malnutr-PDOC - Dietary Evaluation Malnutrition Findings (Please click <Entered> for more info): Nutritional Asmnt/Malnutrition Start: 03/21/18 13: 29 Text: Status: Complete Freq: Protocol: Document 03/21/18 13:29 LCHENG (Rec: 03/21/18 13:45 [facility] Nutritional Asmnt/Malnutrition Patient General Information Nutritional Screening High Risk Consult Diagnosis displacement of Gtube, Gtube site cellulitis Pertinent Medical Hx/Surgical Hx HTN, PUD?GERD, seizures, hepatitis B and C, developmentally disabled, quadriplegic Subjective Information Consult reiceved for shayna score 11. Pt seen in bed, non verbal noted. Per nurse pt is tolerating current tube feeding. CALEB Rdz asked about TF rate since pt was receiving Jevity 1.5 at [facility] and our hospital only carries Jevity 1.2. Current Diet Order/ Nutrition Support Jevity 1.2 at 40ml/hr x 20hr, providing 960kcal and 44g protein Pertinent Medications oscal w/vit D, colace, nacl 0. 9%, vancomycin Pertinent Labs 2/4 Cl 108, Cr 0.4 2/3 Cr 0.4, glucose 109, alb 3 .6 Nutritional Hx/Data Height 1.6 m Height (Calculated Centimeters) 160.0 Current Weight (lbs) 45.359 kg Weight (Calculated Kilograms) 45.4 Weight (Calculated Grams) 92985.2 [place] Body Weight 115 Body Mass Index (BMI) 17.6 Weight Status Underweight GI Symptoms GI Symptoms None Last BM not indicated Usual diet at home Jevity 1.5 at 40ml/hr x 20hr at [facility] Skin Integrity/Comment: cellulitis reddened to Gtube site shayna 11 Estimated Nutritional Goals Calories/Kcals/Kg 25-30 IBW 52kg Kcals Calculated 2123-3831 Protein g/k-1.2 Protein Calculated 52-62 Fluid: ml 1300-1560ml (1ml/kcal) Nutritional Problem 1. Problem Problem inadequate intake from enteral feeding Etiology current TF regimen not meeting nutritional needs Signs/Symptoms: current TF providing 960kcal and 44g protein Malnutrition Related to Morbid Obesity Malnutrition related to morbid obesity No Intervention/Recommendation Comments 1. Recommend to increase TF rate to Jevity 1.2 at 55ml/hr x 20hr. It provides 1320kcal, 61g protein, 888ml free water, meeting 100% of nutritional needs. CALEB Rdz notified. 2. Monitor TF rate, tolerance, wt, skin integrity and labs 3. F/U as high risk in 2-3 days, 2/5-2/6 Expected Outcomes/Goals Expected Outcomes/Goals 1. Pt to meet at least 90% of nutritional needs via nutrition support with tolerance 2. Wt stability, skin to remain intact, labs to approach WNL.
[2018-04-06] MEDS: Docusate Sodium 100 mg/10 mL UD GT SCH ×2 (09:48→16:59)
[2018-04-06] MEDS: Calcium Carb/Vit D 500 mg/200 U Tab GT SCH ×2 (09:48→17:00)
[2018-04-06] MEDS: Ciprofloxacin 400mg Premix PB 400 MG/200 ML BAG IV SCH ×2 (09:49→20:37)
[2018-04-06] MEDS: carBAMazepine 200 mg/10 mL UDC GT SCH ×2 (09:49→21:30)
[2018-04-06] MEDS: Lactobacillus Rhamnosus GG 15 Billion CFU CAP.SPRINK PO SCH (09:49)
--- NOTE | 2018-04-06 13:00 | Infectious Disease Prog Note ---
Infectious Disease Subjective - Review of Systems Service Date: 04/06/18 Subjective: There is no new changes. The erythema and excoriation at epigastric area is improving. No fever. Infectious Disease Objective - Results Result Diagrams: 04/01/18 06:15 04/06/18 06:00 Recent Labs: Laboratory Last Values WBC 9.4 Th/cmm (4.8-10.8) 04/01/18 06:15 RBC 3.89 Mil/cmm (3.80-5.10) 04/01/18 06:15 Hgb 12.8 gm/dL (12-16) 04/01/18 06:15 Hct 38.5 % (41.0-60) L 04/01/18 06:15 MCV 98.9 fl (81-100) 04/01/18 06:15 MCH 32.9 pg (27.0-31.0) H 04/01/18 06:15 MCHC Differential 33.2 pg (28.0-36.0) 04/01/18 06:15 RDW 10.9 % (11.5-20.0) L 04/01/18 06:15 Plt Count 223 Th/cmm (150-400) 04/01/18 06:15 MPV 10.2 fl 04/01/18 06:15 Neutrophils % 62.3 % (40.0-80.0) 04/01/18 06:15 Lymphocytes % 22.6 % (20.0-50.0) 04/01/18 06:15 Monocytes % 10.7 % (2.0-10.0) H 04/01/18 06:15 Eosinophils % 3.5 % (0.0-5.0) 04/01/18 06:15 Basophils % 0.9 % (0.0-2.0) 04/01/18 06:15 ESR 41 mm/hr (0-30) H 03/22/18 04:50 Sodium 138 mEq/L (136-145) 04/06/18 06:00 Potassium 4.1 mEq/L (3.5-5.1) 04/06/18 06:00 Chloride 106 mEq/L (98-107) 04/06/18 06:00 Carbon Dioxide 22.8 mEq/L (21.0-31.0) 04/06/18 06:00 Anion Gap 13.3 (7.0-16.0) 04/06/18 06:00 BUN 18 mg/dL (7-25) 04/06/18 06:00 Creatinine 0.3 mg/dL (0.6-1.2) L 04/06/18 06:00 Est GFR ( Amer) > 60.0 ml/min (>90) 04/06/18 06:00 Est GFR (Non-Af Amer) > 60.0 ml/min 04/06/18 06:00 BUN/Creatinine Ratio 60.0 04/06/18 06:00 Glucose 126 mg/dL (70-105) H 04/06/18 06:00 POC Glucose 180 MG/DL (70 - 105) H 04/06/18 10:51 Whole Bld Lactic Acid 1.20 mmol/L (0.60-1.99) 03/20/18 19:15 Calcium 8.6 mg/dL (8.6-10.3) 04/06/18 06:00 Phosphorus 3.8 mg/dL (2.5-5.0) 04/06/18 06:00 Magnesium 1.9 mg/dL (1.9-2.7) 04/06/18 06:00 Total Bilirubin 0.4 mg/dL (0.3-1.0) 04/05/18 04:35 Direct Bilirubin 0.47 mg/dL (0.0-0.2) H 03/29/18 04:35 AST 36 U/L (13-39) 04/05/18 04:35 ALT 38 U/L (7-52) 04/05/18 04:35 Alkaline Phosphatase 85 U/L (34-104) 04/05/18 04:35 C-Reactive Protein < 0.2 mg/dL (0.0-0.9) 03/22/18 04:50 Total Protein 6.8 gm/dL (6.0-8.3) 04/05/18 04:35 Albumin 3.2 gm/dL (3.7-5.3) L 04/05/18 04:35 Globulin 3.6 gm/dL 04/05/18 04:35 Albumin/Globulin Ratio 0.9 (1.0-1.8) L 04/05/18 04:35 Prealbumin 13 mg/dL (10-36) 04/05/18 04:35 Triglycerides 109 mg/dL (<150) 04/05/18 04:35 Cholesterol 143 mg/dL (<200) 04/05/18 04:35 LDL Cholesterol Direct 87 mg/dL (75-193) 03/21/18 04:45 HDL Cholesterol 65 mg/dL (23-92) 03/21/18 04:45 TSH 1.11 uIU/ml (0.34-5.60) 03/21/18 04:45 Vancomycin Trough 14.4 ug/mL (5-10) H 03/24/18 20:28 - Physical Exam Vitals and I&O: Vital Signs Temp 98.6 F 04/06/18 11:35 Pulse 89 04/06/18 11:35 Resp 18 04/06/18 11:35 BP 144/79 04/06/18 11:35 Pulse Ox 98 04/06/18 11:35 Intake & Output 04/05/18 04/06/18 04/06/18 18:59 06:59 18:59 Intake Total 2451.6667 305 Balance 2451.6667 305 Weight (lbs) 44.906 kg 44.906 kg Intake: Intake, IV Amount 1551.6667 305 Ciprofloxacin 400mg 200 200 Premix PB 400 mg In 200 ml @ 200 mls/hr IV Q12HR [facility] Rx#:[id number] Levetiracetam 500 mg In 105 105 Sodium Chloride 0.9% 100 ml @ 400 mls/hr IV Q12H [facility] Rx#:[id number] Sodium Chloride 40 meq 1246.6667 Potassium Chloride 40 meq Calcium Gluconate 1 gm Potassium Phosphate 20 mmole In Amino Acids 4.25 % /Dext 10% 1,000 ml In Intralipids 20% 200 ml @ 75 mls/hr IV .[id number] [facility] Rx#:[id number] TPN/PPN 900 Other: # Voids 4 3 # Bowel Movements 0 Weight Source Bedscale Bedscale Active Medications: Current Medications Acetaminophen (Tylenol 650mg/20.3ml Suspension) 650 mg GT Q4HR PRN PRN Reason: Pain Or Fever >100 Stop: 05/20/18 10:46 Albuterol/Ipratropium (Duoneb Neb) 3 ml HHN [id number] PRN PRN Reason: sob Stop: 05/20/18 10:46 Last Admin: 04/05/18 19:26 Dose: 3 ml Bisacodyl (Dulcolax 10 Mg Supp) 10 mg RC Q96H PRN PRN Reason: Constipation Stop: 05/20/18 10:46 Last Admin: 03/22/18 19:42 Dose: 10 mg Calcium/Vitamin D (Oscal W/Vitamin D) 2 tab GT BID [facility] Stop: 05/31/18 08:59 Last Admin: 04/06/18 09:48 Dose: Not Given Carbamazepine (Tegretol) 400 mg GT Q12HR@0900,2100 [facility] Stop: 05/20/18 10:59 Last Admin: 04/06/18 09:49 Dose: Not Given Docusate Sodium (Colace) 200 mg GT BID [facility] Stop: 05/20/18 10:59 Last Admin: 04/06/18 09:48 Dose: Not Given Hydralazine HCl (Apresoline 20 Mg/Ml) 20 mg IV Q6HR PRN PRN Reason: SBP>160 Stop: 05/23/18 13:11 Levetiracetam 500 mg/ Sodium (Chloride) 105 mls @ 400 mls/hr IV Q12H [facility] Stop: 05/21/18 22:59 Last Admin: 04/06/18 10:57 Dose: 400 mls/hr Ciprofloxacin (Cipro 400mg Premix Pb) 400 mg in 200 mls @ 200 mls/hr IV Q12HR [facility] Stop: 06/01/18 20:59 Last Admin: 04/06/18 09:49 Dose: 200 mls/hr Sodium Chloride 40 meq/Potassium Chloride 40 meq/Calcium Gluconate 1 gm/ Potassium Phosphate 20 mmole/Amino Acids/ Fat Emulsion Intravenous 1,246.6667 mls @ 75 mls/hr IV .[id number] [facility] Stop: 06/02/18 15:59 Last Admin: 04/05/18 16:38 Dose: 75 mls/hr Insulin Human Lispro (Humalog Insulin Sliding Scale) 0 units SUBQ Q6H [facility]; Protocol Stop: 05/22/18 15:59 Last Admin: 04/06/18 10:59 Dose: 2 units Lactobacillus Rhamnosus (Culturelle 15b) 1 each PO DAILY [facility] Stop: 05/25/18 08:59 Last Admin: 04/06/18 09:49 Dose: Not Given Lactulose (Cephulac) 10 gm GT DAILY PRN PRN Reason: Constipation Last Admin: 03/22/18 13:47 Dose: 10 gm Magnesium Hydroxide (Milk Of Magnesia) 30 ml GT Q72H PRN PRN Reason: Constipation Stop: 05/20/18 10:48 Metoprolol Tartrate (Lopressor) 12.5 mg GT QPM [facility] Stop: 05/20/18 16:59 Last Admin: 04/05/18 17:56 Dose: Not Given Miscellaneous (Probiotic Screen) 1 ea PRN PRN PRN Reason: PROTOCOL Stop: 05/24/18 17:10 Miscellaneous (Ppn Per Pharmacy) 1 [facility] PRN PRN PRN Reason: PROTOCOL Stop: 06/01/18 15:22 Petrolatum (Zinc Oxide) 1 appl TP HS [facility] Stop: 05/21/18 20:59 Last Admin: 04/05/18 20:58 Dose: 1 appl Sodium Phosphate (Fleet Enema) 135 ml RC Q96H PRN PRN Reason: IF DULCOLAX INEFFECTIVE Stop: 05/20/18 10:46 General: no acute distress, cachectic HEENT: atraumatic, normocephalic, PERRLA, EOMI, moist mucous membrane Neck: supple, no thyromegaly Cardiovascular: S1S2, regular Lungs: clear to auscultation bilaterally, clear to percussion Abdomen: soft, other (g tube site has very minimal discharge, intensity of redness is improving.), no tender, no distended Extremities: no cyanosis, no clubbing, no edema Neurological: awake, alert, oriented Skin: intact - Procedures Procedures: Procedures Procedure Code Date ASPIR CURETT UTERUS NEC 69.59 06/12/11 CHANGE FEEDING DEVICE IN UP INTEST TRACT, RIBBON BLOCKER APPROACH [id number] 01/27/16 CHANGE GASTROSTOMY TUBE 30852 05/21/15 DILATION AND CURETTAGE 48953 06/12/11 EGD BIOPSY SINGLE/MULTIPLE 88148 07/15/16 EXCISION OF STOMACH, ENDO, DIAGN [id number] 07/15/16 INSERTION OF FEEDING DEVICE INTO STOMACH, ENDO [id number] 07/15/16 LAPARO PROC ABDM/PER/OMENT 38092 06/14/14 LAPAROSCOP APPENDECTOMY 47.01 07/29/13 LAPAROSCOP LYSIS-PERITONEAL ADHES 54.51 07/29/13 LAPAROSCOPY APPENDECTOMY 66446 07/29/13 REPLACE GASTROSTOMY TUBE 97.02 07/26/14 Infectious Disease Assmt/Plan - Assessment Assessment: 1. Abdominal wall cellulitis, excoriation. 2. Malposition of NGT. 3. Hepatitis C. 4. Hepatitis B. 5. G-tube malfunction. Currently receiving, TPN did 6. Seizure disorder. - Plan Plan: Continue symptomatic treatment. Wound care is the mainstay of the treatment. Continue ciprofloxacin for few more days. Nutritional Asmnt/Malnutr-PDOC - Dietary Evaluation Malnutrition Findings (Please click <Entered> for more info): Nutritional Asmnt/Malnutrition Start: 03/21/18 13: 29 Text: Status: Complete Freq: Protocol: Document 03/21/18 13:29 LCHENG (Rec: 03/21/18 13:45 LCHENG [email or web address]) Nutritional Asmnt/Malnutrition Patient General Information Nutritional Screening High Risk Consult Diagnosis displacement of Gtube, Gtube site cellulitis Pertinent Medical Hx/Surgical Hx HTN, PUD?GERD, seizures, hepatitis B and C, developmentally disabled, quadriplegic Subjective Information Consult reiceved for shayna score 11. Pt seen in bed, non verbal noted. Per nurse pt is tolerating current tube feeding. CALEB Rdz asked about TF rate since pt was receiving Jevity 1.5 at [facility] and our hospital only carries Jevity 1.2. Current Diet Order/ Nutrition Support Jevity 1.2 at 40ml/hr x 20hr, providing 960kcal and 44g protein Pertinent Medications oscal w/vit D, colace, nacl 0. 9%, vancomycin Pertinent Labs 2/4 Cl 108, Cr 0.4 2/3 Cr 0.4, glucose 109, alb 3 .6 Nutritional Hx/Data Height 1.6 m Height (Calculated Centimeters) 160.0 Current Weight (lbs) 45.359 kg Weight (Calculated Kilograms) 45.4 Weight (Calculated Grams) 27850.2 [place] Body Weight 115 Body Mass Index (BMI) 17.6 Weight Status Underweight GI Symptoms GI Symptoms None Last BM not indicated Usual diet at home Jevity 1.5 at 40ml/hr x 20hr at [facility] Skin Integrity/Comment: cellulitis reddened to Gtube site shayna 11 Estimated Nutritional Goals Calories/Kcals/Kg 25-30 IBW 52kg Kcals Calculated 4936-9308 Protein g/k-1.2 Protein Calculated 52-62 Fluid: ml 1300-1560ml (1ml/kcal) Nutritional Problem 1. Problem Problem inadequate intake from enteral feeding Etiology current TF regimen not meeting nutritional needs Signs/Symptoms: current TF providing 960kcal and 44g protein Malnutrition Related to Morbid Obesity Malnutrition related to morbid obesity No Intervention/Recommendation Comments 1. Recommend to increase TF rate to Jevity 1.2 at 55ml/hr x 20hr. It provides 1320kcal, 61g protein, 888ml free water, meeting 100% of nutritional needs. RN Kajal notified. 2. Monitor TF rate, tolerance, wt, skin integrity and labs 3. F/U as high risk in 2-3 days, 2/5-2/6 Expected Outcomes/Goals Expected Outcomes/Goals 1. Pt to meet at least 90% of nutritional needs via nutrition support with tolerance 2. Wt stability, skin to remain intact, labs to approach WNL.
[2018-04-06] MEDS: TPN 8.5%-70% CUSTOM IV SCH (16:07)
--- NOTE | 2018-04-06 22:34 | GI Progress Note ---
Subjective - Review of Systems Service Date: 04/06/18 Events since last encounter: No events, Objective - Results Result Diagrams: 04/01/18 06:15 04/06/18 06:00 Recent Labs: Laboratory Last Values WBC 9.4 Th/cmm (4.8-10.8) 04/01/18 06:15 RBC 3.89 Mil/cmm (3.80-5.10) 04/01/18 06:15 Hgb 12.8 gm/dL (12-16) 04/01/18 06:15 Hct 38.5 % (41.0-60) L 04/01/18 06:15 MCV 98.9 fl (81-100) 04/01/18 06:15 MCH 32.9 pg (27.0-31.0) H 04/01/18 06:15 MCHC Differential 33.2 pg (28.0-36.0) 04/01/18 06:15 RDW 10.9 % (11.5-20.0) L 04/01/18 06:15 Plt Count 223 Th/cmm (150-400) 04/01/18 06:15 MPV 10.2 fl 04/01/18 06:15 Neutrophils % 62.3 % (40.0-80.0) 04/01/18 06:15 Lymphocytes % 22.6 % (20.0-50.0) 04/01/18 06:15 Monocytes % 10.7 % (2.0-10.0) H 04/01/18 06:15 Eosinophils % 3.5 % (0.0-5.0) 04/01/18 06:15 Basophils % 0.9 % (0.0-2.0) 04/01/18 06:15 ESR 41 mm/hr (0-30) H 03/22/18 04:50 Sodium 138 mEq/L (136-145) 04/06/18 06:00 Potassium 4.1 mEq/L (3.5-5.1) 04/06/18 06:00 Chloride 106 mEq/L (98-107) 04/06/18 06:00 Carbon Dioxide 22.8 mEq/L (21.0-31.0) 04/06/18 06:00 Anion Gap 13.3 (7.0-16.0) 04/06/18 06:00 BUN 18 mg/dL (7-25) 04/06/18 06:00 Creatinine 0.3 mg/dL (0.6-1.2) L 04/06/18 06:00 Est GFR ( Amer) > 60.0 ml/min (>90) 04/06/18 06:00 Est GFR (Non-Af Amer) > 60.0 ml/min 04/06/18 06:00 BUN/Creatinine Ratio 60.0 04/06/18 06:00 Glucose 126 mg/dL (70-105) H 04/06/18 06:00 POC Glucose 113 MG/DL (70 - 105) H 04/06/18 16:23 Whole Bld Lactic Acid 1.20 mmol/L (0.60-1.99) 03/20/18 19:15 Calcium 8.6 mg/dL (8.6-10.3) 04/06/18 06:00 Phosphorus 3.8 mg/dL (2.5-5.0) 04/06/18 06:00 Magnesium 1.9 mg/dL (1.9-2.7) 04/06/18 06:00 Total Bilirubin 0.4 mg/dL (0.3-1.0) 04/05/18 04:35 Direct Bilirubin 0.47 mg/dL (0.0-0.2) H 03/29/18 04:35 AST 36 U/L (13-39) 04/05/18 04:35 ALT 38 U/L (7-52) 04/05/18 04:35 Alkaline Phosphatase 85 U/L (34-104) 04/05/18 04:35 C-Reactive Protein < 0.2 mg/dL (0.0-0.9) 03/22/18 04:50 Total Protein 6.8 gm/dL (6.0-8.3) 04/05/18 04:35 Albumin 3.2 gm/dL (3.7-5.3) L 04/05/18 04:35 Globulin 3.6 gm/dL 04/05/18 04:35 Albumin/Globulin Ratio 0.9 (1.0-1.8) L 04/05/18 04:35 Prealbumin 13 mg/dL (10-36) 04/05/18 04:35 Triglycerides 109 mg/dL (<150) 04/05/18 04:35 Cholesterol 143 mg/dL (<200) 04/05/18 04:35 LDL Cholesterol Direct 87 mg/dL (75-193) 03/21/18 04:45 HDL Cholesterol 65 mg/dL (23-92) 03/21/18 04:45 TSH 1.11 uIU/ml (0.34-5.60) 03/21/18 04:45 Vancomycin Trough 14.4 ug/mL (5-10) H 03/24/18 20:28 - Physical Exam Vitals and I&O: Vital Signs Temp 98.1 F 04/06/18 20:00 Pulse 90 04/06/18 20:00 Resp 18 04/06/18 20:00 BP 131/80 04/06/18 20:00 Pulse Ox 96 04/06/18 20:00 Intake & Output 04/06/18 04/06/18 04/07/18 06:59 18:59 06:59 Intake Total 305 200 Balance 305 200 Weight (lbs) 44.906 kg 44.906 kg Intake: Intake, IV Amount 305 200 Ciprofloxacin 400mg 200 200 Premix PB 400 mg In 200 ml @ 200 mls/hr IV Q12HR [facility] Rx#:[id number] Levetiracetam 500 mg In 105 Sodium Chloride 0.9% 100 ml @ 400 mls/hr IV Q12H [facility] Rx#:[id number] Other: # Voids 3 3 # Bowel Movements 1 Weight Source Bedscale Bedscale Active Medications: Current Medications Acetaminophen (Tylenol 650mg/20.3ml Suspension) 650 mg GT Q4HR PRN PRN Reason: Pain Or Fever >100 Stop: 05/20/18 10:46 Albuterol/Ipratropium (Duoneb Neb) 3 ml HHN [id number] PRN PRN Reason: sob Stop: 05/20/18 10:46 Last Admin: 04/05/18 19:26 Dose: 3 ml Bisacodyl (Dulcolax 10 Mg Supp) 10 mg RC Q96H PRN PRN Reason: Constipation Stop: 05/20/18 10:46 Last Admin: 03/22/18 19:42 Dose: 10 mg Calcium/Vitamin D (Oscal W/Vitamin D) 2 tab GT BID [facility] Stop: 05/31/18 08:59 Last Admin: 04/06/18 17:00 Dose: Not Given Carbamazepine (Tegretol) 400 mg GT Q12HR@0900,2100 [facility] Stop: 05/20/18 10:59 Last Admin: 04/06/18 21:30 Dose: Not Given Docusate Sodium (Colace) 200 mg GT BID [facility] Stop: 05/20/18 10:59 Last Admin: 04/06/18 16:59 Dose: Not Given Hydralazine HCl (Apresoline 20 Mg/Ml) 20 mg IV Q6HR PRN PRN Reason: SBP>160 Stop: 05/23/18 13:11 Levetiracetam 500 mg/ Sodium (Chloride) 105 mls @ 400 mls/hr IV Q12H [facility] Stop: 05/21/18 22:59 Last Admin: 04/06/18 10:57 Dose: 400 mls/hr Ciprofloxacin (Cipro 400mg Premix Pb) 400 mg in 200 mls @ 200 mls/hr IV Q12HR [facility] Stop: 06/01/18 20:59 Last Admin: 04/06/18 20:37 Dose: 200 mls/hr Multivitamins/Minerals 10 ml/Chromium/Copper/Manganese/Zinc 1 ml/ Sodium Chloride 45 meq/Sodium Phosphate 33 mmole/Magnesium Sulfate 12 meq/Potassium Acetate 39 meq/Calcium Gluconate 2 gm/Potassium Chloride 40 meq/Dextrose/ Amino Acids/Electrolytes/ Fat Emulsion Intravenous/ Sterile Water 1,800 mls @ 75 mls/ hr IV .Q24H [facility] Stop: 05/05/18 14:59 Last Admin: 04/06/18 16:07 Dose: 75 mls/hr Insulin Human Lispro (Humalog Insulin Sliding Scale) 0 units SUBQ Q6H [facility]; Protocol Stop: 05/22/18 15:59 Last Admin: 04/06/18 17:02 Dose: Not Given Lactobacillus Rhamnosus (Culturelle 15b) 1 each PO DAILY [facility] Stop: 05/25/18 08:59 Last Admin: 04/06/18 09:49 Dose: Not Given Lactulose (Cephulac) 10 gm GT DAILY PRN PRN Reason: Constipation Last Admin: 03/22/18 13:47 Dose: 10 gm Magnesium Hydroxide (Milk Of Magnesia) 30 ml GT Q72H PRN PRN Reason: Constipation Stop: 05/20/18 10:48 Metoprolol Tartrate (Lopressor) 12.5 mg GT QPM [facility] Stop: 05/20/18 16:59 Last Admin: 04/06/18 17:00 Dose: Not Given Miscellaneous (Probiotic Screen) 1 ea PRN PRN PRN Reason: PROTOCOL Stop: 05/24/18 17:10 Miscellaneous (Ppn Per Pharmacy) 1 ea PRN PRN PRN Reason: PROTOCOL Stop: 06/01/18 15:22 Petrolatum (Zinc Oxide) 1 appl TP HS [facility] Stop: 05/21/18 20:59 Last Admin: 04/05/18 20:58 Dose: 1 appl Sodium Phosphate (Fleet Enema) 135 ml RC Q96H PRN PRN Reason: IF DULCOLAX INEFFECTIVE Stop: 05/20/18 10:46 General: Alert HEENT: Atraumatic Neck: Supple Cardiovascular: Regular rate Lungs: Clear to auscultation Abdomen: Bowel sounds, Soft, Other (GC fistula with erythema, bandaged. Some purulent drainage), no Tender, no Distended, no Rebound, no Mass, no Guarding Extremities: no Edema Neurological: Sensation intact Skin: Rash Psych/Mental Status: Mood NL - Procedures Procedures: Procedures Procedure Code Date ASPIR CURETT UTERUS NEC 69.59 06/12/11 CHANGE FEEDING DEVICE IN UP INTEST TRACT, NEGATIVE NOTCHER APPROACH [id number] 01/27/16 CHANGE GASTROSTOMY TUBE 39895 05/21/15 DILATION AND CURETTAGE 40386 06/12/11 EGD BIOPSY SINGLE/MULTIPLE 18064 07/15/16 EXCISION OF STOMACH, ENDO, DIAGN [id number] 07/15/16 INSERTION OF FEEDING DEVICE INTO STOMACH, ENDO [id number] 07/15/16 LAP[facility]O PROC ABDM/PER/OMENT 01639 07/29/13 LAPAROSCOP APPENDECTOMY 47.01 07/29/13 LAPAROSCOP LYSIS-PERITONEAL ADHES 54.51 07/29/13 LAPAROSCOPY APPENDECTOMY 56335 07/29/13 REPLACE GASTROSTOMY TUBE 97.02 07/26/14 Assessment/Plan - Assessment Assessment: Assessment: # G tube site cellulitis # Dysphagia # Developmental delay As of 03/25, the site looked worse thus the G tube was pulled. Will need to wait for the area to heal prior to inserting a new one On 03/30, there is still erythema and some leakage from the area. Unclear if proper wound care is being applied to this area. On 04/01, the site looks more inflamed. Does not appear to be leakage from NG feeding, but infection on the skin is not improving. on 04/02 - NG tube was pulled bc of tip extruding out of gc fistula site Plan: - appreciate ID consult to help with unresolving cellulitis. - site has not healed or closed on its own; Discussed case with Dr Molina: most likely Plan will be likely fistula closure and surgical PEG -Discussed other option of Over the scope clip closure, but likely this will increase hospital LOS and take 1-2 weeks before safe to insert new PEG tube but certainly an option, but not the best option in this case -wound care -Will monitor fistula site again, if still significant erythema then placing another G tube through this site is a nidus for ongoing infection ; discussed with Dr Luevano
[2018-04-06] MEDS: Zinc Oxide Ointment 60 gm TP SCH (22:43)
--- NOTE | 2018-04-07 02:33 | Progress Notes ---
DATE: 04/06/2018 TIME: 9:55 p.m. OBJECTIVE: VITAL SIGNS: The patient is afebrile. Vital signs otherwise are stable. GENERAL: The patient is resting in bed comfortably, in no acute distress. CHEST: Clear to auscultation bilaterally. HEART: Regular rhythm and rate. HEENT AND NECK: Within normal limits. ABDOMEN: Soft, nontender, nondistended. The patient has a G-tube site with cellulitis around the site and excoriated skin and subcutaneous tissue. NEUROVASCULAR: Severe contractures. LABORATORY DATA: The Chem-7 is otherwise unremarkable. White blood cell count not checked since 04/01/2018. The patient is on ciprofloxacin, lactulose, and milk of magnesia. IMPRESSION AND PLAN: I have spoken to Dr. Lees regarding the option of replacing the G-tube with the larger G-tube and with the large of a 20-30 mL balloon, but Dr. Lees was not optimistic about this approach. We both decided that probably the best option for this patient and most definitive treatment for this is to do mini laparotomy, takedown of the gastrocutaneous fistula, and new gastrostomy tube placement. If the conservator agrees to this procedure, we will plan the procedure, most likely on Wednesday morning. We will try to schedule it with OR team at that time. The risks include bleeding, infection, possibility of leak from the G-tube site, bowel injury, wound infection, dehiscence of the hernia formation. JOB# [id number]
[2018-04-07] MEDS: INSULIN LISPRO SLIDING SCALE 100 UNITS/ML UNIT SUBQ SCH ×4 (04:55→22:40)
[2018-04-07] MEDS: Ciprofloxacin 400mg Premix PB 400 MG/200 ML BAG IV SCH ×2 (08:18→20:24)
[2018-04-07] MEDS: carBAMazepine 200 mg/10 mL UDC GT SCH ×2 (08:39→22:45)
[2018-04-07] MEDS: Lactobacillus Rhamnosus GG 15 Billion CFU CAP.SPRINK PO SCH (08:39)
[2018-04-07] MEDS: Docusate Sodium 100 mg/10 mL UD GT SCH ×2 (08:39→19:19)
[2018-04-07] MEDS: Calcium Carb/Vit D 500 mg/200 U Tab GT SCH ×2 (08:39→19:19)
[2018-04-07 08:43] LABS: ANION GAP 11.8 (7.0-16.0); BUN - UREA NITROGEN 15 mg/dL (7-25); CALCIUM SERUM 8.5 mg/dL (8.6-10.3); CARBON DIOXIDE 24.3 mEq/L (21.0-31.0); CHLORIDE 107 mEq/L (98-107); CREATININE - SERUM 0.3 mg/dL (0.6-1.2); GFR AFRICAN-AMERICAN > 60.0 ml/min (>90); GFR NON AFRICAN-AMERICAN > 60.0 ml/min; GLUCOSE 145 mg/dL (70-105); MAGNESIUM 1.9 mg/dL (1.9-2.7); PHOSPHOROUS 3.4 mg/dL (2.5-5.0); POTASSIUM SERUM 4.1 mEq/L (3.5-5.1); SODIUM SERUM 139 mEq/L (136-145)
--- NOTE | 2018-04-07 09:54 | Internal Medicine Prog Note ---
Internal Medicine Subjective - Subjective Service Date: 04/07/18 (SURGICAL/GI PLAN NOTED-MINI LAP WITH TAKE DOWN OF GC FISTULA WITH NEW GT PLACEMENT. SCHEDULED TENTATIVELY FOR THIS COMING WEDNESDAY.) Patient is:: awake, non-verbal Per staff patient has:: no adverse event Internal Medicine Objective - Results Result Diagrams: 04/01/18 06:15 04/07/18 05:40 Recent Labs: Laboratory Last Values WBC 9.4 Th/cmm (4.8-10.8) 04/01/18 06:15 RBC 3.89 Mil/cmm (3.80-5.10) 04/01/18 06:15 Hgb 12.8 gm/dL (12-16) 04/01/18 06:15 Hct 38.5 % (41.0-60) L 04/01/18 06:15 MCV 98.9 fl (81-100) 04/01/18 06:15 MCH 32.9 pg (27.0-31.0) H 04/01/18 06:15 MCHC Differential 33.2 pg (28.0-36.0) 04/01/18 06:15 RDW 10.9 % (11.5-20.0) L 04/01/18 06:15 Plt Count 223 Th/cmm (150-400) 04/01/18 06:15 MPV 10.2 fl 04/01/18 06:15 Neutrophils % 62.3 % (40.0-80.0) 04/01/18 06:15 Lymphocytes % 22.6 % (20.0-50.0) 04/01/18 06:15 Monocytes % 10.7 % (2.0-10.0) H 04/01/18 06:15 Eosinophils % 3.5 % (0.0-5.0) 04/01/18 06:15 Basophils % 0.9 % (0.0-2.0) 04/01/18 06:15 ESR 41 mm/hr (0-30) H 03/22/18 04:50 Sodium 139 mEq/L (136-145) 04/07/18 05:40 Potassium 4.1 mEq/L (3.5-5.1) 04/07/18 05:40 Chloride 107 mEq/L (98-107) 04/07/18 05:40 Carbon Dioxide 24.3 mEq/L (21.0-31.0) 04/07/18 05:40 Anion Gap 11.8 (7.0-16.0) 04/07/18 05:40 BUN 15 mg/dL (7-25) 04/07/18 05:40 Creatinine 0.3 mg/dL (0.6-1.2) L 04/07/18 05:40 Est GFR ( Amer) > 60.0 ml/min (>90) 04/07/18 05:40 Est GFR (Non-Af Amer) > 60.0 ml/min 04/07/18 05:40 BUN/Creatinine Ratio 50.0 04/07/18 05:40 Glucose 145 mg/dL (70-105) H 04/07/18 05:40 POC Glucose 142 MG/DL (70 - 105) H 04/07/18 09:24 Whole Bld Lactic Acid 1.20 mmol/L (0.60-1.99) 03/20/18 19:15 Calcium 8.5 mg/dL (8.6-10.3) L 04/07/18 05:40 Phosphorus 3.4 mg/dL (2.5-5.0) 04/07/18 05:40 Magnesium 1.9 mg/dL (1.9-2.7) 04/07/18 05:40 Total Bilirubin 0.4 mg/dL (0.3-1.0) 04/05/18 04:35 Direct Bilirubin 0.47 mg/dL (0.0-0.2) H 03/29/18 04:35 AST 36 U/L (13-39) 04/05/18 04:35 ALT 38 U/L (7-52) 04/05/18 04:35 Alkaline Phosphatase 85 U/L (34-104) 04/05/18 04:35 C-Reactive Protein < 0.2 mg/dL (0.0-0.9) 03/22/18 04:50 Total Protein 6.8 gm/dL (6.0-8.3) 04/05/18 04:35 Albumin 3.2 gm/dL (3.7-5.3) L 04/05/18 04:35 Globulin 3.6 gm/dL 04/05/18 04:35 Albumin/Globulin Ratio 0.9 (1.0-1.8) L 04/05/18 04:35 Prealbumin 13 mg/dL (10-36) 04/05/18 04:35 Triglycerides 109 mg/dL (<150) 04/05/18 04:35 Cholesterol 143 mg/dL (<200) 04/05/18 04:35 LDL Cholesterol Direct 87 mg/dL (75-193) 03/21/18 04:45 HDL Cholesterol 65 mg/dL (23-92) 03/21/18 04:45 TSH 1.11 uIU/ml (0.34-5.60) 03/21/18 04:45 Vancomycin Trough 14.4 ug/mL (5-10) H 03/24/18 20:28 - Physical Exam Vitals and I&O: Vital Signs Temp 97.1 F 04/07/18 08:00 Pulse 87 04/07/18 08:00 Resp 18 04/07/18 08:00 BP 128/76 04/07/18 08:00 Pulse Ox 97 04/07/18 08:00 Intake & Output 04/06/18 04/07/18 04/07/18 18:59 06:59 18:59 Intake Total 305 200 Balance 305 200 Weight (lbs) 44.906 kg 44.906 kg Intake: Intake, IV Amount 305 200 Ciprofloxacin 400mg 200 200 Premix PB 400 mg In 200 ml @ 200 mls/hr IV Q12HR [facility] Rx#:[id number] Levetiracetam 500 mg In 105 Sodium Chloride 0.9% 100 ml @ 400 mls/hr IV Q12H [facility] Rx#:[id number] Other: # Voids 3 2 # Bowel Movements 1 0 Weight Source Bedscale Bedscale Active Medications: Current Medications Acetaminophen (Tylenol 650mg/20.3ml Suspension) 650 mg GT Q4HR PRN PRN Reason: Pain Or Fever >100 Stop: 05/20/18 10:46 Albuterol/Ipratropium (Duoneb Neb) 3 ml HHN [id number] PRN PRN Reason: sob Stop: 05/20/18 10:46 Last Admin: 04/05/18 19:26 Dose: 3 ml Bisacodyl (Dulcolax 10 Mg Supp) 10 mg RC Q96H PRN PRN Reason: Constipation Stop: 05/20/18 10:46 Last Admin: 02/05/19 19:42 Dose: 10 mg Calcium/Vitamin D (Oscal W/Vitamin D) 2 tab GT BID [facility] Stop: 05/31/18 08:59 Last Admin: 04/07/18 08:39 Dose: Not Given Carbamazepine (Tegretol) 400 mg GT Q12HR@0900,2100 [facility] Stop: 05/20/18 10:59 Last Admin: 04/07/18 08:39 Dose: Not Given Docusate Sodium (Colace) 200 mg GT BID [facility] Stop: 05/20/18 10:59 Last Admin: 04/07/18 08:39 Dose: Not Given Hydralazine HCl (Apresoline 20 Mg/Ml) 20 mg IV Q6HR PRN PRN Reason: SBP>160 Stop: 05/23/18 13:11 Levetiracetam 500 mg/ Sodium (Chloride) 105 mls @ 400 mls/hr IV Q12H [facility] Stop: 05/21/18 22:59 Last Admin: 04/06/18 22:42 Dose: 400 mls/hr Ciprofloxacin (Cipro 400mg Premix Pb) 400 mg in 200 mls @ 200 mls/hr IV Q12HR [facility] Stop: 06/01/18 20:59 Last Admin: 04/07/18 08:18 Dose: 200 mls/hr Multivitamins/Minerals 10 ml/Chromium/Copper/Manganese/Zinc 1 ml/ Sodium Chloride 45 meq/Sodium Phosphate 33 mmole/Magnesium Sulfate 12 meq/Potassium Acetate 39 meq/Calcium Gluconate 2 gm/Potassium Chloride 40 meq/Dextrose/ Amino Acids/Electrolytes/ Fat Emulsion Intravenous/ Sterile Water 1,800 mls @ 75 mls/ hr IV .Q24H [facility] Stop: 05/05/18 14:59 Last Admin: 04/06/18 16:07 Dose: 75 mls/hr Insulin Human Lispro (Humalog Insulin Sliding Scale) 0 units SUBQ Q6H [facility]; Protocol Stop: 05/22/18 15:59 Last Admin: 04/07/18 09:27 Dose: Not Given Lactobacillus Rhamnosus (Culturelle 15b) 1 each PO DAILY [facility] Stop: 05/25/18 08:59 Last Admin: 04/07/18 08:39 Dose: Not Given Lactulose (Cephulac) 10 gm GT DAILY PRN PRN Reason: Constipation Last Admin: 03/22/18 13:47 Dose: 10 gm Magnesium Hydroxide (Milk Of Magnesia) 30 ml GT Q72H PRN PRN Reason: Constipation Stop: 05/20/18 10:48 Metoprolol Tartrate (Lopressor) 12.5 mg GT QPM [facility] Stop: 05/20/18 16:59 Last Admin: 04/06/18 17:00 Dose: Not Given Miscellaneous (Probiotic Screen) 1 ea PRN PRN PRN Reason: PROTOCOL Stop: 05/24/18 17:10 Miscellaneous (Ppn Per Pharmacy) 1 ea PRN PRN PRN Reason: PROTOCOL Stop: 06/01/18 15:22 Petrolatum (Zinc Oxide) 1 appl TP HS [facility] Stop: 05/21/18 20:59 Last Admin: 04/06/18 22:43 Dose: 1 appl Sodium Phosphate (Fleet Enema) 135 ml RC Q96H PRN PRN Reason: IF DULCOLAX INEFFECTIVE Stop: 05/20/18 10:46 General: thin, NAD HEENT: NC/AT, PERRLA, EOMI Neck: No JVD, no No thyromegaly Lungs: CTAB Cardiovascular: RRR Abdomen: soft, non-tender, +GT - redness, +GT - discharge, other (GT SITE WITH IMPROVED ERYTHEMA) Extremities: clear Neurological: no change, spastic - Procedures Procedures: Procedures Procedure Code Date ASPIR CURETT UTERUS NEC 69.59 06/12/11 CHANGE FEEDING DEVICE IN UP INTEST TRACT, RETIREMENT SALES CONSULTANT APPROACH [id number] 01/27/16 CHANGE GASTROSTOMY TUBE 31176 05/21/15 DILATION AND CURETTAGE 92455 06/12/11 EGD BIOPSY SINGLE/MULTIPLE 89174 07/15/16 EXCISION OF STOMACH, ENDO, DIAGN [id number] 07/15/16 INSERTION OF FEEDING DEVICE INTO STOMACH, ENDO [id number] 07/15/16 [facility] PROC ABDM/PER/OMENT 41104 07/29/13 LAPAROSCOP APPENDECTOMY 47.01 07/29/13 LAPAROSCOP LYSIS-PERITONEAL ADHES 54.51 07/29/13 LAPAROSCOPY APPENDECTOMY 63619 07/29/13 REPLACE GASTROSTOMY TUBE 97.02 07/26/14 Internal Medicine Assmt/Plan - Assessment Assessment: 1. GTUBE MALFUNCTION WITH LEAKAGE 2. GT SITE CELLULITIS/DRAINAGE (GC FISTULA) 3. COMPLEX WOUND INFX-PSEUDOMONAS AERUGINOSA 3. HISTORY OF DYSPHAGIA-PEG PLACEMENT 4. HX OF CONSTIPATION 5. HYPONATREMIA--RESOLVED 6. HX OF SEIZURE DISORDER-STABLE 7. HX OF INTELLECTUAL DISABILITY 8. S/P PICC LINE PLACEMENT 9. ELECTROLYTE IMBALANCE-STABLE/MONITOR. - Plan Plan: CONT WITH CURRENT TX PLAN AND MGT CONT WITH TPN, CONT TO HOLD GT FEEDS FOR NOW CONT WITH IV ABXS (CIPRO), AND LOCAL WOUND CARE MONITOR LYTES. MINI LAP WITH TAKE DOWN OF GC FISTULA AND REPLACEMENT OF GT (CONSERVATOR CONSENTED) FOR WEDNESDAY CARDIOLOGY EVAL FOR PRE-OP CLEARANCE GI/ID FU Nutritional Asmnt/Malnutr-PDOC - Dietary Evaluation Malnutrition Findings (Please click <Entered> for more info): Nutritional Asmnt/Malnutrition Start: 03/21/18 13: 29 Text: Status: Complete Freq: Protocol: Document 03/21/18 13:29 LCHENG (Rec: 03/21/18 13:45 LCHENG [email or web address]) Nutritional Asmnt/Malnutrition Patient General Information Nutritional Screening High Risk Consult Diagnosis displacement of Gtube, Gtube site cellulitis Pertinent Medical Hx/Surgical Hx HTN, PUD?GERD, seizures, hepatitis B and C, developmentally disabled, quadriplegic Subjective Information Consult reiceved for shayna score 11. Pt seen in bed, non verbal noted. Per nurse pt is tolerating current tube feeding. CALEB Rdz asked about TF rate since pt was receiving Jevity 1.5 at [facility] and our hospital only carries Jevity 1.2. Current Diet Order/ Nutrition Support Jevity 1.2 at 40ml/hr x 20hr, providing 960kcal and 44g protein Pertinent Medications oscal w/vit D, colace, nacl 0. 9%, vancomycin Pertinent Labs 2/4 Cl 108, Cr 0.4 2/3 Cr 0.4, glucose 109, alb 3 .6 Nutritional Hx/Data Height 1.6 m Height (Calculated Centimeters) 160.0 Current Weight (lbs) 45.359 kg Weight (Calculated Kilograms) 45.4 Weight (Calculated Grams) 62854.2 [place] Body Weight 115 Body Mass Index (BMI) 17.6 Weight Status Underweight GI Symptoms GI Symptoms None Last BM not indicated Usual diet at home Jevity 1.5 at 40ml/hr x 20hr at [facility] Skin Integrity/Comment: cellulitis reddened to Gtube site shayna 11 Estimated Nutritional Goals Calories/Kcals/Kg 25-30 IBW 52kg Kcals Calculated 4843-4015 Protein g/k-1.2 Protein Calculated 52-62 Fluid: ml 1300-1560ml (1ml/kcal) Nutritional Problem 1. Problem Problem inadequate intake from enteral feeding Etiology current TF regimen not meeting nutritional needs Signs/Symptoms: current TF providing 960kcal and 44g protein Malnutrition Related to Morbid Obesity Malnutrition related to morbid obesity No Intervention/Recommendation Comments 1. Recommend to increase TF rate to Jevity 1.2 at 55ml/hr x 20hr. It provides 1320kcal, 61g protein, 888ml free water, meeting 100% of nutritional needs. CALEB Rdz notified. 2. Monitor TF rate, tolerance, wt, skin integrity and labs 3. F/U as high risk in 2-3 days, 2/5-2/6 Expected Outcomes/Goals Expected Outcomes/Goals 1. Pt to meet at least 90% of nutritional needs via nutrition support with tolerance 2. Wt stability, skin to remain intact, labs to approach WNL.
--- NOTE | 2018-04-07 14:47 | Consultation ---
DATE OF CONSULTATION: 04/07/[address] Loaiza. HISTORY AND PHYSICAL: This 62-year-old female patient who is mentally challenged was brought due to G-tube cellulitis with Pseudomonas aeruginosa. The patient had a fistula. The patient at the present time is having a G-tube malfunction. The patient is to have mini surgery for correction of the fistula and insertion of a new G-tube. PAST MEDICAL HISTORY: G-tube malfunction with cellulitis, chronic constipation, protein-calorie malnutrition, contracture of both upper and lower extremities, seizure disorder, dementia, functional quadriplegia, mentally challenged, cholelithiasis and osteoporosis. FAMILY HISTORY: Unremarkable. SOCIAL HISTORY: No history of smoking or alcohol abuse. ALLERGIES: No known allergies. PHYSICAL EXAMINATION: VITAL SIGNS: Blood pressure 113/70, pulse 70, respirations 20, temperature 98. LUNGS: Clear. HEART: Regular rhythm, S1, S2, S3, S4. ABDOMEN: Soft. The patient has pseudomonas cellulitis of the G-tube site. EXTREMITIES: The patient has contracture of both upper and lower extremities. CLINICAL IMPRESSION: 1. G-tube cellulitis with malfunction, Pseudomonas aeruginosa. 2. Hyponatremia. 3. Chronic constipation. 4. Protein-calorie malnutrition. 5. Contracture of both upper and lower extremities. 6. Seizure disorder. 7. Dementia. 8. Functional quadriplegia. 9. Mentally challenged. 10. Cholelithiasis. 11. Osteoporosis. PLAN: The patient is cleared for surgery for G-tube placement. JOB# [id number]
--- NOTE | 2018-04-07 15:07 | Infectious Disease Prog Note ---
Infectious Disease Subjective - Review of Systems Service Date: 04/07/18 Subjective: There is no new changes. The erythema and excoriation at epigastric area is improving. No fever. Infectious Disease Objective - Results Result Diagrams: 04/01/18 06:15 04/07/18 05:40 Recent Labs: Laboratory Last Values WBC 9.4 Th/cmm (4.8-10.8) 04/01/18 06:15 RBC 3.89 Mil/cmm (3.80-5.10) 04/01/18 06:15 Hgb 12.8 gm/dL (12-16) 04/01/18 06:15 Hct 38.5 % (41.0-60) L 04/01/18 06:15 MCV 98.9 fl (81-100) 04/01/18 06:15 MCH 32.9 pg (27.0-31.0) H 04/01/18 06:15 MCHC Differential 33.2 pg (28.0-36.0) 04/01/18 06:15 RDW 10.9 % (11.5-20.0) L 04/01/18 06:15 Plt Count 223 Th/cmm (150-400) 04/01/18 06:15 MPV 10.2 fl 04/01/18 06:15 Neutrophils % 62.3 % (40.0-80.0) 04/01/18 06:15 Lymphocytes % 22.6 % (20.0-50.0) 04/01/18 06:15 Monocytes % 10.7 % (2.0-10.0) H 04/01/18 06:15 Eosinophils % 3.5 % (0.0-5.0) 04/01/18 06:15 Basophils % 0.9 % (0.0-2.0) 04/01/18 06:15 ESR 41 mm/hr (0-30) H 03/22/18 04:50 Sodium 139 mEq/L (136-145) 04/07/18 05:40 Potassium 4.1 mEq/L (3.5-5.1) 04/07/18 05:40 Chloride 107 mEq/L (98-107) 04/07/18 05:40 Carbon Dioxide 24.3 mEq/L (21.0-31.0) 04/07/18 05:40 Anion Gap 11.8 (7.0-16.0) 04/07/18 05:40 BUN 15 mg/dL (7-25) 04/07/18 05:40 Creatinine 0.3 mg/dL (0.6-1.2) L 04/07/18 05:40 Est GFR ( Amer) > 60.0 ml/min (>90) 04/07/18 05:40 Est GFR (Non-Af Amer) > 60.0 ml/min 04/07/18 05:40 BUN/Creatinine Ratio 50.0 04/07/18 05:40 Glucose 145 mg/dL (70-105) H 04/07/18 05:40 POC Glucose 142 MG/DL (70 - 105) H 04/07/18 09:24 Whole Bld Lactic Acid 1.20 mmol/L (0.60-1.99) 03/20/18 19:15 Calcium 8.5 mg/dL (8.6-10.3) L 04/07/18 05:40 Phosphorus 3.4 mg/dL (2.5-5.0) 04/07/18 05:40 Magnesium 1.9 mg/dL (1.9-2.7) 04/07/18 05:40 Total Bilirubin 0.4 mg/dL (0.3-1.0) 04/05/18 04:35 Direct Bilirubin 0.47 mg/dL (0.0-0.2) H 03/29/18 04:35 AST 36 U/L (13-39) 04/05/18 04:35 ALT 38 U/L (7-52) 04/05/18 04:35 Alkaline Phosphatase 85 U/L (34-104) 04/05/18 04:35 C-Reactive Protein < 0.2 mg/dL (0.0-0.9) 03/22/18 04:50 Total Protein 6.8 gm/dL (6.0-8.3) 04/05/18 04:35 Albumin 3.2 gm/dL (3.7-5.3) L 04/05/18 04:35 Globulin 3.6 gm/dL 04/05/18 04:35 Albumin/Globulin Ratio 0.9 (1.0-1.8) L 04/05/18 04:35 Prealbumin 13 mg/dL (10-36) 04/05/18 04:35 Triglycerides 109 mg/dL (<150) 04/05/18 04:35 Cholesterol 143 mg/dL (<200) 04/05/18 04:35 LDL Cholesterol Direct 87 mg/dL (75-193) 03/21/18 04:45 HDL Cholesterol 65 mg/dL (23-92) 03/21/18 04:45 TSH 1.11 uIU/ml (0.34-5.60) 03/21/18 04:45 Vancomycin Trough 14.4 ug/mL (5-10) H 03/24/18 20:28 - Physical Exam Vitals and I&O: Vital Signs Temp 96.8 F 04/07/18 11:18 Pulse 83 04/07/18 11:18 Resp 18 04/07/18 11:18 BP 144/78 04/07/18 11:18 Pulse Ox 100 04/07/18 11:18 Intake & Output 04/06/18 04/07/18 04/07/18 18:59 06:59 18:59 Intake Total 305 305 Balance 305 305 Weight (lbs) 44.906 kg 44.906 kg Intake: Intake, IV Amount 305 305 Ciprofloxacin 400mg 200 200 Premix PB 400 mg In 200 ml @ 200 mls/hr IV Q12HR [facility] Rx#:[id number] Levetiracetam 500 mg In 105 105 Sodium Chloride 0.9% 100 ml @ 400 mls/hr IV Q12H [facility] Rx#:[id number] Other: # Voids 3 2 # Bowel Movements 1 0 Weight Source Bedscale Bedscale Active Medications: Current Medications Acetaminophen (Tylenol 650mg/20.3ml Suspension) 650 mg GT Q4HR PRN PRN Reason: Pain Or Fever >100 Stop: 05/20/18 10:46 Albuterol/Ipratropium (Duoneb Neb) 3 ml HHN [id number] PRN PRN Reason: sob Stop: 05/20/18 10:46 Last Admin: 04/05/18 19:26 Dose: 3 ml Bisacodyl (Dulcolax 10 Mg Supp) 10 mg RC Q96H PRN PRN Reason: Constipation Stop: 05/20/18 10:46 Last Admin: 03/22/18 19:42 Dose: 10 mg Calcium/Vitamin D (Oscal W/Vitamin D) 2 tab GT BID [facility] Stop: 05/31/18 08:59 Last Admin: 04/07/18 08:39 Dose: Not Given Carbamazepine (Tegretol) 400 mg GT Q12HR@0900,2100 [facility] Stop: 05/20/18 10:59 Last Admin: 04/07/18 08:39 Dose: Not Given Docusate Sodium (Colace) 200 mg GT BID [facility] Stop: 05/20/18 10:59 Last Admin: 04/07/18 08:39 Dose: Not Given Hydralazine HCl (Apresoline 20 Mg/Ml) 20 mg IV Q6HR PRN PRN Reason: SBP>160 Stop: 05/23/18 13:11 Levetiracetam 500 mg/ Sodium (Chloride) 105 mls @ 400 mls/hr IV Q12H [facility] Stop: 05/21/18 22:59 Last Admin: 04/07/18 11:13 Dose: 400 mls/hr Ciprofloxacin (Cipro 400mg Premix Pb) 400 mg in 200 mls @ 200 mls/hr IV Q12HR [facility] Stop: 06/01/18 20:59 Last Admin: 04/07/18 08:18 Dose: 200 mls/hr Multivitamins/Minerals 10 ml/Chromium/Copper/Manganese/Zinc 1 ml/ Sodium Chloride 45 meq/Sodium Phosphate 33 mmole/Magnesium Sulfate 12 meq/Potassium Acetate 39 meq/Calcium Gluconate 2 gm/Potassium Chloride 40 meq/Dextrose/ Amino Acids/Electrolytes/ Fat Emulsion Intravenous/ Sterile Water 1,800 mls @ 75 mls/ hr IV .Q24H [facility] Stop: 05/05/18 14:59 Last Admin: 04/06/18 16:07 Dose: 75 mls/hr Insulin Human Lispro (Humalog Insulin Sliding Scale) 0 units SUBQ Q6H [facility]; Protocol Stop: 05/22/18 15:59 Last Admin: 04/07/18 09:27 Dose: Not Given Lactobacillus Rhamnosus (Culturelle 15b) 1 each PO DAILY [facility] Stop: 05/25/18 08:59 Last Admin: 04/07/18 08:39 Dose: Not Given Lactulose (Cephulac) 10 gm GT DAILY PRN PRN Reason: Constipation Last Admin: 03/22/18 13:47 Dose: 10 gm Magnesium Hydroxide (Milk Of Magnesia) 30 ml GT Q72H PRN PRN Reason: Constipation Stop: 05/20/18 10:48 Metoprolol Tartrate (Lopressor) 12.5 mg GT QPM [facility] Stop: 05/20/18 16:59 Last Admin: 04/06/18 17:00 Dose: Not Given Miscellaneous (Probiotic Screen) 1 ea PRN PRN PRN Reason: PROTOCOL Stop: 05/24/18 17:10 Miscellaneous (Ppn Per Pharmacy) 1 ea PRN PRN PRN Reason: PROTOCOL Stop: 06/01/18 15:22 Nystatin/Triamcinolone Acetonide (Mycolog Ii Cream) 1 appl TP BID [facility] Stop: 06/06/18 10:29 Last Admin: 04/07/18 11:50 Dose: 1 appl Petrolatum (Zinc Oxide) 1 appl TP HS [facility] Stop: 05/21/18 20:59 Last Admin: 04/06/18 22:43 Dose: 1 appl Sodium Phosphate (Fleet Enema) 135 ml RC Q96H PRN PRN Reason: IF DULCOLAX INEFFECTIVE Stop: 05/20/18 10:46 General: no acute distress, cachectic HEENT: atraumatic, normocephalic, PERRLA, EOMI Neck: supple, no thyromegaly Cardiovascular: S1S2, regular Lungs: clear to auscultation bilaterally, clear to percussion, other (gtube site , no drainage and surrounding erythema.) Abdomen: soft, no tender, no distended Extremities: no cyanosis, no clubbing, no edema Neurological: awake, alert, oriented - Procedures Procedures: Procedures Procedure Code Date ASPIR CURETT UTERUS NEC 69.59 06/12/11 CHANGE FEEDING DEVICE IN UP INTEST TRACT, WEATHER STRIPPER APPROACH [id number] 01/27/16 CHANGE GASTROSTOMY TUBE 11638 05/21/15 DILATION AND CURETTAGE 56771 06/12/11 EGD BIOPSY SINGLE/MULTIPLE 46563 07/15/16 EXCISION OF STOMACH, ENDO, DIAGN [id number] 07/15/16 INSERTION OF FEEDING DEVICE INTO STOMACH, ENDO [id number] 07/15/16 [facility] PROC ABDM/PER/OMENT 78947 07/29/13 LAPAROSCOP APPENDECTOMY 47.01 07/29/13 LAPAROSCOP LYSIS-PERITONEAL ADHES 54.51 07/29/13 LAPAROSCOPY APPENDECTOMY 47299 07/29/13 REPLACE GASTROSTOMY TUBE 97.02 07/26/14 Infectious Disease Assmt/Plan - Assessment Assessment: 1. Abdominal wall cellulitis, excoriation. 2. Malposition of NGT. 3. Hepatitis C. 4. Hepatitis B. 5. G-tube malfunction. Currently receiving, TPN did 6. Seizure disorder. - Plan Plan: Continue symptomatic treatment. Wound care is the mainstay of the treatment. Continue ciprofloxacin for few more days. Nutritional Asmnt/Malnutr-PDOC - Dietary Evaluation Malnutrition Findings (Please click <Entered> for more info): Nutritional Asmnt/Malnutrition Start: 03/21/18 13: 29 Text: Status: Complete Freq: Protocol: Document 03/21/18 13:29 LCHEBERG (Rec: 03/21/18 13:45 LCHENG [email or web address]) Nutritional Asmnt/Malnutrition Patient General Information Nutritional Screening High Risk Consult Diagnosis displacement of Gtube, Gtube site cellulitis Pertinent Medical Hx/Surgical Hx HTN, PUD?GERD, seizures, hepatitis B and C, developmentally disabled, quadriplegic Subjective Information Consult reiceved for shayna score 11. Pt seen in bed, non verbal noted. Per nurse pt is tolerating current tube feeding. RN Kajal asked about TF rate since [facility] only carries Jevity 1.2. Current Diet Order/ Nutrition Support Jevity 1.2 at 40ml/hr x 20hr, providing 960kcal and 44g protein Pertinent Medications oscal w/vit D, colace, nacl 0. 9%, vancomycin Pertinent Labs 2/4 Cl 108, Cr 0.4 2/3 Cr 0.4, glucose 109, alb 3 .6 Nutritional Hx/Data Height 1.6 m Height (Calculated Centimeters) 160.0 Current Weight (lbs) 45.359 kg Weight (Calculated Kilograms) 45.4 Weight (Calculated Grams) 46321.2 [place] Body Weight 115 Body Mass Index (BMI) 17.6 Weight Status Underweight GI Symptoms GI Symptoms None Last BM not indicated Usual diet at home Jevity 1.5 at 40ml/hr x 20hr at [facility] Skin Integrity/Comment: cellulitis reddened to Gtube site shayna 11 Estimated Nutritional Goals Calories/Kcals/Kg 25-30 IBW 52kg Kcals Calculated 2316-8069 Protein g/k-1.2 Protein Calculated 52-62 Fluid: ml 1300-1560ml (1ml/kcal) Nutritional Problem 1. Problem Problem inadequate intake from enteral feeding Etiology current TF regimen not meeting nutritional needs Signs/Symptoms: current TF providing 960kcal and 44g protein Malnutrition Related to Morbid Obesity Malnutrition related to morbid obesity No Intervention/Recommendation Comments 1. Recommend to increase TF rate to Jevity 1.2 at 55ml/hr x 20hr. It provides 1320kcal, 61g protein, 888ml free water, meeting 100% of nutritional needs. RN Kajal notified. 2. Monitor TF rate, tolerance, wt, skin integrity and labs 3. F/U as high risk in 2-3 days, 2/5-2/6 Expected Outcomes/Goals Expected Outcomes/Goals 1. Pt to meet at least 90% of nutritional needs via nutrition support with tolerance 2. Wt stability, skin to remain intact, labs to approach WNL.
[2018-04-07] MEDS: TPN 8.5%-70% CUSTOM IV SCH (15:45)
--- NOTE | 2018-04-07 17:36 | GI Progress Note ---
Subjective - Review of Systems Service Date: 04/07/18 Events since last encounter: site appears about same, closing up slowly perhaps Objective - Results Result Diagrams: 04/01/18 06:15 04/07/18 05:40 Recent Labs: Laboratory Last Values WBC 9.4 Th/cmm (4.8-10.8) 04/01/18 06:15 RBC 3.89 Mil/cmm (3.80-5.10) 04/01/18 06:15 Hgb 12.8 gm/dL (12-16) 04/01/18 06:15 Hct 38.5 % (41.0-60) L 04/01/18 06:15 MCV 98.9 fl (81-100) 04/01/18 06:15 MCH 32.9 pg (27.0-31.0) H 04/01/18 06:15 MCHC Differential 33.2 pg (28.0-36.0) 04/01/18 06:15 RDW 10.9 % (11.5-20.0) L 04/01/18 06:15 Plt Count 223 Th/cmm (150-400) 04/01/18 06:15 MPV 10.2 fl 04/01/18 06:15 Neutrophils % 62.3 % (40.0-80.0) 04/01/18 06:15 Lymphocytes % 22.6 % (20.0-50.0) 04/01/18 06:15 Monocytes % 10.7 % (2.0-10.0) H 04/01/18 06:15 Eosinophils % 3.5 % (0.0-5.0) 04/01/18 06:15 Basophils % 0.9 % (0.0-2.0) 04/01/18 06:15 ESR 41 mm/hr (0-30) H 03/22/18 04:50 Sodium 139 mEq/L (136-145) 04/07/18 05:40 Potassium 4.1 mEq/L (3.5-5.1) 04/07/18 05:40 Chloride 107 mEq/L (98-107) 04/07/18 05:40 Carbon Dioxide 24.3 mEq/L (21.0-31.0) 04/07/18 05:40 Anion Gap 11.8 (7.0-16.0) 04/07/18 05:40 BUN 15 mg/dL (7-25) 04/07/18 05:40 Creatinine 0.3 mg/dL (0.6-1.2) L 04/07/18 05:40 Est GFR ( Amer) > 60.0 ml/min (>90) 04/07/18 05:40 Est GFR (Non-Af Amer) > 60.0 ml/min 04/07/18 05:40 BUN/Creatinine Ratio 50.0 04/07/18 05:40 Glucose 145 mg/dL (70-105) H 04/07/18 05:40 POC Glucose 114 MG/DL (70 - 105) H 04/07/18 16:22 Whole Bld Lactic Acid 1.20 mmol/L (0.60-1.99) 03/20/18 19:15 Calcium 8.5 mg/dL (8.6-10.3) L 04/07/18 05:40 Phosphorus 3.4 mg/dL (2.5-5.0) 04/07/18 05:40 Magnesium 1.9 mg/dL (1.9-2.7) 04/07/18 05:40 Total Bilirubin 0.4 mg/dL (0.3-1.0) 04/05/18 04:35 Direct Bilirubin 0.47 mg/dL (0.0-0.2) H 03/29/18 04:35 AST 36 U/L (13-39) 04/05/18 04:35 ALT 38 U/L (7-52) 04/05/18 04:35 Alkaline Phosphatase 85 U/L (34-104) 04/05/18 04:35 C-Reactive Protein < 0.2 mg/dL (0.0-0.9) 03/22/18 04:50 Total Protein 6.8 gm/dL (6.0-8.3) 04/05/18 04:35 Albumin 3.2 gm/dL (3.7-5.3) L 04/05/18 04:35 Globulin 3.6 gm/dL 04/05/18 04:35 Albumin/Globulin Ratio 0.9 (1.0-1.8) L 04/05/18 04:35 Prealbumin 13 mg/dL (10-36) 04/05/18 04:35 Triglycerides 109 mg/dL (<150) 04/05/18 04:35 Cholesterol 143 mg/dL (<200) 04/05/18 04:35 LDL Cholesterol Direct 87 mg/dL (75-193) 03/21/18 04:45 HDL Cholesterol 65 mg/dL (23-92) 03/21/18 04:45 TSH 1.11 uIU/ml (0.34-5.60) 03/21/18 04:45 Vancomycin Trough 14.4 ug/mL (5-10) H 03/24/18 20:28 - Physical Exam Vitals and I&O: Vital Signs Temp 97.7 F 04/07/18 15:18 Pulse 83 04/07/18 15:18 Resp 18 04/07/18 15:18 BP 122/73 04/07/18 15:18 Pulse Ox 98 04/07/18 15:18 Intake & Output 04/06/18 04/07/18 04/07/18 18:59 06:59 18:59 Intake Total 794 793 4722.5 Balance 388 611 9955.5 Weight (lbs) 44.906 kg 44.906 kg Intake: Intake, IV Amount 126 902 6377.5 Ciprofloxacin 400mg 200 200 Premix PB 400 mg In 200 ml @ 200 mls/hr IV Q12HR [facility] Rx#:[id number] Levetiracetam 500 mg In 105 105 Sodium Chloride 0.9% 100 ml @ 400 mls/hr IV Q12H [facility] Rx#:[id number] Multivitamin Inj 10 ml 1772.5 Trace Element 1 ml Sodium Chloride 45 meq Sodium Phosphate 33 mmole Magnesium Sulfate 12 meq Potassium Acetate 39 meq Calcium Gluconate 2 gm Potassium Chloride 40 meq In Dextrose 70% 48.2944 ml In Amino Acids 8.5% 500 ml In Intralipids 20% 250 ml In Water, Sterile 906 ml @ 75 mls/hr IV . Q24H [facility] Rx#:[id number] Other: # Voids 3 2 # Bowel Movements 1 0 Weight Source Bedscale Bedscale Active Medications: Current Medications Acetaminophen (Tylenol 650mg/20.3ml Suspension) 650 mg GT Q4HR PRN PRN Reason: Pain Or Fever >100 Stop: 05/20/18 10:46 Albuterol/Ipratropium (Duoneb Neb) 3 ml HHN [id number] PRN PRN Reason: sob Stop: 05/20/18 10:46 Last Admin: 04/05/18 19:26 Dose: 3 ml Bisacodyl (Dulcolax 10 Mg Supp) 10 mg RC Q96H PRN PRN Reason: Constipation Stop: 05/20/18 10:46 Last Admin: 03/22/18 19:42 Dose: 10 mg Calcium/Vitamin D (Oscal W/Vitamin D) 2 tab GT BID [facility] Stop: 05/31/18 08:59 Last Admin: 04/07/18 08:39 Dose: Not Given Carbamazepine (Tegretol) 400 mg GT Q12HR@0900,2100 [facility] Stop: 05/20/18 10:59 Last Admin: 04/07/18 08:39 Dose: Not Given Docusate Sodium (Colace) 200 mg GT BID [facility] Stop: 05/20/18 10:59 Last Admin: 04/07/18 08:39 Dose: Not Given Hydralazine HCl (Apresoline 20 Mg/Ml) 20 mg IV Q6HR PRN PRN Reason: SBP>160 Stop: 05/23/18 13:11 Levetiracetam 500 mg/ Sodium (Chloride) 105 mls @ 400 mls/hr IV Q12H [facility] Stop: 05/21/18 22:59 Last Admin: 04/07/18 11:13 Dose: 400 mls/hr Ciprofloxacin (Cipro 400mg Premix Pb) 400 mg in 200 mls @ 200 mls/hr IV Q12HR [facility] Stop: 06/01/18 20:59 Last Admin: 04/07/18 08:18 Dose: 200 mls/hr Multivitamins/Minerals 10 ml/Chromium/Copper/Manganese/Zinc 1 ml/ Sodium Chloride 45 meq/Sodium Phosphate 33 mmole/Magnesium Sulfate 12 meq/Potassium Acetate 39 meq/Calcium Gluconate 2 gm/Potassium Chloride 40 meq/Dextrose/ Amino Acids/Electrolytes/ Fat Emulsion Intravenous/ Sterile Water 1,800 mls @ 75 mls/ hr IV .Q24H [facility] Stop: 05/05/18 14:59 Last Admin: 04/07/18 15:45 Dose: 75 mls/hr Insulin Human Lispro (Humalog Insulin Sliding Scale) 0 units SUBQ Q6H [facility]; Protocol Stop: 05/22/18 15:59 Last Admin: 04/07/18 09:27 Dose: Not Given Lactobacillus Rhamnosus (Culturelle 15b) 1 each PO DAILY [facility] Stop: 05/25/18 08:59 Last Admin: 04/07/18 08:39 Dose: Not Given Lactulose (Cephulac) 10 gm GT DAILY PRN PRN Reason: Constipation Last Admin: 03/22/18 13:47 Dose: 10 gm Magnesium Hydroxide (Milk Of Magnesia) 30 ml GT Q72H PRN PRN Reason: Constipation Stop: 05/20/18 10:48 Metoprolol Tartrate (Lopressor) 12.5 mg GT QPM [facility] Stop: 05/20/18 16:59 Last Admin: 04/06/18 17:00 Dose: Not Given Miscellaneous (Probiotic Screen) 1 ea PRN PRN PRN Reason: PROTOCOL Stop: 05/24/18 17:10 Miscellaneous (Ppn Per Pharmacy) 1 ea PRN PRN PRN Reason: PROTOCOL Stop: 06/01/18 15:22 Nystatin/Triamcinolone Acetonide (Mycolog Ii Cream) 1 appl TP BID [facility] Stop: 06/06/18 10:29 Last Admin: 04/07/18 16:02 Dose: 1 appl Petrolatum (Zinc Oxide) 1 appl TP HS [facility] Stop: 05/21/18 20:59 Last Admin: 04/06/18 22:43 Dose: 1 appl Sodium Phosphate (Fleet Enema) 135 ml RC Q96H PRN PRN Reason: IF DULCOLAX INEFFECTIVE Stop: 05/20/18 10:46 General: Alert HEENT: Atraumatic Neck: Supple Cardiovascular: Regular rate Lungs: Clear to auscultation Abdomen: Bowel sounds, Soft, Other (GC fistula with erythema, bandaged. Some purulent drainage), no Tender, no Distended, no Rebound, no Mass, no Guarding Extremities: no Edema Neurological: Sensation intact Skin: Rash Psych/Mental Status: Mood NL - Procedures Procedures: Procedures Procedure Code Date ASPIR CURETT UTERUS NEC 69.59 06/12/11 CHANGE FEEDING DEVICE IN UP INTEST TRACT, CYBER SYSTEMS ENGINEER APPROACH [id number] 01/27/16 CHANGE GASTROSTOMY TUBE 24358 05/21/15 DILATION AND CURETTAGE 39130 06/12/11 EGD BIOPSY SINGLE/MULTIPLE 62455 07/15/16 EXCISION OF STOMACH, ENDO, DIAGN [id number] 07/15/16 INSERTION OF FEEDING DEVICE INTO STOMACH, ENDO [id number] 07/15/16 LAPARO PROC ABDM/PER/OMENT 07961 07/29/13 LAPAROSCOP APPENDECTOMY 47.01 07/29/13 LAPAROSCOP LYSIS-PERITONEAL ADHES 54.51 07/29/13 LAPAROSCOPY APPENDECTOMY 52781 07/29/13 REPLACE GASTROSTOMY TUBE 97.02 07/26/14 Assessment/Plan - Assessment Assessment: Assessment: # G tube site cellulitis # Dysphagia # Developmental delay As of 03/25, the site looked worse thus the G tube was pulled. Will need to wait for the area to heal prior to inserting a new one On 03/30, there is still erythema and some leakage from the area. Unclear if proper wound care is being applied to this area. On 04/01, the site looks more inflamed. Does not appear to be leakage from NG feeding, but infection on the skin is not improving. on 04/02 - NG tube was pulled bc of tip extruding out of gc fistula site Plan: - appreciate ID consult to help with unresolving cellulitis. - site has not healed or closed on its own; Discussed case with Dr Molina: most likely Plan will be likely fistula closure and surgical PEG -Discussed other option of Over the scope clip closure, but likely this will increase hospital LOS and take 1-2 weeks before safe to insert new PEG tube but certainly an option, but not the best option in this case -wound care -placing PEG through old site not advised at this time, likely fistula size is also too small, would need another EGD and PEG but only after fistula completely closed -Will await surgical management
[2018-04-07] MEDS: Zinc Oxide Ointment 60 gm TP SCH (22:40)
[2018-04-08] MEDS: INSULIN LISPRO SLIDING SCALE 100 UNITS/ML UNIT SUBQ SCH ×4 (04:49→22:18)
[2018-04-08 05:48] LABS: % BASOPHILS 0.9 % (0.0-2.0); % EOSINOPHILS 7.5 % (0.0-5.0); % LYMPHOCYTES 21.4 % (20.0-50.0); % MONOCYTES 10.9 % (2.0-10.0); % NEUTROPHILS 59.3 % (40.0-80.0); BASOPHILE ABSOLUTE 0.1 Th/cumm (0-0.2); EOSINOPHILE ABSOLUTE 0.6 Th/cmm (0.1-0.4); HEMOGLOBIN 13.7 gm/dL (12-16); LYMPHOCYTE ABSOLUTE 1.7 Th/cmm (1.5-3.0); MEAN CELL VOLUME 97.9 fl (81-100); MEAN CORPUSCULAR HEMOGLOBIN 32.8 pg (27.0-31.0); MEAN CORPUSCULAR HGB CONC 33.5 pg (28.0-36.0); MEAN PLATELET VOLUME 9.8 fl; MONOCYTE ABSOLUTE 0.9 Th/cmm (0.3-1.0); NEUTROPHILE ABSOLUTE 4.5 Th/cmm (1.8-8.0); PLATELET COUNT 200 Th/cmm (150-400); RED BLOOD COUNT 4.19 Mil/cmm (3.80-5.10); RED CELL DISTRIBUTION WIDTH 10.9 % (11.5-20.0); WHITE BLOOD COUNT 7.8 Th/cmm (4.8-10.8)
[2018-04-08 06:00] LABS: INR 1.02 (0.5-1.4); PROTHROMBIN TIME (TEST) 10.6 SECONDS (9.5-11.5)
[2018-04-08 06:09] LABS: ANION GAP 12.8 (7.0-16.0); BUN - UREA NITROGEN 16 mg/dL (7-25); CALCIUM SERUM 8.5 mg/dL (8.6-10.3); CARBON DIOXIDE 25.5 mEq/L (21.0-31.0); CHLORIDE 106 mEq/L (98-107); CREATININE - SERUM 0.4 mg/dL (0.6-1.2); GFR AFRICAN-AMERICAN > 60.0 ml/min (>90); GFR NON AFRICAN-AMERICAN > 60.0 ml/min; GLUCOSE 122 mg/dL (70-105); MAGNESIUM 1.9 mg/dL (1.9-2.7); PHOSPHOROUS 4.1 mg/dL (2.5-5.0); POTASSIUM SERUM 4.3 mEq/L (3.5-5.1); SODIUM SERUM 140 mEq/L (136-145)
--- NOTE | 2018-04-08 06:45 | Internal Medicine Prog Note ---
Internal Medicine Subjective - Subjective Service Date: 04/08/18 (sScheduled for surgery later today. Cleared by cardiology.) Patient is:: awake, non-verbal Per staff patient has:: no adverse event Internal Medicine Objective - Results Result Diagrams: 04/08/18 05:30 04/08/18 05:30 Recent Labs: Laboratory Last Values WBC 7.8 Th/cmm (4.8-10.8) 04/08/18 05:30 RBC 4.19 Mil/cmm (3.80-5.10) 04/08/18 05:30 Hgb 13.7 gm/dL (12-16) 04/08/18 05:30 Hct 41.0 % (41.0-60) 04/08/18 05:30 MCV 97.9 fl (81-100) 04/08/18 05:30 MCH 32.8 pg (27.0-31.0) H 04/08/18 05:30 MCHC Differential 33.5 pg (28.0-36.0) 04/08/18 05:30 RDW 10.9 % (11.5-20.0) L 04/08/18 05:30 Plt Count 200 Th/cmm (150-400) 04/08/18 05:30 MPV 9.8 fl 04/08/18 05:30 Neutrophils % 59.3 % (40.0-80.0) 04/08/18 05:30 Lymphocytes % 21.4 % (20.0-50.0) 04/08/18 05:30 Monocytes % 10.9 % (2.0-10.0) H 04/08/18 05:30 Eosinophils % 7.5 % (0.0-5.0) H 04/08/18 05:30 Basophils % 0.9 % (0.0-2.0) 04/08/18 05:30 ESR 41 mm/hr (0-30) H 03/22/18 04:50 PT 10.6 SECONDS (9.5-11.5) 04/08/18 05:30 INR 1.02 (0.5-1.4) 04/08/18 05:30 Sodium 140 mEq/L (136-145) 04/08/18 05:30 Potassium 4.3 mEq/L (3.5-5.1) 04/08/18 05:30 Chloride 106 mEq/L (98-107) 04/08/18 05:30 Carbon Dioxide 25.5 mEq/L (21.0-31.0) 04/08/18 05:30 Anion Gap 12.8 (7.0-16.0) 04/08/18 05:30 BUN 16 mg/dL (7-25) 04/08/18 05:30 Creatinine 0.4 mg/dL (0.6-1.2) L 04/08/18 05:30 Est GFR ( Amer) > 60.0 ml/min (>90) 04/08/18 05:30 Est GFR (Non-Af Amer) > 60.0 ml/min 04/08/18 05:30 BUN/Creatinine Ratio 40.0 04/08/18 05:30 Glucose 122 mg/dL (70-105) H 04/08/18 05:30 POC Glucose 117 MG/DL (70 - 105) H 04/08/18 04:49 Whole Bld Lactic Acid 1.20 mmol/L (0.60-1.99) 03/20/18 19:15 Calcium 8.5 mg/dL (8.6-10.3) L 04/08/18 05:30 Phosphorus 4.1 mg/dL (2.5-5.0) 04/08/18 05:30 Magnesium 1.9 mg/dL (1.9-2.7) 04/08/18 05:30 Total Bilirubin 0.4 mg/dL (0.3-1.0) 04/05/18 04:35 Direct Bilirubin 0.47 mg/dL (0.0-0.2) H 03/29/18 04:35 AST 36 U/L (13-39) 04/05/18 04:35 ALT 38 U/L (7-52) 04/05/18 04:35 Alkaline Phosphatase 85 U/L (34-104) 04/05/18 04:35 C-Reactive Protein < 0.2 mg/dL (0.0-0.9) 03/22/18 04:50 Total Protein 6.8 gm/dL (6.0-8.3) 04/05/18 04:35 Albumin 3.2 gm/dL (3.7-5.3) L 04/05/18 04:35 Globulin 3.6 gm/dL 04/05/18 04:35 Albumin/Globulin Ratio 0.9 (1.0-1.8) L 04/05/18 04:35 Prealbumin 13 mg/dL (10-36) 04/05/18 04:35 Triglycerides 109 mg/dL (<150) 04/05/18 04:35 Cholesterol 143 mg/dL (<200) 04/05/18 04:35 LDL Cholesterol Direct 87 mg/dL (75-193) 03/21/18 04:45 HDL Cholesterol 65 mg/dL (23-92) 03/21/18 04:45 TSH 1.11 uIU/ml (0.34-5.60) 03/21/18 04:45 Vancomycin Trough 14.4 ug/mL (5-10) H 03/24/18 20:28 - Physical Exam Vitals and I&O: Vital Signs Temp 97.3 F 04/08/18 00:00 Pulse 90 04/08/18 00:00 Resp 18 04/08/18 00:00 BP 117/66 04/08/18 00:00 Pulse Ox 93 04/08/18 00:00 Intake & Output 04/07/18 04/07/18 04/08/18 06:59 18:59 06:59 Intake Total 305 2077.5 Balance 305 2077.5 Weight (lbs) 44.906 kg 44.906 kg Intake: Intake, IV Amount 305 2077.5 Ciprofloxacin 400mg 200 200 Premix PB 400 mg In 200 ml @ 200 mls/hr IV Q12HR [facility] Rx#:[id number] Levetiracetam 500 mg In 105 105 Sodium Chloride 0.9% 100 ml @ 400 mls/hr IV Q12H [facility] Rx#:[id number] Multivitamin Inj 10 ml 1772.5 Trace Element 1 ml Sodium Chloride 45 meq Sodium Phosphate 33 mmole Magnesium Sulfate 12 meq Potassium Acetate 39 meq Calcium Gluconate 2 gm Potassium Chloride 40 meq In Dextrose 70% 48.2944 ml In Amino Acids 8.5% 500 ml In Intralipids 20% 250 ml In Water, Sterile 906 ml @ 75 mls/hr IV . Q24H [facility] Rx#:[id number] Other: # Voids 2 3 # Bowel Movements 0 0 Weight Source Bedscale Bedscale Active Medications: Current Medications Acetaminophen (Tylenol 650mg/20.3ml Suspension) 650 mg GT Q4HR PRN PRN Reason: Pain Or Fever >100 Stop: 05/20/18 10:46 Albuterol/Ipratropium (Duoneb Neb) 3 ml HHN [id number] PRN PRN Reason: sob Stop: 05/20/18 10:46 Last Admin: 04/05/18 19:26 Dose: 3 ml Bisacodyl (Dulcolax 10 Mg Supp) 10 mg RC Q96H PRN PRN Reason: Constipation Stop: 05/20/18 10:46 Last Admin: 03/22/18 19:42 Dose: 10 mg Calcium/Vitamin D (Oscal W/Vitamin D) 2 tab GT BID [facility] Stop: 05/31/18 08:59 Last Admin: 04/07/18 19:19 Dose: Not Given Carbamazepine (Tegretol) 400 mg GT Q12HR@0900,2100 [facility] Stop: 05/20/18 10:59 Last Admin: 04/07/18 22:45 Dose: Not Given Docusate Sodium (Colace) 200 mg GT BID [facility] Stop: 05/20/18 10:59 Last Admin: 04/07/18 19:19 Dose: Not Given Hydralazine HCl (Apresoline 20 Mg/Ml) 20 mg IV Q6HR PRN PRN Reason: SBP>160 Stop: 05/23/18 13:11 Levetiracetam 500 mg/ Sodium (Chloride) 105 mls @ 400 mls/hr IV Q12H [facility] Stop: 05/21/18 22:59 Last Admin: 04/07/18 22:38 Dose: 400 mls/hr Ciprofloxacin (Cipro 400mg Premix Pb) 400 mg in 200 mls @ 200 mls/hr IV Q12HR [facility] Stop: 06/01/18 20:59 Last Admin: 04/07/18 20:24 Dose: 200 mls/hr Multivitamins/Minerals 10 ml/Chromium/Copper/Manganese/Zinc 1 ml/ Sodium Chloride 45 meq/Sodium Phosphate 33 mmole/Magnesium Sulfate 12 meq/Potassium Acetate 39 meq/Calcium Gluconate 2 gm/Potassium Chloride 40 meq/Dextrose/ Amino Acids/Electrolytes/ Fat Emulsion Intravenous/ Sterile Water 1,800 mls @ 75 mls/ hr IV .Q24H [facility] Stop: 05/05/18 14:59 Last Admin: 04/07/18 15:45 Dose: 75 mls/hr Insulin Human Lispro (Humalog Insulin Sliding Scale) 0 units SUBQ Q6H [facility]; Protocol Stop: 05/22/18 15:59 Last Admin: 04/08/18 04:49 Dose: Not Given Lactobacillus Rhamnosus (Culturelle 15b) 1 each PO DAILY [facility] Stop: 05/25/18 08:59 Last Admin: 04/07/18 08:39 Dose: Not Given Lactulose (Cephulac) 10 gm GT DAILY PRN PRN Reason: Constipation Last Admin: 03/22/18 13:47 Dose: 10 gm Magnesium Hydroxide (Milk Of Magnesia) 30 ml GT Q72H PRN PRN Reason: Constipation Stop: 05/20/18 10:48 Metoprolol Tartrate (Lopressor) 12.5 mg GT QPM [facility] Stop: 05/20/18 16:59 Last Admin: 04/07/18 19:19 Dose: Not Given Miscellaneous (Probiotic Screen) 1 ea MC PRN PRN PRN Reason: PROTOCOL Stop: 05/24/18 17:10 Miscellaneous (Ppn Per Pharmacy) 1 ea MC PRN PRN PRN Reason: PROTOCOL Stop: 06/01/18 15:22 Nystatin/Triamcinolone Acetonide (Mycolog Ii Cream) 1 appl TP BID [facility] Stop: 06/06/18 10:29 Last Admin: 04/07/18 16:02 Dose: 1 appl Petrolatum (Zinc Oxide) 1 appl TP HS [facility] Stop: 05/21/18 20:59 Last Admin: 04/07/18 22:40 Dose: 1 appl Sodium Phosphate (Fleet Enema) 135 ml RC Q96H PRN PRN Reason: IF DULCOLAX INEFFECTIVE Stop: 05/20/18 10:46 General: thin, NAD HEENT: NC/AT, PERRLA, EOMI Neck: No JVD, no No thyromegaly Lungs: CTAB Cardiovascular: RRR Abdomen: soft, non-tender, +GT - redness, +GT - discharge, other (GT SITE WITH IMPROVED ERYTHEMA) Extremities: clear Neurological: no change, spastic - Procedures Procedures: Procedures Procedure Code Date ASPIR CURETT UTERUS NEC 69.59 06/12/11 CHANGE FEEDING DEVICE IN UP INTEST TRACT, LABOR ARBITRATOR APPROACH [id number] 01/27/16 CHANGE GASTROSTOMY TUBE 18483 05/21/15 DILATION AND CURETTAGE 49075 06/12/11 EGD BIOPSY SINGLE/MULTIPLE 59758 07/15/16 EXCISION OF STOMACH, ENDO, DIAGN [id number] 07/15/16 INSERTION OF FEEDING DEVICE INTO STOMACH, ENDO [id number] 07/15/16 LAPARO PROC ABDM/PER/OMENT 75644 07/29/13 LAPAROSCOP APPENDECTOMY 47.01 07/29/13 LAPAROSCOP LYSIS-PERITONEAL ADHES 54.51 07/29/13 LAPAROSCOPY APPENDECTOMY 59730 07/29/13 REPLACE GASTROSTOMY TUBE 97.02 07/26/14 2D-ECHO--P Internal Medicine Assmt/Plan - Assessment Assessment: 1. GTUBE MALFUNCTION WITH LEAKAGE 2. GT SITE CELLULITIS/DRAINAGE (GC FISTULA) 3. COMPLEX WOUND INFX-PSEUDOMONAS AERUGINOSA 3. HISTORY OF DYSPHAGIA-PEG PLACEMENT 4. HX OF CONSTIPATION 5. HYPONATREMIA--RESOLVED 6. HX OF SEIZURE DISORDER-STABLE 7. HX OF INTELLECTUAL DISABILITY 8. S/P PICC LINE PLACEMENT 9. ELECTROLYTE IMBALANCE-STABLE/MONITOR. - Plan Plan: CONT WITH CURRENT TX PLAN AND MGT CONT WITH TPN, CONT TO HOLD GT FEEDS FOR NOW CONT WITH IV ABXS (CIPRO), AND LOCAL WOUND CARE MONITOR LYTES. MINI LAP WITH TAKE DOWN OF GC FISTULA AND REPLACEMENT OF GT (CONSERVATOR CONSENTED) TODAY CARDIOLOGY EVAL FOR PRE-OP CLEARANCE GI/ID FU Nutritional Asmnt/Malnutr-PDOC - Dietary Evaluation Malnutrition Findings (Please click <Entered> for more info): Nutritional Asmnt/Malnutrition Start: 03/21/18 13: 29 Text: Status: Complete Freq: Protocol: Document 03/21/18 13:29 LCHENG (Rec: 03/21/18 13:45 [id number] Nutritional Asmnt/Malnutrition Patient General Information Nutritional Screening High Risk Consult Diagnosis displacement of Gtube, Gtube site cellulitis Pertinent Medical Hx/Surgical Hx HTN, PUD?GERD, seizures, hepatitis B and C, developmentally disabled, quadriplegic Subjective Information Consult reiceved for shayna score 11. Pt seen in bed, non verbal noted. Per nurse pt is tolerating current tube feeding. CALEB Rdz asked about TF rate since pt was receiving Jevity 1.5 at retirement and our hospital only carries Jevity 1.2. Current Diet Order/ Nutrition Support Jevity 1.2 at 40ml/hr x 20hr, providing 960kcal and 44g protein Pertinent Medications oscal w/vit D, colace, nacl 0. 9%, vancomycin Pertinent Labs 2/4 Cl 108, Cr 0.4 2/3 Cr 0.4, glucose 109, alb 3 .6 Nutritional Hx/Data Height 1.6 m Height (Calculated Centimeters) 160.0 Current Weight (lbs) 45.359 kg Weight (Calculated Kilograms) 45.4 Weight (Calculated Grams) 20358.2 [place] Body Weight 115 Body Mass Index (BMI) 17.6 Weight Status Underweight GI Symptoms GI Symptoms None Last BM not indicated Usual diet at home Jevity 1.5 at 40ml/hr x 20hr at [facility] Skin Integrity/Comment: cellulitis reddened to Gtube site shayna 11 Estimated Nutritional Goals Calories/Kcals/Kg 25-30 IBW 52kg Kcals Calculated 8806-6454 Protein g/k-1.2 Protein Calculated 52-62 Fluid: ml 1300-1560ml (1ml/kcal) Nutritional Problem 1. Problem Problem inadequate intake from enteral feeding Etiology current TF regimen not meeting nutritional needs Signs/Symptoms: current TF providing 960kcal and 44g protein Malnutrition Related to Morbid Obesity Malnutrition related to morbid obesity No Intervention/Recommendation Comments 1. Recommend to increase TF rate to Jevity 1.2 at 55ml/hr x 20hr. It provides 1320kcal, 61g protein, 888ml free water, meeting 100% of nutritional needs. CALEB Rdz notified. 2. Monitor TF rate, tolerance, wt, skin integrity and labs 3. F/U as high risk in 2-3 days, 2/5-2/6 Expected Outcomes/Goals Expected Outcomes/Goals 1. Pt to meet at least 90% of nutritional needs via nutrition support with tolerance 2. Wt stability, skin to remain intact, labs to approach WNL.
[2018-04-08] MEDS: Ciprofloxacin 400mg Premix PB 400 MG/200 ML BAG IV SCH ×2 (08:05→21:15)
[2018-04-08] MEDS: Docusate Sodium 100 mg/10 mL UD GT SCH ×2 (08:06→16:44)
[2018-04-08] MEDS: Lactobacillus Rhamnosus GG 15 Billion CFU CAP.SPRINK PO SCH (08:07)
[2018-04-08] MEDS: Calcium Carb/Vit D 500 mg/200 U Tab GT SCH ×2 (08:07→16:49)
[2018-04-08] MEDS: carBAMazepine 200 mg/10 mL UDC GT SCH ×2 (08:07→21:27)
[2018-04-08] MEDS ORDERED: fentaNYL Citrate 100 mcg/2mL Vial ONE (10:47)
[2018-04-08] MEDS ORDERED: Propofol **SURGERY USE ONLY** 20 ML IV ONE (10:56)
[2018-04-08] MEDS ORDERED: Neostigmine 10mg/10mL Vial ONE (10:56)
[2018-04-08] MEDS ORDERED: Lactated Ringer 1,000 ML IV ONE (12:00)
--- NOTE | 2018-04-08 12:44 | Operative Report ---
DATE OF SURGERY: 04/08/2018 TIME: 12:06 p.m. PREOPERATIVE DIAGNOSES: Cellulitis, abdominal wall. Persistent gastrocutaneous fistula. POSTOPERATIVE DIAGNOSES: Cellulitis, abdominal wall. Persistent gastrocutaneous fistula. OPERATION PERFORMED: 1. Laparotomy. 2. Lysis of adhesions. 3. Takedown of gastrocutaneous fistula. 4. Wedge resection of stomach fistula site. 5. Open gastrostomy 20-Pashto 15 mL balloon. SPECIMENS: Wedge resection of stomach fistula site. ANESTHESIA: General and local. ANESTHESIOLOGIST: Dr. Oli Dominguez. ESTIMATED BLOOD LOSS: 20 mL. SURGEON: Freddie Molina M.D. BOILER TECHNICIAN: None. PROSTHETIC DEVICES: None. COMPLICATIONS: None. DESCRIPTION OF PROCEDURE: After confirming the patient's identification, procedure to be done, the patient was placed in supine position, the patient administered general anesthesia, intubated uneventfully. The abdomen was prepped and draped in usual sterile fashion. Timeout was performed. An upper midline incision was made from the xiphoid to the umbilicus. This incision was carried down with the scalpel and deepened with the Bovie cautery, entered into the abdominal cavity without injuring underlying bowel. Some adhesions of the omentum were taken down with the Metzenbaum scissors and cautery. The gastrocutaneous fistula site was then noted. The stomach was disconnected from the abdominal wall using the cutting mode of the cautery and completely detached. The Allis clamps were used to close the fistula site and then a GI stapling device was then fired across this fistula site performing a wedge resection of the stomach. This was performed and passed off as surgical specimen. Then, a little bit more distally about maybe 2-3 cm away, an opening was made in the stomach. New gastrotomy opening was made. The 20-Pashto 15 mL catheter was then introduced through the left upper quadrant of the abdominal wall through a new side away from the abdominal wall infection and subcostal area and then pursestring tie was then placed around the new gastrotomy opening. The new gastrostomy tube was then placed into the new gastrotomy opening. The balloon was inflated to 15 mL of normal saline. The pursestring ties with 0 silk sutures were then cinched down and then tacked to the abdominal wall. The balloon was then retracted to the abdominal wall snug and the G-tube was flushed and there was no leak. The fascia was then approximated with #1 PDS suture from top and bottom and tied in the midline. Local anesthesia was administered. Wound was irrigated with normal saline. The skin was approximated using skin huber. Dressings were applied. The patient tolerated the procedure well. The patient was woken up from anesthesia and taken to the recovery room in stable condition. JOB# [id number]
--- NOTE | 2018-04-08 13:14 | Diagnostic Imaging Report ---
Portable chest x-ray HISTORY: Shortness of breath, endotracheal tube placement Compared with prior exam of the vertebrae 2018, endotracheal tube has been inserted. The tip is approximately 1.0 cm above the miles. Allowing for a poor inspiration, no focal pulmonary processes are seen. Left-sided vascular catheter extends into the region of the upper right atrium. IMPRESSION: 1. Endotracheal tube tip approximately 1.0 cm above the miles 2. No focal pulmonary processes
[2018-04-08 14:21] LABS: PaCO2 36.6 mmHg (35.0-45.0); PaO2 244.2 mmHg (80.0-100.0); sO2c 99.6 % (92.0-100.0)
[2018-04-08 14:22] LABS: ALLEN TEST pos
[2018-04-08] MEDS: Albuterol/Ipratropium Neb 3 ML AERS HHN PRN (14:39)
--- NOTE | 2018-04-08 14:41 | Infectious Disease Prog Note ---
Infectious Disease Subjective - Review of Systems Service Date: 04/08/18 Subjective: abdominal surgery, laparotomy, removal of fistula and g tube placement performed today. Currently in the ICU for post op care. The erythema and excoriation at epigastric area is improving. No fever. Infectious Disease Objective - Results Result Diagrams: 04/10/18 04:40 04/10/18 04:40 Recent Labs: Laboratory Last Values WBC 7.8 Th/cmm (4.8-10.8) 04/08/18 05:30 RBC 4.19 Mil/cmm (3.80-5.10) 04/08/18 05:30 Hgb 13.7 gm/dL (12-16) 04/08/18 05:30 Hct 41.0 % (41.0-60) 04/08/18 05:30 MCV 97.9 fl (81-100) 04/08/18 05:30 MCH 32.8 pg (27.0-31.0) H 04/08/18 05:30 MCHC Differential 33.5 pg (28.0-36.0) 04/08/18 05:30 RDW 10.9 % (11.5-20.0) L 04/08/18 05:30 Plt Count 200 Th/cmm (150-400) 04/08/18 05:30 MPV 9.8 fl 04/08/18 05:30 Neutrophils % 59.3 % (40.0-80.0) 04/08/18 05:30 Lymphocytes % 21.4 % (20.0-50.0) 04/08/18 05:30 Monocytes % 10.9 % (2.0-10.0) H 04/08/18 05:30 Eosinophils % 7.5 % (0.0-5.0) H 04/08/18 05:30 Basophils % 0.9 % (0.0-2.0) 04/08/18 05:30 ESR 41 mm/hr (0-30) H 03/22/18 04:50 PT 10.6 SECONDS (9.5-11.5) 04/08/18 05:30 INR 1.02 (0.5-1.4) 04/08/18 05:30 Specimen Source aterial 04/08/18 14:05 Sample Site left Radial 04/08/18 14:05 pH 7.40 (7.35-7.45) 04/08/18 14:05 pCO2 36.6 mmHg (35.0-45.0) 04/08/18 14:05 pO2 244.2 mmHg (80.0-100.0) H 04/08/18 14:05 HCO3 22.0 mEq/L (20.0-26.0) 04/08/18 14:05 Base Excess -2.3 mEq/L (-3.0-3.0) 04/08/18 14:05 O2 Saturation 99.6 % (92.0-100.0) 04/08/18 14:05 Herman Test pos 04/08/18 14:05 Vent Rate 10 04/08/18 14:05 Inspired O2 50 04/08/18 14:05 Tidal Volume 600 04/08/18 14:05 PEEP n/a 04/08/18 14:05 Pressure (ins/psv/peep) n/a 04/08/18 14:05 Critical Value dvassel 04/08/18 14:05 Sodium 140 mEq/L (136-145) 04/08/18 05:30 Potassium 4.3 mEq/L (3.5-5.1) 04/08/18 05:30 Chloride 106 mEq/L (98-107) 04/08/18 05:30 Carbon Dioxide 25.5 mEq/L (21.0-31.0) 04/08/18 05:30 Anion Gap 12.8 (7.0-16.0) 04/08/18 05:30 BUN 16 mg/dL (7-25) 04/08/18 05:30 Creatinine 0.4 mg/dL (0.6-1.2) L 04/08/18 05:30 Est GFR ( Amer) > 60.0 ml/min (>90) 04/08/18 05:30 Est GFR (Non-Af Amer) > 60.0 ml/min 04/08/18 05:30 BUN/Creatinine Ratio 40.0 04/08/18 05:30 Glucose 122 mg/dL (70-105) H 04/08/18 05:30 POC Glucose 99 MG/DL (70 - 105) 04/08/18 09:33 Whole Bld Lactic Acid 1.20 mmol/L (0.60-1.99) 03/20/18 19:15 Calcium 8.5 mg/dL (8.6-10.3) L 04/08/18 05:30 Phosphorus 4.1 mg/dL (2.5-5.0) 04/08/18 05:30 Magnesium 1.9 mg/dL (1.9-2.7) 04/08/18 05:30 Total Bilirubin 0.4 mg/dL (0.3-1.0) 04/05/18 04:35 Direct Bilirubin 0.47 mg/dL (0.0-0.2) H 03/29/18 04:35 AST 36 U/L (13-39) 04/05/18 04:35 ALT 38 U/L (7-52) 04/05/18 04:35 Alkaline Phosphatase 85 U/L (34-104) 04/05/18 04:35 C-Reactive Protein < 0.2 mg/dL (0.0-0.9) 03/22/18 04:50 Total Protein 6.8 gm/dL (6.0-8.3) 04/05/18 04:35 Albumin 3.2 gm/dL (3.7-5.3) L 04/05/18 04:35 Globulin 3.6 gm/dL 04/05/18 04:35 Albumin/Globulin Ratio 0.9 (1.0-1.8) L 04/05/18 04:35 Prealbumin 13 mg/dL (10-36) 04/05/18 04:35 Triglycerides 109 mg/dL (<150) 04/05/18 04:35 Cholesterol 143 mg/dL (<200) 04/05/18 04:35 LDL Cholesterol Direct 87 mg/dL (75-193) 03/21/18 04:45 HDL Cholesterol 65 mg/dL (23-92) 03/21/18 04:45 TSH 1.11 uIU/ml (0.34-5.60) 03/21/18 04:45 Vancomycin Trough 14.4 ug/mL (5-10) H 03/24/18 20:28 - Physical Exam Vitals and I&O: Vital Signs Temp 98.4 F 04/08/18 10:20 Pulse 98 04/08/18 12:34 Resp 20 04/08/18 10:20 BP 126/78 04/08/18 10:20 Pulse Ox 100 04/08/18 12:34 Intake & Output 04/07/18 04/08/18 04/08/18 18:59 06:59 18:59 Intake Total 2077.5 1205 Balance 2077.5 1205 Weight (lbs) 44.906 kg 44.906 kg 44.906 kg Intake: Intake, IV Amount 2077.5 305 Ciprofloxacin 400mg 200 200 Premix PB 400 mg In 200 ml @ 200 mls/hr IV Q12HR [facility] Rx#:[id number] Levetiracetam 500 mg In 105 105 Sodium Chloride 0.9% 100 ml @ 400 mls/hr IV Q12H [facility] Rx#:[id number] Multivitamin Inj 10 ml 1772.5 Trace Element 1 ml Sodium Chloride 45 meq Sodium Phosphate 33 mmole Magnesium Sulfate 12 meq Potassium Acetate 39 meq Calcium Gluconate 2 gm Potassium Chloride 40 meq In Dextrose 70% 48.2944 ml In Amino Acids 8.5% 500 ml In Intralipids 20% 250 ml In Water, Sterile 906 ml @ 75 mls/hr IV . Q24H [facility] Rx#:[id number] TPN/PPN 900 Other: # Voids 3 2 1 # Bowel Movements 0 0 0 Weight Source Bedscale Bedscale Bedscale Active Medications: Current Medications Acetaminophen (Tylenol 650mg/20.3ml Suspension) 650 mg GT Q4HR PRN PRN Reason: Pain Or Fever >100 Stop: 05/20/18 10:46 Albuterol/Ipratropium (Duoneb Neb) 3 ml HHN [id number] PRN PRN Reason: sob Stop: 05/20/18 10:46 Last Admin: 04/08/18 14:39 Dose: 3 ml Bisacodyl (Dulcolax 10 Mg Supp) 10 mg RC Q96H PRN PRN Reason: Constipation Stop: 05/20/18 10:46 Last Admin: 03/22/18 19:42 Dose: 10 mg Calcium/Vitamin D (Oscal W/Vitamin D) 2 tab GT BID [facility] Stop: 05/31/18 08:59 Last Admin: 04/08/18 08:07 Dose: Not Given Carbamazepine (Tegretol) 400 mg GT Q12HR@0900,2100 [facility] Stop: 05/20/18 10:59 Last Admin: 04/08/18 08:07 Dose: Not Given Docusate Sodium (Colace) 200 mg GT BID [facility] Stop: 05/20/18 10:59 Last Admin: 04/08/18 08:06 Dose: Not Given Hydralazine HCl (Apresoline 20 Mg/Ml) 20 mg IV Q6HR PRN PRN Reason: SBP>160 Stop: 05/23/18 13:11 Levetiracetam 500 mg/ Sodium (Chloride) 105 mls @ 400 mls/hr IV Q12H [facility] Stop: 05/21/18 22:59 Last Admin: 04/08/18 12:50 Dose: 400 mls/hr Ciprofloxacin (Cipro 400mg Premix Pb) 400 mg in 200 mls @ 200 mls/hr IV Q12HR [facility] Stop: 06/01/18 20:59 Last Admin: 04/08/18 08:05 Dose: 200 mls/hr Multivitamins/Minerals 10 ml/Chromium/Copper/Manganese/Zinc 1 ml/ Sodium Chloride 45 meq/Sodium Phosphate 33 mmole/Magnesium Sulfate 12 meq/Potassium Acetate 39 meq/Calcium Gluconate 2 gm/Potassium Chloride 40 meq/Dextrose/ Amino Acids/Electrolytes/ Fat Emulsion Intravenous/ Sterile Water 1,800 mls @ 75 mls/ hr IV .Q24H [facility] Stop: 05/05/18 14:59 Last Admin: 04/07/18 15:45 Dose: 75 mls/hr Insulin Human Lispro (Humalog Insulin Sliding Scale) 0 units SUBQ Q6H [facility]; Protocol Stop: 05/22/18 15:59 Last Admin: 04/08/18 10:53 Dose: Not Given Lactobacillus Rhamnosus (Culturelle 15b) 1 each PO DAILY [facility] Stop: 05/25/18 08:59 Last Admin: 04/08/18 08:07 Dose: Not Given Lactulose (Cephulac) 10 gm GT DAILY PRN PRN Reason: Constipation Last Admin: 03/22/18 13:47 Dose: 10 gm Magnesium Hydroxide (Milk Of Magnesia) 30 ml GT Q72H PRN PRN Reason: Constipation Stop: 05/20/18 10:48 Metoprolol Tartrate (Lopressor) 12.5 mg GT QPM [facility] Stop: 05/20/18 16:59 Last Admin: 04/07/18 19:19 Dose: Not Given Miscellaneous (Probiotic Screen) 1 ea PRN PRN PRN Reason: PROTOCOL Stop: 05/24/18 17:10 Miscellaneous (Ppn Per Pharmacy) 1 ea PRN PRN PRN Reason: PROTOCOL Stop: 06/01/18 15:22 Nystatin/Triamcinolone Acetonide (Mycolog Ii Cream) 1 appl TP BID [facility] Stop: 06/06/18 10:29 Last Admin: 04/08/18 08:07 Dose: 1 appl Petrolatum (Zinc Oxide) 1 appl TP HS [facility] Stop: 05/21/18 20:59 Last Admin: 04/07/18 22:40 Dose: 1 appl Sodium Phosphate (Fleet Enema) 135 ml RC Q96H PRN PRN Reason: IF DULCOLAX INEFFECTIVE Stop: 05/20/18 10:46 General: no acute distress, cachectic HEENT: atraumatic, normocephalic, PERRLA, EOMI, moist mucous membrane Neck: supple, no thyromegaly, no lymphadenopathy, no rigid Cardiovascular: S1S2, regular Lungs: clear to auscultation bilaterally, clear to percussion Abdomen: soft, no tender, no distended Extremities: no cyanosis, no clubbing, no edema Skin: intact - Procedures Procedures: Procedures Procedure Code Date ASPIR CURETT UTERUS NEC 69.59 06/12/11 CHANGE FEEDING DEVICE IN UP INTEST TRACT, BEVEL GEAR GENERATOR OPERATOR APPROACH [id number] 01/27/16 CHANGE GASTROSTOMY TUBE 73176 05/21/15 DILATION AND CURETTAGE 30305 06/12/11 EGD BIOPSY SINGLE/MULTIPLE 04090 07/15/16 EXCISION OF STOMACH, ENDO, DIAGN [id number] 07/15/16 INSERTION OF FEEDING DEVICE INTO STOMACH, ENDO [id number] 07/15/16 [facility] PROC ABDM/PER/OMENT 44047 07/29/13 LAPAROSCOP APPENDECTOMY 47.01 07/29/13 LAPAROSCOP LYSIS-PERITONEAL ADHES 54.51 07/29/13 LAPAROSCOPY APPENDECTOMY 34745 07/29/13 REPLACE GASTROSTOMY TUBE 97.02 07/26/14 Infectious Disease Assmt/Plan - Assessment Assessment: 1. Abdominal wall cellulitis, excoriation. 2. Malposition of NGT. 3. Hepatitis C. 4. Hepatitis B. 5. G-tube malfunction. Currently receiving, TPN did 6. Seizure disorder. - Plan Plan: Continue symptomatic treatment. Wound care is the mainstay of the treatment. Continue ciprofloxacin for few more days. Nutritional Asmnt/Malnutr-PDOC - Dietary Evaluation Malnutrition Findings (Please click <Entered> for more info): Nutritional Asmnt/Malnutrition Start: 03/21/18 13: 29 Text: Status: Complete Freq: Protocol: Document 03/21/18 13:29 LCHEBERG (Rec: 03/21/18 13:45 LCHENG [email or web address]) Nutritional Asmnt/Malnutrition Patient General Information Nutritional Screening High Risk Consult Diagnosis displacement of Gtube, Gtube site cellulitis Pertinent Medical Hx/Surgical Hx HTN, PUD?GERD, seizures, hepatitis B and C, developmentally disabled, quadriplegic Subjective Information Consult reiceved for shayna score 11. Pt seen in bed, non verbal noted. Per nurse pt is tolerating current tube feeding. CALEB Rdz asked about TF rate since pt was receiving Jevity 1.5 at senior living and our hospital only carries Jevity 1.2. Current Diet Order/ Nutrition Support Jevity 1.2 at 40ml/hr x 20hr, providing 960kcal and 44g protein Pertinent Medications oscal w/vit D, colace, nacl 0. 9%, vancomycin Pertinent Labs 2/4 Cl 108, Cr 0.4 2/3 Cr 0.4, glucose 109, alb 3 .6 Nutritional Hx/Data Height 1.6 m Height (Calculated Centimeters) 160.0 Current Weight (lbs) 45.359 kg Weight (Calculated Kilograms) 45.4 Weight (Calculated Grams) 87665.2 [place] Body Weight 115 Body Mass Index (BMI) 17.6 Weight Status Underweight GI Symptoms GI Symptoms None Last BM not indicated Usual diet at home Jevity 1.5 at 40ml/hr x 20hr at [facility] Skin Integrity/Comment: cellulitis reddened to Gtube site shayna 11 Estimated Nutritional Goals Calories/Kcals/Kg 25-30 IBW 52kg Kcals Calculated 3233-2791 Protein g/k-1.2 Protein Calculated 52-62 Fluid: ml 1300-1560ml (1ml/kcal) Nutritional Problem 1. Problem Problem inadequate intake from enteral feeding Etiology current TF regimen not meeting nutritional needs Signs/Symptoms: current TF providing 960kcal and 44g protein Malnutrition Related to Morbid Obesity Malnutrition related to morbid obesity No Intervention/Recommendation Comments 1. Recommend to increase TF rate to Jevity 1.2 at 55ml/hr x 20hr. It provides 1320kcal, 61g protein, 888ml free water, meeting 100% of nutritional needs. RN Kajal notified. 2. Monitor TF rate, tolerance, wt, skin integrity and labs 3. F/U as high risk in 2-3 days, 2/5-2/ Expected Outcomes/Goals Expected Outcomes/Goals 1. Pt to meet at least 90% of nutritional needs via nutrition support with tolerance 2. Wt stability, skin to remain intact, labs to approach WNL.
--- NOTE | 2018-04-08 15:21 | General Progress Note ---
Subjective - Review of Systems Service Date: 04/08/18 Subjective: Patient postoperatively on Ventilator Objective - Results Result Diagrams: 04/08/18 05:30 04/08/18 05:30 Recent Labs: Laboratory Last Values WBC 7.8 Th/cmm (4.8-10.8) 04/08/18 05:30 RBC 4.19 Mil/cmm (3.80-5.10) 04/08/18 05:30 Hgb 13.7 gm/dL (12-16) 04/08/18 05:30 Hct 41.0 % (41.0-60) 04/08/18 05:30 MCV 97.9 fl (81-100) 04/08/18 05:30 MCH 32.8 pg (27.0-31.0) H 04/08/18 05:30 MCHC Differential 33.5 pg (28.0-36.0) 04/08/18 05:30 RDW 10.9 % (11.5-20.0) L 04/08/18 05:30 Plt Count 200 Th/cmm (150-400) 04/08/18 05:30 MPV 9.8 fl 04/08/18 05:30 Neutrophils % 59.3 % (40.0-80.0) 04/08/18 05:30 Lymphocytes % 21.4 % (20.0-50.0) 04/08/18 05:30 Monocytes % 10.9 % (2.0-10.0) H 04/08/18 05:30 Eosinophils % 7.5 % (0.0-5.0) H 04/08/18 05:30 Basophils % 0.9 % (0.0-2.0) 04/08/18 05:30 ESR 41 mm/hr (0-30) H 03/22/18 04:50 PT 10.6 SECONDS (9.5-11.5) 04/08/18 05:30 INR 1.02 (0.5-1.4) 04/08/18 05:30 Specimen Source aterial 04/08/18 14:05 Sample Site left Radial 04/08/18 14:05 pH 7.40 (7.35-7.45) 04/08/18 14:05 pCO2 36.6 mmHg (35.0-45.0) 04/08/18 14:05 pO2 244.2 mmHg (80.0-100.0) H 04/08/18 14:05 HCO3 22.0 mEq/L (20.0-26.0) 04/08/18 14:05 Base Excess -2.3 mEq/L (-3.0-3.0) 04/08/18 14:05 O2 Saturation 99.6 % (92.0-100.0) 04/08/18 14:05 Herman Test pos 04/08/18 14:05 Vent Rate 10 04/08/18 14:05 Inspired O2 50 04/08/18 14:05 Tidal Volume 600 04/08/18 14:05 PEEP n/a 04/08/18 14:05 Pressure (ins/psv/peep) n/a 04/08/18 14:05 Critical Value dvassel 04/08/18 14:05 Sodium 140 mEq/L (136-145) 04/08/18 05:30 Potassium 4.3 mEq/L (3.5-5.1) 04/08/18 05:30 Chloride 106 mEq/L (98-107) 04/08/18 05:30 Carbon Dioxide 25.5 mEq/L (21.0-31.0) 04/08/18 05:30 Anion Gap 12.8 (7.0-16.0) 04/08/18 05:30 BUN 16 mg/dL (7-25) 04/08/18 05:30 Creatinine 0.4 mg/dL (0.6-1.2) L 04/08/18 05:30 Est GFR ( Amer) > 60.0 ml/min (>90) 04/08/18 05:30 Est GFR (Non-Af Amer) > 60.0 ml/min 04/08/18 05:30 BUN/Creatinine Ratio 40.0 04/08/18 05:30 Glucose 122 mg/dL (70-105) H 04/08/18 05:30 POC Glucose 99 MG/DL (70 - 105) 04/08/18 09:33 Whole Bld Lactic Acid 1.20 mmol/L (0.60-1.99) 03/20/18 19:15 Calcium 8.5 mg/dL (8.6-10.3) L 04/08/18 05:30 Phosphorus 4.1 mg/dL (2.5-5.0) 04/08/18 05:30 Magnesium 1.9 mg/dL (1.9-2.7) 04/08/18 05:30 Total Bilirubin 0.4 mg/dL (0.3-1.0) 04/05/18 04:35 Direct Bilirubin 0.47 mg/dL (0.0-0.2) H 03/29/18 04:35 AST 36 U/L (13-39) 04/05/18 04:35 ALT 38 U/L (7-52) 04/05/18 04:35 Alkaline Phosphatase 85 U/L (34-104) 04/05/18 04:35 C-Reactive Protein < 0.2 mg/dL (0.0-0.9) 03/22/18 04:50 Total Protein 6.8 gm/dL (6.0-8.3) 04/05/18 04:35 Albumin 3.2 gm/dL (3.7-5.3) L 04/05/18 04:35 Globulin 3.6 gm/dL 04/05/18 04:35 Albumin/Globulin Ratio 0.9 (1.0-1.8) L 04/05/18 04:35 Prealbumin 13 mg/dL (10-36) 04/05/18 04:35 Triglycerides 109 mg/dL (<150) 04/05/18 04:35 Cholesterol 143 mg/dL (<200) 04/05/18 04:35 LDL Cholesterol Direct 87 mg/dL (75-193) 03/21/18 04:45 HDL Cholesterol 65 mg/dL (23-92) 03/21/18 04:45 TSH 1.11 uIU/ml (0.34-5.60) 03/21/18 04:45 Vancomycin Trough 14.4 ug/mL (5-10) H 03/24/18 20:28 - Physical Exam Vitals and I&O: Vital Signs Temp 98.4 F 04/08/18 10:20 Pulse 110 04/08/18 14:40 Resp 11 04/08/18 14:00 BP 163/85 04/08/18 14:00 Pulse Ox 100 04/08/18 14:40 Intake & Output 04/07/18 04/08/18 04/08/18 18:59 06:59 18:59 Intake Total 2077.5 1205 Balance 2077.5 1205 Weight (lbs) 44.906 kg 44.906 kg 44.906 kg Intake: Intake, IV Amount 2077.5 305 Ciprofloxacin 400mg 200 200 Premix PB 400 mg In 200 ml @ 200 mls/hr IV Q12HR [facility] Rx#:[id number] Levetiracetam 500 mg In 105 105 Sodium Chloride 0.9% 100 ml @ 400 mls/hr IV Q12H [facility] Rx#:[id number] Multivitamin Inj 10 ml 1772.5 Trace Element 1 ml Sodium Chloride 45 meq Sodium Phosphate 33 mmole Magnesium Sulfate 12 meq Potassium Acetate 39 meq Calcium Gluconate 2 gm Potassium Chloride 40 meq In Dextrose 70% 48.2944 ml In Amino Acids 8.5% 500 ml In Intralipids 20% 250 ml In Water, Sterile 906 ml @ 75 mls/hr IV . Q24H [facility] Rx#:[id number] TPN/PPN 900 Other: # Voids 3 2 1 # Bowel Movements 0 0 0 Weight Source Bedscale Bedscale Bedscale Active Medications: Current Medications Acetaminophen (Tylenol 650mg/20.3ml Suspension) 650 mg GT Q4HR PRN PRN Reason: Pain Or Fever >100 Stop: 05/20/18 10:46 Albuterol/Ipratropium (Duoneb Neb) 3 ml HHN [id number] PRN PRN Reason: sob Stop: 05/20/18 10:46 Last Admin: 04/08/18 14:39 Dose: 3 ml Bisacodyl (Dulcolax 10 Mg Supp) 10 mg RC Q96H PRN PRN Reason: Constipation Stop: 05/20/18 10:46 Last Admin: 03/22/18 19:42 Dose: 10 mg Calcium/Vitamin D (Oscal W/Vitamin D) 2 tab GT BID [facility] Stop: 05/31/18 08:59 Last Admin: 04/08/18 08:07 Dose: Not Given Carbamazepine (Tegretol) 400 mg GT Q12HR@0900,2100 [facility] Stop: 05/20/18 10:59 Last Admin: 04/08/18 08:07 Dose: Not Given Docusate Sodium (Colace) 200 mg GT BID [facility] Stop: 05/20/18 10:59 Last Admin: 04/08/18 08:06 Dose: Not Given Hydralazine HCl (Apresoline 20 Mg/Ml) 20 mg IV Q6HR PRN PRN Reason: SBP>160 Stop: 05/23/18 13:11 Levetiracetam 500 mg/ Sodium (Chloride) 105 mls @ 400 mls/hr IV Q12H [facility] Stop: 05/21/18 22:59 Last Admin: 04/08/18 12:50 Dose: 400 mls/hr Ciprofloxacin (Cipro 400mg Premix Pb) 400 mg in 200 mls @ 200 mls/hr IV Q12HR [facility] Stop: 06/01/18 20:59 Last Admin: 04/08/18 08:05 Dose: 200 mls/hr Multivitamins/Minerals 10 ml/Chromium/Copper/Manganese/Zinc 1 ml/ Sodium Chloride 45 meq/Sodium Phosphate 33 mmole/Magnesium Sulfate 12 meq/Potassium Acetate 39 meq/Calcium Gluconate 2 gm/Potassium Chloride 40 meq/Dextrose/ Amino Acids/Electrolytes/ Fat Emulsion Intravenous/ Sterile Water 1,800 mls @ 75 mls/ hr IV .Q24H [facility] Stop: 05/05/18 14:59 Last Admin: 04/07/18 15:45 Dose: 75 mls/hr Insulin Human Lispro (Humalog Insulin Sliding Scale) 0 units SUBQ Q6H [facility]; Protocol Stop: 05/22/18 15:59 Last Admin: 04/08/18 10:53 Dose: Not Given Lactobacillus Rhamnosus (Culturelle 15b) 1 each PO DAILY [facility] Stop: 05/25/18 08:59 Last Admin: 04/08/18 08:07 Dose: Not Given Lactulose (Cephulac) 10 gm GT DAILY PRN PRN Reason: Constipation Last Admin: 03/22/18 13:47 Dose: 10 gm Magnesium Hydroxide (Milk Of Magnesia) 30 ml GT Q72H PRN PRN Reason: Constipation Stop: 05/20/18 10:48 Metoprolol Tartrate (Lopressor) 12.5 mg GT QPM [facility] Stop: 05/20/18 16:59 Last Admin: 04/07/18 19:19 Dose: Not Given Miscellaneous (Probiotic Screen) 1 ea PRN PRN PRN Reason: PROTOCOL Stop: 05/24/18 17:10 Miscellaneous (Ppn Per Pharmacy) 1 ea PRN PRN PRN Reason: PROTOCOL Stop: 06/01/18 15:22 Nystatin/Triamcinolone Acetonide (Mycolog Ii Cream) 1 appl TP BID [facility] Stop: 06/06/18 10:29 Last Admin: 04/08/18 08:07 Dose: 1 appl Petrolatum (Zinc Oxide) 1 appl TP HS [facility] Stop: 05/21/18 20:59 Last Admin: 04/07/18 22:40 Dose: 1 appl Sodium Phosphate (Fleet Enema) 135 ml RC Q96H PRN PRN Reason: IF DULCOLAX INEFFECTIVE Stop: 05/20/18 10:46 General: Alert, Mild distress HEENT: Atraumatic, Mucous membr. moist/pink Neck: Supple, JVD, +2 carotid pulse wo bruit (flat) Cardiovascular: Regular rate, Normal S1, Normal S2, Systolic murmurs, Other ( tachycardia) Lungs: Clear to auscultation, Other (wheezing and rhonchi) Abdomen: Bowel sounds, Soft, Other (hypoactive bowel sounds G-tube placed), no Tender, no Distended, no Rebound, no Mass, no Guarding Extremities: Pulses (normal), Other (contractures of the upper extremities), no Edema Neurological: Sensation intact Skin: Rash Psych/Mental Status: Mood NL - Procedures Procedures: Procedures Procedure Code Date ASPIR CURETT UTERUS NEC 69.59 06/12/11 CHANGE FEEDING DEVICE IN UP INTEST TRACT, CHEMICAL TECHNICIAN APPROACH [id number] 01/27/16 CHANGE GASTROSTOMY TUBE 95012 05/21/15 DILATION AND CURETTAGE 28813 06/12/11 EGD BIOPSY SINGLE/MULTIPLE 92068 07/15/16 EXCISION OF ABD SUBCU/FASCIA, OPEN APPROACH [id number] 03/20/18 EXCISION OF ABDOMINAL WALL, OPEN APPROACH [id number] 03/20/18 EXCISION OF STOMACH, ENDO, DIAGN [id number] 07/15/16 EXCISION OF STOMACH, OPEN APPROACH [id number] 03/20/18 INSERTION OF FEEDING DEVICE INTO STOMACH, ENDO [id number] 07/15/16 INSERTION OF FEEDING DEVICE INTO STOMACH, OPEN APPROACH [id number] 03/20/18 [facility] PROC ABDM/PER/OMENT 41141 07/29/13 LAPAROSCOP APPENDECTOMY 47.01 07/29/13 LAPAROSCOP LYSIS-PERITONEAL ADHES 54.51 07/29/13 LAPAROSCOPY APPENDECTOMY 78362 07/29/13 RELEASE OMENTUM, OPEN APPROACH [id number] 03/20/18 REPLACE GASTROSTOMY TUBE 97.02 07/26/14 Assessment/Plan - Assessment Assessment: G-tube cellulitis Gastrocutaneous fistula Hypernatremia Contractures both upper and lower extremity Protein calorie malnutrition Dementia Cholelithiasis Osteoporosis Patient had surgery laparotomy lysis of adhesion gastrocutaneous fistula and G- tube placement Hypertension Sinus tachycardia - Plan Plan: Patient on ventilator Lopressor 5 mg IV every 6 hours to control blood pressure and her heart rate Nutritional Asmnt/Malnutr-PDOC - Dietary Evaluation Malnutrition Findings (Please click <Entered> for more info): Nutritional Asmnt/Malnutrition Start: 03/21/18 13: 29 Text: Status: Complete Freq: Protocol: Document 03/21/18 13:29 LCHENG (Rec: 03/21/18 13:45 LCHENG [email or web address]) Nutritional Asmnt/Malnutrition Patient General Information Nutritional Screening High Risk Consult Diagnosis displacement of Gtube, Gtube site cellulitis Pertinent Medical Hx/Surgical Hx HTN, PUD?GERD, seizures, hepatitis B and C, developmentally disabled, quadriplegic Subjective Information Consult reiceved for shayna score 11. Pt seen in bed, non verbal noted. Per nurse pt is tolerating current tube feeding. CALEB Rdz asked about TF rate since pt was receiving Jevity 1.5 [facility] and our hospital only carries Jevity 1.2. Current Diet Order/ Nutrition Support Jevity 1.2 at 40ml/hr x 20hr, providing 960kcal and 44g protein Pertinent Medications oscal w/vit D, colace, nacl 0. 9%, vancomycin Pertinent Labs 2/4 Cl 108, Cr 0.4 2/3 Cr 0.4, glucose 109, alb 3 .6 Nutritional Hx/Data Height 1.6 m Height (Calculated Centimeters) 160.0 Current Weight (lbs) 45.359 kg Weight (Calculated Kilograms) 45.4 Weight (Calculated Grams) 37972.2 [place] Body Weight 115 Body Mass Index (BMI) 17.6 Weight Status Underweight GI Symptoms GI Symptoms None Last BM not indicated Usual diet at home Jevity 1.5 at 40ml/hr x 20hr at [facility] Skin Integrity/Comment: cellulitis reddened to Gtube site shayna 11 Estimated Nutritional Goals Calories/Kcals/Kg 25-30 IBW 52kg Kcals Calculated 2830-2064 Protein g/k-1.2 Protein Calculated 52-62 Fluid: ml 1300-1560ml (1ml/kcal) Nutritional Problem 1. Problem Problem inadequate intake from enteral feeding Etiology current TF regimen not meeting nutritional needs Signs/Symptoms: current TF providing 960kcal and 44g protein Malnutrition Related to Morbid Obesity Malnutrition related to morbid obesity No Intervention/Recommendation Comments 1. Recommend to increase TF rate to Jevity 1.2 at 55ml/hr x 20hr. It provides 1320kcal, 61g protein, 888ml free water, meeting 100% of nutritional needs. RN Kajal notified. 2. Monitor TF rate, tolerance, wt, skin integrity and labs 3. F/U as high risk in 2-3 days, 2/5-2/6 Expected Outcomes/Goals Expected Outcomes/Goals 1. Pt to meet at least 90% of nutritional needs via nutrition support with tolerance 2. Wt stability, skin to remain intact, labs to approach WNL.
[2018-04-08] MEDS: Metoprolol tartrate 1 mg/ml 5mL Amp IV SCH ×2 (17:43→23:50)
[2018-04-08] MEDS: Morphine Sulfate 2 mg/mL 1mL Syr IVP PRN (18:00)
[2018-04-08] MEDS: Albuterol/Ipratropium Neb 3 ML AERS HHN SCH (18:46)
--- NOTE | 2018-04-08 18:53 | GI Progress Note ---
Subjective - Review of Systems Service Date: 04/08/18 Events since last encounter: Pt is s/p OR for resection of G-C fistula and placement of G tube Objective - Results Result Diagrams: 04/08/18 05:30 04/08/18 05:30 Recent Labs: Laboratory Last Values WBC 7.8 Th/cmm (4.8-10.8) 04/08/18 05:30 RBC 4.19 Mil/cmm (3.80-5.10) 04/08/18 05:30 Hgb 13.7 gm/dL (12-16) 04/08/18 05:30 Hct 41.0 % (41.0-60) 04/08/18 05:30 MCV 97.9 fl (81-100) 04/08/18 05:30 MCH 32.8 pg (27.0-31.0) H 04/08/18 05:30 MCHC Differential 33.5 pg (28.0-36.0) 04/08/18 05:30 RDW 10.9 % (11.5-20.0) L 04/08/18 05:30 Plt Count 200 Th/cmm (150-400) 04/08/18 05:30 MPV 9.8 fl 04/08/18 05:30 Neutrophils % 59.3 % (40.0-80.0) 04/08/18 05:30 Lymphocytes % 21.4 % (20.0-50.0) 04/08/18 05:30 Monocytes % 10.9 % (2.0-10.0) H 04/08/18 05:30 Eosinophils % 7.5 % (0.0-5.0) H 04/08/18 05:30 Basophils % 0.9 % (0.0-2.0) 04/08/18 05:30 ESR 41 mm/hr (0-30) H 03/22/18 04:50 PT 10.6 SECONDS (9.5-11.5) 04/08/18 05:30 INR 1.02 (0.5-1.4) 04/08/18 05:30 Specimen Source aterial 04/08/18 14:05 Sample Site left Radial 04/08/18 14:05 pH 7.40 (7.35-7.45) 04/08/18 14:05 pCO2 36.6 mmHg (35.0-45.0) 04/08/18 14:05 pO2 244.2 mmHg (80.0-100.0) H 04/08/18 14:05 HCO3 22.0 mEq/L (20.0-26.0) 04/08/18 14:05 Base Excess -2.3 mEq/L (-3.0-3.0) 04/08/18 14:05 O2 Saturation 99.6 % (92.0-100.0) 04/08/18 14:05 Herman Test pos 04/08/18 14:05 Vent Rate 10 04/08/18 14:05 Inspired O2 50 04/08/18 14:05 Tidal Volume 600 04/08/18 14:05 PEEP n/a 04/08/18 14:05 Pressure (ins/psv/peep) n/a 04/08/18 14:05 Critical Value dvassel 04/08/18 14:05 Sodium 140 mEq/L (136-145) 04/08/18 05:30 Potassium 4.3 mEq/L (3.5-5.1) 04/08/18 05:30 Chloride 106 mEq/L (98-107) 04/08/18 05:30 Carbon Dioxide 25.5 mEq/L (21.0-31.0) 04/08/18 05:30 Anion Gap 12.8 (7.0-16.0) 04/08/18 05:30 BUN 16 mg/dL (7-25) 04/08/18 05:30 Creatinine 0.4 mg/dL (0.6-1.2) L 04/08/18 05:30 Est GFR ( Amer) > 60.0 ml/min (>90) 04/08/18 05:30 Est GFR (Non-Af Amer) > 60.0 ml/min 04/08/18 05:30 BUN/Creatinine Ratio 40.0 04/08/18 05:30 Glucose 122 mg/dL (70-105) H 04/08/18 05:30 POC Glucose 232 MG/DL (70 - 105) H 04/08/18 17:51 Whole Bld Lactic Acid 1.20 mmol/L (0.60-1.99) 03/20/18 19:15 Calcium 8.5 mg/dL (8.6-10.3) L 04/08/18 05:30 Phosphorus 4.1 mg/dL (2.5-5.0) 04/08/18 05:30 Magnesium 1.9 mg/dL (1.9-2.7) 04/08/18 05:30 Total Bilirubin 0.4 mg/dL (0.3-1.0) 04/05/18 04:35 Direct Bilirubin 0.47 mg/dL (0.0-0.2) H 03/29/18 04:35 AST 36 U/L (13-39) 04/05/18 04:35 ALT 38 U/L (7-52) 04/05/18 04:35 Alkaline Phosphatase 85 U/L (34-104) 04/05/18 04:35 C-Reactive Protein < 0.2 mg/dL (0.0-0.9) 03/22/18 04:50 Total Protein 6.8 gm/dL (6.0-8.3) 04/05/18 04:35 Albumin 3.2 gm/dL (3.7-5.3) L 04/05/18 04:35 Globulin 3.6 gm/dL 04/05/18 04:35 Albumin/Globulin Ratio 0.9 (1.0-1.8) L 04/05/18 04:35 Prealbumin 13 mg/dL (10-36) 04/05/18 04:35 Triglycerides 109 mg/dL (<150) 04/05/18 04:35 Cholesterol 143 mg/dL (<200) 04/05/18 04:35 LDL Cholesterol Direct 87 mg/dL (75-193) 03/21/18 04:45 HDL Cholesterol 65 mg/dL (23-92) 03/21/18 04:45 TSH 1.11 uIU/ml (0.34-5.60) 03/21/18 04:45 Vancomycin Trough 14.4 ug/mL (5-10) H 03/24/18 20:28 - Physical Exam Vitals and I&O: Vital Signs Temp -98.5 F 04/08/18 16:22 Pulse 98 04/08/18 18:48 Resp 16 04/08/18 17:22 BP 169/87 04/08/18 17:43 Pulse Ox 100 04/08/18 18:48 Intake & Output 04/07/18 04/08/18 04/08/18 18:59 06:59 18:59 Intake Total 2077.5 1205 105 Balance 2077.5 1205 105 Weight (lbs) 44.906 kg 44.906 kg 44.906 kg Intake: Intake, IV Amount 2077.5 305 105 Ciprofloxacin 400mg 200 200 Premix PB 400 mg In 200 ml @ 200 mls/hr IV Q12HR [facility] Rx#:[id number] Levetiracetam 500 mg In 105 105 105 Sodium Chloride 0.9% 100 ml @ 400 mls/hr IV Q12H [facility] Rx#:[id number] Multivitamin Inj 10 ml 1772.5 Trace Element 1 ml Sodium Chloride 45 meq Sodium Phosphate 33 mmole Magnesium Sulfate 12 meq Potassium Acetate 39 meq Calcium Gluconate 2 gm Potassium Chloride 40 meq In Dextrose 70% 48.2944 ml In Amino Acids 8.5% 500 ml In Intralipids 20% 250 ml In Water, Sterile 906 ml @ 75 mls/hr IV . Q24H [facility] Rx#:[id number] TPN/PPN 900 Other: # Voids 3 2 1 # Bowel Movements 0 0 0 Weight Source Bedscale Bedscale Bedscale Active Medications: Current Medications Acetaminophen (Tylenol 650mg/20.3ml Suspension) 650 mg GT Q4HR PRN PRN Reason: Pain Or Fever >100 Stop: 05/20/18 10:46 Albuterol/Ipratropium (Duoneb Neb) 3 ml HHN [id number] PRN PRN Reason: sob Stop: 05/20/18 10:46 Last Admin: 04/08/18 14:39 Dose: 3 ml Albuterol/Ipratropium (Duoneb Neb) 3 ml HHN Q6HRT [facility] Stop: 06/07/18 18:59 Last Admin: 04/08/18 18:46 Dose: 3 ml Bisacodyl (Dulcolax 10 Mg Supp) 10 mg RC Q96H PRN PRN Reason: Constipation Stop: 05/20/18 10:46 Last Admin: 03/22/18 19:42 Dose: 10 mg Calcium/Vitamin D (Oscal W/Vitamin D) 2 tab GT BID [facility] Stop: 05/31/18 08:59 Last Admin: 04/08/18 16:49 Dose: Not Given Carbamazepine (Tegretol) 400 mg GT Q12HR@0900,2100 [facility] Stop: 05/20/18 10:59 Last Admin: 04/08/18 08:07 Dose: Not Given Docusate Sodium (Colace) 200 mg GT BID [facility] Stop: 05/20/18 10:59 Last Admin: 04/08/18 16:44 Dose: Not Given Hydralazine HCl (Apresoline 20 Mg/Ml) 20 mg IV Q6HR PRN PRN Reason: SBP>160 Stop: 05/23/18 13:11 Levetiracetam 500 mg/ Sodium (Chloride) 105 mls @ 400 mls/hr IV Q12H [facility] Stop: 05/21/18 22:59 Last Infusion: 04/08/18 17:24 Dose: Infused Ciprofloxacin (Cipro 400mg Premix Pb) 400 mg in 200 mls @ 200 mls/hr IV Q12HR [facility] Stop: 06/01/18 20:59 Last Admin: 04/08/18 08:05 Dose: 200 mls/hr Multivitamins/Minerals 10 ml/Chromium/Copper/Manganese/Zinc 1 ml/ Sodium Chloride 45 meq/Sodium Phosphate 33 mmole/Magnesium Sulfate 12 meq/Potassium Acetate 39 meq/Calcium Gluconate 2 gm/Potassium Chloride 40 meq/Dextrose/ Amino Acids/Electrolytes/ Fat Emulsion Intravenous/ Sterile Water 1,800 mls @ 75 mls/ hr IV .Q24H [facility] Stop: 05/05/18 14:59 Last Admin: 04/07/18 15:45 Dose: 75 mls/hr Insulin Human Lispro (Humalog Insulin Sliding Scale) 0 units SUBQ Q6H [facility]; Protocol Stop: 05/22/18 15:59 Last Admin: 04/08/18 18:00 Dose: 4 units Lactobacillus Rhamnosus (Culturelle 15b) 1 each PO DAILY [facility] Stop: 05/25/18 08:59 Last Admin: 04/08/18 08:07 Dose: Not Given Lactulose (Cephulac) 10 gm GT DAILY PRN PRN Reason: Constipation Last Admin: 03/22/18 13:47 Dose: 10 gm Magnesium Hydroxide (Milk Of Magnesia) 30 ml GT Q72H PRN PRN Reason: Constipation Stop: 05/20/18 10:48 Metoprolol Tartrate (Lopressor) 5 mg IV Q6HR [facility] Stop: 06/07/18 17:59 Last Admin: 04/08/18 17:43 Dose: 5 mg Miscellaneous (Probiotic Screen) 1 ea MC PRN PRN PRN Reason: PROTOCOL Stop: 05/24/18 17:10 Miscellaneous (Ppn Per Pharmacy) 1 ea MC PRN PRN PRN Reason: PROTOCOL Stop: 06/01/18 15:22 Morphine Sulfate (Morphine) 1 mg IVP Q4HR PRN PRN Reason: Pain (Moderate) Stop: 06/07/18 17:30 Nystatin/Triamcinolone Acetonide (Mycolog Ii Cream) 1 appl TP BID [facility] Stop: 06/06/18 10:29 Last Admin: 04/08/18 08:07 Dose: 1 appl Petrolatum (Zinc Oxide) 1 appl TP HS [facility] Stop: 05/21/18 20:59 Last Admin: 04/07/18 22:40 Dose: 1 appl Sodium Phosphate (Fleet Enema) 135 ml RC Q96H PRN PRN Reason: IF DULCOLAX INEFFECTIVE Stop: 05/20/18 10:46 General: Alert, Mild distress HEENT: Atraumatic, Mucous membr. moist/pink Neck: Supple, JVD, +2 carotid pulse wo bruit (flat) Cardiovascular: Regular rate, Normal S1, Normal S2, Systolic murmurs, Other ( tachycardia) Lungs: Clear to auscultation, Other (wheezing and rhonchi) Abdomen: Bowel sounds, Soft, Other (hypoactive bowel sounds G-tube placed), no Tender, no Distended, no Rebound, no Mass, no Guarding Extremities: Pulses (normal), Other (contractures of the upper extremities), no Edema Neurological: Sensation intact Skin: Rash Psych/Mental Status: Mood NL - Procedures Procedures: Procedures Procedure Code Date ASPIR CURETT UTERUS NEC 69.59 06/12/11 CHANGE FEEDING DEVICE IN UP INTEST TRACT, NUTRITION ASSISTANT APPROACH [id number] 01/27/16 CHANGE GASTROSTOMY TUBE 29223 05/21/15 DILATION AND CURETTAGE 22322 06/12/11 EGD BIOPSY SINGLE/MULTIPLE 89782 07/15/16 EXCISION OF ABD SUBCU/FASCIA, OPEN APPROACH [id number] 03/20/18 EXCISION OF ABDOMINAL WALL, OPEN APPROACH [id number] 03/20/18 EXCISION OF STOMACH, ENDO, DIAGN [id number] 07/15/16 EXCISION OF STOMACH, OPEN APPROACH [id number] 03/20/18 INSERTION OF FEEDING DEVICE INTO STOMACH, ENDO [id number] 07/15/16 INSERTION OF FEEDING DEVICE INTO STOMACH, OPEN APPROACH [id number] 03/20/18 [facility]O PROC ABDM/PER/OMENT 67938 07/29/13 LAPAROSCOP APPENDECTOMY 47.01 07/29/13 LAPAROSCOP LYSIS-PERITONEAL ADHES 54.51 07/29/13 LAPAROSCOPY APPENDECTOMY 11019 07/29/13 RELEASE OMENTUM, OPEN APPROACH [id number] 03/20/18 REPLACE GASTROSTOMY TUBE 97.02 07/26/14 Assessment/Plan - Assessment Assessment: Assessment: # G tube site cellulitis # Dysphagia # Developmental delay As of 03/25, the site looked worse thus the G tube was pulled. Will need to wait for the area to heal prior to inserting a new one On 03/30, there is still erythema and some leakage from the area. Unclear if proper wound care is being applied to this area. On 04/01, the site looks more inflamed. Does not appear to be leakage from NG feeding, but infection on the skin is not improving. on 04/02 - NG tube was pulled bc of tip extruding out of gc fistula site Plan: -appreciate surgical mangement -Start tube feeds per surgical recommendation -G tube support and care
[2018-04-08] MEDS: Chlorhexidine Gluconate 0.12% 15mL Mouthwash MM SCH (20:02)
[2018-04-08] MEDS: Zinc Oxide Ointment 60 gm TP SCH (21:27)
[2018-04-08] MEDS: TPN 8.5%-70% CUSTOM IV SCH (22:32)
[2018-04-09] MEDS: Albuterol/Ipratropium Neb 3 ML AERS HHN SCH ×4 (00:16→19:04)
[2018-04-09] MEDS: INSULIN LISPRO SLIDING SCALE 100 UNITS/ML UNIT SUBQ SCH ×6 (04:17→22:30)
[2018-04-09 04:50] LABS: HEMATOCRIT 40.5 % (41.0-60); HEMOGLOBIN 13.7 gm/dL (12-16); MEAN CELL VOLUME 97.4 fl (81-100); MEAN CORPUSCULAR HEMOGLOBIN 32.8 pg (27.0-31.0); MEAN CORPUSCULAR HGB CONC 33.7 pg (28.0-36.0); MEAN PLATELET VOLUME 10.1 fl; PLATELET COUNT 110 Th/cmm (150-400); RED BLOOD COUNT 4.16 Mil/cmm (3.80-5.10); RED CELL DISTRIBUTION WIDTH 10.7 % (11.5-20.0)
[2018-04-09 04:58] LABS: WHITE BLOOD COUNT 17.9 Th/cmm (4.8-10.8)
[2018-04-09 05:05] LABS: ANION GAP 11.3 (7.0-16.0); BUN - UREA NITROGEN 12 mg/dL (7-25); CALCIUM SERUM 8.3 mg/dL (8.6-10.3); CARBON DIOXIDE 25.6 mEq/L (21.0-31.0); CHLORIDE 103 mEq/L (98-107); CREATININE - SERUM 0.3 mg/dL (0.6-1.2); GFR AFRICAN-AMERICAN > 60.0 ml/min (>90); GFR NON AFRICAN-AMERICAN > 60.0 ml/min; GLUCOSE 168 mg/dL (70-105); MAGNESIUM 1.8 mg/dL (1.9-2.7); PHOSPHOROUS 2.9 mg/dL (2.5-5.0); POTASSIUM SERUM 3.9 mEq/L (3.5-5.1); SODIUM SERUM 136 mEq/L (136-145)
[2018-04-09] MEDS: Metoprolol tartrate 1 mg/ml 5mL Amp IV SCH ×4 (05:57→23:45)
[2018-04-09 06:36] LABS: BAND NEUTROPHILE 1 % (0-10); LYMPHOCYTE 10 % (20-50); MONOCYTE 6 % (2-10); NEUTROPHILS 82 % (40-80)
[2018-04-09 06:37] LABS: EOSINOPHIL 1 % (0-5)
[2018-04-09] MEDS: Chlorhexidine Gluconate 0.12% 15mL Mouthwash MM SCH ×2 (08:00→20:36)
--- NOTE | 2018-04-09 09:47 | Consultation ---
DATE OF CONSULTATION: 04/08/2018 REFERRING PHYSICIAN: Dr. Loaiza. Thank you very much for this consultation. HISTORY OF PRESENT ILLNESS: This is a 62-year-old female who underwent abdominal surgery for bowel obstruction and fistula repair and gastrostomy tube. The patient kept on the ventilator postoperatively. The patient is awake, some congestion. No distress. The patient has underlying history of mental disability and bedridden. PHYSICAL EXAMINATION: VITAL SIGNS: Temperature 98.4, pulse 90, respirations 20, blood pressure 162/85, saturation 100%. HEENT: Atraumatic, normocephalic. Pupils react to light and accommodation. Ears, nose and throat normal. NECK: Supple. No JVD. CHEST: There are good breath sounds, few rhonchi. HEART: Regular rate and rhythm. ABDOMEN: Soft. EXTREMITIES: No edema. LABORATORY DATA: WBC 7.8, hemoglobin 13.7, platelets is 200. ABGs shows pH 7.40, ____ . Sodium 140, potassium 4.3, BUN 16, creatinine 0.4. IMPRESSION: 1. Respiratory failure, postoperatively on the ventilator. 2. Status post abdominal surgery and fistula repair and gastrostomy. PLAN: 1. Add nebulizer. 2. Start weaning and hopefully can extubate soon. Thank you very much for this consultation. We will follow the patient with you. JOB# [id number]
--- NOTE | 2018-04-09 09:55 | Diagnostic Imaging Report ---
CHEST X-RAY: AP view INDICATION: Shortness of breath COMPARISON: 04/08/2018 FINDINGS: ET tube is seen similar positioning as prior exam with tip just above the miles. Suboptimal lung volumes are noted with increased left basal lung markings. Left-sided PICC line is stable with tip in the right atrium. IMPRESSION: ET tube is seen on prior exam, just above the miles. Consider mild pullback. Suboptimal lung volumes with increased left basal lung markings favoring atelectatic changes. Infiltrate is less likely.
[2018-04-09] MEDS ORDERED: DEXTROSE IV SCH (10:15)
[2018-04-09] MEDS ORDERED: [UNRECOGNIZED DRUG - OTHER] IV SCH (10:15)
[2018-04-09] MEDS ORDERED: TRACE ELEMENT IV SCH (10:15)
[2018-04-09] MEDS ORDERED: MULTIVITAMIN IV SCH (10:15)
[2018-04-09] MEDS: Ciprofloxacin 400mg Premix PB 400 MG/200 ML BAG IV SCH ×2 (10:31→21:00)
[2018-04-09] MEDS: Morphine Sulfate 2 mg/mL 1mL Syr IVP PRN ×3 (10:39→20:59)
[2018-04-09] MEDS: Docusate Sodium 100 mg/10 mL UD GT SCH ×2 (10:52→19:08)
[2018-04-09] MEDS: Calcium Carb/Vit D 500 mg/200 U Tab GT SCH ×2 (10:58→19:08)
[2018-04-09] MEDS: carBAMazepine 200 mg/10 mL UDC GT SCH ×2 (10:59→20:36)
[2018-04-09] MEDS: Lactobacillus Rhamnosus GG 15 Billion CFU CAP.SPRINK PO SCH (11:00)
--- NOTE | 2018-04-09 14:29 | General Progress Note ---
Subjective - Review of Systems Service Date: 04/09/18 Subjective: Patient postoperatively on Ventilator Motor vehicle Objective - Results Result Diagrams: 04/09/18 04:10 04/09/18 04:10 Recent Labs: Laboratory Last Values WBC 17.9 Th/cmm (4.8-10.8) H D 04/09/18 04:10 RBC 4.16 Mil/cmm (3.80-5.10) 04/09/18 04:10 Hgb 13.7 gm/dL (12-16) 04/09/18 04:10 Hct 40.5 % (41.0-60) L 04/09/18 04:10 MCV 97.4 fl (81-100) 04/09/18 04:10 MCH 32.8 pg (27.0-31.0) H 04/09/18 04:10 MCHC Differential 33.7 pg (28.0-36.0) 04/09/18 04:10 RDW 10.7 % (11.5-20.0) L 04/09/18 04:10 Plt Count 110 Th/cmm (150-400) L D 04/09/18 04:10 MPV 10.1 fl 04/09/18 04:10 Add Manual Diff YES 04/09/18 04:10 Neutrophils % HAT BODY INSPECTOR 04/09/18 04:10 Band Neutrophils % 1 % (0-10) 04/09/18 04:10 Lymphocytes % HAT BODY INSPECTOR 04/09/18 04:10 Monocytes % HAT BODY INSPECTOR 04/09/18 04:10 Eosinophils % HAT BODY INSPECTOR 04/09/18 04:10 Basophils % HAT BODY INSPECTOR 04/09/18 04:10 Neutrophils (Manual) 82 % (40-80) H 04/09/18 04:10 Lymphocytes 10 % (20-50) L 04/09/18 04:10 Monocytes 6 % (2-10) 04/09/18 04:10 Eosinophils 1 % (0-5) 04/09/18 04:10 ESR 41 mm/hr (0-30) H 03/22/18 04:50 PT 10.6 SECONDS (9.5-11.5) 04/08/18 05:30 INR 1.02 (0.5-1.4) 04/08/18 05:30 Specimen Source aterial 04/08/18 14:05 Sample Site left Radial 04/08/18 14:05 pH 7.40 (7.35-7.45) 04/08/18 14:05 pCO2 36.6 mmHg (35.0-45.0) 04/08/18 14:05 pO2 244.2 mmHg (80.0-100.0) H 04/08/18 14:05 HCO3 22.0 mEq/L (20.0-26.0) 04/08/18 14:05 Base Excess -2.3 mEq/L (-3.0-3.0) 04/08/18 14:05 O2 Saturation 99.6 % (92.0-100.0) 04/08/18 14:05 Herman Test pos 04/08/18 14:05 Vent Rate 10 04/08/18 14:05 Inspired O2 50 04/08/18 14:05 Tidal Volume 600 04/08/18 14:05 PEEP n/a 04/08/18 14:05 Pressure (ins/psv/peep) n/a 04/08/18 14:05 Critical Value dvassel 04/08/18 14:05 Sodium 136 mEq/L (136-145) 04/09/18 04:10 Potassium 3.9 mEq/L (3.5-5.1) 04/09/18 04:10 Chloride 103 mEq/L (98-107) 04/09/18 04:10 Carbon Dioxide 25.6 mEq/L (21.0-31.0) 04/09/18 04:10 Anion Gap 11.3 (7.0-16.0) 04/09/18 04:10 BUN 12 mg/dL (7-25) 04/09/18 04:10 Creatinine 0.3 mg/dL (0.6-1.2) L 04/09/18 04:10 Est GFR ( Amer) > 60.0 ml/min (>90) 04/09/18 04:10 Est GFR (Non-Af Amer) > 60.0 ml/min 04/09/18 04:10 BUN/Creatinine Ratio 40.0 04/09/18 04:10 Glucose 168 mg/dL (70-105) H 04/09/18 04:10 POC Glucose 196 MG/DL (70 - 105) H 04/09/18 10:48 Whole Bld Lactic Acid 1.20 mmol/L (0.60-1.99) 03/20/18 19:15 Calcium 8.3 mg/dL (8.6-10.3) L 04/09/18 04:10 Phosphorus 2.9 mg/dL (2.5-5.0) 04/09/18 04:10 Magnesium 1.8 mg/dL (1.9-2.7) L 04/09/18 04:10 Total Bilirubin 0.4 mg/dL (0.3-1.0) 04/05/18 04:35 Direct Bilirubin 0.47 mg/dL (0.0-0.2) H 03/29/18 04:35 AST 36 U/L (13-39) 04/05/18 04:35 ALT 38 U/L (7-52) 04/05/18 04:35 Alkaline Phosphatase 85 U/L (34-104) 04/05/18 04:35 C-Reactive Protein < 0.2 mg/dL (0.0-0.9) 03/22/18 04:50 Total Protein 6.8 gm/dL (6.0-8.3) 04/05/18 04:35 Albumin 3.2 gm/dL (3.7-5.3) L 04/05/18 04:35 Globulin 3.6 gm/dL 04/05/18 04:35 Albumin/Globulin Ratio 0.9 (1.0-1.8) L 04/05/18 04:35 Prealbumin 13 mg/dL (10-36) 04/05/18 04:35 Triglycerides 109 mg/dL (<150) 04/05/18 04:35 Cholesterol 143 mg/dL (<200) 04/05/18 04:35 LDL Cholesterol Direct 87 mg/dL (75-193) 03/21/18 04:45 HDL Cholesterol 65 mg/dL (23-92) 03/21/18 04:45 TSH 1.11 uIU/ml (0.34-5.60) 03/21/18 04:45 Vancomycin Trough 14.4 ug/mL (5-10) H 03/24/18 20:28 - Physical Exam Vitals and I&O: Vital Signs Temp 98.1 F 04/09/18 08:00 Pulse 109 04/09/18 12:49 Resp 17 04/09/18 12:49 BP 152/87 04/09/18 12:21 Pulse Ox 100 04/09/18 12:49 Intake & Output 04/08/18 04/09/18 04/09/18 18:59 06:59 18:59 Intake Total 2105 1005 900 Balance 2105 1005 900 Weight (lbs) 44.906 kg 39.871 kg 36.968 kg Intake: Intake, IV Amount 2105 305 Ciprofloxacin 400mg 200 200 Premix PB 400 mg In 200 ml @ 200 mls/hr IV Q12HR [facility] Rx#:[id number] Levetiracetam 500 mg In 105 105 Sodium Chloride 0.9% 100 ml @ 400 mls/hr IV Q12H [facility] Rx#:[id number] Multivitamin Inj 10 ml 1800 Trace Element 1 ml Sodium Chloride 45 meq Sodium Phosphate 33 mmole Magnesium Sulfate 12 meq Potassium Acetate 39 meq Calcium Gluconate 2 gm Potassium Chloride 40 meq In Dextrose 70% 48.2944 ml In Amino Acids 8.5% 500 ml In Intralipids 20% 250 ml In Water, Sterile 906 ml @ 75 mls/hr IV . Q24H [facility] Rx#:[id number] TPN/PPN 600 900 Other 100 Other: # Voids 1 3 3 # Bowel Movements 0 0 0 Weight Source Bedscale Bedscale Bedscale Active Medications: Current Medications Acetaminophen (Tylenol 650mg/20.3ml Suspension) 650 mg GT Q4HR PRN PRN Reason: Pain Or Fever >100 Stop: 05/20/18 10:46 Albuterol/Ipratropium (Duoneb Neb) 3 ml HHN [id number] PRN PRN Reason: sob Stop: 05/20/18 10:46 Last Admin: 04/08/18 14:39 Dose: 3 ml Albuterol/Ipratropium (Duoneb Neb) 3 ml HHN Q6HRT [facility] Stop: 06/07/18 18:59 Last Admin: 04/09/18 12:49 Dose: 3 ml Bisacodyl (Dulcolax 10 Mg Supp) 10 mg RC Q96H PRN PRN Reason: Constipation Stop: 05/20/18 10:46 Last Admin: 03/22/18 19:42 Dose: 10 mg Calcium/Vitamin D (Oscal W/Vitamin D) 2 tab GT BID [facility] Stop: 05/31/18 08:59 Last Admin: 04/09/18 10:58 Dose: Not Given Carbamazepine (Tegretol) 400 mg GT Q12HR@0900,2100 [facility] Stop: 05/20/18 10:59 Last Admin: 04/09/18 10:59 Dose: Not Given Chlorhexidine Gluconate (Peridex) 15 ml MM 0800,2000 [facility] Stop: 06/07/18 19:59 Last Admin: 04/09/18 08:00 Dose: 15 ml Docusate Sodium (Colace) 200 mg GT BID [facility] Stop: 05/20/18 10:59 Last Admin: 04/09/18 10:52 Dose: Not Given Hydralazine HCl (Apresoline 20 Mg/Ml) 20 mg IV Q6HR PRN PRN Reason: SBP>160 Stop: 05/23/18 13:11 Levetiracetam 500 mg/ Sodium (Chloride) 105 mls @ 400 mls/hr IV Q12H [facility] Stop: 05/21/18 22:59 Last Admin: 04/09/18 12:20 Dose: 400 mls/hr Ciprofloxacin (Cipro 400mg Premix Pb) 400 mg in 200 mls @ 200 mls/hr IV Q12HR [facility] Stop: 06/01/18 20:59 Last Admin: 04/09/18 10:31 Dose: 200 mls/hr Multivitamins/Minerals 10 ml/Chromium/Copper/Manganese/Zinc 1 ml/ Dextrose/ Amino Acids/Electrolytes/ Fat Emulsion Intravenous 1,800 mls @ 75 mls/hr IV .Q24H [facility] Stop: 06/08/18 10:14 Insulin Human Lispro (Humalog Insulin Sliding Scale) 0 units SUBQ Q6H [facility]; Protocol Stop: 05/22/18 15:59 Last Admin: 04/09/18 10:57 Dose: 2 units Lactobacillus Rhamnosus (Culturelle 15b) 1 each PO DAILY [facility] Stop: 05/25/18 08:59 Last Admin: 04/09/18 11:00 Dose: Not Given Lactulose (Cephulac) 10 gm GT DAILY PRN PRN Reason: Constipation Last Admin: 03/22/18 13:47 Dose: 10 gm Magnesium Hydroxide (Milk Of Magnesia) 30 ml GT Q72H PRN PRN Reason: Constipation Stop: 05/20/18 10:48 Metoprolol Tartrate (Lopressor) 5 mg IV Q6HR [facility] Stop: 06/07/18 17:59 Last Admin: 04/09/18 12:21 Dose: 5 mg Miscellaneous (Probiotic Screen) 1 ea MC PRN PRN PRN Reason: PROTOCOL Stop: 05/24/18 17:10 Miscellaneous (Tpn Per Pharmacy) 1 ea MC PRN PRN PRN Reason: PROTOCOL Stop: 06/08/18 10:25 Morphine Sulfate (Morphine) 1 mg IVP Q4HR PRN PRN Reason: Pain (Moderate) Stop: 06/07/18 17:30 Last Admin: 04/09/18 10:39 Dose: 1 mg Nystatin/Triamcinolone Acetonide (Mycolog Ii Cream) 1 appl TP BID [facility] Stop: 06/06/18 10:29 Last Admin: 04/09/18 11:00 Dose: 1 appl Petrolatum (Zinc Oxide) 1 appl TP HS [facility] Stop: 05/21/18 20:59 Last Admin: 04/08/18 21:27 Dose: Not Given Sodium Phosphate (Fleet Enema) 135 ml RC Q96H PRN PRN Reason: IF DULCOLAX INEFFECTIVE Stop: 05/20/18 10:46 General: Alert, Mild distress HEENT: Atraumatic, Mucous membr. moist/pink Neck: Supple, JVD, +2 carotid pulse wo bruit (flat) Cardiovascular: Regular rate, Normal S1, Normal S2, Systolic murmurs, Other ( tachycardia) Lungs: Clear to auscultation, Other (wheezing and rhonchi) Abdomen: Bowel sounds, Soft, Other (hypoactive bowel sounds G-tube placed), no Tender, no Distended, no Rebound, no Mass, no Guarding Extremities: Pulses (normal), Other (contractures of the upper extremities), no Edema Neurological: Sensation intact Skin: Rash Psych/Mental Status: Mood NL - Procedures Procedures: Procedures Procedure Code Date ASPIR CURETT UTERUS NEC 69.59 06/12/11 CHANGE FEEDING DEVICE IN UP INTEST TRACT, IMPLEMENTATION SERVICES ANALYST APPROACH [id number] 01/27/16 CHANGE GASTROSTOMY TUBE 18566 05/21/15 DILATION AND CURETTAGE 67952 06/12/11 EGD BIOPSY SINGLE/MULTIPLE 07043 07/15/16 EXCISION OF ABD SUBCU/FASCIA, OPEN APPROACH [id number] 03/20/18 EXCISION OF ABDOMINAL WALL, OPEN APPROACH [id number] 03/20/18 EXCISION OF STOMACH, ENDO, DIAGN [id number] 07/15/16 EXCISION OF STOMACH, OPEN APPROACH [id number] 03/20/18 INSERTION OF FEEDING DEVICE INTO STOMACH, ENDO [id number] 07/15/16 INSERTION OF FEEDING DEVICE INTO STOMACH, OPEN APPROACH [id number] 03/20/18 LAP[facility]O PROC ABDM/PER/OMENT 87973 07/29/13 LAPAROSCOP APPENDECTOMY 47.01 07/29/13 LAPAROSCOP LYSIS-PERITONEAL ADHES 54.51 07/29/13 LAPAROSCOPY APPENDECTOMY 75213 07/29/13 RELEASE OMENTUM, OPEN APPROACH [id number] 03/20/18 REPLACE GASTROSTOMY TUBE 97.02 07/26/14 Assessment/Plan - Assessment Assessment: G-tube cellulitis Gastrocutaneous fistula Hypernatremia Contractures both upper and lower extremity Protein calorie malnutrition Dementia Cholelithiasis Osteoporosis Patient had surgery laparotomy lysis of adhesion gastrocutaneous fistula and G- tube placement Hypertension Sinus tachycardia - Plan Plan: Patient on ventilator Lopressor 5 mg IV every 6 hours to control blood pressure and her heart rate Nutritional Asmnt/Malnutr-PDOC - Dietary Evaluation Malnutrition Findings (Please click <Entered> for more info): Nutritional Asmnt/Malnutrition Start: 03/21/18 13: 29 Text: Status: Complete Freq: Protocol: Document 03/21/18 13:29 LCHENG (Rec: 03/21/18 13:45 LCHENG [email or web address]) Nutritional Asmnt/Malnutrition Patient General Information Nutritional Screening High Risk Consult Diagnosis displacement of Gtube, Gtube site cellulitis Pertinent Medical Hx/Surgical Hx HTN, PUD?GERD, seizures, hepatitis B and C, developmentally disabled, quadriplegic Subjective Information Consult reiceved for shayna score 11. Pt seen in bed, non verbal noted. Per nurse pt is tolerating current tube feeding. CALEB Rdz asked about TF rate since pt was receiving Jevity 1.5 at assisted and our hospital only carries Jevity 1.2. Current Diet Order/ Nutrition Support Jevity 1.2 at 40ml/hr x 20hr, providing 960kcal and 44g protein Pertinent Medications oscal w/vit D, colace, nacl 0. 9%, vancomycin Pertinent Labs / Cl 108, Cr 0.4 2/3 Cr 0.4, glucose 109, alb 3 .6 Nutritional Hx/Data Height 1.6 m Height (Calculated Centimeters) 160.0 Current Weight (lbs) 45.359 kg Weight (Calculated Kilograms) 45.4 Weight (Calculated Grams) 15223.2 [place] Body Weight 115 Body Mass Index (BMI) 17.6 Weight Status Underweight GI Symptoms GI Symptoms None Last BM not indicated Usual diet at home Jevity 1.5 at 40ml/hr x 20hr at [facility] Skin Integrity/Comment: cellulitis reddened to Gtube site shayna 11 Estimated Nutritional Goals Calories/Kcals/Kg 25-30 IBW 52kg Kcals Calculated 6348-0836 Protein g/k-1.2 Protein Calculated 52-62 Fluid: ml 1300-1560ml (1ml/kcal) Nutritional Problem 1. Problem Problem inadequate intake from enteral feeding Etiology current TF regimen not meeting nutritional needs Signs/Symptoms: current TF providing 960kcal and 44g protein Malnutrition Related to Morbid Obesity Malnutrition related to morbid obesity No Intervention/Recommendation Comments 1. Recommend to increase TF rate to Jevity 1.2 at 55ml/hr x 20hr. It provides 1320kcal, 61g protein, 888ml free water, meeting 100% of nutritional needs. RN Kajal notified. 2. Monitor TF rate, tolerance, wt, skin integrity and labs 3. F/U as high risk in 2-3 days, 2/5-2/6 Expected Outcomes/Goals Expected Outcomes/Goals 1. Pt to meet at least 90% of nutritional needs via nutrition support with tolerance 2. Wt stability, skin to remain intact, labs to approach WNL.
[2018-04-09 15:38] LABS: PaCO2 33.7 mmHg (35.0-45.0); pH 7.45 (7.35-7.45)
[2018-04-09 15:39] LABS: ALLEN TEST pos
--- NOTE | 2018-04-09 16:02 | General Progress Note ---
Subjective - Review of Systems Service Date: 04/09/18 Subjective: alert, nonverbal, just extubated Objective - Results Result Diagrams: 04/09/18 04:10 04/09/18 04:10 Recent Labs: Laboratory Last Values WBC 17.9 Th/cmm (4.8-10.8) H D 04/09/18 04:10 RBC 4.16 Mil/cmm (3.80-5.10) 04/09/18 04:10 Hgb 13.7 gm/dL (12-16) 04/09/18 04:10 Hct 40.5 % (41.0-60) L 04/09/18 04:10 MCV 97.4 fl (81-100) 04/09/18 04:10 MCH 32.8 pg (27.0-31.0) H 04/09/18 04:10 MCHC Differential 33.7 pg (28.0-36.0) 04/09/18 04:10 RDW 10.7 % (11.5-20.0) L 04/09/18 04:10 Plt Count 110 Th/cmm (150-400) L D 04/09/18 04:10 MPV 10.1 fl 04/09/18 04:10 Add Manual Diff YES 04/09/18 04:10 Neutrophils % RATINGS ANALYST 04/09/18 04:10 Band Neutrophils % 1 % (0-10) 04/09/18 04:10 Lymphocytes % RATINGS ANALYST 04/09/18 04:10 Monocytes % RATINGS ANALYST 04/09/18 04:10 Eosinophils % RATINGS ANALYST 04/09/18 04:10 Basophils % RATINGS ANALYST 04/09/18 04:10 Neutrophils (Manual) 82 % (40-80) H 04/09/18 04:10 Lymphocytes 10 % (20-50) L 04/09/18 04:10 Monocytes 6 % (2-10) 04/09/18 04:10 Eosinophils 1 % (0-5) 04/09/18 04:10 ESR 41 mm/hr (0-30) H 03/22/18 04:50 PT 10.6 SECONDS (9.5-11.5) 04/08/18 05:30 INR 1.02 (0.5-1.4) 04/08/18 05:30 Specimen Source art 04/09/18 14:57 Sample Site Left Radial 04/09/18 14:57 pH 7.45 (7.35-7.45) 04/09/18 14:57 pCO2 33.7 mmHg (35.0-45.0) L 04/09/18 14:57 pO2 104.0 mmHg (80.0-100.0) H 04/09/18 14:57 HCO3 22.9 mEq/L (20.0-26.0) 04/09/18 14:57 Base Excess -0.3 mEq/L (-3.0-3.0) 04/09/18 14:57 O2 Saturation 98.0 % (92.0-100.0) 04/09/18 14:57 Herman Test pos 04/09/18 14:57 Vent Rate na 04/09/18 14:57 Inspired O2 30 04/09/18 14:57 Tidal Volume na 04/09/18 14:57 PEEP na 04/09/18 14:57 Pressure (ins/psv/peep) na 04/09/18 14:57 Critical Value RNinofranco 04/09/18 14:57 Sodium 136 mEq/L (136-145) 04/09/18 04:10 Potassium 3.9 mEq/L (3.5-5.1) 04/09/18 04:10 Chloride 103 mEq/L (98-107) 04/09/18 04:10 Carbon Dioxide 25.6 mEq/L (21.0-31.0) 04/09/18 04:10 Anion Gap 11.3 (7.0-16.0) 04/09/18 04:10 BUN 12 mg/dL (7-25) 04/09/18 04:10 Creatinine 0.3 mg/dL (0.6-1.2) L 04/09/18 04:10 Est GFR ( Amer) > 60.0 ml/min (>90) 04/09/18 04:10 Est GFR (Non-Af Amer) > 60.0 ml/min 04/09/18 04:10 BUN/Creatinine Ratio 40.0 04/09/18 04:10 Glucose 168 mg/dL (70-105) H 04/09/18 04:10 POC Glucose 196 MG/DL (70 - 105) H 04/09/18 10:48 Whole Bld Lactic Acid 1.20 mmol/L (0.60-1.99) 03/20/18 19:15 Calcium 8.3 mg/dL (8.6-10.3) L 04/09/18 04:10 Phosphorus 2.9 mg/dL (2.5-5.0) 04/09/18 04:10 Magnesium 1.8 mg/dL (1.9-2.7) L 04/09/18 04:10 Total Bilirubin 0.4 mg/dL (0.3-1.0) 04/05/18 04:35 Direct Bilirubin 0.47 mg/dL (0.0-0.2) H 03/29/18 04:35 AST 36 U/L (13-39) 04/05/18 04:35 ALT 38 U/L (7-52) 04/05/18 04:35 Alkaline Phosphatase 85 U/L (34-104) 04/05/18 04:35 C-Reactive Protein < 0.2 mg/dL (0.0-0.9) 03/22/18 04:50 Total Protein 6.8 gm/dL (6.0-8.3) 04/05/18 04:35 Albumin 3.2 gm/dL (3.7-5.3) L 04/05/18 04:35 Globulin 3.6 gm/dL 04/05/18 04:35 Albumin/Globulin Ratio 0.9 (1.0-1.8) L 04/05/18 04:35 Prealbumin 13 mg/dL (10-36) 04/05/18 04:35 Triglycerides 109 mg/dL (<150) 04/05/18 04:35 Cholesterol 143 mg/dL (<200) 04/05/18 04:35 LDL Cholesterol Direct 87 mg/dL (75-193) 03/21/18 04:45 HDL Cholesterol 65 mg/dL (23-92) 03/21/18 04:45 TSH 1.11 uIU/ml (0.34-5.60) 03/21/18 04:45 Vancomycin Trough 14.4 ug/mL (5-10) H 03/24/18 20:28 - Physical Exam Vitals and I&O: Vital Signs Temp 98.1 F 04/09/18 08:00 Pulse 109 04/09/18 12:49 Resp 17 04/09/18 12:49 BP 152/87 04/09/18 12:21 Pulse Ox 100 04/09/18 14:00 Intake & Output 04/08/18 04/09/18 04/09/18 18:59 06:59 18:59 Intake Total 2105 1005 900 Balance 2105 1005 900 Weight (lbs) 44.906 kg 39.871 kg 36.968 kg Intake: Intake, IV Amount 2105 305 Ciprofloxacin 400mg 200 200 Premix PB 400 mg In 200 ml @ 200 mls/hr IV Q12HR [facility] Rx#:[id number] Levetiracetam 500 mg In 105 105 Sodium Chloride 0.9% 100 ml @ 400 mls/hr IV Q12H [facility] Rx#:[id number] Multivitamin Inj 10 ml 1800 Trace Element 1 ml Sodium Chloride 45 meq Sodium Phosphate 33 mmole Magnesium Sulfate 12 meq Potassium Acetate 39 meq Calcium Gluconate 2 gm Potassium Chloride 40 meq In Dextrose 70% 48.2944 ml In Amino Acids 8.5% 500 ml In Intralipids 20% 250 ml In Water, Sterile 906 ml @ 75 mls/hr IV . Q24H [facility] Rx#:[id number] TPN/PPN 600 900 Other 100 Other: # Voids 1 3 3 # Bowel Movements 0 0 0 Weight Source Bedscale Bedscale Bedscale Active Medications: Current Medications Acetaminophen (Tylenol 650mg/20.3ml Suspension) 650 mg GT Q4HR PRN PRN Reason: Pain Or Fever >100 Stop: 05/20/18 10:46 Albuterol/Ipratropium (Duoneb Neb) 3 ml HHN [id number] PRN PRN Reason: sob Stop: 05/20/18 10:46 Last Admin: 04/08/18 14:39 Dose: 3 ml Albuterol/Ipratropium (Duoneb Neb) 3 ml HHN Q6HRT [facility] Stop: 06/07/18 18:59 Last Admin: 04/09/18 12:49 Dose: 3 ml Bisacodyl (Dulcolax 10 Mg Supp) 10 mg RC Q96H PRN PRN Reason: Constipation Stop: 05/20/18 10:46 Last Admin: 03/22/18 19:42 Dose: 10 mg Calcium/Vitamin D (Oscal W/Vitamin D) 2 tab GT BID [facility] Stop: 05/31/18 08:59 Last Admin: 02/23/19 10:58 Dose: Not Given Carbamazepine (Tegretol) 400 mg GT Q12HR@0900,2100 [facility] Stop: 05/20/18 10:59 Last Admin: 04/09/18 10:59 Dose: Not Given Chlorhexidine Gluconate (Peridex) 15 ml MM 0800,2000 [facility] Stop: 06/07/18 19:59 Last Admin: 04/09/18 08:00 Dose: 15 ml Docusate Sodium (Colace) 200 mg GT BID [facility] Stop: 05/20/18 10:59 Last Admin: 04/09/18 10:52 Dose: Not Given Hydralazine HCl (Apresoline 20 Mg/Ml) 20 mg IV Q6HR PRN PRN Reason: SBP>160 Stop: 05/23/18 13:11 Levetiracetam 500 mg/ Sodium (Chloride) 105 mls @ 400 mls/hr IV Q12H [facility] Stop: 05/21/18 22:59 Last Admin: 04/09/18 12:20 Dose: 400 mls/hr Ciprofloxacin (Cipro 400mg Premix Pb) 400 mg in 200 mls @ 200 mls/hr IV Q12HR [facility] Stop: 06/01/18 20:59 Last Admin: 04/09/18 10:31 Dose: 200 mls/hr Multivitamins/Minerals 10 ml/Chromium/Copper/Manganese/Zinc 1 ml/ Dextrose/ Amino Acids/Electrolytes/ Fat Emulsion Intravenous 1,800 mls @ 75 mls/hr IV .Q24H [facility] Stop: 06/08/18 10:14 Insulin Human Lispro (Humalog Insulin Sliding Scale) 0 units SUBQ Q6H [facility]; Protocol Stop: 05/22/18 15:59 Last Admin: 04/09/18 10:57 Dose: 2 units Lactobacillus Rhamnosus (Culturelle 15b) 1 each PO DAILY [facility] Stop: 05/25/18 08:59 Last Admin: 04/09/18 11:00 Dose: Not Given Lactulose (Cephulac) 10 gm GT DAILY PRN PRN Reason: Constipation Last Admin: 03/22/18 13:47 Dose: 10 gm Magnesium Hydroxide (Milk Of Magnesia) 30 ml GT Q72H PRN PRN Reason: Constipation Stop: 05/20/18 10:48 Metoprolol Tartrate (Lopressor) 5 mg IV Q6HR [facility] Stop: 06/07/18 17:59 Last Admin: 04/09/18 12:21 Dose: 5 mg Miscellaneous (Probiotic Screen) 1 ea MC PRN PRN PRN Reason: PROTOCOL Stop: 05/24/18 17:10 Miscellaneous (Tpn Per Pharmacy) 1 ea MC PRN PRN PRN Reason: PROTOCOL Stop: 06/08/18 10:25 Morphine Sulfate (Morphine) 1 mg IVP Q4HR PRN PRN Reason: Pain (Moderate) Stop: 06/07/18 17:30 Last Admin: 04/09/18 10:39 Dose: 1 mg Nystatin/Triamcinolone Acetonide (Mycolog Ii Cream) 1 appl TP BID [facility] Stop: 06/06/18 10:29 Last Admin: 04/09/18 11:00 Dose: 1 appl Petrolatum (Zinc Oxide) 1 appl TP HS [facility] Stop: 05/21/18 20:59 Last Admin: 04/08/18 21:27 Dose: Not Given Sodium Phosphate (Fleet Enema) 135 ml RC Q96H PRN PRN Reason: IF DULCOLAX INEFFECTIVE Stop: 05/20/18 10:46 General: Alert, No acute distress HEENT: Atraumatic, Mucous membr. moist/pink Neck: Supple, JVD, +2 carotid pulse wo bruit (flat) Cardiovascular: Regular rate, Normal S1, Normal S2, Systolic murmurs, Other ( tachycardia) Lungs: Clear to auscultation, Other (wheezing and rhonchi) Abdomen: Bowel sounds, Soft, Other (hypoactive bowel sounds G-tube placed), no Tender, no Distended, no Rebound, no Mass, no Guarding Extremities: Pulses (normal), Other (contractures of the upper extremities), no Edema Neurological: Sensation intact Skin: Rash Psych/Mental Status: Mood NL - Procedures Procedures: Procedures Procedure Code Date ASPIR CURETT UTERUS NEC 69.59 06/12/11 CHANGE FEEDING DEVICE IN UP INTEST TRACT, [employer]ER[employer] APPROACH [id number] 01/27/16 CHANGE GASTROSTOMY TUBE 63021 05/21/15 DILATION AND CURETTAGE 17525 06/12/11 EGD BIOPSY SINGLE/MULTIPLE 56593 07/15/16 EXCISION OF ABD SUBCU/FASCIA, OPEN APPROACH [id number] 03/20/18 EXCISION OF ABDOMINAL WALL, OPEN APPROACH [id number] 03/20/18 EXCISION OF STOMACH, ENDO, DIAGN [id number] 07/15/16 EXCISION OF STOMACH, OPEN APPROACH [id number] 03/20/18 INSERTION OF FEEDING DEVICE INTO STOMACH, ENDO [id number] 07/15/16 INSERTION OF FEEDING DEVICE INTO STOMACH, OPEN APPROACH [id number] 03/20/18 LAPARO PROC ABDM/PER/OMENT 59170 07/29/13 LAPAROSCOP APPENDECTOMY 47.01 07/29/13 LAPAROSCOP LYSIS-PERITONEAL ADHES 54.51 07/29/13 LAPAROSCOPY APPENDECTOMY 22086 07/29/13 RELEASE OMENTUM, OPEN APPROACH [id number] 03/20/18 REPLACE GASTROSTOMY TUBE 97.02 07/26/14 Assessment/Plan - Assessment Assessment: 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 site Cellulitis Hyponatremia resolved Constipation Epilepsy Intellectual Disability - Plan Plan: Lab - Result Diagrams 03/24/18 06:00 03/26/18 05:05 Current Medications Acetaminophen (Tylenol 650mg/20.3ml Suspension) 650 mg GT Q4HR PRN PRN Reason: Pain Or Fever >100 Stop: 05/20/18 10:46 Albuterol/Ipratropium (Duoneb Neb) 3 ml HHN [id number] PRN PRN Reason: sob Stop: 05/20/18 10:46 Last Admin: 03/25/18 20:04 Dose: 3 ml Bisacodyl (Dulcolax 10 Mg Supp) 10 mg RC Q96H PRN PRN Reason: Constipation Stop: 05/20/18 10:46 Last Admin: 03/22/18 19:42 Dose: 10 mg Carbamazepine (Tegretol) 400 mg GT Q12HR@0900,2100 [facility] Stop: 05/20/18 10:59 Last Admin: 03/26/18 08:02 Dose: Not Given Docusate Sodium (Colace) 200 mg GT BID [facility] Stop: 05/20/18 10:59 Last Admin: 03/26/18 08:02 Dose: Not Given Hydralazine HCl (Apresoline 20 Mg/Ml) 20 mg IV Q6HR PRN PRN Reason: SBP>160 Stop: 05/23/18 13:11 Levetiracetam 500 mg/ Sodium (Chloride) 105 mls @ 400 mls/hr IV Q12H [facility] Stop: 05/21/18 22:59 Last Admin: 03/26/18 10:16 Dose: 400 mls/hr Ciprofloxacin (Cipro 200mg Premix Pb) 200 mg in 100 mls @ 100 mls/hr IV Q12HR [facility] Stop: 05/23/18 13:29 Last Admin: 03/26/18 08:33 Dose: 100 mls/hr Multivitamins/Minerals 10 ml/Dextrose/ Amino Acids/Electrolytes/ Sterile Water 1,810 mls @ 75 mls/hr IV .Q24H [facility] Stop: 04/23/18 15:59 Last Admin: 03/25/18 15:47 Dose: 75 mls/hr Insulin Aspart (Novolog Insulin Sliding Scale) 0 units SUBQ Q6H [facility]; Protocol Stop: 05/22/18 15:59 Last Admin: 03/26/18 09:22 Dose: Not Given Lactobacillus Rhamnosus (Culturelle 15b) 1 each PO DAILY [facility] Stop: 05/25/18 08:59 Last Admin: 03/26/18 08:02 Dose: Not Given Lactulose (Cephulac) 10 gm GT DAILY PRN PRN Reason: Constipation Last Admin: 03/22/18 13:47 Dose: 10 gm Magnesium Hydroxide (Milk Of Magnesia) 30 ml GT Q72H PRN PRN Reason: Constipation Stop: 05/20/18 10:48 Metoprolol Tartrate (Lopressor) 12.5 mg GT QPM [facility] Stop: 05/20/18 16:59 Last Admin: 03/25/18 16:31 Dose: Not Given Miscellaneous (Ppn Per Pharmacy) 1 ea PRN PRN PRN Reason: PROTOCOL Stop: 05/21/18 14:48 Miscellaneous (Probiotic Screen) 1 ea PRN PRN PRN Reason: PROTOCOL Stop: 05/24/18 17:10 Nystatin (Mycostatin Cream) 1 appl TP DAILY [facility] Stop: 05/22/18 08:59 Last Admin: 03/26/18 08:33 Dose: 1 appl Petrolatum (Zinc Oxide) 1 appl TP HS [facility] Stop: 05/21/18 20:59 Last Admin: 03/25/18 21:06 Dose: 1 appl Sodium Phosphate (Fleet Enema) 135 ml RC Q96H PRN PRN Reason: IF DULCOLAX INEFFECTIVE Stop: 05/20/18 10:46 continue PPN @ 40 ml/hr start feeding @ low rate & titrate maintain on Cipro monitor for fever just extubated, on facemask Nutritional Asmnt/Malnutr-PDOC - Dietary Evaluation Malnutrition Findings (Please click <Entered> for more info): Nutritional Asmnt/Malnutrition Start: 03/21/18 13: 29 Text: Status: Complete Freq: Protocol: Document 03/21/18 13:29 LCHENG (Rec: 03/21/18 13:45 LCHENG [email or web address]) Nutritional Asmnt/Malnutrition Patient General Information Nutritional Screening High Risk Consult Diagnosis displacement of Gtube, Gtube site cellulitis Pertinent Medical Hx/Surgical Hx HTN, PUD?GERD, seizures, hepatitis B and C, developmentally disabled, quadriplegic Subjective Information Consult reiceved for shayna score 11. Pt seen in bed, non verbal noted. Per nurse pt is tolerating current tube feeding. CALEB Rdz asked about TF rate since pt was receiving Jevity 1.5 at [facility] and our hospital only carries Jevity 1.2. Current Diet Order/ Nutrition Support Jevity 1.2 at 40ml/hr x 20hr, providing 960kcal and 44g protein Pertinent Medications oscal w/vit D, colace, nacl 0. 9%, vancomycin Pertinent Labs 2/4 Cl 108, Cr 0.4 2/3 Cr 0.4, glucose 109, alb 3 .6 Nutritional Hx/Data Height 1.6 m Height (Calculated Centimeters) 160.0 Current Weight (lbs) 45.359 kg Weight (Calculated Kilograms) 45.4 Weight (Calculated Grams) 06934.2 [place] Body Weight 115 Body Mass Index (BMI) 17.6 Weight Status Underweight GI Symptoms GI Symptoms None Last BM not indicated Usual diet at home Jevity 1.5 at 40ml/hr x 20hr at [facility] Skin Integrity/Comment: cellulitis reddened to Gtube site shayna 11 Estimated Nutritional Goals Calories/Kcals/Kg 25-30 IBW 52kg Kcals Calculated [id number] Protein g/k-1.2 Protein Calculated 52-62 Fluid: ml 1300-1560ml (1ml/kcal) Nutritional Problem 1. Problem Problem inadequate intake from enteral feeding Etiology current TF regimen not meeting nutritional needs Signs/Symptoms: current TF providing 960kcal and 44g protein Malnutrition Related to Morbid Obesity Malnutrition related to morbid obesity No Intervention/Recommendation Comments 1. Recommend to increase TF rate to Jevity 1.2 at 55ml/hr x 20hr. It provides 1320kcal, 61g protein, 888ml free water, meeting 100% of nutritional needs. RN Kajal notified. 2. Monitor TF rate, tolerance, wt, skin integrity and labs 3. F/U as high risk in 2-3 days, 03/22-2/ Expected Outcomes/Goals Expected Outcomes/Goals 1. Pt to meet at least 90% of nutritional needs via nutrition support with tolerance 2. Wt stability, skin to remain intact, labs to approach WNL.
[2018-04-09] MEDS ORDERED: Mag Sulfate 2gm/50mL Premix 2 GM/50 ML BAG IV ONE (16:03)
[2018-04-09] MEDS ORDERED: Diltiazem 5 mg/mL 5mL Vial IVP STA (20:20)
[2018-04-09] MEDS ORDERED: Diltiazem 5 mg/mL 5mL Vial IVP ONE (20:24)
[2018-04-09] MEDS ORDERED: Diltiazem 5 mg/mL 5mL Vial IVP PRN (21:00)
[2018-04-09] MEDS: Zinc Oxide Ointment 60 gm TP SCH ×2 (21:04→21:06)
--- NOTE | 2018-04-09 23:26 | GI Progress Note ---
Subjective - Review of Systems Service Date: 04/09/18 Subjective: EVENTS NOTED. Objective - Results Result Diagrams: 04/09/18 04:10 04/09/18 04:10 Recent Labs: Laboratory Last Values WBC 17.9 Th/cmm (4.8-10.8) H D 04/09/18 04:10 RBC 4.16 Mil/cmm (3.80-5.10) 04/09/18 04:10 Hgb 13.7 gm/dL (12-16) 04/09/18 04:10 Hct 40.5 % (41.0-60) L 04/09/18 04:10 MCV 97.4 fl (81-100) 04/09/18 04:10 MCH 32.8 pg (27.0-31.0) H 04/09/18 04:10 MCHC Differential 33.7 pg (28.0-36.0) 04/09/18 04:10 RDW 10.7 % (11.5-20.0) L 04/09/18 04:10 Plt Count 110 Th/cmm (150-400) L D 04/09/18 04:10 MPV 10.1 fl 04/09/18 04:10 Add Manual Diff YES 04/09/18 04:10 Neutrophils % PATENT CLERK 04/09/18 04:10 Band Neutrophils % 1 % (0-10) 04/09/18 04:10 Lymphocytes % PATENT CLERK 04/09/18 04:10 Monocytes % PATENT CLERK 04/09/18 04:10 Eosinophils % PATENT CLERK 04/09/18 04:10 Basophils % PATENT CLERK 04/09/18 04:10 Neutrophils (Manual) 82 % (40-80) H 04/09/18 04:10 Lymphocytes 10 % (20-50) L 04/09/18 04:10 Monocytes 6 % (2-10) 04/09/18 04:10 Eosinophils 1 % (0-5) 04/09/18 04:10 ESR 41 mm/hr (0-30) H 03/22/18 04:50 PT 10.6 SECONDS (9.5-11.5) 04/08/18 05:30 INR 1.02 (0.5-1.4) 04/08/18 05:30 Specimen Source art 04/09/18 14:57 Sample Site Left Radial 04/09/18 14:57 pH 7.45 (7.35-7.45) 04/09/18 14:57 pCO2 33.7 mmHg (35.0-45.0) L 04/09/18 14:57 pO2 104.0 mmHg (80.0-100.0) H 04/09/18 14:57 HCO3 22.9 mEq/L (20.0-26.0) 04/09/18 14:57 Base Excess -0.3 mEq/L (-3.0-3.0) 04/09/18 14:57 O2 Saturation 98.0 % (92.0-100.0) 04/09/18 14:57 Herman Test pos 04/09/18 14:57 Vent Rate na 04/09/18 14:57 Inspired O2 30 04/09/18 14:57 Tidal Volume na 04/09/18 14:57 PEEP na 04/09/18 14:57 Pressure (ins/psv/peep) na 04/09/18 14:57 Critical Value RNinofranco 04/09/18 14:57 Sodium 136 mEq/L (136-145) 04/09/18 04:10 Potassium 3.9 mEq/L (3.5-5.1) 04/09/18 04:10 Chloride 103 mEq/L (98-107) 04/09/18 04:10 Carbon Dioxide 25.6 mEq/L (21.0-31.0) 04/09/18 04:10 Anion Gap 11.3 (7.0-16.0) 04/09/18 04:10 BUN 12 mg/dL (7-25) 04/09/18 04:10 Creatinine 0.3 mg/dL (0.6-1.2) L 04/09/18 04:10 Est GFR ( Amer) > 60.0 ml/min (>90) 04/09/18 04:10 Est GFR (Non-Af Amer) > 60.0 ml/min 04/09/18 04:10 BUN/Creatinine Ratio 40.0 04/09/18 04:10 Glucose 168 mg/dL (70-105) H 04/09/18 04:10 POC Glucose 133 MG/DL (70 - 105) H 04/09/18 22:27 Whole Bld Lactic Acid 1.20 mmol/L (0.60-1.99) 03/20/18 19:15 Calcium 8.3 mg/dL (8.6-10.3) L 04/09/18 04:10 Phosphorus 2.9 mg/dL (2.5-5.0) 04/09/18 04:10 Magnesium 1.8 mg/dL (1.9-2.7) L 04/09/18 04:10 Total Bilirubin 0.4 mg/dL (0.3-1.0) 04/05/18 04:35 Direct Bilirubin 0.47 mg/dL (0.0-0.2) H 03/29/18 04:35 AST 36 U/L (13-39) 04/05/18 04:35 ALT 38 U/L (7-52) 04/05/18 04:35 Alkaline Phosphatase 85 U/L (34-104) 04/05/18 04:35 C-Reactive Protein < 0.2 mg/dL (0.0-0.9) 03/22/18 04:50 Total Protein 6.8 gm/dL (6.0-8.3) 04/05/18 04:35 Albumin 3.2 gm/dL (3.7-5.3) L 04/05/18 04:35 Globulin 3.6 gm/dL 04/05/18 04:35 Albumin/Globulin Ratio 0.9 (1.0-1.8) L 04/05/18 04:35 Prealbumin 13 mg/dL (10-36) 04/05/18 04:35 Triglycerides 109 mg/dL (<150) 04/05/18 04:35 Cholesterol 143 mg/dL (<200) 04/05/18 04:35 LDL Cholesterol Direct 87 mg/dL (75-193) 03/21/18 04:45 HDL Cholesterol 65 mg/dL (23-92) 03/21/18 04:45 TSH 1.11 uIU/ml (0.34-5.60) 03/21/18 04:45 Vancomycin Trough 14.4 ug/mL (5-10) H 03/24/18 20:28 - Physical Exam Vitals and I&O: Vital Signs Temp 98.6 F 04/09/18 16:00 Pulse 140 04/09/18 20:24 Resp 20 04/09/18 19:05 BP 160/80 04/09/18 19:00 Pulse Ox 100 04/09/18 20:00 Intake & Output 04/09/18 04/09/18 04/10/18 06:59 18:59 06:59 Intake Total 1005 1205 1300 Balance 1005 1205 1300 Weight (lbs) 39.871 kg 36.968 kg 39.599 kg Intake: Intake, IV Amount 305 305 Ciprofloxacin 400mg 200 200 Premix PB 400 mg In 200 ml @ 200 mls/hr IV Q12HR [facility] Rx#:[id number] Levetiracetam 500 mg In 105 105 Sodium Chloride 0.9% 100 ml @ 400 mls/hr IV Q12H [facility] Rx#:[id number] TPN/PPN 600 900 900 Other 100 400 Other: # Voids 3 3 4 # Bowel Movements 0 0 Weight Source Bedscale Bedscale Bedscale Active Medications: Current Medications Acetaminophen (Tylenol 650mg/20.3ml Suspension) 650 mg GT Q4HR PRN PRN Reason: Pain Or Fever >100 Stop: 05/20/18 10:46 Albuterol/Ipratropium (Duoneb Neb) 3 ml HHN [id number] PRN PRN Reason: sob Stop: 05/20/18 10:46 Last Admin: 04/08/18 14:39 Dose: 3 ml Albuterol/Ipratropium (Duoneb Neb) 3 ml HHN Q6HRT [facility] Stop: 06/07/18 18:59 Last Admin: 04/09/18 19:04 Dose: 3 ml Bisacodyl (Dulcolax 10 Mg Supp) 10 mg RC Q96H PRN PRN Reason: Constipation Stop: 05/20/18 10:46 Last Admin: 03/22/18 19:42 Dose: 10 mg Calcium/Vitamin D (Oscal W/Vitamin D) 2 tab GT BID [facility] Stop: 05/31/18 08:59 Last Admin: 04/09/18 19:08 Dose: Not Given Carbamazepine (Tegretol) 400 mg GT Q12HR@0900,2100 [facility] Stop: 05/20/18 10:59 Last Admin: 04/09/18 20:36 Dose: Not Given Chlorhexidine Gluconate (Peridex) 15 ml MM 0800,2000 [facility] Stop: 06/07/18 19:59 Last Admin: 04/09/18 20:36 Dose: Not Given Diltiazem HCl (Cardizem) 20 mg GT Q6HR [facility] Stop: 06/09/18 02:59 Docusate Sodium (Colace) 200 mg GT BID [facility] Stop: 05/20/18 10:59 Last Admin: 04/09/18 19:08 Dose: Not Given Hydralazine HCl (Apresoline 20 Mg/Ml) 20 mg IV Q6HR PRN PRN Reason: SBP>160 Stop: 05/23/18 13:11 Levetiracetam 500 mg/ Sodium (Chloride) 105 mls @ 400 mls/hr IV Q12H [facility] Stop: 05/21/18 22:59 Last Infusion: 04/09/18 16:16 Dose: Infused Ciprofloxacin (Cipro 400mg Premix Pb) 400 mg in 200 mls @ 200 mls/hr IV Q12HR [facility] Stop: 06/01/18 20:59 Last Admin: 04/09/18 21:00 Dose: 200 mls/hr Multivitamins/Minerals 10 ml/Chromium/Copper/Manganese/Zinc 1 ml/ Dextrose/ Amino Acids/Electrolytes/ Fat Emulsion Intravenous 1,800 mls @ 75 mls/hr IV .Q24H [facility] Stop: 06/08/18 10:14 Insulin Human Lispro (Humalog Insulin Sliding Scale) 0 units SUBQ Q6H [facility]; Protocol Stop: 05/22/18 15:59 Last Admin: 04/09/18 22:30 Dose: Not Given Lactobacillus Rhamnosus (Culturelle 15b) 1 each PO DAILY [facility] Stop: 05/25/18 08:59 Last Admin: 04/09/18 11:00 Dose: Not Given Lactulose (Cephulac) 10 gm GT DAILY PRN PRN Reason: Constipation Last Admin: 03/22/18 13:47 Dose: 10 gm Magnesium Hydroxide (Milk Of Magnesia) 30 ml GT Q72H PRN PRN Reason: Constipation Stop: 05/20/18 10:48 Metoprolol Tartrate (Lopressor) 5 mg IV Q6HR [facility] Stop: 06/07/18 17:59 Last Admin: 04/09/18 17:06 Dose: 5 mg Miscellaneous (Probiotic Screen) 1 ea MC PRN PRN PRN Reason: PROTOCOL Stop: 05/24/18 17:10 Miscellaneous (Tpn Per Pharmacy) 1 ea MC PRN PRN PRN Reason: PROTOCOL Stop: 06/08/18 10:25 Morphine Sulfate (Morphine) 1 mg IVP Q4HR PRN PRN Reason: Pain (Moderate) Stop: 06/07/18 17:30 Last Admin: 04/09/18 20:59 Dose: 1 mg Nystatin/Triamcinolone Acetonide (Mycolog Ii Cream) 1 appl TP BID [facility] Stop: 06/06/18 10:29 Last Admin: 04/09/18 19:09 Dose: Not Given Petrolatum (Zinc Oxide) 1 appl TP HS [facility] Stop: 05/21/18 20:59 Last Admin: 04/09/18 21:06 Dose: 1 appl Sodium Phosphate (Fleet Enema) 135 ml RC Q96H PRN PRN Reason: IF DULCOLAX INEFFECTIVE Stop: 05/20/18 10:46 General: No acute distress Cardiovascular: Regular rate Lungs: Clear to auscultation Abdomen: Bowel sounds, Soft, Other (hypoactive bowel sounds G-tube placed), no Tender, no Distended, no Rebound, no Mass, no Guarding Extremities: Pulses (normal), Other (contractures of the upper extremities), no Edema Neurological: Sensation intact Skin: Rash Psych/Mental Status: Mood NL - Procedures Procedures: Procedures Procedure Code Date ASPIR CURETT UTERUS NEC 69.59 06/12/11 CHANGE FEEDING DEVICE IN UP INTEST TRACT, TUNE UP MECHANIC APPROACH [id number] 01/27/16 CHANGE GASTROSTOMY TUBE 08437 05/21/15 DILATION AND CURETTAGE 75852 06/12/11 EGD BIOPSY SINGLE/MULTIPLE 43787 07/15/16 EXCISION OF ABD SUBCU/FASCIA, OPEN APPROACH [id number] 03/20/18 EXCISION OF ABDOMINAL WALL, OPEN APPROACH [id number] 03/20/18 EXCISION OF STOMACH, ENDO, DIAGN [id number] 07/15/16 EXCISION OF STOMACH, OPEN APPROACH [id number] 03/20/18 INSERTION OF FEEDING DEVICE INTO STOMACH, ENDO [id number] 07/15/16 INSERTION OF FEEDING DEVICE INTO STOMACH, OPEN APPROACH [id number] 03/20/18 LAPARO PROC ABDM/PER/OMENT [id number] 07/29/13 LAPAROSCOP APPENDECTOMY 47.01 07/29/13 LAPAROSCOP LYSIS-PERITONEAL ADHES 54.51 07/29/13 LAPAROSCOPY APPENDECTOMY 26047 07/29/13 RELEASE OMENTUM, OPEN APPROACH [id number] 03/20/18 REPLACE GASTROSTOMY TUBE 97.02 07/26/14 Assessment/Plan - Assessment Assessment: # G tube site cellulitis # Dysphagia # Developmental delay As of 03/25, the site looked worse thus the G tube was pulled. Will need to wait for the area to heal prior to inserting a new one On 03/30, there is still erythema and some leakage from the area. Unclear if proper wound care is being applied to this area. On 04/01, the site looks more inflamed. Does not appear to be leakage from NG feeding, but infection on the skin is not improving. on 04/02 - NG tube was pulled bc of tip extruding out of gc fistula site S/P SURGICAL CLOSURE OF OLD GC FISTULA SITE AND INSERTION OF A NEW GT SURGICALLY. Plan: -appreciate surgical management -Start tube feeds per surgical recommendation -G tube support and care
[2018-04-10] MEDS: Albuterol/Ipratropium Neb 3 ML AERS HHN SCH ×4 (00:50→18:42)
--- NOTE | 2018-04-10 01:04 | Progress Notes ---
DATE: 04/09/2018 SUBJECTIVE: The patient appears to be doing okay, comfortable, some congestion. The patient is awake, in no distress. OBJECTIVE: VITAL SIGNS: Temperature 98.1, pulse 109, respirations 17, blood pressure 152/87, saturation 100%. CHEST: Good breath sounds, no wheezing, few rhonchi. HEART: Regular rate and rhythm. ABDOMEN: Soft. EXTREMITIES: No edema. LABORATORY DATA: WBC 17.9, hemoglobin 13.7, hematocrit 40.5. Sodium 136, potassium 3.9, BUN 12, creatinine 0.3. IMPRESSION: 1. Respiratory failure. 2. Status post surgery, the patient is awake, alert, tolerating weaning. PLAN: Wean off to extubate if tolerated. JOB# [id number]
--- NOTE | 2018-04-10 01:48 | Progress Notes ---
DATE: 04/09/2018 SURGICAL PROGRESS NOTE TIME: 6:15 p.m. SUBJECTIVE: The patient is somewhat restless at this time, has aerosol mask. She was recently extubated, in no obvious distress. SUBJECTIVE: CHEST: Clear to auscultation bilaterally. HEART: Regular rate. ABDOMEN: Midline incision clean and dry. The G-tube is intact with no bleeding, hematoma, or signs of infection. NEUROVASCULAR AND EXTREMITIES: Otherwise unchanged. G-tube is to gravity drainage at this time. The patient is somewhat tachycardic, but has been afebrile. LABORATORY DATA: White blood cell count 17.9, H and H of 13.7 and 40.5, platelet count is 110. No significant bandemia. Chem-7 is otherwise unremarkable. MEDICATIONS: The patient is on ciprofloxacin, lactulose, milk of magnesia, morphine for pain. IMPRESSION/PLAN: Postop day #1 status post laparotomy, takedown of gastrocutaneous fistula and new gastrostomy tube placement. The patient is overall stable, some mild tachycardia probably related to pain and discomfort. Nursing is giving her round the clock pain medications IV. The G-tube will be shortly for medications and for tube feeds. The patient has a leukocytosis, which is probably just reactive from surgery. We will continue to follow closely. JOB# [id number]
[2018-04-10] MEDS ORDERED: Diltiazem 30 mg Tab GT SCH (03:00)
[2018-04-10] MEDS: Morphine Sulfate 2 mg/mL 1mL Syr IVP PRN ×3 (03:42→18:58)
[2018-04-10] MEDS: INSULIN LISPRO SLIDING SCALE 100 UNITS/ML UNIT SUBQ SCH ×4 (04:00→22:03)
[2018-04-10] MEDS: Zinc Oxide Ointment 60 gm TP SCH ×2 (04:48→21:00)
[2018-04-10 05:36] LABS: % BASOPHILS 0.5 % (0.0-2.0); % EOSINOPHILS 0.9 % (0.0-5.0); % LYMPHOCYTES 12.1 % (20.0-50.0); % MONOCYTES 11.3 % (2.0-10.0); % NEUTROPHILS 75.2 % (40.0-80.0); BASOPHILE ABSOLUTE 0.1 Th/cumm (0-0.2); EOSINOPHILE ABSOLUTE 0.1 Th/cmm (0.1-0.4); HEMATOCRIT 36.9 % (41.0-60); HEMOGLOBIN 12.4 gm/dL (12-16); LYMPHOCYTE ABSOLUTE 1.7 Th/cmm (1.5-3.0); MEAN CELL VOLUME 97.5 fl (81-100); MEAN CORPUSCULAR HEMOGLOBIN 32.8 pg (27.0-31.0); MEAN CORPUSCULAR HGB CONC 33.6 pg (28.0-36.0); MEAN PLATELET VOLUME 10.8 fl; MONOCYTE ABSOLUTE 1.6 Th/cmm (0.3-1.0); NEUTROPHILE ABSOLUTE 10.7 Th/cmm (1.8-8.0); PLATELET COUNT 200 Th/cmm (150-400); RED BLOOD COUNT 3.79 Mil/cmm (3.80-5.10); WHITE BLOOD COUNT 14.2 Th/cmm (4.8-10.8)
[2018-04-10 06:14] LABS: ANION GAP 11.1 (7.0-16.0); BUN - UREA NITROGEN 12 mg/dL (7-25); CARBON DIOXIDE 26.8 mEq/L (21.0-31.0); CHLORIDE 104 mEq/L (98-107); CREATININE - SERUM 0.3 mg/dL (0.6-1.2); GFR AFRICAN-AMERICAN > 60.0 ml/min (>90); GFR NON AFRICAN-AMERICAN > 60.0 ml/min; GLUCOSE 133 mg/dL (70-105); MAGNESIUM 2.3 mg/dL (1.9-2.7); PHOSPHOROUS 2.6 mg/dL (2.5-5.0); POTASSIUM SERUM 3.9 mEq/L (3.5-5.1); SODIUM SERUM 138 mEq/L (136-145)
[2018-04-10] MEDS: Metoprolol tartrate 1 mg/ml 5mL Amp IV SCH ×3 (06:54→17:42)
--- NOTE | 2018-04-10 08:51 | GI Progress Note ---
Subjective - Review of Systems Service Date: 04/10/18 Subjective: EVENTS NOTED. STARTED GT FEEDS 20. Objective - Results Result Diagrams: 04/10/18 04:40 04/10/18 04:40 Recent Labs: Laboratory Last Values WBC 14.2 Th/cmm (4.8-10.8) H 04/10/18 04:40 RBC 3.79 Mil/cmm (3.80-5.10) L 04/10/18 04:40 Hgb 12.4 gm/dL (12-16) 04/10/18 04:40 Hct 36.9 % (41.0-60) L 04/10/18 04:40 MCV 97.5 fl (81-100) 04/10/18 04:40 MCH 32.8 pg (27.0-31.0) H 04/10/18 04:40 MCHC Differential 33.6 pg (28.0-36.0) 04/10/18 04:40 RDW 11.0 % (11.5-20.0) L 04/10/18 04:40 Plt Count 200 Th/cmm (150-400) 04/10/18 04:40 MPV 10.8 fl 04/10/18 04:40 Add Manual Diff YES 04/09/18 04:10 Neutrophils % 75.2 % (40.0-80.0) 04/10/18 04:40 Band Neutrophils % 1 % (0-10) 04/09/18 04:10 Lymphocytes % 12.1 % (20.0-50.0) L 04/10/18 04:40 Monocytes % 11.3 % (2.0-10.0) H 04/10/18 04:40 Eosinophils % 0.9 % (0.0-5.0) 04/10/18 04:40 Basophils % 0.5 % (0.0-2.0) 04/10/18 04:40 Neutrophils (Manual) 82 % (40-80) H 04/09/18 04:10 Lymphocytes 10 % (20-50) L 04/09/18 04:10 Monocytes 6 % (2-10) 04/09/18 04:10 Eosinophils 1 % (0-5) 04/09/18 04:10 ESR 41 mm/hr (0-30) H 03/22/18 04:50 PT 10.6 SECONDS (9.5-11.5) 04/08/18 05:30 INR 1.02 (0.5-1.4) 04/08/18 05:30 Specimen Source art 04/09/18 14:57 Sample Site Left Radial 04/09/18 14:57 pH 7.45 (7.35-7.45) 04/09/18 14:57 pCO2 33.7 mmHg (35.0-45.0) L 04/09/18 14:57 pO2 104.0 mmHg (80.0-100.0) H 04/09/18 14:57 HCO3 22.9 mEq/L (20.0-26.0) 04/09/18 14:57 Base Excess -0.3 mEq/L (-3.0-3.0) 04/09/18 14:57 O2 Saturation 98.0 % (92.0-100.0) 04/09/18 14:57 Herman Test pos 04/09/18 14:57 Vent Rate na 04/09/18 14:57 Inspired O2 30 04/09/18 14:57 Tidal Volume na 04/09/18 14:57 PEEP na 04/09/18 14:57 Pressure (ins/psv/peep) na 04/09/18 14:57 Critical Value RNinofranco 04/09/18 14:57 Sodium 138 mEq/L (136-145) 04/10/18 04:40 Potassium 3.9 mEq/L (3.5-5.1) 04/10/18 04:40 Chloride 104 mEq/L (98-107) 04/10/18 04:40 Carbon Dioxide 26.8 mEq/L (21.0-31.0) 04/10/18 04:40 Anion Gap 11.1 (7.0-16.0) 04/10/18 04:40 BUN 12 mg/dL (7-25) 04/10/18 04:40 Creatinine 0.3 mg/dL (0.6-1.2) L 04/10/18 04:40 Est GFR ( Amer) > 60.0 ml/min (>90) 04/10/18 04:40 Est GFR (Non-Af Amer) > 60.0 ml/min 04/10/18 04:40 BUN/Creatinine Ratio 40.0 04/10/18 04:40 Glucose 133 mg/dL (70-105) H 04/10/18 04:40 POC Glucose 139 MG/DL (70 - 105) H 04/10/18 04:27 Whole Bld Lactic Acid 1.20 mmol/L (0.60-1.99) 03/20/18 19:15 Calcium 8.0 mg/dL (8.6-10.3) L 04/10/18 04:40 Phosphorus 2.6 mg/dL (2.5-5.0) 04/10/18 04:40 Magnesium 2.3 mg/dL (1.9-2.7) 04/10/18 04:40 Total Bilirubin 0.4 mg/dL (0.3-1.0) 04/05/18 04:35 Direct Bilirubin 0.47 mg/dL (0.0-0.2) H 03/29/18 04:35 AST 36 U/L (13-39) 04/05/18 04:35 ALT 38 U/L (7-52) 04/05/18 04:35 Alkaline Phosphatase 85 U/L (34-104) 04/05/18 04:35 C-Reactive Protein < 0.2 mg/dL (0.0-0.9) 03/22/18 04:50 Total Protein 6.8 gm/dL (6.0-8.3) 04/05/18 04:35 Albumin 3.2 gm/dL (3.7-5.3) L 04/05/18 04:35 Globulin 3.6 gm/dL 04/05/18 04:35 Albumin/Globulin Ratio 0.9 (1.0-1.8) L 04/05/18 04:35 Prealbumin 13 mg/dL (10-36) 04/05/18 04:35 Triglycerides 109 mg/dL (<150) 04/05/18 04:35 Cholesterol 143 mg/dL (<200) 04/05/18 04:35 LDL Cholesterol Direct 87 mg/dL (75-193) 03/21/18 04:45 HDL Cholesterol 65 mg/dL (23-92) 03/21/18 04:45 TSH 1.11 uIU/ml (0.34-5.60) 03/21/18 04:45 Vancomycin Trough 14.4 ug/mL (5-10) H 03/24/18 20:28 - Physical Exam Vitals and I&O: Vital Signs Temp 97.8 F 04/10/18 04:00 Pulse 87 04/10/18 06:54 Resp 16 04/10/18 06:50 BP 103/56 04/10/18 06:54 Pulse Ox 100 04/10/18 06:50 Intake & Output 04/09/18 04/10/18 04/10/18 18:59 06:59 18:59 Intake Total 1205 2580 Output Total 20 Balance 1205 2560 Weight (lbs) 36.968 kg 37.195 kg Intake: Intake, IV Amount 305 355 Ciprofloxacin 400mg 200 200 Premix PB 400 mg In 200 ml @ 200 mls/hr IV Q12HR [facility] Rx#:[id number] Levetiracetam 500 mg In 105 105 Sodium Chloride 0.9% 100 ml @ 400 mls/hr IV Q12H [facility] Rx#:[id number] Mag Sulfate 2gm/50mL 50 Premix 2 gm In 50 ml @ 25 mls/hr IV X1 ONE Rx#: [id number] Oral 0 Tube Feeding 60 TPN/PPN 900 1725 Other 440 Output: Other 20 Other: # Voids 3 3 # Bowel Movements 0 0 Weight Source Bedscale Bedscale Active Medications: Current Medications Acetaminophen (Tylenol 650mg/20.3ml Suspension) 650 mg GT Q4HR PRN PRN Reason: Pain Or Fever >100 Stop: 05/20/18 10:46 Albuterol/Ipratropium (Duoneb Neb) 3 ml HHN [id number] PRN PRN Reason: sob Stop: 05/20/18 10:46 Last Admin: 04/08/18 14:39 Dose: 3 ml Albuterol/Ipratropium (Duoneb Neb) 3 ml HHN Q6HRT [facility] Stop: 06/07/18 18:59 Last Admin: 04/10/18 06:46 Dose: 3 ml Bisacodyl (Dulcolax 10 Mg Supp) 10 mg RC Q96H PRN PRN Reason: Constipation Stop: 05/20/18 10:46 Last Admin: 03/22/18 19:42 Dose: 10 mg Calcium/Vitamin D (Oscal W/Vitamin D) 2 tab GT BID [facility] Stop: 05/31/18 08:59 Last Admin: 04/09/18 19:08 Dose: Not Given Carbamazepine (Tegretol) 400 mg GT Q12HR@0900,2100 [facility] Stop: 05/20/18 10:59 Last Admin: 04/09/18 20:36 Dose: Not Given Chlorhexidine Gluconate (Peridex) 15 ml MM 0800,2000 [facility] Stop: 06/07/18 19:59 Last Admin: 04/09/18 20:36 Dose: Not Given Diltiazem HCl (Cardizem) 20 mg IVP Q4H PRN PRN Reason: TACHYCARDIA Stop: 06/08/18 20:59 Docusate Sodium (Colace) 200 mg GT BID [facility] Stop: 05/20/18 10:59 Last Admin: 04/09/18 19:08 Dose: Not Given Hydralazine HCl (Apresoline 20 Mg/Ml) 20 mg IV Q6HR PRN PRN Reason: SBP>160 Stop: 05/23/18 13:11 Levetiracetam 500 mg/ Sodium (Chloride) 105 mls @ 400 mls/hr IV Q12H [facility] Stop: 05/21/18 22:59 Last Infusion: 04/09/18 23:16 Dose: Infused Ciprofloxacin (Cipro 400mg Premix Pb) 400 mg in 200 mls @ 200 mls/hr IV Q12HR [facility] Stop: 06/01/18 20:59 Last Infusion: 04/09/18 22:00 Dose: Infused Multivitamins/Minerals 10 ml/Chromium/Copper/Manganese/Zinc 1 ml/ Dextrose/ Amino Acids/Electrolytes/ Fat Emulsion Intravenous 1,800 mls @ 75 mls/hr IV .Q24H [facility] Stop: 06/08/18 10:14 Last Admin: 04/10/18 01:23 Dose: 75 mls/hr Insulin Human Lispro (Humalog Insulin Sliding Scale) 0 units SUBQ Q6H [facility]; Protocol Stop: 05/22/18 15:59 Last Admin: 04/10/18 04:00 Dose: Not Given Lactobacillus Rhamnosus (Culturelle 15b) 1 each PO DAILY [facility] Stop: 05/25/18 08:59 Last Admin: 04/09/18 11:00 Dose: Not Given Lactulose (Cephulac) 10 gm GT DAILY PRN PRN Reason: Constipation Last Admin: 03/22/18 13:47 Dose: 10 gm Magnesium Hydroxide (Milk Of Magnesia) 30 ml GT Q72H PRN PRN Reason: Constipation Stop: 05/20/18 10:48 Metoprolol Tartrate (Lopressor) 5 mg IV Q6HR [facility] Stop: 06/07/18 17:59 Last Admin: 04/10/18 06:54 Dose: Not Given Miscellaneous (Probiotic Screen) 1 ea PRN PRN PRN Reason: PROTOCOL Stop: 05/24/18 17:10 Miscellaneous (Tpn Per Pharmacy) 1 ea PRN PRN PRN Reason: PROTOCOL Stop: 06/08/18 10:25 Morphine Sulfate (Morphine) 1 mg IVP Q4HR PRN PRN Reason: Pain (Moderate) Stop: 06/07/18 17:30 Last Admin: 04/10/18 03:42 Dose: 1 mg Nystatin/Triamcinolone Acetonide (Mycolog Ii Cream) 1 appl TP BID [facility] Stop: 06/06/18 10:29 Last Admin: 04/09/18 19:09 Dose: Not Given Petrolatum (Zinc Oxide) 1 appl TP HS [facility] Stop: 05/21/18 20:59 Last Admin: 04/10/18 04:48 Dose: Not Given Sodium Phosphate (Fleet Enema) 135 ml RC Q96H PRN PRN Reason: IF DULCOLAX INEFFECTIVE Stop: 05/20/18 10:46 General: No acute distress HEENT: Atraumatic Neck: Supple Cardiovascular: Regular rate Lungs: Clear to auscultation Abdomen: Bowel sounds, Soft, Other (INTACT GT), no Tender, no Distended, no Rebound, no Mass, no Guarding Extremities: no Edema - Procedures Procedures: Procedures Procedure Code Date ASPIR CURETT UTERUS NEC 69.59 06/12/11 CHANGE FEEDING DEVICE IN UP INTEST TRACT, MORGUE ATTENDANT APPROACH [id number] 01/27/16 CHANGE GASTROSTOMY TUBE 00388 05/21/15 DILATION AND CURETTAGE 29942 06/12/11 EGD BIOPSY SINGLE/MULTIPLE 06928 07/15/16 EXCISION OF ABD SUBCU/FASCIA, OPEN APPROACH [id number] 03/20/18 EXCISION OF ABDOMINAL WALL, OPEN APPROACH [id number] 03/20/18 EXCISION OF STOMACH, ENDO, DIAGN [id number] 07/15/16 EXCISION OF STOMACH, OPEN APPROACH [id number] 03/20/18 INSERTION OF FEEDING DEVICE INTO STOMACH, ENDO [id number] 07/15/16 INSERTION OF FEEDING DEVICE INTO STOMACH, OPEN APPROACH [id number] 03/20/18 LAPARO PROC ABDM/PER/OMENT 28114 07/29/13 LAPAROSCOP APPENDECTOMY 47.01 07/29/13 LAPAROSCOP LYSIS-PERITONEAL ADHES 54.51 07/29/13 LAPAROSCOPY APPENDECTOMY 11670 07/29/13 RELEASE OMENTUM, OPEN APPROACH [id number] 03/20/18 REPLACE GASTROSTOMY TUBE 97.02 07/26/14 Assessment/Plan - Assessment Assessment: # G tube site cellulitis # Dysphagia # Developmental delay S/P SURGICAL CLOSURE OF OLD GC FISTULA SITE AND INSERTION OF A NEW GT SURGICALLY. Plan: -advance tube feeds as tolerated. -G tube support and care - wean off TPN.
[2018-04-10] MEDS: Lactobacillus Rhamnosus GG 15 Billion CFU CAP.SPRINK PO SCH (09:27)
[2018-04-10] MEDS: Docusate Sodium 100 mg/10 mL UD GT SCH ×2 (09:27→17:41)
[2018-04-10] MEDS: Calcium Carb/Vit D 500 mg/200 U Tab GT SCH ×2 (09:27→17:42)
[2018-04-10] MEDS: carBAMazepine 200 mg/10 mL UDC GT SCH ×2 (09:27→20:22)
[2018-04-10] MEDS: Chlorhexidine Gluconate 0.12% 15mL Mouthwash MM SCH ×2 (09:28→19:06)
[2018-04-10] MEDS ORDERED: Ciprofloxacin 400mg Premix PB 400 MG/200 ML BAG IV SCH ×2 (09:31→21:00)
--- NOTE | 2018-04-10 14:50 | General Progress Note ---
Subjective - Review of Systems Service Date: 04/10/18 Subjective: Patient is extubated Objective - Results Result Diagrams: 04/10/18 04:40 04/10/18 04:40 Recent Labs: Laboratory Last Values WBC 14.2 Th/cmm (4.8-10.8) H 04/10/18 04:40 RBC 3.79 Mil/cmm (3.80-5.10) L 04/10/18 04:40 Hgb 12.4 gm/dL (12-16) 04/10/18 04:40 Hct 36.9 % (41.0-60) L 04/10/18 04:40 MCV 97.5 fl (81-100) 04/10/18 04:40 MCH 32.8 pg (27.0-31.0) H 04/10/18 04:40 MCHC Differential 33.6 pg (28.0-36.0) 04/10/18 04:40 RDW 11.0 % (11.5-20.0) L 04/10/18 04:40 Plt Count 200 Th/cmm (150-400) 04/10/18 04:40 MPV 10.8 fl 04/10/18 04:40 Add Manual Diff YES 04/09/18 04:10 Neutrophils % 75.2 % (40.0-80.0) 04/10/18 04:40 Band Neutrophils % 1 % (0-10) 04/09/18 04:10 Lymphocytes % 12.1 % (20.0-50.0) L 04/10/18 04:40 Monocytes % 11.3 % (2.0-10.0) H 04/10/18 04:40 Eosinophils % 0.9 % (0.0-5.0) 04/10/18 04:40 Basophils % 0.5 % (0.0-2.0) 04/10/18 04:40 Neutrophils (Manual) 82 % (40-80) H 04/09/18 04:10 Lymphocytes 10 % (20-50) L 04/09/18 04:10 Monocytes 6 % (2-10) 04/09/18 04:10 Eosinophils 1 % (0-5) 04/09/18 04:10 ESR 41 mm/hr (0-30) H 03/22/18 04:50 PT 10.6 SECONDS (9.5-11.5) 04/08/18 05:30 INR 1.02 (0.5-1.4) 04/08/18 05:30 Specimen Source art 04/09/18 14:57 Sample Site Left Radial 04/09/18 14:57 pH 7.45 (7.35-7.45) 04/09/18 14:57 pCO2 33.7 mmHg (35.0-45.0) L 04/09/18 14:57 pO2 104.0 mmHg (80.0-100.0) H 04/09/18 14:57 HCO3 22.9 mEq/L (20.0-26.0) 04/09/18 14:57 Base Excess -0.3 mEq/L (-3.0-3.0) 04/09/18 14:57 O2 Saturation 98.0 % (92.0-100.0) 04/09/18 14:57 Herman Test pos 04/09/18 14:57 Vent Rate na 04/09/18 14:57 Inspired O2 30 04/09/18 14:57 Tidal Volume na 04/09/18 14:57 PEEP na 04/09/18 14:57 Pressure (ins/psv/peep) na 04/09/18 14:57 Critical Value RNinofranco 04/09/18 14:57 Sodium 138 mEq/L (136-145) 04/10/18 04:40 Potassium 3.9 mEq/L (3.5-5.1) 04/10/18 04:40 Chloride 104 mEq/L (98-107) 04/10/18 04:40 Carbon Dioxide 26.8 mEq/L (21.0-31.0) 04/10/18 04:40 Anion Gap 11.1 (7.0-16.0) 04/10/18 04:40 BUN 12 mg/dL (7-25) 04/10/18 04:40 Creatinine 0.3 mg/dL (0.6-1.2) L 04/10/18 04:40 Est GFR ( Amer) > 60.0 ml/min (>90) 04/10/18 04:40 Est GFR (Non-Af Amer) > 60.0 ml/min 04/10/18 04:40 BUN/Creatinine Ratio 40.0 04/10/18 04:40 Glucose 133 mg/dL (70-105) H 04/10/18 04:40 POC Glucose 120 MG/DL (70 - 105) H 04/10/18 09:24 Whole Bld Lactic Acid 1.20 mmol/L (0.60-1.99) 03/20/18 19:15 Calcium 8.0 mg/dL (8.6-10.3) L 04/10/18 04:40 Phosphorus 2.6 mg/dL (2.5-5.0) 04/10/18 04:40 Magnesium 2.3 mg/dL (1.9-2.7) 04/10/18 04:40 Total Bilirubin 0.4 mg/dL (0.3-1.0) 04/05/18 04:35 Direct Bilirubin 0.47 mg/dL (0.0-0.2) H 03/29/18 04:35 AST 36 U/L (13-39) 04/05/18 04:35 ALT 38 U/L (7-52) 04/05/18 04:35 Alkaline Phosphatase 85 U/L (34-104) 04/05/18 04:35 C-Reactive Protein < 0.2 mg/dL (0.0-0.9) 03/22/18 04:50 Total Protein 6.8 gm/dL (6.0-8.3) 04/05/18 04:35 Albumin 3.2 gm/dL (3.7-5.3) L 04/05/18 04:35 Globulin 3.6 gm/dL 04/05/18 04:35 Albumin/Globulin Ratio 0.9 (1.0-1.8) L 04/05/18 04:35 Prealbumin 13 mg/dL (10-36) 04/05/18 04:35 Triglycerides 109 mg/dL (<150) 04/05/18 04:35 Cholesterol 143 mg/dL (<200) 04/05/18 04:35 LDL Cholesterol Direct 87 mg/dL (75-193) 03/21/18 04:45 HDL Cholesterol 65 mg/dL (23-92) 03/21/18 04:45 TSH 1.11 uIU/ml (0.34-5.60) 03/21/18 04:45 Vancomycin Trough 14.4 ug/mL (5-10) H 03/24/18 20:28 - Physical Exam Vitals and I&O: Vital Signs Temp 97.1 F 04/10/18 12:00 Pulse 123 04/10/18 12:15 Resp 37 04/10/18 12:15 BP 125/66 04/10/18 12:00 Pulse Ox 98 04/10/18 14:00 Intake & Output 04/09/18 04/10/18 04/10/18 18:59 06:59 18:59 Intake Total 1205 2580 Output Total 20 Balance 1205 2560 Weight (lbs) 36.968 kg 37.195 kg Intake: Intake, IV Amount 305 355 Ciprofloxacin 400mg 200 200 Premix PB 400 mg In 200 ml @ 200 mls/hr IV Q12HR [facility] Rx#:[id number] Levetiracetam 500 mg In 105 105 Sodium Chloride 0.9% 100 ml @ 400 mls/hr IV Q12H [facility] Rx#:[id number] Mag Sulfate 2gm/50mL 50 Premix 2 gm In 50 ml @ 25 mls/hr IV X1 ONE Rx#: [id number] Oral 0 Tube Feeding 60 TPN/PPN 900 1725 Other 440 Output: Other 20 Other: # Voids 3 3 # Bowel Movements 0 0 Weight Source Bedscale Bedscale Active Medications: Current Medications Acetaminophen (Tylenol 650mg/20.3ml Suspension) 650 mg GT Q4HR PRN PRN Reason: Pain Or Fever >100 Stop: 05/20/18 10:46 Albuterol/Ipratropium (Duoneb Neb) 3 ml HHN [id number] PRN PRN Reason: sob Stop: 05/20/18 10:46 Last Admin: 04/08/18 14:39 Dose: 3 ml Albuterol/Ipratropium (Duoneb Neb) 3 ml HHN Q6HRT [facility] Stop: 06/07/18 18:59 Last Admin: 04/10/18 12:13 Dose: 3 ml Bisacodyl (Dulcolax 10 Mg Supp) 10 mg RC Q96H PRN PRN Reason: Constipation Stop: 05/20/18 10:46 Last Admin: 03/22/18 19:42 Dose: 10 mg Calcium/Vitamin D (Oscal W/Vitamin D) 2 tab GT BID [facility] Stop: 05/31/18 08:59 Last Admin: 04/10/18 09:27 Dose: 2 tab Carbamazepine (Tegretol) 400 mg GT Q12HR@0900,2100 [facility] Stop: 05/20/18 10:59 Last Admin: 04/10/18 09:27 Dose: 400 mg Chlorhexidine Gluconate (Peridex) 15 ml MM 0800,2000 [facility] Stop: 06/07/18 19:59 Last Admin: 04/10/18 09:28 Dose: Not Given Diltiazem HCl (Cardizem) 20 mg IVP Q4H PRN PRN Reason: TACHYCARDIA Stop: 06/08/18 20:59 Docusate Sodium (Colace) 200 mg GT BID [facility] Stop: 05/20/18 10:59 Last Admin: 04/10/18 09:27 Dose: 200 mg Hydralazine HCl (Apresoline 20 Mg/Ml) 20 mg IV Q6HR PRN PRN Reason: SBP>160 Stop: 05/23/18 13:11 Levetiracetam 500 mg/ Sodium (Chloride) 105 mls @ 400 mls/hr IV Q12H [facility] Stop: 05/21/18 22:59 Last Admin: 04/10/18 11:11 Dose: 400 mls/hr Multivitamins/Minerals 10 ml/Chromium/Copper/Manganese/Zinc 1 ml/ Dextrose/ Amino Acids/Electrolytes/ Fat Emulsion Intravenous 1,800 mls @ 75 mls/hr IV .Q24H [facility] Stop: 06/08/18 10:14 Last Admin: 04/10/18 01:23 Dose: 75 mls/hr Ciprofloxacin (Cipro 400mg Premix Pb) 400 mg in 200 mls @ 200 mls/hr IV Q12HR [facility] Stop: 06/09/18 09:30 Last Admin: 04/10/18 09:41 Dose: 200 mls/hr Insulin Human Lispro (Humalog Insulin Sliding Scale) 0 units SUBQ Q6H [facility]; Protocol Stop: 05/22/18 15:59 Last Admin: 04/10/18 09:28 Dose: Not Given Lactobacillus Rhamnosus (Culturelle 15b) 1 each PO DAILY [facility] Stop: 05/25/18 08:59 Last Admin: 04/10/18 09:27 Dose: 1 each Lactulose (Cephulac) 10 gm GT DAILY PRN PRN Reason: Constipation Last Admin: 03/22/18 13:47 Dose: 10 gm Magnesium Hydroxide (Milk Of Magnesia) 30 ml GT Q72H PRN PRN Reason: Constipation Stop: 05/20/18 10:48 Metoprolol Tartrate (Lopressor) 5 mg IV Q6HR [facility] Stop: 06/07/18 17:59 Last Admin: 04/10/18 12:59 Dose: Not Given Miscellaneous (Probiotic Screen) 1 ea PRN PRN PRN Reason: PROTOCOL Stop: 05/24/18 17:10 Miscellaneous (Tpn Per Pharmacy) 1 ea PRN PRN PRN Reason: PROTOCOL Stop: 06/08/18 10:25 Morphine Sulfate (Morphine) 1 mg IVP Q4HR PRN PRN Reason: Pain (Moderate) Stop: 06/07/18 17:30 Last Admin: 04/10/18 12:59 Dose: 1 mg Nystatin/Triamcinolone Acetonide (Mycolog Ii Cream) 1 appl TP BID [facility] Stop: 06/06/18 10:29 Last Admin: 04/10/18 09:27 Dose: 1 appl Petrolatum (Zinc Oxide) 1 appl TP HS [facility] Stop: 05/21/18 20:59 Last Admin: 04/10/18 04:48 Dose: Not Given Sodium Phosphate (Fleet Enema) 135 ml RC Q96H PRN PRN Reason: IF DULCOLAX INEFFECTIVE Stop: 05/20/18 10:46 General: No acute distress HEENT: Atraumatic Neck: Supple Cardiovascular: Regular rate Lungs: Clear to auscultation Abdomen: Bowel sounds, Soft, Other (INTACT GT), no Tender, no Distended, no Rebound, no Mass, no Guarding Extremities: no Edema Neurological: Sensation intact Skin: Rash Psych/Mental Status: Mood NL - Procedures Procedures: Procedures Procedure Code Date ASPIR CURETT UTERUS NEC 69.59 06/12/11 CHANGE FEEDING DEVICE IN UP INTEST TRACT, PROGRAMMER DEVELOPER APPROACH [id number] 01/27/16 CHANGE GASTROSTOMY TUBE 47080 05/21/15 DILATION AND CURETTAGE 91666 06/12/11 EGD BIOPSY SINGLE/MULTIPLE 21526 07/15/16 EXCISION OF ABD SUBCU/FASCIA, OPEN APPROACH [id number] 03/20/18 EXCISION OF ABDOMINAL WALL, OPEN APPROACH [id number] 03/20/18 EXCISION OF STOMACH, ENDO, DIAGN [id number] 07/15/16 EXCISION OF STOMACH, OPEN APPROACH [id number] 03/20/18 INSERTION OF FEEDING DEVICE INTO STOMACH, ENDO [id number] 07/15/16 INSERTION OF FEEDING DEVICE INTO STOMACH, OPEN APPROACH [id number] 03/20/18 LAPARO PROC ABDM/PER/OMENT 67544 07/29/13 LAPAROSCOP APPENDECTOMY 47.01 07/29/13 LAPAROSCOP LYSIS-PERITONEAL ADHES 54.51 07/29/13 LAPAROSCOPY APPENDECTOMY 88544 07/29/13 RELEASE OMENTUM, OPEN APPROACH [id number] 03/20/18 REPLACE GASTROSTOMY TUBE 97.02 07/26/14 Assessment/Plan - Assessment Assessment: G-tube cellulitis Gastrocutaneous fistula Hypernatremia Contractures both upper and lower extremity Protein calorie malnutrition Dementia Cholelithiasis Osteoporosis Patient had surgery laparotomy lysis of adhesion gastrocutaneous fistula and G- tube placement Hypertension Sinus tachycardia - Plan Plan: Patient on ventilator Lopressor 5 mg IV every 6 hours to control blood pressure and her heart rate Cardizem 30 mg every 8 hours Cardiac exam 10 mg IV every 4 hours when necessary to control the heart rate Nutritional Asmnt/Malnutr-PDOC - Dietary Evaluation Malnutrition Findings (Please click <Entered> for more info): Nutritional Asmnt/Malnutrition Start: 03/21/18 13: 29 Text: Status: Complete Freq: Protocol: Document 03/21/18 13:29 LCHENG (Rec: 03/21/18 13:45 LCHENG [email or web address]) Nutritional Asmnt/Malnutrition Patient General Information Nutritional Screening High Risk Consult Diagnosis displacement of Gtube, Gtube site cellulitis Pertinent Medical Hx/Surgical Hx HTN, PUD?GERD, seizures, hepatitis B and C, developmentally disabled, quadriplegic Subjective Information Consult reiceved for shayna score 11. Pt seen in bed, non verbal noted. Per nurse pt is tolerating current tube feeding. CALEB Rdz asked about TF rate since pt was receiving Jevity 1.5 at long-term and our hospital only carries Jevity 1.2. Current Diet Order/ Nutrition Support Jevity 1.2 at 40ml/hr x 20hr, providing 960kcal and 44g protein Pertinent Medications oscal w/vit D, colace, nacl 0. 9%, vancomycin Pertinent Labs 2/4 Cl 108, Cr 0.4 2/3 Cr 0.4, glucose 109, alb 3 .6 Nutritional Hx/Data Height 1.6 m Height (Calculated Centimeters) 160.0 Current Weight (lbs) 45.359 kg Weight (Calculated Kilograms) 45.4 Weight (Calculated Grams) 39206.2 [place] Body Weight 115 Body Mass Index (BMI) 17.6 Weight Status Underweight GI Symptoms GI Symptoms None Last BM not indicated Usual diet at home Jevity 1.5 at 40ml/hr x 20hr at [facility] Skin Integrity/Comment: cellulitis reddened to Gtube site shayna 11 Estimated Nutritional Goals Calories/Kcals/Kg 25-30 IBW 52kg Kcals Calculated 4005-5697 Protein g/k-1.2 Protein Calculated 52-62 Fluid: ml 1300-1560ml (1ml/kcal) Nutritional Problem 1. Problem Problem inadequate intake from enteral feeding Etiology current TF regimen not meeting nutritional needs Signs/Symptoms: current TF providing 960kcal and 44g protein Malnutrition Related to Morbid Obesity Malnutrition related to morbid obesity No Intervention/Recommendation Comments 1. Recommend to increase TF rate to Jevity 1.2 at 55ml/hr x 20hr. It provides 1320kcal, 61g protein, 888ml free water, meeting 100% of nutritional needs. CALEB Rdz notified. 2. Monitor TF rate, tolerance, wt, skin integrity and labs 3. F/U as high risk in 2-3 days, 2-2/ Expected Outcomes/Goals Expected Outcomes/Goals 1. Pt to meet at least 90% of nutritional needs via nutrition support with tolerance 2. Wt stability, skin to remain intact, labs to approach WNL.
--- NOTE | 2018-04-10 16:19 | General Progress Note ---
Subjective - Review of Systems Service Date: 04/10/18 Subjective: alert, nonverbal, comfortable Objective - Results Result Diagrams: 04/10/18 04:40 04/10/18 04:40 Recent Labs: Laboratory Last Values WBC 14.2 Th/cmm (4.8-10.8) H 04/10/18 04:40 RBC 3.79 Mil/cmm (3.80-5.10) L 04/10/18 04:40 Hgb 12.4 gm/dL (12-16) 04/10/18 04:40 Hct 36.9 % (41.0-60) L 04/10/18 04:40 MCV 97.5 fl (81-100) 04/10/18 04:40 MCH 32.8 pg (27.0-31.0) H 04/10/18 04:40 MCHC Differential 33.6 pg (28.0-36.0) 04/10/18 04:40 RDW 11.0 % (11.5-20.0) L 04/10/18 04:40 Plt Count 200 Th/cmm (150-400) 04/10/18 04:40 MPV 10.8 fl 04/10/18 04:40 Add Manual Diff YES 04/09/18 04:10 Neutrophils % 75.2 % (40.0-80.0) 04/10/18 04:40 Band Neutrophils % 1 % (0-10) 04/09/18 04:10 Lymphocytes % 12.1 % (20.0-50.0) L 04/10/18 04:40 Monocytes % 11.3 % (2.0-10.0) H 04/10/18 04:40 Eosinophils % 0.9 % (0.0-5.0) 04/10/18 04:40 Basophils % 0.5 % (0.0-2.0) 04/10/18 04:40 Neutrophils (Manual) 82 % (40-80) H 04/09/18 04:10 Lymphocytes 10 % (20-50) L 04/09/18 04:10 Monocytes 6 % (2-10) 04/09/18 04:10 Eosinophils 1 % (0-5) 04/09/18 04:10 ESR 41 mm/hr (0-30) H 03/22/18 04:50 PT 10.6 SECONDS (9.5-11.5) 04/08/18 05:30 INR 1.02 (0.5-1.4) 04/08/18 05:30 Specimen Source art 04/09/18 14:57 Sample Site Left Radial 04/09/18 14:57 pH 7.45 (7.35-7.45) 04/09/18 14:57 pCO2 33.7 mmHg (35.0-45.0) L 04/09/18 14:57 pO2 104.0 mmHg (80.0-100.0) H 04/09/18 14:57 HCO3 22.9 mEq/L (20.0-26.0) 04/09/18 14:57 Base Excess -0.3 mEq/L (-3.0-3.0) 04/09/18 14:57 O2 Saturation 98.0 % (92.0-100.0) 04/09/18 14:57 Herman Test pos 04/09/18 14:57 Vent Rate na 04/09/18 14:57 Inspired O2 30 04/09/18 14:57 Tidal Volume na 04/09/18 14:57 PEEP na 04/09/18 14:57 Pressure (ins/psv/peep) na 04/09/18 14:57 Critical Value RNinofranco 04/09/18 14:57 Sodium 138 mEq/L (136-145) 04/10/18 04:40 Potassium 3.9 mEq/L (3.5-5.1) 04/10/18 04:40 Chloride 104 mEq/L (98-107) 04/10/18 04:40 Carbon Dioxide 26.8 mEq/L (21.0-31.0) 04/10/18 04:40 Anion Gap 11.1 (7.0-16.0) 04/10/18 04:40 BUN 12 mg/dL (7-25) 04/10/18 04:40 Creatinine 0.3 mg/dL (0.6-1.2) L 04/10/18 04:40 Est GFR ( Amer) > 60.0 ml/min (>90) 04/10/18 04:40 Est GFR (Non-Af Amer) > 60.0 ml/min 04/10/18 04:40 BUN/Creatinine Ratio 40.0 04/10/18 04:40 Glucose 133 mg/dL (70-105) H 04/10/18 04:40 POC Glucose 120 MG/DL (70 - 105) H 04/10/18 09:24 Whole Bld Lactic Acid 1.20 mmol/L (0.60-1.99) 03/20/18 19:15 Calcium 8.0 mg/dL (8.6-10.3) L 04/10/18 04:40 Phosphorus 2.6 mg/dL (2.5-5.0) 04/10/18 04:40 Magnesium 2.3 mg/dL (1.9-2.7) 04/10/18 04:40 Total Bilirubin 0.4 mg/dL (0.3-1.0) 04/05/18 04:35 Direct Bilirubin 0.47 mg/dL (0.0-0.2) H 03/29/18 04:35 AST 36 U/L (13-39) 04/05/18 04:35 ALT 38 U/L (7-52) 04/05/18 04:35 Alkaline Phosphatase 85 U/L (34-104) 04/05/18 04:35 C-Reactive Protein < 0.2 mg/dL (0.0-0.9) 03/22/18 04:50 Total Protein 6.8 gm/dL (6.0-8.3) 04/05/18 04:35 Albumin 3.2 gm/dL (3.7-5.3) L 04/05/18 04:35 Globulin 3.6 gm/dL 04/05/18 04:35 Albumin/Globulin Ratio 0.9 (1.0-1.8) L 04/05/18 04:35 Prealbumin 13 mg/dL (10-36) 04/05/18 04:35 Triglycerides 109 mg/dL (<150) 04/05/18 04:35 Cholesterol 143 mg/dL (<200) 04/05/18 04:35 LDL Cholesterol Direct 87 mg/dL (75-193) 03/21/18 04:45 HDL Cholesterol 65 mg/dL (23-92) 03/21/18 04:45 TSH 1.11 uIU/ml (0.34-5.60) 03/21/18 04:45 Vancomycin Trough 14.4 ug/mL (5-10) H 03/24/18 20:28 - Physical Exam Vitals and I&O: Vital Signs Temp 97.1 F 04/10/18 12:00 Pulse 123 04/10/18 12:15 Resp 37 04/10/18 12:15 BP 125/66 04/10/18 12:00 Pulse Ox 98 04/10/18 14:00 Intake & Output 04/09/18 04/10/18 04/10/18 18:59 06:59 18:59 Intake Total 1205 2580 Output Total 20 Balance 1205 2560 Weight (lbs) 36.968 kg 37.195 kg Intake: Intake, IV Amount 305 355 Ciprofloxacin 400mg 200 200 Premix PB 400 mg In 200 ml @ 200 mls/hr IV Q12HR [facility] Rx#:[id number] Levetiracetam 500 mg In 105 105 Sodium Chloride 0.9% 100 ml @ 400 mls/hr IV Q12H [facility] Rx#:[id number] Mag Sulfate 2gm/50mL 50 Premix 2 gm In 50 ml @ 25 mls/hr IV X1 ONE Rx#: [id number] Oral 0 Tube Feeding 60 TPN/PPN 900 1725 Other 440 Output: Other 20 Other: # Voids 3 3 # Bowel Movements 0 0 Weight Source Bedscale Bedscale Active Medications: Current Medications Acetaminophen (Tylenol 650mg/20.3ml Suspension) 650 mg GT Q4HR PRN PRN Reason: Pain Or Fever >100 Stop: 05/20/18 10:46 Albuterol/Ipratropium (Duoneb Neb) 3 ml HHN Q0KEFON PRN PRN Reason: sob Stop: 05/20/18 10:46 Last Admin: 04/08/18 14:39 Dose: 3 ml Albuterol/Ipratropium (Duoneb Neb) 3 ml HHN Q6HRT [facility] Stop: 06/07/18 18:59 Last Admin: 04/10/18 12:13 Dose: 3 ml Bisacodyl (Dulcolax 10 Mg Supp) 10 mg RC Q96H PRN PRN Reason: Constipation Stop: 05/20/18 10:46 Last Admin: 03/22/18 19:42 Dose: 10 mg Calcium/Vitamin D (Oscal W/Vitamin D) 2 tab GT BID [facility] Stop: 05/31/18 08:59 Last Admin: 02/24/19 09:27 Dose: 2 tab Carbamazepine (Tegretol) 400 mg GT Q12HR@0900,2100 [facility] Stop: 05/20/18 10:59 Last Admin: 04/10/18 09:27 Dose: 400 mg Chlorhexidine Gluconate (Peridex) 15 ml MM 0800,2000 [facility] Stop: 06/07/18 19:59 Last Admin: 04/10/18 09:28 Dose: Not Given Diltiazem HCl (Cardizem) 30 mg PO Q8HR [facility] Stop: 06/09/18 20:59 Diltiazem HCl (Cardizem) 10 mg IVP Q4H PRN PRN Reason: Tachycardia Stop: 06/09/18 14:59 Docusate Sodium (Colace) 200 mg GT BID [facility] Stop: 05/20/18 10:59 Last Admin: 04/10/18 09:27 Dose: 200 mg Hydralazine HCl (Apresoline 20 Mg/Ml) 20 mg IV Q6HR PRN PRN Reason: SBP>160 Stop: 05/23/18 13:11 Levetiracetam 500 mg/ Sodium (Chloride) 105 mls @ 400 mls/hr IV Q12H [facility] Stop: 05/21/18 22:59 Last Admin: 04/10/18 11:11 Dose: 400 mls/hr Multivitamins/Minerals 10 ml/Chromium/Copper/Manganese/Zinc 1 ml/ Dextrose/ Amino Acids/Electrolytes/ Fat Emulsion Intravenous 1,800 mls @ 75 mls/hr IV .Q24H [facility] Stop: 06/08/18 10:14 Last Admin: 04/10/18 01:23 Dose: 75 mls/hr Ciprofloxacin (Cipro 400mg Premix Pb) 400 mg in 200 mls @ 200 mls/hr IV Q12HR [facility] Stop: 06/09/18 09:30 Last Admin: 04/10/18 09:41 Dose: 200 mls/hr Insulin Human Lispro (Humalog Insulin Sliding Scale) 0 units SUBQ Q6H [facility]; Protocol Stop: 05/22/18 15:59 Last Admin: 04/10/18 09:28 Dose: Not Given Lactobacillus Rhamnosus (Culturelle 15b) 1 each PO DAILY [facility] Stop: 05/25/18 08:59 Last Admin: 04/10/18 09:27 Dose: 1 each Lactulose (Cephulac) 10 gm GT DAILY PRN PRN Reason: Constipation Last Admin: 03/22/18 13:47 Dose: 10 gm Magnesium Hydroxide (Milk Of Magnesia) 30 ml GT Q72H PRN PRN Reason: Constipation Stop: 05/20/18 10:48 Metoprolol Tartrate (Lopressor) 5 mg IV Q6HR [facility] Stop: 06/07/18 17:59 Last Admin: 04/10/18 12:59 Dose: Not Given Miscellaneous (Probiotic Screen) 1 ea PRN PRN PRN Reason: PROTOCOL Stop: 05/24/18 17:10 Miscellaneous (Tpn Per Pharmacy) 1 ea PRN PRN PRN Reason: PROTOCOL Stop: 06/08/18 10:25 Morphine Sulfate (Morphine) 1 mg IVP Q4HR PRN PRN Reason: Pain (Moderate) Stop: 06/07/18 17:30 Last Admin: 04/10/18 12:59 Dose: 1 mg Nystatin/Triamcinolone Acetonide (Mycolog Ii Cream) 1 appl TP BID [facility] Stop: 06/06/18 10:29 Last Admin: 04/10/18 09:27 Dose: 1 appl Petrolatum (Zinc Oxide) 1 appl TP HS [facility] Stop: 05/21/18 20:59 Last Admin: 04/10/18 04:48 Dose: Not Given Sodium Phosphate (Fleet Enema) 135 ml RC Q96H PRN PRN Reason: IF DULCOLAX INEFFECTIVE Stop: 05/20/18 10:46 General: No acute distress HEENT: Atraumatic Neck: Supple Cardiovascular: Regular rate Lungs: Clear to auscultation Abdomen: Bowel sounds, Soft, Other (INTACT GT), no Tender, no Distended, no Rebound, no Mass, no Guarding Extremities: no Edema Neurological: Sensation intact Skin: Rash Psych/Mental Status: Mood NL - Procedures Procedures: Procedures Procedure Code Date ASPIR CURETT UTERUS NEC 69.59 06/12/11 CHANGE FEEDING DEVICE IN UP INTEST TRACT, SORTING 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 APPROACH [id number] 01/27/16 CHANGE GASTROSTOMY TUBE 76309 05/21/15 DILATION AND CURETTAGE 06941 06/12/11 EGD BIOPSY SINGLE/MULTIPLE 88901 07/15/16 EXCISION OF ABD SUBCU/FASCIA, OPEN APPROACH [id number] 03/20/18 EXCISION OF ABDOMINAL WALL, OPEN APPROACH [id number] 03/20/18 EXCISION OF STOMACH, ENDO, DIAGN [id number] 07/15/16 EXCISION OF STOMACH, OPEN APPROACH [id number] 03/20/18 INSERTION OF FEEDING DEVICE INTO STOMACH, ENDO [id number] 07/15/16 INSERTION OF FEEDING DEVICE INTO STOMACH, OPEN APPROACH [id number] 03/20/18 LAPARO PROC ABDM/PER/OMENT 58301 07/29/13 LAPAROSCOP APPENDECTOMY 47.01 07/29/13 LAPAROSCOP LYSIS-PERITONEAL ADHES 54.51 07/29/13 LAPAROSCOPY APPENDECTOMY 41370 07/29/13 RELEASE OMENTUM, OPEN APPROACH [id number] 03/20/18 REPLACE GASTROSTOMY TUBE 97.02 07/26/14 Assessment/Plan - Assessment Assessment: 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 site Cellulitis Hyponatremia resolved Constipation Epilepsy Intellectual Disability - Plan Plan: Lab - Result Diagrams 03/24/18 06:00 03/26/18 05:05 Current Medications Acetaminophen (Tylenol 650mg/20.3ml Suspension) 650 mg GT Q4HR PRN PRN Reason: Pain Or Fever >100 Stop: 05/20/18 10:46 Albuterol/Ipratropium (Duoneb Neb) 3 ml HHN [id number] PRN PRN Reason: sob Stop: 05/20/18 10:46 Last Admin: 03/25/18 20:04 Dose: 3 ml Bisacodyl (Dulcolax 10 Mg Supp) 10 mg RC Q96H PRN PRN Reason: Constipation Stop: 05/20/18 10:46 Last Admin: 03/22/18 19:42 Dose: 10 mg Carbamazepine (Tegretol) 400 mg GT Q12HR@0900,2100 [facility] Stop: 05/20/18 10:59 Last Admin: 03/26/18 08:02 Dose: Not Given Docusate Sodium (Colace) 200 mg GT BID [facility] Stop: 05/20/18 10:59 Last Admin: 03/26/18 08:02 Dose: Not Given Hydralazine HCl (Apresoline 20 Mg/Ml) 20 mg IV Q6HR PRN PRN Reason: SBP>160 Stop: 05/23/18 13:11 Levetiracetam 500 mg/ Sodium (Chloride) 105 mls @ 400 mls/hr IV Q12H [facility] Stop: 05/21/18 22:59 Last Admin: 03/26/18 10:16 Dose: 400 mls/hr Ciprofloxacin (Cipro 200mg Premix Pb) 200 mg in 100 mls @ 100 mls/hr IV Q12HR [facility] Stop: 05/23/18 13:29 Last Admin: 03/26/18 08:33 Dose: 100 mls/hr Multivitamins/Minerals 10 ml/Dextrose/ Amino Acids/Electrolytes/ Sterile Water 1,810 mls @ 75 mls/hr IV .Q24H [facility] Stop: 04/23/18 15:59 Last Admin: 03/25/18 15:47 Dose: 75 mls/hr Insulin Aspart (Novolog Insulin Sliding Scale) 0 units SUBQ Q6H [facility]; Protocol Stop: 05/22/18 15:59 Last Admin: 03/26/18 09:22 Dose: Not Given Lactobacillus Rhamnosus (Culturelle 15b) 1 each PO DAILY [facility] Stop: 05/25/18 08:59 Last Admin: 03/26/18 08:02 Dose: Not Given Lactulose (Cephulac) 10 gm GT DAILY PRN PRN Reason: Constipation Last Admin: 03/22/18 13:47 Dose: 10 gm Magnesium Hydroxide (Milk Of Magnesia) 30 ml GT Q72H PRN PRN Reason: Constipation Stop: 05/20/18 10:48 Metoprolol Tartrate (Lopressor) 12.5 mg GT QPM [facility] Stop: 05/20/18 16:59 Last Admin: 03/25/18 16:31 Dose: Not Given Miscellaneous (Ppn Per Pharmacy) 1 ea MC PRN PRN PRN Reason: PROTOCOL Stop: 05/21/18 14:48 Miscellaneous (Probiotic Screen) 1 ea MC PRN PRN PRN Reason: PROTOCOL Stop: 05/24/18 17:10 Nystatin (Mycostatin Cream) 1 appl TP DAILY [facility] Stop: 05/22/18 08:59 Last Admin: 03/26/18 08:33 Dose: 1 appl Petrolatum (Zinc Oxide) 1 appl TP HS [facility] Stop: 05/21/18 20:59 Last Admin: 03/25/18 21:06 Dose: 1 appl Sodium Phosphate (Fleet Enema) 135 ml RC Q96H PRN PRN Reason: IF DULCOLAX INEFFECTIVE Stop: 05/20/18 10:46 Lab - Result Diagrams 04/10/18 04:40 04/10/18 04:40 continue Jevity @ 30 ml/hr maintain on Cipro monitor for fever No residuals Nutritional Asmnt/Malnutr-PDOC - Dietary Evaluation Malnutrition Findings (Please click <Entered> for more info): Nutritional Asmnt/Malnutrition Start: 03/21/18 13: 29 Text: Status: Complete Freq: Protocol: Document 03/21/18 13:29 LCHENG (Rec: 03/21/18 13:45 LCHENG [email or web address]) Nutritional Asmnt/Malnutrition Patient General Information Nutritional Screening High Risk Consult Diagnosis displacement of Gtube, Gtube site cellulitis Pertinent Medical Hx/Surgical Hx HTN, PUD?GERD, seizures, hepatitis B and C, developmentally disabled, quadriplegic Subjective Information Consult reiceved for shayna score 11. Pt seen in bed, non verbal noted. Per nurse pt is tolerating current tube feeding. CALEB Rdz asked about TF rate since pt was receiving Jevity 1.5 at [facility] and our hospital only carries Jevity 1.2. Current Diet Order/ Nutrition Support Jevity 1.2 at 40ml/hr x 20hr, providing 960kcal and 44g protein Pertinent Medications oscal w/vit D, colace, nacl 0. 9%, vancomycin Pertinent Labs 2/4 Cl 108, Cr 0.4 2/3 Cr 0.4, glucose 109, alb 3 .6 Nutritional Hx/Data Height 1.6 m Height (Calculated Centimeters) 160.0 Current Weight (lbs) 45.359 kg Weight (Calculated Kilograms) 45.4 Weight (Calculated Grams) 53885.2 [place] Body Weight 115 Body Mass Index (BMI) 17.6 Weight Status Underweight GI Symptoms GI Symptoms None Last BM not indicated Usual diet at home Jevity 1.5 at 40ml/hr x 20hr at [facility] Skin Integrity/Comment: cellulitis reddened to Gtube site shayna 11 Estimated Nutritional Goals Calories/Kcals/Kg 25-30 IBW 52kg Kcals Calculated [id number] Protein g/k-1.2 Protein Calculated 52-62 Fluid: ml 1300-1560ml (1ml/kcal) Nutritional Problem 1. Problem Problem inadequate intake from enteral feeding Etiology current TF regimen not meeting nutritional needs Signs/Symptoms: current TF providing 960kcal and 44g protein Malnutrition Related to Morbid Obesity Malnutrition related to morbid obesity No Intervention/Recommendation Comments 1. Recommend to increase TF rate to Jevity 1.2 at 55ml/hr x 20hr. It provides 1320kcal, 61g protein, 888ml free water, meeting 100% of nutritional needs. RN Kajal notified. 2. Monitor TF rate, tolerance, wt, skin integrity and labs 3. F/U as high risk in 2-3 days, 2/5-2/6 Expected Outcomes/Goals Expected Outcomes/Goals 1. Pt to meet at least 90% of nutritional needs via nutrition support with tolerance 2. Wt stability, skin to remain intact, labs to approach WNL.
--- NOTE | 2018-04-10 17:38 | Infectious Disease Prog Note ---
Infectious Disease Subjective - Review of Systems Service Date: 04/10/18 Subjective: doing better. Infectious Disease Objective - Results Result Diagrams: 04/11/18 04:45 04/11/18 04:45 Recent Labs: Laboratory Last Values WBC 14.2 Th/cmm (4.8-10.8) H 04/10/18 04:40 RBC 3.79 Mil/cmm (3.80-5.10) L 04/10/18 04:40 Hgb 12.4 gm/dL (12-16) 04/10/18 04:40 Hct 36.9 % (41.0-60) L 04/10/18 04:40 MCV 97.5 fl (81-100) 04/10/18 04:40 MCH 32.8 pg (27.0-31.0) H 04/10/18 04:40 MCHC Differential 33.6 pg (28.0-36.0) 04/10/18 04:40 RDW 11.0 % (11.5-20.0) L 04/10/18 04:40 Plt Count 200 Th/cmm (150-400) 04/10/18 04:40 MPV 10.8 fl 04/10/18 04:40 Add Manual Diff YES 04/09/18 04:10 Neutrophils % 75.2 % (40.0-80.0) 04/10/18 04:40 Band Neutrophils % 1 % (0-10) 04/09/18 04:10 Lymphocytes % 12.1 % (20.0-50.0) L 04/10/18 04:40 Monocytes % 11.3 % (2.0-10.0) H 04/10/18 04:40 Eosinophils % 0.9 % (0.0-5.0) 04/10/18 04:40 Basophils % 0.5 % (0.0-2.0) 04/10/18 04:40 Neutrophils (Manual) 82 % (40-80) H 04/09/18 04:10 Lymphocytes 10 % (20-50) L 04/09/18 04:10 Monocytes 6 % (2-10) 04/09/18 04:10 Eosinophils 1 % (0-5) 04/09/18 04:10 ESR 41 mm/hr (0-30) H 03/22/18 04:50 PT 10.6 SECONDS (9.5-11.5) 04/08/18 05:30 INR 1.02 (0.5-1.4) 04/08/18 05:30 Specimen Source art 04/09/18 14:57 Sample Site Left Radial 04/09/18 14:57 pH 7.45 (7.35-7.45) 04/09/18 14:57 pCO2 33.7 mmHg (35.0-45.0) L 04/09/18 14:57 pO2 104.0 mmHg (80.0-100.0) H 04/09/18 14:57 HCO3 22.9 mEq/L (20.0-26.0) 04/09/18 14:57 Base Excess -0.3 mEq/L (-3.0-3.0) 04/09/18 14:57 O2 Saturation 98.0 % (92.0-100.0) 04/09/18 14:57 Herman Test pos 04/09/18 14:57 Vent Rate na 04/09/18 14:57 Inspired O2 30 04/09/18 14:57 Tidal Volume na 04/09/18 14:57 PEEP na 04/09/18 14:57 Pressure (ins/psv/peep) na 04/09/18 14:57 Critical Value RNinofranco 04/09/18 14:57 Sodium 138 mEq/L (136-145) 04/10/18 04:40 Potassium 3.9 mEq/L (3.5-5.1) 04/10/18 04:40 Chloride 104 mEq/L (98-107) 04/10/18 04:40 Carbon Dioxide 26.8 mEq/L (21.0-31.0) 04/10/18 04:40 Anion Gap 11.1 (7.0-16.0) 04/10/18 04:40 BUN 12 mg/dL (7-25) 04/10/18 04:40 Creatinine 0.3 mg/dL (0.6-1.2) L 04/10/18 04:40 Est GFR ( Amer) > 60.0 ml/min (>90) 04/10/18 04:40 Est GFR (Non-Af Amer) > 60.0 ml/min 04/10/18 04:40 BUN/Creatinine Ratio 40.0 04/10/18 04:40 Glucose 133 mg/dL (70-105) H 04/10/18 04:40 POC Glucose 147 MG/DL (70 - 105) H 04/10/18 16:43 Whole Bld Lactic Acid 1.20 mmol/L (0.60-1.99) 03/20/18 19:15 Calcium 8.0 mg/dL (8.6-10.3) L 04/10/18 04:40 Phosphorus 2.6 mg/dL (2.5-5.0) 04/10/18 04:40 Magnesium 2.3 mg/dL (1.9-2.7) 04/10/18 04:40 Total Bilirubin 0.4 mg/dL (0.3-1.0) 04/05/18 04:35 Direct Bilirubin 0.47 mg/dL (0.0-0.2) H 03/29/18 04:35 AST 36 U/L (13-39) 04/05/18 04:35 ALT 38 U/L (7-52) 04/05/18 04:35 Alkaline Phosphatase 85 U/L (34-104) 04/05/18 04:35 C-Reactive Protein < 0.2 mg/dL (0.0-0.9) 03/22/18 04:50 Total Protein 6.8 gm/dL (6.0-8.3) 04/05/18 04:35 Albumin 3.2 gm/dL (3.7-5.3) L 04/05/18 04:35 Globulin 3.6 gm/dL 04/05/18 04:35 Albumin/Globulin Ratio 0.9 (1.0-1.8) L 04/05/18 04:35 Prealbumin 13 mg/dL (10-36) 04/05/18 04:35 Triglycerides 109 mg/dL (<150) 04/05/18 04:35 Cholesterol 143 mg/dL (<200) 04/05/18 04:35 LDL Cholesterol Direct 87 mg/dL (75-193) 03/21/18 04:45 HDL Cholesterol 65 mg/dL (23-92) 03/21/18 04:45 TSH 1.11 uIU/ml (0.34-5.60) 03/21/18 04:45 Vancomycin Trough 14.4 ug/mL (5-10) H 03/24/18 20:28 - Physical Exam Vitals and I&O: Vital Signs Temp 97.6 F 04/10/18 16:00 Pulse 110 04/10/18 17:00 Resp 17 04/10/18 17:00 BP 113/58 04/10/18 17:00 Pulse Ox 98 04/10/18 17:00 Intake & Output 04/09/18 04/10/18 04/10/18 18:59 06:59 18:59 Intake Total 1205 2580 Output Total 20 Balance 1205 2560 Weight (lbs) 36.968 kg 37.195 kg Intake: Intake, IV Amount 305 355 Ciprofloxacin 400mg 200 200 Premix PB 400 mg In 200 ml @ 200 mls/hr IV Q12HR [facility] Rx#:[id number] Levetiracetam 500 mg In 105 105 Sodium Chloride 0.9% 100 ml @ 400 mls/hr IV Q12H [facility] Rx#:[id number] Mag Sulfate 2gm/50mL 50 Premix 2 gm In 50 ml @ 25 mls/hr IV X1 ONE Rx#: [id number] Oral 0 Tube Feeding 60 TPN/PPN 900 1725 Other 440 Output: Other 20 Other: # Voids 3 3 # Bowel Movements 0 0 Weight Source Bedscale Bedscale Active Medications: Current Medications Acetaminophen (Tylenol 650mg/20.3ml Suspension) 650 mg GT Q4HR PRN PRN Reason: Pain Or Fever >100 Stop: 05/20/18 10:46 Albuterol/Ipratropium (Duoneb Neb) 3 ml HHN [id number] PRN PRN Reason: sob Stop: 05/20/18 10:46 Last Admin: 04/08/18 14:39 Dose: 3 ml Albuterol/Ipratropium (Duoneb Neb) 3 ml HHN Q6HRT [facility] Stop: 06/07/18 18:59 Last Admin: 04/10/18 12:13 Dose: 3 ml Bisacodyl (Dulcolax 10 Mg Supp) 10 mg RC Q96H PRN PRN Reason: Constipation Stop: 05/20/18 10:46 Last Admin: 03/22/18 19:42 Dose: 10 mg Calcium/Vitamin D (Oscal W/Vitamin D) 2 tab GT BID [facility] Stop: 05/31/18 08:59 Last Admin: 04/10/18 09:27 Dose: 2 tab Carbamazepine (Tegretol) 400 mg GT Q12HR@0900,2100 [facility] Stop: 05/20/18 10:59 Last Admin: 04/10/18 09:27 Dose: 400 mg Chlorhexidine Gluconate (Peridex) 15 ml MM 0800,2000 [facility] Stop: 06/07/18 19:59 Last Admin: 04/10/18 09:28 Dose: Not Given Diltiazem HCl (Cardizem) 30 mg PO Q8HR [facility] Stop: 06/09/18 20:59 Diltiazem HCl (Cardizem) 10 mg IVP Q4H PRN PRN Reason: Tachycardia Stop: 06/09/18 14:59 Docusate Sodium (Colace) 200 mg GT BID [facility] Stop: 05/20/18 10:59 Last Admin: 04/10/18 09:27 Dose: 200 mg Hydralazine HCl (Apresoline 20 Mg/Ml) 20 mg IV Q6HR PRN PRN Reason: SBP>160 Stop: 05/23/18 13:11 Levetiracetam 500 mg/ Sodium (Chloride) 105 mls @ 400 mls/hr IV Q12H [facility] Stop: 05/21/18 22:59 Last Admin: 04/10/18 11:11 Dose: 400 mls/hr Multivitamins/Minerals 10 ml/Chromium/Copper/Manganese/Zinc 1 ml/ Dextrose/ Amino Acids/Electrolytes/ Fat Emulsion Intravenous 1,800 mls @ 75 mls/hr IV .Q24H [facility] Stop: 06/08/18 10:14 Last Admin: 04/10/18 01:23 Dose: 75 mls/hr Ciprofloxacin (Cipro 400mg Premix Pb) 400 mg in 200 mls @ 200 mls/hr IV Q12HR [facility] Stop: 06/09/18 09:30 Last Admin: 04/10/18 09:41 Dose: 200 mls/hr Insulin Human Lispro (Humalog Insulin Sliding Scale) 0 units SUBQ Q6H [facility]; Protocol Stop: 05/22/18 15:59 Last Admin: 04/10/18 16:56 Dose: Not Given Lactobacillus Rhamnosus (Culturelle 15b) 1 each PO DAILY [facility] Stop: 05/25/18 08:59 Last Admin: 04/10/18 09:27 Dose: 1 each Lactulose (Cephulac) 10 gm GT DAILY PRN PRN Reason: Constipation Last Admin: 03/22/18 13:47 Dose: 10 gm Magnesium Hydroxide (Milk Of Magnesia) 30 ml GT Q72H PRN PRN Reason: Constipation Stop: 05/20/18 10:48 Metoprolol Tartrate (Lopressor) 5 mg IV Q6HR [facility] Stop: 06/07/18 17:59 Last Admin: 04/10/18 12:59 Dose: Not Given Miscellaneous (Probiotic Screen) 1 ea MC PRN PRN PRN Reason: PROTOCOL Stop: 05/24/18 17:10 Miscellaneous (Tpn Per Pharmacy) 1 ea PRN PRN PRN Reason: PROTOCOL Stop: 06/08/18 10:25 Morphine Sulfate (Morphine) 1 mg IVP Q4HR PRN PRN Reason: Pain (Moderate) Stop: 06/07/18 17:30 Last Admin: 04/10/18 12:59 Dose: 1 mg Nystatin/Triamcinolone Acetonide (Mycolog Ii Cream) 1 appl TP BID [facility] Stop: 06/06/18 10:29 Last Admin: 04/10/18 09:27 Dose: 1 appl Petrolatum (Zinc Oxide) 1 appl TP HS [facility] Stop: 05/21/18 20:59 Last Admin: 04/10/18 04:48 Dose: Not Given Sodium Phosphate (Fleet Enema) 135 ml RC Q96H PRN PRN Reason: IF DULCOLAX INEFFECTIVE Stop: 05/20/18 10:46 General: no acute distress, well developed, well nourished HEENT: atraumatic, normocephalic, PERRLA, EOMI Neck: supple, no thyromegaly Cardiovascular: S1S2, regular Lungs: clear to auscultation bilaterally, clear to percussion - Procedures Procedures: Procedures Procedure Code Date ASPIR CURETT UTERUS NEC 69.59 06/12/11 CHANGE FEEDING DEVICE IN UP INTEST TRACT, SPINNER CONCRETE PIPE APPROACH [id number] 01/27/16 CHANGE GASTROSTOMY TUBE 11660 05/21/15 DILATION AND CURETTAGE 00688 06/12/11 EGD BIOPSY SINGLE/MULTIPLE 04214 07/15/16 EXCISION OF ABD SUBCU/FASCIA, OPEN APPROACH [id number] 03/20/18 EXCISION OF ABDOMINAL WALL, OPEN APPROACH [id number] 03/20/18 EXCISION OF STOMACH, ENDO, DIAGN [id number] 07/15/16 EXCISION OF STOMACH, OPEN APPROACH [id number] 03/20/18 INSERTION OF FEEDING DEVICE INTO STOMACH, ENDO [id number] 07/15/16 INSERTION OF FEEDING DEVICE INTO STOMACH, OPEN APPROACH [id number] 03/20/18 LAPARO PROC ABDM/PER/OMENT 99019 07/29/13 LAPAROSCOP APPENDECTOMY 47.01 07/29/13 LAPAROSCOP LYSIS-PERITONEAL ADHES 54.51 07/29/13 LAPAROSCOPY APPENDECTOMY 53050 07/29/13 RELEASE OMENTUM, OPEN APPROACH [id number] 03/20/18 REPLACE GASTROSTOMY TUBE 97.02 07/26/14 Infectious Disease Assmt/Plan - Assessment Assessment: 1. Abdominal wall cellulitis, excoriation. 2. Malposition of NGT. 3. Hepatitis C. 4. Hepatitis B. 5. G-tube malfunction. Currently receiving, TPN did 6. Seizure disorder. - Plan Plan: Continue symptomatic treatment. Wound care is the mainstay of the treatment. Dc cipro Nutritional Asmnt/Malnutr-PDOC - Dietary Evaluation Malnutrition Findings (Please click <Entered> for more info): Nutritional Asmnt/Malnutrition Start: 03/21/18 13: 29 Text: Status: Complete Freq: Protocol: Document 03/21/18 13:29 LCHENG (Rec: 03/21/18 13:45 LCHENG [email or web address]) Nutritional Asmnt/Malnutrition Patient General Information Nutritional Screening High Risk Consult Diagnosis displacement of Gtube, Gtube site cellulitis Pertinent Medical Hx/Surgical Hx HTN, PUD?GERD, seizures, hepatitis B and C, developmentally disabled, quadriplegic Subjective Information Consult reiceved for shayna score 11. Pt seen in bed, non verbal noted. Per nurse pt is tolerating current tube feeding. CALEB Rdz asked about TF rate since pt was receiving Jevity 1.5 at [facility] and our hospital only carries Jevity 1.2. Current Diet Order/ Nutrition Support Jevity 1.2 at 40ml/hr x 20hr, providing 960kcal and 44g protein Pertinent Medications oscal w/vit D, colace, nacl 0. 9%, vancomycin Pertinent Labs /4 Cl 108, Cr 0.4 2/3 Cr 0.4, glucose 109, alb 3 .6 Nutritional Hx/Data Height 1.6 m Height (Calculated Centimeters) 160.0 Current Weight (lbs) 45.359 kg Weight (Calculated Kilograms) 45.4 Weight (Calculated Grams) 88695.2 [place] Body Weight 115 Body Mass Index (BMI) 17.6 Weight Status Underweight GI Symptoms GI Symptoms None Last BM not indicated Usual diet at home Jevity 1.5 at 40ml/hr x 20hr at [facility] Skin Integrity/Comment: cellulitis reddened to Gtube site shayna 11 Estimated Nutritional Goals Calories/Kcals/Kg 25-30 IBW 52kg Kcals Calculated 6097-6262 Protein g/k-1.2 Protein Calculated 52-62 Fluid: ml 1300-1560ml (1ml/kcal) Nutritional Problem 1. Problem Problem inadequate intake from enteral feeding Etiology current TF regimen not meeting nutritional needs Signs/Symptoms: current TF providing 960kcal and 44g protein Malnutrition Related to Morbid Obesity Malnutrition related to morbid obesity No Intervention/Recommendation Comments 1. Recommend to increase TF rate to Jevity 1.2 at 55ml/hr x 20hr. It provides 1320kcal, 61g protein, 888ml free water, meeting 100% of nutritional needs. RN Kajal notified. 2. Monitor TF rate, tolerance, wt, skin integrity and labs 3. F/U as high risk in 2-3 days, 2/5-2/6 Expected Outcomes/Goals Expected Outcomes/Goals 1. Pt to meet at least 90% of nutritional needs via nutrition support with tolerance 2. Wt stability, skin to remain intact, labs to approach WNL.
[2018-04-10] MEDS: Diltiazem 5 mg/mL 5mL Vial IVP PRN (18:24)
[2018-04-10] MEDS ORDERED: Morphine Sulfate 2 mg/mL 1mL Syr IVP ONE (19:49)
[2018-04-10] MEDS: Diltiazem 30 mg Tab PO SCH (20:23)
[2018-04-11] MEDS: Metoprolol tartrate 1 mg/ml 5mL Amp IV SCH ×5 (00:11→23:00)
[2018-04-11] MEDS: Albuterol/Ipratropium Neb 3 ML AERS HHN SCH ×4 (00:51→19:19)
[2018-04-11] MEDS: INSULIN LISPRO SLIDING SCALE 100 UNITS/ML UNIT SUBQ SCH ×2 (05:00→10:35)
[2018-04-11] MEDS: Diltiazem 30 mg Tab PO SCH ×3 (05:08→20:19)
[2018-04-11 05:09] LABS: % BASOPHILS 0.4 % (0.0-2.0); % EOSINOPHILS 1.8 % (0.0-5.0); % LYMPHOCYTES 16.2 % (20.0-50.0); % MONOCYTES 7.6 % (2.0-10.0); EOSINOPHILE ABSOLUTE 0.2 Th/cmm (0.1-0.4); HEMATOCRIT 33.2 % (41.0-60); HEMOGLOBIN 11.1 gm/dL (12-16); LYMPHOCYTE ABSOLUTE 1.7 Th/cmm (1.5-3.0); MEAN CELL VOLUME 97.6 fl (81-100); MEAN CORPUSCULAR HEMOGLOBIN 32.6 pg (27.0-31.0); MEAN CORPUSCULAR HGB CONC 33.4 pg (28.0-36.0); MONOCYTE ABSOLUTE 0.8 Th/cmm (0.3-1.0); NEUTROPHILE ABSOLUTE 7.7 Th/cmm (1.8-8.0); PLATELET COUNT 185 Th/cmm (150-400); RED CELL DISTRIBUTION WIDTH 11.3 % (11.5-20.0); WHITE BLOOD COUNT 10.4 Th/cmm (4.8-10.8)
[2018-04-11 05:50] LABS: ANION GAP 9.9 (7.0-16.0); BUN - UREA NITROGEN 21 mg/dL (7-25); CALCIUM SERUM 7.9 mg/dL (8.6-10.3); CARBON DIOXIDE 28.6 mEq/L (21.0-31.0); CHLORIDE 105 mEq/L (98-107); CREATININE - SERUM 0.3 mg/dL (0.6-1.2); GFR AFRICAN-AMERICAN > 60.0 ml/min (>90); GFR NON AFRICAN-AMERICAN > 60.0 ml/min; GLUCOSE 126 mg/dL (70-105); MAGNESIUM 1.7 mg/dL (1.9-2.7); PHOSPHOROUS 3.5 mg/dL (2.5-5.0); POTASSIUM SERUM 4.5 mEq/L (3.5-5.1); SODIUM SERUM 139 mEq/L (136-145)
--- NOTE | 2018-04-11 06:15 | Progress Notes ---
DATE: 04/10/2018 SURGICAL PROGRESS NOTE TIME: 1:08 p.m. OBJECTIVE: VITAL SIGNS: The patient is afebrile, does have some tachycardia but blood pressure is stable. GENERAL: She is resting comfortably in bed. CHEST: Clear to auscultation bilaterally. CARDIAC: Regular rate. ABDOMEN: Incision is clean and dry. G-tube is intact. Tube feeds have been restarted, tolerating it well. Residuals are low. No recorded bowel movement recently. NEUROVASCULAR AND EXTREMITIES: Otherwise normal. LABORATORY AND DIAGNOSTIC DATA: White blood cell count down to 14.2, H and H is 12 and 36.9, platelet count is 200. The Chem-7 is otherwise unremarkable. IMPRESSION AND PLAN: Overall stable postop. Afebrile. Leukocytosis down trending. The patient is still on antibiotics with ciprofloxacin. Tube feeds are being tolerated so far and can be advanced to goal rate as necessary. Dressing changed earlier today and stable wound. Cellulitis of the previous G-tube site is improving and no further drainage. JOB# [id number]
[2018-04-11] MEDS: Diltiazem 5 mg/mL 5mL Vial IVP PRN ×2 (07:59→16:28)
[2018-04-11] MEDS: Docusate Sodium 100 mg/10 mL UD GT SCH ×2 (08:45→16:28)
[2018-04-11] MEDS: Lactobacillus Rhamnosus GG 15 Billion CFU CAP.SPRINK PO SCH (08:45)
[2018-04-11] MEDS: carBAMazepine 200 mg/10 mL UDC GT SCH ×2 (08:45→20:18)
[2018-04-11] MEDS: Calcium Carb/Vit D 500 mg/200 U Tab GT SCH ×2 (08:47→16:28)
[2018-04-11] MEDS: Chlorhexidine Gluconate 0.12% 15mL Mouthwash MM SCH ×2 (08:55→20:16)
[2018-04-11] MEDS ORDERED: Mag Sulfate 2gm/50mL Premix 2 GM/50 ML BAG IV ONE (09:17)
--- NOTE | 2018-04-11 09:17 | Internal Medicine Prog Note ---
Internal Medicine Subjective - Subjective Service Date: 04/11/18 (ABOVE MOTED AND REVIEWED. BRITNEY JEVITY 1.2 @ 50CC/HOUR. ON O2 @2L/MIN) Patient is:: awake, non-verbal Per staff patient has:: no adverse event Internal Medicine Objective - Results Result Diagrams: 04/11/18 04:45 04/11/18 04:45 Recent Labs: Laboratory Last Values WBC 10.4 Th/cmm (4.8-10.8) 04/11/18 04:45 RBC 3.40 Mil/cmm (3.80-5.10) L 04/11/18 04:45 Hgb 11.1 gm/dL (12-16) L 04/11/18 04:45 Hct 33.2 % (41.0-60) L 04/11/18 04:45 MCV 97.6 fl (81-100) 04/11/18 04:45 MCH 32.6 pg (27.0-31.0) H 04/11/18 04:45 MCHC Differential 33.4 pg (28.0-36.0) 04/11/18 04:45 RDW 11.3 % (11.5-20.0) L 04/11/18 04:45 Plt Count 185 Th/cmm (150-400) 04/11/18 04:45 MPV 10.0 fl 04/11/18 04:45 Add Manual Diff YES 04/09/18 04:10 Neutrophils % 74.0 % (40.0-80.0) 04/11/18 04:45 Band Neutrophils % 1 % (0-10) 04/09/18 04:10 Lymphocytes % 16.2 % (20.0-50.0) L 04/11/18 04:45 Monocytes % 7.6 % (2.0-10.0) 04/11/18 04:45 Eosinophils % 1.8 % (0.0-5.0) 04/11/18 04:45 Basophils % 0.4 % (0.0-2.0) 04/11/18 04:45 Neutrophils (Manual) 82 % (40-80) H 04/09/18 04:10 Lymphocytes 10 % (20-50) L 04/09/18 04:10 Monocytes 6 % (2-10) 04/09/18 04:10 Eosinophils 1 % (0-5) 04/09/18 04:10 ESR 41 mm/hr (0-30) H 03/22/18 04:50 PT 10.6 SECONDS (9.5-11.5) 04/08/18 05:30 INR 1.02 (0.5-1.4) 04/08/18 05:30 Specimen Source art 04/09/18 14:57 Sample Site Left Radial 04/09/18 14:57 pH 7.45 (7.35-7.45) 04/09/18 14:57 pCO2 33.7 mmHg (35.0-45.0) L 04/09/18 14:57 pO2 104.0 mmHg (80.0-100.0) H 04/09/18 14:57 HCO3 22.9 mEq/L (20.0-26.0) 04/09/18 14:57 Base Excess -0.3 mEq/L (-3.0-3.0) 04/09/18 14:57 O2 Saturation 98.0 % (92.0-100.0) 04/09/18 14:57 Herman Test pos 04/09/18 14:57 Vent Rate na 04/09/18 14:57 Inspired O2 30 04/09/18 14:57 Tidal Volume na 04/09/18 14:57 PEEP na 04/09/18 14:57 Pressure (ins/psv/peep) na 04/09/18 14:57 Critical Value RNinofranco 04/09/18 14:57 Sodium 139 mEq/L (136-145) 04/11/18 04:45 Potassium 4.5 mEq/L (3.5-5.1) 04/11/18 04:45 Chloride 105 mEq/L (98-107) 04/11/18 04:45 Carbon Dioxide 28.6 mEq/L (21.0-31.0) 04/11/18 04:45 Anion Gap 9.9 (7.0-16.0) 04/11/18 04:45 BUN 21 mg/dL (7-25) 04/11/18 04:45 Creatinine 0.3 mg/dL (0.6-1.2) L 04/11/18 04:45 Est GFR ( Amer) > 60.0 ml/min (>90) 04/11/18 04:45 Est GFR (Non-Af Amer) > 60.0 ml/min 04/11/18 04:45 BUN/Creatinine Ratio 70.0 04/11/18 04:45 Glucose 126 mg/dL (70-105) H 04/11/18 04:45 POC Glucose 106 MG/DL (70 - 105) H 04/11/18 05:05 Whole Bld Lactic Acid 1.20 mmol/L (0.60-1.99) 03/20/18 19:15 Calcium 7.9 mg/dL (8.6-10.3) L 04/11/18 04:45 Phosphorus 3.5 mg/dL (2.5-5.0) 04/11/18 04:45 Magnesium 1.7 mg/dL (1.9-2.7) L 04/11/18 04:45 Total Bilirubin 0.4 mg/dL (0.3-1.0) 04/05/18 04:35 Direct Bilirubin 0.47 mg/dL (0.0-0.2) H 03/29/18 04:35 AST 36 U/L (13-39) 04/05/18 04:35 ALT 38 U/L (7-52) 04/05/18 04:35 Alkaline Phosphatase 85 U/L (34-104) 04/05/18 04:35 C-Reactive Protein < 0.2 mg/dL (0.0-0.9) 03/22/18 04:50 Total Protein 6.8 gm/dL (6.0-8.3) 04/05/18 04:35 Albumin 3.2 gm/dL (3.7-5.3) L 04/05/18 04:35 Globulin 3.6 gm/dL 04/05/18 04:35 Albumin/Globulin Ratio 0.9 (1.0-1.8) L 04/05/18 04:35 Prealbumin 13 mg/dL (10-36) 04/05/18 04:35 Triglycerides 109 mg/dL (<150) 04/05/18 04:35 Cholesterol 143 mg/dL (<200) 04/05/18 04:35 LDL Cholesterol Direct 87 mg/dL (75-193) 03/21/18 04:45 HDL Cholesterol 65 mg/dL (23-92) 03/21/18 04:45 TSH 1.11 uIU/ml (0.34-5.60) 03/21/18 04:45 Vancomycin Trough 14.4 ug/mL (5-10) H 03/24/18 20:28 - Physical Exam Vitals and I&O: Vital Signs Temp 97.5 F 04/11/18 04:00 Pulse 123 04/11/18 07:59 Resp 17 04/11/18 06:54 BP 100/73 04/11/18 06:00 Pulse Ox 98 04/11/18 06:54 Intake & Output 04/10/18 04/11/18 04/11/18 18:59 06:59 18:59 Intake Total 685 1825 Output Total 50 20 Balance 635 1805 Weight (lbs) 37.195 kg 37.875 kg Intake: Intake, IV Amount 105 1135 Levetiracetam 500 mg In 105 105 Sodium Chloride 0.9% 100 ml @ 400 mls/hr IV Q12H [facility] Rx#:[id number] Multivitamin Inj 10 ml 1030 Trace Element 1 ml In Dextrose 10% 289 ml In Amino Acids 15% 1,000 ml In Intralipids 20% 500 ml @ 75 mls/hr IV .Q24H [facility] Rx#:[id number] Oral 0 0 Tube Feeding 380 440 TPN/PPN 150 Other 200 100 Output: Urine 50 20 Other: # Voids 2 3 # Bowel Movements 0 0 Weight Source Bedscale Bedscale Active Medications: Current Medications Acetaminophen (Tylenol 650mg/20.3ml Suspension) 650 mg GT Q4HR PRN PRN Reason: Pain Or Fever >100 Stop: 05/20/18 10:46 Acetylcysteine (Mucomyst 20%) 3 ml HHN Q6HRT [facility] Stop: 06/09/18 18:59 Last Admin: 04/11/18 06:54 Dose: 3 ml Albuterol/Ipratropium (Duoneb Neb) 3 ml HHN [id number] PRN PRN Reason: sob Stop: 05/20/18 10:46 Last Admin: 04/08/18 14:39 Dose: 3 ml Albuterol/Ipratropium (Duoneb Neb) 3 ml HHN Q6HRT [facility] Stop: 06/07/18 18:59 Last Admin: 04/11/18 06:54 Dose: 3 ml Bisacodyl (Dulcolax 10 Mg Supp) 10 mg RC Q96H PRN PRN Reason: Constipation Stop: 05/20/18 10:46 Last Admin: 03/22/18 19:42 Dose: 10 mg Calcium/Vitamin D (Oscal W/Vitamin D) 2 tab GT BID [facility] Stop: 05/31/18 08:59 Last Admin: 04/11/18 08:47 Dose: 2 tab Carbamazepine (Tegretol) 400 mg GT Q12HR@0900,2100 [facility] Stop: 05/20/18 10:59 Last Admin: 04/11/18 08:45 Dose: 400 mg Chlorhexidine Gluconate (Peridex) 15 ml MM 0800,2000 [facility] Stop: 06/07/18 19:59 Last Admin: 04/11/18 08:55 Dose: Not Given Diltiazem HCl (Cardizem) 30 mg PO Q8HR [facility] Stop: 06/09/18 20:59 Last Admin: 04/11/18 05:08 Dose: 30 mg Diltiazem HCl (Cardizem) 10 mg IVP Q4H PRN PRN Reason: Tachycardia Stop: 06/09/18 14:59 Last Admin: 04/11/18 07:59 Dose: 10 mg Docusate Sodium (Colace) 200 mg GT BID [facility] Stop: 05/20/18 10:59 Last Admin: 04/11/18 08:45 Dose: 200 mg Hydralazine HCl (Apresoline 20 Mg/Ml) 20 mg IV Q6HR PRN PRN Reason: SBP>160 Stop: 05/23/18 13:11 Levetiracetam 500 mg/ Sodium (Chloride) 105 mls @ 400 mls/hr IV Q12H [facility] Stop: 05/21/18 22:59 Last Infusion: 04/10/18 23:16 Dose: Infused Insulin Human Lispro (Humalog Insulin Sliding Scale) 0 units SUBQ Q6H [facility]; Protocol Stop: 05/22/18 15:59 Last Admin: 04/11/18 05:00 Dose: Not Given Lactobacillus Rhamnosus (Culturelle 15b) 1 each PO DAILY [facility] Stop: 05/25/18 08:59 Last Admin: 04/11/18 08:45 Dose: 1 each Lactulose (Cephulac) 10 gm GT DAILY PRN PRN Reason: Constipation Last Admin: 03/22/18 13:47 Dose: 10 gm Magnesium Hydroxide (Milk Of Magnesia) 30 ml GT Q72H PRN PRN Reason: Constipation Stop: 05/20/18 10:48 Metoprolol Tartrate (Lopressor) 5 mg IV Q6HR [facility] Stop: 06/07/18 17:59 Last Admin: 04/11/18 06:00 Dose: Not Given Miscellaneous (Probiotic Screen) 1 ea MC PRN PRN PRN Reason: PROTOCOL Stop: 05/24/18 17:10 Morphine Sulfate (Morphine) 1 mg IVP Q4HR PRN PRN Reason: Pain (Moderate) Stop: 06/07/18 17:30 Last Admin: 04/10/18 18:58 Dose: 1 mg Multivitamins/Minerals (Theragran M) 15 ml GT DAILY [facility] Stop: 06/10/18 08:59 Nystatin/Triamcinolone Acetonide (Mycolog Ii Cream) 1 appl TP BID [facility] Stop: 06/06/18 10:29 Last Admin: 04/11/18 08:49 Dose: 1 appl Petrolatum (Zinc Oxide) 1 appl TP HS [facility] Stop: 05/21/18 20:59 Last Admin: 04/10/18 21:00 Dose: Not Given Sodium Phosphate (Fleet Enema) 135 ml RC Q96H PRN PRN Reason: IF DULCOLAX INEFFECTIVE Stop: 05/20/18 10:46 General: thin, NAD HEENT: NC/AT, PERRLA, EOMI Neck: No JVD, no No thyromegaly Lungs: CTAB Cardiovascular: RRR Abdomen: soft, non-tender, +GT, other (GT SITE WITH IMPROVED ERYTHEMA), no +GT - redness, no +GT - discharge Extremities: clear Neurological: no change, spastic - Procedures Procedures: Procedures Procedure Code Date ASPIR CURETT UTERUS NEC 69.59 06/12/11 CHANGE FEEDING DEVICE IN UP INTEST TRACT, DRY CURER APPROACH [id number] 01/27/16 CHANGE GASTROSTOMY TUBE 43387 05/21/15 DILATION AND CURETTAGE 20276 06/12/11 EGD BIOPSY SINGLE/MULTIPLE 72263 07/15/16 EXCISION OF ABD SUBCU/FASCIA, OPEN APPROACH [id number] 03/20/18 EXCISION OF ABDOMINAL WALL, OPEN APPROACH [id number] 03/20/18 EXCISION OF STOMACH, ENDO, DIAGN [id number] 07/15/16 EXCISION OF STOMACH, OPEN APPROACH [id number] 03/20/18 INSERTION OF FEEDING DEVICE INTO STOMACH, ENDO [id number] 07/15/16 INSERTION OF FEEDING DEVICE INTO STOMACH, OPEN APPROACH [id number] 03/20/18 [facility] PROC ABDM/PER/OMENT 13869 07/29/13 LAPAROSCOP APPENDECTOMY 47.01 07/29/13 LAPAROSCOP LYSIS-PERITONEAL ADHES 54.51 07/29/13 LAPAROSCOPY APPENDECTOMY 05712 07/29/13 RELEASE OMENTUM, OPEN APPROACH [id number] 03/20/18 REPLACE GASTROSTOMY TUBE 97.02 07/26/14 Internal Medicine Assmt/Plan - Assessment Assessment: 1. GTUBE MALFUNCTION WITH LEAKAGE-S/P REPLACEMENT 2. GT SITE CELLULITIS/DRAINAGE (GC FISTULA)-S/P MINI EXLAP WITH GC TAKE DOWN () 3. COMPLEX WOUND INFX-PSEUDOMONAS AERUGINOSA 3. HISTORY OF DYSPHAGIA-PEG PLACEMENT 4. HX OF CONSTIPATION 5. HYPONATREMIA--RESOLVED 6. HX OF SEIZURE DISORDER-STABLE 7. HX OF INTELLECTUAL DISABILITY 8. S/P PICC LINE PLACEMENT 9. ELECTROLYTE IMBALANCE-STABLE/MONITOR. - Plan Plan: CONT WITH CURRENT ICU TX PLAN AND MGT--TRANSFER TO TELE CONT WITH CURRENT PEG FEEDS/MONITOR FOR RESIDUALS/OFF TPN CONT WITH IV ABXS (CIPRO), AND LOCAL WOUND CARE CONT WITH OTHER MEDS SCHEDULED MONITOR LYTES. GI/ID FU Nutritional Asmnt/Malnutr-PDOC - Dietary Evaluation Malnutrition Findings (Please click <Entered> for more info): Nutritional Asmnt/Malnutrition Start: 03/21/18 13: 29 Text: Status: Complete Freq: Protocol: Document 03/21/18 13:29 LCHENG (Rec: 03/21/18 13:45 [id number]) Nutritional Asmnt/Malnutrition Patient General Information Nutritional Screening High Risk Consult Diagnosis displacement of Gtube, Gtube site cellulitis Pertinent Medical Hx/Surgical Hx HTN, PUD?GERD, seizures, hepatitis B and C, developmentally disabled, quadriplegic Subjective Information Consult reiceved for shayna score 11. Pt seen in bed, non verbal noted. Per nurse pt is tolerating current tube feeding. CALEB Rdz asked about TF rate since [facility]ev[facility] and [facility] only carries Jevity 1.2. Current Diet Order/ Nutrition Support Jevity 1.2 at 40ml/hr x 20hr, providing 960kcal and 44g protein Pertinent Medications oscal w/vit D, colace, nacl 0. 9%, vancomycin Pertinent Labs 2/4 Cl 108, Cr 0.4 2/3 Cr 0.4, glucose 109, alb 3 .6 Nutritional Hx/Data Height 1.6 m Height (Calculated Centimeters) 160.0 Current Weight (lbs) 45.359 kg Weight (Calculated Kilograms) 45.4 Weight (Calculated Grams) 52474.2 [place] Body Weight 115 Body Mass Index (BMI) 17.6 Weight Status Underweight GI Symptoms GI Symptoms None Last BM not indicated Usual diet at home Jevity 1.5 at 40ml/hr x 20hr at [facility] Skin Integrity/Comment: cellulitis reddened to Gtube site shayna 11 Estimated Nutritional Goals Calories/Kcals/Kg 25-30 IBW 52kg Kcals Calculated 2052-5380 Protein g/k-1.2 Protein Calculated 52-62 Fluid: ml 1300-1560ml (1ml/kcal) Nutritional Problem 1. Problem Problem inadequate intake from enteral feeding Etiology current TF regimen not meeting nutritional needs Signs/Symptoms: current TF providing 960kcal and 44g protein Malnutrition Related to Morbid Obesity Malnutrition related to morbid obesity No Intervention/Recommendation Comments 1. Recommend to increase TF rate to Jevity 1.2 at 55ml/hr x 20hr. It provides 1320kcal, 61g protein, 888ml free water, meeting 100% of nutritional needs. CALEB Rdz notified. 2. Monitor TF rate, tolerance, wt, skin integrity and labs 3. F/U as high risk in 2-3 days, 2/5-2/6 Expected Outcomes/Goals Expected Outcomes/Goals 1. Pt to meet at least 90% of nutritional needs via nutrition support with tolerance 2. Wt stability, skin to remain intact, labs to approach WNL.
[2018-04-11] MEDS: Multivitamin w/ Minerals 15 mL UDC GT SCH (10:31)
--- NOTE | 2018-04-11 12:03 | Infectious Disease Prog Note ---
Infectious Disease Subjective - Review of Systems Service Date: 04/11/18 Subjective: doing better. Infectious Disease Objective - Results Result Diagrams: 04/11/18 04:45 04/11/18 04:45 Recent Labs: Laboratory Last Values WBC 10.4 Th/cmm (4.8-10.8) 04/11/18 04:45 RBC 3.40 Mil/cmm (3.80-5.10) L 04/11/18 04:45 Hgb 11.1 gm/dL (12-16) L 04/11/18 04:45 Hct 33.2 % (41.0-60) L 04/11/18 04:45 MCV 97.6 fl (81-100) 04/11/18 04:45 MCH 32.6 pg (27.0-31.0) H 04/11/18 04:45 MCHC Differential 33.4 pg (28.0-36.0) 04/11/18 04:45 RDW 11.3 % (11.5-20.0) L 04/11/18 04:45 Plt Count 185 Th/cmm (150-400) 04/11/18 04:45 MPV 10.0 fl 04/11/18 04:45 Add Manual Diff YES 04/09/18 04:10 Neutrophils % 74.0 % (40.0-80.0) 04/11/18 04:45 Band Neutrophils % 1 % (0-10) 04/09/18 04:10 Lymphocytes % 16.2 % (20.0-50.0) L 04/11/18 04:45 Monocytes % 7.6 % (2.0-10.0) 04/11/18 04:45 Eosinophils % 1.8 % (0.0-5.0) 04/11/18 04:45 Basophils % 0.4 % (0.0-2.0) 04/11/18 04:45 Neutrophils (Manual) 82 % (40-80) H 04/09/18 04:10 Lymphocytes 10 % (20-50) L 04/09/18 04:10 Monocytes 6 % (2-10) 04/09/18 04:10 Eosinophils 1 % (0-5) 04/09/18 04:10 ESR 41 mm/hr (0-30) H 03/22/18 04:50 PT 10.6 SECONDS (9.5-11.5) 04/08/18 05:30 INR 1.02 (0.5-1.4) 04/08/18 05:30 Specimen Source art 04/09/18 14:57 Sample Site Left Radial 04/09/18 14:57 pH 7.45 (7.35-7.45) 04/09/18 14:57 pCO2 33.7 mmHg (35.0-45.0) L 04/09/18 14:57 pO2 104.0 mmHg (80.0-100.0) H 04/09/18 14:57 HCO3 22.9 mEq/L (20.0-26.0) 04/09/18 14:57 Base Excess -0.3 mEq/L (-3.0-3.0) 04/09/18 14:57 O2 Saturation 98.0 % (92.0-100.0) 04/09/18 14:57 Herman Test pos 04/09/18 14:57 Vent Rate na 04/09/18 14:57 Inspired O2 30 04/09/18 14:57 Tidal Volume na 04/09/18 14:57 PEEP na 04/09/18 14:57 Pressure (ins/psv/peep) na 04/09/18 14:57 Critical Value RNinofranco 04/09/18 14:57 Sodium 139 mEq/L (136-145) 04/11/18 04:45 Potassium 4.5 mEq/L (3.5-5.1) 04/11/18 04:45 Chloride 105 mEq/L (98-107) 04/11/18 04:45 Carbon Dioxide 28.6 mEq/L (21.0-31.0) 04/11/18 04:45 Anion Gap 9.9 (7.0-16.0) 04/11/18 04:45 BUN 21 mg/dL (7-25) 04/11/18 04:45 Creatinine 0.3 mg/dL (0.6-1.2) L 04/11/18 04:45 Est GFR ( Amer) > 60.0 ml/min (>90) 04/11/18 04:45 Est GFR (Non-Af Amer) > 60.0 ml/min 04/11/18 04:45 BUN/Creatinine Ratio 70.0 04/11/18 04:45 Glucose 126 mg/dL (70-105) H 04/11/18 04:45 POC Glucose 120 MG/DL (70 - 105) H 04/11/18 10:34 Whole Bld Lactic Acid 1.20 mmol/L (0.60-1.99) 03/20/18 19:15 Calcium 7.9 mg/dL (8.6-10.3) L 04/11/18 04:45 Phosphorus 3.5 mg/dL (2.5-5.0) 04/11/18 04:45 Magnesium 1.7 mg/dL (1.9-2.7) L 04/11/18 04:45 Total Bilirubin 0.4 mg/dL (0.3-1.0) 04/05/18 04:35 Direct Bilirubin 0.47 mg/dL (0.0-0.2) H 03/29/18 04:35 AST 36 U/L (13-39) 04/05/18 04:35 ALT 38 U/L (7-52) 04/05/18 04:35 Alkaline Phosphatase 85 U/L (34-104) 04/05/18 04:35 C-Reactive Protein < 0.2 mg/dL (0.0-0.9) 03/22/18 04:50 Total Protein 6.8 gm/dL (6.0-8.3) 04/05/18 04:35 Albumin 3.2 gm/dL (3.7-5.3) L 04/05/18 04:35 Globulin 3.6 gm/dL 04/05/18 04:35 Albumin/Globulin Ratio 0.9 (1.0-1.8) L 04/05/18 04:35 Prealbumin 13 mg/dL (10-36) 04/05/18 04:35 Triglycerides 109 mg/dL (<150) 04/05/18 04:35 Cholesterol 143 mg/dL (<200) 04/05/18 04:35 LDL Cholesterol Direct 87 mg/dL (75-193) 03/21/18 04:45 HDL Cholesterol 65 mg/dL (23-92) 03/21/18 04:45 TSH 1.11 uIU/ml (0.34-5.60) 03/21/18 04:45 Vancomycin Trough 14.4 ug/mL (5-10) H 03/24/18 20:28 - Physical Exam Vitals and I&O: Vital Signs Temp 99.4 F 04/11/18 11:00 Pulse 123 04/11/18 11:00 Resp 26 04/11/18 11:00 BP 110/52 04/11/18 11:00 Pulse Ox 98 04/11/18 11:00 Intake & Output 04/10/18 04/11/18 04/11/18 18:59 06:59 18:59 Intake Total 685 1825 Output Total 50 20 Balance 635 1805 Weight (lbs) 37.195 kg 37.875 kg Intake: Intake, IV Amount 105 1135 Levetiracetam 500 mg In 105 105 Sodium Chloride 0.9% 100 ml @ 400 mls/hr IV Q12H [facility] Rx#:[id number] Multivitamin Inj 10 ml 1030 Trace Element 1 ml In Dextrose 10% 289 ml In Amino Acids 15% 1,000 ml In Intralipids 20% 500 ml @ 75 mls/hr IV .Q24H [facility] Rx#:[id number] Oral 0 0 Tube Feeding 380 440 TPN/PPN 150 Other 200 100 Output: Urine 50 20 Other: # Voids 2 3 # Bowel Movements 0 0 Weight Source Bedscale Bedscale Active Medications: Current Medications Acetaminophen (Tylenol 650mg/20.3ml Suspension) 650 mg GT Q4HR PRN PRN Reason: Pain Or Fever >100 Stop: 05/20/18 10:46 Acetylcysteine (Mucomyst 20%) 3 ml HHN Q6HRT [facility] Stop: 06/09/18 18:59 Last Admin: 04/11/18 06:54 Dose: 3 ml Albuterol/Ipratropium (Duoneb Neb) 3 ml HHN [id number] PRN PRN Reason: sob Stop: 05/20/18 10:46 Last Admin: 04/08/18 14:39 Dose: 3 ml Albuterol/Ipratropium (Duoneb Neb) 3 ml HHN Q6HRT [facility] Stop: 06/07/18 18:59 Last Admin: 04/11/18 06:54 Dose: 3 ml Bisacodyl (Dulcolax 10 Mg Supp) 10 mg RC Q96H PRN PRN Reason: Constipation Stop: 05/20/18 10:46 Last Admin: 03/22/18 19:42 Dose: 10 mg Calcium/Vitamin D (Oscal W/Vitamin D) 2 tab GT BID [facility] Stop: 05/31/18 08:59 Last Admin: 04/11/18 08:47 Dose: 2 tab Carbamazepine (Tegretol) 400 mg GT Q12HR@0900,2100 [facility] Stop: 05/20/18 10:59 Last Admin: 04/11/18 08:45 Dose: 400 mg Chlorhexidine Gluconate (Peridex) 15 ml MM 0800,1999 [facility] Stop: 06/07/18 19:59 Last Admin: 04/11/18 08:55 Dose: Not Given Diltiazem HCl (Cardizem) 30 mg PO Q8HR [facility] Stop: 06/09/18 20:59 Last Admin: 04/11/18 05:08 Dose: 30 mg Diltiazem HCl (Cardizem) 10 mg IVP Q4H PRN PRN Reason: Tachycardia Stop: 06/09/18 14:59 Last Admin: 04/11/18 07:59 Dose: 10 mg Docusate Sodium (Colace) 200 mg GT BID [facility] Stop: 05/20/18 10:59 Last Admin: 04/11/18 08:45 Dose: 200 mg Hydralazine HCl (Apresoline 20 Mg/Ml) 20 mg IV Q6HR PRN PRN Reason: SBP>160 Stop: 05/23/18 13:11 Levetiracetam 500 mg/ Sodium (Chloride) 105 mls @ 400 mls/hr IV Q12H [facility] Stop: 05/21/18 22:59 Last Infusion: 04/10/18 23:16 Dose: Infused Lactobacillus Rhamnosus (Culturelle 15b) 1 each PO DAILY [facility] Stop: 05/25/18 08:59 Last Admin: 04/11/18 08:45 Dose: 1 each Lactulose (Cephulac) 10 gm GT DAILY PRN PRN Reason: Constipation Last Admin: 03/22/18 13:47 Dose: 10 gm Magnesium Hydroxide (Milk Of Magnesia) 30 ml GT Q72H PRN PRN Reason: Constipation Stop: 05/20/18 10:48 Metoprolol Tartrate (Lopressor) 5 mg IV Q6HR [facility] Stop: 06/07/18 17:59 Last Admin: 04/11/18 06:00 Dose: Not Given Miscellaneous (Probiotic Screen) 1 ea MC PRN PRN PRN Reason: PROTOCOL Stop: 05/24/18 17:10 Morphine Sulfate (Morphine) 1 mg IVP Q4HR PRN PRN Reason: Pain (Moderate) Stop: 06/07/18 17:30 Last Admin: 04/10/18 18:58 Dose: 1 mg Multivitamins/Minerals (Theragran M) 15 ml GT DAILY [facility] Stop: 06/10/18 08:59 Last Admin: 04/11/18 10:31 Dose: 15 ml Nystatin/Triamcinolone Acetonide (Mycolog Ii Cream) 1 appl TP BID [facility] Stop: 06/06/18 10:29 Last Admin: 04/11/18 08:49 Dose: 1 appl Petrolatum (Zinc Oxide) 1 appl TP HS [facility] Stop: 05/21/18 20:59 Last Admin: 04/10/18 21:00 Dose: Not Given Sodium Phosphate (Fleet Enema) 135 ml RC Q96H PRN PRN Reason: IF DULCOLAX INEFFECTIVE Stop: 05/20/18 10:46 General: no acute distress, cachectic HEENT: atraumatic, normocephalic, PERRLA, EOMI Neck: supple, no thyromegaly Cardiovascular: S1S2, regular Lungs: clear to auscultation bilaterally, clear to percussion Abdomen: soft, other (g tube, redness almost improved.), no tender, no distended , no rebound Extremities: no cyanosis, no clubbing, no edema Neurological: awake, alert, oriented Skin: intact - Procedures Procedures: Procedures Procedure Code Date ASPIR CURETT UTERUS NEC 69.59 06/12/11 CHANGE FEEDING DEVICE IN UP INTEST TRACT, [employer]ER APPROACH [id number] 01/27/16 CHANGE GASTROSTOMY TUBE 62322 05/21/15 DILATION AND CURETTAGE 14045 06/12/11 EGD BIOPSY SINGLE/MULTIPLE 01086 07/15/16 EXCISION OF ABD SUBCU/FASCIA, OPEN APPROACH [id number] 03/20/18 EXCISION OF ABDOMINAL WALL, OPEN APPROACH [id number] 03/20/18 EXCISION OF STOMACH, ENDO, DIAGN [id number] 07/15/16 EXCISION OF STOMACH, OPEN APPROACH [id number] 03/20/18 INSERTION OF FEEDING DEVICE INTO STOMACH, ENDO [id number] 07/15/16 INSERTION OF FEEDING DEVICE INTO STOMACH, OPEN APPROACH [id number] 03/20/18 LAPARO PROC ABDM/PER/OMENT 25061 07/29/13 LAPAROSCOP APPENDECTOMY 47.01 07/29/13 LAPAROSCOP LYSIS-PERITONEAL ADHES 54.51 07/29/13 LAPAROSCOPY APPENDECTOMY 95491 07/29/13 RELEASE OMENTUM, OPEN APPROACH [id number] 03/20/18 REPLACE GASTROSTOMY TUBE 97.02 07/26/14 Infectious Disease Assmt/Plan - Assessment Assessment: 1. Abdominal wall cellulitis, excoriation. 2. Malposition of NGT. 3. Hepatitis C. 4. Hepatitis B. 5. G-tube malfunction. Currently receiving, TPN did 6. Seizure disorder. - Plan Plan: Continue symptomatic treatment. off antibiotics. Wound care is the mainstay of the treatment. hep panel Afp Nutritional Asmnt/Malnutr-PDOC - Dietary Evaluation Malnutrition Findings (Please click <Entered> for more info): Nutritional Asmnt/Malnutrition Start: 03/21/18 13: 29 Text: Status: Complete Freq: Protocol: Document 03/21/18 13:29 LCHENG (Rec: 03/21/18 13:45 LCHENG [email or web address]) Nutritional Asmnt/Malnutrition Patient General Information Nutritional Screening High Risk Consult Diagnosis displacement of Gtube, Gtube site cellulitis Pertinent Medical Hx/Surgical Hx HTN, PUD?GERD, seizures, hepatitis B and C, developmentally disabled, quadriplegic Subjective Information Consult reiceved for shayna score 11. Pt seen in bed, non verbal noted. Per nurse pt is tolerating current tube feeding. CALEB Rdz asked about TF rate since pt was receiving Jevity 1.5 at [facility] and our hospital only carries Jevity 1.2. Current Diet Order/ Nutrition Support Jevity 1.2 at 40ml/hr x 20hr, providing 960kcal and 44g protein Pertinent Medications oscal w/vit D, colace, nacl 0. 9%, vancomycin Pertinent Labs 2/4 Cl 108, Cr 0.4 2/3 Cr 0.4, glucose 109, alb 3 .6 Nutritional Hx/Data Height 1.6 m Height (Calculated Centimeters) 160.0 Current Weight (lbs) 45.359 kg Weight (Calculated Kilograms) 45.4 Weight (Calculated Grams) 02144.2 [place] Body Weight 115 Body Mass Index (BMI) 17.6 Weight Status Underweight GI Symptoms GI Symptoms None Last BM not indicated Usual diet at home Jevity 1.5 at 40ml/hr x 20hr at [facility] Skin Integrity/Comment: cellulitis reddened to Gtube site shayna 11 Estimated Nutritional Goals Calories/Kcals/Kg 25-30 IBW 52kg Kcals Calculated 8782-5117 Protein g/k-1.2 Protein Calculated 52-62 Fluid: ml 1300-1560ml (1ml/kcal) Nutritional Problem 1. Problem Problem inadequate intake from enteral feeding Etiology current TF regimen not meeting nutritional needs Signs/Symptoms: current TF providing 960kcal and 44g protein Malnutrition Related to Morbid Obesity Malnutrition related to morbid obesity No Intervention/Recommendation Comments 1. Recommend to increase TF rate to Jevity 1.2 at 55ml/hr x 20hr. It provides 1320kcal, 61g protein, 888ml free water, meeting 100% of nutritional needs. CALEB Rdz notified. 2. Monitor TF rate, tolerance, wt, skin integrity and labs 3. F/U as high risk in 2-3 days, 2/5-2/6 Expected Outcomes/Goals Expected Outcomes/Goals 1. Pt to meet at least 90% of nutritional needs via nutrition support with tolerance 2. Wt stability, skin to remain intact, labs to approach WNL.
--- NOTE | 2018-04-11 12:11 | General Progress Note ---
Subjective - Review of Systems Service Date: 04/11/18 Subjective: Patient is extubated More awake Tolerating G-tube feeding Objective - Results Result Diagrams: 04/11/18 04:45 04/11/18 04:45 Recent Labs: Laboratory Last Values WBC 10.4 Th/cmm (4.8-10.8) 04/11/18 04:45 RBC 3.40 Mil/cmm (3.80-5.10) L 04/11/18 04:45 Hgb 11.1 gm/dL (12-16) L 04/11/18 04:45 Hct 33.2 % (41.0-60) L 04/11/18 04:45 MCV 97.6 fl (81-100) 04/11/18 04:45 MCH 32.6 pg (27.0-31.0) H 04/11/18 04:45 MCHC Differential 33.4 pg (28.0-36.0) 04/11/18 04:45 RDW 11.3 % (11.5-20.0) L 04/11/18 04:45 Plt Count 185 Th/cmm (150-400) 04/11/18 04:45 MPV 10.0 fl 04/11/18 04:45 Add Manual Diff YES 04/09/18 04:10 Neutrophils % 74.0 % (40.0-80.0) 04/11/18 04:45 Band Neutrophils % 1 % (0-10) 04/09/18 04:10 Lymphocytes % 16.2 % (20.0-50.0) L 04/11/18 04:45 Monocytes % 7.6 % (2.0-10.0) 04/11/18 04:45 Eosinophils % 1.8 % (0.0-5.0) 04/11/18 04:45 Basophils % 0.4 % (0.0-2.0) 04/11/18 04:45 Neutrophils (Manual) 82 % (40-80) H 04/09/18 04:10 Lymphocytes 10 % (20-50) L 04/09/18 04:10 Monocytes 6 % (2-10) 04/09/18 04:10 Eosinophils 1 % (0-5) 04/09/18 04:10 ESR 41 mm/hr (0-30) H 03/22/18 04:50 PT 10.6 SECONDS (9.5-11.5) 04/08/18 05:30 INR 1.02 (0.5-1.4) 04/08/18 05:30 Specimen Source art 04/09/18 14:57 Sample Site Left Radial 04/09/18 14:57 pH 7.45 (7.35-7.45) 04/09/18 14:57 pCO2 33.7 mmHg (35.0-45.0) L 04/09/18 14:57 pO2 104.0 mmHg (80.0-100.0) H 04/09/18 14:57 HCO3 22.9 mEq/L (20.0-26.0) 04/09/18 14:57 Base Excess -0.3 mEq/L (-3.0-3.0) 04/09/18 14:57 O2 Saturation 98.0 % (92.0-100.0) 04/09/18 14:57 Herman Test pos 04/09/18 14:57 Vent Rate na 04/09/18 14:57 Inspired O2 30 04/09/18 14:57 Tidal Volume na 04/09/18 14:57 PEEP na 04/09/18 14:57 Pressure (ins/psv/peep) na 04/09/18 14:57 Critical Value RNinofranco 04/09/18 14:57 Sodium 139 mEq/L (136-145) 04/11/18 04:45 Potassium 4.5 mEq/L (3.5-5.1) 04/11/18 04:45 Chloride 105 mEq/L (98-107) 04/11/18 04:45 Carbon Dioxide 28.6 mEq/L (21.0-31.0) 04/11/18 04:45 Anion Gap 9.9 (7.0-16.0) 04/11/18 04:45 BUN 21 mg/dL (7-25) 04/11/18 04:45 Creatinine 0.3 mg/dL (0.6-1.2) L 04/11/18 04:45 Est GFR ( Amer) > 60.0 ml/min (>90) 04/11/18 04:45 Est GFR (Non-Af Amer) > 60.0 ml/min 04/11/18 04:45 BUN/Creatinine Ratio 70.0 04/11/18 04:45 Glucose 126 mg/dL (70-105) H 04/11/18 04:45 POC Glucose 120 MG/DL (70 - 105) H 04/11/18 10:34 Whole Bld Lactic Acid 1.20 mmol/L (0.60-1.99) 03/20/18 19:15 Calcium 7.9 mg/dL (8.6-10.3) L 04/11/18 04:45 Phosphorus 3.5 mg/dL (2.5-5.0) 04/11/18 04:45 Magnesium 1.7 mg/dL (1.9-2.7) L 04/11/18 04:45 Total Bilirubin 0.4 mg/dL (0.3-1.0) 04/05/18 04:35 Direct Bilirubin 0.47 mg/dL (0.0-0.2) H 03/29/18 04:35 AST 36 U/L (13-39) 04/05/18 04:35 ALT 38 U/L (7-52) 04/05/18 04:35 Alkaline Phosphatase 85 U/L (34-104) 04/05/18 04:35 C-Reactive Protein < 0.2 mg/dL (0.0-0.9) 03/22/18 04:50 Total Protein 6.8 gm/dL (6.0-8.3) 04/05/18 04:35 Albumin 3.2 gm/dL (3.7-5.3) L 04/05/18 04:35 Globulin 3.6 gm/dL 04/05/18 04:35 Albumin/Globulin Ratio 0.9 (1.0-1.8) L 04/05/18 04:35 Prealbumin 13 mg/dL (10-36) 04/05/18 04:35 Triglycerides 109 mg/dL (<150) 04/05/18 04:35 Cholesterol 143 mg/dL (<200) 04/05/18 04:35 LDL Cholesterol Direct 87 mg/dL (75-193) 03/21/18 04:45 HDL Cholesterol 65 mg/dL (23-92) 03/21/18 04:45 TSH 1.11 uIU/ml (0.34-5.60) 03/21/18 04:45 Vancomycin Trough 14.4 ug/mL (5-10) H 03/24/18 20:28 - Physical Exam Vitals and I&O: Vital Signs Temp 99.4 F 04/11/18 11:00 Pulse 123 04/11/18 11:00 Resp 26 04/11/18 11:00 BP 110/52 04/11/18 11:00 Pulse Ox 98 04/11/18 11:00 Intake & Output 04/10/18 04/11/18 04/11/18 18:59 06:59 18:59 Intake Total 685 1825 Output Total 50 20 Balance 635 1805 Weight (lbs) 37.195 kg 37.875 kg Intake: Intake, IV Amount 105 1135 Levetiracetam 500 mg In 105 105 Sodium Chloride 0.9% 100 ml @ 400 mls/hr IV Q12H [facility] Rx#:[id number] Multivitamin Inj 10 ml 1030 Trace Element 1 ml In Dextrose 10% 289 ml In Amino Acids 15% 1,000 ml In Intralipids 20% 500 ml @ 75 mls/hr IV .Q24H [facility] Rx#:[id number] Oral 0 0 Tube Feeding 380 440 TPN/PPN 150 Other 200 100 Output: Urine 50 20 Other: # Voids 2 3 # Bowel Movements 0 0 Weight Source Bedscale Bedscale Active Medications: Current Medications Acetaminophen (Tylenol 650mg/20.3ml Suspension) 650 mg GT Q4HR PRN PRN Reason: Pain Or Fever >100 Stop: 05/20/18 10:46 Acetylcysteine (Mucomyst 20%) 3 ml HHN Q6HRT [facility] Stop: 06/09/18 18:59 Last Admin: 04/11/18 06:54 Dose: 3 ml Albuterol/Ipratropium (Duoneb Neb) 3 ml HHN [id number] PRN PRN Reason: sob Stop: 05/20/18 10:46 Last Admin: 04/08/18 14:39 Dose: 3 ml Albuterol/Ipratropium (Duoneb Neb) 3 ml HHN Q6HRT [facility] Stop: 06/07/18 18:59 Last Admin: 04/11/18 06:54 Dose: 3 ml Bisacodyl (Dulcolax 10 Mg Supp) 10 mg RC Q96H PRN PRN Reason: Constipation Stop: 05/20/18 10:46 Last Admin: 03/22/18 19:42 Dose: 10 mg Calcium/Vitamin D (Oscal W/Vitamin D) 2 tab GT BID [facility] Stop: 05/31/18 08:59 Last Admin: 04/11/18 08:47 Dose: 2 tab Carbamazepine (Tegretol) 400 mg GT Q12HR@0900,2100 [facility] Stop: 05/20/18 10:59 Last Admin: 04/11/18 08:45 Dose: 400 mg Chlorhexidine Gluconate (Peridex) 15 ml MM 0800,2000 [facility] Stop: 06/07/18 19:59 Last Admin: 04/11/18 08:55 Dose: Not Given Diltiazem HCl (Cardizem) 30 mg PO Q8HR [facility] Stop: 06/09/18 20:59 Last Admin: 04/11/18 05:08 Dose: 30 mg Diltiazem HCl (Cardizem) 10 mg IVP Q4H PRN PRN Reason: Tachycardia Stop: 06/09/18 14:59 Last Admin: 04/11/18 07:59 Dose: 10 mg Docusate Sodium (Colace) 200 mg GT BID [facility] Stop: 05/20/18 10:59 Last Admin: 04/11/18 08:45 Dose: 200 mg Hydralazine HCl (Apresoline 20 Mg/Ml) 20 mg IV Q6HR PRN PRN Reason: SBP>160 Stop: 05/23/18 13:11 Levetiracetam 500 mg/ Sodium (Chloride) 105 mls @ 400 mls/hr IV Q12H [facility] Stop: 05/21/18 22:59 Last Infusion: 04/10/18 23:16 Dose: Infused Lactobacillus Rhamnosus (Culturelle 15b) 1 each PO DAILY [facility] Stop: 05/25/18 08:59 Last Admin: 04/11/18 08:45 Dose: 1 each Lactulose (Cephulac) 10 gm GT DAILY PRN PRN Reason: Constipation Last Admin: 03/22/18 13:47 Dose: 10 gm Magnesium Hydroxide (Milk Of Magnesia) 30 ml GT Q72H PRN PRN Reason: Constipation Stop: 05/20/18 10:48 Metoprolol Tartrate (Lopressor) 5 mg IV Q6HR [facility] Stop: 06/07/18 17:59 Last Admin: 04/11/18 06:00 Dose: Not Given Miscellaneous (Probiotic Screen) 1 ea MC PRN PRN PRN Reason: PROTOCOL Stop: 05/24/18 17:10 Morphine Sulfate (Morphine) 1 mg IVP Q4HR PRN PRN Reason: Pain (Moderate) Stop: 06/07/18 17:30 Last Admin: 04/10/18 18:58 Dose: 1 mg Multivitamins/Minerals (Theragran M) 15 ml GT DAILY [facility] Stop: 06/10/18 08:59 Last Admin: 04/11/18 10:31 Dose: 15 ml Nystatin/Triamcinolone Acetonide (Mycolog Ii Cream) 1 appl TP BID [facility] Stop: 06/06/18 10:29 Last Admin: 04/11/18 08:49 Dose: 1 appl Petrolatum (Zinc Oxide) 1 appl TP HS [facility] Stop: 05/21/18 20:59 Last Admin: 04/10/18 21:00 Dose: Not Given Sodium Phosphate (Fleet Enema) 135 ml RC Q96H PRN PRN Reason: IF DULCOLAX INEFFECTIVE Stop: 05/20/18 10:46 General: No acute distress HEENT: Atraumatic Neck: Supple Cardiovascular: Regular rate Lungs: Clear to auscultation Abdomen: Bowel sounds, Soft, Other (G-tube in place), no Tender, no Distended, no Rebound, no Mass, no Guarding Extremities: no Edema Neurological: Sensation intact, Cranial nerves 3-12 NL, Reflexes 2+ Skin: Rash Psych/Mental Status: Mood NL - Procedures Procedures: Procedures Procedure Code Date ASPIR CURETT UTERUS NEC 69.59 06/12/11 CHANGE FEEDING DEVICE IN UP INTEST TRACT, 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 9F33LCM 01/27/16 CHANGE GASTROSTOMY TUBE 82310 05/21/15 DILATION AND CURETTAGE 92386 06/12/11 EGD BIOPSY SINGLE/MULTIPLE 84889 07/15/16 EXCISION OF ABD SUBCU/FASCIA, OPEN APPROACH [id number] 03/20/18 EXCISION OF ABDOMINAL WALL, OPEN APPROACH [id number] 03/20/18 EXCISION OF STOMACH, ENDO, DIAGN [id number] 07/15/16 EXCISION OF STOMACH, OPEN APPROACH [id number] 03/20/18 INSERTION OF FEEDING DEVICE INTO STOMACH, ENDO [id number] 07/15/16 INSERTION OF FEEDING DEVICE INTO STOMACH, OPEN APPROACH [id number] 03/20/18 LAPARO PROC ABDM/PER/OMENT 12026 07/29/13 LAPAROSCOP APPENDECTOMY 47.01 07/29/13 LAPAROSCOP LYSIS-PERITONEAL ADHES 54.51 07/29/13 LAPAROSCOPY APPENDECTOMY 29629 07/29/13 RELEASE OMENTUM, OPEN APPROACH [id number] 03/20/18 REPLACE GASTROSTOMY TUBE 97.02 07/26/14 Assessment/Plan - Assessment Assessment: G-tube cellulitis Gastrocutaneous fistula Hypernatremia Contractures both upper and lower extremity Protein calorie malnutrition Dementia Cholelithiasis Osteoporosis Patient had surgery laparotomy lysis of adhesion gastrocutaneous fistula and G- tube placement Hypertension Sinus tachycardia - Plan Plan: Patient on ventilator Lopressor 5 mg IV every 6 hours to control blood pressure and her heart rate Cardizem 30 mg every 8 hours Cardiac exam 10 mg IV every 4 hours when necessary to control the heart rate Nutritional Asmnt/Malnutr-PDOC - Dietary Evaluation Malnutrition Findings (Please click <Entered> for more info): Nutritional Asmnt/Malnutrition Start: 03/21/18 13: 29 Text: Status: Complete Freq: Protocol: Document 03/21/18 13:29 LCHENG (Rec: 03/21/18 13:45 LCHENG [email or web address]) Nutritional Asmnt/Malnutrition Patient General Information Nutritional Screening High Risk Consult Diagnosis displacement of Gtube, Gtube site cellulitis Pertinent Medical Hx/Surgical Hx HTN, PUD?GERD, seizures, hepatitis B and C, developmentally disabled, quadriplegic Subjective Information Consult reiceved for shayna score 11. Pt seen in bed, non verbal noted. Per nurse pt is tolerating current tube feeding. CALEB Rdz asked about TF rate since pt was receiving Jevity 1.5 at long term and our hospital only carries Jevity 1.2. Current Diet Order/ Nutrition Support Jevity 1.2 at 40ml/hr x 20hr, providing 960kcal and 44g protein Pertinent Medications oscal w/vit D, colace, nacl 0. 9%, vancomycin Pertinent Labs 2/4 Cl 108, Cr 0.4 2/3 Cr 0.4, glucose 109, alb 3 .6 Nutritional Hx/Data Height 1.6 m Height (Calculated Centimeters) 160.0 Current Weight (lbs) 45.359 kg Weight (Calculated Kilograms) 45.4 Weight (Calculated Grams) 63930.2 [place] Body Weight 115 Body Mass Index (BMI) 17.6 Weight Status Underweight GI Symptoms GI Symptoms None Last BM not indicated Usual diet at home Jevity 1.5 at 40ml/hr x 20hr at [facility] Skin Integrity/Comment: cellulitis reddened to Gtube site shayna 11 Estimated Nutritional Goals Calories/Kcals/Kg 25-30 IBW 52kg Kcals Calculated 3300-3711 Protein g/k-1.2 Protein Calculated 52-62 Fluid: ml 1300-1560ml (1ml/kcal) Nutritional Problem 1. Problem Problem inadequate intake from enteral feeding Etiology current TF regimen not meeting nutritional needs Signs/Symptoms: current TF providing 960kcal and 44g protein Malnutrition Related to Morbid Obesity Malnutrition related to morbid obesity No Intervention/Recommendation Comments 1. Recommend to increase TF rate to Jevity 1.2 at 55ml/hr x 20hr. It provides 1320kcal, 61g protein, 888ml free water, meeting 100% of nutritional needs. CALEB Rdz notified. 2. Monitor TF rate, tolerance, wt, skin integrity and labs 3. F/U as high risk in 2-3 days, 2/5-2/6 Expected Outcomes/Goals Expected Outcomes/Goals 1. Pt to meet at least 90% of nutritional needs via nutrition support with tolerance 2. Wt stability, skin to remain intact, labs to approach WNL.
--- NOTE | 2018-04-11 13:35 | Cardiology ---
04/07/[address] Loaiza. PROCEDURE: Echocardiogram. M-MODE ECHOCARDIOGRAM: Mitral valve, anterior leaflet of mitral valve shows normal excursion, EF velocity. Posterior leaflet of the mitral valve shows normal excursion. Left ventricular posterior wall shows increased thickness, normal excursion. Interventricular septum shows increased thickness, normal excursion. There is minimal hypertrophy of the left ventricle, ejection fraction 73%. Left atrium normal. Aortic root shows normal dimension, normal excursion of aortic leaflets. CONCLUSION: Minimal hypertrophy of the left ventricle, ejection fraction 73%. 2D ECHO: Long axis view showed normal size left ventricle with minimal hypertrophy of the left ventricle, ejection fraction 73%. Left atrium normal. Aortic root shows normal dimension, normal excursion of aortic leaflets. Short axis view of mitral valve normal. Short axis view of aortic valve normal. Apical four chamber view showed normal-sized left ventricle with minimal hypertrophy of the left ventricle. Left atrium normal. Right ventricular cavity, right atrium normal, no pericardial effusion. CONCLUSION: Minimal hypertrophy of the left ventricle, ejection fraction 73%. Doppler study shows some trace mitral regurgitation, trace tricuspid regurgitation. Right ventricular systolic pressure 29 mmHg. CONCLUSION: Trace mitral regurgitation, trace tricuspid regurgitation, ejection fraction 73%, minimal hypertrophy of the left ventricle. JOB# [id number]
--- NOTE | 2018-04-11 15:21 | Progress Notes ---
DATE: 04/10/2018 SUBJECTIVE: The patient appears to be doing okay. OBJECTIVE: GENERAL: No distress. VITAL SIGNS: Temperature 97.6, pulse 140, respirations 19, blood pressure 110/62, and saturation is 92-93%. CHEST: Good breath sounds, few rhonchi. HEART: Tachycardia. No murmurs. ABDOMEN: Soft. EXTREMITIES: No edema, LABORATORY DATA: WBC is 14.2 and hemoglobin 12.4. Sodium 130, potassium 3.9, BUN 12, and creatinine 0.3. IMPRESSION: 1. Respiratory failure. 2. Status post abdominal surgery. 3. Weakness. 4. Tachycardia. PLAN: 1. Continue antibiotics. 2. Change to Xopenex. 3. Mucomyst. 4. Heart rate control and followup chest x-ray. JOB# [id number] MTDD
--- NOTE | 2018-04-11 18:40 | GI Progress Note ---
Subjective - Review of Systems Service Date: 04/11/18 Events since last encounter: EVENTS NOTED Objective - Results Result Diagrams: 04/11/18 04:45 04/11/18 04:45 Recent Labs: Laboratory Last Values WBC 10.4 Th/cmm (4.8-10.8) 04/11/18 04:45 RBC 3.40 Mil/cmm (3.80-5.10) L 04/11/18 04:45 Hgb 11.1 gm/dL (12-16) L 04/11/18 04:45 Hct 33.2 % (41.0-60) L 04/11/18 04:45 MCV 97.6 fl (81-100) 04/11/18 04:45 MCH 32.6 pg (27.0-31.0) H 04/11/18 04:45 MCHC Differential 33.4 pg (28.0-36.0) 04/11/18 04:45 RDW 11.3 % (11.5-20.0) L 04/11/18 04:45 Plt Count 185 Th/cmm (150-400) 04/11/18 04:45 MPV 10.0 fl 04/11/18 04:45 Add Manual Diff YES 04/09/18 04:10 Neutrophils % 74.0 % (40.0-80.0) 04/11/18 04:45 Band Neutrophils % 1 % (0-10) 04/09/18 04:10 Lymphocytes % 16.2 % (20.0-50.0) L 04/11/18 04:45 Monocytes % 7.6 % (2.0-10.0) 04/11/18 04:45 Eosinophils % 1.8 % (0.0-5.0) 04/11/18 04:45 Basophils % 0.4 % (0.0-2.0) 04/11/18 04:45 Neutrophils (Manual) 82 % (40-80) H 04/09/18 04:10 Lymphocytes 10 % (20-50) L 04/09/18 04:10 Monocytes 6 % (2-10) 04/09/18 04:10 Eosinophils 1 % (0-5) 04/09/18 04:10 ESR 41 mm/hr (0-30) H 03/22/18 04:50 PT 10.6 SECONDS (9.5-11.5) 04/08/18 05:30 INR 1.02 (0.5-1.4) 04/08/18 05:30 Specimen Source art 04/09/18 14:57 Sample Site Left Radial 04/09/18 14:57 pH 7.45 (7.35-7.45) 04/09/18 14:57 pCO2 33.7 mmHg (35.0-45.0) L 04/09/18 14:57 pO2 104.0 mmHg (80.0-100.0) H 04/09/18 14:57 HCO3 22.9 mEq/L (20.0-26.0) 04/09/18 14:57 Base Excess -0.3 mEq/L (-3.0-3.0) 04/09/18 14:57 O2 Saturation 98.0 % (92.0-100.0) 04/09/18 14:57 Herman Test pos 04/09/18 14:57 Vent Rate na 04/09/18 14:57 Inspired O2 30 04/09/18 14:57 Tidal Volume na 04/09/18 14:57 PEEP na 04/09/18 14:57 Pressure (ins/psv/peep) na 04/09/18 14:57 Critical Value RNinofranco 04/09/18 14:57 Sodium 139 mEq/L (136-145) 04/11/18 04:45 Potassium 4.5 mEq/L (3.5-5.1) 04/11/18 04:45 Chloride 105 mEq/L (98-107) 04/11/18 04:45 Carbon Dioxide 28.6 mEq/L (21.0-31.0) 04/11/18 04:45 Anion Gap 9.9 (7.0-16.0) 04/11/18 04:45 BUN 21 mg/dL (7-25) 04/11/18 04:45 Creatinine 0.3 mg/dL (0.6-1.2) L 04/11/18 04:45 Est GFR ( Amer) > 60.0 ml/min (>90) 04/11/18 04:45 Est GFR (Non-Af Amer) > 60.0 ml/min 04/11/18 04:45 BUN/Creatinine Ratio 70.0 04/11/18 04:45 Glucose 126 mg/dL (70-105) H 04/11/18 04:45 POC Glucose 120 MG/DL (70 - 105) H 04/11/18 10:34 Whole Bld Lactic Acid 1.20 mmol/L (0.60-1.99) 03/20/18 19:15 Calcium 7.9 mg/dL (8.6-10.3) L 04/11/18 04:45 Phosphorus 3.5 mg/dL (2.5-5.0) 04/11/18 04:45 Magnesium 1.7 mg/dL (1.9-2.7) L 04/11/18 04:45 Total Bilirubin 0.4 mg/dL (0.3-1.0) 04/05/18 04:35 Direct Bilirubin 0.47 mg/dL (0.0-0.2) H 03/29/18 04:35 AST 36 U/L (13-39) 04/05/18 04:35 ALT 38 U/L (7-52) 04/05/18 04:35 Alkaline Phosphatase 85 U/L (34-104) 04/05/18 04:35 C-Reactive Protein < 0.2 mg/dL (0.0-0.9) 03/22/18 04:50 Total Protein 6.8 gm/dL (6.0-8.3) 04/05/18 04:35 Albumin 3.2 gm/dL (3.7-5.3) L 04/05/18 04:35 Globulin 3.6 gm/dL 04/05/18 04:35 Albumin/Globulin Ratio 0.9 (1.0-1.8) L 04/05/18 04:35 Prealbumin 13 mg/dL (10-36) 04/05/18 04:35 Triglycerides 109 mg/dL (<150) 04/05/18 04:35 Cholesterol 143 mg/dL (<200) 04/05/18 04:35 LDL Cholesterol Direct 87 mg/dL (75-193) 03/21/18 04:45 HDL Cholesterol 65 mg/dL (23-92) 03/21/18 04:45 TSH 1.11 uIU/ml (0.34-5.60) 03/21/18 04:45 Vancomycin Trough 14.4 ug/mL (5-10) H 03/24/18 20:28 - Physical Exam Vitals and I&O: Vital Signs Temp 97.8 F 04/11/18 18:00 Pulse 99 04/11/18 18:00 Resp 15 04/11/18 18:00 BP 90/50 04/11/18 18:00 Pulse Ox 99 04/11/18 18:00 Intake & Output 04/10/18 04/11/18 04/11/18 18:59 06:59 18:59 Intake Total 685 1825 500 Output Total 50 20 Balance 635 1805 500 Weight (lbs) 37.195 kg 37.875 kg 41.322 kg Intake: Intake, IV Amount 105 1135 Levetiracetam 500 mg In 105 105 Sodium Chloride 0.9% 100 ml @ 400 mls/hr IV Q12H [facility] Rx#:[id number] Multivitamin Inj 10 ml 1030 Trace Element 1 ml In Dextrose 10% 289 ml In Amino Acids 15% 1,000 ml In Intralipids 20% 500 ml @ 75 mls/hr IV .Q24H [facility] Rx#:[id number] Oral 0 0 0 Tube Feeding 380 440 500 TPN/PPN 150 Other 200 100 Output: Urine 50 20 Other: # Voids 2 3 1 # Bowel Movements 0 0 0 Weight Source Bedscale Bedscale Bedscale Active Medications: Current Medications Acetaminophen (Tylenol 650mg/20.3ml Suspension) 650 mg GT Q4HR PRN PRN Reason: Pain Or Fever >100 Stop: 05/20/18 10:46 Acetylcysteine (Mucomyst 20%) 3 ml HHN Q6HRT [facility] Stop: 06/09/18 18:59 Last Admin: 04/11/18 12:37 Dose: 3 ml Albuterol/Ipratropium (Duoneb Neb) 3 ml HHN [id number] PRN PRN Reason: sob Stop: 05/20/18 10:46 Last Admin: 04/08/18 14:39 Dose: 3 ml Albuterol/Ipratropium (Duoneb Neb) 3 ml HHN Q6HRT [facility] Stop: 06/07/18 18:59 Last Admin: 04/11/18 12:37 Dose: 3 ml Bisacodyl (Dulcolax 10 Mg Supp) 10 mg RC Q96H PRN PRN Reason: Constipation Stop: 05/20/18 10:46 Last Admin: 03/22/18 19:42 Dose: 10 mg Calcium/Vitamin D (Oscal W/Vitamin D) 2 tab GT BID [facility] Stop: 05/31/18 08:59 Last Admin: 04/11/18 16:28 Dose: 2 tab Carbamazepine (Tegretol) 400 mg GT Q12HR@0900,2100 [facility] Stop: 05/20/18 10:59 Last Admin: 04/11/18 08:45 Dose: 400 mg Chlorhexidine Gluconate (Peridex) 15 ml MM 0800,1999 [facility] Stop: 06/07/18 19:59 Last Admin: 04/11/18 08:55 Dose: Not Given Diltiazem HCl (Cardizem) 30 mg PO Q8HR [facility] Stop: 06/09/18 20:59 Last Admin: 04/11/18 12:23 Dose: 30 mg Diltiazem HCl (Cardizem) 10 mg IVP Q4H PRN PRN Reason: Tachycardia Stop: 06/09/18 14:59 Last Admin: 04/11/18 16:28 Dose: 10 mg Docusate Sodium (Colace) 200 mg GT BID [facility] Stop: 05/20/18 10:59 Last Admin: 04/11/18 16:28 Dose: 200 mg Hydralazine HCl (Apresoline 20 Mg/Ml) 20 mg IV Q6HR PRN PRN Reason: SBP>160 Stop: 05/23/18 13:11 Levetiracetam 500 mg/ Sodium (Chloride) 105 mls @ 400 mls/hr IV Q12H [facility] Stop: 05/21/18 22:59 Last Admin: 04/11/18 12:23 Dose: 400 mls/hr Lactobacillus Rhamnosus (Culturelle 15b) 1 each PO DAILY [facility] Stop: 05/25/18 08:59 Last Admin: 04/11/18 08:45 Dose: 1 each Lactulose (Cephulac) 10 gm GT DAILY PRN PRN Reason: Constipation Last Admin: 03/22/18 13:47 Dose: 10 gm Magnesium Hydroxide (Milk Of Magnesia) 30 ml GT Q72H PRN PRN Reason: Constipation Stop: 05/20/18 10:48 Metoprolol Tartrate (Lopressor) 5 mg IV Q6HR [facility] Stop: 06/07/18 17:59 Last Admin: 04/11/18 12:24 Dose: Not Given Miscellaneous (Probiotic Screen) 1 ea MC PRN PRN PRN Reason: PROTOCOL Stop: 05/24/18 17:10 Morphine Sulfate (Morphine) 1 mg IVP Q4HR PRN PRN Reason: Pain (Moderate) Stop: 06/07/18 17:30 Last Admin: 04/10/18 18:58 Dose: 1 mg Multivitamins/Minerals (Theragran M) 15 ml GT DAILY [facility] Stop: 06/10/18 08:59 Last Admin: 04/11/18 10:31 Dose: 15 ml Nystatin/Triamcinolone Acetonide (Mycolog Ii Cream) 1 appl TP BID [facility] Stop: 06/06/18 10:29 Last Admin: 04/11/18 16:29 Dose: 1 appl Petrolatum (Zinc Oxide) 1 appl TP HS [facility] Stop: 05/21/18 20:59 Last Admin: 04/10/18 21:00 Dose: Not Given Sodium Phosphate (Fleet Enema) 135 ml RC Q96H PRN PRN Reason: IF DULCOLAX INEFFECTIVE Stop: 05/20/18 10:46 General: No acute distress HEENT: Atraumatic Neck: Supple Cardiovascular: Regular rate Lungs: Clear to auscultation Abdomen: Bowel sounds, Soft, Other (G-tube in place), no Tender, no Distended, no Rebound, no Mass, no Guarding Extremities: no Edema Neurological: Sensation intact, Cranial nerves 3-12 NL, Reflexes 2+ Skin: Rash Psych/Mental Status: Mood NL - Procedures Procedures: Procedures Procedure Code Date ASPIR CURETT UTERUS NEC 69.59 06/12/11 CHANGE FEEDING DEVICE IN UP INTEST TRACT, WOOL WASHER APPROACH [id number] 01/27/16 CHANGE GASTROSTOMY TUBE 88093 05/21/15 DILATION AND CURETTAGE 45826 06/12/11 EGD BIOPSY SINGLE/MULTIPLE 77196 07/15/16 EXCISION OF ABD SUBCU/FASCIA, OPEN APPROACH [id number] 03/20/18 EXCISION OF ABDOMINAL WALL, OPEN APPROACH [id number] 03/20/18 EXCISION OF STOMACH, ENDO, DIAGN [id number] 07/15/16 EXCISION OF STOMACH, OPEN APPROACH [id number] 03/20/18 INSERTION OF FEEDING DEVICE INTO STOMACH, ENDO [id number] 07/15/16 INSERTION OF FEEDING DEVICE INTO STOMACH, OPEN APPROACH [id number] 03/20/18 LAPARO PROC ABDM/PER/OMENT 92353 07/29/13 LAPAROSCOP APPENDECTOMY 47.01 07/29/13 LAPAROSCOP LYSIS-PERITONEAL ADHES 54.51 07/29/13 LAPAROSCOPY APPENDECTOMY 17772 07/29/13 RELEASE OMENTUM, OPEN APPROACH [id number] 03/20/18 REPLACE GASTROSTOMY TUBE 97.02 07/26/14 Assessment/Plan - Assessment Assessment: Assessment: # G tube site cellulitis # Dysphagia # Developmental delay As of 03/25, the site looked worse thus the G tube was pulled. Will need to wait for the area to heal prior to inserting a new one On 03/30, there is still erythema and some leakage from the area. Unclear if proper wound care is being applied to this area. On 04/01, the site looks more inflamed. Does not appear to be leakage from NG feeding, but infection on the skin is not improving. on 04/02 - NG tube was pulled bc of tip extruding out of gc fistula site Plan: -appreciate surgical mangement -Start tube feeds per surgical recommendation -G tube support and care
[2018-04-11] MEDS: Zinc Oxide Ointment 60 gm TP SCH (20:20)
[2018-04-12] MEDS: Diltiazem 30 mg Tab PO SCH ×3 (04:53→22:05)
[2018-04-12] MEDS: Albuterol/Ipratropium Neb 3 ML AERS HHN SCH ×4 (06:21→19:27)
[2018-04-12] MEDS: Metoprolol tartrate 1 mg/ml 5mL Amp IV SCH ×3 (06:45→17:02)
[2018-04-12 07:07] LABS: % BASOPHILS 0.4 % (0.0-2.0); % LYMPHOCYTES 16.5 % (20.0-50.0); % NEUTROPHILS 68.1 % (40.0-80.0); EOSINOPHILE ABSOLUTE 0.5 Th/cmm (0.1-0.4); HEMATOCRIT 31.2 % (41.0-60); HEMOGLOBIN 10.3 gm/dL (12-16); LYMPHOCYTE ABSOLUTE 1.4 Th/cmm (1.5-3.0); MEAN CELL VOLUME 99.7 fl (81-100); MEAN CORPUSCULAR HGB CONC 33.1 pg (28.0-36.0); MONOCYTE ABSOLUTE 0.7 Th/cmm (0.3-1.0); NEUTROPHILE ABSOLUTE 5.6 Th/cmm (1.8-8.0); PLATELET COUNT 171 Th/cmm (150-400); RED BLOOD COUNT 3.13 Mil/cmm (3.80-5.10); RED CELL DISTRIBUTION WIDTH 11.4 % (11.5-20.0); WHITE BLOOD COUNT 8.2 Th/cmm (4.8-10.8)
[2018-04-12 07:28] LABS: ANION GAP 10.8 (7.0-16.0); BUN - UREA NITROGEN 19 mg/dL (7-25); CALCIUM SERUM 7.8 mg/dL (8.6-10.3); CARBON DIOXIDE 28.1 mEq/L (21.0-31.0); CHLORIDE 104 mEq/L (98-107); CREATININE - SERUM 0.3 mg/dL (0.6-1.2); GFR AFRICAN-AMERICAN > 60.0 ml/min (>90); GFR NON AFRICAN-AMERICAN > 60.0 ml/min; GLUCOSE 122 mg/dL (70-105); MAGNESIUM 1.6 mg/dL (1.9-2.7); POTASSIUM SERUM 3.9 mEq/L (3.5-5.1); SODIUM SERUM 139 mEq/L (136-145)
[2018-04-12] MEDS: carBAMazepine 200 mg/10 mL UDC GT SCH ×2 (08:48→22:06)
[2018-04-12] MEDS: Lactobacillus Rhamnosus GG 15 Billion CFU CAP.SPRINK PO SCH (08:49)
[2018-04-12] MEDS: Calcium Carb/Vit D 500 mg/200 U Tab GT SCH ×2 (08:49→16:55)
[2018-04-12] MEDS: Docusate Sodium 100 mg/10 mL UD GT SCH ×2 (08:49→16:55)
[2018-04-12] MEDS: Multivitamin w/ Minerals 15 mL UDC GT SCH (08:50)
--- NOTE | 2018-04-12 08:55 | Diagnostic Imaging Report ---
CHEST X-RAY: AP view INDICATION: Shortness of breath COMPARISON: Chest x-ray 04/09/2018 ankle KUB on 03/22/2018 FINDINGS: Prior ET tube is been removed. Left-sided PICC line is seen with tip in the cavoatrial junction. There appears to be interposed loops of bowel under the right hemidiaphragm. Postsurgical changes of the abdomen are noted. Left basal atelectasis is noted. No focal consolidation identified. IMPRESSION: Left basal atelectatic changes. Faint infiltrate of the left base cannot be excluded Interval extubation. Gaseous several loops of bowel with interposed loops of bowel under Syfert the right hemidiaphragm. No gross free air identified. Postsurgical changes of the abdomen are noted.
--- NOTE | 2018-04-12 09:06 | Progress Notes ---
DATE: 04/11/2018 PULMONARY PROGRESS NOTE SUBJECTIVE: The patient appears to be doing okay. No distress. OBJECTIVE: VITAL SIGNS: Temperature 97.8, pulse 90-110, respirations 18, blood pressure 90/50, saturation 94-99%. CHEST: Good breath sounds. Rhonchi bilaterally. HEART: Regular rate and rhythm. ABDOMEN: Soft. EXTREMITIES: No edema. ASSESSMENT: 1. Respiratory failure. 2. Pneumonia. 3. Dysphagia. 4. Weakness. 5. Tachycardia. 6. Status post abdominal surgery, poor airway clearance. 7. Mental disability. PLAN: 1. Continue nebulizer treatment. 2. Antibiotics. 3. Nasal suctioning and add CPT. JOB# [id number]
--- NOTE | 2018-04-12 11:38 | Internal Medicine Prog Note ---
Internal Medicine Subjective - Subjective Service Date: 04/12/18 (no acute events per staff) Patient is:: awake, non-verbal Per staff patient has:: no adverse event Internal Medicine Objective - Results Result Diagrams: 04/12/18 05:30 04/12/18 05:30 Recent Labs: Laboratory Last Values WBC 8.2 Th/cmm (4.8-10.8) 04/12/18 05:30 RBC 3.13 Mil/cmm (3.80-5.10) L 04/12/18 05:30 Hgb 10.3 gm/dL (12-16) L 04/12/18 05:30 Hct 31.2 % (41.0-60) L 04/12/18 05:30 MCV 99.7 fl (81-100) 04/12/18 05:30 MCH 33.0 pg (27.0-31.0) H 04/12/18 05:30 MCHC Differential 33.1 pg (28.0-36.0) 04/12/18 05:30 RDW 11.4 % (11.5-20.0) L 04/12/18 05:30 Plt Count 171 Th/cmm (150-400) 04/12/18 05:30 MPV 10.0 fl 04/12/18 05:30 Add Manual Diff YES 04/09/18 04:10 Neutrophils % 68.1 % (40.0-80.0) 04/12/18 05:30 Band Neutrophils % 1 % (0-10) 04/09/18 04:10 Lymphocytes % 16.5 % (20.0-50.0) L 04/12/18 05:30 Monocytes % 9.0 % (2.0-10.0) 04/12/18 05:30 Eosinophils % 6.0 % (0.0-5.0) H 04/12/18 05:30 Basophils % 0.4 % (0.0-2.0) 04/12/18 05:30 Neutrophils (Manual) 82 % (40-80) H 04/09/18 04:10 Lymphocytes 10 % (20-50) L 04/09/18 04:10 Monocytes 6 % (2-10) 04/09/18 04:10 Eosinophils 1 % (0-5) 04/09/18 04:10 ESR 41 mm/hr (0-30) H 03/22/18 04:50 PT 10.6 SECONDS (9.5-11.5) 04/08/18 05:30 INR 1.02 (0.5-1.4) 04/08/18 05:30 Specimen Source art 04/09/18 14:57 Sample Site Left Radial 04/09/18 14:57 pH 7.45 (7.35-7.45) 04/09/18 14:57 pCO2 33.7 mmHg (35.0-45.0) L 04/09/18 14:57 pO2 104.0 mmHg (80.0-100.0) H 04/09/18 14:57 HCO3 22.9 mEq/L (20.0-26.0) 04/09/18 14:57 Base Excess -0.3 mEq/L (-3.0-3.0) 04/09/18 14:57 O2 Saturation 98.0 % (92.0-100.0) 04/09/18 14:57 Herman Test pos 04/09/18 14:57 Vent Rate na 04/09/18 14:57 Inspired O2 30 04/09/18 14:57 Tidal Volume na 04/09/18 14:57 PEEP na 04/09/18 14:57 Pressure (ins/psv/peep) na 04/09/18 14:57 Critical Value RNinofranco 04/09/18 14:57 Sodium 139 mEq/L (136-145) 04/12/18 05:30 Potassium 3.9 mEq/L (3.5-5.1) 04/12/18 05:30 Chloride 104 mEq/L (98-107) 04/12/18 05:30 Carbon Dioxide 28.1 mEq/L (21.0-31.0) 04/12/18 05:30 Anion Gap 10.8 (7.0-16.0) 04/12/18 05:30 BUN 19 mg/dL (7-25) 04/12/18 05:30 Creatinine 0.3 mg/dL (0.6-1.2) L 04/12/18 05:30 Est GFR ( Amer) > 60.0 ml/min (>90) 04/12/18 05:30 Est GFR (Non-Af Amer) > 60.0 ml/min 04/12/18 05:30 BUN/Creatinine Ratio 63.3 04/12/18 05:30 Glucose 122 mg/dL (70-105) H 04/12/18 05:30 POC Glucose 120 MG/DL (70 - 105) H 04/11/18 10:34 Whole Bld Lactic Acid 1.20 mmol/L (0.60-1.99) 03/20/18 19:15 Calcium 7.8 mg/dL (8.6-10.3) L 04/12/18 05:30 Phosphorus 3.5 mg/dL (2.5-5.0) 04/11/18 04:45 Magnesium 1.6 mg/dL (1.9-2.7) L 04/12/18 05:30 Total Bilirubin 0.4 mg/dL (0.3-1.0) 04/05/18 04:35 Direct Bilirubin 0.47 mg/dL (0.0-0.2) H 03/29/18 04:35 AST 36 U/L (13-39) 04/05/18 04:35 ALT 38 U/L (7-52) 04/05/18 04:35 Alkaline Phosphatase 85 U/L (34-104) 04/05/18 04:35 C-Reactive Protein < 0.2 mg/dL (0.0-0.9) 03/22/18 04:50 Total Protein 6.8 gm/dL (6.0-8.3) 04/05/18 04:35 Albumin 3.2 gm/dL (3.7-5.3) L 04/05/18 04:35 Globulin 3.6 gm/dL 04/05/18 04:35 Albumin/Globulin Ratio 0.9 (1.0-1.8) L 04/05/18 04:35 Prealbumin 13 mg/dL (10-36) 04/05/18 04:35 Triglycerides 109 mg/dL (<150) 04/05/18 04:35 Cholesterol 143 mg/dL (<200) 04/05/18 04:35 LDL Cholesterol Direct 87 mg/dL (75-193) 03/21/18 04:45 HDL Cholesterol 65 mg/dL (23-92) 03/21/18 04:45 TSH 1.11 uIU/ml (0.34-5.60) 03/21/18 04:45 Vancomycin Trough 14.4 ug/mL (5-10) H 03/24/18 20:28 - Physical Exam Vitals and I&O: Vital Signs Temp 98.1 F 04/12/18 08:00 Pulse 113 04/12/18 08:00 Resp 17 04/12/18 08:00 BP 116/72 04/12/18 08:00 Pulse Ox 100 04/12/18 08:00 Intake & Output 04/11/18 04/12/18 04/12/18 18:59 06:59 18:59 Intake Total 605 905 Balance 605 905 Weight (lbs) 41.322 kg 41.322 kg Intake: Intake, IV Amount 105 105 Levetiracetam 500 mg In 105 105 Sodium Chloride 0.9% 100 ml @ 400 mls/hr IV Q12H [facility] Rx#:[id number] Oral 0 Tube Feeding 500 600 Other 200 Other: # Voids 3 3 # Bowel Movements 0 0 Weight Source Bedscale Bedscale Active Medications: Current Medications Acetaminophen (Tylenol 650mg/20.3ml Suspension) 650 mg GT Q4HR PRN PRN Reason: Pain Or Fever >100 Stop: 05/20/18 10:46 Acetylcysteine (Mucomyst 20%) 3 ml HHN Q6HRT [facility] Stop: 06/09/18 18:59 Last Admin: 04/12/18 06:21 Dose: 3 ml Albuterol/Ipratropium (Duoneb Neb) 3 ml HHN [id number] PRN PRN Reason: sob Stop: 05/20/18 10:46 Last Admin: 04/08/18 14:39 Dose: 3 ml Albuterol/Ipratropium (Duoneb Neb) 3 ml HHN Q6HRT [facility] Stop: 06/07/18 18:59 Last Admin: 04/12/18 06:21 Dose: 3 ml Bisacodyl (Dulcolax 10 Mg Supp) 10 mg RC Q96H PRN PRN Reason: Constipation Stop: 05/20/18 10:46 Last Admin: 03/22/18 19:42 Dose: 10 mg Calcium/Vitamin D (Oscal W/Vitamin D) 2 tab GT BID [facility] Stop: 05/31/18 08:59 Last Admin: 04/12/18 08:49 Dose: 2 tab Carbamazepine (Tegretol) 400 mg GT Q12HR@0900,2100 [facility] Stop: 05/20/18 10:59 Last Admin: 04/12/18 08:48 Dose: 400 mg Diltiazem HCl (Cardizem) 30 mg PO Q8HR [facility] Stop: 06/09/18 20:59 Last Admin: 04/12/18 04:53 Dose: 30 mg Diltiazem HCl (Cardizem) 10 mg IVP Q4H PRN PRN Reason: Tachycardia Stop: 06/09/18 14:59 Last Admin: 04/11/18 16:28 Dose: 10 mg Docusate Sodium (Colace) 200 mg GT BID [facility] Stop: 05/20/18 10:59 Last Admin: 04/12/18 08:49 Dose: 200 mg Hydralazine HCl (Apresoline 20 Mg/Ml) 20 mg IV Q6HR PRN PRN Reason: SBP>160 Stop: 05/23/18 13:11 Levetiracetam 500 mg/ Sodium (Chloride) 105 mls @ 400 mls/hr IV Q12H [facility] Stop: 05/21/18 22:59 Last Infusion: 04/11/18 23:40 Dose: Infused Lactobacillus Rhamnosus (Culturelle 15b) 1 each PO DAILY [facility] Stop: 05/25/18 08:59 Last Admin: 04/12/18 08:49 Dose: 1 each Lactulose (Cephulac) 10 gm GT DAILY PRN PRN Reason: Constipation Last Admin: 03/22/18 13:47 Dose: 10 gm Magnesium Hydroxide (Milk Of Magnesia) 30 ml GT Q72H PRN PRN Reason: Constipation Stop: 05/20/18 10:48 Metoprolol Tartrate (Lopressor) 5 mg IV Q6HR [facility] Stop: 06/07/18 17:59 Last Admin: 04/12/18 06:45 Dose: Not Given Miscellaneous (Probiotic Screen) 1 ea MC PRN PRN PRN Reason: PROTOCOL Stop: 05/24/18 17:10 Morphine Sulfate (Morphine) 1 mg IVP Q4HR PRN PRN Reason: Pain (Moderate) Stop: 06/07/18 17:30 Last Admin: 04/10/18 18:58 Dose: 1 mg Multivitamins/Minerals (Theragran M) 15 ml GT DAILY [facility] Stop: 06/10/18 08:59 Last Admin: 04/12/18 08:50 Dose: 15 ml Nystatin/Triamcinolone Acetonide (Mycolog Ii Cream) 1 appl TP BID [facility] Stop: 06/06/18 10:29 Last Admin: 04/12/18 08:50 Dose: 1 appl Petrolatum (Zinc Oxide) 1 appl TP HS [facility] Stop: 05/21/18 20:59 Last Admin: 04/11/18 20:20 Dose: Not Given Sodium Phosphate (Fleet Enema) 135 ml RC Q96H PRN PRN Reason: IF DULCOLAX INEFFECTIVE Stop: 05/20/18 10:46 General: thin, NAD HEENT: NC/AT, PERRLA, EOMI Neck: No JVD, no No thyromegaly Lungs: CTAB Cardiovascular: RRR Abdomen: soft, non-tender, +GT, other (GT SITE WITH IMPROVED ERYTHEMA), no +GT - redness, no +GT - discharge Extremities: clear Neurological: no change, spastic - Procedures Procedures: Procedures Procedure Code Date ASPIR CURETT UTERUS NEC 69.59 06/12/11 CHANGE FEEDING DEVICE IN UP INTEST TRACT, POLITICAL SCIENCE FACULTY MEMBER APPROACH [id number] 01/27/16 CHANGE GASTROSTOMY TUBE 23859 05/21/15 DILATION AND CURETTAGE 58890 06/12/11 EGD BIOPSY SINGLE/MULTIPLE 76175 07/15/16 EXCISION OF ABD SUBCU/FASCIA, OPEN APPROACH [id number] 03/20/18 EXCISION OF ABDOMINAL WALL, OPEN APPROACH [id number] 03/20/18 EXCISION OF STOMACH, ENDO, DIAGN [id number] 07/15/16 EXCISION OF STOMACH, OPEN APPROACH [id number] 03/20/18 INSERTION OF FEEDING DEVICE INTO STOMACH, ENDO [id number] 07/15/16 INSERTION OF FEEDING DEVICE INTO STOMACH, OPEN APPROACH [id number] 03/20/18 LAPARO PROC ABDM/PER/OMENT 17381 07/29/13 LAPAROSCOP APPENDECTOMY 47.01 07/29/13 LAPAROSCOP LYSIS-PERITONEAL ADHES 54.51 07/29/13 LAPAROSCOPY APPENDECTOMY 72172 07/29/13 RELEASE OMENTUM, OPEN APPROACH [id number] 03/20/18 REPLACE GASTROSTOMY TUBE 97.02 07/26/14 Internal Medicine Assmt/Plan - Assessment Assessment: 1. GTUBE MALFUNCTION WITH LEAKAGE-S/P REPLACEMENT 2. GT SITE CELLULITIS/DRAINAGE (GC FISTULA)-S/P MINI EXLAP WITH GC TAKE DOWN () 3. COMPLEX WOUND INFX-PSEUDOMONAS AERUGINOSA 3. HISTORY OF DYSPHAGIA-PEG PLACEMENT 4. HX OF CONSTIPATION 5. HYPONATREMIA--RESOLVED 6. HX OF SEIZURE DISORDER-STABLE 7. HX OF INTELLECTUAL DISABILITY 8. S/P PICC LINE PLACEMENT 9. ELECTROLYTE IMBALANCE-STABLE/MONITOR. - Plan Plan: CONT WITH CURRENT TELE CARE AND MGT CONT WITH CURRENT PEG FEEDS/MONITOR FOR RESIDUALS CONT WITH LOCAL WOUND CARE CONT WITH OTHER MEDS SCHEDULED MONITOR LYTES. GI/ID FU AWAITING PLACEMENT Nutritional Asmnt/Malnutr-PDOC - Dietary Evaluation Malnutrition Findings (Please click <Entered> for more info): Nutritional Asmnt/Malnutrition Start: 03/21/18 13: 29 Text: Status: Complete Freq: Protocol: Document 03/21/18 13:29 LCHEBERG (Rec: 03/21/18 13:45 LCHEBERG CHARO-FN) Nutritional Asmnt/Malnutrition Patient General Information Nutritional Screening High Risk Consult Diagnosis displacement of Gtube, Gtube site cellulitis Pertinent Medical Hx/Surgical Hx HTN, PUD?GERD, seizures, hepatitis B and C, developmentally disabled, quadriplegic Subjective Information Consult reiceved for shayna score 11. Pt seen in bed, non verbal noted. Per nurse pt is tolerating current tube feeding. CALEB Rdz asked about TF rate since pt was receiving Jevity 1.5 [facility] and our hospital only carries Jevity 1.2. Current Diet Order/ Nutrition Support Jevity 1.2 at 40ml/hr x 20hr, providing 960kcal and 44g protein Pertinent Medications oscal w/vit D, colace, nacl 0. 9%, vancomycin Pertinent Labs 2/4 Cl 108, Cr 0.4 2/3 Cr 0.4, glucose 109, alb 3 .6 Nutritional Hx/Data Height 1.6 m Height (Calculated Centimeters) 160.0 Current Weight (lbs) 45.359 kg Weight (Calculated Kilograms) 45.4 Weight (Calculated Grams) 53173.2 Roy Body Weight 115 Body Mass Index (BMI) 17.6 Weight Status Underweight GI Symptoms GI Symptoms None Last BM not indicated Usual diet at home Jevity 1.5 at 40ml/hr x 20hr at [facility] Skin Integrity/Comment: cellulitis reddened to Gtube site shayna 11 Estimated Nutritional Goals Calories/Kcals/Kg 25-30 IBW 52kg Kcals Calculated 6313-2118 Protein g/k-1.2 Protein Calculated 52-62 Fluid: ml 1300-1560ml (1ml/kcal) Nutritional Problem 1. Problem Problem inadequate intake from enteral feeding Etiology current TF regimen not meeting nutritional needs Signs/Symptoms: current TF providing 960kcal and 44g protein Malnutrition Related to Morbid Obesity Malnutrition related to morbid obesity No Intervention/Recommendation Comments 1. Recommend to increase TF rate to Jevity 1.2 at 55ml/hr x 20hr. It provides 1320kcal, 61g protein, 888ml free water, meeting 100% of nutritional needs. CALEB Rdz notified. 2. Monitor TF rate, tolerance, wt, skin integrity and labs 3. F/U as high risk in 2-3 days, 2/5-2/6 Expected Outcomes/Goals Expected Outcomes/Goals 1. Pt to meet at least 90% of nutritional needs via nutrition support with tolerance 2. Wt stability, skin to remain intact, labs to approach WNL.
[2018-04-12] MEDS ORDERED: Morphine Sulfate 2 mg/mL 1mL Syr IVP PRN (11:41)
--- NOTE | 2018-04-12 12:00 | General Progress Note ---
Subjective - Review of Systems Service Date: 04/12/18 Subjective: Patient is extubated More awake Tolerating G-tube feeding Objective - Results Result Diagrams: 04/12/18 05:30 04/12/18 05:30 Recent Labs: Laboratory Last Values WBC 8.2 Th/cmm (4.8-10.8) 04/12/18 05:30 RBC 3.13 Mil/cmm (3.80-5.10) L 04/12/18 05:30 Hgb 10.3 gm/dL (12-16) L 04/12/18 05:30 Hct 31.2 % (41.0-60) L 04/12/18 05:30 MCV 99.7 fl (81-100) 04/12/18 05:30 MCH 33.0 pg (27.0-31.0) H 04/12/18 05:30 MCHC Differential 33.1 pg (28.0-36.0) 04/12/18 05:30 RDW 11.4 % (11.5-20.0) L 04/12/18 05:30 Plt Count 171 Th/cmm (150-400) 04/12/18 05:30 MPV 10.0 fl 04/12/18 05:30 Add Manual Diff YES 04/09/18 04:10 Neutrophils % 68.1 % (40.0-80.0) 04/12/18 05:30 Band Neutrophils % 1 % (0-10) 04/09/18 04:10 Lymphocytes % 16.5 % (20.0-50.0) L 04/12/18 05:30 Monocytes % 9.0 % (2.0-10.0) 04/12/18 05:30 Eosinophils % 6.0 % (0.0-5.0) H 04/12/18 05:30 Basophils % 0.4 % (0.0-2.0) 04/12/18 05:30 Neutrophils (Manual) 82 % (40-80) H 04/09/18 04:10 Lymphocytes 10 % (20-50) L 04/09/18 04:10 Monocytes 6 % (2-10) 04/09/18 04:10 Eosinophils 1 % (0-5) 04/09/18 04:10 ESR 41 mm/hr (0-30) H 03/22/18 04:50 PT 10.6 SECONDS (9.5-11.5) 04/08/18 05:30 INR 1.02 (0.5-1.4) 04/08/18 05:30 Specimen Source art 04/09/18 14:57 Sample Site Left Radial 04/09/18 14:57 pH 7.45 (7.35-7.45) 04/09/18 14:57 pCO2 33.7 mmHg (35.0-45.0) L 04/09/18 14:57 pO2 104.0 mmHg (80.0-100.0) H 04/09/18 14:57 HCO3 22.9 mEq/L (20.0-26.0) 04/09/18 14:57 Base Excess -0.3 mEq/L (-3.0-3.0) 04/09/18 14:57 O2 Saturation 98.0 % (92.0-100.0) 04/09/18 14:57 Herman Test pos 04/09/18 14:57 Vent Rate na 04/09/18 14:57 Inspired O2 30 04/09/18 14:57 Tidal Volume na 04/09/18 14:57 PEEP na 04/09/18 14:57 Pressure (ins/psv/peep) na 04/09/18 14:57 Critical Value RNinofranco 04/09/18 14:57 Sodium 139 mEq/L (136-145) 04/12/18 05:30 Potassium 3.9 mEq/L (3.5-5.1) 04/12/18 05:30 Chloride 104 mEq/L (98-107) 04/12/18 05:30 Carbon Dioxide 28.1 mEq/L (21.0-31.0) 04/12/18 05:30 Anion Gap 10.8 (7.0-16.0) 04/12/18 05:30 BUN 19 mg/dL (7-25) 04/12/18 05:30 Creatinine 0.3 mg/dL (0.6-1.2) L 04/12/18 05:30 Est GFR ( Amer) > 60.0 ml/min (>90) 04/12/18 05:30 Est GFR (Non-Af Amer) > 60.0 ml/min 04/12/18 05:30 BUN/Creatinine Ratio 63.3 04/12/18 05:30 Glucose 122 mg/dL (70-105) H 04/12/18 05:30 POC Glucose 120 MG/DL (70 - 105) H 04/11/18 10:34 Whole Bld Lactic Acid 1.20 mmol/L (0.60-1.99) 03/20/18 19:15 Calcium 7.8 mg/dL (8.6-10.3) L 04/12/18 05:30 Phosphorus 3.5 mg/dL (2.5-5.0) 04/11/18 04:45 Magnesium 1.6 mg/dL (1.9-2.7) L 04/12/18 05:30 Total Bilirubin 0.4 mg/dL (0.3-1.0) 04/05/18 04:35 Direct Bilirubin 0.47 mg/dL (0.0-0.2) H 03/29/18 04:35 AST 36 U/L (13-39) 04/05/18 04:35 ALT 38 U/L (7-52) 04/05/18 04:35 Alkaline Phosphatase 85 U/L (34-104) 04/05/18 04:35 C-Reactive Protein < 0.2 mg/dL (0.0-0.9) 03/22/18 04:50 Total Protein 6.8 gm/dL (6.0-8.3) 04/05/18 04:35 Albumin 3.2 gm/dL (3.7-5.3) L 04/05/18 04:35 Globulin 3.6 gm/dL 04/05/18 04:35 Albumin/Globulin Ratio 0.9 (1.0-1.8) L 04/05/18 04:35 Prealbumin 13 mg/dL (10-36) 04/05/18 04:35 Triglycerides 109 mg/dL (<150) 04/05/18 04:35 Cholesterol 143 mg/dL (<200) 04/05/18 04:35 LDL Cholesterol Direct 87 mg/dL (75-193) 03/21/18 04:45 HDL Cholesterol 65 mg/dL (23-92) 03/21/18 04:45 TSH 1.11 uIU/ml (0.34-5.60) 03/21/18 04:45 Vancomycin Trough 14.4 ug/mL (5-10) H 03/24/18 20:28 - Physical Exam Vitals and I&O: Vital Signs Temp 98.1 F 04/12/18 11:37 Pulse 128 04/12/18 11:37 Resp 21 04/12/18 11:37 BP 101/49 04/12/18 11:37 Pulse Ox 98 04/12/18 11:37 Intake & Output 04/11/18 04/12/18 04/12/18 18:59 06:59 18:59 Intake Total 605 905 Balance 605 905 Weight (lbs) 41.322 kg 41.322 kg Intake: Intake, IV Amount 105 105 Levetiracetam 500 mg In 105 105 Sodium Chloride 0.9% 100 ml @ 400 mls/hr IV Q12H [facility] Rx#:[id number] Oral 0 Tube Feeding 500 600 Other 200 Other: # Voids 3 3 # Bowel Movements 0 0 Weight Source Bedscale Bedscale Active Medications: Current Medications Acetaminophen (Tylenol 650mg/20.3ml Suspension) 650 mg GT Q4HR PRN PRN Reason: Pain Or Fever >100 Stop: 05/20/18 10:46 Acetylcysteine (Mucomyst 20%) 3 ml HHN Q6HRT [facility] Stop: 06/09/18 18:59 Last Admin: 04/12/18 06:21 Dose: 3 ml Albuterol/Ipratropium (Duoneb Neb) 3 ml HHN [id number] PRN PRN Reason: sob Stop: 05/20/18 10:46 Last Admin: 04/08/18 14:39 Dose: 3 ml Albuterol/Ipratropium (Duoneb Neb) 3 ml HHN Q6HRT [facility] Stop: 06/07/18 18:59 Last Admin: 04/12/18 06:21 Dose: 3 ml Bisacodyl (Dulcolax 10 Mg Supp) 10 mg RC Q96H PRN PRN Reason: Constipation Stop: 05/20/18 10:46 Last Admin: 03/22/18 19:42 Dose: 10 mg Calcium/Vitamin D (Oscal W/Vitamin D) 2 tab GT BID [facility] Stop: 05/31/18 08:59 Last Admin: 04/12/18 08:49 Dose: 2 tab Carbamazepine (Tegretol) 400 mg GT Q12HR@0900,2100 [facility] Stop: 05/20/18 10:59 Last Admin: 04/12/18 08:48 Dose: 400 mg Diltiazem HCl (Cardizem) 30 mg PO Q8HR [facility] Stop: 06/09/18 20:59 Last Admin: 04/12/18 04:53 Dose: 30 mg Diltiazem HCl (Cardizem) 10 mg IVP Q4H PRN PRN Reason: Tachycardia Stop: 06/09/18 14:59 Last Admin: 04/11/18 16:28 Dose: 10 mg Docusate Sodium (Colace) 200 mg GT BID [facility] Stop: 05/20/18 10:59 Last Admin: 04/12/18 08:49 Dose: 200 mg Hydralazine HCl (Apresoline 20 Mg/Ml) 20 mg IV Q6HR PRN PRN Reason: SBP>160 Stop: 05/23/18 13:11 Levetiracetam 500 mg/ Sodium (Chloride) 105 mls @ 400 mls/hr IV Q12H [facility] Stop: 05/21/18 22:59 Last Infusion: 04/11/18 23:40 Dose: Infused Magnesium Sulfate (Magnesium Sulfate Premix) 2 gm in 50 mls @ 25 mls/hr IV X1 ONE Stop: 04/12/18 13:38 Ibuprofen (Motrin) 400 mg PO TID [facility] Stop: 06/11/18 13:59 Lactobacillus Rhamnosus (Culturelle 15b) 1 each PO DAILY [facility] Stop: 05/25/18 08:59 Last Admin: 04/12/18 08:49 Dose: 1 each Lactulose (Cephulac) 10 gm GT DAILY PRN PRN Reason: Constipation Last Admin: 03/22/18 13:47 Dose: 10 gm Magnesium Hydroxide (Milk Of Magnesia) 30 ml GT Q72H PRN PRN Reason: Constipation Stop: 05/20/18 10:48 Metoprolol Tartrate (Lopressor) 5 mg IV Q6HR [facility] Stop: 06/07/18 17:59 Last Admin: 04/12/18 06:45 Dose: Not Given Miscellaneous (Probiotic Screen) 1 ea MC PRN PRN PRN Reason: PROTOCOL Stop: 05/24/18 17:10 Morphine Sulfate (Morphine) 1 mg IVP Q4HR PRN PRN Reason: Abdominal Pain Stop: 06/11/18 11:40 Multivitamins/Minerals (Theragran M) 15 ml GT DAILY [facility] Stop: 06/10/18 08:59 Last Admin: 04/12/18 08:50 Dose: 15 ml Nystatin/Triamcinolone Acetonide (Mycolog Ii Cream) 1 appl TP BID [facility] Stop: 06/06/18 10:29 Last Admin: 04/12/18 08:50 Dose: 1 appl Petrolatum (Zinc Oxide) 1 appl TP HS [facility] Stop: 05/21/18 20:59 Last Admin: 04/11/18 20:20 Dose: Not Given Sodium Phosphate (Fleet Enema) 135 ml RC Q96H PRN PRN Reason: IF DULCOLAX INEFFECTIVE Stop: 05/20/18 10:46 General: No acute distress HEENT: Atraumatic Neck: Supple Cardiovascular: Regular rate Lungs: Clear to auscultation Abdomen: Bowel sounds, Soft, Other (G-tube in place), no Tender, no Distended, no Rebound, no Mass, no Guarding Extremities: no Edema Neurological: Sensation intact, Cranial nerves 3-12 NL, Reflexes 2+ Skin: Rash Psych/Mental Status: Mood NL - Procedures Procedures: Procedures Procedure Code Date ASPIR CURETT UTERUS NEC 69.59 06/12/11 CHANGE FEEDING DEVICE IN UP INTEST TRACT, BIODIESEL DIVISION MANAGER APPROACH [id number] 01/27/16 CHANGE GASTROSTOMY TUBE 58424 05/21/15 DILATION AND CURETTAGE 65645 06/12/11 EGD BIOPSY SINGLE/MULTIPLE 66891 07/15/16 EXCISION OF ABD SUBCU/FASCIA, OPEN APPROACH [id number] 03/20/18 EXCISION OF ABDOMINAL WALL, OPEN APPROACH [id number] 03/20/18 EXCISION OF STOMACH, ENDO, DIAGN [id number] 07/15/16 EXCISION OF STOMACH, OPEN APPROACH [id number] 03/20/18 INSERTION OF FEEDING DEVICE INTO STOMACH, ENDO [id number] 07/15/16 INSERTION OF FEEDING DEVICE INTO STOMACH, OPEN APPROACH [id number] 03/20/18 LAPARO PROC ABDM/PER/OMENT 54043 07/29/13 LAPAROSCOP APPENDECTOMY 47.01 07/29/13 LAPAROSCOP LYSIS-PERITONEAL ADHES 54.51 07/29/13 LAPAROSCOPY APPENDECTOMY 61521 07/29/13 RELEASE OMENTUM, OPEN APPROACH [id number] 03/20/18 REPLACE GASTROSTOMY TUBE 97.02 07/26/14 Assessment/Plan - Assessment Assessment: G-tube cellulitis Gastrocutaneous fistula Hypernatremia Contractures both upper and lower extremity Protein calorie malnutrition Dementia Cholelithiasis Osteoporosis Patient had surgery laparotomy lysis of adhesion gastrocutaneous fistula and G- tube placement Hypertension Sinus tachycardia - Plan Plan: Patient of ventilator Lopressor 5 mg IV every 6 hours to control blood pressure and her heart rate Cardizem 30 mg every 8 hours Cardiac exam 10 mg IV every 4 hours when necessary to control the heart rate Patient clinically stable transferred to [facility] Nutritional Asmnt/Malnutr-PDOC - Dietary Evaluation Malnutrition Findings (Please click <Entered> for more info): Nutritional Asmnt/Malnutrition Start: 03/21/18 13: 29 Text: Status: Complete Freq: Protocol: Document 03/21/18 13:29 LCHENG (Rec: 03/21/18 13:45 LCHENG [email or web address]) Nutritional Asmnt/Malnutrition Patient General Information Nutritional Screening High Risk Consult Diagnosis displacement of Gtube, Gtube site cellulitis Pertinent Medical Hx/Surgical Hx HTN, PUD?GERD, seizures, hepatitis B and C, developmentally disabled, quadriplegic Subjective Information Consult reiceved for shayna score 11. Pt seen in bed, non verbal noted. Per nurse pt is tolerating current tube feeding. CALEB Rdz asked about TF rate since pt was receiving Jevity 1.5 at [facility] and our hospital only carries Jevity 1.2. Current Diet Order/ Nutrition Support Jevity 1.2 at 40ml/hr x 20hr, providing 960kcal and 44g protein Pertinent Medications oscal w/vit D, colace, nacl 0. 9%, vancomycin Pertinent Labs 2/4 Cl 108, Cr 0.4 2/3 Cr 0.4, glucose 109, alb 3 .6 Nutritional Hx/Data Height 1.6 m Height (Calculated Centimeters) 160.0 Current Weight (lbs) 45.359 kg Weight (Calculated Kilograms) 45.4 Weight (Calculated Grams) 85419.2 Dow Body Weight 115 Body Mass Index (BMI) 17.6 Weight Status Underweight GI Symptoms GI Symptoms None Last BM not indicated Usual diet at home Jevity 1.5 at 40ml/hr x 20hr at [facility] Skin Integrity/Comment: cellulitis reddened to Gtube site shayna 11 Estimated Nutritional Goals Calories/Kcals/Kg 25-30 IBW 52kg Kcals Calculated 0507-1666 Protein g/k-1.2 Protein Calculated 52-62 Fluid: ml 1300-1560ml (1ml/kcal) Nutritional Problem 1. Problem Problem inadequate intake from enteral feeding Etiology current TF regimen not meeting nutritional needs Signs/Symptoms: current TF providing 960kcal and 44g protein Malnutrition Related to Morbid Obesity Malnutrition related to morbid obesity No Intervention/Recommendation Comments 1. Recommend to increase TF rate to Jevity 1.2 at 55ml/hr x 20hr. It provides 1320kcal, 61g protein, 888ml free water, meeting 100% of nutritional needs. RN Kajal notified. 2. Monitor TF rate, tolerance, wt, skin integrity and labs 3. F/U as high risk in 2-3 days, 2/5-2/6 Expected Outcomes/Goals Expected Outcomes/Goals 1. Pt to meet at least 90% of nutritional needs via nutrition support with tolerance 2. Wt stability, skin to remain intact, labs to approach WNL.
[2018-04-12] MEDS ORDERED: Mag Sulfate 2gm/50mL Premix 2 GM/50 ML BAG IV ONE (12:10)
--- NOTE | 2018-04-12 13:08 | GI Progress Note ---
Subjective - Review of Systems Service Date: 04/12/18 Events since last encounter: No new events Objective - Results Result Diagrams: 04/12/18 05:30 04/12/18 05:30 Recent Labs: Laboratory Last Values WBC 8.2 Th/cmm (4.8-10.8) 04/12/18 05:30 RBC 3.13 Mil/cmm (3.80-5.10) L 04/12/18 05:30 Hgb 10.3 gm/dL (12-16) L 04/12/18 05:30 Hct 31.2 % (41.0-60) L 04/12/18 05:30 MCV 99.7 fl (81-100) 04/12/18 05:30 MCH 33.0 pg (27.0-31.0) H 04/12/18 05:30 MCHC Differential 33.1 pg (28.0-36.0) 04/12/18 05:30 RDW 11.4 % (11.5-20.0) L 04/12/18 05:30 Plt Count 171 Th/cmm (150-400) 04/12/18 05:30 MPV 10.0 fl 04/12/18 05:30 Add Manual Diff YES 04/09/18 04:10 Neutrophils % 68.1 % (40.0-80.0) 04/12/18 05:30 Band Neutrophils % 1 % (0-10) 04/09/18 04:10 Lymphocytes % 16.5 % (20.0-50.0) L 04/12/18 05:30 Monocytes % 9.0 % (2.0-10.0) 04/12/18 05:30 Eosinophils % 6.0 % (0.0-5.0) H 04/12/18 05:30 Basophils % 0.4 % (0.0-2.0) 04/12/18 05:30 Neutrophils (Manual) 82 % (40-80) H 04/09/18 04:10 Lymphocytes 10 % (20-50) L 04/09/18 04:10 Monocytes 6 % (2-10) 04/09/18 04:10 Eosinophils 1 % (0-5) 04/09/18 04:10 ESR 41 mm/hr (0-30) H 03/22/18 04:50 PT 10.6 SECONDS (9.5-11.5) 04/08/18 05:30 INR 1.02 (0.5-1.4) 04/08/18 05:30 Specimen Source art 04/09/18 14:57 Sample Site Left Radial 04/09/18 14:57 pH 7.45 (7.35-7.45) 04/09/18 14:57 pCO2 33.7 mmHg (35.0-45.0) L 04/09/18 14:57 pO2 104.0 mmHg (80.0-100.0) H 04/09/18 14:57 HCO3 22.9 mEq/L (20.0-26.0) 04/09/18 14:57 Base Excess -0.3 mEq/L (-3.0-3.0) 04/09/18 14:57 O2 Saturation 98.0 % (92.0-100.0) 04/09/18 14:57 Herman Test pos 04/09/18 14:57 Vent Rate na 04/09/18 14:57 Inspired O2 30 04/09/18 14:57 Tidal Volume na 04/09/18 14:57 PEEP na 04/09/18 14:57 Pressure (ins/psv/peep) na 04/09/18 14:57 Critical Value RNinofranco 04/09/18 14:57 Sodium 139 mEq/L (136-145) 04/12/18 05:30 Potassium 3.9 mEq/L (3.5-5.1) 04/12/18 05:30 Chloride 104 mEq/L (98-107) 04/12/18 05:30 Carbon Dioxide 28.1 mEq/L (21.0-31.0) 04/12/18 05:30 Anion Gap 10.8 (7.0-16.0) 04/12/18 05:30 BUN 19 mg/dL (7-25) 04/12/18 05:30 Creatinine 0.3 mg/dL (0.6-1.2) L 04/12/18 05:30 Est GFR ( Amer) > 60.0 ml/min (>90) 04/12/18 05:30 Est GFR (Non-Af Amer) > 60.0 ml/min 04/12/18 05:30 BUN/Creatinine Ratio 63.3 04/12/18 05:30 Glucose 122 mg/dL (70-105) H 04/12/18 05:30 POC Glucose 120 MG/DL (70 - 105) H 04/11/18 10:34 Whole Bld Lactic Acid 1.20 mmol/L (0.60-1.99) 03/20/18 19:15 Calcium 7.8 mg/dL (8.6-10.3) L 04/12/18 05:30 Phosphorus 3.5 mg/dL (2.5-5.0) 04/11/18 04:45 Magnesium 1.6 mg/dL (1.9-2.7) L 04/12/18 05:30 Total Bilirubin 0.4 mg/dL (0.3-1.0) 04/05/18 04:35 Direct Bilirubin 0.47 mg/dL (0.0-0.2) H 03/29/18 04:35 AST 36 U/L (13-39) 04/05/18 04:35 ALT 38 U/L (7-52) 04/05/18 04:35 Alkaline Phosphatase 85 U/L (34-104) 04/05/18 04:35 C-Reactive Protein < 0.2 mg/dL (0.0-0.9) 03/22/18 04:50 Total Protein 6.8 gm/dL (6.0-8.3) 04/05/18 04:35 Albumin 3.2 gm/dL (3.7-5.3) L 04/05/18 04:35 Globulin 3.6 gm/dL 04/05/18 04:35 Albumin/Globulin Ratio 0.9 (1.0-1.8) L 04/05/18 04:35 Prealbumin 13 mg/dL (10-36) 04/05/18 04:35 Triglycerides 109 mg/dL (<150) 04/05/18 04:35 Cholesterol 143 mg/dL (<200) 04/05/18 04:35 LDL Cholesterol Direct 87 mg/dL (75-193) 03/21/18 04:45 HDL Cholesterol 65 mg/dL (23-92) 03/21/18 04:45 TSH 1.11 uIU/ml (0.34-5.60) 03/21/18 04:45 Vancomycin Trough 14.4 ug/mL (5-10) H 03/24/18 20:28 - Physical Exam Vitals and I&O: Vital Signs Temp 98.1 F 04/12/18 11:37 Pulse 122 04/12/18 12:50 Resp 20 04/12/18 12:50 BP 101/49 04/12/18 11:37 Pulse Ox 99 04/12/18 12:50 Intake & Output 04/11/18 04/12/18 04/12/18 18:59 06:59 18:59 Intake Total 605 905 Balance 605 905 Weight (lbs) 41.322 kg 41.322 kg Intake: Intake, IV Amount 105 105 Levetiracetam 500 mg In 105 105 Sodium Chloride 0.9% 100 ml @ 400 mls/hr IV Q12H [facility] Rx#:[id number] Oral 0 Tube Feeding 500 600 Other 200 Other: # Voids 3 3 # Bowel Movements 0 0 Weight Source Bedscale Bedscale Active Medications: Current Medications Acetaminophen (Tylenol 650mg/20.3ml Suspension) 650 mg GT Q4HR PRN PRN Reason: Pain Or Fever >100 Stop: 05/20/18 10:46 Acetylcysteine (Mucomyst 20%) 3 ml HHN Q6HRT [facility] Stop: 06/09/18 18:59 Last Admin: 04/12/18 12:38 Dose: 3 ml Albuterol/Ipratropium (Duoneb Neb) 3 ml HHN [id number] PRN PRN Reason: sob Stop: 05/20/18 10:46 Last Admin: 04/08/18 14:39 Dose: 3 ml Albuterol/Ipratropium (Duoneb Neb) 3 ml HHN Q6HRT [facility] Stop: 06/07/18 18:59 Last Admin: 04/12/18 12:38 Dose: 3 ml Bisacodyl (Dulcolax 10 Mg Supp) 10 mg RC Q96H PRN PRN Reason: Constipation Stop: 05/20/18 10:46 Last Admin: 03/22/18 19:42 Dose: 10 mg Calcium/Vitamin D (Oscal W/Vitamin D) 2 tab GT BID [facility] Stop: 05/31/18 08:59 Last Admin: 04/12/18 08:49 Dose: 2 tab Carbamazepine (Tegretol) 400 mg GT Q12HR@0900,2100 [facility] Stop: 05/20/18 10:59 Last Admin: 04/12/18 08:48 Dose: 400 mg Diltiazem HCl (Cardizem) 30 mg PO Q8HR [facility] Stop: 06/09/18 20:59 Last Admin: 04/12/18 04:53 Dose: 30 mg Diltiazem HCl (Cardizem) 10 mg IVP Q4H PRN PRN Reason: Tachycardia Stop: 06/09/18 14:59 Last Admin: 04/11/18 16:28 Dose: 10 mg Docusate Sodium (Colace) 200 mg GT BID [facility] Stop: 05/20/18 10:59 Last Admin: 04/12/18 08:49 Dose: 200 mg Hydralazine HCl (Apresoline 20 Mg/Ml) 20 mg IV Q6HR PRN PRN Reason: SBP>160 Stop: 05/23/18 13:11 Levetiracetam 500 mg/ Sodium (Chloride) 105 mls @ 400 mls/hr IV Q12H [facility] Stop: 05/21/18 22:59 Last Infusion: 04/11/18 23:40 Dose: Infused Magnesium Sulfate (Magnesium Sulfate Premix) 2 gm in 50 mls @ 25 mls/hr IV X1 ONE Stop: 04/12/18 14:09 Ibuprofen (Motrin) 400 mg PO TID [facility] Stop: 06/11/18 13:59 Lactobacillus Rhamnosus (Culturelle 15b) 1 each PO DAILY [facility] Stop: 05/25/18 08:59 Last Admin: 04/12/18 08:49 Dose: 1 each Lactulose (Cephulac) 10 gm GT DAILY PRN PRN Reason: Constipation Last Admin: 03/22/18 13:47 Dose: 10 gm Magnesium Hydroxide (Milk Of Magnesia) 30 ml GT Q72H PRN PRN Reason: Constipation Stop: 05/20/18 10:48 Metoprolol Tartrate (Lopressor) 5 mg IV Q6HR [facility] Stop: 06/07/18 17:59 Last Admin: 04/12/18 06:45 Dose: Not Given Miscellaneous (Probiotic Screen) 1 ea MC PRN PRN PRN Reason: PROTOCOL Stop: 05/24/18 17:10 Morphine Sulfate (Morphine) 1 mg IVP Q4HR PRN PRN Reason: Abdominal Pain Stop: 06/11/18 11:40 Multivitamins/Minerals (Theragran M) 15 ml GT DAILY [facility] Stop: 06/10/18 08:59 Last Admin: 04/12/18 08:50 Dose: 15 ml Nystatin/Triamcinolone Acetonide (Mycolog Ii Cream) 1 appl TP BID [facility] Stop: 06/06/18 10:29 Last Admin: 04/12/18 08:50 Dose: 1 appl Petrolatum (Zinc Oxide) 1 appl TP HS [facility] Stop: 05/21/18 20:59 Last Admin: 04/11/18 20:20 Dose: Not Given Sodium Phosphate (Fleet Enema) 135 ml RC Q96H PRN PRN Reason: IF DULCOLAX INEFFECTIVE Stop: 05/20/18 10:46 General: No acute distress HEENT: Atraumatic Neck: Supple Cardiovascular: Regular rate Lungs: Clear to auscultation Abdomen: Bowel sounds, Soft, Other (G-tube in place), no Tender, no Distended, no Rebound, no Mass, no Guarding Extremities: no Edema Neurological: Sensation intact, Cranial nerves 3-12 NL, Reflexes 2+ Skin: Rash Psych/Mental Status: Mood NL - Procedures Procedures: Procedures Procedure Code Date ASPIR CURETT UTERUS NEC 69.59 06/12/11 CHANGE FEEDING DEVICE IN UP INTEST TRACT, TANDEM MILL STICKER APPROACH [id number] 01/27/16 CHANGE GASTROSTOMY TUBE 91825 05/21/15 DILATION AND CURETTAGE 72831 06/12/11 EGD BIOPSY SINGLE/MULTIPLE 31731 07/15/16 EXCISION OF ABD SUBCU/FASCIA, OPEN APPROACH [id number] 03/20/18 EXCISION OF ABDOMINAL WALL, OPEN APPROACH [id number] 03/20/18 EXCISION OF STOMACH, ENDO, DIAGN [id number] 07/15/16 EXCISION OF STOMACH, OPEN APPROACH [id number] 03/20/18 INSERTION OF FEEDING DEVICE INTO STOMACH, ENDO [id number] 07/15/16 INSERTION OF FEEDING DEVICE INTO STOMACH, OPEN APPROACH [id number] 03/20/18 LAPARO PROC ABDM/PER/OMENT 44467 07/29/13 LAPAROSCOP APPENDECTOMY 47.01 07/29/13 LAPAROSCOP LYSIS-PERITONEAL ADHES 54.51 07/29/13 LAPAROSCOPY APPENDECTOMY 41342 07/29/13 RELEASE OMENTUM, OPEN APPROACH [id number] 03/20/18 REPLACE GASTROSTOMY TUBE 97.02 07/26/14 Assessment/Plan - Assessment Assessment: Assessment: # G tube site cellulitis # Dysphagia # Developmental delay As of 03/25, the site looked worse thus the G tube was pulled. Will need to wait for the area to heal prior to inserting a new one On 03/30, there is still erythema and some leakage from the area. Unclear if proper wound care is being applied to this area. On 04/01, the site looks more inflamed. Does not appear to be leakage from NG feeding, but infection on the skin is not improving. on 04/02 - NG tube was pulled bc of tip extruding out of gc fistula site Plan: -appreciate surgical mangement -Start tube feeds per surgical recommendation -G tube support and care
[2018-04-12] MEDS: Levetiracetam 500 mg/5mL 5mL UDSyr *for ORAL USE ONLY GT SCH (16:55)
--- NOTE | 2018-04-12 22:03 | Progress Notes ---
DATE: 04/12/2018 SUBJECTIVE: The patient still congested on and off and very weak. PHYSICAL EXAMINATION: GENERAL: Awake, no distress. VITAL SIGNS: Temperature 97.6, pulse 112, respirations 18, blood pressure 104/45 and saturation 98%. CHEST: Rhonchi bilaterally. HEART: Regular rate and rhythm. ABDOMEN: Soft. EXTREMITIES: No edema. LABORATORY DATA: WBC is 8.2, hemoglobin 10.3 and platelets 171. Sodium 139, potassium 3.9, BUN 19 and creatinine 0.3. DIAGNOSTIC DATA: Chest x-ray, bibasilar infiltrate. ASSESSMENT: 1. Respiratory failure. 2. Pneumonia. 3. Dysphagia. 4. Weakness. 5. Poor airway clearance. PLAN: 1. Add low dose steroids. 2. Nebulizer. 3. Mucomyst supportive care. JOB# [id number]
[2018-04-12] MEDS: Zinc Oxide Ointment 60 gm TP SCH (22:11)
[2018-04-13] MEDS: Metoprolol tartrate 1 mg/ml 5mL Amp IV SCH ×4 (00:05→17:12)
[2018-04-13] MEDS: Albuterol/Ipratropium Neb 3 ML AERS HHN SCH ×4 (01:05→19:28)
[2018-04-13] MEDS: Diltiazem 30 mg Tab PO SCH ×3 (05:38→20:53)
[2018-04-13 06:15] LABS: % BASOPHILS 0.2 % (0.0-2.0); % EOSINOPHILS 0.5 % (0.0-5.0); % LYMPHOCYTES 10.1 % (20.0-50.0); % MONOCYTES 3.6 % (2.0-10.0); % NEUTROPHILS 85.6 % (40.0-80.0); HEMATOCRIT 32.1 % (41.0-60); HEMOGLOBIN 10.7 gm/dL (12-16); LYMPHOCYTE ABSOLUTE 0.6 Th/cmm (1.5-3.0); MEAN CELL VOLUME 97.5 fl (81-100); MEAN CORPUSCULAR HEMOGLOBIN 32.6 pg (27.0-31.0); MEAN CORPUSCULAR HGB CONC 33.4 pg (28.0-36.0); MEAN PLATELET VOLUME 9.4 fl; MONOCYTE ABSOLUTE 0.2 Th/cmm (0.3-1.0); NEUTROPHILE ABSOLUTE 5.5 Th/cmm (1.8-8.0); PLATELET COUNT 236 Th/cmm (150-400); RED CELL DISTRIBUTION WIDTH 11.4 % (11.5-20.0); WHITE BLOOD COUNT 6.3 Th/cmm (4.8-10.8)
[2018-04-13 06:38] LABS: ANION GAP 12.8 (7.0-16.0); BUN - UREA NITROGEN 17 mg/dL (7-25); CALCIUM SERUM 8.1 mg/dL (8.6-10.3); CARBON DIOXIDE 25.5 mEq/L (21.0-31.0); CHLORIDE 104 mEq/L (98-107); CREATININE - SERUM 0.3 mg/dL (0.6-1.2); GFR AFRICAN-AMERICAN > 60.0 ml/min (>90); GFR NON AFRICAN-AMERICAN > 60.0 ml/min; GLUCOSE 149 mg/dL (70-105); MAGNESIUM 1.9 mg/dL (1.9-2.7); POTASSIUM SERUM 4.3 mEq/L (3.5-5.1); SODIUM SERUM 138 mEq/L (136-145)
--- NOTE | 2018-04-13 06:58 | Internal Medicine Prog Note ---
Internal Medicine Subjective - Subjective Service Date: 04/13/18 (No acute events. Tolerating feeds well. Remains tachycardic.) Patient is:: awake, non-verbal Per staff patient has:: no adverse event Internal Medicine Objective - Results Result Diagrams: 04/13/18 06:00 04/13/18 06:00 Recent Labs: Laboratory Last Values WBC 6.3 Th/cmm (4.8-10.8) 04/13/18 06:00 RBC 3.30 Mil/cmm (3.80-5.10) L 04/13/18 06:00 Hgb 10.7 gm/dL (12-16) L 04/13/18 06:00 Hct 32.1 % (41.0-60) L 04/13/18 06:00 MCV 97.5 fl (81-100) 04/13/18 06:00 MCH 32.6 pg (27.0-31.0) H 04/13/18 06:00 MCHC Differential 33.4 pg (28.0-36.0) 04/13/18 06:00 RDW 11.4 % (11.5-20.0) L 04/13/18 06:00 Plt Count 236 Th/cmm (150-400) 04/13/18 06:00 MPV 9.4 fl 04/13/18 06:00 Add Manual Diff YES 04/09/18 04:10 Neutrophils % 85.6 % (40.0-80.0) H 04/13/18 06:00 Band Neutrophils % 1 % (0-10) 04/09/18 04:10 Lymphocytes % 10.1 % (20.0-50.0) L 04/13/18 06:00 Monocytes % 3.6 % (2.0-10.0) 04/13/18 06:00 Eosinophils % 0.5 % (0.0-5.0) 04/13/18 06:00 Basophils % 0.2 % (0.0-2.0) 04/13/18 06:00 Neutrophils (Manual) 82 % (40-80) H 04/09/18 04:10 Lymphocytes 10 % (20-50) L 04/09/18 04:10 Monocytes 6 % (2-10) 04/09/18 04:10 Eosinophils 1 % (0-5) 04/09/18 04:10 ESR 41 mm/hr (0-30) H 03/22/18 04:50 PT 10.6 SECONDS (9.5-11.5) 04/08/18 05:30 INR 1.02 (0.5-1.4) 04/08/18 05:30 Specimen Source art 04/09/18 14:57 Sample Site Left Radial 04/09/18 14:57 pH 7.45 (7.35-7.45) 04/09/18 14:57 pCO2 33.7 mmHg (35.0-45.0) L 04/09/18 14:57 pO2 104.0 mmHg (80.0-100.0) H 04/09/18 14:57 HCO3 22.9 mEq/L (20.0-26.0) 04/09/18 14:57 Base Excess -0.3 mEq/L (-3.0-3.0) 04/09/18 14:57 O2 Saturation 98.0 % (92.0-100.0) 04/09/18 14:57 Herman Test pos 04/09/18 14:57 Vent Rate na 04/09/18 14:57 Inspired O2 30 04/09/18 14:57 Tidal Volume na 04/09/18 14:57 PEEP na 04/09/18 14:57 Pressure (ins/psv/peep) na 04/09/18 14:57 Critical Value RNinofranco 04/09/18 14:57 Sodium 138 mEq/L (136-145) 04/13/18 06:00 Potassium 4.3 mEq/L (3.5-5.1) 04/13/18 06:00 Chloride 104 mEq/L (98-107) 04/13/18 06:00 Carbon Dioxide 25.5 mEq/L (21.0-31.0) 04/13/18 06:00 Anion Gap 12.8 (7.0-16.0) 04/13/18 06:00 BUN 17 mg/dL (7-25) 04/13/18 06:00 Creatinine 0.3 mg/dL (0.6-1.2) L 04/13/18 06:00 Est GFR ( Amer) > 60.0 ml/min (>90) 04/13/18 06:00 Est GFR (Non-Af Amer) > 60.0 ml/min 04/13/18 06:00 BUN/Creatinine Ratio 56.7 04/13/18 06:00 Glucose 149 mg/dL (70-105) H 04/13/18 06:00 POC Glucose 120 MG/DL (70 - 105) H 04/11/18 10:34 Whole Bld Lactic Acid 1.20 mmol/L (0.60-1.99) 03/20/18 19:15 Calcium 8.1 mg/dL (8.6-10.3) L 04/13/18 06:00 Phosphorus 3.5 mg/dL (2.5-5.0) 04/11/18 04:45 Magnesium 1.9 mg/dL (1.9-2.7) 04/13/18 06:00 Total Bilirubin 0.4 mg/dL (0.3-1.0) 04/05/18 04:35 Direct Bilirubin 0.47 mg/dL (0.0-0.2) H 03/29/18 04:35 AST 36 U/L (13-39) 04/05/18 04:35 ALT 38 U/L (7-52) 04/05/18 04:35 Alkaline Phosphatase 85 U/L (34-104) 04/05/18 04:35 C-Reactive Protein < 0.2 mg/dL (0.0-0.9) 03/22/18 04:50 Total Protein 6.8 gm/dL (6.0-8.3) 04/05/18 04:35 Albumin 3.2 gm/dL (3.7-5.3) L 04/05/18 04:35 Globulin 3.6 gm/dL 04/05/18 04:35 Albumin/Globulin Ratio 0.9 (1.0-1.8) L 04/05/18 04:35 Prealbumin 13 mg/dL (10-36) 04/05/18 04:35 Triglycerides 109 mg/dL (<150) 04/05/18 04:35 Cholesterol 143 mg/dL (<200) 04/05/18 04:35 LDL Cholesterol Direct 87 mg/dL (75-193) 03/21/18 04:45 HDL Cholesterol 65 mg/dL (23-92) 03/21/18 04:45 TSH 1.11 uIU/ml (0.34-5.60) 03/21/18 04:45 Vancomycin Trough 14.4 ug/mL (5-10) H 03/24/18 20:28 - Physical Exam Vitals and I&O: Vital Signs Temp 97.5 F 04/13/18 04:00 Pulse 118 04/13/18 05:39 Resp 17 04/13/18 04:00 BP 103/55 04/13/18 05:39 Pulse Ox 91 04/13/18 04:00 Intake & Output 04/12/18 04/12/18 04/13/18 06:59 18:59 06:59 Intake Total 905 850 800 Balance 905 850 800 Weight (lbs) 41.322 kg 41.277 kg 41.277 kg Intake: Intake, IV Amount 105 Levetiracetam 500 mg In 105 Sodium Chloride 0.9% 100 ml @ 400 mls/hr IV Q12H [facility] Rx#:[id number] Tube Feeding 600 550 600 Other 200 300 200 Other: # Voids 3 3 3 # Bowel Movements 0 0 Weight Source Bedscale Bedscale Bedscale Active Medications: Current Medications Acetaminophen (Tylenol 650mg/20.3ml Suspension) 650 mg GT Q4HR PRN PRN Reason: Pain Or Fever >100 Stop: 05/20/18 10:46 Acetylcysteine (Mucomyst 20%) 3 ml HHN Q6HRT [facility] Stop: 06/09/18 18:59 Last Admin: 04/13/18 01:05 Dose: 3 ml Albuterol/Ipratropium (Duoneb Neb) 3 ml HHN [id number] PRN PRN Reason: sob Stop: 05/20/18 10:46 Last Admin: 04/08/18 14:39 Dose: 3 ml Albuterol/Ipratropium (Duoneb Neb) 3 ml HHN Q6HRT [facility] Stop: 06/07/18 18:59 Last Admin: 04/13/18 01:05 Dose: 3 ml Bisacodyl (Dulcolax 10 Mg Supp) 10 mg RC Q96H PRN PRN Reason: Constipation Stop: 05/20/18 10:46 Last Admin: 03/22/18 19:42 Dose: 10 mg Calcium/Vitamin D (Oscal W/Vitamin D) 2 tab GT BID [facility] Stop: 05/31/18 08:59 Last Admin: 04/12/18 16:55 Dose: 2 tab Carbamazepine (Tegretol) 400 mg GT Q12HR@0900,2100 [facility] Stop: 05/20/18 10:59 Last Admin: 04/12/18 22:06 Dose: 400 mg Diltiazem HCl (Cardizem) 30 mg PO Q8HR [facility] Stop: 06/09/18 20:59 Last Admin: 04/13/18 05:38 Dose: 30 mg Diltiazem HCl (Cardizem) 10 mg IVP Q4H PRN PRN Reason: Tachycardia Stop: 06/09/18 14:59 Last Admin: 04/11/18 16:28 Dose: 10 mg Docusate Sodium (Colace) 200 mg GT BID [facility] Stop: 05/20/18 10:59 Last Admin: 04/12/18 16:55 Dose: 200 mg Hydralazine HCl (Apresoline 20 Mg/Ml) 20 mg IV Q6HR PRN PRN Reason: SBP>160 Stop: 05/23/18 13:11 Ibuprofen (Motrin) 400 mg PO TID [facility] Stop: 06/11/18 13:59 Last Admin: 04/12/18 22:05 Dose: 400 mg Lactobacillus Rhamnosus (Culturelle 15b) 1 each PO DAILY [facility] Stop: 05/25/18 08:59 Last Admin: 04/12/18 08:49 Dose: 1 each Lactulose (Cephulac) 10 gm GT DAILY PRN PRN Reason: Constipation Last Admin: 03/22/18 13:47 Dose: 10 gm Levetiracetam (Keppra) 500 mg GT BID [facility] Stop: 06/11/18 16:59 Last Admin: 04/12/18 16:55 Dose: 500 mg Magnesium Hydroxide (Milk Of Magnesia) 30 ml GT Q72H PRN PRN Reason: Constipation Stop: 05/20/18 10:48 Methylprednisolone Sodium Succinate (Solu-Medrol) 20 mg IV Q8HR [facility] Stop: 06/11/18 20:59 Last Admin: 04/13/18 05:38 Dose: 20 mg Metoprolol Tartrate (Lopressor) 5 mg IV Q6HR [facility] Stop: 06/07/18 17:59 Last Admin: 04/13/18 05:39 Dose: Not Given Miscellaneous (Probiotic Screen) 1 ea MC PRN PRN PRN Reason: PROTOCOL Stop: 05/24/18 17:10 Morphine Sulfate (Morphine) 1 mg IVP Q4HR PRN PRN Reason: Abdominal Pain Stop: 06/11/18 11:40 Multivitamins/Minerals (Theragran M) 15 ml GT DAILY [facility] Stop: 06/10/18 08:59 Last Admin: 04/12/18 08:50 Dose: 15 ml Nystatin/Triamcinolone Acetonide (Mycolog Ii Cream) 1 appl TP BID [facility] Stop: 06/06/18 10:29 Last Admin: 04/12/18 17:02 Dose: 1 appl Petrolatum (Zinc Oxide) 1 appl TP HS [facility] Stop: 05/21/18 20:59 Last Admin: 04/12/18 22:11 Dose: Not Given Sodium Phosphate (Fleet Enema) 135 ml RC Q96H PRN PRN Reason: IF DULCOLAX INEFFECTIVE Stop: 05/20/18 10:46 General: thin, NAD HEENT: NC/AT, PERRLA, EOMI Neck: No JVD, no No thyromegaly Lungs: CTAB Cardiovascular: tachy, no RRR Abdomen: soft, non-tender, +GT, other (GT SITE WITH IMPROVED ERYTHEMA), no +GT - redness, no +GT - discharge Extremities: clear Neurological: no change, spastic - Procedures Procedures: Procedures Procedure Code Date ASPIR CURETT UTERUS NEC 69.59 06/12/11 CHANGE FEEDING DEVICE IN UP INTEST TRACT, BONE DRIER APPROACH [id number] 01/27/16 CHANGE GASTROSTOMY TUBE 67995 05/21/15 DILATION AND CURETTAGE 62692 06/12/11 EGD BIOPSY SINGLE/MULTIPLE 04885 07/15/16 EXCISION OF ABD SUBCU/FASCIA, OPEN APPROACH [id number] 03/20/18 EXCISION OF ABDOMINAL WALL, OPEN APPROACH [id number] 03/20/18 EXCISION OF STOMACH, ENDO, DIAGN [id number] 07/15/16 EXCISION OF STOMACH, OPEN APPROACH [id number] 03/20/18 INSERTION OF FEEDING DEVICE INTO STOMACH, ENDO [id number] 07/15/16 INSERTION OF FEEDING DEVICE INTO STOMACH, OPEN APPROACH [id number] 03/20/18 [facility] PROC ABDM/PER/OMENT 60551 07/29/13 LAPAROSCOP APPENDECTOMY 47.01 06/14/14 LAPAROSCOP LYSIS-PERITONEAL ADHES 54.51 07/29/13 LAPAROSCOPY APPENDECTOMY 18120 07/29/13 RELEASE OMENTUM, OPEN APPROACH [id number] 03/20/18 REPLACE GASTROSTOMY TUBE 97.02 07/26/14 CXR (04/12): LEFT BASILAR ATELECTASIS, GASSY PATTERN Internal Medicine Assmt/Plan - Assessment Assessment: 1. GTUBE MALFUNCTION WITH LEAKAGE-S/P REPLACEMENT 2. GT SITE CELLULITIS/DRAINAGE (GC FISTULA)-S/P MINI EXLAP WITH GC TAKE DOWN () 3. COMPLEX WOUND INFX-PSEUDOMONAS AERUGINOSA 3. HISTORY OF DYSPHAGIA-PEG PLACEMENT 4. HX OF CONSTIPATION 5. HYPONATREMIA--RESOLVED 6. HX OF SEIZURE DISORDER-STABLE 7. HX OF INTELLECTUAL DISABILITY 8. S/P PICC LINE PLACEMENT 9. ELECTROLYTE IMBALANCE-STABLE/MONITOR. - Plan Plan: CONT WITH CURRENT TELE CARE AND MGT CONT WITH CURRENT PEG FEEDS/MONITOR FOR RESIDUALS CONT WITH LOCAL WOUND CARE CONT WITH OTHER MEDS SCHEDULED MONITOR LYTES. GI/ID FU AWAITING PLACEMENT Nutritional Asmnt/Malnutr-PDOC - Dietary Evaluation Malnutrition Findings (Please click <Entered> for more info): Nutritional Asmnt/Malnutrition Start: 03/21/18 13: 29 Text: Status: Complete Freq: Protocol: Document 03/21/18 13:29 LCHENG (Rec: 03/21/18 13:45 LCHENG [email or web address]) Nutritional Asmnt/Malnutrition Patient General Information Nutritional Screening High Risk Consult Diagnosis displacement of Gtube, Gtube site cellulitis Pertinent Medical Hx/Surgical Hx HTN, PUD?GERD, seizures, hepatitis B and C, developmentally disabled, quadriplegic Subjective Information Consult reiceved for shayna score 11. Pt seen in bed, non verbal noted. Per nurse pt is tolerating current tube feeding. CALEB Rdz asked about TF rate since pt was receiving Jevity 1.5 at [facility] and our hospital only carries Jevity 1.2. Current Diet Order/ Nutrition Support Jevity 1.2 at 40ml/hr x 20hr, providing 960kcal and 44g protein Pertinent Medications oscal w/vit D, colace, nacl 0. 9%, vancomycin Pertinent Labs / Cl 108, Cr 0.4 2/3 Cr 0.4, glucose 109, alb 3 .6 Nutritional Hx/Data Height 1.6 m Height (Calculated Centimeters) 160.0 Current Weight (lbs) 45.359 kg Weight (Calculated Kilograms) 45.4 Weight (Calculated Grams) 87669.2 Lowber Body Weight 115 Body Mass Index (BMI) 17.6 Weight Status Underweight GI Symptoms GI Symptoms None Last BM not indicated Usual diet at home Jevity 1.5 at 40ml/hr x 20hr at [facility] Skin Integrity/Comment: cellulitis reddened to Gtube site shayna 11 Estimated Nutritional Goals Calories/Kcals/Kg 25-30 IBW 52kg Kcals Calculated 8308-9085 Protein g/k-1.2 Protein Calculated 52-62 Fluid: ml 1300-1560ml (1ml/kcal) Nutritional Problem 1. Problem Problem inadequate intake from enteral feeding Etiology current TF regimen not meeting nutritional needs Signs/Symptoms: current TF providing 960kcal and 44g protein Malnutrition Related to Morbid Obesity Malnutrition related to morbid obesity No Intervention/Recommendation Comments 1. Recommend to increase TF rate to Jevity 1.2 at 55ml/hr x 20hr. It provides 1320kcal, 61g protein, 888ml free water, meeting 100% of nutritional needs. RN Kajal notified. 2. Monitor TF rate, tolerance, wt, skin integrity and labs 3. F/U as high risk in 2-3 days, 2/5-2/6 Expected Outcomes/Goals Expected Outcomes/Goals 1. Pt to meet at least 90% of nutritional needs via nutrition support with tolerance 2. Wt stability, skin to remain intact, labs to approach WNL.
[2018-04-13] MEDS: Calcium Carb/Vit D 500 mg/200 U Tab GT SCH ×2 (09:43→17:04)
[2018-04-13] MEDS: Lactobacillus Rhamnosus GG 15 Billion CFU CAP.SPRINK PO SCH (09:44)
[2018-04-13] MEDS: carBAMazepine 200 mg/10 mL UDC GT SCH ×2 (09:44→20:53)
[2018-04-13] MEDS: Multivitamin w/ Minerals 15 mL UDC GT SCH (09:44)
[2018-04-13] MEDS: Levetiracetam 500 mg/5mL 5mL UDSyr *for ORAL USE ONLY GT SCH ×2 (09:44→17:04)
[2018-04-13] MEDS: Docusate Sodium 100 mg/10 mL UD GT SCH ×2 (09:44→17:04)
[2018-04-13 13:10] LABS: HEP A AB IGM Negative (Negative); HEP B CORE IGM Negative (Negative); HEP B SURFACE AG QL Negative (Negative); HEP C ANTIBODY >11.0 s/co ratio (0.0-0.9)
--- NOTE | 2018-04-13 14:23 | General Progress Note ---
Subjective - Review of Systems Service Date: 04/13/18 Subjective: Patient is extubated More awake Tolerating G-tube feeding Objective - Results Result Diagrams: 04/13/18 06:00 04/13/18 06:00 Recent Labs: Laboratory Last Values WBC 6.3 Th/cmm (4.8-10.8) 04/13/18 06:00 RBC 3.30 Mil/cmm (3.80-5.10) L 04/13/18 06:00 Hgb 10.7 gm/dL (12-16) L 04/13/18 06:00 Hct 32.1 % (41.0-60) L 04/13/18 06:00 MCV 97.5 fl (81-100) 04/13/18 06:00 MCH 32.6 pg (27.0-31.0) H 04/13/18 06:00 MCHC Differential 33.4 pg (28.0-36.0) 04/13/18 06:00 RDW 11.4 % (11.5-20.0) L 04/13/18 06:00 Plt Count 236 Th/cmm (150-400) 04/13/18 06:00 MPV 9.4 fl 04/13/18 06:00 Add Manual Diff YES 04/09/18 04:10 Neutrophils % 85.6 % (40.0-80.0) H 04/13/18 06:00 Band Neutrophils % 1 % (0-10) 04/09/18 04:10 Lymphocytes % 10.1 % (20.0-50.0) L 04/13/18 06:00 Monocytes % 3.6 % (2.0-10.0) 04/13/18 06:00 Eosinophils % 0.5 % (0.0-5.0) 04/13/18 06:00 Basophils % 0.2 % (0.0-2.0) 04/13/18 06:00 Neutrophils (Manual) 82 % (40-80) H 04/09/18 04:10 Lymphocytes 10 % (20-50) L 04/09/18 04:10 Monocytes 6 % (2-10) 04/09/18 04:10 Eosinophils 1 % (0-5) 04/09/18 04:10 ESR 41 mm/hr (0-30) H 03/22/18 04:50 PT 10.6 SECONDS (9.5-11.5) 04/08/18 05:30 INR 1.02 (0.5-1.4) 04/08/18 05:30 Specimen Source art 04/09/18 14:57 Sample Site Left Radial 04/09/18 14:57 pH 7.45 (7.35-7.45) 04/09/18 14:57 pCO2 33.7 mmHg (35.0-45.0) L 04/09/18 14:57 pO2 104.0 mmHg (80.0-100.0) H 04/09/18 14:57 HCO3 22.9 mEq/L (20.0-26.0) 04/09/18 14:57 Base Excess -0.3 mEq/L (-3.0-3.0) 04/09/18 14:57 O2 Saturation 98.0 % (92.0-100.0) 04/09/18 14:57 Herman Test pos 04/09/18 14:57 Vent Rate na 04/09/18 14:57 Inspired O2 30 04/09/18 14:57 Tidal Volume na 04/09/18 14:57 PEEP na 04/09/18 14:57 Pressure (ins/psv/peep) na 04/09/18 14:57 Critical Value RNinofranco 04/09/18 14:57 Sodium 138 mEq/L (136-145) 04/13/18 06:00 Potassium 4.3 mEq/L (3.5-5.1) 04/13/18 06:00 Chloride 104 mEq/L (98-107) 04/13/18 06:00 Carbon Dioxide 25.5 mEq/L (21.0-31.0) 04/13/18 06:00 Anion Gap 12.8 (7.0-16.0) 04/13/18 06:00 BUN 17 mg/dL (7-25) 04/13/18 06:00 Creatinine 0.3 mg/dL (0.6-1.2) L 04/13/18 06:00 Est GFR ( Amer) > 60.0 ml/min (>90) 04/13/18 06:00 Est GFR (Non-Af Amer) > 60.0 ml/min 04/13/18 06:00 BUN/Creatinine Ratio 56.7 04/13/18 06:00 Glucose 149 mg/dL (70-105) H 04/13/18 06:00 POC Glucose 120 MG/DL (70 - 105) H 04/11/18 10:34 Whole Bld Lactic Acid 1.20 mmol/L (0.60-1.99) 03/20/18 19:15 Calcium 8.1 mg/dL (8.6-10.3) L 04/13/18 06:00 Phosphorus 3.5 mg/dL (2.5-5.0) 04/11/18 04:45 Magnesium 1.9 mg/dL (1.9-2.7) 04/13/18 06:00 Total Bilirubin 0.4 mg/dL (0.3-1.0) 04/05/18 04:35 Direct Bilirubin 0.47 mg/dL (0.0-0.2) H 03/29/18 04:35 AST 36 U/L (13-39) 04/05/18 04:35 ALT 38 U/L (7-52) 04/05/18 04:35 Alkaline Phosphatase 85 U/L (34-104) 04/05/18 04:35 C-Reactive Protein < 0.2 mg/dL (0.0-0.9) 03/22/18 04:50 Total Protein 6.8 gm/dL (6.0-8.3) 04/05/18 04:35 Albumin 3.2 gm/dL (3.7-5.3) L 04/05/18 04:35 Globulin 3.6 gm/dL 04/05/18 04:35 Albumin/Globulin Ratio 0.9 (1.0-1.8) L 04/05/18 04:35 Prealbumin 13 mg/dL (10-36) 04/05/18 04:35 Triglycerides 109 mg/dL (<150) 04/05/18 04:35 Cholesterol 143 mg/dL (<200) 04/05/18 04:35 LDL Cholesterol Direct 87 mg/dL (75-193) 03/21/18 04:45 HDL Cholesterol 65 mg/dL (23-92) 03/21/18 04:45 Tumor Marker AFP 5.9 ng/mL (0.0-8.3) 04/12/18 05:30 TSH 1.11 uIU/ml (0.34-5.60) 03/21/18 04:45 Vancomycin Trough 14.4 ug/mL (5-10) H 03/24/18 20:28 Hepatitis A IgM Ab Negative (Negative) 04/12/18 05:30 Hep Bs Antigen Negative (Negative) 04/12/18 05:30 Hep B Core IgM Ab Negative (Negative) 04/12/18 05:30 Hepatitis C Antibody >11.0 s/co ratio (0.0-0.9) H 04/12/18 05:30 - Physical Exam Vitals and I&O: Vital Signs Temp 97.6 F 04/13/18 12:49 Pulse 84 04/13/18 13:41 Resp 18 04/13/18 12:49 BP 132/84 04/13/18 13:40 Pulse Ox 98 04/13/18 12:49 Intake & Output 04/12/18 04/13/18 04/13/18 18:59 06:59 18:59 Intake Total 850 800 Balance 850 800 Weight (lbs) 41.277 kg 41.277 kg Intake: Tube Feeding 550 600 Other 300 200 Other: # Voids 3 3 # Bowel Movements 0 Weight Source Bedscale Bedscale Active Medications: Current Medications Acetaminophen (Tylenol 650mg/20.3ml Suspension) 650 mg GT Q4HR PRN PRN Reason: Pain Or Fever >100 Stop: 05/20/18 10:46 Acetylcysteine (Mucomyst 20%) 3 ml HHN Q6HRT [facility] Stop: 06/09/18 18:59 Last Admin: 04/13/18 06:57 Dose: 3 ml Albuterol/Ipratropium (Duoneb Neb) 3 ml HHN [id number] PRN PRN Reason: sob Stop: 05/20/18 10:46 Last Admin: 04/08/18 14:39 Dose: 3 ml Albuterol/Ipratropium (Duoneb Neb) 3 ml HHN Q6HRT [facility] Stop: 06/07/18 18:59 Last Admin: 04/13/18 06:55 Dose: 3 ml Bisacodyl (Dulcolax 10 Mg Supp) 10 mg RC Q96H PRN PRN Reason: Constipation Stop: 05/20/18 10:46 Last Admin: 03/22/18 19:42 Dose: 10 mg Calcium/Vitamin D (Oscal W/Vitamin D) 2 tab GT BID [facility] Stop: 05/31/18 08:59 Last Admin: 04/13/18 09:43 Dose: 2 tab Carbamazepine (Tegretol) 400 mg GT Q12HR@0900,2100 [facility] Stop: 05/20/18 10:59 Last Admin: 04/13/18 09:44 Dose: 400 mg Diltiazem HCl (Cardizem) 30 mg PO Q8HR [facility] Stop: 06/09/18 20:59 Last Admin: 04/13/18 13:41 Dose: 30 mg Diltiazem HCl (Cardizem) 10 mg IVP Q4H PRN PRN Reason: Tachycardia Stop: 06/09/18 14:59 Last Admin: 04/11/18 16:28 Dose: 10 mg Docusate Sodium (Colace) 200 mg GT BID [facility] Stop: 05/20/18 10:59 Last Admin: 04/13/18 09:44 Dose: 200 mg Hydralazine HCl (Apresoline 20 Mg/Ml) 20 mg IV Q6HR PRN PRN Reason: SBP>160 Stop: 05/23/18 13:11 Ibuprofen (Motrin) 400 mg PO TID [facility] Stop: 06/11/18 13:59 Last Admin: 04/13/18 13:41 Dose: 400 mg Lactobacillus Rhamnosus (Culturelle 15b) 1 each PO DAILY [facility] Stop: 05/25/18 08:59 Last Admin: 04/13/18 09:44 Dose: 1 each Lactulose (Cephulac) 10 gm GT DAILY PRN PRN Reason: Constipation Last Admin: 03/22/18 13:47 Dose: 10 gm Levetiracetam (Keppra) 500 mg GT BID [facility] Stop: 06/11/18 16:59 Last Admin: 04/13/18 09:44 Dose: 500 mg Magnesium Hydroxide (Milk Of Magnesia) 30 ml GT Q72H PRN PRN Reason: Constipation Stop: 05/20/18 10:48 Methylprednisolone Sodium Succinate (Solu-Medrol) 20 mg IV Q8HR [facility] Stop: 06/11/18 20:59 Last Admin: 04/13/18 13:38 Dose: 20 mg Metoprolol Tartrate (Lopressor) 5 mg IV Q6HR [facility] Stop: 06/07/18 17:59 Last Admin: 04/13/18 13:40 Dose: 5 mg Miscellaneous (Probiotic Screen) 1 ea MC PRN PRN PRN Reason: PROTOCOL Stop: 05/24/18 17:10 Morphine Sulfate (Morphine) 1 mg IVP Q4HR PRN PRN Reason: Abdominal Pain Stop: 06/11/18 11:40 Multivitamins/Minerals (Theragran M) 15 ml GT DAILY [facility] Stop: 06/10/18 08:59 Last Admin: 04/13/18 09:44 Dose: 15 ml Nystatin/Triamcinolone Acetonide (Mycolog Ii Cream) 1 appl TP BID [facility] Stop: 06/06/18 10:29 Last Admin: 04/13/18 09:44 Dose: 1 appl Petrolatum (Zinc Oxide) 1 appl TP HS [facility] Stop: 05/21/18 20:59 Last Admin: 04/12/18 22:11 Dose: Not Given Sodium Phosphate (Fleet Enema) 135 ml RC Q96H PRN PRN Reason: IF DULCOLAX INEFFECTIVE Stop: 05/20/18 10:46 General: No acute distress HEENT: Atraumatic Neck: Supple Cardiovascular: Regular rate Lungs: Clear to auscultation Abdomen: Bowel sounds, Soft, Other (G-tube in place), no Tender, no Distended, no Rebound, no Mass, no Guarding Extremities: no Edema Neurological: Sensation intact, Cranial nerves 3-12 NL, Reflexes 2+ Skin: Rash Psych/Mental Status: Mood NL - Procedures Procedures: Procedures Procedure Code Date ASPIR CURETT UTERUS NEC 69.59 06/12/11 CHANGE FEEDING DEVICE IN UP INTEST TRACT, [employer] SAL[employer]ERSON APPROACH [id number] 01/27/16 CHANGE GASTROSTOMY TUBE 56159 05/21/15 DILATION AND CURETTAGE 15115 06/12/11 EGD BIOPSY SINGLE/MULTIPLE 99982 07/15/16 EXCISION OF ABD SUBCU/FASCIA, OPEN APPROACH [id number] 03/20/18 EXCISION OF ABDOMINAL WALL, OPEN APPROACH [id number] 03/20/18 EXCISION OF STOMACH, ENDO, DIAGN [id number] 07/15/16 EXCISION OF STOMACH, OPEN APPROACH [id number] 03/20/18 INSERTION OF FEEDING DEVICE INTO STOMACH, ENDO [id number] 07/15/16 INSERTION OF FEEDING DEVICE INTO STOMACH, OPEN APPROACH [id number] 03/20/18 [facility] PROC ABDM/PER/OMENT 60856 07/29/13 LAPAROSCOP APPENDECTOMY 47.01 07/29/13 LAPAROSCOP LYSIS-PERITONEAL ADHES 54.51 07/29/13 LAPAROSCOPY APPENDECTOMY 76310 07/29/13 RELEASE OMENTUM, OPEN APPROACH [id number] 03/20/18 REPLACE GASTROSTOMY TUBE 97.02 07/26/14 Assessment/Plan - Assessment Assessment: G-tube cellulitis Gastrocutaneous fistula Hypernatremia Contractures both upper and lower extremity Protein calorie malnutrition Dementia Cholelithiasis Osteoporosis Patient had surgery laparotomy lysis of adhesion gastrocutaneous fistula and G- tube placement Hypertension Sinus tachycardia improved - Plan Plan: Patient of ventilator Lopressor 5 mg IV every 6 hours to control blood pressure and her heart rate Cardizem 30 mg every 8 hours Cardiac exam 10 mg IV every 4 hours when necessary to control the heart rate Patient clinically stable transferred to [facility] Nutritional Asmnt/Malnutr-PDOC - Dietary Evaluation Malnutrition Findings (Please click <Entered> for more info): Nutritional Asmnt/Malnutrition Start: 03/21/18 13: 29 Text: Status: Complete Freq: Protocol: Document 03/21/18 13:29 LCHENG (Rec: 03/21/18 13:45 LCHENG [email or web address]) Nutritional Asmnt/Malnutrition Patient General Information Nutritional Screening High Risk Consult Diagnosis displacement of Gtube, Gtube site cellulitis Pertinent Medical Hx/Surgical Hx HTN, PUD?GERD, seizures, hepatitis B and C, developmentally disabled, quadriplegic Subjective Information Consult reiceved for shayna score 11. Pt seen in bed, non verbal noted. Per nurse pt is tolerating current tube feeding. CALEB Rdz asked about TF rate since pt was receiving Jevity 1.5 at [facility] and our hospital only carries Jevity 1.2. Current Diet Order/ Nutrition Support Jevity 1.2 at 40ml/hr x 20hr, providing 960kcal and 44g protein Pertinent Medications oscal w/vit D, colace, nacl 0. 9%, vancomycin Pertinent Labs 2/4 Cl 108, Cr 0.4 2/3 Cr 0.4, glucose 109, alb 3 .6 Nutritional Hx/Data Height 1.6 m Height (Calculated Centimeters) 160.0 Current Weight (lbs) 45.359 kg Weight (Calculated Kilograms) 45.4 Weight (Calculated Grams) 86369.2 [place] Body Weight 115 Body Mass Index (BMI) 17.6 Weight Status Underweight GI Symptoms GI Symptoms None Last BM not indicated Usual diet at home Jevity 1.5 at 40ml/hr x 20hr at [facility] Skin Integrity/Comment: cellulitis reddened to Gtube site shayna 11 Estimated Nutritional Goals Calories/Kcals/Kg 25-30 IBW 52kg Kcals Calculated 9851-3058 Protein g/k-1.2 Protein Calculated 52-62 Fluid: ml 1300-1560ml (1ml/kcal) Nutritional Problem 1. Problem Problem inadequate intake from enteral feeding Etiology current TF regimen not meeting nutritional needs Signs/Symptoms: current TF providing 960kcal and 44g protein Malnutrition Related to Morbid Obesity Malnutrition related to morbid obesity No Intervention/Recommendation Comments 1. Recommend to increase TF rate to Jevity 1.2 at 55ml/hr x 20hr. It provides 1320kcal, 61g protein, 888ml free water, meeting 100% of nutritional needs. CALEB Rdz notified. 2. Monitor TF rate, tolerance, wt, skin integrity and labs 3. F/U as high risk in 2-3 days, 2/5-2/6 Expected Outcomes/Goals Expected Outcomes/Goals 1. Pt to meet at least 90% of nutritional needs via nutrition support with tolerance 2. Wt stability, skin to remain intact, labs to approach WNL.
--- NOTE | 2018-04-13 14:38 | GI Progress Note ---
Subjective - Review of Systems Service Date: 04/13/18 Events since last encounter: EVENTS NOTED Objective - Results Result Diagrams: 04/13/18 06:00 04/13/18 06:00 Recent Labs: Laboratory Last Values WBC 6.3 Th/cmm (4.8-10.8) 04/13/18 06:00 RBC 3.30 Mil/cmm (3.80-5.10) L 04/13/18 06:00 Hgb 10.7 gm/dL (12-16) L 04/13/18 06:00 Hct 32.1 % (41.0-60) L 04/13/18 06:00 MCV 97.5 fl (81-100) 04/13/18 06:00 MCH 32.6 pg (27.0-31.0) H 04/13/18 06:00 MCHC Differential 33.4 pg (28.0-36.0) 04/13/18 06:00 RDW 11.4 % (11.5-20.0) L 04/13/18 06:00 Plt Count 236 Th/cmm (150-400) 04/13/18 06:00 MPV 9.4 fl 04/13/18 06:00 Add Manual Diff YES 04/09/18 04:10 Neutrophils % 85.6 % (40.0-80.0) H 04/13/18 06:00 Band Neutrophils % 1 % (0-10) 04/09/18 04:10 Lymphocytes % 10.1 % (20.0-50.0) L 04/13/18 06:00 Monocytes % 3.6 % (2.0-10.0) 04/13/18 06:00 Eosinophils % 0.5 % (0.0-5.0) 04/13/18 06:00 Basophils % 0.2 % (0.0-2.0) 04/13/18 06:00 Neutrophils (Manual) 82 % (40-80) H 04/09/18 04:10 Lymphocytes 10 % (20-50) L 04/09/18 04:10 Monocytes 6 % (2-10) 04/09/18 04:10 Eosinophils 1 % (0-5) 04/09/18 04:10 ESR 41 mm/hr (0-30) H 03/22/18 04:50 PT 10.6 SECONDS (9.5-11.5) 04/08/18 05:30 INR 1.02 (0.5-1.4) 04/08/18 05:30 Specimen Source art 04/09/18 14:57 Sample Site Left Radial 04/09/18 14:57 pH 7.45 (7.35-7.45) 04/09/18 14:57 pCO2 33.7 mmHg (35.0-45.0) L 04/09/18 14:57 pO2 104.0 mmHg (80.0-100.0) H 04/09/18 14:57 HCO3 22.9 mEq/L (20.0-26.0) 04/09/18 14:57 Base Excess -0.3 mEq/L (-3.0-3.0) 04/09/18 14:57 O2 Saturation 98.0 % (92.0-100.0) 04/09/18 14:57 Herman Test pos 04/09/18 14:57 Vent Rate na 04/09/18 14:57 Inspired O2 30 04/09/18 14:57 Tidal Volume na 04/09/18 14:57 PEEP na 04/09/18 14:57 Pressure (ins/psv/peep) na 04/09/18 14:57 Critical Value RNinofranco 04/09/18 14:57 Sodium 138 mEq/L (136-145) 04/13/18 06:00 Potassium 4.3 mEq/L (3.5-5.1) 04/13/18 06:00 Chloride 104 mEq/L (98-107) 04/13/18 06:00 Carbon Dioxide 25.5 mEq/L (21.0-31.0) 04/13/18 06:00 Anion Gap 12.8 (7.0-16.0) 04/13/18 06:00 BUN 17 mg/dL (7-25) 04/13/18 06:00 Creatinine 0.3 mg/dL (0.6-1.2) L 04/13/18 06:00 Est GFR ( Amer) > 60.0 ml/min (>90) 04/13/18 06:00 Est GFR (Non-Af Amer) > 60.0 ml/min 04/13/18 06:00 BUN/Creatinine Ratio 56.7 04/13/18 06:00 Glucose 149 mg/dL (70-105) H 04/13/18 06:00 POC Glucose 120 MG/DL (70 - 105) H 04/11/18 10:34 Whole Bld Lactic Acid 1.20 mmol/L (0.60-1.99) 03/20/18 19:15 Calcium 8.1 mg/dL (8.6-10.3) L 04/13/18 06:00 Phosphorus 3.5 mg/dL (2.5-5.0) 04/11/18 04:45 Magnesium 1.9 mg/dL (1.9-2.7) 04/13/18 06:00 Total Bilirubin 0.4 mg/dL (0.3-1.0) 04/05/18 04:35 Direct Bilirubin 0.47 mg/dL (0.0-0.2) H 03/29/18 04:35 AST 36 U/L (13-39) 04/05/18 04:35 ALT 38 U/L (7-52) 04/05/18 04:35 Alkaline Phosphatase 85 U/L (34-104) 04/05/18 04:35 C-Reactive Protein < 0.2 mg/dL (0.0-0.9) 03/22/18 04:50 Total Protein 6.8 gm/dL (6.0-8.3) 04/05/18 04:35 Albumin 3.2 gm/dL (3.7-5.3) L 04/05/18 04:35 Globulin 3.6 gm/dL 04/05/18 04:35 Albumin/Globulin Ratio 0.9 (1.0-1.8) L 04/05/18 04:35 Prealbumin 13 mg/dL (10-36) 04/05/18 04:35 Triglycerides 109 mg/dL (<150) 04/05/18 04:35 Cholesterol 143 mg/dL (<200) 04/05/18 04:35 LDL Cholesterol Direct 87 mg/dL (75-193) 03/21/18 04:45 HDL Cholesterol 65 mg/dL (23-92) 03/21/18 04:45 Tumor Marker AFP 5.9 ng/mL (0.0-8.3) 04/12/18 05:30 TSH 1.11 uIU/ml (0.34-5.60) 03/21/18 04:45 Vancomycin Trough 14.4 ug/mL (5-10) H 03/24/18 20:28 Hepatitis A IgM Ab Negative (Negative) 04/12/18 05:30 Hep Bs Antigen Negative (Negative) 04/12/18 05:30 Hep B Core IgM Ab Negative (Negative) 04/12/18 05:30 Hepatitis C Antibody >11.0 s/co ratio (0.0-0.9) H 04/12/18 05:30 - Physical Exam Vitals and I&O: Vital Signs Temp 97.6 F 04/13/18 12:49 Pulse 84 04/13/18 13:41 Resp 18 04/13/18 12:49 BP 132/84 04/13/18 13:40 Pulse Ox 98 04/13/18 12:49 Intake & Output 04/12/18 04/13/18 04/13/18 18:59 06:59 18:59 Intake Total 850 800 Balance 850 800 Weight (lbs) 41.277 kg 41.277 kg Intake: Tube Feeding 550 600 Other 300 200 Other: # Voids 3 3 # Bowel Movements 0 Weight Source Bedscale Bedscale Active Medications: Current Medications Acetaminophen (Tylenol 650mg/20.3ml Suspension) 650 mg GT Q4HR PRN PRN Reason: Pain Or Fever >100 Stop: 05/20/18 10:46 Acetylcysteine (Mucomyst 20%) 3 ml HHN Q6HRT [facility] Stop: 06/09/18 18:59 Last Admin: 04/13/18 06:57 Dose: 3 ml Albuterol/Ipratropium (Duoneb Neb) 3 ml HHN [id number] PRN PRN Reason: sob Stop: 05/20/18 10:46 Last Admin: 04/08/18 14:39 Dose: 3 ml Albuterol/Ipratropium (Duoneb Neb) 3 ml HHN Q6HRT [facility] Stop: 06/07/18 18:59 Last Admin: 04/13/18 06:55 Dose: 3 ml Bisacodyl (Dulcolax 10 Mg Supp) 10 mg RC Q96H PRN PRN Reason: Constipation Stop: 05/20/18 10:46 Last Admin: 03/22/18 19:42 Dose: 10 mg Calcium/Vitamin D (Oscal W/Vitamin D) 2 tab GT BID [facility] Stop: 05/31/18 08:59 Last Admin: 04/13/18 09:43 Dose: 2 tab Carbamazepine (Tegretol) 400 mg GT Q12HR@0900,2100 [facility] Stop: 05/20/18 10:59 Last Admin: 04/13/18 09:44 Dose: 400 mg Diltiazem HCl (Cardizem) 30 mg PO Q8HR [facility] Stop: 06/09/18 20:59 Last Admin: 04/13/18 13:41 Dose: 30 mg Diltiazem HCl (Cardizem) 10 mg IVP Q4H PRN PRN Reason: Tachycardia Stop: 06/09/18 14:59 Last Admin: 04/11/18 16:28 Dose: 10 mg Docusate Sodium (Colace) 200 mg GT BID [facility] Stop: 05/20/18 10:59 Last Admin: 04/13/18 09:44 Dose: 200 mg Hydralazine HCl (Apresoline 20 Mg/Ml) 20 mg IV Q6HR PRN PRN Reason: SBP>160 Stop: 05/23/18 13:11 Ibuprofen (Motrin) 400 mg PO TID [facility] Stop: 06/11/18 13:59 Last Admin: 04/13/18 13:41 Dose: 400 mg Lactobacillus Rhamnosus (Culturelle 15b) 1 each PO DAILY [facility] Stop: 05/25/18 08:59 Last Admin: 04/13/18 09:44 Dose: 1 each Lactulose (Cephulac) 10 gm GT DAILY PRN PRN Reason: Constipation Last Admin: 03/22/18 13:47 Dose: 10 gm Levetiracetam (Keppra) 500 mg GT BID [facility] Stop: 06/11/18 16:59 Last Admin: 04/13/18 09:44 Dose: 500 mg Magnesium Hydroxide (Milk Of Magnesia) 30 ml GT Q72H PRN PRN Reason: Constipation Stop: 05/20/18 10:48 Methylprednisolone Sodium Succinate (Solu-Medrol) 20 mg IV Q8HR [facility] Stop: 06/11/18 20:59 Last Admin: 04/13/18 13:38 Dose: 20 mg Metoprolol Tartrate (Lopressor) 5 mg IV Q6HR [facility] Stop: 06/07/18 17:59 Last Admin: 04/13/18 13:40 Dose: 5 mg Miscellaneous (Probiotic Screen) 1 ea MC PRN PRN PRN Reason: PROTOCOL Stop: 05/24/18 17:10 Morphine Sulfate (Morphine) 1 mg IVP Q4HR PRN PRN Reason: Abdominal Pain Stop: 06/11/18 11:40 Multivitamins/Minerals (Theragran M) 15 ml GT DAILY [facility] Stop: 06/10/18 08:59 Last Admin: 04/13/18 09:44 Dose: 15 ml Nystatin/Triamcinolone Acetonide (Mycolog Ii Cream) 1 appl TP BID [facility] Stop: 06/06/18 10:29 Last Admin: 04/13/18 09:44 Dose: 1 appl Petrolatum (Zinc Oxide) 1 appl TP HS [facility] Stop: 05/21/18 20:59 Last Admin: 04/12/18 22:11 Dose: Not Given Sodium Phosphate (Fleet Enema) 135 ml RC Q96H PRN PRN Reason: IF DULCOLAX INEFFECTIVE Stop: 05/20/18 10:46 General: No acute distress HEENT: Atraumatic Neck: Supple Cardiovascular: Regular rate Lungs: Clear to auscultation Abdomen: Bowel sounds, Soft, Other (G-tube in place), no Tender, no Distended, no Rebound, no Mass, no Guarding Extremities: no Edema Neurological: Sensation intact, Cranial nerves 3-12 NL, Reflexes 2+ Skin: Rash Psych/Mental Status: Mood NL - Procedures Procedures: Procedures Procedure Code Date ASPIR CURETT UTERUS NEC 69.59 06/12/11 CHANGE FEEDING DEVICE IN UP INTEST TRACT, [employer] APPROACH [id number] 01/27/16 CHANGE GASTROSTOMY TUBE 93203 05/21/15 DILATION AND CURETTAGE 25241 06/12/11 EGD BIOPSY SINGLE/MULTIPLE 60292 07/15/16 EXCISION OF ABD SUBCU/FASCIA, OPEN APPROACH [id number] 03/20/18 EXCISION OF ABDOMINAL WALL, OPEN APPROACH [id number] 03/20/18 EXCISION OF STOMACH, ENDO, DIAGN [id number] 07/15/16 EXCISION OF STOMACH, OPEN APPROACH [id number] 03/20/18 INSERTION OF FEEDING DEVICE INTO STOMACH, ENDO [id number] 07/15/16 INSERTION OF FEEDING DEVICE INTO STOMACH, OPEN APPROACH [id number] 03/20/18 [facility] PROC ABDM/PER/OMENT 84969 07/29/13 LAPAROSCOP APPENDECTOMY 47.01 07/29/13 LAPAROSCOP LYSIS-PERITONEAL ADHES 54.51 07/29/13 LAPAROSCOPY APPENDECTOMY 83988 07/29/13 RELEASE OMENTUM, OPEN APPROACH [id number] 03/20/18 REPLACE GASTROSTOMY TUBE 97.02 07/26/14 Assessment/Plan - Assessment Assessment: Assessment: # G tube site cellulitis # Dysphagia # Developmental delay As of 03/25, the site looked worse thus the G tube was pulled. Will need to wait for the area to heal prior to inserting a new one On 03/30, there is still erythema and some leakage from the area. Unclear if proper wound care is being applied to this area. On 04/01, the site looks more inflamed. Does not appear to be leakage from NG feeding, but infection on the skin is not improving. on 04/02 - NG tube was pulled bc of tip extruding out of gc fistula site Plan: -appreciate surgical mangement -Start tube feeds per surgical recommendation -G tube support and care
[2018-04-13] MEDS: Zinc Oxide Ointment 60 gm TP SCH (20:54)
--- NOTE | 2018-04-13 23:05 | Progress Notes ---
DATE: 04/13/2018 SURGICAL PROGRESS NOTE TIME: 11:05 a.m. SUBJECTIVE: The patient has been afebrile. Pulse rate has been intermittently tachycardic. Blood pressure is stable. OBJECTIVE: GENERAL: She is resting in bed comfortably in no acute distress. HEENT AND NECK: Within normal limits. CHEST: Clear to auscultation bilaterally. CARDIAC: Regular rate. ABDOMEN: Incision is clean and dry with no evidence of erythema. Cellulitis around the old G-tube site is improved. The old G-tube site is not leaking any more. The G-tube is in use. Tube feeds are ongoing at this time. Tolerating tube feeds well. Gastric residuals are low. No leaking around or bleeding around the new G-tube site. LABORATORY DATA: White blood cell count today is 6.3, H and H is 10.7 and 32.1, platelet count is 236. Chem-7 is otherwise unremarkable as well too. The last chest x-ray results from yesterday reveals left basal atelectatic changes, faint infiltrate of left base cannot be excluded, interval extubation, gaseous several loops of bowel with interposed loops of bowel under the right hemidiaphragm. No gross free air identified. Postsurgical changes of the abdomen are noted. IMPRESSION AND PLAN: Stable postop. No obvious signs of sepsis. Abdominal incision seems to be healing well with no wound infection or drainage. The old gastrostomy tube site has stopped leaking and cellulitis has improved around the old gastrostomy tube site. The new gastrostomy tube is in use, it may be advanced to goal rate. Follow up on the gastric residuals. Surgical follow up as needed. JOB# [id number]
--- NOTE | 2018-04-13 23:50 | Infectious Disease Prog Note ---
Infectious Disease Subjective - Review of Systems Service Date: 04/13/18 Subjective: doing better. Infectious Disease Objective - Results Result Diagrams: 04/13/18 06:00 04/13/18 06:00 Recent Labs: Laboratory Last Values WBC 6.3 Th/cmm (4.8-10.8) 04/13/18 06:00 RBC 3.30 Mil/cmm (3.80-5.10) L 04/13/18 06:00 Hgb 10.7 gm/dL (12-16) L 04/13/18 06:00 Hct 32.1 % (41.0-60) L 04/13/18 06:00 MCV 97.5 fl (81-100) 04/13/18 06:00 MCH 32.6 pg (27.0-31.0) H 04/13/18 06:00 MCHC Differential 33.4 pg (28.0-36.0) 04/13/18 06:00 RDW 11.4 % (11.5-20.0) L 04/13/18 06:00 Plt Count 236 Th/cmm (150-400) 04/13/18 06:00 MPV 9.4 fl 04/13/18 06:00 Add Manual Diff YES 04/09/18 04:10 Neutrophils % 85.6 % (40.0-80.0) H 04/13/18 06:00 Band Neutrophils % 1 % (0-10) 04/09/18 04:10 Lymphocytes % 10.1 % (20.0-50.0) L 04/13/18 06:00 Monocytes % 3.6 % (2.0-10.0) 04/13/18 06:00 Eosinophils % 0.5 % (0.0-5.0) 04/13/18 06:00 Basophils % 0.2 % (0.0-2.0) 04/13/18 06:00 Neutrophils (Manual) 82 % (40-80) H 04/09/18 04:10 Lymphocytes 10 % (20-50) L 04/09/18 04:10 Monocytes 6 % (2-10) 04/09/18 04:10 Eosinophils 1 % (0-5) 04/09/18 04:10 ESR 41 mm/hr (0-30) H 03/22/18 04:50 PT 10.6 SECONDS (9.5-11.5) 04/08/18 05:30 INR 1.02 (0.5-1.4) 04/08/18 05:30 Specimen Source art 04/09/18 14:57 Sample Site Left Radial 04/09/18 14:57 pH 7.45 (7.35-7.45) 04/09/18 14:57 pCO2 33.7 mmHg (35.0-45.0) L 04/09/18 14:57 pO2 104.0 mmHg (80.0-100.0) H 04/09/18 14:57 HCO3 22.9 mEq/L (20.0-26.0) 04/09/18 14:57 Base Excess -0.3 mEq/L (-3.0-3.0) 04/09/18 14:57 O2 Saturation 98.0 % (92.0-100.0) 04/09/18 14:57 Herman Test pos 04/09/18 14:57 Vent Rate na 04/09/18 14:57 Inspired O2 30 04/09/18 14:57 Tidal Volume na 04/09/18 14:57 PEEP na 04/09/18 14:57 Pressure (ins/psv/peep) na 04/09/18 14:57 Critical Value RNinofranco 04/09/18 14:57 Sodium 138 mEq/L (136-145) 04/13/18 06:00 Potassium 4.3 mEq/L (3.5-5.1) 04/13/18 06:00 Chloride 104 mEq/L (98-107) 04/13/18 06:00 Carbon Dioxide 25.5 mEq/L (21.0-31.0) 04/13/18 06:00 Anion Gap 12.8 (7.0-16.0) 04/13/18 06:00 BUN 17 mg/dL (7-25) 04/13/18 06:00 Creatinine 0.3 mg/dL (0.6-1.2) L 04/13/18 06:00 Est GFR ( Amer) > 60.0 ml/min (>90) 04/13/18 06:00 Est GFR (Non-Af Amer) > 60.0 ml/min 04/13/18 06:00 BUN/Creatinine Ratio 56.7 04/13/18 06:00 Glucose 149 mg/dL (70-105) H 04/13/18 06:00 POC Glucose 120 MG/DL (70 - 105) H 04/11/18 10:34 Whole Bld Lactic Acid 1.20 mmol/L (0.60-1.99) 03/20/18 19:15 Calcium 8.1 mg/dL (8.6-10.3) L 04/13/18 06:00 Phosphorus 3.5 mg/dL (2.5-5.0) 04/11/18 04:45 Magnesium 1.9 mg/dL (1.9-2.7) 04/13/18 06:00 Total Bilirubin 0.4 mg/dL (0.3-1.0) 04/05/18 04:35 Direct Bilirubin 0.47 mg/dL (0.0-0.2) H 03/29/18 04:35 AST 36 U/L (13-39) 04/05/18 04:35 ALT 38 U/L (7-52) 04/05/18 04:35 Alkaline Phosphatase 85 U/L (34-104) 04/05/18 04:35 C-Reactive Protein < 0.2 mg/dL (0.0-0.9) 03/22/18 04:50 Total Protein 6.8 gm/dL (6.0-8.3) 04/05/18 04:35 Albumin 3.2 gm/dL (3.7-5.3) L 04/05/18 04:35 Globulin 3.6 gm/dL 04/05/18 04:35 Albumin/Globulin Ratio 0.9 (1.0-1.8) L 04/05/18 04:35 Prealbumin 13 mg/dL (10-36) 04/05/18 04:35 Triglycerides 109 mg/dL (<150) 04/05/18 04:35 Cholesterol 143 mg/dL (<200) 04/05/18 04:35 LDL Cholesterol Direct 87 mg/dL (75-193) 03/21/18 04:45 HDL Cholesterol 65 mg/dL (23-92) 03/21/18 04:45 Tumor Marker AFP 5.9 ng/mL (0.0-8.3) 04/12/18 05:30 TSH 1.11 uIU/ml (0.34-5.60) 03/21/18 04:45 Vancomycin Trough 14.4 ug/mL (5-10) H 03/24/18 20:28 Hepatitis A IgM Ab Negative (Negative) 04/12/18 05:30 Hep Bs Antigen Negative (Negative) 04/12/18 05:30 Hep B Core IgM Ab Negative (Negative) 04/12/18 05:30 Hepatitis C Antibody >11.0 s/co ratio (0.0-0.9) H 04/12/18 05:30 - Physical Exam Vitals and I&O: Vital Signs Temp 97.5 F 04/13/18 20:00 Pulse 111 04/13/18 20:53 Resp 20 04/13/18 20:00 BP 114/78 04/13/18 20:00 Pulse Ox 96 04/13/18 20:00 Intake & Output 04/13/18 04/13/18 04/14/18 06:59 18:59 06:59 Intake Total 800 400 Balance 800 400 Weight (lbs) 41.277 kg 46.765 kg Intake: Oral 0 Tube Feeding 600 400 Other 200 Other: # Voids 3 2 # Bowel Movements 0 Weight Source Bedscale Bedscale Active Medications: Current Medications Acetaminophen (Tylenol 650mg/20.3ml Suspension) 650 mg GT Q4HR PRN PRN Reason: Pain Or Fever >100 Stop: 05/20/18 10:46 Acetylcysteine (Mucomyst 20%) 3 ml HHN Q6HRT [facility] Stop: 06/09/18 18:59 Last Admin: 04/13/18 19:28 Dose: 3 ml Albuterol/Ipratropium (Duoneb Neb) 3 ml HHN [id number] PRN PRN Reason: sob Stop: 05/20/18 10:46 Last Admin: 04/08/18 14:39 Dose: 3 ml Albuterol/Ipratropium (Duoneb Neb) 3 ml HHN Q6HRT [facility] Stop: 06/07/18 18:59 Last Admin: 04/13/18 19:28 Dose: 3 ml Bisacodyl (Dulcolax 10 Mg Supp) 10 mg RC Q96H PRN PRN Reason: Constipation Stop: 05/20/18 10:46 Last Admin: 03/22/18 19:42 Dose: 10 mg Calcium/Vitamin D (Oscal W/Vitamin D) 2 tab GT BID [facility] Stop: 05/31/18 08:59 Last Admin: 04/13/18 17:04 Dose: 2 tab Carbamazepine (Tegretol) 400 mg GT Q12HR@0900,2100 [facility] Stop: 05/20/18 10:59 Last Admin: 04/13/18 20:53 Dose: 400 mg Diltiazem HCl (Cardizem) 30 mg PO Q8HR [facility] Stop: 06/09/18 20:59 Last Admin: 04/13/18 20:53 Dose: 30 mg Diltiazem HCl (Cardizem) 10 mg IVP Q4H PRN PRN Reason: Tachycardia Stop: 06/09/18 14:59 Last Admin: 04/11/18 16:28 Dose: 10 mg Docusate Sodium (Colace) 200 mg GT BID [facility] Stop: 05/20/18 10:59 Last Admin: 04/13/18 17:04 Dose: 200 mg Hydralazine HCl (Apresoline 20 Mg/Ml) 20 mg IV Q6HR PRN PRN Reason: SBP>160 Stop: 05/23/18 13:11 Ibuprofen (Motrin) 400 mg PO TID [facility] Stop: 06/11/18 13:59 Last Admin: 04/13/18 20:53 Dose: 400 mg Lactobacillus Rhamnosus (Culturelle 15b) 1 each PO DAILY [facility] Stop: 05/25/18 08:59 Last Admin: 04/13/18 09:44 Dose: 1 each Lactulose (Cephulac) 10 gm GT DAILY PRN PRN Reason: Constipation Last Admin: 03/22/18 13:47 Dose: 10 gm Levetiracetam (Keppra) 500 mg GT BID [facility] Stop: 06/11/18 16:59 Last Admin: 04/13/18 17:04 Dose: 500 mg Magnesium Hydroxide (Milk Of Magnesia) 30 ml GT Q72H PRN PRN Reason: Constipation Stop: 05/20/18 10:48 Methylprednisolone Sodium Succinate (Solu-Medrol) 20 mg IV Q8HR [facility] Stop: 06/11/18 20:59 Last Admin: 04/13/18 20:54 Dose: 20 mg Metoprolol Tartrate (Lopressor) 5 mg IV Q6HR [facility] Stop: 06/07/18 17:59 Last Admin: 04/13/18 17:12 Dose: 5 mg Miscellaneous (Probiotic Screen) 1 ea MC PRN PRN PRN Reason: PROTOCOL Stop: 05/24/18 17:10 Morphine Sulfate (Morphine) 1 mg IVP Q4HR PRN PRN Reason: Abdominal Pain Stop: 06/11/18 11:40 Multivitamins/Minerals (Theragran M) 15 ml GT DAILY G[facility]EN Stop: 06/10/18 08:59 Last Admin: 04/13/18 09:44 Dose: 15 ml Nystatin/Triamcinolone Acetonide (Mycolog Ii Cream) 1 appl TP BID [facility] Stop: 06/06/18 10:29 Last Admin: 04/13/18 17:05 Dose: 1 appl Petrolatum (Zinc Oxide) 1 appl TP HS GALEN Stop: 05/21/18 20:59 Last Admin: 04/13/18 20:54 Dose: 1 appl Sodium Phosphate (Fleet Enema) 135 ml RC Q96H PRN PRN Reason: IF DULCOLAX INEFFECTIVE Stop: 05/20/18 10:46 General: no acute distress, well developed, well nourished HEENT: atraumatic, normocephalic, PERRLA, EOMI, moist mucous membrane Neck: supple, no thyromegaly, no lymphadenopathy, no rigid, no lines Cardiovascular: S1S2, regular, systolic murmur Lungs: clear to auscultation bilaterally, clear to percussion Abdomen: soft, other (g tube site is ok), no tender, no distended, no mass, no hepatomegaly Extremities: no cyanosis, no clubbing, no edema Neurological: awake, alert Skin: intact - Procedures Procedures: Procedures Procedure Code Date ASPIR CURETT UTERUS NEC 69.59 06/12/11 CHANGE FEEDING DEVICE IN UP INTEST TRACT, 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 [id number] 01/27/16 CHANGE GASTROSTOMY TUBE 53113 05/21/15 DILATION AND CURETTAGE 28008 06/12/11 EGD BIOPSY SINGLE/MULTIPLE 32216 07/15/16 EXCISION OF ABD SUBCU/FASCIA, OPEN APPROACH [id number] 03/20/18 EXCISION OF ABDOMINAL WALL, OPEN APPROACH [id number] 03/20/18 EXCISION OF STOMACH, ENDO, DIAGN [id number] 07/15/16 EXCISION OF STOMACH, OPEN APPROACH [id number] 03/20/18 INSERTION OF FEEDING DEVICE INTO STOMACH, ENDO [id number] 07/15/16 INSERTION OF FEEDING DEVICE INTO STOMACH, OPEN APPROACH [id number] 03/20/18 LAPARO PROC ABDM/PER/OMENT 50180 07/29/13 LAPAROSCOP APPENDECTOMY 47.01 07/29/13 LAPAROSCOP LYSIS-PERITONEAL ADHES 54.51 07/29/13 LAPAROSCOPY APPENDECTOMY 90333 07/29/13 RELEASE OMENTUM, OPEN APPROACH [id number] 03/20/18 REPLACE GASTROSTOMY TUBE 97.02 07/26/14 Infectious Disease Assmt/Plan - Assessment Assessment: 1. Abdominal wall cellulitis, excoriation. 2. Seizure disorder. 3. Hepatitis C. 4. Mentally challenged. - Plan Plan: Continue symptomatic treatment. off antibiotics. Wound care is the mainstay of the treatment. Afp Nutritional Asmnt/Malnutr-PDOC - Dietary Evaluation Malnutrition Findings (Please click <Entered> for more info): Nutritional Asmnt/Malnutrition Start: 03/21/18 13: 29 Text: Status: Complete Freq: Protocol: Document 03/21/18 13:29 LCHENG (Rec: 03/21/18 13:45 LCHENG [email or web address]) Nutritional Asmnt/Malnutrition Patient General Information Nutritional Screening High Risk Consult Diagnosis displacement of Gtube, Gtube site cellulitis Pertinent Medical Hx/Surgical Hx HTN, PUD?GERD, seizures, hepatitis B and C, developmentally disabled, quadriplegic Subjective Information Consult reiceved for shayna score 11. Pt seen in bed, non verbal noted. Per nurse pt is tolerating current tube feeding. CALEB Rdz asked about TF rate since pt was receiving Jevity 1.5 at [facility] and our hospital only carries Jevity 1.2. Current Diet Order/ Nutrition Support Jevity 1.2 at 40ml/hr x 20hr, providing 960kcal and 44g protein Pertinent Medications oscal w/vit D, colace, nacl 0. 9%, vancomycin Pertinent Labs 2/4 Cl 108, Cr 0.4 2/3 Cr 0.4, glucose 109, alb 3 .6 Nutritional Hx/Data Height 1.6 m Height (Calculated Centimeters) 160.0 Current Weight (lbs) 45.359 kg Weight (Calculated Kilograms) 45.4 Weight (Calculated Grams) 98813.2 [place] Body Weight 115 Body Mass Index (BMI) 17.6 Weight Status Underweight GI Symptoms GI Symptoms None Last BM not indicated Usual diet at home Jevity 1.5 at 40ml/hr x 20hr at [facility] Skin Integrity/Comment: cellulitis reddened to Gtube site shayna 11 Estimated Nutritional Goals Calories/Kcals/Kg 25-30 IBW 52kg Kcals Calculated 3152-6961 Protein g/k-1.2 Protein Calculated 52-62 Fluid: ml 1300-1560ml (1ml/kcal) Nutritional Problem 1. Problem Problem inadequate intake from enteral feeding Etiology current TF regimen not meeting nutritional needs Signs/Symptoms: current TF providing 960kcal and 44g protein Malnutrition Related to Morbid Obesity Malnutrition related to morbid obesity No Intervention/Recommendation Comments 1. Recommend to increase TF rate to Jevity 1.2 at 55ml/hr x 20hr. It provides 1320kcal, 61g protein, 888ml free water, meeting 100% of nutritional needs. CALEB Rdz notified. 2. Monitor TF rate, tolerance, wt, skin integrity and labs 3. F/U as high risk in 2-3 days, 2/5-2/6 Expected Outcomes/Goals Expected Outcomes/Goals 1. Pt to meet at least 90% of nutritional needs via nutrition support with tolerance 2. Wt stability, skin to remain intact, labs to approach WNL.
[2018-04-14] MEDS: Metoprolol tartrate 1 mg/ml 5mL Amp IV SCH ×4 (00:28→17:27)
[2018-04-14] MEDS: Albuterol/Ipratropium Neb 3 ML AERS HHN SCH ×4 (02:31→18:22)
[2018-04-14] MEDS: Diltiazem 30 mg Tab PO SCH ×2 (05:08→14:01)
[2018-04-14 06:37] LABS: % BASOPHILS 0.2 % (0.0-2.0); % EOSINOPHILS 0.2 % (0.0-5.0); % LYMPHOCYTES 7.5 % (20.0-50.0); % MONOCYTES 7.3 % (2.0-10.0); % NEUTROPHILS 84.8 % (40.0-80.0); HEMATOCRIT 34.5 % (41.0-60); HEMOGLOBIN 11.6 gm/dL (12-16); MEAN CELL VOLUME 97.9 fl (81-100); MEAN CORPUSCULAR HEMOGLOBIN 32.8 pg (27.0-31.0); MEAN CORPUSCULAR HGB CONC 33.5 pg (28.0-36.0); MEAN PLATELET VOLUME 9.6 fl; MONOCYTE ABSOLUTE 0.9 Th/cmm (0.3-1.0); NEUTROPHILE ABSOLUTE 10.9 Th/cmm (1.8-8.0); RED BLOOD COUNT 3.53 Mil/cmm (3.80-5.10); RED CELL DISTRIBUTION WIDTH 11.4 % (11.5-20.0)
[2018-04-14 06:42] LABS: PLATELET COUNT 327 Th/cmm (150-400); WHITE BLOOD COUNT 12.8 Th/cmm (4.8-10.8)
--- NOTE | 2018-04-14 06:59 | Progress Notes ---
DATE: 04/13/2018 PULMONARY PROGRESS NOTE SUBJECTIVE: The patient appears to be doing okay, no distress, still appears less congested. OBJECTIVE: VITAL SIGNS: Temperature 98.5, pulse 100, respiration 20, blood pressure 108/83, saturation 96%. CHEST: Good breath sounds, decreased rhonchi. HEART: Regular rate and rhythm. ABDOMEN: Soft. EXTREMITIES: No edema. LABORATORY DATA: WBC 6.3, hemoglobin 10.7, hematocrit 32.1, platelets is 236. Sodium is 130, potassium 4.3, BUN 17, creatinine 0.3. IMPRESSION: 1. Respiratory failure. 2. Pneumonia. 3. Dysphagia. 4. Weakness. 5. Status post abdominal surgery. PLAN: 1. Nebulizer. 2. Antibiotics. 3. G-tube feeding. Supportive care. Follow up chest x-ray. JOB# [id number]
[2018-04-14 07:03] LABS: ANION GAP 13.5 (7.0-16.0); BUN - UREA NITROGEN 20 mg/dL (7-25); CALCIUM SERUM 8.6 mg/dL (8.6-10.3); CARBON DIOXIDE 29.6 mEq/L (21.0-31.0); CHLORIDE 101 mEq/L (98-107); CREATININE - SERUM 0.4 mg/dL (0.6-1.2); GFR AFRICAN-AMERICAN > 60.0 ml/min (>90); GFR NON AFRICAN-AMERICAN > 60.0 ml/min; GLUCOSE 141 mg/dL (70-105); MAGNESIUM 1.7 mg/dL (1.9-2.7); POTASSIUM SERUM 4.1 mEq/L (3.5-5.1); SODIUM SERUM 140 mEq/L (136-145)
[2018-04-14 08:02] LABS: LYMPHOCYTE 10 % (20-50); MONOCYTE 8 % (2-10); NEUTROPHILS 82 % (40-80); PLATELET ESTIMATE ADEQUATE (NORMAL)
--- NOTE | 2018-04-14 08:15 | Diagnostic Imaging Report ---
Portable chest x-ray HISTORY: Shortness of breath Compared to prior exam of April 12, 2018, the patient is markedly rotated. Mild density noted in the left lower hemithorax. A minimal effusion cannot be excluded. No other focal processes. IMPRESSION: 1. Slight increased density left lower hemithorax. Question minimal pleural effusion.
[2018-04-14] MEDS: Lactobacillus Rhamnosus GG 15 Billion CFU CAP.SPRINK PO SCH (08:29)
[2018-04-14] MEDS: Calcium Carb/Vit D 500 mg/200 U Tab GT SCH ×2 (08:29→17:26)
[2018-04-14] MEDS: Levetiracetam 500 mg/5mL 5mL UDSyr *for ORAL USE ONLY GT SCH ×2 (08:30→17:25)
[2018-04-14] MEDS: Multivitamin w/ Minerals 15 mL UDC GT SCH (08:30)
[2018-04-14] MEDS: carBAMazepine 200 mg/10 mL UDC GT SCH (08:30)
[2018-04-14] MEDS: Docusate Sodium 100 mg/10 mL UD GT SCH ×2 (08:30→17:25)
--- NOTE | 2018-04-14 10:55 | General Progress Note ---
Subjective - Review of Systems Service Date: 04/14/18 Subjective: Patient is extubated More awake Tolerating G-tube feeding Patient more awake Objective - Results Result Diagrams: 04/14/18 05:40 04/14/18 05:40 Recent Labs: Laboratory Last Values WBC 12.8 Th/cmm (4.8-10.8) H D 04/14/18 05:40 RBC 3.53 Mil/cmm (3.80-5.10) L 04/14/18 05:40 Hgb 11.6 gm/dL (12-16) L 04/14/18 05:40 Hct 34.5 % (41.0-60) L 04/14/18 05:40 MCV 97.9 fl (81-100) 04/14/18 05:40 MCH 32.8 pg (27.0-31.0) H 04/14/18 05:40 MCHC Differential 33.5 pg (28.0-36.0) 04/14/18 05:40 RDW 11.4 % (11.5-20.0) L 04/14/18 05:40 Plt Count 327 Th/cmm (150-400) D 04/14/18 05:40 MPV 9.6 fl 04/14/18 05:40 Add Manual Diff YES 04/09/18 04:10 Neutrophils % 84.8 % (40.0-80.0) H 04/14/18 05:40 Band Neutrophils % 1 % (0-10) 04/09/18 04:10 Lymphocytes % 7.5 % (20.0-50.0) L 04/14/18 05:40 Monocytes % 7.3 % (2.0-10.0) 04/14/18 05:40 Eosinophils % 0.2 % (0.0-5.0) 04/14/18 05:40 Basophils % 0.2 % (0.0-2.0) 04/14/18 05:40 Neutrophils (Manual) 82 % (40-80) H 04/14/18 05:40 Lymphocytes 10 % (20-50) L 04/14/18 05:40 Monocytes 8 % (2-10) 04/14/18 05:40 Eosinophils 1 % (0-5) 04/09/18 04:10 Platelet Estimate ADEQUATE (NORMAL) 04/14/18 05:40 ESR 41 mm/hr (0-30) H 03/22/18 04:50 PT 10.6 SECONDS (9.5-11.5) 04/08/18 05:30 INR 1.02 (0.5-1.4) 04/08/18 05:30 Specimen Source art 04/09/18 14:57 Sample Site Left Radial 04/09/18 14:57 pH 7.45 (7.35-7.45) 04/09/18 14:57 pCO2 33.7 mmHg (35.0-45.0) L 04/09/18 14:57 pO2 104.0 mmHg (80.0-100.0) H 04/09/18 14:57 HCO3 22.9 mEq/L (20.0-26.0) 04/09/18 14:57 Base Excess -0.3 mEq/L (-3.0-3.0) 04/09/18 14:57 O2 Saturation 98.0 % (92.0-100.0) 04/09/18 14:57 Herman Test pos 04/09/18 14:57 Vent Rate na 04/09/18 14:57 Inspired O2 30 04/09/18 14:57 Tidal Volume na 04/09/18 14:57 PEEP na 04/09/18 14:57 Pressure (ins/psv/peep) na 04/09/18 14:57 Critical Value RNinofranco 04/09/18 14:57 Sodium 140 mEq/L (136-145) 04/14/18 05:40 Potassium 4.1 mEq/L (3.5-5.1) 04/14/18 05:40 Chloride 101 mEq/L (98-107) 04/14/18 05:40 Carbon Dioxide 29.6 mEq/L (21.0-31.0) 04/14/18 05:40 Anion Gap 13.5 (7.0-16.0) 04/14/18 05:40 BUN 20 mg/dL (7-25) 04/14/18 05:40 Creatinine 0.4 mg/dL (0.6-1.2) L 04/14/18 05:40 Est GFR ( Amer) > 60.0 ml/min (>90) 04/14/18 05:40 Est GFR (Non-Af Amer) > 60.0 ml/min 04/14/18 05:40 BUN/Creatinine Ratio 50.0 04/14/18 05:40 Glucose 141 mg/dL (70-105) H 04/14/18 05:40 POC Glucose 120 MG/DL (70 - 105) H 04/11/18 10:34 Whole Bld Lactic Acid 1.20 mmol/L (0.60-1.99) 03/20/18 19:15 Calcium 8.6 mg/dL (8.6-10.3) 04/14/18 05:40 Phosphorus 3.5 mg/dL (2.5-5.0) 04/11/18 04:45 Magnesium 1.7 mg/dL (1.9-2.7) L 04/14/18 05:40 Total Bilirubin 0.4 mg/dL (0.3-1.0) 04/05/18 04:35 Direct Bilirubin 0.47 mg/dL (0.0-0.2) H 03/29/18 04:35 AST 36 U/L (13-39) 04/05/18 04:35 ALT 38 U/L (7-52) 04/05/18 04:35 Alkaline Phosphatase 85 U/L (34-104) 04/05/18 04:35 C-Reactive Protein < 0.2 mg/dL (0.0-0.9) 03/22/18 04:50 Total Protein 6.8 gm/dL (6.0-8.3) 04/05/18 04:35 Albumin 3.2 gm/dL (3.7-5.3) L 04/05/18 04:35 Globulin 3.6 gm/dL 04/05/18 04:35 Albumin/Globulin Ratio 0.9 (1.0-1.8) L 04/05/18 04:35 Prealbumin 13 mg/dL (10-36) 04/05/18 04:35 Triglycerides 109 mg/dL (<150) 04/05/18 04:35 Cholesterol 143 mg/dL (<200) 04/05/18 04:35 LDL Cholesterol Direct 87 mg/dL (75-193) 03/21/18 04:45 HDL Cholesterol 65 mg/dL (23-92) 03/21/18 04:45 Tumor Marker AFP 5.9 ng/mL (0.0-8.3) 04/12/18 05:30 TSH 1.11 uIU/ml (0.34-5.60) 03/21/18 04:45 Vancomycin Trough 14.4 ug/mL (5-10) H 03/24/18 20:28 Hepatitis A IgM Ab Negative (Negative) 04/12/18 05:30 Hep Bs Antigen Negative (Negative) 04/12/18 05:30 Hep B Core IgM Ab Negative (Negative) 04/12/18 05:30 Hepatitis C Antibody >11.0 s/co ratio (0.0-0.9) H 04/12/18 05:30 - Physical Exam Vitals and I&O: Vital Signs Temp 98.6 F 04/14/18 04:00 Pulse 100 04/14/18 10:03 Resp 18 04/14/18 10:03 BP 164/104 04/14/18 08:26 Pulse Ox 96 04/14/18 10:03 Intake & Output 04/13/18 04/14/18 04/14/18 18:59 06:59 18:59 Intake Total 400 800 Balance 400 800 Weight (lbs) 46.765 kg 47.174 kg 47.219 kg Intake: Oral 0 Tube Feeding 400 600 Other 200 Other: # Voids 2 3 # Bowel Movements 0 Weight Source Bedscale Bedscale Bedscale Active Medications: Current Medications Acetaminophen (Tylenol 650mg/20.3ml Suspension) 650 mg GT Q4HR PRN PRN Reason: Pain Or Fever >100 Stop: 05/20/18 10:46 Acetylcysteine (Mucomyst 20%) 3 ml HHN Q6HRT [facility] Stop: 06/09/18 18:59 Last Admin: 04/14/18 07:20 Dose: 3 ml Albuterol/Ipratropium (Duoneb Neb) 3 ml HHN [id number] PRN PRN Reason: sob Stop: 05/20/18 10:46 Last Admin: 04/08/18 14:39 Dose: 3 ml Albuterol/Ipratropium (Duoneb Neb) 3 ml HHN Q6HRT [facility] Stop: 06/07/18 18:59 Last Admin: 04/14/18 07:20 Dose: 3 ml Bisacodyl (Dulcolax 10 Mg Supp) 10 mg RC Q96H PRN PRN Reason: Constipation Stop: 05/20/18 10:46 Last Admin: 03/22/18 19:42 Dose: 10 mg Calcium/Vitamin D (Oscal W/Vitamin D) 2 tab GT BID [facility] Stop: 05/31/18 08:59 Last Admin: 04/14/18 08:29 Dose: 2 tab Carbamazepine (Tegretol) 400 mg GT Q12HR@0900,2100 [facility] Stop: 05/20/18 10:59 Last Admin: 04/14/18 08:30 Dose: 400 mg Diltiazem HCl (Cardizem) 30 mg PO Q8HR [facility] Stop: 06/09/18 20:59 Last Admin: 04/14/18 05:08 Dose: 30 mg Diltiazem HCl (Cardizem) 10 mg IVP Q4H PRN PRN Reason: Tachycardia Stop: 06/09/18 14:59 Last Admin: 04/11/18 16:28 Dose: 10 mg Docusate Sodium (Colace) 200 mg GT BID [facility] Stop: 05/20/18 10:59 Last Admin: 04/14/18 08:30 Dose: 200 mg Hydralazine HCl (Apresoline 20 Mg/Ml) 20 mg IV Q6HR PRN PRN Reason: SBP>160 Stop: 05/23/18 13:11 Last Admin: 04/14/18 08:26 Dose: 20 mg Ibuprofen (Motrin) 400 mg PO TID [facility] Stop: 06/11/18 13:59 Last Admin: 04/14/18 08:29 Dose: 400 mg Lactobacillus Rhamnosus (Culturelle 15b) 1 each PO DAILY [facility] Stop: 05/25/18 08:59 Last Admin: 04/14/18 08:29 Dose: 1 each Lactulose (Cephulac) 10 gm GT DAILY PRN PRN Reason: Constipation Last Admin: 03/22/18 13:47 Dose: 10 gm Levetiracetam (Keppra) 500 mg GT BID [facility] Stop: 06/11/18 16:59 Last Admin: 04/14/18 08:30 Dose: 500 mg Magnesium Hydroxide (Milk Of Magnesia) 30 ml GT Q72H PRN PRN Reason: Constipation Stop: 05/20/18 10:48 Methylprednisolone Sodium Succinate (Solu-Medrol) 20 mg IV Q8HR [facility] Stop: 06/11/18 20:59 Last Admin: 04/14/18 05:07 Dose: 20 mg Metoprolol Tartrate (Lopressor) 5 mg IV Q6HR [facility] Stop: 06/07/18 17:59 Last Admin: 04/14/18 05:09 Dose: Not Given Miscellaneous (Probiotic Screen) 1 ea MC PRN PRN PRN Reason: PROTOCOL Stop: 05/24/18 17:10 Morphine Sulfate (Morphine) 1 mg IVP Q4HR PRN PRN Reason: Abdominal Pain Stop: 06/11/18 11:40 Multivitamins/Minerals (Theragran M) 15 ml GT DAILY [facility] Stop: 06/10/18 08:59 Last Admin: 04/14/18 08:30 Dose: 15 ml Nystatin/Triamcinolone Acetonide (Mycolog Ii Cream) 1 appl TP BID [facility] Stop: 06/06/18 10:29 Last Admin: 04/14/18 08:30 Dose: 1 appl Petrolatum (Zinc Oxide) 1 appl TP HS [facility] Stop: 05/21/18 20:59 Last Admin: 04/13/18 20:54 Dose: 1 appl Sodium Phosphate (Fleet Enema) 135 ml RC Q96H PRN PRN Reason: IF DULCOLAX INEFFECTIVE Stop: 05/20/18 10:46 General: No acute distress HEENT: Atraumatic Neck: Supple Cardiovascular: Regular rate Lungs: Clear to auscultation Abdomen: Bowel sounds, Soft, Other (G-tube in place), no Tender, no Distended, no Rebound, no Mass, no Guarding Extremities: no Edema Neurological: Sensation intact, Cranial nerves 3-12 NL, Reflexes 2+ Skin: Rash Psych/Mental Status: Mood NL - Procedures Procedures: Procedures Procedure Code Date ASPIR CURETT UTERUS NEC 69.59 06/12/11 CHANGE FEEDING DEVICE IN UP INTEST TRACT, CERTIFIED TECHNICIAN SPECIALIST APPROACH [id number] 01/27/16 CHANGE GASTROSTOMY TUBE 02733 05/21/15 DILATION AND CURETTAGE 61509 06/12/11 EGD BIOPSY SINGLE/MULTIPLE 87352 07/15/16 EXCISION OF ABD SUBCU/FASCIA, OPEN APPROACH [id number] 03/20/18 EXCISION OF ABDOMINAL WALL, OPEN APPROACH [id number] 03/20/18 EXCISION OF STOMACH, ENDO, DIAGN [id number] 07/15/16 EXCISION OF STOMACH, OPEN APPROACH [id number] 03/20/18 INSERTION OF FEEDING DEVICE INTO STOMACH, ENDO [id number] 07/15/16 INSERTION OF FEEDING DEVICE INTO STOMACH, OPEN APPROACH [id number] 03/20/18 [facility] PROC ABDM/PER/OMENT 56220 07/29/13 LAPAROSCOP APPENDECTOMY 47.01 07/29/13 LAPAROSCOP LYSIS-PERITONEAL ADHES 54.51 07/29/13 LAPAROSCOPY APPENDECTOMY 43732 07/29/13 RELEASE OMENTUM, OPEN APPROACH [id number] 03/20/18 REPLACE GASTROSTOMY TUBE 97.02 07/26/14 Assessment/Plan - Assessment Assessment: G-tube cellulitis Gastrocutaneous fistula Hypernatremia Contractures both upper and lower extremity Protein calorie malnutrition Dementia Cholelithiasis Osteoporosis Patient had surgery laparotomy lysis of adhesion gastrocutaneous fistula and G- tube placement Hypertension Sinus tachycardia improved - Plan Plan: Patient of ventilator Lopressor 5 mg IV every 6 hours to control blood pressure and her heart rate Cardizem 30 mg every 8 hours Cardiac exam 10 mg IV every 4 hours when necessary to control the heart rate Patient clinically stable transferred to [facility] Continue antibiotic Nutritional Asmnt/Malnutr-PDOC - Dietary Evaluation Malnutrition Findings (Please click <Entered> for more info): Nutritional Asmnt/Malnutrition Start: 03/21/18 13: 29 Text: Status: Complete Freq: Protocol: Document 03/21/18 13:29 LCHENG (Rec: 03/21/18 13:45 LCHENG [email or web address]) Nutritional Asmnt/Malnutrition Patient General Information Nutritional Screening High Risk Consult Diagnosis displacement of Gtube, Gtube site cellulitis Pertinent Medical Hx/Surgical Hx HTN, PUD?GERD, seizures, hepatitis B and C, developmentally disabled, quadriplegic Subjective Information Consult reiceved for shayna score 11. Pt seen in bed, non verbal noted. Per nurse pt is tolerating current tube feeding. CALEB Rdz asked about TF rate since pt was receiving Jevity 1.5 at [facility] and our hospital only carries Jevity 1.2. Current Diet Order/ Nutrition Support Jevity 1.2 at 40ml/hr x 20hr, providing 960kcal and 44g protein Pertinent Medications oscal w/vit D, colace, nacl 0. 9%, vancomycin Pertinent Labs / Cl 108, Cr 0.4 2/3 Cr 0.4, glucose 109, alb 3 .6 Nutritional Hx/Data Height 1.6 m Height (Calculated Centimeters) 160.0 Current Weight (lbs) 45.359 kg Weight (Calculated Kilograms) 45.4 Weight (Calculated Grams) 96470.2 [place] Body Weight 115 Body Mass Index (BMI) 17.6 Weight Status Underweight GI Symptoms GI Symptoms None Last BM not indicated Usual diet at home Jevity 1.5 at 40ml/hr x 20hr at [facility] Skin Integrity/Comment: cellulitis reddened to Gtube site shayna 11 Estimated Nutritional Goals Calories/Kcals/Kg 25-30 IBW 52kg Kcals Calculated 9706-9739 Protein g/k-1.2 Protein Calculated 52-62 Fluid: ml 1300-1560ml (1ml/kcal) Nutritional Problem 1. Problem Problem inadequate intake from enteral feeding Etiology current TF regimen not meeting nutritional needs Signs/Symptoms: current TF providing 960kcal and 44g protein Malnutrition Related to Morbid Obesity Malnutrition related to morbid obesity No Intervention/Recommendation Comments 1. Recommend to increase TF rate to Jevity 1.2 at 55ml/hr x 20hr. It provides 1320kcal, 61g protein, 888ml free water, meeting 100% of nutritional needs. CALEB Rdz notified. 2. Monitor TF rate, tolerance, wt, skin integrity and labs 3. F/U as high risk in 2-3 days, 2/5-2/6 Expected Outcomes/Goals Expected Outcomes/Goals 1. Pt to meet at least 90% of nutritional needs via nutrition support with tolerance 2. Wt stability, skin to remain intact, labs to approach WNL.
--- NOTE | 2018-04-14 11:39 | Internal Medicine Prog Note ---
Internal Medicine Subjective - Subjective Service Date: 04/14/18 (no acute events or distress) Patient is:: awake, non-verbal Per staff patient has:: no adverse event Internal Medicine Objective - Results Result Diagrams: 04/14/18 05:40 04/14/18 05:40 Recent Labs: Laboratory Last Values WBC 12.8 Th/cmm (4.8-10.8) H D 04/14/18 05:40 RBC 3.53 Mil/cmm (3.80-5.10) L 04/14/18 05:40 Hgb 11.6 gm/dL (12-16) L 04/14/18 05:40 Hct 34.5 % (41.0-60) L 04/14/18 05:40 MCV 97.9 fl (81-100) 04/14/18 05:40 MCH 32.8 pg (27.0-31.0) H 04/14/18 05:40 MCHC Differential 33.5 pg (28.0-36.0) 04/14/18 05:40 RDW 11.4 % (11.5-20.0) L 04/14/18 05:40 Plt Count 327 Th/cmm (150-400) D 04/14/18 05:40 MPV 9.6 fl 04/14/18 05:40 Add Manual Diff YES 04/09/18 04:10 Neutrophils % 84.8 % (40.0-80.0) H 04/14/18 05:40 Band Neutrophils % 1 % (0-10) 04/09/18 04:10 Lymphocytes % 7.5 % (20.0-50.0) L 04/14/18 05:40 Monocytes % 7.3 % (2.0-10.0) 04/14/18 05:40 Eosinophils % 0.2 % (0.0-5.0) 04/14/18 05:40 Basophils % 0.2 % (0.0-2.0) 04/14/18 05:40 Neutrophils (Manual) 82 % (40-80) H 04/14/18 05:40 Lymphocytes 10 % (20-50) L 04/14/18 05:40 Monocytes 8 % (2-10) 04/14/18 05:40 Eosinophils 1 % (0-5) 04/09/18 04:10 Platelet Estimate ADEQUATE (NORMAL) 04/14/18 05:40 ESR 41 mm/hr (0-30) H 03/22/18 04:50 PT 10.6 SECONDS (9.5-11.5) 04/08/18 05:30 INR 1.02 (0.5-1.4) 04/08/18 05:30 Specimen Source art 04/09/18 14:57 Sample Site Left Radial 04/09/18 14:57 pH 7.45 (7.35-7.45) 04/09/18 14:57 pCO2 33.7 mmHg (35.0-45.0) L 04/09/18 14:57 pO2 104.0 mmHg (80.0-100.0) H 04/09/18 14:57 HCO3 22.9 mEq/L (20.0-26.0) 04/09/18 14:57 Base Excess -0.3 mEq/L (-3.0-3.0) 04/09/18 14:57 O2 Saturation 98.0 % (92.0-100.0) 04/09/18 14:57 Herman Test pos 04/09/18 14:57 Vent Rate na 04/09/18 14:57 Inspired O2 30 04/09/18 14:57 Tidal Volume na 04/09/18 14:57 PEEP na 04/09/18 14:57 Pressure (ins/psv/peep) na 04/09/18 14:57 Critical Value RNinofranco 04/09/18 14:57 Sodium 140 mEq/L (136-145) 04/14/18 05:40 Potassium 4.1 mEq/L (3.5-5.1) 04/14/18 05:40 Chloride 101 mEq/L (98-107) 04/14/18 05:40 Carbon Dioxide 29.6 mEq/L (21.0-31.0) 04/14/18 05:40 Anion Gap 13.5 (7.0-16.0) 04/14/18 05:40 BUN 20 mg/dL (7-25) 04/14/18 05:40 Creatinine 0.4 mg/dL (0.6-1.2) L 04/14/18 05:40 Est GFR ( Amer) > 60.0 ml/min (>90) 04/14/18 05:40 Est GFR (Non-Af Amer) > 60.0 ml/min 04/14/18 05:40 BUN/Creatinine Ratio 50.0 04/14/18 05:40 Glucose 141 mg/dL (70-105) H 04/14/18 05:40 POC Glucose 120 MG/DL (70 - 105) H 04/11/18 10:34 Whole Bld Lactic Acid 1.20 mmol/L (0.60-1.99) 03/20/18 19:15 Calcium 8.6 mg/dL (8.6-10.3) 04/14/18 05:40 Phosphorus 3.5 mg/dL (2.5-5.0) 04/11/18 04:45 Magnesium 1.7 mg/dL (1.9-2.7) L 04/14/18 05:40 Total Bilirubin 0.4 mg/dL (0.3-1.0) 04/05/18 04:35 Direct Bilirubin 0.47 mg/dL (0.0-0.2) H 03/29/18 04:35 AST 36 U/L (13-39) 04/05/18 04:35 ALT 38 U/L (7-52) 04/05/18 04:35 Alkaline Phosphatase 85 U/L (34-104) 04/05/18 04:35 C-Reactive Protein < 0.2 mg/dL (0.0-0.9) 03/22/18 04:50 Total Protein 6.8 gm/dL (6.0-8.3) 04/05/18 04:35 Albumin 3.2 gm/dL (3.7-5.3) L 04/05/18 04:35 Globulin 3.6 gm/dL 04/05/18 04:35 Albumin/Globulin Ratio 0.9 (1.0-1.8) L 04/05/18 04:35 Prealbumin 13 mg/dL (10-36) 04/05/18 04:35 Triglycerides 109 mg/dL (<150) 04/05/18 04:35 Cholesterol 143 mg/dL (<200) 04/05/18 04:35 LDL Cholesterol Direct 87 mg/dL (75-193) 03/21/18 04:45 HDL Cholesterol 65 mg/dL (23-92) 03/21/18 04:45 Tumor Marker AFP 5.9 ng/mL (0.0-8.3) 04/12/18 05:30 TSH 1.11 uIU/ml (0.34-5.60) 03/21/18 04:45 Vancomycin Trough 14.4 ug/mL (5-10) H 03/24/18 20:28 Hepatitis A IgM Ab Negative (Negative) 04/12/18 05:30 Hep Bs Antigen Negative (Negative) 04/12/18 05:30 Hep B Core IgM Ab Negative (Negative) 04/12/18 05:30 Hepatitis C Antibody >11.0 s/co ratio (0.0-0.9) H 04/12/18 05:30 - Physical Exam Vitals and I&O: Vital Signs Temp 97.8 F 04/14/18 08:00 Pulse 138 04/14/18 11:32 Resp 20 04/14/18 11:24 BP 129/68 04/14/18 11:32 Pulse Ox 99 04/14/18 11:24 Intake & Output 04/13/18 04/14/18 04/14/18 18:59 06:59 18:59 Intake Total 400 800 Balance 400 800 Weight (lbs) 46.765 kg 47.174 kg 47.219 kg Intake: Oral 0 Tube Feeding 400 600 Other 200 Other: # Voids 2 3 # Bowel Movements 0 Weight Source Bedscale Bedscale Bedscale Active Medications: Current Medications Acetaminophen (Tylenol 650mg/20.3ml Suspension) 650 mg GT Q4HR PRN PRN Reason: Pain Or Fever >100 Stop: 05/20/18 10:46 Acetylcysteine (Mucomyst 20%) 3 ml HHN Q6HRT [facility] Stop: 06/09/18 18:59 Last Admin: 04/14/18 07:20 Dose: 3 ml Albuterol/Ipratropium (Duoneb Neb) 3 ml HHN [id number] PRN PRN Reason: sob Stop: 05/20/18 10:46 Last Admin: 04/08/18 14:39 Dose: 3 ml Albuterol/Ipratropium (Duoneb Neb) 3 ml HHN Q6HRT [facility] Stop: 06/07/18 18:59 Last Admin: 04/14/18 07:20 Dose: 3 ml Bisacodyl (Dulcolax 10 Mg Supp) 10 mg RC Q96H PRN PRN Reason: Constipation Stop: 05/20/18 10:46 Last Admin: 03/22/18 19:42 Dose: 10 mg Calcium/Vitamin D (Oscal W/Vitamin D) 2 tab GT BID [facility] Stop: 05/31/18 08:59 Last Admin: 04/14/18 08:29 Dose: 2 tab Carbamazepine (Tegretol) 400 mg GT Q12HR@0900,2100 [facility] Stop: 05/20/18 10:59 Last Admin: 04/14/18 08:30 Dose: 400 mg Diltiazem HCl (Cardizem) 30 mg PO Q8HR [facility] Stop: 06/09/18 20:59 Last Admin: 04/14/18 05:08 Dose: 30 mg Diltiazem HCl (Cardizem) 10 mg IVP Q4H PRN PRN Reason: Tachycardia Stop: 06/09/18 14:59 Last Admin: 04/11/18 16:28 Dose: 10 mg Docusate Sodium (Colace) 200 mg GT BID [facility] Stop: 05/20/18 10:59 Last Admin: 04/14/18 08:30 Dose: 200 mg Hydralazine HCl (Apresoline 20 Mg/Ml) 20 mg IV Q6HR PRN PRN Reason: SBP>160 Stop: 05/23/18 13:11 Last Admin: 04/14/18 08:26 Dose: 20 mg Magnesium Sulfate (Magnesium Sulfate Premix) 2 gm in 50 mls @ 25 mls/hr IV X1 ONE Stop: 04/14/18 13:26 Ibuprofen (Motrin) 400 mg PO TID [facility] Stop: 06/11/18 13:59 Last Admin: 04/14/18 08:29 Dose: 400 mg Lactobacillus Rhamnosus (Culturelle 15b) 1 each PO DAILY [facility] Stop: 05/25/18 08:59 Last Admin: 04/14/18 08:29 Dose: 1 each Lactulose (Cephulac) 10 gm GT DAILY PRN PRN Reason: Constipation Last Admin: 03/22/18 13:47 Dose: 10 gm Levetiracetam (Keppra) 500 mg GT BID [facility] Stop: 06/11/18 16:59 Last Admin: 04/14/18 08:30 Dose: 500 mg Magnesium Hydroxide (Milk Of Magnesia) 30 ml GT Q72H PRN PRN Reason: Constipation Stop: 05/20/18 10:48 Methylprednisolone Sodium Succinate (Solu-Medrol) 20 mg IV Q8HR [facility] Stop: 06/11/18 20:59 Last Admin: 04/14/18 05:07 Dose: 20 mg Metoprolol Tartrate (Lopressor) 5 mg IV Q6HR [facility] Stop: 06/07/18 17:59 Last Admin: 04/14/18 11:32 Dose: 5 mg Miscellaneous (Probiotic Screen) 1 ea MC PRN PRN PRN Reason: PROTOCOL Stop: 05/24/18 17:10 Morphine Sulfate (Morphine) 1 mg IVP Q4HR PRN PRN Reason: Abdominal Pain Stop: 06/11/18 11:40 Multivitamins/Minerals (Theragran M) 15 ml GT DAILY [facility] Stop: 06/10/18 08:59 Last Admin: 04/14/18 08:30 Dose: 15 ml Nystatin/Triamcinolone Acetonide (Mycolog Ii Cream) 1 appl TP BID [facility] Stop: 06/06/18 10:29 Last Admin: 04/14/18 08:30 Dose: 1 appl Petrolatum (Zinc Oxide) 1 appl TP HS [facility] Stop: 05/21/18 20:59 Last Admin: 04/13/18 20:54 Dose: 1 appl Sodium Phosphate (Fleet Enema) 135 ml RC Q96H PRN PRN Reason: IF DULCOLAX INEFFECTIVE Stop: 05/20/18 10:46 General: thin, NAD HEENT: NC/AT, PERRLA, EOMI Neck: No JVD, no No thyromegaly Lungs: CTAB Cardiovascular: tachy, no RRR Abdomen: soft, non-tender, +GT, other (GT SITE WITH IMPROVED ERYTHEMA), no +GT - redness, no +GT - discharge Extremities: clear Neurological: no change, spastic - Procedures Procedures: Procedures Procedure Code Date ASPIR CURETT UTERUS NEC 69.59 06/12/11 CHANGE FEEDING DEVICE IN UP INTEST TRACT, CASINO ACCOUNTANT APPROACH [id number] 01/27/16 CHANGE GASTROSTOMY TUBE 44288 05/21/15 DILATION AND CURETTAGE 40995 06/12/11 EGD BIOPSY SINGLE/MULTIPLE 37233 07/15/16 EXCISION OF ABD SUBCU/FASCIA, OPEN APPROACH [id number] 03/20/18 EXCISION OF ABDOMINAL WALL, OPEN APPROACH [id number] 03/20/18 EXCISION OF STOMACH, ENDO, DIAGN [id number] 07/15/16 EXCISION OF STOMACH, OPEN APPROACH [id number] 03/20/18 INSERTION OF FEEDING DEVICE INTO STOMACH, ENDO [id number] 07/15/16 INSERTION OF FEEDING DEVICE INTO STOMACH, OPEN APPROACH [id number] 03/20/18 [facility] PROC ABDM/PER/OMENT 57811 07/29/13 LAPAROSCOP APPENDECTOMY 47.01 07/29/13 LAPAROSCOP LYSIS-PERITONEAL ADHES 54.51 07/29/13 LAPAROSCOPY APPENDECTOMY [id number] 07/29/13 RELEASE OMENTUM, OPEN APPROACH [id number] 03/20/18 REPLACE GASTROSTOMY TUBE 97.02 07/26/14 Internal Medicine Assmt/Plan - Assessment Assessment: 1. GTUBE MALFUNCTION WITH LEAKAGE-S/P REPLACEMENT 2. GT SITE CELLULITIS/DRAINAGE (GC FISTULA)-S/P MINI EXLAP WITH GC TAKE DOWN () 3. COMPLEX WOUND INFX-PSEUDOMONAS AERUGINOSA 3. HISTORY OF DYSPHAGIA-PEG PLACEMENT 4. HX OF CONSTIPATION 5. HYPONATREMIA--RESOLVED 6. HX OF SEIZURE DISORDER-STABLE 7. HX OF INTELLECTUAL DISABILITY 8. S/P PICC LINE PLACEMENT 9. ELECTROLYTE IMBALANCE-STABLE/MONITOR. - Plan Plan: CONT WITH CURRENT TELE CARE AND MGT CONT WITH CURRENT PEG FEEDS/MONITOR FOR RESIDUALS CONT WITH LOCAL WOUND CARE CONT WITH OTHER MEDS SCHEDULED MONITOR LYTES. GI/ID FU AWAITING PLACEMENT Nutritional Asmnt/Malnutr-PDOC - Dietary Evaluation Malnutrition Findings (Please click <Entered> for more info): Nutritional Asmnt/Malnutrition Start: 03/21/18 13: 29 Text: Status: Complete Freq: Protocol: Document 03/21/18 13:29 LCHENG (Rec: 03/21/18 13:45 LCHENG [email or web address]) Nutritional Asmnt/Malnutrition Patient General Information Nutritional Screening High Risk Consult Diagnosis displacement of Gtube, Gtube site cellulitis Pertinent Medical Hx/Surgical Hx HTN, PUD?GERD, seizures, hepatitis B and C, developmentally disabled, quadriplegic Subjective Information Consult reiceved for shayna score 11. Pt seen in bed, non verbal noted. Per nurse pt is tolerating current tube feeding. CALEB Rdz asked about TF rate since pt was receiving Jevity 1.5 at detention and our hospital only carries Jevity 1.2. Current Diet Order/ Nutrition Support Jevity 1.2 at 40ml/hr x 20hr, providing 960kcal and 44g protein Pertinent Medications oscal w/vit D, colace, nacl 0. 9%, vancomycin Pertinent Labs 2/4 Cl 108, Cr 0.4 2/3 Cr 0.4, glucose 109, alb 3 .6 Nutritional Hx/Data Height 1.6 m Height (Calculated Centimeters) 160.0 Current Weight (lbs) 45.359 kg Weight (Calculated Kilograms) 45.4 Weight (Calculated Grams) 53701.2 [place] Body Weight 115 Body Mass Index (BMI) 17.6 Weight Status Underweight GI Symptoms GI Symptoms None Last BM not indicated Usual diet at home Jevity 1.5 at 40ml/hr x 20hr at [facility] Skin Integrity/Comment: cellulitis reddened to Gtube site shayna 11 Estimated Nutritional Goals Calories/Kcals/Kg 25-30 IBW 52kg Kcals Calculated 7689-5112 Protein g/k-1.2 Protein Calculated 52-62 Fluid: ml 1300-1560ml (1ml/kcal) Nutritional Problem 1. Problem Problem inadequate intake from enteral feeding Etiology current TF regimen not meeting nutritional needs Signs/Symptoms: current TF providing 960kcal and 44g protein Malnutrition Related to Morbid Obesity Malnutrition related to morbid obesity No Intervention/Recommendation Comments 1. Recommend to increase TF rate to Jevity 1.2 at 55ml/hr x 20hr. It provides 1320kcal, 61g protein, 888ml free water, meeting 100% of nutritional needs. CALEB Rdz notified. 2. Monitor TF rate, tolerance, wt, skin integrity and labs 3. F/U as high risk in 2-3 days, 2/5-2/6 Expected Outcomes/Goals Expected Outcomes/Goals 1. Pt to meet at least 90% of nutritional needs via nutrition support with tolerance 2. Wt stability, skin to remain intact, labs to approach WNL.
[2018-04-14] MEDS ORDERED: HYDROmorphone 1 mg/mL 1mL Syr IVP PRN (11:47)
[2018-04-14] MEDS ORDERED: Mag Sulfate 2gm/50mL Premix 2 GM/50 ML BAG IV ONE ×2 (12:00→14:16)
--- NOTE | 2018-04-14 21:31 | GI Progress Note ---
Subjective - Review of Systems Service Date: 04/14/18 Events since last encounter: no events Objective - Results Result Diagrams: 04/14/18 05:40 04/14/18 05:40 Recent Labs: Laboratory Last Values WBC 12.8 Th/cmm (4.8-10.8) H D 04/14/18 05:40 RBC 3.53 Mil/cmm (3.80-5.10) L 04/14/18 05:40 Hgb 11.6 gm/dL (12-16) L 04/14/18 05:40 Hct 34.5 % (41.0-60) L 04/14/18 05:40 MCV 97.9 fl (81-100) 04/14/18 05:40 MCH 32.8 pg (27.0-31.0) H 04/14/18 05:40 MCHC Differential 33.5 pg (28.0-36.0) 04/14/18 05:40 RDW 11.4 % (11.5-20.0) L 04/14/18 05:40 Plt Count 327 Th/cmm (150-400) D 04/14/18 05:40 MPV 9.6 fl 04/14/18 05:40 Add Manual Diff YES 04/09/18 04:10 Neutrophils % 84.8 % (40.0-80.0) H 04/14/18 05:40 Band Neutrophils % 1 % (0-10) 04/09/18 04:10 Lymphocytes % 7.5 % (20.0-50.0) L 04/14/18 05:40 Monocytes % 7.3 % (2.0-10.0) 04/14/18 05:40 Eosinophils % 0.2 % (0.0-5.0) 04/14/18 05:40 Basophils % 0.2 % (0.0-2.0) 04/14/18 05:40 Neutrophils (Manual) 82 % (40-80) H 04/14/18 05:40 Lymphocytes 10 % (20-50) L 04/14/18 05:40 Monocytes 8 % (2-10) 04/14/18 05:40 Eosinophils 1 % (0-5) 04/09/18 04:10 Platelet Estimate ADEQUATE (NORMAL) 04/14/18 05:40 ESR 41 mm/hr (0-30) H 03/22/18 04:50 PT 10.6 SECONDS (9.5-11.5) 04/08/18 05:30 INR 1.02 (0.5-1.4) 04/08/18 05:30 Specimen Source art 04/09/18 14:57 Sample Site Left Radial 04/09/18 14:57 pH 7.45 (7.35-7.45) 04/09/18 14:57 pCO2 33.7 mmHg (35.0-45.0) L 04/09/18 14:57 pO2 104.0 mmHg (80.0-100.0) H 04/09/18 14:57 HCO3 22.9 mEq/L (20.0-26.0) 04/09/18 14:57 Base Excess -0.3 mEq/L (-3.0-3.0) 04/09/18 14:57 O2 Saturation 98.0 % (92.0-100.0) 04/09/18 14:57 Herman Test pos 04/09/18 14:57 Vent Rate na 04/09/18 14:57 Inspired O2 30 04/09/18 14:57 Tidal Volume na 04/09/18 14:57 PEEP na 04/09/18 14:57 Pressure (ins/psv/peep) na 04/09/18 14:57 Critical Value RNinofranco 04/09/18 14:57 Sodium 140 mEq/L (136-145) 04/14/18 05:40 Potassium 4.1 mEq/L (3.5-5.1) 04/14/18 05:40 Chloride 101 mEq/L (98-107) 04/14/18 05:40 Carbon Dioxide 29.6 mEq/L (21.0-31.0) 04/14/18 05:40 Anion Gap 13.5 (7.0-16.0) 04/14/18 05:40 BUN 20 mg/dL (7-25) 04/14/18 05:40 Creatinine 0.4 mg/dL (0.6-1.2) L 04/14/18 05:40 Est GFR ( Amer) > 60.0 ml/min (>90) 04/14/18 05:40 Est GFR (Non-Af Amer) > 60.0 ml/min 04/14/18 05:40 BUN/Creatinine Ratio 50.0 04/14/18 05:40 Glucose 141 mg/dL (70-105) H 04/14/18 05:40 POC Glucose 120 MG/DL (70 - 105) H 04/11/18 10:34 Whole Bld Lactic Acid 1.20 mmol/L (0.60-1.99) 03/20/18 19:15 Calcium 8.6 mg/dL (8.6-10.3) 04/14/18 05:40 Phosphorus 3.5 mg/dL (2.5-5.0) 04/11/18 04:45 Magnesium 1.7 mg/dL (1.9-2.7) L 04/14/18 05:40 Total Bilirubin 0.4 mg/dL (0.3-1.0) 04/05/18 04:35 Direct Bilirubin 0.47 mg/dL (0.0-0.2) H 03/29/18 04:35 AST 36 U/L (13-39) 04/05/18 04:35 ALT 38 U/L (7-52) 04/05/18 04:35 Alkaline Phosphatase 85 U/L (34-104) 04/05/18 04:35 C-Reactive Protein < 0.2 mg/dL (0.0-0.9) 03/22/18 04:50 Total Protein 6.8 gm/dL (6.0-8.3) 04/05/18 04:35 Albumin 3.2 gm/dL (3.7-5.3) L 04/05/18 04:35 Globulin 3.6 gm/dL 04/05/18 04:35 Albumin/Globulin Ratio 0.9 (1.0-1.8) L 04/05/18 04:35 Prealbumin 13 mg/dL (10-36) 04/05/18 04:35 Triglycerides 109 mg/dL (<150) 04/05/18 04:35 Cholesterol 143 mg/dL (<200) 04/05/18 04:35 LDL Cholesterol Direct 87 mg/dL (75-193) 03/21/18 04:45 HDL Cholesterol 65 mg/dL (23-92) 03/21/18 04:45 Tumor Marker AFP 5.9 ng/mL (0.0-8.3) 04/12/18 05:30 TSH 1.11 uIU/ml (0.34-5.60) 03/21/18 04:45 Vancomycin Trough 14.4 ug/mL (5-10) H 03/24/18 20:28 Hepatitis A IgM Ab Negative (Negative) 04/12/18 05:30 Hep Bs Antigen Negative (Negative) 04/12/18 05:30 Hep B Core IgM Ab Negative (Negative) 04/12/18 05:30 Hepatitis C Antibody >11.0 s/co ratio (0.0-0.9) H 04/12/18 05:30 - Physical Exam Vitals and I&O: Vital Signs Temp 98.3 F 04/14/18 19:00 Pulse 98 04/14/18 19:43 Resp 20 04/14/18 19:43 BP 142/59 04/14/18 19:00 Pulse Ox 98 04/14/18 19:43 Intake & Output 04/14/18 04/14/18 04/15/18 06:59 18:59 06:59 Intake Total 800 Balance 800 Weight (lbs) 47.174 kg 47.219 kg Intake: Tube Feeding 600 Other 200 Other: # Voids 3 Weight Source Bedscale Bedscale Active Medications: Current Medications Acetaminophen (Tylenol 650mg/20.3ml Suspension) 650 mg GT Q4HR PRN PRN Reason: Pain Or Fever >100 Stop: 05/20/18 10:46 Acetylcysteine (Mucomyst 20%) 3 ml HHN Q6HRT [facility] Stop: 06/09/18 18:59 Last Admin: 04/14/18 18:22 Dose: 3 ml Albuterol/Ipratropium (Duoneb Neb) 3 ml HHN [id number] PRN PRN Reason: sob Stop: 05/20/18 10:46 Last Admin: 04/08/18 14:39 Dose: 3 ml Albuterol/Ipratropium (Duoneb Neb) 3 ml HHN Q6HRT [facility] Stop: 06/07/18 18:59 Last Admin: 04/14/18 18:22 Dose: 3 ml Bisacodyl (Dulcolax 10 Mg Supp) 10 mg RC Q96H PRN PRN Reason: Constipation Stop: 05/20/18 10:46 Last Admin: 02/05/19 19:42 Dose: 10 mg Calcium/Vitamin D (Oscal W/Vitamin D) 2 tab GT BID [facility] Stop: 05/31/18 08:59 Last Admin: 04/14/18 17:26 Dose: 2 tab Carbamazepine (Tegretol) 400 mg GT Q12HR@0900,2100 [facility] Stop: 05/20/18 10:59 Last Admin: 04/14/18 08:30 Dose: 400 mg Diltiazem HCl (Cardizem) 30 mg PO Q8HR [facility] Stop: 06/09/18 20:59 Last Admin: 04/14/18 14:01 Dose: 30 mg Diltiazem HCl (Cardizem) 10 mg IVP Q4H PRN PRN Reason: Tachycardia Stop: 06/09/18 14:59 Last Admin: 04/11/18 16:28 Dose: 10 mg Docusate Sodium (Colace) 200 mg GT BID [facility] Stop: 05/20/18 10:59 Last Admin: 04/14/18 17:25 Dose: 200 mg Hydralazine HCl (Apresoline 20 Mg/Ml) 20 mg IV Q6HR PRN PRN Reason: SBP>160 Stop: 05/23/18 13:11 Last Admin: 04/14/18 08:26 Dose: 20 mg Hydromorphone HCl (Dilaudid) 1 mg IVP Q4HR PRN PRN Reason: Abdominal Pain Stop: 06/13/18 11:46 Ibuprofen (Motrin) 400 mg PO TID [facility] Stop: 06/11/18 13:59 Last Admin: 04/14/18 14:00 Dose: 400 mg Lactobacillus Rhamnosus (Culturelle 15b) 1 each PO DAILY [facility] Stop: 05/25/18 08:59 Last Admin: 04/14/18 08:29 Dose: 1 each Lactulose (Cephulac) 10 gm GT DAILY PRN PRN Reason: Constipation Last Admin: 03/22/18 13:47 Dose: 10 gm Levetiracetam (Keppra) 500 mg GT BID [facility] Stop: 06/11/18 16:59 Last Admin: 04/14/18 17:25 Dose: 500 mg Magnesium Hydroxide (Milk Of Magnesia) 30 ml GT Q72H PRN PRN Reason: Constipation Stop: 05/20/18 10:48 Methylprednisolone Sodium Succinate (Solu-Medrol) 20 mg IV Q8HR [facility] Stop: 06/11/18 20:59 Last Admin: 04/14/18 13:57 Dose: 20 mg Metoprolol Tartrate (Lopressor) 5 mg IV Q6HR [facility] Stop: 06/07/18 17:59 Last Admin: 04/14/18 17:27 Dose: 5 mg Miscellaneous (Probiotic Screen) 1 ea MC PRN PRN PRN Reason: PROTOCOL Stop: 05/24/18 17:10 Morphine Sulfate (Morphine) 1 mg IVP Q4HR PRN PRN Reason: Abdominal Pain Stop: 06/11/18 11:40 Multivitamins/Minerals (Theragran M) 15 ml GT DAILY [facility] Stop: 06/10/18 08:59 Last Admin: 04/14/18 08:30 Dose: 15 ml Nystatin/Triamcinolone Acetonide (Mycolog Ii Cream) 1 appl TP BID [facility] Stop: 06/06/18 10:29 Last Admin: 04/14/18 08:30 Dose: 1 appl Petrolatum (Zinc Oxide) 1 appl TP HS [facility] Stop: 05/21/18 20:59 Last Admin: 04/13/18 20:54 Dose: 1 appl Sodium Phosphate (Fleet Enema) 135 ml RC Q96H PRN PRN Reason: IF DULCOLAX INEFFECTIVE Stop: 05/20/18 10:46 General: No acute distress HEENT: Atraumatic Neck: Supple Cardiovascular: Regular rate Lungs: Clear to auscultation Abdomen: Bowel sounds, Soft, Other (G-tube in place), no Tender, no Distended, no Rebound, no Mass, no Guarding Extremities: no Edema Neurological: Sensation intact, Cranial nerves 3-12 NL, Reflexes 2+ Skin: Rash Psych/Mental Status: Mood NL - Procedures Procedures: Procedures Procedure Code Date ASPIR CURETT UTERUS NEC 69.59 06/12/11 CHANGE FEEDING DEVICE IN UP INTEST TRACT, MEAT LUGGER APPROACH [id number] 01/27/16 CHANGE GASTROSTOMY TUBE 45659 05/21/15 DILATION AND CURETTAGE 84679 06/12/11 EGD BIOPSY SINGLE/MULTIPLE 25889 07/15/16 EXCISION OF ABD SUBCU/FASCIA, OPEN APPROACH [id number] 03/20/18 EXCISION OF ABDOMINAL WALL, OPEN APPROACH [id number] 03/20/18 EXCISION OF STOMACH, ENDO, DIAGN [id number] 07/15/16 EXCISION OF STOMACH, OPEN APPROACH [id number] 03/20/18 INSERTION OF FEEDING DEVICE INTO STOMACH, ENDO [id number] 07/15/16 INSERTION OF FEEDING DEVICE INTO STOMACH, OPEN APPROACH [id number] 03/20/18 LAPARO PROC ABDM/PER/OMENT 15598 07/29/13 LAPAROSCOP APPENDECTOMY 47.01 07/29/13 LAPAROSCOP LYSIS-PERITONEAL ADHES 54.51 07/29/13 LAPAROSCOPY APPENDECTOMY 32042 07/29/13 RELEASE OMENTUM, OPEN APPROACH [id number] 03/20/18 REPLACE GASTROSTOMY TUBE 97.02 07/26/14 Assessment/Plan - Assessment Assessment: Assessment: # G tube site cellulitis # Dysphagia # Developmental delay As of 03/25, the site looked worse thus the G tube was pulled. Will need to wait for the area to heal prior to inserting a new one On 03/30, there is still erythema and some leakage from the area. Unclear if proper wound care is being applied to this area. On 04/01, the site looks more inflamed. Does not appear to be leakage from NG feeding, but infection on the skin is not improving. on 04/02 - NG tube was pulled bc of tip extruding out of gc fistula site 04/08 - Dr Molina performed fistulectomy and surgical G tube placement Plan: -appreciate surgical mangement -Start tube feeds per surgical recommendation -G tube support and care
--- NOTE | 2018-04-15 00:27 | Progress Notes ---
DATE: 04/14/2018 PULMONARY PROGRESS NOTE SUBJECTIVE: The patient appears to be okay, less congested. PHYSICAL EXAMINATION: VITAL SIGNS: Temperature is 97.8, pulse 90, respirations 18, blood pressure 120/68, and saturation 98%. CHEST: Good breath sounds, no wheezing, few rhonchi. HEART: Regular rate and rhythm. ABDOMEN: Soft. No tenderness. EXTREMITIES: No edema. LABORATORY DATA: WBC is 12.8, hemoglobin is 11.6, platelets 327. Sodium 140, potassium 4.1, BUN 20, creatinine 0.4. Chest x-ray showed no obvious infiltrates, subdiaphragmatic air on the right side. IMPRESSION: 1. Respiratory failure. 2. Status post abdominal surgery. 3. Weakness. 4. Dementia. PLAN: 1. Continue antibiotics. 2. Supportive care and pulmonary toilet. 3. GI followup. JOB# [id number]
--- NOTE | 2018-04-15 11:33 | Discharge Summary ---
DATE OF DISCHARGE: 04/14/2018 ADMITTING DIAGNOSES: 1. G-tube site cellulitis/G-tube site malfunction with leakage. 2. Rule out G-tube site abscess versus fistula formation. 3. Fecal impaction. SECONDARY DIAGNOSES: 1. History of dysphagia with PEG placement. 2. History of mental retardation/intellectual disability. 3. History of previous gastritis/gastrointestinal bleed. 4. History of seizure disorder. 5. History of essential hypertension. 6. History of hepatitis B positive. DISCHARGE DIAGNOSES: 1. G-tube malfunction with leakage status post replacement. 2. G-tube site cellulitis/drainage with gastrocutaneous fistula - status post mini ex-lap with gastrocutaneous fistula takedown done on 04/08/2018. 3. Complex wound infection at G-tube site - Pseudomonas aeruginosa. CONSULTANTS: Dr. Logan, GI; Dr. Colton Rizzo, ID; Dr. Freddie Molina, General Surgery. MAJOR PROCEDURES AND DIAGNOSTICS: 1) There was an upper GI series done on 03/20/2018 showing gastrostomy tube in the stomach. 2) Abdominal/pelvic CT done on 03/20/2018 showed cholelithiasis. Multiple obstructing bilateral calculi. Fecal impaction. Gastrostomy tube in stomach with extravasated contrast material on the skin surface. 3) KUB done on 03/22/2018 shows overall mild decrease in stool burden compared to recent CT examination on 03/20/2018. Persistent moderate stool is seen in the region of the ascending colon and rectum. 4) On 04/08/2018, the patient underwent; 1. Laparotomy. 2. Lysis of adhesions. 3. Takedown of gastrocutaneous fistula. 4. Wedge resection of stomach fistula site. 5. Open gastrostomy with a 20-Serbian 15 mL balloon placement. 5) On 04/07/2018, the patient underwent a 2D echo showing minimal hypertrophy of the left ventricle with an EF of 73%. BRIEF HOSPITAL COURSE: This is a 62-year-old female, a resident of [facility], who was transferred to the ER given G-tube site redness with drainage and leaking of G-tube formula. It was unknown as to how long this had been ongoing. The patient underwent the above-mentioned upper GI series and abdominal pelvic CT while in the ED. On admission, her vital signs were overall stable with a temperature of 99.1 and a pulse of anywhere from 98-105. Her initial lab work did not yield any major abnormalities; therefore, the patient was initially admitted to the medical surgical floor and was placed on broad-spectrum IV antibiotics, IV Protonix and her G-tube feeds were withheld. GI consult was asked for and TPN was started given the extent of cellulitis and the potential for a gastrocutaneous fistula. She remained stable initially tolerating TPN well and her electrolytes were repleted as needed. It was recommended by GI given the extent of the cellulitis and the formation of the gastrocutaneous fistula for the patient to remain without G-tube feeds for a week or two minimally. Microbiology on the G-tube site came back as Pseudomonas aeruginosa and her antibiotics were tailored by Infectious Disease specialty sales consultant. The patient eventually underwent the above-mentioned procedure by surgery and post-procedure, she was transferred to the ICU on the ventilator for further management and care. Once in the ICU, a pulmonary consult was asked for vent management. The patient was eventually extubated and was transferred to the medical floor where she remained stable. Multiple attempts to transfer the patient to a skilled nurse facility were unsuccessful, but eventually the patient was placed at [facility] for further antibiotic care and treatment. The patient was eventually transferred to the [facility] where she remained stable. Her G-tube feeds were slowly increased to the desired rate with no residuals noted. MEDICATIONS ON DISCHARGE: Cipro 250 b.i.d. x 10 days; aspirin 81 q. daily; Nexium 40 q. daily; Tylenol 325 q. 4 hours p.r.n.; morphine 1 mg IV q. 4 hours p.r.n. for severe pain; multivitamins and proteins q. daily; bisacodyl, Dulcolax 10 mL q. daily; calcium citrate with vitamin D q. daily; carbamazepine 400 mg q. 12 hours; docusate sodium 200 mg b.i.d.; Fleet enema p.r.n. q. 96 hours for severe constipation; lactulose 10 grams q. daily; Keppra 5 mL b.i.d.; metoprolol 12.5 q.p.m.; multivitamins and minerals. DISPOSITION: The patient was discharged to [facility] for further management and care. [facility]# [id number] [facility]
== END 2018-04-14 20:45 | DRG 220 ==
LOC: ER 15:46 → MSI 19:25 → ICU 04-08 12:41 → TELE 04-12 06:59
PROVIDERS: ADMIT Internal Medicine; ATTEND Internal Medicine
PROC: 3E0336Z Introduction of Nutritional Substance into Peripheral Vein, Percutaneous Approach (ICD-10-PCS; 2018-03-24)
PROC: 02H633Z Insertion of Infusion Device into Right Atrium, Percutaneous Approach (ICD-10-PCS; 2018-03-29)
PROC: 5A1935Z Respiratory Ventilation, Less than 24 Consecutive Hours (ICD-10-PCS; 2018-03-29)
PROC: 0BH17EZ Insertion of Endotracheal Airway into Trachea, Via Natural or Artificial Opening (ICD-10-PCS; 2018-03-29)
PROC: 0D20XUZ Change Feeding Device in Upper Intestinal Tract, External Approach (ICD-10-PCS; principal; 2018-04-08)
PROC: 0DB60ZZ Excision of Stomach, Open Approach (ICD-10-PCS; 2018-04-08)
PROC: 0DH60UZ Insertion of Feeding Device into Stomach, Open Approach (ICD-10-PCS; 2018-04-08)
DX: K94.22 Gastrostomy infection (principal); J18.9 Pneumonia, unspecified organism; K56.609 Unspecified intestinal obstruction, unspecified as to partial versus complete obstruction; E46 Unspecified protein-calorie malnutrition; R64 Cachexia; K31.6 Fistula of stomach and duodenum; R53.2 Functional quadriplegia; F03.90 Unspecified dementia, unspecified severity, without behavioral disturbance, psychotic disturbance, mood disturbance, and anxiety; B19.10 Unspecified viral hepatitis B without hepatic coma; L03.311 Cellulitis of abdominal wall; I10 Essential (primary) hypertension; F79 Unspecified intellectual disabilities; B19.20 Unspecified viral hepatitis C without hepatic coma; G40.909 Epilepsy, unspecified, not intractable, without status epilepticus; K66.0 Peritoneal adhesions (postprocedural) (postinfection); K21.9 Gastro-esophageal reflux disease without esophagitis; M81.0 Age-related osteoporosis without current pathological fracture; R13.10 Dysphagia, unspecified; K94.23 Gastrostomy malfunction; B96.5 Pseudomonas (aeruginosa) (mallei) (pseudomallei) as the cause of diseases classified elsewhere; K59.09 Other constipation; K80.20 Calculus of gallbladder without cholecystitis without obstruction; R00.0 Tachycardia, unspecified; Z68.1 Body mass index [BMI] 19.9 or less, adult; Z86.19 Personal history of other infectious and parasitic diseases
CPT/HCPCS: 36415-UA; 36600-90; 71045-TC; 74000-TC; 80048-TC; 80053-TC; 80061-TC; 80074-90; 80076-TC; 80202-TC; 82105-90; 82465-TC; 82803-TC; 82948-90; 83605; 83735-TC; 84100-TC; 84134-90; 84443-TC; 84478-TC; 85007-TC; 85025-TC; 85610-TC; 85652-TC; 86141-TC; 87070; 87070-90; 90779; 90799; 93005; 94002; 94003; 94640; 94664; 94667; 94668; 94760; 96372; 99201; A4217; J0360; J0610; J0690; J0696; J0744; J1815; J1953; J2185; J2270; J2405; J2704; J2710; J2930; J3010; J3370; J3475; J3480; J3490; J7030; J7040; J7131; X6258; X6598; Z7610